=== PATIENT | female | born 1955 | race Hispanic/Latino ===

== ENCOUNTER 2016-12-11 16:50 | Observation (INO) | payer OTHER ==
[2016-12-11 17:09] VITALS: BMI 25.9
--- NOTE | 2016-12-11 18:12 | ED PDOC ---
Arrival/HPI - General Historian: Patient, Family EM Caveat: Altered Mental Status <Darío Bird - Last Filed: 12/11/16 21:58> <AmandaNain - Last Filed: 12/11/16 22:14> - General Chief Complaint: Altered Mental Status Time Seen by Provider: 12/11/16 17:15 - History of Present Illness Narrative History of Present Illness (Text): 12/11/16 18:02 This is a 61 year old female with Past medical history of hypertension, Bone cancer who presented to the Emergency department brought in by son-in-law for altered mental status. The family member states that at baseline his mother-in- law is a high functioning intelligent person, but she is now very confused and slow to respond to questions. The son states that patient showed up in front of his home this morning. The patient seems to have been brought to his home in a vehicle by an unknown transport driver. The son stated that he last saw her well about 2 days ago. The son went to her house and found her medications spilled everywhere. Of note, the son states that the patient's had HIV/AIDS, and the patient has been tested multiple times in the past with negative results. The son states that the patient has been complaining of lethargy for the past couple of weeks as well as diarrhea. At time of encounter, patient herself is complaining only of lightheadedness and dizziness. PMHx: hypertension, Bone cancer. Per review of the chart, patient has had left breast biopsy in 2016 showing Invasive ductal carcinoma. PSHx: Patient denies surgical history. Per review of the chart, patient also had and hip surgery. Allergies: NKDA Social: Per the son, patient is a former alcoholic, quitting 1 month ago. Patient is a former cocaine and heroin user, snorting both. PMD: Dr. Callahan Heme/Onc: Dr. Cedeno in [place] 12/11/16 18:17 (Darío Bird) Past Medical History - Infectious Disease Hx of Infectious Diseases: None - Tetanus Immunization Tetanus Immunization: Unknown - Past Medical History Past Medical History: Non-Contributing - Cardiac Hx Hypertension: Yes - Hematological/Oncological Hx Cancer: Yes (Bone cancer) - Musculoskeletal/Rheumatological Hx Osteoporosis: Yes Other/Comment: Bone CA - Psychiatric Hx Substance Use: Yes (snorted cocaine and heroin in the past. former alcoholic) - Surgical History Hx Section: Yes Other/Comment: right hip surgery - Anesthesia Hx Anesthesia: Yes Hx Anesthesia Reactions: No - Suicidal Assessment Feels Threatened In Home Enviroment: No <Darío Bird - Last Filed: 12/11/16 21:58> - Provider Review Nursing Documentation Reviewed: Yes <Nain Patel - Last Filed: 12/11/16 22:14> Family/Social History - Physician Review Nursing Documentation Reviewed: Yes Smoking Status: Light Smoker < 10 Cigarettes Daily Hx Alcohol Use: Yes Amount per day: 3 Hx Substance Use: Yes (used to snort cocaine and heroin) Hx Substance Use Treatment: No <Darío Bird - Last Filed: 12/11/16 21:58> Family/Social History: No Known Family HX <Nain Patel - Last Filed: 12/11/16 22:14> Allergies/Home Meds <Darío Bird - Last Filed: 12/11/16 21:58> <Nain Patel - Last Filed: 12/11/16 22:14> Allergies/Adverse Reactions: Allergies No Known Allergies Allergy (Verified 10/07/14 15:26) Home Medications: Home Meds Medication Instructions Recorded Confirmed Cholecalciferol [Vitamin D 1000 IU] 1 tab PO DAILY 12/11/16 12/11/16 DULoxetine [Cymbalta] 1 tab PO DAILY 12/11/16 12/11/16 Diazepam [Valium] 5 mg PO DAILY 12/11/16 12/11/16 Gabapentin [Neurontin] 1 tab PO TID 12/11/16 12/11/16 Lisinopril [Zestril] 1 tab PO DAILY 12/11/16 12/11/16 Loperamide [Imodium] 1 cap PO DAILY PRN 12/11/16 12/11/16 Loratadine [Claritin] 1 tab PO DAILY 12/11/16 12/11/16 Vitamin B Complex [Super B-50 1 cap PO DAILY 12/11/16 12/11/16 Complex] Zolpidem [Ambien] 1 tab PO HS 12/11/16 12/11/16 oxyCODONE [oxyCODONE Immediate 1 tab PO Q6H PRN 12/11/16 12/11/16 Release Tab] Review of Systems - Review of Systems Constitutional: Fatigue Eyes: Normal ENT: Normal Cardiovascular: Normal Gastrointestinal: Diarrhea (per son-in-law). absent: Abdominal Pain Genitourinary Female: Normal Musculoskeletal: Normal Skin: Normal Neurological: Dizziness Endocrine: Normal Hemo/Lymphatic: Normal Psychiatric: Normal <Darío Bird - Last Filed: 12/11/16 21:58> Physical Exam Vital Signs Reviewed: Yes Temperature: Afebrile Blood Pressure: Normal Pulse: Regular Respiratory Rate: Normal Appearance: Positive for: Comfortable Pain Distress: None Mental Status: Positive for: Confused - Systems Exam Head: Present: Atraumatic, Normocephalic Pupils: Present: Sluggish Extroacular Muscles: Present: EOMI Conjunctiva: Present: Normal Mouth: Present: Dry Neck: Present: Normal Range of Motion Respiratory/Chest: Present: Clear to Auscultation, Good Air Exchange. No: Accessory Muscle Use Cardiovascular: Present: Regular Rate and Rhythm, Normal S1, S2 Abdomen: Present: Normal Bowel Sounds. No: Tenderness, Distention Back: No: CVA Tenderness Upper Extremity: Present: Normal Inspection, NORMAL PULSES. No: Edema Lower Extremity: Present: Normal Inspection, NORMAL PULSES. No: Edema Neurological: Present: GCS=15, CN II-XII Intact, Motor Func Grossly Intact, Other (muscle strength symmetric bilaterally and 5/5 x 4 extremities) Skin: Present: Dry, Normal Color, Cold. No: Rashes Psychiatric: Present: Other (Confused, flat affect). No: Normal Insight, Normal Concentration <Darío Bird - Last Filed: 12/11/16 21:58> Medical Decision Making <Darío Bird - Last Filed: 12/11/16 21:58> <Nain Patel - Last Filed: 12/11/16 22:14> ED Course and Treatment: 12/11/16 18:28 Acetaminophen level, serum alcohol, ammonia level, EKG, cardiac ISO, CBC, CMP, Mag, Phos, Salicyclate level, TSH, Coags, VBG with shock panel, Urinalysis, Urine cultures, Blood cultures, Head CT w.o. contrast, CXR 12/11/16 18:30 12/11/16 21:52 Patient admitted to hospitalist service. (Darío Bird) A 61 year old female brought in for altered mental status. In agreement with resident note, which includes further HPI details. Patient was seen and evaluated with resident, came up with plan and treatment together. 12/11/16 22:08 Patient with AMS; etiology unclear at this time - will need further observation. Vitals are unremarkable. Case discussed with Dr. Callahan's VP RHEUMATOLOGY; patient has medicaid - will be placed on hospitalist's service. Discussed with Dr. Gimenez. (Nain Patel) - Lab Interpretations Lab Results: 12/11/16 18:00 12/11/16 18:00 Lab Results 12/11/16 19:55: Ammonia 16 12/11/16 18:30: HIV 1&2 Antibody Screen Negative 12/11/16 18:09: pO2 45, VBG pH 7.40, VBG pCO2 50.0, VBG HCO3 31.0 H, VBG Total CO2 32.5 H, VBG O2 Sat (Calc) 83.2 H, VBG Base Excess 5.0 H, VBG Potassium 3.5 L , Glucose 126 H, Lactate 2.0, FiO2 21.0, Sodium 136.0, Chloride 98.0, Venous Blood Potassium 3.5 L 12/11/16 18:00: Salicylates < 1 L, Acetaminophen < 10.0 L 12/11/16 18:00: TSH 3rd Generation 1.51, Alcohol, Quantitative < 10 12/11/16 18:00: Sodium 138, Potassium 3.5 L, Chloride 97 L, Carbon Dioxide 28, Anion Gap 17, BUN 14, Creatinine 0.7, Est GFR ( Amer) > 60, Est GFR (Non- Af Amer) > 60, Random Glucose 120 H, Calcium 10.1, Phosphorus 3.4, Magnesium 1.7 , Total Bilirubin 1.1, AST 83 H, ALT 42, Alkaline Phosphatase 84, Lactate Dehydrogenase 739 H, Total Creatine Kinase 165, Troponin I < 0.01, Total Protein 7.7, Albumin 4.0, Globulin 3.7, Albumin/Globulin Ratio 1.1, Lipase 25 12/11/16 18:00: PT 11.4, INR 1.06, APTT 33.0 H 12/11/16 18:00: WBC 6.1, RBC 4.73, Hgb 13.5, Hct 38.6, MCV 81.6, MCH 28.5, MCHC 35.0, RDW 13.3, Plt Count 132, MPV 10.7, Gran % 64.6, Lymph % (Auto) 23.3, Ector % (Auto) 11.1 H, Eos % (Auto) 0.5 L, Baso % (Auto) 0.5, Gran # 3.92, Lymph # 1.4 , Ector # 0.7 H, Eos # 0.0, Baso # 0.03 - RAD Interpretation Radiology Orders: 12/11/16 17:57 HEAD W/O CONTRAST [CT] Stat 12/11/16 17:58 CHEST ONE VIEW [RAD] Stat - Medication Orders Current Medication Orders: Discontinued Medications Sodium Chloride (Sodium Chloride 0.9%) 1,000 mls @ 999 mls/hr IV .Q1H1M STA Stop: 12/11/16 21:04 Last Admin: 12/11/16 20:30 Dose: 999 mls/hr - PA / VP RHEUMATOLOGY / Resident Statement L[facility]ERN has reviewed & agrees with the documentation as recorded. LAVERN has examined the patient and agrees with the treatment plan. <Nain Patel - Last Filed: 12/11/16 22:14> Disposition/Present on Arrival - Present on Arrival Any Indicators Present on Arrival: No History of DVT/PE: No History of Uncontrolled Diabetes: No Urinary Catheter: No History of Decub. Ulcer: No History Surgical Site Infection Following: None - Disposition Have Diagnosis and Disposition been Completed?: Yes Disposition Time: 22:00 Isolation: Special Contact <Darío Bird - Last Filed: 12/11/16 21:58> <Nain Patel - Last Filed: 12/11/16 22:14> - Disposition Diagnosis: Altered mental status Disposition: HOSPITALIZED Patient Problems: Current Active Problems Problem Status Onset Altered mental status Acute Condition: STABLE Referrals: [facility]ish[facility] Relisa, [Primary Care Provider] - Follow up with primary Forms: [employer] ([place]se)
[2016-12-11 18:20] LABS: BASO # 0.03 K/mm3 (0.0-2.0); BASO % 0.5 % (0.0-3.0); EOS % 0.5 % (1.5-5.0); GRAN # 3.92 (1.4-6.5); GRAN % 64.6 % (50.0-68.0); HEMATOCRIT 38.6 % (36.0-48.0); LYMPH # 1.4 (1.2-3.4); LYMPH % 23.3 % (22.0-35.0); MEAN CELL VOLUME 81.6 fl (80.0-105.0); MEAN CORPUSCULAR HEMOGLOBIN 28.5 pg (25.0-35.0); MEAN PLATELET VOLUME 10.7 fl (7.0-11.0); MONO # 0.7 (0.1-0.6); MONO % 11.1 % (1.0-6.0); RED CELL DISTRIBUTION WIDTH 13.3 % (11.5-14.5); WHITE BLOOD COUNT 6.1 10^3/ul (4.5-11.0)
[2016-12-11 18:28] LABS: ALB/GLOB RATIO 1.1 (1.1-1.8); ALKALINE PHOSPHATASE 84 U/L (38-133); ALT/SGPT 42 U/L (7-56); AST/SGOT 83 U/L (15-39); BILIRUBIN,TOTAL 1.1 mg/dL (0.2-1.3); BLOOD UREA NITROGEN 14 mg/dL (7-21); CALCIUM 10.1 mg/dL (8.4-10.5); CARBON DIOXIDE 28 mmol/L (21-33); CHLORIDE 97 mmol/L (98-107); GFR AFRICAN-AMERICAN > 60; GLUCOSE,RANDOM 120 mg/dL (70-110); INR 1.06 (0.93-1.08); LIPASE 25 U/L (23-300); MAGNESIUM 1.7 mg/dL (1.7-2.2); PHOSPHOROUS 3.4 mg/dL (2.5-4.5); POTASSIUM 3.5 mmol/L (3.6-5.0); SODIUM 138 mmol/L (132-148); TOTAL PROTEIN 7.7 g/dL (5.8-8.3)
[2016-12-11 18:31] LABS: ALCOHOL SERUM < 10 mg/dL (0-10)
[2016-12-11 18:39] LABS: TROPONIN I < 0.01 ng/mL
[2016-12-11 18:58] LABS: THYROID STIMULATING HORMONE 1.51 mIU/mL (0.46-4.68)
[2016-12-11] MEDS ORDERED: Sodium Chloride 0.9% 1,000 ML IV STA (20:04)
--- NOTE | 2016-12-11 20:14 | CT ---
EXAM: CT Head Without Intravenous Contrast EXAM DATE/TIME: 12/11/2016 5:57 PM CLINICAL HISTORY: 61 years old, female; Signs and symptoms; Altered mental status/memory loss; Amnesia, not specified; Additional info: Alt ms; Ho metastatic ca TECHNIQUE: Axial computed tomography images of the head/brain without intravenous contrast. All CT scans at this facility use one or more dose reduction techniques, viz.: automated exposure control; ma/kV adjustment per patient size (including targeted exams where dose is matched to indication; i.e. head); or iterative reconstruction technique. COMPARISON: No relevant prior studies available. FINDINGS: LIMITATIONS: Mild streak/motion artifact. BRAIN: 1.7 cm focal area of low density in the basal ganglia, most compatible with an old/chronic lacunar infarct. Areas of low density in the periventricular white matter bilaterally, most likely representing mild chronic small vessel ischemic changes. Diffuse, age-related cortical atrophy and ventriculomegaly. No significant acute abnormality identified. No acute hemorrhage seen within the brain. No acute extra-axial fluid collections visualized. No evidence of significant mass effect within the brain. VENTRICLES: See above. BONES/JOINTS: Findings compatible with an old fracture involving the right medial orbital wall. No acute fractures are seen. SOFT TISSUES: No acute abnormality of the visualized soft tissues is seen. SINUSES: Fluid in the left maxillary sinus, compatible with acute sinusitis. There is also mild opacification of the ethmoid sinuses bilaterally, and mild mucosal thickening in maxillary sinuses bilaterally. MASTOID AIR CELLS: Mastoid air cells appear clear. IMPRESSION: - No acute findings seen within the brain. - Acute left maxillary sinusitis. - See above for remaining findings.
[2016-12-11 23:30] LABS: URINE BILIRUBIN NEGATIVE (NEGATIVE); URINE BLOOD TRACE-INTACT (NEGATIVE); URINE GLUCOSE (UA) 100 mg/dL (NEGATIVE); URINE KETONE TRACE mg/dL (NEGATIVE); URINE LEUKOCYTE ESTERASE TRACE Leu/uL (NEGATIVE); URINE PROTEIN NEGATIVE mg/dL (<30 mg/dL); URINE UROBILINOGEN 0.2 E.U./dL (<1 E.U./dL)
[2016-12-11 23:36] LABS: URINE APPEARANCE SL CLOUDY (CLEAR); URINE COLOR YELLOW (YELLOW)
[2016-12-11 23:58] LABS: URINE RBC 0 - 2 /hpf (0-2)
[2016-12-11 23:59] LABS: URINE BACTERIA RARE (NEG)
--- NOTE | 2016-12-12 03:20 | CP.PCM.HP ---
<PAULINA MCGINNIS - Last Filed: 12/12/16 09:55> History of Present Illness - History of Present Illness History of Present Illness: Ms. Strauss is a 61 year old female with PMH significant for breast CA with mets to the bone and HTN, who was brought to the ED by her son in law for evaluation of altered mental status. She admits to memory loss and confusion that began this morning. Pt is currently very confused and responds slowly to questions. Pt currently denies fevers, chills, chest pain, abdominal pain, nausea, vomiting, or diarrhea. She is a poor historian. 10-point ROS reviewed and significant as above. PMD: Cardiello PMHX: Breast CA (invasive ductal carcinoma) with mets to the bone, HTN PSHX: Hip surgery (doesn't recall when or which hip) Meds: Claritin, IModium, Neurontin, Cymbalta, Super B-50 complex, Zestril, Valium, Vitamin D, Oxycodone, Ambien Allergies: NKDA Social: - lives alone, 2 yrs ago - denies smoking, EtOH but states she is a former recreational drug abuser ( long ago) Present on Admission - Present on Admission Any Indicators Present on Admission: No History of DVT/PE: No History of Uncontrolled Diabetes: No Review of Systems - Review of Systems Systems not reviewed;Unavailable: Altered Mental Status, Other (poor historian, unknown baseline) All systems: reviewed and no additional remarkable complaints except (as per HPI ) Past Patient History - Infectious Disease Hx of Infectious Diseases: None - Tetanus Immunizations Tetanus Immunization: Unknown - Past Social History Smoking Status: Never Smoked Alcohol: Other (states last drink was a month ago) Drugs: Other (hx of cocaine and heroin use) - CARDIAC Hx Cardiac Disorders: Yes Hx Hypertension: Yes - HEMATOLOGICAL/ONCOLOGICAL Hx Blood Disorders: Yes Hx Cancer: Yes (Breast cancer) - MUSCULOSKELETAL/RHEUMATOLOGICAL Hx Falls: No Hx Osteoporosis: Yes Other/Comment: Bone CA - PSYCHIATRIC Hx Substance Use: No (Denies.) - SURGICAL HISTORY Other/Comment: right hip surgery - ANESTHESIA Hx Anesthesia: Yes Hx Anesthesia Reactions: No Meds Allergies/Adverse Reactions: Allergies Allergy/AdvReac Type Severity Reaction Status Date / Time No Known Allergies Allergy Verified 12/18/16 15:05 Physical Exam - Constitutional Appears: Well, No Acute Distress, Confused - Head Exam Head Exam: ATRAUMATIC, NORMAL INSPECTION, NORMOCEPHALIC - Eye Exam Eye Exam: EOMI, Normal appearance, PERRL - ENT Exam ENT Exam: Mucous Membranes Moist, Normal Exam - Respiratory Exam Respiratory Exam: Clear to Auscultation Bilateral, NORMAL BREATHING PATTERN. absent: Accessory Muscle Use, Respiratory Distress - Cardiovascular Exam Cardiovascular Exam: RRR, +S1, +S2 - GI/Abdominal Exam GI & Abdominal Exam: Normal Bowel Sounds, Soft. absent: Distended, Tenderness - Extremities Exam Extremities exam: Positive for: normal inspection. Negative for: calf tenderness, pedal edema - Back Exam Back exam: NORMAL INSPECTION - Neurological Exam Neurological exam: Altered, Oriented x3 - Psychiatric Exam Psychiatric exam: Normal Affect, Normal Mood - Skin Skin Exam: Normal Color, Warm Results - Vital Signs Recent Vital Signs: Last Vital Signs Temp 98.1 F 12/12/16 00:00 Pulse 71 12/12/16 02:00 Resp 18 12/12/16 00:59 BP 170/88 H 12/12/16 00:12 Pulse Ox 98 12/12/16 00:00 - Labs Result Diagrams: 12/12/16 06:00 12/12/16 06:00 Labs: Laboratory Results - last 24 hr 12/11/16 12/12/16 22:52 00:50 APTT 32.8 H Urine Color Yellow Urine Appearance Sl cloudy Urine pH 7.0 Ur Specific [place] 1.015 Urine Protein Negative Urine Glucose (UA) 100 H Urine Ketones Trace H Urine Blood Trace-intact H Urine Nitrate Negative Urine Bilirubin Negative Urine Urobilinogen 0.2 Ur Leukocyte Esterase Trace H Urine RBC 0 - 2 Urine WBC 1 - 3 Ur Epithelial Cells 1 - 3 Urine Bacteria Rare Assessment & Plan - Assessment and Plan (Free Text) Assessment: 61 yo F brought to the ED by her son in law for evaluation of altered mental status Plan: 1. AMS -Transfer for monitoring - Neuro checks - neuro consult, recs appreciated - ammonia level - Head CT shows acute L maxillary sinusitis, no other acute findings 2. htn - chlorthalidone started - monitor vitals 3. hypokalemia - repleted - monitor and continue to replete HHD PTX/heparin patient evaluated and d/w attending, Dr. Pernell Mcginnis PGY 1 - Date & Time Date: 12/12/16 Time: 10:05 <Fauzia Gimenez - Last Filed: 12/19/16 12:22> Results - Vital Signs Recent Vital Signs: Last Vital Signs Temp 97.8 F 12/13/16 16:17 Pulse 66 12/13/16 16:17 Resp 20 12/13/16 16:17 BP 162/97 H 12/13/16 16:17 Pulse Ox 93 L 12/13/16 16:17 - Labs Result Diagrams: 12/13/16 05:50 12/13/16 05:50 Attending/Attestation - Attestation I have personally seen and examined this patient.: Yes I have fully participated in the care of the patient.: Yes I have reviewed all pertinent clinical information: Yes Notes (Text): 12/19/16 12:21 Agree with history , physical examination, assessment and plan.
[2016-12-12] MEDS ORDERED: Potassium Chloride 20 mEq ER Tab PO STA (05:14)
[2016-12-12] MEDS ORDERED: Potassium Chloride 20 mEq ER Tab PO ONE ×3 (05:25→11:45)
[2016-12-12] MEDS ORDERED: Pantoprazole 40 mg EC Tab PO SCH (06:00)
[2016-12-12 06:51] LABS: HEMATOCRIT 38.6 % (36.0-48.0); MEAN CELL VOLUME 81.3 fl (80.0-105.0); MEAN CORPUSCULAR HEMOGLOBIN 28.2 pg (25.0-35.0); MEAN CORPUSCULAR HGB CONC 34.7 g/dl (31.0-37.0); MEAN PLATELET VOLUME 10.1 fl (7.0-11.0); RED CELL DISTRIBUTION WIDTH 13.3 % (11.5-14.5); WHITE BLOOD COUNT 7.2 10^3/ul (4.5-11.0)
[2016-12-12 07:18] LABS: ALB/GLOB RATIO 1.1 (1.1-1.8); ALKALINE PHOSPHATASE 82 U/L (38-133); ALT/SGPT 45 U/L (7-56); AST/SGOT 77 U/L (15-39); BILIRUBIN,TOTAL 1.1 mg/dL (0.2-1.3); BLOOD UREA NITROGEN 10 mg/dL (7-21); CALCIUM 9.7 mg/dL (8.4-10.5); CARBON DIOXIDE 28 mmol/L (21-33); CHLORIDE 99 mmol/L (98-107); GFR AFRICAN-AMERICAN > 60; GLUCOSE,RANDOM 100 mg/dL (70-110); POTASSIUM 3.2 mmol/L (3.6-5.0); SODIUM 139 mmol/L (132-148); TOTAL PROTEIN 7.3 g/dL (5.8-8.3)
--- NOTE | 2016-12-12 08:17 | RAD ---
PROCEDURE: CHEST RADIOGRAPH, 1 VIEW HISTORY: alt ms COMPARISON: None available. FINDINGS: LUNGS: No acute infiltrate is identified. PLEURA: No pneumothorax. Trace pleural thickening is questioned at the left apex laterally though this could reflect subpleural fat. . CARDIOVASCULAR: Cardiac silhouette appears upper limits of normal limits however the patient rotated toward the right limiting evaluation. OSSEOUS STRUCTURES: No significant abnormalities. VISUALIZED UPPER ABDOMEN: Normal. OTHER FINDINGS: None. IMPRESSION: No acute infiltrate or promise pleural effusion. No pneumothorax. Limited pleural thickening is questioned at the left pulmonary apex laterally.
[2016-12-12 08:44] VITALS: RESP 20
--- NOTE | 2016-12-12 09:31 | CARD ---
APPROVED REPORT EKG Measurement Heart [id number] <Conclusion> Normal sinus rhythm Normal ECG
--- NOTE | 2016-12-12 12:03 | CP.PCM.CON ---
History of Present Illness - History of Present Illness History of Present Illness: Mrs. Strauss is a 61-year-old woman with metastatic breast cancer who has had seizure-like episodes before, that were attributed to her chemo infusion. However, she presents to the hospital now after having an episode consistent with generalized confusion and slurred speech lasting for a few hours, then resolving completely. She is now back to baseline. CT head had shown a hypodense area in the right frontal lobe and subcortical region. She is noted to have right upper extremity shaking, and this was noted last night as well. Review of Systems - Review of Systems All systems: reviewed and no additional remarkable complaints except Past Patient History - Infectious Disease Hx of Infectious Diseases: None - Tetanus Immunizations Tetanus Immunization: Unknown - Past Social History Smoking Status: Never Smoked Alcohol: Other (states last drink was a month ago) Drugs: Other (hx of cocaine and heroin use) - CARDIAC Hx Cardiac Disorders: Yes Hx Hypertension: Yes - HEMATOLOGICAL/ONCOLOGICAL Hx Blood Disorders: Yes Hx Cancer: Yes (Breast cancer) - MUSCULOSKELETAL/RHEUMATOLOGICAL Hx Falls: No Hx Osteoporosis: Yes Other/Comment: Bone CA - PSYCHIATRIC Hx Substance Use: No (Denies.) - SURGICAL HISTORY Other/Comment: right hip surgery - ANESTHESIA Hx Anesthesia: Yes Hx Anesthesia Reactions: No Meds Allergies/Adverse Reactions: Allergies Allergy/AdvReac Type Severity Reaction Status Date / Time No Known Allergies Allergy Verified 10/07/14 15:26 - Medications Medications: Current Medications Acetaminophen (Tylenol 325mg Tab) 650 mg PO Q6 PRN PRN Reason: Fever >100.4 F Chlorthalidone (Hygroton) 25 mg PO DAILY OLGA Last Admin: 12/12/16 09:39 Dose: 25 mg Cholecalciferol (Vitamin D) 1,000 iu PO DAILY OLGA Last Admin: 12/12/16 10:04 Dose: 1,000 iu Gabapentin (Neurontin) 100 mg PO TID OLGA PRN Reason: Protocol Last Admin: 12/12/16 10:04 Dose: 100 mg Heparin Sodium (Porcine) (Heparin) 5,000 units SC Q12 OLGA PRN Reason: Protocol Last Admin: 12/12/16 10:04 Dose: 5,000 units Lisinopril (Zestril) 2.5 mg PO DAILY OLGA Last Admin: 12/12/16 10:06 Dose: 2.5 mg Lorazepam (Ativan) 2 mg IVP ONCE ONE PRN Reason: Protocol Stop: 12/12/16 12:31 Lorazepam (Ativan) 1 mg IVP Q3 PRN; Protocol PRN Reason: Agitation Pantoprazole Sodium (Protonix Ec Tab) 40 mg PO 0600 OLGA Last Admin: 12/12/16 05:33 Dose: 40 mg Physical Exam - Constitutional Appears: Well - Head Exam Head Exam: ATRAUMATIC, NORMAL INSPECTION, NORMOCEPHALIC - Eye Exam Eye Exam: EOMI, Normal appearance, PERRL - ENT Exam ENT Exam: Mucous Membranes Moist, Normal Exam - Neck Exam Neck exam: Positive for: Normal Inspection - Respiratory Exam Respiratory Exam: Clear to Auscultation Bilateral, NORMAL BREATHING PATTERN - Cardiovascular Exam Cardiovascular Exam: REGULAR RHYTHM, +S1, +S2 - GI/Abdominal Exam GI & Abdominal Exam: Normal Bowel Sounds, Soft. absent: Tenderness - Rectal Exam Rectal Exam: Deferred - Extremities Exam Extremities exam: Positive for: normal inspection - Back Exam Back exam: NORMAL INSPECTION - Neurological Exam Neurological exam: Abnormal Gait, Alert, CN II-XII Intact, Oriented x3 Additional comments: Reflexes brisk on the left side upper and lower ext. Strength was symmetrical, but she had intermittent RUE shaking, rhythmic movements. Gait was wide-based. Plantar response was downgoing. - Psychiatric Exam Psychiatric exam: Agitated, Anxious - Skin Skin Exam: Dry, Intact, Normal Color, Warm Results - Vital Signs Recent Vital Signs: Last Vital Signs Temp 98.4 F 12/12/16 06:00 Pulse 75 12/12/16 10:06 Resp 20 12/12/16 06:00 BP 177/108 H 12/12/16 10:06 Pulse Ox 97 12/12/16 06:00 - Labs Result Diagrams: 12/12/16 06:00 12/12/16 06:00 Labs: Laboratory Results - last 24 hr 12/11/16 12/12/16 12/12/16 22:52 00:50 06:00 WBC 7.2 RBC 4.75 Hgb 13.4 Hct 38.6 MCV 81.3 MCH 28.2 MCHC 34.7 RDW 13.3 Plt Count 122 MPV 10.1 APTT 32.8 H Sodium Potassium Chloride Carbon Dioxide Anion Gap BUN Creatinine Est GFR ( Amer) Est GFR (Non-Af Amer) Random Glucose Calcium Total Bilirubin AST ALT Alkaline Phosphatase Ammonia Total Protein Albumin Globulin Albumin/Globulin Ratio Urine Color Yellow Urine Appearance Sl cloudy Urine pH 7.0 Ur Specific [place] 1.015 Urine Protein Negative Urine Glucose (UA) 100 H Urine Ketones Trace H Urine Blood Trace-intact H Urine Nitrate Negative Urine Bilirubin Negative Urine Urobilinogen 0.2 Ur Leukocyte Esterase Trace H Urine RBC 0 - 2 Urine WBC 1 - 3 Ur Epithelial Cells 1 - 3 Urine Bacteria Rare Urine Opiates Screen Urine Methadone Screen Ur Barbiturates Screen Ur Phencyclidine Scrn Ur Amphetamines Screen U Benzodiazepines Scrn U Oth Cocaine Metabols U Cannabinoids Screen 12/12/16 12/12/16 12/12/16 06:00 06:30 09:30 WBC RBC Hgb Hct MCV MCH MCHC RDW Plt Count MPV APTT Sodium 139 Potassium 3.2 L Chloride 99 Carbon Dioxide 28 Anion Gap 15 BUN 10 Creatinine 0.7 Est GFR ( Amer) > 60 Est GFR (Non-Af Amer) > 60 Random Glucose 100 Calcium 9.7 Total Bilirubin 1.1 AST 77 H ALT 45 Alkaline Phosphatase 82 Ammonia 9 Total Protein 7.3 Albumin 3.8 Globulin 3.4 Albumin/Globulin Ratio 1.1 Urine Color Urine Appearance Urine pH Ur Specific [place] Urine Protein Urine Glucose (UA) Urine Ketones Urine Blood Urine Nitrate Urine Bilirubin Urine Urobilinogen Ur Leukocyte Esterase Urine RBC Urine WBC Ur Epithelial Cells Urine Bacteria Urine Opiates Screen Negative Urine Methadone Screen Negative Ur Barbiturates Screen Negative Ur Phencyclidine Scrn Negative Ur Amphetamines Screen Negative U Benzodiazepines Scrn Positive H U Oth Cocaine Metabols Negative U Cannabinoids Screen Negative Assessment & Plan (1) Encephalopathy acute Assessment and Plan: The patient may have had a TIA, or could have had a seizure (complex partial), based on the history. Currently, she is back to baseline, but continues to have intermittent shaking of the RUE. I am concerned for possible brain mets from the breast cancer. Will obtain MRI of the brain with and without contrast and also evaluate her cerebrovasculature. An EEG will be done for further evaluation. Thank you. Status: Acute Priority: High
[2016-12-12] MEDS ORDERED: oxyCODONE 30 mg Immediate Release Tab PO PRN (13:30)
[2016-12-13 06:15] LABS: HEMATOCRIT 41.5 % (36.0-48.0); MEAN CELL VOLUME 82.5 fl (80.0-105.0); MEAN CORPUSCULAR HEMOGLOBIN 28.6 pg (25.0-35.0); MEAN CORPUSCULAR HGB CONC 34.7 g/dl (31.0-37.0); MEAN PLATELET VOLUME 10.6 fl (7.0-11.0); RED CELL DISTRIBUTION WIDTH 13.8 % (11.5-14.5); WHITE BLOOD COUNT 6.1 10^3/ul (4.5-11.0)
[2016-12-13 06:27] LABS: ALKALINE PHOSPHATASE 77 U/L (38-133); ALT/SGPT 35 U/L (7-56); AST/SGOT 71 U/L (15-39); BILIRUBIN,TOTAL 1.3 mg/dL (0.2-1.3); BLOOD UREA NITROGEN 8 mg/dL (7-21); CALCIUM 9.8 mg/dL (8.4-10.5); CARBON DIOXIDE 29 mmol/L (21-33); CHLORIDE 99 mmol/L (95-110); GFR AFRICAN-AMERICAN > 60; GLUCOSE,RANDOM 84 mg/dL (70-110); POTASSIUM 3.7 mmol/L (3.6-5.0); SODIUM 139 mmol/L (132-148); TOTAL PROTEIN 7.9 g/dL (5.8-8.3)
[2016-12-13] MEDS ORDERED: Gadodiamide 287 MG/ML VIAL (15ML) IV ONE (11:03)
--- NOTE | 2016-12-13 14:08 | CP.PCM.PN ---
Subjective - Date & Time of Evaluation Date of Evaluation: 12/13/16 Time of Evaluation: 14:02 - Subjective Subjective: Mrs. Strauss was seen and examined today at bedside. She had undergone the MRI , but was moving quite a bit making it difficult to evaluate. EEG was done and results are pending. However, I obtained a more detailed history from the son- in-law and it appears that the patient has had multiple episodes of loss of consciousness, tongue biting, shaking and confusion. With her history of metastatic breast cancer, this is likely descriptive of epilepsy. Furthermore, the patient has mood instability and changes in her ability to cope with stressful events. Her son-in-law mentioned a history of bipolar. I discussed starting an AED that also has mood stabilizing properties. Objective - Vital Signs/Intake and Output Vital Signs (last 24 hours): Temp Pulse Resp BP Pulse Ox 98.5 F 76 20 161/87 H 98 12/13/16 07:54 12/13/16 10:00 12/13/16 07:54 12/13/16 07:54 12/13/16 07:54 Intake and Output: 12/13/16 12/13/16 06:59 18:59 Intake Total 120 Balance 120 - Medications Medications: Current Medications Acetaminophen (Tylenol 325mg Tab) 650 mg PO Q6 PRN PRN Reason: Fever >100.4 F Cholecalciferol (Vitamin D) 1,000 iu PO DAILY [facility] Last Admin: 12/13/16 09:16 Dose: 1,000 iu Diazepam (Valium) 5 mg PO DAILY [facility] Last Admin: 12/13/16 09:15 Dose: 5 mg Duloxetine HCl (Cymbalta) 30 mg PO DAILY [facility] Last Admin: 12/13/16 09:16 Dose: 30 mg Gabapentin (Neurontin) 600 mg PO TID [facility] PRN Reason: Protocol Last Admin: 12/13/16 13:51 Dose: 600 mg Heparin Sodium (Porcine) (Heparin) 5,000 units SC Q12 [facility] PRN Reason: Protocol Last Admin: 12/13/16 09:16 Dose: 5,000 units Lisinopril (Zestril) 40 mg PO DAILY [facility] Last Admin: 12/13/16 09:16 Dose: 40 mg Lorazepam (Ativan) 1 mg IVP Q6H PRN; Protocol PRN Reason: Anxiety Last Admin: 12/13/16 09:52 Dose: 1 mg Oxycodone HCl (Oxycodone Immediate Release Tab) 30 mg PO Q6H PRN PRN Reason: Pain, severe (8-10) Pantoprazole Sodium (Protonix Ec Tab) 40 mg PO 0600 [facility] Last Admin: 12/12/16 05:33 Dose: 40 mg - Labs Labs: 12/13/16 05:50 12/13/16 05:50 PT 11.4 Seconds (9.9-11.8) 12/11/16 18:00 INR 1.06 (0.93-1.08) 12/11/16 18:00 APTT 32.8 Seconds (23.7-30.8) H 12/12/16 00:50 - Neurological Exam Additional comments: Neurologically unchanged compared with previous examination. Assessment and Plan (1) Encephalopathy acute Assessment & Plan: Likely due to seizure disorder. Will start Depakote at 500 mg BID and ask primary care to follow up on LFTs. Her liver function is currently slightly impaired, possibly due to her current condition. However, this is not a contraindication to starting Depakote. If her LFTs become significantly worsened, we may consider switching to Lamictal. She will need neurology outpatient follow-up with Dr. Dario Malhotra. She is cleared for discharge from a neurological standpoint, as long as she tolerates the first dose of Depakote well. Status: Acute
--- NOTE | 2016-12-13 14:20 | MRI ---
PROCEDURE: MRI BRAIN WITH AND WITHOUT CONTRAST HISTORY: AMS COMPARISON: None. TECHNIQUE: Multiplanar, multisequence MR images of the brain were obtained with and without intravenous contrast enhancement. 15 cc of Omniscan FINDINGS: HEMORRHAGE: None DWI: No evidence of an acute or early subacute infarction. BRAIN PARENCHYMA: No mass,mass effect or edema. Chronic microvascular changes are seen in the periventricular white matter right greater than left ENHANCEMENT: No abnormal intracranial enhancement. VENTRICLES: Unremarkable. No hydrocephalus. CRANIUM: Unremarkable. ORBITS: Grossly unremarkable. PARANASAL SINUSES/MASTOIDS: Clear VASCULAR SYSTEM: Skull base flow voids intact. OTHER FINDINGS: None . IMPRESSION: No acute findings
--- NOTE | 2016-12-13 14:24 | MRI ---
PROCEDURE: Magnetic Resonance Angiography Brain HISTORY: ams COMPARISON: None available. TECHNIQUE: 3D time of flight MR angiography of the intracranial arteries was performed. Rotating maximum intensity projection images were generated. FINDINGS: INTERNAL CEREBRAL ARTERIES: Unremarkable. The skull base, petrous, cavernous and supraclinoid segments are bilaterally widely patient. ANTERIOR CEREBRAL ARTERIES: Unremarkable. A1 and A2 segments are widely patent. Smaller distal branches unremarkable, as visualized. MIDDLE CEREBRAL ARTERIES: Unremarkable. M1 and M2 segments are widely patent. Perisylvian branches grossly symmetric. POSTERIOR CIRCULATION: Basilar Artery: Unremarkable. Distal Vertebral Arteries: Unremarkable. Posterior Cerebral Arteries: Unremarkable. Posterior Inferior Cerebellar Arteries: Unremarkable. ANEURYSM/ VASCULAR MALFORMATIONS: None. OTHER FINDINGS: The distal vessels are not well visualized. This may be technical or related to cardiac output. The proximal circulation is unremarkable IMPRESSION: Unremarkable MR angiography of the brain.
--- NOTE | 2016-12-13 14:25 | MRI ---
PROCEDURE: MR Angiography of the neck without contrast HISTORY: ams COMPARISON: None available. TECHNIQUE: 3D [id number] angiography of the neck was performed. Rotating maximum intensity projection images of the cervical carotid and vertebral arteries were generated. The origins of the common carotid arteries were not visualized, which is a limitation inherent to the non-contrast time of flight technique. FINDINGS: RIGHT CAROTID ARTERIES: Common Carotid Artery: Normal. Carotid Bifurcation: Normal. Internal Carotid Artery:Normal. External Carotid Artery (proximal branches): Normal. LEFT CAROTID ARTERIES: Common Carotid Artery: Normal. Carotid Bifurcation: Normal. Internal Carotid Artery:Normal. External Carotid Artery (proximal branches): Normal. VERTEBRAL ARTERIES: Right Vertebral Artery: Normal. Left Vertebral Artery: Normal. OTHER FINDINGS: None. IMPRESSION: Normal MR Angiography of the neck.
--- NOTE | 2016-12-13 15:50 | CP.PCM.DIS ---
Provider - Provider Date of Admission: 12/11/16 21:53 Attending physician: Sharan Ratliff MD Hospital Course - Lab Results Lab Results: Micro Results 12/11/16 22:52 Urine,Clean Catch Urine Culture - Final No Growth (<1,000 CFU/ML) Most Recent Lab Values WBC 6.1 10^3/ul (4.5-11.0) 12/13/16 05:50 RBC 5.03 10^6/uL (3.5-6.1) 12/13/16 05:50 Hgb 14.4 g/dL (12.0-16.0) 12/13/16 05:50 Hct 41.5 % (36.0-48.0) 12/13/16 05:50 MCV 82.5 fl (80.0-105.0) 12/13/16 05:50 MCH 28.6 pg (25.0-35.0) 12/13/16 05:50 MCHC 34.7 g/dl (31.0-37.0) 12/13/16 05:50 RDW 13.8 % (11.5-14.5) 12/13/16 05:50 Plt Count 162 10^3/uL (120.0-450.0) 12/13/16 05:50 MPV 10.6 fl (7.0-11.0) 12/13/16 05:50 Gran % 64.6 % (50.0-68.0) 12/11/16 18:00 Lymph % (Auto) 23.3 % (22.0-35.0) 12/11/16 18:00 Garza % (Auto) 11.1 % (1.0-6.0) H 12/11/16 18:00 Eos % (Auto) 0.5 % (1.5-5.0) L 12/11/16 18:00 Baso % (Auto) 0.5 % (0.0-3.0) 12/11/16 18:00 Gran # 3.92 (1.4-6.5) 12/11/16 18:00 Lymph # 1.4 (1.2-3.4) 12/11/16 18:00 Garza # 0.7 (0.1-0.6) H 12/11/16 18:00 Eos # 0.0 (0.0-0.7) 12/11/16 18:00 Baso # 0.03 K/mm3 (0.0-2.0) 12/11/16 18:00 PT 11.4 Seconds (9.9-11.8) 12/11/16 18:00 INR 1.06 (0.93-1.08) 12/11/16 18:00 APTT 32.8 Seconds (23.7-30.8) H 12/12/16 00:50 pO2 45 mm/Hg (30-55) 12/11/16 18:09 VBG pH 7.40 (7.32-7.43) 12/11/16 18:09 VBG pCO2 50.0 (40-60) 12/11/16 18:09 VBG HCO3 31.0 mmol/l (21-28) H 12/11/16 18:09 VBG Total CO2 32.5 mmol.L (22-28) H 12/11/16 18:09 VBG O2 Sat (Calc) 83.2 % (40-65) H 12/11/16 18:09 VBG Base Excess 5.0 mmol/L (0.0-2.0) H 12/11/16 18:09 VBG Potassium 3.5 mmol/L (3.6-5.2) L 12/11/16 18:09 Sodium 136.0 mmol/L (132-148) 12/11/16 18:09 Chloride 98.0 mmol/L (98-107) 12/11/16 18:09 Glucose 126 mg/dl (65-105) H 12/11/16 18:09 Lactate 2.0 mmol/L (0.7-2.1) 12/11/16 18:09 FiO2 21.0 % 12/11/16 18:09 Sodium 139 mmol/L (132-148) 12/13/16 05:50 Potassium 3.7 mmol/L (3.6-5.0) 12/13/16 05:50 Chloride 99 mmol/L (95-110) 12/13/16 05:50 Carbon Dioxide 29 mmol/L (21-33) 12/13/16 05:50 Anion Gap 15 (10-20) 12/13/16 05:50 BUN 8 mg/dL (7-21) 12/13/16 05:50 Creatinine 0.8 mg/dL (0.5-1.4) 12/13/16 05:50 Est GFR ( Amer) > 60 12/13/16 05:50 Est GFR (Non-Af Amer) > 60 12/13/16 05:50 Random Glucose 84 mg/dL (70-110) 12/13/16 05:50 Calcium 9.8 mg/dL (8.4-10.5) 12/13/16 05:50 Phosphorus 3.4 mg/dL (2.5-4.5) 12/11/16 18:00 Magnesium 1.7 mg/dL (1.7-2.2) 12/11/16 18:00 Total Bilirubin 1.3 mg/dL (0.2-1.3) 12/13/16 05:50 AST 71 U/L (15-39) H 12/13/16 05:50 ALT 35 U/L (7-56) 12/13/16 05:50 Alkaline Phosphatase 77 U/L (38-133) 12/13/16 05:50 Ammonia 9 umol/L (9-33) 12/12/16 06:30 Lactate Dehydrogenase 739 U/L (333-699) H 12/11/16 18:00 Total Creatine Kinase 165 U/L (35-230) 12/11/16 18:00 Troponin I < 0.01 ng/mL 12/11/16 18:00 Total Protein 7.9 g/dL (5.8-8.3) 12/13/16 05:50 Albumin 3.9 g/dL (3.0-4.8) 12/13/16 05:50 Globulin 3.9 gm/dL 12/13/16 05:50 Albumin/Globulin Ratio 1.0 (1.1-1.8) L 12/13/16 05:50 Lipase 25 U/L (23-300) 12/11/16 18:00 TSH 3rd Generation 1.51 mIU/mL (0.46-4.68) 12/11/16 18:00 Venous Blood Potassium 3.5 mmol/L (3.6-5.2) L 12/11/16 18:09 Urine Color Yellow (YELLOW) 12/11/16 22:52 Urine Appearance Sl cloudy (CLEAR) 12/11/16 22:52 Urine pH 7.0 (4.7-8.0) 12/11/16 22:52 Ur Specific Excelsior 1.015 (1.005-1.035) 12/11/16 22:52 Urine Protein Negative mg/dL (<30 mg/dL) 12/11/16 22:52 Urine Glucose (UA) 100 mg/dL (NEGATIVE) H 12/11/16 22:52 Urine Ketones Trace mg/dL (NEGATIVE) H 12/11/16 22:52 Urine Blood Trace-intact (NEGATIVE) H 12/11/16 22:52 Urine Nitrate Negative (NEGATIVE) 12/11/16 22:52 Urine Bilirubin Negative (NEGATIVE) 12/11/16 22:52 Urine Urobilinogen 0.2 E.U./dL (<1 E.U./dL) 12/11/16 22:52 Ur Leukocyte Esterase Trace Simba/uL (NEGATIVE) H 12/11/16 22:52 Urine RBC 0 - 2 /hpf (0-2) 12/11/16 22:52 Urine WBC 1 - 3 /hpf (0-6) 12/11/16 22:52 Ur Epithelial Cells 1 - 3 /hpf (0-5) 12/11/16 22:52 Urine Bacteria Rare (NEG) 12/11/16 22:52 Salicylates < 1 mg/dL (2.0-20.0) L 12/11/16 18:00 Urine Opiates Screen Negative (NEGATIVE) 12/12/16 09:30 Urine Methadone Screen Negative (NEGATIVE) 12/12/16 09:30 Acetaminophen < 10.0 ug/ml (10.0-20.0) L 12/11/16 18:00 Ur Barbiturates Screen Negative (NEGATIVE) 12/12/16 09:30 Ur Phencyclidine Scrn Negative (NEGATIVE) 12/12/16 09:30 Ur Amphetamines Screen Negative (NEGATIVE) 12/12/16 09:30 U Benzodiazepines Scrn Positive (NEGATIVE) H 12/12/16 09:30 U Oth Cocaine Metabols Negative (NEGATIVE) 12/12/16 09:30 U Cannabinoids Screen Negative (NEGATIVE) 12/12/16 09:30 Alcohol, Quantitative < 10 mg/dL (0-10) 12/11/16 18:00 HIV 1&2 Antibody Screen Negative (NEGATIVE) 12/11/16 18:30 Discharge Exam - Head Exam Head Exam: ATRAUMATIC, NORMAL INSPECTION, NORMOCEPHALIC Discharge Plan - Discharge Medications Prescriptions: Divalproex [Depmau FRANCOIS(*BID*)] 500 mg PO BID #[id number] - Follow Up Plan Condition: STABLE Disposition: HOME/ ROUTINE Patient education suggested?: Yes Additional Instructions: Please take the Depakote as prescribed for mood stabilization and seizure prophylaxis. Follow up with Dr Malhotra, the neurologist in 1 week ( phone number as described below) Please go to the nearest emergency room if you experience chest pain, fever, if the symptoms worsens or persists. Please follow up with PMD in 1 week. Referrals: Dario Malhotra MD [Staff Provider] -
[2016-12-13 16:17] VITALS: BP 162/97; PULSE 66; TEMP 97.8; O2SAT 93
[2016-12-13] MEDS ORDERED: Divalproex 500 mg DR(BID formulation) PO SCH (18:00)
--- NOTE | 2016-12-13 18:28 | EEG ---
DATE: 12/13/2016 CONDITION OF THE RECORDING: Drowsy. DIAGNOSIS: Altered mental status. MEDICATIONS: Reviewed by nurse per reconciliation sheet. INTERPRETATION: This is a 16-channel international recording. Background activity was composed of 6 to 7 cycles per second. There was limited amount of beta activity of 16 to 20 cycles per second seen in this recording. There was increased amount of theta activity of 5 to 7 cycles per second seen in this tracing. Drowsiness was characterized by mixed beta and theta activities. Sleep was characterized by vertex transient waves, sleep spindles, and bilateral slowing. Photic stimulation showed no change in the tracing. No paroxysmal activity noted in this recording. There was evidence of diffuse slowing throughout the EEG. CONCLUSION: Abnormal EEG due to presence of diffuse slowing consistent with [id number] bilateral cerebral dysfunction. No evidence of any epileptiform activity at this time. Please clinically correlate. Dario Malhotra MD
--- NOTE | 2016-12-13 21:40 | CP.PCM.DIS ---
<AJIT MURILLO - Last Filed: 12/13/16 21:25> Provider - Provider Date of Admission: 12/11/16 21:53 Attending physician: Sharan Ratliff MD Consults: Neuro: Ananya Time Spent in preparation of Discharge (in minutes): 45 Diagnosis - Discharge Diagnosis (1) Altered mental status Status: Acute Priority: High (2) Encephalopathy acute Status: Acute Priority: High Hospital Course - Lab Results Lab Results: Micro Results 12/11/16 22:52 Urine,Clean Catch Urine Culture - Final No Growth (<1,000 CFU/ML) Most Recent Lab Values WBC 6.1 10^3/ul (4.5-11.0) 12/13/16 05:50 RBC 5.03 10^6/uL (3.5-6.1) 12/13/16 05:50 Hgb 14.4 g/dL (12.0-16.0) 12/13/16 05:50 Hct 41.5 % (36.0-48.0) 12/13/16 05:50 MCV 82.5 fl (80.0-105.0) 12/13/16 05:50 MCH 28.6 pg (25.0-35.0) 12/13/16 05:50 MCHC 34.7 g/dl (31.0-37.0) 12/13/16 05:50 RDW 13.8 % (11.5-14.5) 12/13/16 05:50 Plt Count 162 10^3/uL (120.0-450.0) 12/13/16 05:50 MPV 10.6 fl (7.0-11.0) 12/13/16 05:50 Gran % 64.6 % (50.0-68.0) 12/11/16 18:00 Lymph % (Auto) 23.3 % (22.0-35.0) 12/11/16 18:00 [place] % (Auto) 11.1 % (1.0-6.0) H 12/11/16 18:00 Eos % (Auto) 0.5 % (1.5-5.0) L 12/11/16 18:00 Baso % (Auto) 0.5 % (0.0-3.0) 12/11/16 18:00 Gran # 3.92 (1.4-6.5) 12/11/16 18:00 Lymph # 1.4 (1.2-3.4) 12/11/16 18:00 [place] # 0.7 (0.1-0.6) H 12/11/16 18:00 Eos # 0.0 (0.0-0.7) 12/11/16 18:00 Baso # 0.03 K/mm3 (0.0-2.0) 12/11/16 18:00 PT 11.4 Seconds (9.9-11.8) 12/11/16 18:00 INR 1.06 (0.93-1.08) 12/11/16 18:00 APTT 32.8 Seconds (23.7-30.8) H 12/12/16 00:50 pO2 45 mm/Hg (30-55) 12/11/16 18:09 VBG pH 7.40 (7.32-7.43) 12/11/16 18:09 VBG pCO2 50.0 (40-60) 12/11/16 18:09 VBG HCO3 31.0 mmol/l (21-28) H 12/11/16 18:09 VBG Total CO2 32.5 mmol.L (22-28) H 12/11/16 18:09 VBG O2 Sat (Calc) 83.2 % (40-65) H 12/11/16 18:09 VBG Base Excess 5.0 mmol/L (0.0-2.0) H 12/11/16 18:09 VBG Potassium 3.5 mmol/L (3.6-5.2) L 12/11/16 18:09 Sodium 136.0 mmol/L (132-148) 12/11/16 18:09 Chloride 98.0 mmol/L (98-107) 12/11/16 18:09 Glucose 126 mg/dl (65-105) H 12/11/16 18:09 Lactate 2.0 mmol/L (0.7-2.1) 12/11/16 18:09 FiO2 21.0 % 12/11/16 18:09 Sodium 139 mmol/L (132-148) 12/13/16 05:50 Potassium 3.7 mmol/L (3.6-5.0) 12/13/16 05:50 Chloride 99 mmol/L (95-110) 12/13/16 05:50 Carbon Dioxide 29 mmol/L (21-33) 12/13/16 05:50 Anion Gap 15 (10-20) 12/13/16 05:50 BUN 8 mg/dL (7-21) 12/13/16 05:50 Creatinine 0.8 mg/dL (0.5-1.4) 12/13/16 05:50 Est GFR ( Amer) > 60 12/13/16 05:50 Est GFR (Non-Af Amer) > 60 12/13/16 05:50 Random Glucose 84 mg/dL (70-110) 12/13/16 05:50 Calcium 9.8 mg/dL (8.4-10.5) 12/13/16 05:50 Phosphorus 3.4 mg/dL (2.5-4.5) 12/11/16 18:00 Magnesium 1.7 mg/dL (1.7-2.2) 12/11/16 18:00 Total Bilirubin 1.3 mg/dL (0.2-1.3) 12/13/16 05:50 AST 71 U/L (15-39) H 12/13/16 05:50 ALT 35 U/L (7-56) 12/13/16 05:50 Alkaline Phosphatase 77 U/L (38-133) 12/13/16 05:50 Ammonia 9 umol/L (9-33) 12/12/16 06:30 Lactate Dehydrogenase 739 U/L (333-699) H 12/11/16 18:00 Total Creatine Kinase 165 U/L (35-230) 12/11/16 18:00 Troponin I < 0.01 ng/mL 12/11/16 18:00 Total Protein 7.9 g/dL (5.8-8.3) 12/13/16 05:50 Albumin 3.9 g/dL (3.0-4.8) 12/13/16 05:50 Globulin 3.9 gm/dL 12/13/16 05:50 Albumin/Globulin Ratio 1.0 (1.1-1.8) L 12/13/16 05:50 Lipase 25 U/L (23-300) 12/11/16 18:00 TSH 3rd Generation 1.51 mIU/mL (0.46-4.68) 12/11/16 18:00 Venous Blood Potassium 3.5 mmol/L (3.6-5.2) L 12/11/16 18:09 Urine Color Yellow (YELLOW) 12/11/16 22:52 Urine Appearance Sl cloudy (CLEAR) 12/11/16 22:52 Urine pH 7.0 (4.7-8.0) 12/11/16 22:52 Ur Specific [place] 1.015 (1.005-1.035) 12/11/16 22:52 Urine Protein Negative mg/dL (<30 mg/dL) 12/11/16 22:52 Urine Glucose (UA) 100 mg/dL (NEGATIVE) H 12/11/16 22:52 Urine Ketones Trace mg/dL (NEGATIVE) H 12/11/16 22:52 Urine Blood Trace-intact (NEGATIVE) H 12/11/16 22:52 Urine Nitrate Negative (NEGATIVE) 12/11/16 22:52 Urine Bilirubin Negative (NEGATIVE) 12/11/16 22:52 Urine Urobilinogen 0.2 E.U./dL (<1 E.U./dL) 12/11/16 22:52 Ur Leukocyte Esterase Trace [place]/uL (NEGATIVE) H 12/11/16 22:52 Urine RBC 0 - 2 /hpf (0-2) 12/11/16 22:52 Urine WBC 1 - 3 /hpf (0-6) 12/11/16 22:52 Ur Epithelial Cells 1 - 3 /hpf (0-5) 12/11/16 22:52 Urine Bacteria Rare (NEG) 12/11/16 22:52 Salicylates < 1 mg/dL (2.0-20.0) L 12/11/16 18:00 Urine Opiates Screen Negative (NEGATIVE) 12/12/16 09:30 Urine Methadone Screen Negative (NEGATIVE) 12/12/16 09:30 Acetaminophen < 10.0 ug/ml (10.0-20.0) L 12/11/16 18:00 Ur Barbiturates Screen Negative (NEGATIVE) 12/12/16 09:30 Ur Phencyclidine Scrn Negative (NEGATIVE) 12/12/16 09:30 Ur Amphetamines Screen Negative (NEGATIVE) 12/12/16 09:30 U Benzodiazepines Scrn Positive (NEGATIVE) H 12/12/16 09:30 U Oth Cocaine Metabols Negative (NEGATIVE) 12/12/16 09:30 U Cannabinoids Screen Negative (NEGATIVE) 12/12/16 09:30 Alcohol, Quantitative < 10 mg/dL (0-10) 12/11/16 18:00 HIV 1&2 Antibody Screen Negative (NEGATIVE) 12/11/16 18:30 - Hospital Course Hospital Course: 61F with PMH signifcant for breast CA with metastasis to the bone and HTN, who initially presented to the ER for AMS, brought by her son in law. She initially admitted to memory loss and confusion that began that morning, but then retracted her claims. Patient reportedly was slurring her speech and had shaking movements in her right arm. Initial workup, included CT head which was significant for acute left maxillary sinusitis, but no acute findings in the brain, despite reporting a focal area of hypodensity in the basal ganglia, and several of low density in the periventricular white matter. Neuro was consulted , who recommended EEG and brain MRI to r/o brain seizures and brain metastases. Today, patient had no particular complaints, and denies confusion, RUFFIN, shaking, syncope, CP, SOB, F/C, N/V/D/C, abdominal pain. EEG was negative for any epileptiform activity, and MRI showed only chronic microvascular changes in periventricular white matter. She was started on depakote by neuro, tolerated the first dose well, and subsequently cleared for discharge. All medications were discussed, and with son-in-law at bedside, all questions were answered to their satisfaction, and she was discharged to home. Patient was seen, discussed, and reviewed with attending Discharge Exam - Head Exam Head Exam: ATRAUMATIC, NORMAL INSPECTION, NORMOCEPHALIC - Eye Exam Eye Exam: EOMI, PERRL - ENT Exam ENT Exam: Mucous Membranes Moist - Neck Exam Neck exam: Full Rom - Respiratory Exam Respiratory Exam: Clear to PA & Lateral. absent: Rales, Rhonchi, Wheezes - Cardiovascular Exam Cardiovascular Exam: RRR, +S1, +S2 - GI/Abdominal Exam GI & Abdominal Exam: Normal Bowel Sounds. absent: Tenderness - Extremities Exam Extremities exam: full ROM - Neurological Exam Neurological exam: Alert, CN II-XII Intact, Oriented x3, Reflexes Normal - Psychiatric Exam Psychiatric exam: Normal Affect, Normal Mood - Skin Skin Exam: Dry, Intact Discharge Plan - Follow Up Plan Condition: STABLE Disposition: HOME/ ROUTINE Instructions: Altered Mental Status (GEN) Additional Instructions: Please take the Depakote as prescribed for mood stabilization and seizure prophylaxis. Follow up with Dr Malhotra, the neurologist in 1 week ( phone number as described below) Please go to the nearest emergency room if you experience chest pain, fever, if the symptoms worsens or persists. Please follow up with PMD in 1 week. Referrals: Dario Malhotra MD [Staff Provider] - <Bimal Almeida - Last Filed: 01/07/17 10:59> Provider - Provider Date of Admission: 12/11/16 21:53 Attending physician: Sharan Ratliff MD Hospital Course - Lab Results Lab Results: Micro Results 12/11/16 22:52 Urine,Clean Catch Urine Culture - Final No Growth (<1,000 CFU/ML) Most Recent Lab Values WBC 6.1 10^3/ul (4.5-11.0) 12/13/16 05:50 RBC 5.03 10^6/uL (3.5-6.1) 12/13/16 05:50 Hgb 14.4 g/dL (12.0-16.0) 12/13/16 05:50 Hct 41.5 % (36.0-48.0) 12/13/16 05:50 MCV 82.5 fl (80.0-105.0) 12/13/16 05:50 MCH 28.6 pg (25.0-35.0) 12/13/16 05:50 MCHC 34.7 g/dl (31.0-37.0) 12/13/16 05:50 RDW 13.8 % (11.5-14.5) 12/13/16 05:50 Plt Count 162 10^3/uL (120.0-450.0) 12/13/16 05:50 MPV 10.6 fl (7.0-11.0) 12/13/16 05:50 Gran % 64.6 % (50.0-68.0) 12/11/16 18:00 Lymph % (Auto) 23.3 % (22.0-35.0) 12/11/16 18:00 [place] % (Auto) 11.1 % (1.0-6.0) H 12/11/16 18:00 Eos % (Auto) 0.5 % (1.5-5.0) L 12/11/16 18:00 Baso % (Auto) 0.5 % (0.0-3.0) 12/11/16 18:00 Gran # 3.92 (1.4-6.5) 12/11/16 18:00 Lymph # 1.4 (1.2-3.4) 12/11/16 18:00 [place] # 0.7 (0.1-0.6) H 12/11/16 18:00 Eos # 0.0 (0.0-0.7) 12/11/16 18:00 Baso # 0.03 K/mm3 (0.0-2.0) 12/11/16 18:00 PT 11.4 Seconds (9.9-11.8) 12/11/16 18:00 INR 1.06 (0.93-1.08) 12/11/16 18:00 APTT 32.8 Seconds (23.7-30.8) H 12/12/16 00:50 pO2 45 mm/Hg (30-55) 12/11/16 18:09 VBG pH 7.40 (7.32-7.43) 12/11/16 18:09 VBG pCO2 50.0 (40-60) 12/11/16 18:09 VBG HCO3 31.0 mmol/l (21-28) H 12/11/16 18:09 VBG Total CO2 32.5 mmol.L (22-28) H 12/11/16 18:09 VBG O2 Sat (Calc) 83.2 % (40-65) H 12/11/16 18:09 VBG Base Excess 5.0 mmol/L (0.0-2.0) H 12/11/16 18:09 VBG Potassium 3.5 mmol/L (3.6-5.2) L 12/11/16 18:09 Sodium 136.0 mmol/L (132-148) 12/11/16 18:09 Chloride 98.0 mmol/L (98-107) 12/11/16 18:09 Glucose 126 mg/dl (65-105) H 12/11/16 18:09 Lactate 2.0 mmol/L (0.7-2.1) 12/11/16 18:09 FiO2 21.0 % 12/11/16 18:09 Sodium 139 mmol/L (132-148) 12/13/16 05:50 Potassium 3.7 mmol/L (3.6-5.0) 12/13/16 05:50 Chloride 99 mmol/L (95-110) 12/13/16 05:50 Carbon Dioxide 29 mmol/L (21-33) 12/13/16 05:50 Anion Gap 15 (10-20) 12/13/16 05:50 BUN 8 mg/dL (7-21) 12/13/16 05:50 Creatinine 0.8 mg/dL (0.5-1.4) 12/13/16 05:50 Est GFR ( Amer) > 60 12/13/16 05:50 Est GFR (Non-Af Amer) > 60 12/13/16 05:50 Random Glucose 84 mg/dL (70-110) 12/13/16 05:50 Calcium 9.8 mg/dL (8.4-10.5) 12/13/16 05:50 Phosphorus 3.4 mg/dL (2.5-4.5) 12/11/16 18:00 Magnesium 1.7 mg/dL (1.7-2.2) 12/11/16 18:00 Total Bilirubin 1.3 mg/dL (0.2-1.3) 12/13/16 05:50 AST 71 U/L (15-39) H 12/13/16 05:50 ALT 35 U/L (7-56) 12/13/16 05:50 Alkaline Phosphatase 77 U/L (38-133) 12/13/16 05:50 Ammonia 9 umol/L (9-33) 12/12/16 06:30 Lactate Dehydrogenase 739 U/L (333-699) H 12/11/16 18:00 Total Creatine Kinase 165 U/L (35-230) 12/11/16 18:00 Troponin I < 0.01 ng/mL 12/11/16 18:00 Total Protein 7.9 g/dL (5.8-8.3) 12/13/16 05:50 Albumin 3.9 g/dL (3.0-4.8) 12/13/16 05:50 Globulin 3.9 gm/dL 12/13/16 05:50 Albumin/Globulin Ratio 1.0 (1.1-1.8) L 12/13/16 05:50 Lipase 25 U/L (23-300) 12/11/16 18:00 TSH 3rd Generation 1.51 mIU/mL (0.46-4.68) 12/11/16 18:00 Venous Blood Potassium 3.5 mmol/L (3.6-5.2) L 12/11/16 18:09 Urine Color Yellow (YELLOW) 12/11/16 22:52 Urine Appearance Sl cloudy (CLEAR) 12/11/16 22:52 Urine pH 7.0 (4.7-8.0) 12/11/16 22:52 Ur Specific [place] 1.015 (1.005-1.035) 12/11/16 22:52 Urine Protein Negative mg/dL (<30 mg/dL) 12/11/16 22:52 Urine Glucose (UA) 100 mg/dL (NEGATIVE) H 12/11/16 22:52 Urine Ketones Trace mg/dL (NEGATIVE) H 12/11/16 22:52 Urine Blood Trace-intact (NEGATIVE) H 12/11/16 22:52 Urine Nitrate Negative (NEGATIVE) 12/11/16 22:52 Urine Bilirubin Negative (NEGATIVE) 12/11/16 22:52 Urine Urobilinogen 0.2 E.U./dL (<1 E.U./dL) 12/11/16 22:52 Ur Leukocyte Esterase Trace [place]/uL (NEGATIVE) H 12/11/16 22:52 Urine RBC 0 - 2 /hpf (0-2) 12/11/16 22:52 Urine WBC 1 - 3 /hpf (0-6) 12/11/16 22:52 Ur Epithelial Cells 1 - 3 /hpf (0-5) 12/11/16 22:52 Urine Bacteria Rare (NEG) 12/11/16 22:52 Salicylates < 1 mg/dL (2.0-20.0) L 12/11/16 18:00 Urine Opiates Screen Negative (NEGATIVE) 12/12/16 09:30 Urine Methadone Screen Negative (NEGATIVE) 12/12/16 09:30 Acetaminophen < 10.0 ug/ml (10.0-20.0) L 12/11/16 18:00 Ur Barbiturates Screen Negative (NEGATIVE) 12/12/16 09:30 Ur Phencyclidine Scrn Negative (NEGATIVE) 12/12/16 09:30 Ur Amphetamines Screen Negative (NEGATIVE) 12/12/16 09:30 U Benzodiazepines Scrn Positive (NEGATIVE) H 12/12/16 09:30 U Oth Cocaine Metabols Negative (NEGATIVE) 12/12/16 09:30 U Cannabinoids Screen Negative (NEGATIVE) 12/12/16 09:30 Alcohol, Quantitative < 10 mg/dL (0-10) 12/11/16 18:00 HIV 1&2 Antibody Screen Negative (NEGATIVE) 12/11/16 18:30 Attending/Attestation - Attestation I have personally seen and examined this patient.: Yes I have fully participated in the care of the patient.: Yes I have reviewed all pertinent clinical information, including history, physical exam and plan: Yes Notes (Text): Today, patient had no particular complaints, and denies confusion, RUFFIN, shaking, syncope, CP, SOB, F/C, N/V/D/C, abdominal pain. EEG was negative for any epileptiform activity, and MRI showed only chronic microvascular changes in periventricular white matter. She was started on depakote by neuro, tolerated the first dose well, and subsequently cleared for discharge. All medications were discussed, and with son-in-law at bedside, all questions were answered to their satisfaction, and she was discharged to home.
== END 2016-12-13 18:26 | disposition home or self-care (01) ==
LOC: ED 16:50 → ERH 21:53 → 3RNO 23:56
PROVIDERS: ADMIT Hospitalist; ATTEND Hospitalist
DX: G93.40 Encephalopathy, unspecified (principal); G40.909 Epilepsy, unspecified, not intractable, without status epilepticus; C79.51 Secondary malignant neoplasm of bone; I10 Essential (primary) hypertension; E87.6 Hypokalemia; J01.00 Acute maxillary sinusitis, unspecified; Z85.3 Personal history of malignant neoplasm of breast
CPT/HCPCS: 36415; 70450; 70544; 70547; 70553; 71010; 80053; 80320; 80324; 80329; 80345; 80346; 80349; 80353; 80358; 80361; 81001; 82140; 82550; 82803; 83615; 83690; 83735; 83992; 84100; 84443; 84484; 85025; 85027; 85610; 85730; 86703; 87040; 87086; 93005; 95812; 96360; 97116; 97161; 99285; A9579; G0378; G8978; G8979; G8980; J1644; J2060; J7040

== ENCOUNTER 2016-12-18 14:47 | Emergency (ER) | payer OTHER ==
[2016-12-18 14:48] VITALS: BMI 25.9
--- NOTE | 2016-12-18 15:11 | ED PDOC ---
Arrival/HPI - General Chief Complaint: Altered Mental Status Time Seen by Provider: 12/18/16 15:10 Historian: Patient, Family - History of Present Illness Narrative History of Present Illness (Text): 12/18/16 15:10 A 61 year old female presents to the emergency department complaining of lightheadedness and near syncope today. Son-in-law reports patient was found wondering the streets. He states patient was confused and not like herself. Patient denies any fever, chills, nausea, vomiting, chest pain, shortness of breath or any other complaints. PMD: Dr. Callahan Past Medical History - Provider Review Nursing Documentation Reviewed: Yes - Infectious Disease Hx of Infectious Diseases: None - Tetanus Immunization Tetanus Immunization: Unknown - Past Medical History Past Medical History: Non-Contributing - Cardiac Hx Cardiac Disorders: Yes Hx Hypertension: Yes - Pulmonary Hx Respiratory Disorders: No - Neurological Hx Neurological Disorder: No - HEENT Hx HEENT Disorder: No - Renal Hx Renal Disorder: No - Endocrine/Metabolic Hx Endocrine Disorders: No - Hematological/Oncological Hx Blood Disorders: Yes Hx Cancer: Yes (Breast cancer) - Integumentary Hx Dermatological Disorder: No - Musculoskeletal/Rheumatological Hx Musculoskeletal Disorders: Yes Hx Falls: No Hx Osteoporosis: Yes Other/Comment: Bone CA - Gastrointestinal Hx Gastrointestinal Disorders: No - Genitourinary/Gynecological Hx Genitourinary Disorders: No - Psychiatric Hx Psychophysiologic Disorder: No Hx Substance Use: No (Denies.) - Surgical History Other/Comment: right hip surgery - Anesthesia Hx Anesthesia: Yes Hx Anesthesia Reactions: No - Suicidal Assessment Feels Threatened In Home Enviroment: No Family/Social History - Physician Review Nursing Documentation Reviewed: Yes Family/Social History: No Known Family HX Smoking Status: Never Smoked Hx Alcohol Use: No Amount per day: 3 Hx Substance Use: No (Denies.) Hx Substance Use Treatment: No Allergies/Home Meds Allergies/Adverse Reactions: Allergies No Known Allergies Allergy (Verified 12/18/16 15:05) Home Medications: Home Meds Medication Instructions Recorded Confirmed Unobtainable 12/18/16 12/18/16 Physical Exam - Physical Exam Narrative Physical Exam (Text): - Review of Systems Constitutional: Normal. absent: Fatigue, Weight Change, Fevers Eyes: Normal ENT: Normal Respiratory: Normal absent: SOB, Cough, Sputum Cardiovascular: (+) Near-syncope absent: Chest pain, Palpitations Gastrointestinal: Normal absent: Abdominal pain, Diarrhea, Nausea, Vomiting Genitourinary: Normal. absent: Dysuria, Frequency, Hematuria Musculoskeletal: Normal. absent: Arthralgias, Back Pain, Neck Pain Skin: Normal Neurological: (+) Lightheadedness absent: Focal Weakness Endocrine: Normal Hemo/Lymphatic: Normal Psychiatric: Normal - Physical exam Patient appears age appropriate, speaking full sentences without difficulty - Systems Exam Head: Present: Atraumatic, Normocephalic Pupils: Present: PERRL Extraocular Muscles: Present: EOMI Conjunctiva: Present: Normal Mouth: Present: Moist Mucous Membranes Neck: Present: Normal Range of Motion. No: MIDLINE TENDERNESS, Paraspinal Tenderness Respiratory/Chest: Present: Clear to Auscultation, Good Air Exchange. No: Respiratory Distress, Accessory Muscle Use, Tachypnic Cardiovascular: Present: Regular Rate and Rhythm, Normal S1, S2, Peripheral Pulses Present. No: Murmurs Abdomen: Present: Normal Bowel Sounds, No: Tenderness, Peritoneal Signs, Rebound, Guarding, Distention Back: Present: Normal Inspection. No: Midline Tenderness, Paraspinal Tenderness Upper Extremity: Present: Normal Inspection. No: Cyanosis, Edema Lower Extremity: Present: Normal Inspection. No: Edema Neurological: Present: GCS=15, Speech Normal, cranial nerves II through XII fully intact with no cerebellar abnormality, neuro-sensory fully intact. No focal neurological deficits. Skin: Present: Warm, Dry, Normal Color. No: Rashes Lymphatic: Present: OX3, NI, NC Psychiatric: Present: Alert, Oriented x 3, Normal Insight, Normal Concentration Vital Signs Reviewed: Yes Vital Signs Temp Pulse Resp BP Pulse Ox 12/18/16 15:17 98.8 F 12/18/16 15:11 108 H 17 112/73 94 L Temperature: Afebrile Blood Pressure: Normal Pulse: Tachycardic Respiratory Rate: Normal Appearance: Positive for: Well-Appearing, Non-Toxic, Comfortable Pain Distress: None Mental Status: Positive for: Alert and Oriented X 3 Medical Decision Making ED Course and Treatment: 12/18/16 15:10 Impression: A 61 year old female with lightheadedness and near-syncope. Physical exam unremarkable. Plan: -- Head CT -- Chest xray -- Labs -- Urinalysis -- Reassess and disposition Progress Notes: EKG shows sinus tachycardia at [address]-segment elevations, normal intervals. Interpreted by me. Report Date: 12/18/16 15:44:25 Procedure: Chest xray Dictated by: Riki Fan MD Impression: No active disease. Report Date: 12/18/16 20:45 EXAM: CT Head Without Intravenous Contrast Dictated and Authenticated by: Stephon Talley MD IMPRESSION: 1. No acute intracranial hemorrhage or acute territorial type infarct. 2. There is a stable hypodense lacunar infarct within the right basal ganglia. 3. There are scattered foci of hypodensity within the cerebral white matter, likely representing small vessel ischemic disease in a patient this age. 4. Mild atrophy. 5. Paranasal sinus disease is noted above. 6. If further evaluation is clinically indicated, an MRI of the brain is recommended. 12/18/16 21:17 Patient's previous records reviewed. Patient was recently discharged from the hospital after she was found confused. Patient reportedly had slurring of speech and shaking movements of her right arm. Her initial workup which included CT head showed acute left maxillary sinusitis, no other findings. Patient's EEG and MRI were negative. Patient was started on Depakote as a mood stabilizer, and was discharged home. 12/18/16 21:[address] Callahan, states to speak with family about someone living with patient at home or consider long-term placement. 12/18/16 21:40 advised pt to stay in the hospital for further w/u The patient refuses admission and wishes to leave the Emergency Department against my medical advice. Patient was told that admission to the hospital is necessary and a full explanation of the reasons why was given, and understood by patient. The risks of leaving were explained and include worsening of condition, and permanent disability and from an undiagnosed or untreated condition. The patient accepts these risks, and is in my judgment is competent and capable of understanding the clinical situation and my explanation of the risks of leaving. Patient was given the opportunity to ask questions and change mind. The patient was instructed regarding the best care for the present symptoms, and to follow up with Dr. Callahan as soon as possible, or return to the Emergency Department at any time for continuing care. spoke with Ady, pt's son-in-law, states he will come and pick her up I advised to f/u with Dr. Callahan for further outpatient w/u and possible home nursing or health aid visits pt in no distress and denies complaints no focal neurological deficits on reexamination ambulates with her cane - Lab Interpretations Lab Results: 12/18/16 16:25 12/18/16 16:25 Lab Results 12/18/16 17:05: Urine Color Yellow, Urine Appearance Clear, Urine pH 6.5, Ur Specific [place] <= 1.005, Urine Protein Trace H, Urine Glucose (UA) Negative, Urine Ketones Negative, Urine Blood Trace-lysed H, Urine Nitrate Negative, Urine Bilirubin Negative, Urine Urobilinogen 0.2, Ur Leukocyte Esterase Small H , Urine RBC 0 - 2, Urine WBC 1 - 3, Ur Epithelial Cells 4 - 5 12/18/16 16:25: Magnesium 1.4 L 12/18/16 16:25: Sodium 131 L, Potassium 3.2 L, Chloride 90 L, Carbon Dioxide 27 , Anion Gap 17, BUN 7, Creatinine 0.9, Est GFR ( Amer) > 60, Est GFR (Non -Af Amer) > 60, Random Glucose 98, Calcium 9.7, Total Bilirubin 1.0, AST 54 H, ALT 28, Alkaline Phosphatase 87, Total Protein 8.0, Albumin 4.2, Globulin 3.8, Albumin/Globulin Ratio 1.1 12/18/16 16:25: PT 11.0, INR 1.02, APTT 27.3 12/18/16 16:25: WBC 9.4 D, RBC 5.12, Hgb 14.6, Hct 41.7, MCV 81.4, MCH 28.5, MCHC 35.0, RDW 13.8, Plt Count 229, MPV 10.0, Gran % 66.4, Lymph % (Auto) 22.4, [place] % (Auto) 9.8 H, Eos % (Auto) 1.2 L, Baso % (Auto) 0.2, Gran # 6.26, Lymph # 2.1, [place] # 0.9 H, Eos # 0.1, Baso # 0.02 12/18/16 16:25: Alcohol, Quantitative < 10 12/18/16 15:09: POC Glucose (mg/dL) 101 I have reviewed the lab results: Yes - RAD Interpretation Radiology Orders: 09/05/17 15:20 HEAD W/O CONTRAST [CT] Stat 12/18/16 15:21 CHEST PORTABLE [RAD] Stat - Medication Orders Current Medication Orders: Discontinued Medications Magnesium Sulfate/Dextrose (Magnesium Sulfate 1 Gm/100 Ml D5w) 1 gm in 100 mls @ 100 mls/hr IVPB ONCE ONE Stop: 12/18/16 18:03 Potassium Chloride (Potassium Chloride 20 Meq/100 Ml) 20 meq in 100 mls @ 50 mls/hr IVPB Q2H OLGA Stop: 12/18/16 21:14 Last Admin: 12/18/16 19:54 Dose: 50 mls/hr - Scribe Statement The provider has reviewed the documentation as recorded by the Betoibsabas Hansen Provider Scribe Attestation: All medical record entries made by the Scribe were at my direction and personally dictated by me. I have reviewed the chart and agree that the record accurately reflects my personal performance of the history, physical exam, medical decision making, and the department course for this patient. I have also personally directed, reviewed, and agree with the discharge instructions and disposition. Disposition/Present on Arrival - Present on Arrival Any Indicators Present on Arrival: No History of DVT/PE: No History of Uncontrolled Diabetes: No Urinary Catheter: No History of Decub. Ulcer: No History Surgical Site Infection Following: None - Disposition Have Diagnosis and Disposition been Completed?: Yes Diagnosis: Near syncope Disposition: AGAINST MEDICAL ADVICE Disposition Time: 21:49 Patient Plan: Discharge Condition: GOOD Discharge Instructions (ExitCare): Near Syncope (ED), Lightheadedness (ED) Additional Instructions: PLEASE RETURN TO THE EMERGENCY DEPARTMENT FOR NEW OR WORSENING SYMPTOMS. RETURN RIGHT AWAY IF YOU CANNOT FOLLOW UP WITH YOUR PRIMARY CARE DOCTOR, CLINIC, OR SPECIALIST IN 1-2 DAYS. Referrals: Gerson Callahan MD [Primary Care Provider] - Follow up with primary Forms: [employer] (Malay)
[2016-12-18 15:18] VITALS: TEMP 98.8
--- NOTE | 2016-12-18 15:46 | RAD ---
HISTORY: cough COMPARISON: 12/11/2016 FINDINGS: LUNGS: No active pulmonary disease. PLEURA: No significant pleural effusion identified, no pneumothorax apparent. CARDIOVASCULAR: Normal. OSSEOUS STRUCTURES: No significant abnormalities. VISUALIZED UPPER ABDOMEN: Normal. OTHER FINDINGS: None. IMPRESSION: No active disease.
[2016-12-18 16:50] LABS: ALB/GLOB RATIO 1.1 (1.1-1.8); ALKALINE PHOSPHATASE 87 U/L (38-126); ALT/SGPT 28 U/L (7-56); AST/SGOT 54 U/L (14-36); BLOOD UREA NITROGEN 7 mg/dL (7-21); CALCIUM 9.7 mg/dL (8.4-10.5); CARBON DIOXIDE 27 mmol/L (21-33); CHLORIDE 90 mmol/L (98-107); GFR AFRICAN-AMERICAN > 60; GLUCOSE,RANDOM 98 mg/dL (70-110); POTASSIUM 3.2 mmol/L (3.6-5.0); SODIUM 131 mmol/L (132-148)
[2016-12-18 16:53] LABS: BASO # 0.02 K/mm3 (0.0-2.0); BASO % 0.2 % (0.0-3.0); EOS # 0.1 (0.0-0.7); EOS % 1.2 % (1.5-5.0); GRAN # 6.26 (1.4-6.5); GRAN % 66.4 % (50.0-68.0); HEMATOCRIT 41.7 % (36.0-48.0); LYMPH # 2.1 (1.2-3.4); LYMPH % 22.4 % (22.0-35.0); MEAN CELL VOLUME 81.4 fl (80.0-105.0); MEAN CORPUSCULAR HEMOGLOBIN 28.5 pg (25.0-35.0); MONO # 0.9 (0.1-0.6); MONO % 9.8 % (1.0-6.0); RED CELL DISTRIBUTION WIDTH 13.8 % (11.5-14.5); WHITE BLOOD COUNT 9.4 10^3/ul (4.5-11.0)
[2016-12-18 16:59] LABS: INR 1.02 (0.93-1.08); PARTIAL THROMBOPLASTIN TIME 27.3 Seconds (23.7-30.8)
[2016-12-18] MEDS ORDERED: Magnesium Sulfate 1 gm in D5W 1 GM/100 ML BAG IVPB ONE (17:04)
[2016-12-18 17:16] LABS: PH,URINE 6.5 (4.7-8.0); URINE BILIRUBIN NEGATIVE (NEGATIVE); URINE BLOOD TRACE-LYSED (NEGATIVE); URINE GLUCOSE (UA) NEGATIVE (NEGATIVE); URINE KETONE NEGATIVE (NEGATIVE); URINE LEUKOCYTE ESTERASE SMALL Leu/uL (NEGATIVE); URINE PROTEIN TRACE mg/dL (<30 mg/dL); URINE UROBILINOGEN 0.2 E.U./dL (<1 E.U./dL)
[2016-12-18 17:21] LABS: URINE APPEARANCE CLEAR (CLEAR); URINE COLOR YELLOW (YELLOW)
[2016-12-18 17:33] LABS: URINE RBC 0 - 2 /hpf (0-2)
--- NOTE | 2016-12-18 20:46 | CT ---
EXAM: CT Head Without Intravenous Contrast EXAM DATE/TIME: 12/18/2016 3:20 PM CLINICAL HISTORY: The patient age is 61 years old and is female; Signs and symptoms; Altered mental status/memory loss; Additional info: [facility] Facility exam id and description: Ct heads head w/o contrast TECHNIQUE: Axial computed tomography images of the head/brain without intravenous contrast. All CT scans at this facility use one or more dose reduction techniques, viz.: automated exposure control; ma/kV adjustment per patient size (including targeted exams where dose is matched to indication; i.e. head); or iterative reconstruction technique. COMPARISON: CT - HEAD W/O CONTRAST 12/11/2016 6:57:43 PM FINDINGS: Brain: There is a stable hypodense lacunar infarct within the right basal ganglia. There are scattered foci of hypodensity within the cerebral white matter, likely representing small vessel ischemic disease in a patient this age. The acuity of the white matter disease is indeterminate. The white-green differentiation is preserved demonstrating no acute territorial type infarct. There is mild prominence of the ventricles and sulci, compatible with atrophy. No acute intracranial hemorrhage is seen. Midline shift: There is no midline shift. Ventricles: See above. Bones/joints: The calvarium demonstrates no evidence for a depressed fracture. Soft tissues: No acute abnormality. Vasculature: There is atherosclerotic calcification of the cavernous internal carotid arteries. Sinuses: There is mucosal thickening of the bilateral maxillary sinuses and scattered ethmoid air cells. There is opacification of a right anterior ethmoid air cell. Mastoid air cells: No mastoid effusion. IMPRESSION: 1. No acute intracranial hemorrhage or acute territorial type infarct. 2. There is a stable hypodense lacunar infarct within the right basal ganglia. 3. There are scattered foci of hypodensity within the cerebral white matter, likely representing small vessel ischemic disease in a patient this age. 4. Mild atrophy. 5. Paranasal sinus disease is noted above. 6. If further evaluation is clinically indicated, an MRI of the brain is recommended.
[2016-12-18] MEDS ORDERED: Magnesium Oxide 400 mg Tab UD PO STA (21:58)
--- NOTE | 2016-12-18 22:52 | CARD ---
APPROVED REPORT EKG Measurement Heart [id number] <Conclusion> Sinus tachycardia Minimal voltage criteria for LVH, may be normal variant Possible Anterior infarct, age undetermined Abnormal ECG
[2016-12-19 03:02] VITALS: BP 155/98; PULSE 72; RESP 16; O2SAT 99
== END 2016-12-18 22:10 | disposition left against medical advice (07) ==
LOC: ED 14:47
DX: R55 Syncope and collapse (principal)
CPT/HCPCS: 70450; 71010; 80053; 80320; 81001; 82948; 83735; 85025; 85610; 85730; 87086; 93005; 96365; 96366; 99285; J3480

== ENCOUNTER 2017-06-15 14:51 | Inpatient (IN) | payer OTHER ==
--- NOTE | 2017-06-15 15:36 | ED PDOC ---
Arrival/HPI <Jerry Thomas - Last Filed: 06/15/17 18:08> <Ata Torres - Last Filed: 06/16/17 08:11> - General Chief Complaint: Pain, Chronic Time Seen by Provider: 06/15/17 14:54 - History of Present Illness Narrative History of Present Illness (Text): 06/15/17 15:32 Pt is a 61 yo F with PMH of invasive ductal carcinoma of the left breast with metastasis to bone and hypertension presents to ED due to pain all over for the past day. Pt states that pain is 10/10 and sharp. Pt is unable to localize pain. Pt also complains of subjective fevers. Pt has dry blood on lips and abrasion on tip of her nose and states that its from a sore on the corner of her mouth that she has picked at. Pt states that she gets chemo and radiation therapy at [facility]. Pt denies CP, SOB, n/v/d, abdominal pain, chills , RUFFIN, dizziness, or dysuria. (Jerry Thomas) Past Medical History - Provider Review Nursing Documentation Reviewed: Yes - Infectious Disease Hx of Infectious Diseases: None - Tetanus Immunization Tetanus Immunization: Unknown - Past Medical History Past Medical History: Non-Contributing - Cardiac Hx Cardiac Disorders: Yes Hx Hypertension: Yes - Pulmonary Hx Respiratory Disorders: No - Neurological Hx Neurological Disorder: No - HEENT Hx HEENT Disorder: No - Renal Hx Renal Disorder: No - Endocrine/Metabolic Hx Endocrine Disorders: No - Hematological/Oncological Hx Blood Disorders: Yes Hx Cancer: Yes (Breast cancer) - Integumentary Hx Dermatological Disorder: No - Musculoskeletal/Rheumatological Hx Musculoskeletal Disorders: Yes Hx Falls: No Hx Osteoporosis: Yes Other/Comment: Bone CA - Gastrointestinal Hx Gastrointestinal Disorders: No - Genitourinary/Gynecological Hx Genitourinary Disorders: No - Psychiatric Hx Psychophysiologic Disorder: No Hx Substance Use: No (Denies.) - Surgical History Other/Comment: right hip surgery - Anesthesia Hx Anesthesia: Yes Hx Anesthesia Reactions: No - Suicidal Assessment Feels Threatened In Home Enviroment: No <Jerry Thomas - Last Filed: 06/15/17 18:08> Family/Social History - Physician Review Nursing Documentation Reviewed: Yes Family/Social History: Other (Non-contributory) Smoking Status: Never Smoked Hx Alcohol Use: No Amount per day: 3 Hx Substance Use: No (Denies.) Hx Substance Use Treatment: No <Jerry Thomas - Last Filed: 06/15/17 18:08> Allergies/Home Meds <Jerry Thomas - Last Filed: 06/15/17 18:08> <Ata Torres - Last Filed: 06/16/17 08:11> Allergies/Adverse Reactions: Allergies No Known Allergies Allergy (Verified 06/15/17 15:01) Home Medications: Home Meds Medication Instructions Recorded Confirmed Unobtainable 12/18/16 06/15/17 Review of Systems - Review of Systems Constitutional: Fevers. absent: Fatigue, Weight Change Eyes: Normal ENT: Normal Respiratory: Normal Cardiovascular: Normal Gastrointestinal: Normal Genitourinary Female: Normal Musculoskeletal: Myalgias (diffuse) Skin: Normal Neurological: Normal Endocrine: Normal Hemo/Lymphatic: Normal Psychiatric: Anxiety <Jani ThomasJerry - Last Filed: 06/15/17 18:08> Physical Exam Vital Signs Reviewed: Yes Temperature: Febrile Blood Pressure: Normal Pulse: Tachycardic Respiratory Rate: Tachypneic Appearance: Positive for: Uncomfortable Pain Distress: Severe Mental Status: Positive for: Alert and Oriented X 3 - Systems Exam Head: Present: Atraumatic, Normocephalic Extroacular Muscles: Present: EOMI Conjunctiva: Present: Normal Mouth: Present: Dry, Other (sore on right corner of mouth) Nose (External): Present: Abrasion Neck: Present: Normal Range of Motion Respiratory/Chest: Present: Clear to Auscultation. No: Respiratory Distress, Accessory Muscle Use, Wheezes, Rales, Rhonchi Cardiovascular: Present: Normal S1, S2, Tachycardic. No: Murmurs, Rub, Gallop Abdomen: Present: Tenderness. No: Distention, Peritoneal Signs, Rebound, Guarding Rectal: Present: Normal Rectal Tone Back: Present: Paraspinal Tenderness Upper Extremity: Present: Tenderness. No: Cyanosis, Edema Lower Extremity: Present: Tenderness. No: Edema Neurological: Present: GCS=15, CN II-XII Intact Skin: Present: Warm, Dry, Normal Color Psychiatric: Present: Alert, Oriented x 3, Anxious <Jani ThomasJerry - Last Filed: 06/15/17 18:08> Vital Signs Temp Pulse Resp BP Pulse Ox 06/15/17 18:45 103 H 16 141/76 97 06/15/17 18:30 100 H 16 156/90 H 97 06/15/17 18:28 107 H 26 H 154/84 H 06/15/17 18:15 98.7 F 100 H 17 149/79 97 06/15/17 18:06 146/75 06/15/17 17:53 100 H 17 145/77 96 06/15/17 17:38 101 H 18 148/88 98 06/15/17 17:08 103 H 18 153/87 H 98 06/15/17 16:30 105 H 18 145/85 96 06/15/17 16:12 101.2 F H 06/15/17 15:54 101.2 F H 06/15/17 15:11 100.2 F H 98 H 16 166/86 H 99 Medical Decision Making <Jerry Thomas - Last Filed: 06/15/17 18:08> Reassessment Condition: Improving,but remains with symptoms - Critical Care Critical Care Minutes: 60 minutes - RAD Interpretation Director Of Sports Medicine: Radiologist - EKG Interpretation Interpreted by ED Physician: Yes Type: 12 lead EKG Comparison: Similar to previous EKG <Ata Torres - Last Filed: 06/16/17 08:11> ED Course and Treatment: 06/15/17 15:44 Assessment: 61 yo F presents to ED with diffuse body aches. Plan: - CBC - CMP - Blood and urine cultures - Cardiac Iso - VBG shock panel - CXR - EKG - UA - 1L NS bolus - Morphine - Xanax - Reassess and Disposition 06/15/17 15:51 CXR as read by radiologist showed moderate vascular congestion. EKG showed sinus tachycardia, rate 111. 06/15/17 16:03 Rectal temperature 101.2 F. Tylenol ordered. 06/15/17 16:15 On reassessment, pt states that pain is improved after morphine. Patient states that her neck hurts and is unable to rotate it and localizes pain to her right groin as well. However, overall pt states that pain is still all over. - Morphine - CT neck, abdomen, pelvis, lower extremity 06/15/17 16:20 Code sepsis called at 16:21. (Febrile, tachycardiac, Lactate 4.8) - IVF bolus - IV abx 06/15/17 17:04 Troponin I 1.53, repeat EKG ordered. Unchanged from initial EKG. Spoke to Dr. Ratliff, agrees with plan and accepts patient under hospitalist service. 06/15/17 18:08 Pt complaining of urine incontinence. Miller catheter ordered. (MarthaJerry) 06/15/17 16:39 Patient seen and evaluated with medical management specialist. I evaluated patient upon arrival to room/stretcher. Patient on exam is alert, oriented, states that she has "pain all over". She states that "it's everywhere" and "it's been like that for a few days. Denies headache, denies cough. She denies abdominal pain but reports decreased appetite. States that she has been urinating frequently. Denies sore throat or difficulty swallowing. States she has some pain in her neck over the past 3-4 days. Also states she has had right "groin" pain for "months". States she has been able to ambulate and bear weight. On exam she is febrile, tachycardic. Denies chest pain or sob. Calves nontender. There is paraspinal pain to her neck but no soft tissue swelling or fluctuant masses, she is able to rotate and flex/extend at neck. Patient with elevated WBC. She states that she is currently getting chemotherapy and radiation "at [facility]". Lactate elevated. Blood pressure stable at this time and patient remains alert and oriented. Iv fluids ordered and iv antibiotics ordered. With serial exams, remains neuro intact. with no weakness noted to arms and legs , no saddle anesthesia. 06/15/17 17:08 Patient with elevated troponin. She ADAMANTLY denies any chest pain or shortness of breath. Denies any recent chest pain or shortness of breath. Denies any leg swelling or acute edema. EKG in Emergency department repeated, at 15:06 sinus tachycardia with anterior infarct, age undetermined, similar when compared to EKG from past Emergency department visits. Again, she denies chest pain or sob. She is moving her right hip freely on re-exam. Doubt septic joint based on this re-exam. No drooling or stridor noted. No saddle anesthesia or focal motor or sensory deficits. 06/15/17 17:55 Patient on re-exam appears more comfortable. Neck pain persistent, worse when turning to left but she is nontoxic appearing, neuro intact, is pleasant and appropriate with questions and history. Abdomen remains without any rebound or guarding. Abnormal labs reviewed with patient in laymen's terms. Mild systolic heart murmur noted on my exam, but heart rate now 101, blood pressure stable. She is alert and appropriate with no lethargy or confusion noted. Chest X-ray suggestive of pulmonary vascular congestion. As BNP elevated cannot exclude cardiac component of symptoms, including ddx of chf, endocarditis, pericarditis. Patient at risk for pulmonary embolism but no chest pain, no back pain, not hypoxic, no acute leg edema or pain. Patient's EKG and labs and troponin reviewed with Dr. Perry, covering for on- call cardiology, we will administer Lovenox to patient, I discussed risks/ benefits with patient. Fluid will be administered with close monitoring of symptoms as patient with elevated BNP, congestion noted on cxr. Patient ordered CT angio of chest, while at CT scan she became aggravated "cat scans are taking too long" and refused any further imaging or completion of ct hip or ct angio. Case discussed with Dr. William Ratliff, accepts admission to hospitalist service. Will request ICU consultation given fever, sepsis, elevated troponin. 06/15/17 18:16 Repeat neuro intact. Patient with no focal weakness or acute sensory deficits. Rectal tone is intact. No saddle anesthesia. Awaiting CT results. Currently no midline back pain. 06/15/17 18:42 ddx sepsis, pneumonia, chf, myocardial infarction, PE, pericarditis, endocarditis, doubt septic joint as able to range hip and neck with minimal discomfort on re-exam, doubt epidural abscess at this time given improvement in pain although requires serial exams and monitoring of symptoms, possible metastatic bony disease. She is not toxic appearing on re-exam and has stable bp , conversive on re- exam. Negative Brudzinskis and Kernigs sign. Patient at this time refusing further imaging studies, indications for studies and risks of not obtaining imaging studies reviewed. She does not want MRI although I have stated to her that if symptoms worsen, persist or change that this may be indicated to assess neck pain and hip pain pending serial exams and re-evaluation. 06/15/17 19:[address] neck and chest pending. CT abdomen reading reviewed. She has no upper abdominal pain with serial exams. No upper/mid back pain. CT readings endorsed to admitting team, I discussed sign out of CT studies to Dr. Marcos/ICU team for follow-up. (Ata Torres) - Lab Interpretations Lab Results: 06/15/17 15:58 06/15/17 15:58 Lab Results 06/15/17 16:30: Alcohol, Quantitative < 10 06/15/17 16:30: TSH 3rd Generation 0.85 06/15/17 16:30: Triglycerides 131, Cholesterol 164, LDL Cholesterol Direct 81, HDL Cholesterol 40 06/15/17 16:30: NT-Pro-B Natriuret Pep 02906 H 06/15/17 15:58: Influenza Typ A,B (EIA) Negative for flu a/b 06/15/17 15:58: pO2 41, VBG pH 7.42, VBG pCO2 39.0 L, VBG HCO3 25.3, VBG Total CO2 26.5, VBG O2 Sat (Calc) 81.6 H, VBG Base Excess 0.8, VBG Potassium 3.7, Sodium 132.0, Chloride 96.0 L, Glucose 127 H, Lactate 4.8 H*, FiO2 21.0, Venous Blood Potassium 3.7 06/15/17 15:58: Sodium 134, Chloride 95 L, Potassium 3.6, Carbon Dioxide 22, Anion Gap 20, BUN 16, Creatinine 0.9, Est GFR ( Amer) > 60, Est GFR (Non- Af Amer) > 60, Random Glucose 124 H, Calcium 10.3, Phosphorus 2.8, Magnesium 1.7 , Total Bilirubin 1.6 H, AST 76 H D, ALT 24, Alkaline Phosphatase 87, Lactate Dehydrogenase 828 H, Total Creatine Kinase 253 H, CK-MB (CK-2) 4.5 H, CK-MB (CK- 2) % Cancelled, Troponin I 1.53 H* D, Total Protein 8.7 H, Albumin 4.3, Globulin 4.4, Albumin/Globulin Ratio 1.0 L 06/15/17 15:58: Urine Color Yellow, Urine Appearance Clear, Urine pH 6.0, Ur Specific [place] 1.020, Urine Protein 30 H, Urine Glucose (UA) Negative, Urine Ketones Negative, Urine Blood Moderate H, Urine Nitrate Negative, Urine Bilirubin Negative, Urine Urobilinogen 0.2, Ur Leukocyte Esterase Negative, Urine RBC 1 - 3, Urine WBC 0 - 2, Ur Epithelial Cells 0 - 2, Amorphous Sediment Few, Urine Bacteria Neg 06/15/17 15:58: WBC 25.6 H* D, RBC 4.47, Hgb 12.3 D, Hct 38.2, MCV 85.5 D, MCH 27.5, MCHC 32.2, RDW 14.9 H, Plt Count 150, MPV 9.3, Gran % 87.6 H, Lymph % (Auto) 4.1 L, [place] % (Auto) 8.2 H, Eos % (Auto) 0.0 L, Baso % (Auto) 0.1, Gran # 22.45 H, Lymph # (Auto) 1.1 L, [place] # (Auto) 2.1 H, Eos # (Auto) 0.0, Baso # ( Auto) 0.02, Neutrophils % (Manual) 89 H, Band Neutrophils % 3 H, Lymphocytes % ( Manual) 5 L, Monocytes % (Manual) 3, Platelet Evaluation Normal, Anisocytosis ( manual) Slight 06/15/17 14:20: PT 13.0 H, INR 1.14 H, APTT 29.7 - RAD Interpretation Radiology Orders: 06/15/17 15:30 CHEST PORTABLE [RAD] Stat 06/15/17 16:19 ABD & PELVIS W/O PO OR IV CONT [CT] Stat 06/15/17 16:20 EXT LOWER W/O CONTRAST RIGHT [CT] Stat 06/15/17 16:23 CERVICAL SPINE W/O CONTRAST [CT] Stat 06/15/17 17:17 ANGIO CHEST PE PROTOCOL [CT] Stat 06/15/17 17:56 CHEST W/O & HIGH RES CHEST [CT] Urgent - Medication Orders Current Medication Orders: Acetaminophen (Tylenol 325mg Tab) 650 mg PO Q8H PRN PRN Reason: Fever >100.4 F Last Admin: 06/15/17 23:53 Dose: 650 mg MAR Pain/Vitals Document 06/15/17 23:53 [facility] (Rec: 06/15/17 23:53 [facility] [place] Pain Reassessment Is This A Pain ReAssessment? No Sleep Is patient sleeping during reassessment? No Presence of Pain Presence of Pain Yes Pain Scale Used Pain Scale Used Numeric Vitals Temperature (97.6 F-99.6 F) 101.7 F Temperature Source Oral Re-Assess: MAR Pain/Vitals Document 06/16/17 00:53 KA (Rec: 06/16/17 02:[address]) Pain Reassessment Is This A Pain ReAssessment? No Sleep Is patient sleeping during reassessment? No Presence of Pain Presence of Pain Yes Vitals Temperature (97.6 F-99.6 F) 101 F Aspirin (Aspirin Chewable) 81 mg PO DAILY OLGA Enoxaparin Sodium (Lovenox) 70 mg SC Q12H OLGA PRN Reason: Protocol Last Admin: 06/16/17 06:26 Dose: 70 mg Subcutaneous Administrations Document 06/16/17 06:26 KA (Rec: 06/16/17 06:[address]) Injection Site MAR Injection Site Right Abdomen Charges for Administration # of Subcutaneous Administrations 1 Gabapentin (Neurontin) 300 mg PO TID OLGA PRN Reason: Protocol Vancomycin HCl (Vancomycin 1gm) 1 gm in 250 mls @ 167 mls/hr IVPB Q12 OLGA PRN Reason: Protocol Doxycycline Hyclate 100 mg/ (Sodium Chloride) 100 mls @ 100 mls/hr IVPB Q12 OLGA PRN Reason: Protocol Meropenem/Sodium Chloride (Meropenem 1g/Ns 100ml Ivpb) 1 gm in 100 mls @ 100 mls/hr IVPB Q12H [facility] Stop: 06/23/17 07:31 Lorazepam (Ativan) 0.5 mg IVP Q6H PRN; Protocol PRN Reason: Anxiety Last Admin: 06/16/17 02:46 Dose: 0.5 mg IVP Administration Document 06/16/17 02:46 KA (Rec: 06/16/17 02:[address]) Charges for Administration # of IVP Administrations 1 Behavioural Document 06/16/17 02:46 [facility] (Rec: 06/16/17 02:[address]) Maintenance Maintenance Dose No Nonmedicinal Nonmedicinal Interventions Redirect Behavior Behavior for Medication: Anxiety Re-Assess: Reassess Psych Meds Document 06/16/17 03:16 KA (Rec: 06/16/17 05:[address]) Reassess Psych Med Effective Morphine Sulfate (Morphine) 1 mg IVP Q4H PRN PRN Reason: Pain, severe (8-10) Last Admin: 06/16/17 06:25 Dose: 1 mg [facility] Pain Assessment Document 06/16/17 06:25 KA (Rec: 06/16/17 06:26 [id number]) Pain Reassessment Is this a pain reassessment? No Sleep Is patient sleeping during reassessment? No Presence of Pain Presence of Pain Yes Pain Scale Used Pain Scale Used Numeric Location Left, Right or Bilateral Bilateral Pain Location Body Site Neck Back Lumbar Description Description Constant Intensity of Pain at present 10 Pain Behavior Moaning Withdrawal from Touch Screaming Aggravating Factors Changing Position Alleviating Factors/Management Medication Techniques Alleviating Factors Medication IVP Administration Document 06/16/17 06:25 [facility] (Rec: 06/16/17 06:26 [id number]) Charges for Administration # of IVP Administrations 1 Re-Assess: [facility] Pain Assessment Document 06/16/17 07:25 (Rec: 06/16/17 08:03 [id number]) Pain Reassessment Is this a pain reassessment? Yes Sleep Is patient sleeping during reassessment? No Presence of Pain Presence of Pain Yes Oseltamivir Phosphate (Tamiflu) 30 mg PO BID OLGA PRN Reason: Protocol Stop: 06/21/17 06:49 Discontinued Medications Acetaminophen (Tylenol 325mg Tab) 650 mg PO ONCE STA Stop: 06/15/17 16:01 Last Admin: 06/15/17 16:12 Dose: 650 mg [facility] Pain/Vitals Document 06/15/17 16:12 [facility] (Rec: 06/15/17 16:12 [id number]) Vitals Temperature (97.6 F-99.6 F) 101.2 F Temperature Source Rectal Alprazolam (Xanax) 0.25 mg PO STAT STA Stop: 06/15/17 15:41 Last Admin: 06/15/17 16:04 Dose: 0.25 mg Re-Assess: Reassess Psych Meds Document 06/15/17 17:04 LC (Rec: 06/16/17 08:02 [id number]) Reassess Psych Med Ineffective-LIP notifed Alprazolam (Xanax) 0.25 mg PO TID PRN; Protocol PRN Reason: Anxiety Stop: 06/23/17 10:01 Last Admin: 06/15/17 21:19 Dose: 0.25 mg Behavioural Document 06/15/17 21:19 [facility] (Rec: 06/15/17 21:[address]) Maintenance Maintenance Dose No Nonmedicinal Nonmedicinal Interventions Redirect Behavior Behavior for Medication: Anxiety Re-Assess: Reassess Psych Meds Document 06/15/17 22:19 [facility] (Rec: 06/15/17 23:[address]) Reassess Psych Med Ineffective-LIP notifed Aspirin (Aspirin Chewable) 81 mg PO STAT STA Stop: 06/15/17 16:49 Last Admin: 06/15/17 17:01 Dose: 81 mg Enoxaparin Sodium (Lovenox) 70 mg SC STAT STA PRN Reason: Protocol Stop: 06/15/17 17:22 Last Admin: 06/15/17 18:06 Dose: 70 mg Subcutaneous Administrations Document 06/15/17 18:06 [facility] (Rec: 06/15/17 18:06 [id number]) Injection Site MAR Injection Site Right Arm Charges for Administration # of Subcutaneous Administrations 1 Enoxaparin Sodium (Lovenox) 70 mg SC Q24H OLGA PRN Reason: Protocol Furosemide (Lasix) 40 mg IVP Q12 OLGA Last Admin: 06/15/17 18:06 Dose: 40 mg MAR Blood Pressure Document 06/15/17 18:06 [facility] (Rec: 06/15/17 18:07 [id number]) Blood Pressure Blood Pressure (100/60-150/90 mm Hg) 146/75 IVP Administration Document 06/15/17 18:06 [facility] (Rec: 06/15/17 18:07 [id number]) Charges for Administration # of IVP Administrations 1 Sodium Chloride (Sodium Chloride 0.9%) 1,000 mls @ 1,000 mls/hr IV .Q1H STA Stop: 06/15/17 16:39 Last Admin: 06/15/17 15:45 Dose: 1,000 mls/hr eMAR Start Stop Document 06/15/17 15:45 [facility] (Rec: 06/15/17 16:04 [id number]) Intravenous Solution Start Date 06/15/17 Start Time 15:45 End Date 06/15/17 End time 16:45 Total Infusion Time 60 Lactated Ringer's 2,080 ml/ IV (SUPPLIES) 2,080 mls @ 4,164 mls/hr IV ONCE ONE PRN Reason: 60 ML/KG/HR Stop: 06/15/17 16:22 Last Admin: 06/15/17 16:31 Dose: 4,164 mls/hr eMAR Start Stop Document 06/15/17 16:31 [facility] ([facility] 06/15/17 16[id number] Intravenous Solution Start Date 06/15/17 Start Time 16:31 End Date 06/15/17 End time 16:40 Total Infusion Time 9 Piperacillin Sod/Tazobactam Sod (Zosyn 4.5 Gm In Ns 100ml) 4.5 gm in 100 mls @ 200 mls/hr IVPB STAT STA PRN Reason: Protocol Stop: 06/15/17 16:53 Last Admin: 06/15/17 16:50 Dose: 200 mls/hr eMAR Start Stop Document 06/15/17 16:50 [facility] (Rec: 06/15/17 16:[id number] Intravenous Solution Start Date 06/15/17 Start Time 16:50 End Date 06/15/17 End time 17:20 Total Infusion Time 30 Vancomycin HCl (Vancomycin 1gm) 1 gm in 250 mls @ 167 mls/hr IVPB STAT STA PRN Reason: Protocol Stop: 06/15/17 18:03 Last Admin: 06/15/17 17:50 Dose: 167 mls/hr eMAR Start Stop Document 06/15/17 17:50 [facility] (Rec: 06/15/17 17:54 [id number] Intravenous Solution Start Date 06/15/17 Start Time 17:50 End Date 06/15/17 End time 19:20 Total Infusion Time 90 Vancomycin HCl (Vancomycin 1gm) 1 gm in 250 mls @ 167 mls/hr IVPB DAILY OLGA Meropenem 1 gm/ Dextrose 100 mls @ 100 mls/hr IVPB Q12H OLGA PRN Reason: Protocol Stop: 06/23/17 07:01 Lorazepam (Ativan) 0.25 mg IVP ONCE ONE PRN Reason: Protocol Stop: 06/15/17 22:36 Last Admin: 06/15/17 22:48 Dose: 0.25 mg IVP Administration Document 06/15/17 22:48 K[facility] (Rec: 06/15/17 22:48 [facility] [place] [facility] [place] Charges for Administration # of IVP Administrations 1 Behavioural Document 06/15/17 22:48 KAC (Rec: 06/15/17 22:48 [facility] [place] [facility] [place] Maintenance Maintenance Dose No Nonmedicinal Nonmedicinal Interventions Redirect Behavior Behavior for Medication: Anxiety Re-Assess: Reassess Psych Meds Document 06/15/17 23:18 LC (Rec: 06/16/17 07:10 LC [id number]) Reassess Psych Med Effective Morphine Sulfate (Morphine) 2 mg IVP STAT STA Stop: 06/15/17 15:41 Last Admin: 06/15/17 16:03 Dose: 2 mg MAR Pain Assessment Document 06/15/17 16:03 [facility] (Rec: 06/15/17 16:03 [id number]) Pain Reassessment Is this a pain reassessment? Yes Presence of Pain Presence of Pain Yes Pain Scale Used Pain Scale Used Numeric Location Pain Location Body Site Generalized Description Description Constant Intensity of Pain at present 10 IVP Administration Document 06/15/17 16:03 [facility]ONE (Rec: 06/15/17 16:03 [id number]) Charges for Administration # of IVP Administrations 1 Morphine Sulfate (Morphine) 2 mg IVP STAT STA Stop: 06/15/17 16:19 Last Admin: 06/15/17 16:32 Dose: 2 mg MAR Pain Assessment Document 06/15/17 16:32 [facility] (Rec: 06/15/17 16:32 [id number]) Pain Reassessment Is this a pain reassessment? Yes Presence of Pain Presence of Pain Yes Description Description Constant Intensity of Pain at present 10 IVP Administration Document 06/15/17 16:32 [facility] (Rec: 06/15/17 16:32 [id number]) Charges for Administration # of IVP Administrations 1 Morphine Sulfate (Morphine) 2 mg IVP ONCE ONE Stop: 06/15/17 22:36 Last Admin: 06/15/17 22:47 Dose: 2 mg HOLLIE Pain Assessment Document 06/15/17 22:47 [facility] (Rec: 06/15/17 22:[address]) Pain Reassessment Is this a pain reassessment? Yes Sleep Is patient sleeping during reassessment? No Presence of Pain Presence of Pain Yes Pain Scale Used Pain Scale Used Numeric Location Left, Right or Bilateral Bilateral Pain Location Body Site Neck Back Lumbar Hip Description Description Constant Intensity of Pain at present 10 Pain Behavior Moaning Guarding Irritability Withdrawal from Touch Restlessness Screaming Thrashing Alleviating Factors/Management Medication Techniques Alleviating Factors Medication IVP Administration Document 06/15/17 22:47 [facility] (Rec: 06/15/17 22:[address]) Charges for Administration # of IVP Administrations 1 Oxycodone HCl (Oxycodone Immediate Release Tab) 30 mg PO Q6H PRN PRN Reason: Pain, moderate (4-7) Oxycodone HCl (Oxycodone Immediate Release Tab) 30 mg PO Q6H PRN PRN Reason: Pain, severe (8-10) Oxycodone HCl (Oxycodone Immediate Release Tab) 30 mg PO Q6H PRN PRN Reason: Pain, moderate (4-7) Last Admin: 06/15/17 20:12 Dose: 30 mg HOLLIE Pain Assessment Document 06/15/17 20:12 [facility] (Rec: 06/15/17 20:12 [facility] [place] [facility] [place] Pain Reassessment Is this a pain reassessment? No Sleep Is patient sleeping during reassessment? No Presence of Pain Presence of Pain Yes Pain Scale Used Pain Scale Used Numeric Location Left, Right or Bilateral Right Pain Location Body Site Generalized Description Description Constant Intensity of Pain at present 10 Re-Assess: HOLLIE Pain Assessment Document 06/15/17 21:12 [facility] (Rec: 06/15/17 21:[address]) Pain Reassessment Is this a pain reassessment? Yes Sleep Is patient sleeping during reassessment? No Presence of Pain Presence of Pain Yes Pain Scale Used Pain Scale Used Numeric Location Pain Location Body Site Neck Lumbar Sacrum Hip Generalized Description Description Constant Intensity of Pain at present 10 Pain Behavior Moaning Crying Irritability Screaming Aggravating Factors Changing Position Standing Sitting Alleviating Factors/Management Medication Techniques Alleviating Factors Medication Pain not relieved and LIP/MD was Yes notified Disposition/Present on Arrival - Present on Arrival History of DVT/PE: No History of Uncontrolled Diabetes: No Urinary Catheter: No History of Decub. Ulcer: No History Surgical Site Infection Following: None <Jerry Thomas - Last Filed: 06/15/17 18:08> - Present on Arrival Any Indicators Present on Arrival: No - Disposition Have Diagnosis and Disposition been Completed?: Yes Disposition Time: 17:30 Patient Plan: Admission, ICU <Ata Torres - Last Filed: 06/16/17 08:11> - Disposition Diagnosis: Fever, Sepsis, Hip pain, Neck pain, Elevated troponin, Leukocytosis Disposition: HOSPITALIZED Patient Problems: Current Active Problems Problem Status Onset Elevated troponin Acute Fever Acute Hip pain Acute Leukocytosis Acute Neck pain Acute Sepsis Acute Condition: CRITICAL
[2017-06-15] MEDS ORDERED: Sodium Chloride 0.9% 1,000 ML IV STA (15:40)
[2017-06-15] MEDS ORDERED: Morphine 2 mg/ml ISec IVP STA ×2 (15:40→16:18)
--- NOTE | 2017-06-15 15:51 | RAD ---
HISTORY: chest pain COMPARISON: 12/18/2016 FINDINGS: LUNGS: No active pulmonary disease. PLEURA: No significant pleural effusion identified, no pneumothorax apparent. CARDIOVASCULAR: There is moderate cardiomegaly and moderate vascular congestion OSSEOUS STRUCTURES: No significant abnormalities. VISUALIZED UPPER ABDOMEN: Normal. OTHER FINDINGS: None. IMPRESSION: Moderate vascular congestion
[2017-06-15 16:16] LABS: VENOUS BLOOD GAS BASE EXCESS 0.8 mmol/L (0.0-2.0); VENOUS BLOOD GAS PO2 41 mm/Hg (30-55); VENOUS BLOOD PH 7.42 (7.32-7.43)
[2017-06-15 16:20] LABS: BASO # 0.02 K/mm3 (0.0-2.0); BASO % 0.1 % (0.0-3.0); GRAN # 22.45 (1.4-6.5); GRAN % 87.6 % (50.0-68.0); HEMOGLOBIN 12.3 g/dL (12.0-16.0); LYMPH # 1.1 (1.2-3.4); LYMPH % 4.1 % (22.0-35.0); MEAN CELL VOLUME 85.5 fl (80.0-105.0); MEAN CORPUSCULAR HEMOGLOBIN 27.5 pg (25.0-35.0); MEAN CORPUSCULAR HGB CONC 32.2 g/dl (31.0-37.0); MEAN PLATELET VOLUME 9.3 fl (7.0-11.0); MONO # 2.1 (0.1-0.6); MONO % 8.2 % (1.0-6.0); PLATELET COUNT 150 10^3/uL (120.0-450.0); RBC 4.47 10^6/uL (3.5-6.1); RED CELL DISTRIBUTION WIDTH 14.9 % (11.5-14.5)
[2017-06-15 16:21] LABS: URINE BILIRUBIN NEGATIVE (NEGATIVE); URINE BLOOD MODERATE (NEGATIVE); URINE GLUCOSE (UA) NEGATIVE (NEGATIVE); URINE LEUKOCYTE ESTERASE NEGATIVE Leu/uL (NEGATIVE); URINE PROTEIN 30 mg/dL (<30 mg/dL); URINE UROBILINOGEN 0.2 E.U./dL (<1 E.U./dL)
[2017-06-15 16:24] LABS: WHITE BLOOD COUNT 25.6 10^3/ul (4.5-11.0)
[2017-06-15] MEDS ORDERED: Piperacill/Tazo 4.5gm in NS 4.5 GM/100 ML BAG IVPB STA (16:24)
[2017-06-15 16:25] LABS: URINE APPEARANCE CLEAR (CLEAR); URINE COLOR YELLOW (YELLOW)
[2017-06-15 16:30] LABS: ALBUMIN 4.3 g/dL (3.0-4.8); ALT/SGPT 24 U/L (7-56); AST/SGOT 76 U/L (14-36); BLOOD UREA NITROGEN 16 mg/dL (7-21); CALCIUM 10.3 mg/dL (8.4-10.5); GFR AFRICAN-AMERICAN > 60; GFR NON-AFRICAN AMERICAN > 60
[2017-06-15] MEDS ORDERED: Vancomycin 1gm in NS 250ml 1 GM/250 ML BAG IVPB STA (16:34)
[2017-06-15 16:43] LABS: URINE AMORPHOUS SEDIMENT FEW; URINE BACTERIA NEG (NEG); URINE EPITHELIAL CELLS 0 - 2 /hpf (0-5); URINE WBC 0 - 2 /hpf (0-6)
[2017-06-15 16:47] LABS: CK-MB 4.5 ng/mL (0.0-3.6); TROPONIN I 1.53 ng/mL
[2017-06-15 16:50] LABS: INR 1.14 (0.93-1.08); PARTIAL THROMBOPLASTIN TIME 29.7 Seconds (25.1-36.5)
[2017-06-15] MEDS ORDERED: Enoxaparin 80 mg Syringe SC STA (17:21)
[2017-06-15 17:27] LABS: BAND 3 % (0-2); LYMPHOCYTE 5 % (22.0-35.0); MONOCYTE 3 % (1.0-6.0); NEUTROPHIL 89 % (50.0-70.0); PLATELET ESTIMATE NORMAL (NORMAL)
[2017-06-15 17:28] LABS: ANISOCYTOSIS SLIGHT
--- NOTE | 2017-06-15 17:43 | CP.PCM.HP ---
<Miranda Crum - Last Filed: 06/15/17 18:32> History of Present Illness - History of Present Illness History of Present Illness: CC: pain all over, hip pain x 2 days HPI 61F with pmh of stage four breast cancer with metastasis to the bone, htn presents with body ache that began yesterday. Patient denies sick contacts or feeling like this before. Patient denies new surgeries. Patient states the most amount of pain is in her right hip and groin (Patient points to right anterior superior ischial spine area, and her anterior thigh). Patient also admits to decreased range of motion of her neck. At home, patient ambulates with a cane but does not often leave her home. Patient states she has difficulty remembering and struggled to recall some things during the interview. Patient admits to fever, chills, nausea, vomiting, abdominal pain, dysuria, hematuria, diarrhea. PMH: HTN, Stage 4 metastatic breast cancer (invasive ductal carcinoma) to bone, osteoporosis PSH: right hip surgery ("years ago") last chemo: 1 week ago. gets chemo at [facility] and does not receive radiation Social: - lives alone, (AIDS, patient did not test positive when tested last) - denies smoking, EtOH but states she is a former recreational drug abuser ( long ago) Allergies: NKDA [facility] Present on Admission - Present on Admission Any Indicators Present on Admission: No History of DVT/PE: No History of Uncontrolled Diabetes: No Urinary Catheter: No Decubitus Ulcer Present: No Past Patient History - Infectious Disease Hx of Infectious Diseases: None - Tetanus Immunizations Tetanus Immunization: Unknown - Past Social History Smoking Status: Never Smoked - CARDIAC Hx Cardiac Disorders: Yes Hx Hypertension: Yes - PULMONARY Hx Respiratory Disorders: No - NEUROLOGICAL Hx Neurological Disorder: No - HEENT Hx HEENT Problems: No - RENAL Hx Chronic Kidney Disease: No - ENDOCRINE/METABOLIC Hx Endocrine Disorders: No - HEMATOLOGICAL/ONCOLOGICAL Hx Blood Disorders: Yes Hx Cancer: Yes (Breast cancer) - INTEGUMENTARY Hx Dermatological Problems: No - MUSCULOSKELETAL/RHEUMATOLOGICAL Hx Musculoskeletal Disorders: Yes Hx Falls: No Hx Osteoporosis: Yes Other/Comment: Bone CA - GASTROINTESTINAL Hx Gastrointestinal Disorders: No - GENITOURINARY/GYNECOLOGICAL Hx Genitourinary Disorders: No - PSYCHIATRIC Hx Psychophysiologic Disorder: No Hx Substance Use: No (Denies.) - SURGICAL HISTORY Other/Comment: right hip surgery - ANESTHESIA Hx Anesthesia: Yes Hx Anesthesia Reactions: No Meds Allergies/Adverse Reactions: Allergies Allergy/AdvReac Type Severity Reaction Status Date / Time No Known Allergies Allergy Verified 06/15/17 15:01 Physical Exam - Constitutional Appears: Non-toxic, No Acute Distress - Head Exam Head Exam: ATRAUMATIC, NORMAL INSPECTION, NORMOCEPHALIC - Eye Exam Eye Exam: EOMI, Normal appearance Pupil Exam: PERRL - ENT Exam ENT Exam: Mucous Membranes Moist - Neck Exam Neck exam: Negative for: Full Rom (patient has decreased range of motion of her neck), Thyromegaly - Respiratory Exam Respiratory Exam: Clear to Auscultation Bilateral, NORMAL BREATHING PATTERN - Cardiovascular Exam Cardiovascular Exam: REGULAR RHYTHM, +S1, +S2 - GI/Abdominal Exam GI & Abdominal Exam: Normal Bowel Sounds, Soft. absent: Firm, Guarding - Extremities Exam Extremities exam: Positive for: full ROM. Negative for: pedal edema Additional comments: patient did not move her right leg due to pain located right anterior medial thigh two inches below inguinal region and pain on palpation of right anterior inferior iliac spine upon moving patient from stretcher back to bed, patient was very sensitive about her right hip - Back Exam Back exam: FULL ROM, NORMAL INSPECTION - Neurological Exam Neurological exam: Alert, CN II-XII Intact, Normal Gait, Oriented x3 - Psychiatric Exam Psychiatric exam: Normal Affect, Normal Mood - Skin Skin Exam: Dry, Normal Color, Warm Additional comments: no erythema or induration in hip or thigh area. Results - Vital Signs Recent Vital Signs: Last Vital Signs Temp 101.2 F H 06/15/17 16:12 Pulse 103 H 06/15/17 17:08 Resp 18 06/15/17 17:08 BP 153/87 H 06/15/17 17:08 Pulse Ox 98 06/15/17 17:08 - Labs Result Diagrams: 06/15/17 15:58 06/15/17 15:58 Labs: Laboratory Results - last 24 hr 06/15/17 06/15/17 06/15/17 14:20 15:58 15:58 WBC 25.6 H* D RBC 4.47 Hgb 12.3 D Hct 38.2 MCV 85.5 D MCH 27.5 MCHC 32.2 RDW 14.9 H Plt Count 150 MPV 9.3 Gran % 87.6 H Lymph % (Auto) 4.1 L [place] % (Auto) 8.2 H Eos % (Auto) 0.0 L Baso % (Auto) 0.1 Gran # 22.45 H Lymph # (Auto) 1.1 L [place] # (Auto) 2.1 H Eos # (Auto) 0.0 Baso # (Auto) 0.02 Neutrophils % (Manual) 89 H Band Neutrophils % 3 H Lymphocytes % (Manual) 5 L Monocytes % (Manual) 3 Platelet Evaluation Normal Anisocytosis (manual) Slight PT 13.0 H INR 1.14 H APTT 29.7 pO2 VBG pH VBG pCO2 VBG HCO3 VBG Total CO2 VBG O2 Sat (Calc) VBG Base Excess VBG Potassium Sodium Chloride Glucose Lactate FiO2 Potassium Carbon Dioxide Anion Gap BUN Creatinine Est GFR ( Amer) Est GFR (Non-Af Amer) Random Glucose Calcium Phosphorus Magnesium Total Bilirubin AST ALT Alkaline Phosphatase Lactate Dehydrogenase Total Creatine Kinase CK-MB (CK-2) CK-MB (CK-2) % Troponin I NT-Pro-B Natriuret Pep Total Protein Albumin Globulin Albumin/Globulin Ratio Venous Blood Potassium Urine Color Yellow Urine Appearance Clear Urine pH 6.0 Ur Specific [place] 1.020 Urine Protein 30 H Urine Glucose (UA) Negative Urine Ketones Negative Urine Blood Moderate H Urine Nitrate Negative Urine Bilirubin Negative Urine Urobilinogen 0.2 Ur Leukocyte Esterase Negative Urine RBC 1 - 3 Urine WBC 0 - 2 Ur Epithelial Cells 0 - 2 Amorphous Sediment Few Urine Bacteria Neg Influenza Typ A,B (EIA) 06/15/17 06/15/17 06/15/17 15:58 15:58 15:58 WBC RBC Hgb Hct MCV MCH MCHC RDW Plt Count MPV Gran % Lymph % (Auto) [place] % (Auto) Eos % (Auto) Baso % (Auto) Gran # Lymph # (Auto) [place] # (Auto) Eos # (Auto) Baso # (Auto) Neutrophils % (Manual) Band Neutrophils % Lymphocytes % (Manual) Monocytes % (Manual) Platelet Evaluation Anisocytosis (manual) PT INR APTT pO2 41 VBG pH 7.42 VBG pCO2 39.0 L VBG HCO3 25.3 VBG Total CO2 26.5 VBG O2 Sat (Calc) 81.6 H VBG Base Excess 0.8 VBG Potassium 3.7 Sodium 134 132.0 Chloride 95 L 96.0 L Glucose 127 H Lactate 4.8 H* FiO2 21.0 Potassium 3.6 Carbon Dioxide 22 Anion Gap 20 BUN 16 Creatinine 0.9 Est GFR ( Amer) > 60 Est GFR (Non-Af Amer) > 60 Random Glucose 124 H Calcium 10.3 Phosphorus 2.8 Magnesium 1.7 Total Bilirubin 1.6 H AST 76 H D ALT 24 Alkaline Phosphatase 87 Lactate Dehydrogenase 828 H Total Creatine Kinase 253 H CK-MB (CK-2) 4.5 H CK-MB (CK-2) % Cancelled Troponin I 1.53 H* D NT-Pro-B Natriuret Pep Total Protein 8.7 H Albumin 4.3 Globulin 4.4 Albumin/Globulin Ratio 1.0 L Venous Blood Potassium 3.7 Urine Color Urine Appearance Urine pH Ur Specific [place] Urine Protein Urine Glucose (UA) Urine Ketones Urine Blood Urine Nitrate Urine Bilirubin Urine Urobilinogen Ur Leukocyte Esterase Urine RBC Urine WBC Ur Epithelial Cells Amorphous Sediment Urine Bacteria Influenza Typ A,B (EIA) Negative for flu a/b 06/15/17 16:30 WBC RBC Hgb Hct MCV MCH MCHC RDW Plt Count MPV Gran % Lymph % (Auto) [place] % (Auto) Eos % (Auto) Baso % (Auto) Gran # Lymph # (Auto) [place] # (Auto) Eos # (Auto) Baso # (Auto) Neutrophils % (Manual) Band Neutrophils % Lymphocytes % (Manual) Monocytes % (Manual) Platelet Evaluation Anisocytosis (manual) PT INR APTT pO2 VBG pH VBG pCO2 VBG HCO3 VBG Total CO2 VBG O2 Sat (Calc) VBG Base Excess VBG Potassium Sodium Chloride Glucose Lactate FiO2 Potassium Carbon Dioxide Anion Gap BUN Creatinine Est GFR ( Amer) Est GFR (Non-Af Amer) Random Glucose Calcium Phosphorus Magnesium Total Bilirubin AST ALT Alkaline Phosphatase Lactate Dehydrogenase Total Creatine Kinase CK-MB (CK-2) CK-MB (CK-2) % Troponin I NT-Pro-B Natriuret Pep 74456 H Total Protein Albumin Globulin Albumin/Globulin Ratio Venous Blood Potassium Urine Color Urine Appearance Urine pH Ur Specific [place] Urine Protein Urine Glucose (UA) Urine Ketones Urine Blood Urine Nitrate Urine Bilirubin Urine Urobilinogen Ur Leukocyte Esterase Urine RBC Urine WBC Ur Epithelial Cells Amorphous Sediment Urine Bacteria Influenza Typ A,B (EIA) Assessment & Plan - Assessment and Plan (Free Text) Assessment: fever, code sepsis Leukocytosis WBC 25.6 Fever 101.2F lactate 4.8 f/u TSH f/u procal f/u ct scan chest with contrast, abdomen/pelvis w/o contrast, neck w/o contrast , lower extremity wo contrast f/u echo f/u urine culture f/u blood culture 2080 CC LR in ED 1L NS fluid bolus in ED, further fluid resuscitation contraindicated due to concern for elevated BNP, vascular congestion on CXR Elevated troponin I, no chest pain BNP 52657 CXR: bilateral venous congestion, mild right lower lobe infiltrate Cardio consult: Dr. Fuentes ASA 81mg PO QD Lovenox 70mg SC BID Lasix 40mg IVP Q12H Diet: HHD, soft Prophylaxis Protonix Lovenox 70 SC BID discussed with Dr. Sharan Crum DO PGY1 - Date & Time Date: 06/15/17 Time: 17:56 <Sharan Ratliff - Last Filed: 06/16/17 14:59> Results - Vital Signs Recent Vital Signs: Last Vital Signs Temp 101 F H 06/16/17 00:53 Pulse 114 H 06/16/17 10:55 Resp 20 06/16/17 06:34 BP 144/111 H 06/16/17 06:00 Pulse Ox 91 L 06/16/17 02:00 - Labs Result Diagrams: 06/16/17 06:35 06/16/17 06:35 Labs: Laboratory Results - last 24 hr 06/15/17 06/15/17 06/15/17 18:55 19:30 23:00 WBC RBC Hgb Hct MCV MCH MCHC RDW Plt Count MPV Gran % Lymph % (Auto) [place] % (Auto) Eos % (Auto) Baso % (Auto) Gran # Lymph # (Auto) [place] # (Auto) Eos # (Auto) Baso # (Auto) ESR D-Dimer, Quantitative pO2 121 H VBG pH 7.44 H VBG pCO2 41.0 VBG HCO3 27.8 VBG Total CO2 29.1 H VBG O2 Sat (Calc) 100.1 H VBG Base Excess 3.3 H VBG Potassium 3.4 L Sodium 133.0 Chloride 99.0 Glucose 135 H Lactate 2.7 H FiO2 21.0 Potassium Carbon Dioxide Anion Gap BUN Creatinine Est GFR ( Amer) Est GFR (Non-Af Amer) Random Glucose Calcium Phosphorus Magnesium Total Bilirubin AST ALT Alkaline Phosphatase Troponin I 1.24 H* Total Protein Albumin Globulin Albumin/Globulin Ratio Venous Blood Potassium 3.4 L Urine Opiates Screen Positive H Urine Methadone Screen Negative Ur Barbiturates Screen Negative Ur Phencyclidine Scrn Negative Ur Amphetamines Screen Negative U Benzodiazepines Scrn Negative U Oth Cocaine Metabols Negative U Cannabinoids Screen Negative 06/16/17 06/16/17 06/16/17 05:55 06:35 06:35 WBC 20.0 H D RBC 4.51 Hgb 12.5 Hct 37.7 MCV 83.6 MCH 27.7 MCHC 33.2 RDW 14.8 H Plt Count 148 MPV 9.3 Gran % 79.2 H Lymph % (Auto) 7.2 L [place] % (Auto) 13.5 H Eos % (Auto) 0.0 L Baso % (Auto) 0.1 Gran # 15.79 H Lymph # (Auto) 1.4 [place] # (Auto) 2.7 H Eos # (Auto) 0.0 Baso # (Auto) 0.02 ESR D-Dimer, Quantitative pO2 VBG pH VBG pCO2 VBG HCO3 VBG Total CO2 VBG O2 Sat (Calc) VBG Base Excess VBG Potassium Sodium 136 Chloride 97 L Glucose Lactate FiO2 Potassium 3.2 L Carbon Dioxide 28 Anion Gap 15 BUN 24 H Creatinine 1.2 Est GFR ( Amer) 55 Est GFR (Non-Af Amer) 46 Random Glucose 115 H Calcium 9.8 Phosphorus 3.9 Magnesium 1.9 Total Bilirubin 1.6 H AST 58 H D ALT 24 Alkaline Phosphatase 83 Troponin I 0.96 H* D Total Protein 8.0 Albumin 3.8 Globulin 4.3 Albumin/Globulin Ratio 0.9 L Venous Blood Potassium Urine Opiates Screen Urine Methadone Screen Ur Barbiturates Screen Ur Phencyclidine Scrn Ur Amphetamines Screen U Benzodiazepines Scrn U Oth Cocaine Metabols U Cannabinoids Screen 06/16/17 06/16/17 11:45 11:45 WBC RBC Hgb Hct MCV MCH MCHC RDW Plt Count MPV Gran % Lymph % (Auto) [place] % (Auto) Eos % (Auto) Baso % (Auto) Gran # Lymph # (Auto) [place] # (Auto) Eos # (Auto) Baso # (Auto) ESR 71 H D-Dimer, Quantitative 2358 H pO2 VBG pH VBG pCO2 VBG HCO3 VBG Total CO2 VBG O2 Sat (Calc) VBG Base Excess VBG Potassium Sodium Chloride Glucose Lactate FiO2 Potassium Carbon Dioxide Anion Gap BUN Creatinine Est GFR ( Amer) Est GFR (Non-Af Amer) Random Glucose Calcium Phosphorus Magnesium Total Bilirubin AST ALT Alkaline Phosphatase Troponin I Total Protein Albumin Globulin Albumin/Globulin Ratio Venous Blood Potassium Urine Opiates Screen Urine Methadone Screen Ur Barbiturates Screen Ur Phencyclidine Scrn Ur Amphetamines Screen U Benzodiazepines Scrn U Oth Cocaine Metabols U Cannabinoids Screen Attending/Attestation - Attestation I have personally seen and examined this patient.: Yes I have fully participated in the care of the patient.: Yes I have reviewed all pertinent clinical information: Yes Notes (Text): I have seen and examined the patient at bedside. Agree with the above note with the following additions/ exceptions: Briefly this is 61 year old female with history of breast cancer with bone mets, HTN, osteoporosis, right hip surgery who came for evaluation of generalized body aches maximum in the neck area and right hip, fever, generalized weakness and fatigue. Patient denies any headache , vision changes, dyspnea, orthopnea, cough, dysuria, diarrhea, chest pain, abdominal pain or palpitations. There are no sick contacts. Patient reported that she is able to do ADLs and IADL's independently. Upon admission, she was found to have leukocytosis, elevated BNP and troponin elevation. CXR reveal bilateral venous congestion. Code sepsis was called. Initially 30 ml/ kg fluid were started however IVF was stopped as she appears to have volume overload due to suspected heart failure. She also had elevated troponin which can be due to NSTEMI vs demand ischemia vs heart failure. Will do blood culture, urine culture, procal, tsh, a1c, lipid panel, ekg, serial troponins, echo and CT scan of chest and hip. Will start broad empiric antibiotics. Start lovenox, lasix and aspirin. Counselling provided regarding narcotic dependence. Will request ID and cardio consult. Upon discharge patient will follow up with Dr Laboy. Dr Sharan Ratliff
[2017-06-15 18:03] LABS: HDL CHOLESTEROL 40 mg/dL (29-60)
[2017-06-15 18:13] LABS: LDL CHOLESTEROL 81 mg/dL (0-129)
[2017-06-15] MEDS ORDERED: Morphine 2 mg/ml ISec IVP PRN (18:21)
--- NOTE | 2017-06-15 18:45 | CT ---
EXAM: CT Abdomen and Pelvis Without Intravenous Contrast EXAM DATE/TIME: 06/15/2017 4:19 PM CLINICAL HISTORY: The patient age is 61 years old and is female; Pain; Abdominal pain and other: Groin; Prior surgery; Surgery type: Rt hip; Additional info: Rlq/groin pain Facility exam id and description: Ct abdpelscon abd pelvis w/o po or iv cont TECHNIQUE: Axial computed tomography images of the abdomen and pelvis without intravenous contrast. All CT scans at this facility use one or more dose reduction techniques, viz.: automated exposure control; ma/kV adjustment per patient size (including targeted exams where dose is matched to indication; i.e. head); or iterative reconstruction technique. Coronal and sagittal reformatted images were created and reviewed. COMPARISON: No relevant prior studies available. FINDINGS: Lower thorax: For discussion of findings at the lung bases, refer to the CT chest report from the same day. ABDOMEN: Liver: Unremarkable. No mass. Gallbladder and bile ducts: Multiple gallstones are visualized. Pancreas: Normal contour. No ductal dilation. Spleen: There is borderline splenomegaly. The spleen measures 12.8 cm in length. Adrenals: No mass. Kidneys and ureters: There is a hypodense probable cyst at the lower pole the right kidney measuring 1.7 cm in diameter. There is no hydronephrosis or obstructive calculi bilaterally. Stomach and bowel: No obstruction. No mucosal thickening. Appendix: A tiny hyperdense appendicolith is visualized within the appendix, without appendiceal distention or acute inflammatory changes. PELVIS: Bladder: No stones. Reproductive: Unremarkable as visualized. ABDOMEN and PELVIS: Intraperitoneal space: No free air. Bones/joints: There is a [id number] compression fracture of the T12 vertebral body, indeterminate in acuity. Postoperative changes are identified involving the right hip. There is advanced right hip arthropathy. Hypertrophic degenerative changes are noted within the spine. Osteopenia. Vasculature: There is atherosclerotic calcification of the abdominal aorta. No abdominal aortic aneurysm. Lymph nodes: No enlarged lymph nodes. IMPRESSION: 1. Cholelithiasis. 2. There is borderline splenomegaly. 3. There is a hypodense probable cyst at the lower pole the right kidney measuring 1.7 cm in diameter. There is no hydronephrosis or obstructive calculi bilaterally. 4. A tiny hyperdense appendicolith is visualized within the appendix, without appendiceal distention or acute inflammatory changes. 5. There is a [id number] compression fracture of the T12 vertebral body, indeterminate in acuity. Clinical correlation is recommended. 6. Incidental/non-acute findings are described above.
--- NOTE | 2017-06-15 19:01 | CT ---
EXAM: CT Cervical Spine Without Intravenous Contrast EXAM DATE/TIME: 06/15/2017 4:23 PM CLINICAL HISTORY: The patient age is 61 years old and is female; Pain; Neck pain; Additional info: Neck pain, bone cancer Facility exam id and description: Ct csps cervical spine w/o contrast TECHNIQUE: Axial computed tomography images of the cervical spine without intravenous contrast. All CT scans at this facility use one or more dose reduction techniques, viz.: automated exposure control; ma/kV adjustment per patient size (including targeted exams where dose is matched to indication; i.e. head); or iterative reconstruction technique. Coronal and sagittal reformatted images were created and reviewed. COMPARISON: No relevant prior studies available. FINDINGS: Vertebrae: No acute cervical spine fracture. The cervical lordosis is straightened. There is slight anterolisthesis of C3 on C4 and C7 on T1. Hypertrophic degenerative changes are identified at the junction of the anterior C1 arch and dens process. The facet alignment is preserved bilaterally. The occipital condyles and C1-C2 articulations appear intact. Hypertrophic changes are visualized posterior to the dens process. No well-defined osseous mass is visualized within the cervical vertebral bodies. Discs/spinal canal/neural foramina: Spondylosis is visualized at multiple cervical levels. There is a posterior disc protrusion at C4-5 with moderate narrowing of the thecal sac. Mild narrowing of the thecal sac is visualized at C5-6 with left-sided spondylitic ridging. Bilateral neural foramina is identified at C4-5 and C5-6, with right neural foraminal narrowing at C7-T1. Artifact limits evaluation of the lower cervical spinal canal. Soft tissues: Vasculature: There is mild atherosclerosis of the aortic arch. There is atherosclerotic calcification of the extracranial carotid arteries. Retropharyngeal space: Hypodense fluid is visualized within the retropharyngeal space, which may be infectious or inflammatory. Lung apices: A small groundglass density infiltrate is visualized within the right upper lobe of the lung. No pneumothorax. IMPRESSION: 1. No acute cervical spine fracture. 2. The cervical lordosis is straightened. There is slight anterolisthesis of C3 on C4 and C7 on T1. 3. Spondylosis is visualized at multiple cervical levels. 4. There is a posterior disc protrusion at C4-5 with moderate narrowing of the thecal sac. Mild narrowing of the thecal sac is visualized at C5-6 with left-sided spondylitic ridging. This can be further evaluated with a nonemergent MRI. 5. Bilateral neural foramina is identified at C4-5 and C5-6, with right neural foraminal narrowing at C7-T1. 6. Hypodense fluid is visualized within the retropharyngeal space, which may be infectious or inflammatory. Clinical correlation is recommended. 7. A small groundglass density infiltrate is visualized within the right upper lobe of the lung.
[2017-06-15] MEDS ORDERED: oxyCODONE 30 mg Immediate Release Tab PO PRN ×3 (19:10→19:12)
--- NOTE | 2017-06-15 19:10 | CT ---
EXAM: CT Chest Without Intravenous Contrast EXAM DATE/TIME: 06/15/2017 5:56 PM CLINICAL HISTORY: The patient age is 61 years old and is female; Signs and symptoms; Other: Assess for lung fibrosis vs atypical pna Facility exam id and description: Ct [place] chest w/o high res chest TECHNIQUE: Axial computed tomography images of the chest without intravenous contrast. All CT scans at this facility use one or more dose reduction techniques, viz.: automated exposure control; ma/kV adjustment per patient size (including targeted exams where dose is matched to indication; i.e. head); or iterative reconstruction technique. Coronal and sagittal reformatted images were created and reviewed. COMPARISON: DX - CHEST PORTABLE 2017-06-15 15:32 FINDINGS: Lungs: Patchy ground glass density infiltrates are identified within the right lung. Atypical infection and pneumonitis are within the differential. Additional interstitial and airspace disease is visualized within the dependent portions of the lungs. No lung mass. Pleural space: No pneumothorax. No significant effusion. Heart: No cardiomegaly. No significant pericardial effusion. Bones/joints: There is a cuvo-if-tqmdniif compression fracture of the T12 vertebral body, indeterminate in acuity. A pathological fracture cannot be excluded. Sclerotic changes visualized within the body of the sternum with mild osseous expansion, concerning for malignancy in a patient with a history of bone cancer. Several old left rib fractures are visualized. Soft tissues: There is a small calcification within the lateral aspect of the right breast. Vasculature: There is atherosclerotic calcification of the aorta. No thoracic aortic aneurysm. Lymph nodes: Small mediastinal and axillary lymph nodes are visualized, without significant lymphadenopathy. Evaluation of hilar lymph nodes is limited by the absence of intravenous contrast. Intraperitoneal space: For discussion of findings within the upper abdomen, refer to the CT abdomen/pelvis report from the same day. IMPRESSION: 1. Patchy ground glass density infiltrates are identified within the right lung. Atypical infection and pneumonitis are within the differential. Additional interstitial and airspace disease is visualized within the dependent portions of the lungs. Clinical correlation and follow-up CT are recommended. 2. There is a kgwp-ry-rjteserb compression fracture of the T12 vertebral body, indeterminate in acuity. A pathological fracture cannot be excluded. Sclerotic change is visualized within the body of the sternum with mild osseous expansion, concerning for malignancy in a patient with a history of bone cancer. Bone scan is recommended. 3. Incidental/non-acute findings are described above.
[2017-06-15 19:47] LABS: BARBITURATES, UR NEGATIVE (NEGATIVE); BENZODIAZEPINES, UR NEGATIVE (NEGATIVE); OPIATES, UR POSITIVE (NEGATIVE); PHENCYCLIDINE, UR NEGATIVE (NEGATIVE)
[2017-06-15 19:47] LABS: VENOUS BLOOD GAS BASE EXCESS 3.3 mmol/L (0.0-2.0); VENOUS BLOOD GAS PO2 121 mm/Hg (30-55); VENOUS BLOOD PH 7.44 (7.32-7.43)
--- NOTE | 2017-06-15 19:59 | PCM.SEPTIC ---
Sepsis Progress Note - Reassessment Type Date of Evaluation: 06/15/17 Time of Evaluation: 19:57 Reassessment Type: Non-invasive reassessment - Non Invasive Reassessment Were the most recent vital sign reviewed: Yes Vital Sign (Latest): Temp Pulse Resp BP Pulse Ox 98.7 F 100 H 16 141/75 97 06/15/17 18:15 06/15/17 19:00 06/15/17 19:00 06/15/17 19:00 06/15/17 19:00 Cardiovascular: Yes: Regular Rate, Rhythm. No: Bradycardia, Tachycardia Respiratory: Yes: Normal Breath Sounds. No: Accessory Muscle Use Capillary Refill: Normal (Less than 2 sec) Skin: Warm, Dry Was a passive leg raise performed or was a fluid challenge performed within 6 hrs of the initial fluid bolus: No Fluid Challenge performed: No
[2017-06-15 21:18] VITALS: BMI 26.4
[2017-06-15] MEDS ORDERED: Morphine 2 mg/ml ISec IVP ONE (22:35)
--- NOTE | 2017-06-15 22:39 | PCM.SEPTIC ---
Sepsis Progress Note - Reassessment Type Date of Evaluation: 06/15/17 Time of Evaluation: 20:45 Reassessment Type: Non-invasive reassessment - Non Invasive Reassessment Were the most recent vital sign reviewed: Yes Vital Sign (Latest): Temp Pulse Resp BP Pulse Ox 98.2 F 96 H 16 155/84 H 97 06/15/17 19:28 06/15/17 19:28 06/15/17 19:28 06/15/17 19:28 06/15/17 19:00 Cardiovascular: Yes: Tachycardia. No: Gallop, JVD, Murmur, Friction Rub Respiratory: Yes: Normal Breath Sounds. No: Wheezing Capillary Refill: Normal (Less than 2 sec) Pulses: Normal Radial, Normal Dorsalis Pedis, Normal Posterior Tibialis Skin: Warm, Dry
[2017-06-16] MEDS: Morphine 2 mg/ml ISec IVP PRN ×4 (02:35→13:19)
--- NOTE | 2017-06-16 03:34 | CON ---
DATE: 06/15/2017 REQUESTING PHYSICIAN: Usama Ramos MD. CHIEF COMPLAINT: She presented with generalized pain especially hip pain for the past 2 days. HISTORY OF PRESENT ILLNESS: Ms. Strauss is a 61-year-old anxious female, who has a history of stage IV breast CA, metastatic to the bones and hypertension and presents to the hospital because of generalized pain especially in the right hip where she has a history of hip surgery and she has pins in that area. The patient is noted to have fever of 101.3. She has increased lactate as well as increased white count and also complains of groin pain and urinary incontinence. It is also noted that the patient has increased BNP and positive troponin. She does not complain of shortness of breath, cough, wheezing, chest congestion and no chest pain at this time. No nausea or vomiting. No diarrhea. PAST MEDICAL HISTORY: Significant for the breast CA and mets to the bone, the hip surgery on the right with pins placed in the past, hypertension as well as anxiety. ALLERGIES: THE PATIENT HAS NO KNOWN ALLERGIES. CURRENT MEDICATIONS: Can be evaluated as per the nurses' intake form. SOCIAL HISTORY: No history of smoking or EtOH abuse or drug abuse. FAMILY HISTORY: Noncontributory. REVIEW OF SYSTEMS: CONSTITUTIONAL: All negative except for the fact that she does have a fever. HEENT: The patient does have some complaints of neck stiffness and pain. Other than the neck stiffness, within normal limits. CARDIOVASCULAR: All negative. RESPIRATORY: All negative. GASTROINTESTINAL: All negative. GENITOURINARY: All negative except for the fact that she recently did complain of some urinary incontinence. NEUROLOGIC/PSYCHIATRIC: The patient has the generalized pain, but moving all extremities except difficulty moving the right lower extremity because of pain and the hip problem. ENDOCRINE: All negative. HEMATOLOGIC: All negative. IMMUNOLOGIC: All negative. INTEGRITY: All negative. PHYSICAL EXAMINATION: VITAL SIGNS: Note that her temperature is 101.2, her pulse is 103, respirations are 18, BP is 153/87, and pulse ox is 98% on room air. HEENT: Head is atraumatic, normocephalic. Eyes are reactive to light. Ear, nose and throat seem to be within normal limits. NECK: Supple, but she does complain of a little stiffness when rotating. LUNGS: Reveal good breath sounds bilaterally. There may be a little mild decrease at the bases. HEART: Has a regular rate and rhythm. Normal S1, S2. Mildly tachycardic. ABDOMEN: Soft. Decreased bowel sounds. GENITALIA AND RECTAL: Deferred. MUSCULOSKELETAL: No joint deformities. EXTREMITIES: Reveal trace lower extremity edema. NEUROLOGIC: She seems to be grossly intact. LABORATORY DATA: Her white count is 25.6, hemoglobin is 12.3, hematocrit 38.2 with platelets of 150,000. Her sodium is 134, potassium 3.6, chloride 95, CO2 of 22 with a BUN of 16, creatinine of 0.9 and a glucose of 124. Her chest x-ray reveals moderate vascular congestion and her CT of the abdomen and pelvis revealed that there is some cholelithiasis as well as T12 compression fracture. The patient's BNP is elevated. IMPRESSION: This patient has breast cancer with metastasis to the bones. She has generalized pain. She has fever as well as positive lactate, we must rule out sepsis. The patient has an increased BNP, so there is a diagnosis of congestive heart failure and she has increased troponin, so rule out myocardial infarction. She has urinary incontinence as well as generalized body aches and right hip pain. Note that she has a T12 compression fracture and cholelithiasis. PLAN: We will continue with IV fluids. The patient is getting aspirin as well as Lasix for appropriate diuresis. She is on Lovenox and Cardiology has been consulted. The patient is getting oxycodone for pain as well as Neurontin and has been started on vancomycin as well as Zosyn. We will continue with close observation and continue to treat aggressively along with the other consultants and the primary care doctor. Jason Marcos MD
[2017-06-16] MEDS: Enoxaparin 80 mg Syringe SC SCH ×2 (06:26→18:21)
[2017-06-16 06:45] LABS: BASO # 0.02 K/mm3 (0.0-2.0); BASO % 0.1 % (0.0-3.0); GRAN # 15.79 (1.4-6.5); GRAN % 79.2 % (50.0-68.0); HEMOGLOBIN 12.5 g/dL (12.0-16.0); LYMPH # 1.4 (1.2-3.4); LYMPH % 7.2 % (22.0-35.0); MEAN CELL VOLUME 83.6 fl (80.0-105.0); MEAN CORPUSCULAR HEMOGLOBIN 27.7 pg (25.0-35.0); MEAN CORPUSCULAR HGB CONC 33.2 g/dl (31.0-37.0); MEAN PLATELET VOLUME 9.3 fl (7.0-11.0); MONO # 2.7 (0.1-0.6); MONO % 13.5 % (1.0-6.0); RBC 4.51 10^6/uL (3.5-6.1); RED CELL DISTRIBUTION WIDTH 14.8 % (11.5-14.5)
[2017-06-16] MEDS ORDERED: Vancomycin 1gm in NS 250ml 1 GM/250 ML BAG IVPB SCH (06:45)
[2017-06-16 06:58] LABS: ALB/GLOB RATIO 0.9 (1.1-1.8); ALBUMIN 3.8 g/dL (3.0-4.8); CALCIUM 9.8 mg/dL (8.4-10.5)
[2017-06-16] MEDS ORDERED: Meropenem 1 GM in Dextrose 5% In Water 100 ML IVPB SCH (07:00)
[2017-06-16] MEDS ORDERED: Morphine 2 mg/ml ISec IVP PRN ×2 (08:48→14:44)
[2017-06-16] MEDS: oxyCODONE 30 mg Immediate Release Tab PO PRN ×2 (08:51→15:00)
[2017-06-16] MEDS: Meropenem 1g/NS 100mL IVPB 1 GM/100 ML PIGGYBACK IVPB SCH ×2 (08:59→20:59)
--- NOTE | 2017-06-16 09:16 | PN ---
DATE: 06/16/2017 GMAT INSTRUCTOR NOTE SUBJECTIVE: The patient is awake and alert, still complains of hip pain in the right side. She has no complaints of nauseousness or vomiting, no chest pain, no fever or chills, no wheezing or congestion and no diarrhea. PHYSICAL EXAMINATION VITAL SIGNS: Temperature of 101, her pulse is 108, respirations are 20 and BP is 144/111. HEENT: Head is atraumatic, normocephalic. Eyes are reactive to light. Ears, nose and throat seemed to be within normal limits. NECK: Supple. No JVD, no thyroid enlargement, no lymph nodes. HEART: Has regular rate and rhythm. Normal S1, S2, with mildly tachycardic. LUNGS: Reveal good breath sounds bilaterally. ABDOMEN: Soft. Decreased bowel sounds. GENITALIA AND RECTAL: Deferred. MUSCULOSKELETAL: No joint deformities. EXTREMITIES: Reveal trace lower extremity edema. NEUROLOGIC: The patient is moving all extremities and is oriented x3, and awake and alert. LABORATORY DATA: As far as her laboratories are concerned, her white count is 20.0, hemoglobin is 12.5, hematocrit 37.7 with platelets of 148,000. Sodium is 136, potassium 3.2, chloride 97, CO2 of 28, BUN of 24, creatinine of 1.2 and a glucose of 115. Note that the patient's troponin has been decreasing, this morning it is 0.96. IMPRESSION: The patient has breast cancer with metastatic lesions to the bone and generalized pain. She is noted to have a cervical spondylitis as well as a right lung infiltrate, most likely reflecting some areas of pneumonia. The patient has fever and initially presented with some congestive heart failure and continues to have abnormal troponin. She has ruled out myocardial infarction and Cardiology has been consulted. She has urinary incontinence along with significant right hip pain secondary to hip surgery and possible metastatic lesions. The patient has a T12 compression fracture and cholelithiasis. PLAN: We will continue with IV fluids, continue with pain meds. She is on aspirin and Lasix as well as the Lovenox. The patient is getting oxycodone for pain as well as Neurontin and we will continue with vancomycin and Zosyn. We will make sure ID consult is sent and we will follow closely and treat aggressively along with the other consultants and the primary care doctor. Jason Marcos MD
[2017-06-16] MEDS ORDERED: Vancomycin 500 mg Inj IVPB SCH (10:00)
[2017-06-16] MEDS ORDERED: Vancomycin 1gm in NS 250ml IVPB SCH (10:00)
[2017-06-16] MEDS ORDERED: DAPTOmycin 500 mg Inj (Cubicin) IV SCH (10:00)
[2017-06-16] MEDS ORDERED: Potassium Chloride 20 mEq ER Tab PO ONE (10:36)
--- NOTE | 2017-06-16 10:46 | CP.PCM.PN ---
<RadamesMiranda - Last Filed: 06/16/17 11:18> Subjective - Date & Time of Evaluation Date of Evaluation: 06/16/17 Time of Evaluation: 10:45 - Subjective Subjective: Progress note Patient seen and examined at bedside. Patient states she's in a lot of pain in her right hip. Patient denies fever, chills, dysuria, diarrhea, dysphagia, abdominal pain. Patient admits to neck pain, right hip pain. Objective - Vital Signs/Intake and Output Vital Signs (last 24 hours): Temp Pulse Resp BP Pulse Ox 101 F H 108 H 20 144/111 H 91 L 06/16/17 00:53 06/16/17 06:34 06/16/17 06:34 06/16/17 06:00 06/16/17 02:00 Intake and Output: 06/16/17 06/16/17 06:59 18:59 Intake Total 250 Output Total 1500 Balance -1250 - Medications Medications: Current Medications Acetaminophen (Tylenol 325mg Tab) 650 mg PO Q8H PRN PRN Reason: Fever >100.4 F Last Admin: 06/15/17 23:53 Dose: 650 mg Aspirin (Aspirin Chewable) 81 mg PO DAILY [facility] Last Admin: 06/16/17 09:01 Dose: 81 mg Clopidogrel Bisulfate (Plavix) 75 mg PO DAILY [facility] Enoxaparin Sodium (Lovenox) 70 mg SC Q12H [facility] PRN Reason: Protocol Last Admin: 06/16/17 06:26 Dose: 70 mg Gabapentin (Neurontin) 300 mg PO TID [facility] PRN Reason: Protocol Last Admin: 06/16/17 09:01 Dose: 300 mg Hydralazine HCl (Apresoline) 10 mg PO QID PRN PRN Reason: for sbp>170 or diastolic>100 Doxycycline Hyclate 100 mg/ (Sodium Chloride) 100 mls @ 100 mls/hr IVPB Q12 [facility] PRN Reason: Protocol Last Admin: 06/16/17 08:10 Dose: 100 mls/hr Meropenem/Sodium Chloride (Meropenem 1g/Ns 100ml Ivpb) 1 gm in 100 mls @ 100 mls/hr IVPB Q12H [facility] Stop: 06/23/17 07:31 Last Admin: 06/16/17 08:59 Dose: 100 mls/hr Daptomycin 420 mg/ Sodium (Chloride) 100 mls @ 200 mls/hr IV Q24H [facility] Stop: 06/21/17 10:01 Potassium Chloride (Potassium Chloride 20 Meq/100 Ml) 20 meq in 100 mls @ 50 mls/hr IVPB Q2H [facility] Stop: 06/16/17 14:44 Lorazepam (Ativan) 0.5 mg IVP Q6H PRN; Protocol PRN Reason: Anxiety Last Admin: 06/16/17 08:10 Dose: 0.5 mg Metoprolol Tartrate (Lopressor) 50 mg PO BID [facility] Morphine Sulfate (Morphine) 1 mg IVP Q4H PRN PRN Reason: Pain, moderate (4-7) Last Admin: 06/16/17 08:53 Dose: 1 mg Oseltamivir Phosphate (Tamiflu) 30 mg PO BID [facility] PRN Reason: Protocol Stop: 06/21/17 06:49 Last Admin: 06/16/17 09:01 Dose: 30 mg Oxycodone HCl (Oxycodone Immediate Release Tab) 30 mg PO Q6H PRN PRN Reason: Pain, severe (8-10) Last Admin: 06/16/17 08:51 Dose: 30 mg - Labs Labs: 06/16/17 06:35 06/16/17 06:35 PT 13.0 SECONDS (9.4-12.5) H 06/15/17 14:20 INR 1.14 (0.93-1.08) H 06/15/17 14:20 APTT 29.7 Seconds (25.1-36.5) 06/15/17 14:20 - Constitutional Appears: Non-toxic, No Acute Distress - Head Exam Head Exam: NORMAL INSPECTION, NORMOCEPHALIC - Eye Exam Eye Exam: EOMI, Normal appearance Pupil Exam: NORMAL ACCOMODATION, PERRL - ENT Exam ENT Exam: Mucous Membranes Moist, Normal Exam - Neck Exam Neck Exam: Full ROM. absent: Tenderness, Thyromegaly - Respiratory Exam Respiratory Exam: NORMAL BREATHING PATTERN. absent: Accessory Muscle Use - Cardiovascular Exam Cardiovascular Exam: REGULAR RHYTHM, +S1, +S2. absent: Bradycardia, Tachycardia - GI/Abdominal Exam GI & Abdominal Exam: Soft. absent: Tenderness - Extremities Exam Extremities Exam: absent: Pedal Edema Additional comments: patient was able to move toes bilaterally DP. PT. AT pulses palpable bilaterally. Patient did not lift her right leg against gravity due to the pain. - Neurological Exam Neurological Exam: Awake, CN II-XII Intact, Oriented x3 - Psychiatric Exam Psychiatric exam: Normal Affect, Normal Mood - Skin Skin Exam: Dry, Intact, Normal Color, Warm Assessment and Plan - Assessment and Plan (Free Text) Assessment: fever, code sepsis leukocytosis, downtrending lactate, downtrending Blood cultures positive x 2 gram positive cocci UA negative urine tox: positive for opiates ID consult: Dr. Chung CT Chest w/o contrast: right lung patchy ground glass density infiltrates. mild to moderate compression of T12 CT neck: no acute cervical spine fracture. cervical lordosis straightened. anterolisthesis C3 onC4 and C7 on T1. Spondylosis at multiple cervical levels. mild narrowing of thecal sac at C5-6 with left sided spondylitic ridging, posterior disc protrusion C4-5. hypodense fluid visualized in retropharyngeal space. small gruond glass density infiltrate in right upper lobe of lung. CT abdomen/pelvis Daptomycin 420mg Q24H Doxycycline 100mg Q12H Merrem 1 gm IVPB Q12H Oseltamivir 30mg PO BID oxycodone 30mg PO Q6H PRN, home med f/u HIV, Influenza A, ESR, D Dimer Tylenol 650mg PO Q8H PRN, fever mildy elevated transaminitis (AST) elevated troponin I, downtrending, likely 2/2 demand ischemia BNP [id number] CXR: bilateral venous congestion, mild right lower lobe infiltrate Cardio consult: Dr. Fuentes consider standing Lasix order if venous congestion remains an issue ASA 81mg PO QD Lovenox 70mg SC BID history of htn Metoprolol Tartrate 50mg BID Diet: HHD, soft Prophylaxis Protonix Lovenox [address] SC BID discussed with Dr. Lawrence Crum, DO PGY1 <David Bravo - Last Filed: 06/16/17 12:47> Objective - Vital Signs/Intake and Output Vital Signs (last 24 hours): Temp Pulse Resp BP Pulse Ox 101 F H 114 H 20 144/111 H 91 L 06/16/17 00:53 06/16/17 10:55 06/16/17 06:34 06/16/17 06:00 06/16/17 02:00 Intake and Output: 06/16/17 06/16/17 06:59 18:59 Intake Total 250 Output Total 1500 Balance -1250 - Medications Medications: Current Medications Acetaminophen (Tylenol 325mg Tab) 650 mg PO Q8H PRN PRN Reason: Fever >100.4 F Last Admin: 06/15/17 23:53 Dose: 650 mg Aspirin (Aspirin Chewable) 81 mg PO DAILY [facility] Last Admin: 06/16/17 09:01 Dose: 81 mg Clopidogrel Bisulfate (Plavix) 75 mg PO DAILY [facility] Enoxaparin Sodium (Lovenox) 70 mg SC Q12H [facility] PRN Reason: Protocol Last Admin: 06/16/17 06:26 Dose: 70 mg Gabapentin (Neurontin) 300 mg PO TID [facility] PRN Reason: Protocol Last Admin: 06/16/17 09:01 Dose: 300 mg Hydralazine HCl (Apresoline) 10 mg PO QID PRN PRN Reason: for sbp>170 or diastolic>100 Doxycycline Hyclate 100 mg/ (Sodium Chloride) 100 mls @ 100 mls/hr IVPB Q12 [facility] PRN Reason: Protocol Last Admin: 06/16/17 08:10 Dose: 100 mls/hr Meropenem/Sodium Chloride (Meropenem 1g/Ns 100ml Ivpb) 1 gm in 100 mls @ 100 mls/hr IVPB Q12H [facility] Stop: 06/23/17 07:31 Last Admin: 06/16/17 08:59 Dose: 100 mls/hr Daptomycin 420 mg/ Sodium (Chloride) 100 mls @ 200 mls/hr IV Q24H [facility] Stop: 06/21/17 10:01 Last Admin: 06/16/17 10:57 Dose: 200 mls/hr Potassium Chloride (Potassium Chloride 20 Meq/100 Ml) 20 meq in 100 mls @ 50 mls/hr IVPB Q2H [facility] Stop: 06/16/17 14:44 Last Admin: 06/16/17 10:55 Dose: 50 mls/hr Lorazepam (Ativan) 0.5 mg IVP Q6H PRN; Protocol PRN Reason: Anxiety Last Admin: 06/16/17 08:10 Dose: 0.5 mg Metoprolol Tartrate (Lopressor) 50 mg PO BID [facility] Last Admin: 06/16/17 10:55 Dose: 50 mg Morphine Sulfate (Morphine) 1 mg IVP Q4H PRN PRN Reason: Pain, moderate (4-7) Last Admin: 06/16/17 08:53 Dose: 1 mg Oseltamivir Phosphate (Tamiflu) 30 mg PO BID [facility] PRN Reason: Protocol Stop: 06/21/17 06:49 Last Admin: 06/16/17 09:01 Dose: 30 mg Oxycodone HCl (Oxycodone Immediate Release Tab) 30 mg PO Q6H PRN PRN Reason: Pain, severe (8-10) Last Admin: 06/16/17 08:51 Dose: 30 mg - Labs Labs: 06/16/17 06:35 06/16/17 06:35 PT 13.0 SECONDS (9.4-12.5) H 06/15/17 14:20 INR 1.14 (0.93-1.08) H 06/15/17 14:20 APTT 29.7 Seconds (25.1-36.5) 06/15/17 14:20 Attending/Attestation - Attestation I have personally seen and examined this patient.: Yes I have fully participated in the care of the patient.: Yes I have reviewed all pertinent clinical information, including history, physical exam and plan: Yes Notes (Text): 06/16/17 12:37 61 year old female with past medical history of metastatic breast cancer presented with complaint of generalized body aches including neck and hip pain. She was found to have SIRS/sepsis with leukocytosis, elevated lactate and ground glass opacities on right lung on CT chest. BCx also positive gram positive cocci x 2. Continue with iv antibiotics. ID evaluation is requested. She was also found to have elevated troponins; r/o NSTEMI. She is on aspirin, metoprolol and lovenox. Cardiology evaluation is requested and echocardiogram is ordered. CT angio is also ordered to rule out PE. Initial CXR showed congestion and pbnp was elevated. She received lasix yesterday. Continue with intermittent lasix as needed. Echocardiogram is pending as above to assess EF. Continue with oxycodone for pain. CT cervical spine, CT chest/abdomen/pelvis were revewed as above. CT angio and LE are ordered. Will replete and repeat potassium. David Bravo MD Hospitalist.
--- NOTE | 2017-06-16 11:49 | CARD ---
APPROVED REPORT EKG Measurement Heart [id number] <Conclusion> Sinus tachycardia with occasional premature ventricular complexes Septal infarct, age undetermined Abnormal ECG
--- NOTE | 2017-06-16 11:53 | CARD ---
APPROVED REPORT EKG Measurement Heart [id number] <Conclusion> Sinus tachycardia Anterior infarct, age undetermined Abnormal ECG
--- NOTE | 2017-06-16 11:53 | CARD ---
APPROVED REPORT EKG Measurement Heart [id number] <Conclusion> Sinus tachycardia Cannot rule out Anterior infarct, age undetermined Abnormal ECG
[2017-06-16] MEDS ORDERED: Iodixanol 320 MG/ML 100 ML BOTTLE IV ONE (14:54)
--- NOTE | 2017-06-16 16:51 | CT ---
PROCEDURE: CT Chest with contrast (Pulmonary Angiogram) HISTORY: shortness of breath COMPARISON: 06/15/2017 TECHNIQUE: Axial computed tomography images were obtained of the chest in the pulmonary arterial phase of enhancement. Coronal and sagittal reformatted images were created and reviewed. This CT exam was performed using one or more of the following dose reduction techniques: Automated exposure control, adjustment of the mA and/or kV according to patient size, and/or use of iterative reconstruction technique. Intravenous contrast dose: 100 cc of Visipaque Radiation dose: Total exam DLP = 501 mGy-cm. FINDINGS: PULMONARY ARTERIES: Unremarkable. No pulmonary embolism. AORTA: No acute findings. No thoracic aortic aneurysm. LUNGS: Minimal patchy infiltrates are seen at both lung bases posteriorly. PLEURAL SPACES: Unremarkable. No effusion or pneuomothorax. HEART: Unremarkable. No cardiomegaly. No significant pericardial effusion. LYMPH NODES: No lymphadenopathy. BONES, CHEST WALL: T12 compression fracture age uncertain OTHER FINDINGS: Unremarkable. IMPRESSION: Patchy interstitial infiltrates in both lower lobes, possible pneumonia. No evidence of pulmonary embolus
--- NOTE | 2017-06-16 16:56 | CP.PCM.CON ---
History of Present Illness - History of Present Illness History of Present Illness: 61 year old female with PMH of breast cancer with bone metastases on chemotherapy, HTN, osteoporosis, former drug user was brought in to [facility] [place] because of body aches as well as neck pain and hip pain. She also states she has fevers. She denies sore throat, no headache, no dizziness, no chest pain, has some cough, no SOB at rest, no nausea or vomiting, no abdominal pain, no diarrhea, no dysuria. CT chest has been done which shows possible pneumonitis. Blood cx are now showing Staph aureus in the blood. Infectious Diseases consult is requested to further evaluate and manage. Review of Systems - Review of Systems All systems: reviewed and no additional remarkable complaints except (as per HPI ) Past Patient History - Infectious Disease Hx of Infectious Diseases: None - Tetanus Immunizations Tetanus Immunization: Unknown - Past Social History Smoking Status: Never Smoked - CARDIAC Hx Hypertension: Yes - PULMONARY Hx Respiratory Disorders: No - NEUROLOGICAL Hx Neurological Disorder: No - HEENT Hx HEENT Problems: No - RENAL Hx Chronic Kidney Disease: No - ENDOCRINE/METABOLIC Hx Endocrine Disorders: No - HEMATOLOGICAL/ONCOLOGICAL Hx Cancer: Yes Hx Chemotherapy: Yes Hx Metastesis: Yes - INTEGUMENTARY Hx Dermatological Problems: No - MUSCULOSKELETAL/RHEUMATOLOGICAL Hx Falls: No - GASTROINTESTINAL Hx Gastrointestinal Disorders: No - GENITOURINARY/GYNECOLOGICAL Hx Genitourinary Disorders: No - PSYCHIATRIC Hx Anxiety: Yes Hx Substance Use: No - SURGICAL HISTORY Hx Surgeries: Yes Hx Orthopedic Surgery: Yes Other/Comment: hip pin - ANESTHESIA Hx Anesthesia: Yes Hx Anesthesia Reactions: No Meds Allergies/Adverse Reactions: Allergies Allergy/AdvReac Type Severity Reaction Status Date / Time No Known Allergies Allergy Verified 06/15/17 15:01 - Medications Medications: Current Medications Acetaminophen (Tylenol 325mg Tab) 650 mg PO Q8H PRN PRN Reason: Fever >100.4 F Last Admin: 06/15/17 23:53 Dose: 650 mg Aspirin (Aspirin Chewable) 81 mg PO DAILY [facility] Enoxaparin Sodium (Lovenox) 70 mg SC Q12H [facility] PRN Reason: Protocol Last Admin: 06/16/17 06:26 Dose: 70 mg Gabapentin (Neurontin) 300 mg PO TID [facility] PRN Reason: Protocol Vancomycin HCl (Vancomycin 1gm) 1 gm in 250 mls @ 167 mls/hr IVPB Q12 [facility] PRN Reason: Protocol Lorazepam (Ativan) 0.5 mg IVP Q6H PRN; Protocol PRN Reason: Anxiety Last Admin: 06/16/17 02:46 Dose: 0.5 mg Morphine Sulfate (Morphine) 1 mg IVP Q4H PRN PRN Reason: Pain, severe (8-10) Last Admin: 06/16/17 06:25 Dose: 1 mg Physical Exam - Constitutional Appears: Chronically Ill - Head Exam Head Exam: NORMAL INSPECTION - ENT Exam ENT Exam: Mucous Membranes Moist - Neck Exam Neck exam: Negative for: Lymphadenopathy, Meningismus - Respiratory Exam Respiratory Exam: Decreased Breath Sounds - Cardiovascular Exam Cardiovascular Exam: +S1, +S2 - GI/Abdominal Exam GI & Abdominal Exam: Soft. absent: Tenderness Results - Vital Signs Recent Vital Signs: Last Vital Signs Temp 101 F H 06/16/17 00:53 Pulse 98 H 06/16/17 06:00 Resp 28 H 06/16/17 01:00 BP 139/81 06/16/17 01:00 Pulse Ox 91 L 06/16/17 01:00 - Labs Result Diagrams: 06/16/17 06:35 06/16/17 06:35 Labs: Laboratory Results - last 24 hr 06/15/17 06/15/17 06/15/17 18:55 19:30 23:00 pO2 121 H VBG pH 7.44 H VBG pCO2 41.0 VBG HCO3 27.8 VBG Total CO2 29.1 H VBG O2 Sat (Calc) 100.1 H VBG Base Excess 3.3 H VBG Potassium 3.4 L Sodium 133.0 Chloride 99.0 Glucose 135 H Lactate 2.7 H FiO2 21.0 Troponin I 1.24 H* Venous Blood Potassium 3.4 L Urine Opiates Screen Positive H Urine Methadone Screen Negative Ur Barbiturates Screen Negative Ur Phencyclidine Scrn Negative Ur Amphetamines Screen Negative U Benzodiazepines Scrn Negative U Oth Cocaine Metabols Negative U Cannabinoids Screen Negative 06/16/17 05:55 pO2 VBG pH VBG pCO2 VBG HCO3 VBG Total CO2 VBG O2 Sat (Calc) VBG Base Excess VBG Potassium Sodium Chloride Glucose Lactate FiO2 Troponin I 0.96 H* D Venous Blood Potassium Urine Opiates Screen Urine Methadone Screen Ur Barbiturates Screen Ur Phencyclidine Scrn Ur Amphetamines Screen U Benzodiazepines Scrn U Oth Cocaine Metabols U Cannabinoids Screen Assessment & Plan - Assessment and Plan (Free Text) Plan: Assessment Sepsis due to Staph aureus bacteremia, source to be determined; need to rule out hip arthritis, R/O vegetations on the heart valves, R/O pneumonitis breast cancer with bone metastases on chemotherapy HTN osteoporosis former drug user Plan Started Daptomycin, Merrem, Doxycycline pending repeat blood cx, 2D echo, CT leg /hip; may need to image the neck if no source of the bacteremia is found with the initial work up follow up Influenza serology - started also on Tamiflu will monitor clinically
[2017-06-16] MEDS ORDERED: Enoxaparin 80 mg Syringe SC SCH (17:00)
--- NOTE | 2017-06-16 17:00 | CT ---
PROCEDURE: CT of the right hip without contrast HISTORY: right hip pain, history of metastatic bone ca COMPARISON: TECHNIQUE: This CT exam was performed using one or more of the following dose reduction techniques: Automated exposure control, adjustment of the mA and/or kV according to patient size, and/or use of iterative reconstruction technique. FINDINGS: Orthopedic screws are seen in the right femoral head and neck. Degenerative changes are seen in the hip joint with irregularity of the articular surface of the femoral head. There is no evidence of a discrete metastatic lesion. There is some loss of trabecular bone with lucency in the iliac. There is no cortical destruction IMPRESSION: Degenerative changes in the right hip. No evidence of acute fracture
--- NOTE | 2017-06-16 21:46 | CON ---
DATE: 06/16/2017 SERVICE: Cardiology. Covering for Dr. Alessandro Fuentes. REASON FOR CONSULTATION: Cardiology consult, positive troponin, rule out [place], admitted with shortness of breath, gram-positive sepsis, CA breast with metastasis, and pain all over the body. 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 The patient denies any chest pain. She denies any palpitation. So Cardiology consult was called. I advised the patient to do the CT angio to rule out PE, but apparently it looks like the patient refused and just a regular CAT scan was done that showed bilateral infiltrates, and also shows gram-positive sepsis. The patient denies any chest pain now. PAST MEDICAL HISTORY: Significant for hypertension, stage IV breast CA with metastasis to the bone, is an invasive ductal carcinoma, being managed at [facility]. PAST SURGICAL HISTORY: Right hip surgery. Last seen one week ago at [place] and does not get any radiation. SOCIAL HISTORY: Denies any history of alcohol abuse. Used recreational drug in the remote. History of . Lives alone. Questionable history of AIDS to the . ALLERGIES: NO KNOWN DRUG ALLERGY. CURRENT MEDICATIONS: Before the patient came in was taking couple of medication. The patient is disoriented, unable to give detailed history. REVIEW OF SYSTEMS: As per HPI. PHYSICAL EXAMINATION: VITAL SIGNS: Temperature afebrile, heart rate 110, blood pressure 144/111. HEENT: PERRLA. Extraocular muscles intact. NECK: Supple. No carotid bruits or thyromegaly. CHEST: Clear to auscultation. HEART: S1 and S2 regular. ABDOMEN: Soft. EXTREMITIES: Clubbing and cyanosis negative. LABORATORY DATA: Blood workup as follows: WBC 25.6, hemoglobin 12.7, hematocrit 13.2, and platelet count 150. Chemistry shows sodium 136, potassium 3.2, chloride 94, carbon dioxide 28, anion gap of 15, BUN 24, and creatinine 1.2. BNP 30,200. Troponin first 1.53, repeat 1.24, repeat 0.96. EKG showed sinus tachycardia, heart rate 111. IMPRESSION: Positive troponin, cannot rule out underlying coronary artery disease. Needs to rule out pulmonary embolism, but the patient cannot go for contrast CT angio. The patient's regular angio shows bilateral pneumonia. Rule out sepsis. WBC elevated to 26,000 within the 12 hours. Blood cultures growing gram positive sepsis. The patient is very restless and appears toxic. RECOMMENDATIONS: We will treat as unstable angina. We will give 1 mg/kg q.12 Lovenox, beta-deandre, aspirin, as well as Plavix. Echo to assess LV function. Once the sepsis controlled, depending upon the trend and hospital course, may consider cardiac catheterization versus the stress test when the patient stabilizes. Now, the patient's WBC is elevated. Supplement electrolytes. Manage aggressively with board spectrum antibiotics. We will follow with you and transfer care tomorrow to Dr. Fuentes. We will also send D-dimer stat to rule out any PE. We will also send 2 sets of blood culture again. We will also send sed rate, blood culture. We will get echo tomorrow. Further recommendation depending on hospital course. In the interim, we will treat her unstable angina with baby aspirin, beta-deandre, Lovenox, and Plavix, and supplement potassium. This positive troponin could be secondary to demand and supply mismatch because the patient's admitting heart rate was high. We will get lipid profile, TSH, hemoglobin A1c, EKG, and troponin in the morning. Thank you Dr. Bravo for providing us the opportunity in taking care of the patient, Denia Strauss. Ignacio Perry MD cc:
[2017-06-17] MEDS ORDERED: Morphine 2 mg/ml ISec IVP PRN ×2 (01:04→06:55)
[2017-06-17] MEDS: Morphine 2 mg/ml ISec IVP PRN ×2 (01:29→05:40)
[2017-06-17] MEDS: Sodium Chloride 0.9% 1,000 ML IV SCH ×3 (01:33→17:30)
[2017-06-17 06:39] LABS: BASO # 0.03 K/mm3 (0.0-2.0); BASO % 0.2 % (0.0-3.0); EOS % 0.1 % (1.5-5.0); GRAN # 13.97 (1.4-6.5); GRAN % 78.5 % (50.0-68.0); HEMOGLOBIN 12.3 g/dL (12.0-16.0); LYMPH # 1.6 (1.2-3.4); LYMPH % 9.2 % (22.0-35.0); MEAN CELL VOLUME 83.8 fl (80.0-105.0); MEAN CORPUSCULAR HEMOGLOBIN 27.2 pg (25.0-35.0); MEAN CORPUSCULAR HGB CONC 32.5 g/dl (31.0-37.0); MEAN PLATELET VOLUME 9.9 fl (7.0-11.0); MONO # 2.1 (0.1-0.6); RBC 4.52 10^6/uL (3.5-6.1); RED CELL DISTRIBUTION WIDTH 14.8 % (11.5-14.5); WHITE BLOOD COUNT 17.8 10^3/ul (4.5-11.0)
[2017-06-17] MEDS: Enoxaparin 80 mg Syringe SC SCH ×2 (06:40→20:02)
--- NOTE | 2017-06-17 07:03 | CP.PCM.PN ---
<Miranda Crum - Last Filed: 06/17/17 16:01> Subjective - Date & Time of Evaluation Date of Evaluation: 06/17/17 Time of Evaluation: 06:51 - Subjective Subjective: Progress notes for Dr. Silva Patient seen examined at bedside. Patient is not tolerating pain as stated per patient. Patient is drowsy after being given 4mg IVP Morphine. Will Adjust medications. Patient denies fever, chills, nausea, vomiting, diarrhea. Objective - Vital Signs/Intake and Output Vital Signs (last 24 hours): Temp Pulse Resp BP Pulse Ox 98.7 F 119 H 20 182/102 H 95 06/17/17 00:00 06/17/17 06:39 06/17/17 00:00 06/17/17 06:39 06/17/17 00:00 Intake and Output: 06/16/17 06/17/17 18:59 06:59 Intake Total 1580 Output Total 2400 Balance -820 - Medications Medications: Current Medications Acetaminophen (Tylenol 325mg Tab) 650 mg PO Q8H PRN PRN Reason: Fever >100.4 F Last Admin: 06/15/17 23:53 Dose: 650 mg Aspirin (Aspirin Chewable) 81 mg PO DAILY [facility] Last Admin: 06/16/17 09:01 Dose: 81 mg Clopidogrel Bisulfate (Plavix) 75 mg PO DAILY [facility] Enoxaparin Sodium (Lovenox) 70 mg SC Q12H [facility] PRN Reason: Protocol Last Admin: 06/17/17 06:40 Dose: 70 mg Gabapentin (Neurontin) 300 mg PO TID [facility] PRN Reason: Protocol Last Admin: 06/16/17 18:21 Dose: Not Given Hydralazine HCl (Apresoline) 10 mg PO QID PRN PRN Reason: for sbp>170 or diastolic>100 Last Admin: 06/17/17 06:39 Dose: 10 mg Doxycycline Hyclate 100 mg/ (Sodium Chloride) 100 mls @ 100 mls/hr IVPB Q12 [facility] PRN Reason: Protocol Last Admin: 06/16/17 22:32 Dose: 100 mls/hr Meropenem/Sodium Chloride (Meropenem 1g/Ns 100ml Ivpb) 1 gm in 100 mls @ 100 mls/hr IVPB Q12H [facility] Stop: 06/23/17 07:31 Last Admin: 06/16/17 20:59 Dose: 100 mls/hr Daptomycin 420 mg/ Sodium (Chloride) 100 mls @ 200 mls/hr IV Q24H [facility] Stop: 06/21/17 10:01 Last Admin: 06/16/17 10:57 Dose: 200 mls/hr Sodium Chloride (Sodium Chloride 0.9%) 1,000 mls @ 150 mls/hr IV .Q6H40M [facility] Last Admin: 06/17/17 01:33 Dose: 150 mls/hr Lorazepam (Ativan) 0.5 mg IVP Q6H PRN; Protocol PRN Reason: Anxiety Last Admin: 06/17/17 05:50 Dose: 0.5 mg Metoprolol Tartrate (Lopressor) 50 mg PO BID [facility] Last Admin: 06/16/17 18:21 Dose: Not Given Morphine Sulfate (Morphine) 2 mg IVP Q4H PRN PRN Reason: Pain, moderate (4-7) Last Admin: 06/17/17 05:40 Dose: 2 mg Oseltamivir Phosphate (Tamiflu) 30 mg PO BID [facility] PRN Reason: Protocol Stop: 06/21/17 06:49 Last Admin: 06/16/17 18:22 Dose: Not Given Oxycodone HCl (Oxycodone Immediate Release Tab) 30 mg PO Q6H PRN PRN Reason: Pain, severe (8-10) Last Admin: 06/16/17 15:00 Dose: 30 mg - Labs Labs: 06/17/17 05:45 06/16/17 06:35 PT 13.0 SECONDS (9.4-12.5) H 06/15/17 14:20 INR 1.14 (0.93-1.08) H 06/15/17 14:20 APTT 29.7 Seconds (25.1-36.5) 06/15/17 14:20 - Constitutional Appears: Non-toxic, No Acute Distress - Head Exam Head Exam: ATRAUMATIC, NORMAL INSPECTION, NORMOCEPHALIC - Eye Exam Eye Exam: EOMI, Normal appearance Pupil Exam: NORMAL ACCOMODATION, PERRL - ENT Exam ENT Exam: Mucous Membranes Dry - Respiratory Exam Respiratory Exam: Clear to Ausculation Bilateral, NORMAL BREATHING PATTERN. absent: Accessory Muscle Use - Cardiovascular Exam Cardiovascular Exam: REGULAR RHYTHM, +S1, +S2 - GI/Abdominal Exam GI & Abdominal Exam: Soft. absent: Tenderness - Extremities Exam Extremities Exam: Full ROM, Normal Capillary Refill, Normal Inspection. absent : Pedal Edema Additional comments: Patient is able to move her left lower extremity. Patient is able to move her right lower extremity, slightly but is unable to lift to gravity because of pain. - Back Exam Back Exam: Full ROM, NORMAL INSPECTION - Neurological Exam Neurological Exam: Awake, CN II-XII Intact, Oriented x3 - Psychiatric Exam Psychiatric exam: Normal Affect, Normal Mood - Skin Skin Exam: Dry, Intact, Normal Color, Warm Assessment and Plan - Assessment and Plan (Free Text) Assessment: Assessment: fever, code sepsis leukocytosis, downtrending lactate, downtrending Blood cultures positive x 2 gram positive cocci UA negative urine tox: positive for opiates ID consult: Dr. Chung CT Chest w/o contrast: right lung patchy ground glass density infiltrates. mild to moderate compression of T12 CT neck: no acute cervical spine fracture. cervical lordosis straightened. anterolisthesis C3 onC4 and C7 on T1. Spondylosis at multiple cervical levels. mild narrowing of thecal sac at C5-6 with left sided spondylitic ridging, posterior disc protrusion C4-5. hypodense fluid visualized in retropharyngeal space. small ground glass density infiltrate in right upper lobe of lung. CT right lower extremity: orthopedic screws on right femoral head and neck. degenerative changes in hip joint with irregularity of articular surface of femoral head. CTA chest: no PE or evidence of lesions CT abdomen/pelvis Daptomycin 420mg Q24H Doxycycline 100mg Q12H Merrem 1 gm IVPB Q12H Oseltamivir 30mg PO BID oxycodone 30mg PO Q6H PRN, severe pain, home med morphine 10mg IVP Q6H PRN, moderate pain Tylenol 650mg PO Q8H PRN, fever mildy elevated transaminitis (AST) Tachycardia EKG 3/5 elevated troponin I, downtrending, likely 2/2 demand ischemia BNP 13459 CXR: bilateral venous congestion, mild right lower lobe infiltrate Cardio consult: Dr. Fuentes consider standing Lasix order if venous congestion remains an issue ASA 81mg PO QD Lovenox 70mg SC BID f/u echo history of htn Metoprolol Tartrate 50mg BID Diet: HHD, soft Prophylaxis Protonix Lovenox 70 SC BID discussed with Dr. Shira Crum DO PGY1 <Ignacio Silva - Last Filed: 06/18/17 12:19> Objective - Vital Signs/Intake and Output Vital Signs (last 24 hours): Temp Pulse Resp BP Pulse Ox 98.5 F 105 H 18 164/95 H 98 06/18/17 11:55 06/18/17 11:55 06/18/17 11:55 06/18/17 11:55 06/18/17 11:55 Intake and Output: 06/18/17 06/18/17 06:59 18:59 Intake Total 2160 Output Total 750 Balance 1410 - Medications Medications: Current Medications Acetaminophen (Tylenol 325mg Tab) 650 mg PO Q8H PRN PRN Reason: Fever >100.4 F Last Admin: 06/15/17 23:53 Dose: 650 mg Aspirin (Aspirin Chewable) 81 mg PO DAILY [facility] Last Admin: 06/18/17 10:07 Dose: 81 mg Clopidogrel Bisulfate (Plavix) 75 mg PO DAILY [facility] Last Admin: 06/18/17 10:09 Dose: 75 mg Docusate Sodium (Colace) 100 mg PO TID [facility] Last Admin: 06/18/17 10:36 Dose: Not Given Enoxaparin Sodium (Lovenox) 70 mg SC Q12H [facility] PRN Reason: Protocol Last Admin: 06/18/17 05:13 Dose: 70 mg Gabapentin (Neurontin) 300 mg PO TID [facility] PRN Reason: Protocol Last Admin: 06/18/17 10:09 Dose: 300 mg Hydralazine HCl (Apresoline) 50 mg PO TID [facility] Last Admin: 06/18/17 10:10 Dose: 50 mg Doxycycline Hyclate 100 mg/ (Sodium Chloride) 100 mls @ 100 mls/hr IVPB Q12 [facility] PRN Reason: Protocol Last Admin: 06/18/17 10:09 Dose: 100 mls/hr Daptomycin 420 mg/ Sodium (Chloride) 100 mls @ 200 mls/hr IV Q24H [facility] Stop: 06/21/17 10:01 Last Admin: 06/17/17 11:38 Dose: 200 mls/hr Sodium Chloride (Sodium Chloride 0.9%) 1,000 mls @ 150 mls/hr IV .Q6H40M [facility] Last Admin: 06/18/17 11:15 Dose: Not Given Meropenem (Merrem Iv 1 Gm Premix) 50 mls @ 100 mls/hr IVPB Q8 [facility] PRN Reason: Protocol Stop: 06/23/17 07:31 Last Admin: 06/18/17 05:12 Dose: 100 mls/hr Lorazepam (Ativan) 0.5 mg IVP Q6H PRN; Protocol PRN Reason: Anxiety Last Admin: 06/18/17 10:09 Dose: 0.5 mg Metoprolol Tartrate (Lopressor) 50 mg PO BID [facility] Last Admin: 06/18/17 10:11 Dose: 50 mg Morphine Sulfate (Morphine) 4 mg IVP Q4H PRN PRN Reason: Pain, moderate (4-7) Last Admin: 06/18/17 08:39 Dose: 4 mg Oxycodone HCl (Oxycodone Immediate Release Tab) 30 mg PO Q6H PRN PRN Reason: Pain, severe (8-10) Last Admin: 06/18/17 05:10 Dose: 30 mg - Labs Labs: 06/18/17 05:44 06/18/17 05:44 PT 13.0 SECONDS (9.4-12.5) H 06/15/17 14:20 INR 1.14 (0.93-1.08) H 06/15/17 14:20 APTT 29.7 Seconds (25.1-36.5) 06/15/17 14:20 Attending/Attestation - Attestation I have personally seen and examined this patient.: Yes I have fully participated in the care of the patient.: Yes I have reviewed all pertinent clinical information, including history, physical exam and plan: Yes Notes (Text): 06/18/17 12:10 Medical record note made by the resident after discussion with my direction and input after the patient was personally seen and examined by me. I have reviewed the chart and agree that the record accurately reflects by personal performance of the history, physical exam, data review, and medical decision-making, in the course for the patient. I have also personally directed the plan of care. 61 year old female with past medical history of metastatic breast cancer presented with complaint of generalized body aches including neck and hip pain. She was found to have sepsis elevated lactate and ground glass opacities on right lung on CT chest. Blood cultures grew Staph aureus .Repest blood cultures are negative. Continue with iv antibiotics as per ID.The source of bacteremia is not clear.CT scan of neck showed fluid in Retropharangeal spACE.We will get ENT evaluation.. She was also found to have elevated troponins; Patient is not having any chest pain She is on aspirin, plavix, metoprolol and lovenox. Anticoagulation can be changed to DVT propphylaxis in 24 hour. Prognosis is guarded.
[2017-06-17 07:09] LABS: ALB/GLOB RATIO 0.8 (1.1-1.8); ALBUMIN 3.4 g/dL (3.0-4.8); ALT/SGPT 22 U/L (7-56); AST/SGOT 53 U/L (14-36); BLOOD UREA NITROGEN 22 mg/dL (7-21); CALCIUM 9.7 mg/dL (8.4-10.5); GFR AFRICAN-AMERICAN > 60; GFR NON-AFRICAN AMERICAN > 60; TROPONIN I 0.26 ng/mL
[2017-06-17] MEDS ORDERED: Meropenem IV 1 gm in NS 50 ML IVPB SCH (07:25)
[2017-06-17] MEDS ORDERED: Potassium Chloride 40 mEq/30 ml LIQ UD PO ONE (07:48)
[2017-06-17 08:40] LABS: BASO # 0.02 K/mm3 (0.0-2.0); BASO % 0.1 % (0.0-3.0); GRAN # 13.64 (1.4-6.5); GRAN % 77.4 % (50.0-68.0); HEMOGLOBIN 12.1 g/dL (12.0-16.0); LYMPH # 1.8 (1.2-3.4); MEAN CELL VOLUME 83.9 fl (80.0-105.0); MEAN CORPUSCULAR HGB CONC 32.2 g/dl (31.0-37.0); MEAN PLATELET VOLUME 9.7 fl (7.0-11.0); MONO # 2.2 (0.1-0.6); MONO % 12.5 % (1.0-6.0); RBC 4.48 10^6/uL (3.5-6.1); RED CELL DISTRIBUTION WIDTH 14.8 % (11.5-14.5); WHITE BLOOD COUNT 17.6 10^3/ul (4.5-11.0)
--- NOTE | 2017-06-17 09:48 | CARD ---
APPROVED REPORT EKG Measurement Heart [id number] <Conclusion> Sinus tachycardia Moderate voltage criteria for LVH, may be normal variant ST abnormality, nonspecific Abnormal ECG
[2017-06-17] MEDS: oxyCODONE 30 mg Immediate Release Tab PO PRN ×3 (10:01→22:37)
[2017-06-17] MEDS: Morphine 4 mg/ml ISec IVP PRN ×2 (10:09→23:20)
--- NOTE | 2017-06-17 15:34 | CP.PCM.PN ---
Subjective - Date & Time of Evaluation Date of Evaluation: 06/17/17 Time of Evaluation: 11:10 - Subjective Subjective: Patient still feels ill, no fevers overnight, weak-looking. Objective - Vital Signs/Intake and Output Vital Signs (last 24 hours): Temp Pulse Resp BP Pulse Ox 101 F H 114 H 20 144/111 H 91 L 06/16/17 00:53 06/16/17 10:55 06/16/17 06:34 06/16/17 06:00 06/16/17 02:00 Intake and Output: 06/16/17 06/16/17 06:59 18:59 Intake Total 250 Output Total 1500 Balance -1250 - Medications Medications: Current Medications Acetaminophen (Tylenol 325mg Tab) 650 mg PO Q8H PRN PRN Reason: Fever >100.4 F Last Admin: 06/15/17 23:53 Dose: 650 mg Aspirin (Aspirin Chewable) 81 mg PO DAILY [facility] Last Admin: 06/16/17 09:01 Dose: 81 mg Clopidogrel Bisulfate (Plavix) 75 mg PO DAILY [facility] Enoxaparin Sodium (Lovenox) 70 mg SC Q12H [facility] PRN Reason: Protocol Last Admin: 06/16/17 06:26 Dose: 70 mg Gabapentin (Neurontin) 300 mg PO TID [facility] PRN Reason: Protocol Last Admin: 06/16/17 15:01 Dose: 300 mg Hydralazine HCl (Apresoline) 10 mg PO QID PRN PRN Reason: for sbp>170 or diastolic>100 Doxycycline Hyclate 100 mg/ (Sodium Chloride) 100 mls @ 100 mls/hr IVPB Q12 [facility] PRN Reason: Protocol Last Admin: 06/16/17 08:10 Dose: 100 mls/hr Meropenem/Sodium Chloride (Meropenem 1g/Ns 100ml Ivpb) 1 gm in 100 mls @ 100 mls/hr IVPB Q12H [facility] Stop: 06/23/17 07:31 Last Admin: 06/16/17 08:59 Dose: 100 mls/hr Daptomycin 420 mg/ Sodium (Chloride) 100 mls @ 200 mls/hr IV Q24H [facility] Stop: 06/21/17 10:01 Last Admin: 06/16/17 10:57 Dose: 200 mls/hr Lorazepam (Ativan) 0.5 mg IVP Q6H PRN; Protocol PRN Reason: Anxiety Last Admin: 06/16/17 14:26 Dose: 0.5 mg Metoprolol Tartrate (Lopressor) 50 mg PO BID [facility] Last Admin: 06/16/17 10:55 Dose: 50 mg Morphine Sulfate (Morphine) 10 mg IVP Q4H PRN PRN Reason: Pain, severe (8-10) Oseltamivir Phosphate (Tamiflu) 30 mg PO BID [facility] PRN Reason: Protocol Stop: 06/21/17 06:49 Last Admin: 06/16/17 09:01 Dose: 30 mg Oxycodone HCl (Oxycodone Immediate Release Tab) 30 mg PO Q6H PRN PRN Reason: Pain, severe (8-10) Last Admin: 06/16/17 15:00 Dose: 30 mg - Labs Labs: 06/16/17 06:35 06/16/17 06:35 PT 13.0 SECONDS (9.4-12.5) H 06/15/17 14:20 INR 1.14 (0.93-1.08) H 06/15/17 14:20 APTT 29.7 Seconds (25.1-36.5) 06/15/17 14:20 - Constitutional Appears: Chronically Ill - Head Exam Head Exam: NORMAL INSPECTION - Neck Exam Neck Exam: absent: Meningismus - Respiratory Exam Respiratory Exam: Decreased Breath Sounds - Cardiovascular Exam Cardiovascular Exam: +S1, +S2 - GI/Abdominal Exam GI & Abdominal Exam: Soft. absent: Tenderness Assessment and Plan - Assessment and Plan (Free Text) Plan: Assessment Sepsis due to Staph aureus bacteremia, source to be determined; R/O vegetations on the heart valves, R/O pneumonitis breast cancer with bone metastases on chemotherapy HTN osteoporosis former drug user Plan continue Daptomycin, Merrem, Doxycycline day 2; repeat blood cx are negative so far; follow up sensitivities of the Staph aureus; follow up 2D echo; may need to image the neck if no source of the bacteremia is found with the initial work up rapid flu test is negative will continue to monitor clinically
--- NOTE | 2017-06-17 17:46 | PN ---
DATE: This is followup to the initial consult of Dr. Perry. SUBJECTIVE: The patient is a 61 years old female who has history of metastatic breast carcinoma, who was initially admitted because of chest pain. The patient at this time is lethargic and confused and does not answer my questions. The patient has been getting chemoradiation therapy at the [facility] according to admitting notes from the emergency room physician. CT angio of the chest was performed yesterday and was negative for pulmonary embolism. PHYSICAL EXAMINATION: VITAL SIGNS: Blood pressure 180/108, heart rate 116, temperature 98.7, respirations 20. HEENT: Normocephalic. CHEST: Diminished breath sounds at the bases. HEART: S1 and S2, regular. ABDOMEN: Soft. EXTREMITIES: No edema. LABORATORY DATA: Today, SMA-7: Sodium 138, potassium 3.5, chloride 103, CO2 of 26. Glucose 112. BUN 22, creatinine 0.8. Calcium is within normal limits. Troponin 0.26. Hemoglobin and hematocrit within normal limits, white count 17.6, platelet count 147,000. Most recent EKG today revealed sinus tachycardia with moderate criteria for LVH with nonspecific ST-segment changes. Cervical spine CT scan, no acute cervical spine fracture, cervical lordosis is straightened, spondylosis visualized at multiple cervical levels, posterior disk protrusion at C4-C5 was found with narrowing of the thecal sac, bilateral neural foramina identified at C4-C5 and C5-C6 with right neural foramina narrowing at C7-T1. CT scan of the abdomen and pelvis without p.o. or IV contrast revealed cholelithiasis, borderline splenomegaly, hypodense probable cyst at the lower pole of the right kidney, hyperdense appendicolith, [id number] compression fracture of T4 vertebral body. ASSESSMENT: 1. Metastatic breast carcinoma. 2. Borderline troponin elevation, consider non-ST elevation myocardial infarction. 3. Uncontrolled hypertension. 4. Sinus tachycardia which is physiologic response to the patient's current pain and possible underlying sepsis. RECOMMENDATIONS: Continue current IV daptomycin and IV doxycycline. Continue Lopressor 50 mg once a day and therapeutic subcutaneous Lovenox q. 12 hours. Continue IV meropenem. Continue Plavix 75 mg once a day. Increase hydralazine to 50 mg q. 8 hours. Continue aspirin 81 mg once a day. Overall prognosis is grief and the patient is not a suitable candidate for invasive cardiac workup. Alessandro Fuentes MD
--- NOTE | 2017-06-17 18:04 | CARD ---
APPROVED REPORT EXAM: Two-dimensional and M-mode echocardiogram with Doppler and color Doppler. INDICATION Infection:Rule out subacute bacterial endocarditis LVFC 2D DIMENSIONS Left Atrium (2D)4.9 (1.6-4.0cm)IVSd1.1 (0.7-1.1cm) LVDd4.8 (3.9-5.9cm)PWd1.2 (0.7-1.1cm) LVEF (%)40.0 (>50%) M-Mode DIMENSIONS Aortic Root3.10 (2.2-3.7cm)Aortic Cusp Exc.1.80 (1.5-2.0cm) Aortic Valve AoV Peak Ozknbbiw688.0cm/Meghana Peak GR.9mmHg Mitral Valve MV E Hiuwlukp16.9cm/sMV A Foxqnhzi91.8cm/sE/A ratio0.9 TDI Lateral E' Peak V9.26cm/sMedial E' Peak V5.56cm/sE/Lateral E'9.1 E/Medial E'15.1 Pulmonary Valve PV Peak Bcnqbwsp76.6cm/sPV Peak Grad.2mmHg Tricuspid Valve TR Peak [id number]/sRAP [id number] Peak Gr.24mmHg [id number] LEFT VENTRICLE The left ventricle is normal size. There is normal left ventricular wall thickness. The systolic function is moderately impaired. There is global hypokinesis of the left ventricle. Transmitral Doppler flow pattern is Grade I-abnormal relaxation pattern. RIGHT VENTRICLE The right ventricle is normal size. There is normal right ventricular wall thickness. The right ventricular systolic function is normal. ATRIA The left atrium is mildly dilated. The right atrium is mildly dilated. AORTIC VALVE The aortic valve is not well visualized. No aortic regurgitation is present. There is no aortic valvular stenosis. MITRAL VALVE The mitral valve is normal in structure. Mitral regurgitation is mild. There is no mitral valve stenosis. TRICUSPID VALVE There is mild pulmonary hypertension. GREAT VESSELS The aortic root is normal in size. PERICARDIAL EFFUSION There is no pericardial effusion. <Conclusion> The left ventricle is normal size. There is normal left ventricular wall thickness. The systolic function is moderately impaired. There is global hypokinesis of the left ventricle. Transmitral Doppler flow pattern is Grade I-abnormal relaxation pattern. Mitral regurgitation is mild. There is mild pulmonary hypertension. No vegitation seen
[2017-06-17] MEDS: Meropenem IV 1 gm in NS 50 ML IVPB SCH (21:41)
[2017-06-18] MEDS: Sodium Chloride 0.9% 1,000 ML IV SCH ×4 (01:48→18:19)
[2017-06-18] MEDS: Morphine 4 mg/ml ISec IVP PRN ×2 (04:20→08:39)
[2017-06-18] MEDS: oxyCODONE 30 mg Immediate Release Tab PO PRN ×2 (05:10→21:27)
[2017-06-18] MEDS: Meropenem IV 1 gm in NS 50 ML IVPB SCH ×2 (05:12→15:11)
[2017-06-18] MEDS: Enoxaparin 80 mg Syringe SC SCH (05:13)
[2017-06-18 07:02] LABS: TROPONIN I 0.09 ng/mL
[2017-06-18 07:04] LABS: ALB/GLOB RATIO 0.8 (1.1-1.8); ALT/SGPT 26 U/L (7-56); AST/SGOT 51 U/L (14-36); BLOOD UREA NITROGEN 19 mg/dL (7-21); CALCIUM 9.5 mg/dL (8.4-10.5); GFR AFRICAN-AMERICAN > 60; GFR NON-AFRICAN AMERICAN > 60
[2017-06-18 07:43] LABS: BASO # 0.04 K/mm3 (0.0-2.0); BASO % 0.3 % (0.0-3.0); EOS # 0.1 (0.0-0.7); EOS % 0.9 % (1.5-5.0); GRAN # 9.31 (1.4-6.5); GRAN % 67.5 % (50.0-68.0); LYMPH # 2.1 (1.2-3.4); LYMPH % 15.3 % (22.0-35.0); MEAN CELL VOLUME 85.6 fl (80.0-105.0); MEAN CORPUSCULAR HGB CONC 31.5 g/dl (31.0-37.0); MEAN PLATELET VOLUME 10.3 fl (7.0-11.0); MONO # 2.2 (0.1-0.6); RBC 4.45 10^6/uL (3.5-6.1); RED CELL DISTRIBUTION WIDTH 15.2 % (11.5-14.5); WHITE BLOOD COUNT 13.8 10^3/ul (4.5-11.0)
--- NOTE | 2017-06-18 12:11 | CP.PCM.PN ---
<Miranda Crum - Last Filed: 06/18/17 12:21> Subjective - Date & Time of Evaluation Date of Evaluation: 06/18/17 Time of Evaluation: 12:07 - Subjective Subjective: Progress note for Dr. Silva Patient seen and examined at bedside. Patient asks for pain medication and appears less drowsy than yesterday. Patient denies fever, chills, nausea, vomiting, diarrhea. Patient admits to pain and states that "she just wants to go to sleep" Objective - Vital Signs/Intake and Output Vital Signs (last 24 hours): Temp Pulse Resp BP Pulse Ox 98.5 F 105 H 18 164/95 H 98 06/18/17 11:55 06/18/17 11:55 06/18/17 11:55 06/18/17 11:55 06/18/17 11:55 Intake and Output: 06/18/17 06/18/17 06:59 18:59 Intake Total 2160 Output Total 750 Balance 1410 - Medications Medications: Current Medications Acetaminophen (Tylenol 325mg Tab) 650 mg PO Q8H PRN PRN Reason: Fever >100.4 F Last Admin: 06/15/17 23:53 Dose: 650 mg Aspirin (Aspirin Chewable) 81 mg PO DAILY [facility] Last Admin: 06/18/17 10:07 Dose: 81 mg Clopidogrel Bisulfate (Plavix) 75 mg PO DAILY [facility] Last Admin: 06/18/17 10:09 Dose: 75 mg Docusate Sodium (Colace) 100 mg PO TID [facility] Last Admin: 06/18/17 10:36 Dose: Not Given Enoxaparin Sodium (Lovenox) 70 mg SC Q12H [facility] PRN Reason: Protocol Last Admin: 06/18/17 05:13 Dose: 70 mg Gabapentin (Neurontin) 300 mg PO TID [facility] PRN Reason: Protocol Last Admin: 06/18/17 10:09 Dose: 300 mg Hydralazine HCl (Apresoline) 50 mg PO TID [facility] Last Admin: 06/18/17 10:10 Dose: 50 mg Doxycycline Hyclate 100 mg/ (Sodium Chloride) 100 mls @ 100 mls/hr IVPB Q12 [facility] PRN Reason: Protocol Last Admin: 06/18/17 10:09 Dose: 100 mls/hr Daptomycin 420 mg/ Sodium (Chloride) 100 mls @ 200 mls/hr IV Q24H [facility] Stop: 06/21/17 10:01 Last Admin: 06/17/17 11:38 Dose: 200 mls/hr Sodium Chloride (Sodium Chloride 0.9%) 1,000 mls @ 150 mls/hr IV .Q6H40M [facility] Last Admin: 06/18/17 11:15 Dose: Not Given Meropenem (Merrem Iv 1 Gm Premix) 50 mls @ 100 mls/hr IVPB Q8 [facility] PRN Reason: Protocol Stop: 06/23/17 07:31 Last Admin: 06/18/17 05:12 Dose: 100 mls/hr Lorazepam (Ativan) 0.5 mg IVP Q6H PRN; Protocol PRN Reason: Anxiety Last Admin: 06/18/17 10:09 Dose: 0.5 mg Metoprolol Tartrate (Lopressor) 50 mg PO BID [facility] Last Admin: 06/18/17 10:11 Dose: 50 mg Morphine Sulfate (Morphine) 4 mg IVP Q4H PRN PRN Reason: Pain, moderate (4-7) Last Admin: 06/18/17 08:39 Dose: 4 mg Oxycodone HCl (Oxycodone Immediate Release Tab) 30 mg PO Q6H PRN PRN Reason: Pain, severe (8-10) Last Admin: 06/18/17 05:10 Dose: 30 mg - Labs Labs: 06/18/17 05:44 06/18/17 05:44 PT 13.0 SECONDS (9.4-12.5) H 06/15/17 14:20 INR 1.14 (0.93-1.08) H 06/15/17 14:20 APTT 29.7 Seconds (25.1-36.5) 06/15/17 14:20 - Constitutional Appears: Non-toxic, No Acute Distress - Head Exam Head Exam: ATRAUMATIC, NORMAL INSPECTION, NORMOCEPHALIC - Eye Exam Eye Exam: EOMI, Normal appearance Pupil Exam: NORMAL ACCOMODATION, PERRL - ENT Exam ENT Exam: Mucous Membranes Moist, Normal Exam - Neck Exam Neck Exam: Full ROM. absent: Lymphadenopathy, Thyromegaly - Respiratory Exam Respiratory Exam: Accessory Muscle Use, Clear to Ausculation Bilateral, NORMAL BREATHING PATTERN - Cardiovascular Exam Cardiovascular Exam: REGULAR RHYTHM, +S1, +S2 - GI/Abdominal Exam GI & Abdominal Exam: Soft, Normal Bowel Sounds. absent: Tenderness - Extremities Exam Extremities Exam: Normal Inspection. absent: Pedal Edema Additional comments: patient able to flex hips in bed. - Back Exam Back Exam: Full ROM, NORMAL INSPECTION - Neurological Exam Neurological Exam: Alert, Awake, CN II-XII Intact, Oriented x3 - Psychiatric Exam Psychiatric exam: Normal Affect, Normal Mood - Skin Skin Exam: Dry, Intact, Normal Color, Warm Assessment and Plan - Assessment and Plan (Free Text) Assessment: fever, code sepsis leukocytosis, downtrending lactate, downtrending Blood cultures positive x 2 gram positive cocci UA negative urine tox: positive for opiates ID consult: Dr. Chung CT Chest w/o contrast: right lung patchy ground glass density infiltrates. mild to moderate compression of T12 CT neck: no acute cervical spine fracture. cervical lordosis straightened. anterolisthesis C3 onC4 and C7 on T1. Spondylosis at multiple cervical levels. mild narrowing of thecal sac at C5-6 with left sided spondylitic ridging, posterior disc protrusion C4-5. hypodense fluid visualized in retropharyngeal space. small ground glass density infiltrate in right upper lobe of lung. CT right lower extremity: orthopedic screws on right femoral head and neck. degenerative changes in hip joint with irregularity of articular surface of femoral head. CTA chest: no PE or evidence of lesions CT abdomen/pelvis Daptomycin 420mg Q24H Doxycycline 100mg Q12H Merrem 1 gm IVPB Q12H Oseltamivir 30mg PO BID oxycodone 30mg PO Q6H PRN, severe pain, home med Morphine 1 mg IV Q6H PRN pain Tylenol 650mg PO Q8H PRN, fever ENT consult Dr. Dover ID consult: DR. Chung Neurosurgery consult: Dr. Mederos f/u Limited bone scan mildy elevated transaminitis (AST) Tachycardia EKG 3/5 elevated troponin I, downtrending, likely 2/2 demand ischemia BNP [id number] CXR: bilateral venous congestion, mild right lower lobe infiltrate Cardio consult: Dr. Fuentes consider standing Lasix order if venous congestion remains an issue ASA 81mg PO QD Lovenox 70mg SC BID 06/18 Echo: LVF normal size, normal LV wall thickness, systolic function is moderately impaired, global hypokinesis of left ventricle, Grade I abnormal relaxation, mild mitral regurgitation, mild pulmonary HTN, no vegetation history of htn Metoprolol Tartrate 50mg BID Diet: HHD, soft Prophylaxis Protonix Lovenox 40 SC daily discussed with Dr. Shira Crum DO PGY1 <Ignacio Silva - Last Filed: 06/19/17 14:14> Objective - Vital Signs/Intake and Output Vital Signs (last 24 hours): Temp Pulse Resp BP Pulse Ox 98.1 F 83 20 140/77 97 06/19/17 11:29 06/19/17 11:29 06/19/17 11:29 06/19/17 11:29 06/19/17 06:00 Intake and Output: 06/19/17 06/19/17 06:59 18:59 Intake Total 4200 Output Total 1200 Balance 3000 - Medications Medications: Current Medications Acetaminophen (Tylenol 325mg Tab) 650 mg PO Q8H PRN PRN Reason: Fever >100.4 F Last Admin: 06/15/17 23:53 Dose: 650 mg Aspirin (Aspirin Chewable) 81 mg PO DAILY [facility] Last Admin: 06/19/17 09:26 Dose: 81 mg Clopidogrel Bisulfate (Plavix) 75 mg PO DAILY [facility] Last Admin: 06/19/17 09:26 Dose: 75 mg Docusate Sodium (Colace) 100 mg PO TID [facility] Last Admin: 06/19/17 09:26 Dose: 100 mg Enoxaparin Sodium (Lovenox) 40 mg SC DAILY [facility] PRN Reason: Protocol Last Admin: 06/19/17 09:25 Dose: 40 mg Fentanyl (Duragesic) 1 patch TD Q72H [facility] Last Admin: 06/18/17 14:22 Dose: 1 patch Gabapentin (Neurontin) 300 mg PO TID [facility] PRN Reason: Protocol Last Admin: 06/19/17 09:26 Dose: 300 mg Hydralazine HCl (Apresoline) 50 mg PO TID [facility] Last Admin: 06/19/17 09:30 Dose: 50 mg Nafcillin Sodium 2 gm/ Sodium (Chloride) 100 mls @ 100 mls/hr IVPB Q6 [facility] PRN Reason: Protocol Stop: 07/17/17 00:01 Last Admin: 06/19/17 05:34 Dose: 100 mls/hr Lorazepam (Ativan) 0.5 mg IVP Q6H PRN; Protocol PRN Reason: Anxiety Last Admin: 06/19/17 09:15 Dose: 0.5 mg Metoprolol Tartrate (Lopressor) 50 mg PO BID [facility] Last Admin: 06/19/17 09:30 Dose: 50 mg Morphine Sulfate (Morphine) 1 mg IVP Q4H PRN PRN Reason: Pain, moderate (4-7) Last Admin: 06/19/17 03:43 Dose: 1 mg Oxycodone HCl (Oxycodone Immediate Release Tab) 30 mg PO Q6H PRN PRN Reason: Pain, severe (8-10) Last Admin: 06/19/17 05:30 Dose: 30 mg - Labs Labs: 06/19/17 07:00 06/19/17 07:00 PT 13.0 SECONDS (9.4-12.5) H 06/15/17 14:20 INR 1.14 (0.93-1.08) H 06/15/17 14:20 APTT 29.7 Seconds (25.1-36.5) 06/15/17 14:20 Attending/Attestation - Attestation I have personally seen and examined this patient.: Yes I have fully participated in the care of the patient.: Yes I have reviewed all pertinent clinical information, including history, physical exam and plan: Yes Notes (Text): 06/19/17 14:12 Medical record note made by the resident after discussion with my direction and input after the patient was personally seen and examined by me. I have reviewed the chart and agree that the record accurately reflects by personal performance of the history, physical exam, data review, and medical decision-making, in the course for the patient. I have also personally directed the plan of care. 61 year old female with past medical history of metastatic breast cancer presented with complaint of generalized body aches including neck and hip pain. She was found to have sepsis elevated lactate and ground glass opacities on right lung on CT chest. Blood cultures grew Staph aureus .Repeat blood cultures are negative. Patient was evaluated by ENT, no retropharngeal abscess was noted.Patient antibiotics has been changed to Nafcillin. She was also found to have elevated troponins; Patient is not having any chest pain She is on aspirin, plavix, metoprolol . Pain medications has been adjusted. Prognosis is guarded. 06/19/17 14:14
[2017-06-18] MEDS: Morphine 2 mg/ml ISec IVP PRN (20:41)
--- NOTE | 2017-06-18 22:31 | PN ---
DATE: 06/18/2017 SUBJECTIVE: The patient is in bed, in no acute distress, nontoxic, was seen early this morning in room 372, bed 1. PHYSICAL EXAMINATION: VITAL SIGNS: Temperature is 98, blood pressure is 160/90, respiratory rate of 18. HEENT: Examination of HEENT is unremarkable. NECK: Supple. LUNGS: Have decreased breath sounds. HEART: Normal S1, S2. ABDOMEN: Soft, nontender. LABORATORY DATA: Laboratory examination reveals a white count of 13,800, hemoglobin of 12, platelets of 195. Chemistries reveals a BUN of 19, creatinine of 0.7. Troponin is down to 0.9 and procalcitonin is noted at 1.09. Urinalysis is reviewed and opiate screen is positive and influenza is negative. Urine Legionella is negative. Blood cultures are positive for Staph aureus from 06/15/2017. They are negative on 06/16/2017. The Staph aureus reported to be oxacillin sensitive with a vancomycin HONEY of 0.5. Review of orders reveals the patient to be on daptomycin and doxycycline and meropenem and the patient has no known allergies. ASSESSMENT AND PLAN: A 61-year-old female, who was seen early this morning in room 372, bed one with sepsis with sensitive Staphylococcus aureus bacteremia, source is unclear in a patient with breast cancer with bone metastases, on chemotherapy and hypertension, osteoporosis and it is pansensitive Staphylococcus aureus. The repeat blood cultures from the following day they are negative. The patient did have an echo, which no vegetations are seen. The patient did have a CAT scan of the lower extremity. Degenerative changes in the right hip. No evidence of acute fracture. The patient also had a CAT scan of the chest. No evidence of pulmonary emboli. Patchy infiltrates in the bases. T12 compression fracture, age uncertain. On 06/15/2017, the patient had another CT of the chest, read by Dr. Stephon Talley. We will discontinue the daptomycin. Discontinue the doxycycline. Discontinue the meropenem. We will use nafcillin for a sensitive Staphylococcus aureus bacteremia, source unclear, at 2 g IV q. 6 hours. Duration of the either and nafcillin is unclear. At this time, the patient's repeat blood cultures from 06/16/2017 are no growth, which makes today the day #3 of antibiotics, will need at least 14 to 21 days. The patient does have a sed rate of 71 with a C-reactive protein will be ordered. Concerned about the back pain and most likely will need at least 4 weeks of antibiotics. We will follow with you. Human immunodeficiency virus test is also pending. Jamel Valencia MD
[2017-06-18] MEDS: Nafcillin 2 GM in Sodium Chloride 0.9% 100 ML IVPB SCH (23:54)
[2017-06-19] MEDS: Sodium Chloride 0.9% 1,000 ML IV SCH ×3 (02:25→21:32)
[2017-06-19] MEDS: Morphine 2 mg/ml ISec IVP PRN (03:43)
[2017-06-19] MEDS: oxyCODONE 30 mg Immediate Release Tab PO PRN ×2 (05:30→22:57)
[2017-06-19] MEDS: Nafcillin 2 GM in Sodium Chloride 0.9% 100 ML IVPB SCH ×4 (05:34→23:00)
[2017-06-19 07:14] LABS: BASO # 0.03 K/mm3 (0.0-2.0); BASO % 0.3 % (0.0-3.0); EOS # 0.2 (0.0-0.7); EOS % 1.7 % (1.5-5.0); GRAN # 7.08 (1.4-6.5); GRAN % 60.2 % (50.0-68.0); HEMOGLOBIN 11.3 g/dL (12.0-16.0); LYMPH # 2.3 (1.2-3.4); LYMPH % 19.9 % (22.0-35.0); MEAN CELL VOLUME 84.8 fl (80.0-105.0); MEAN CORPUSCULAR HEMOGLOBIN 26.8 pg (25.0-35.0); MEAN CORPUSCULAR HGB CONC 31.6 g/dl (31.0-37.0); MEAN PLATELET VOLUME 9.6 fl (7.0-11.0); MONO # 2.1 (0.1-0.6); MONO % 17.9 % (1.0-6.0); RBC 4.22 10^6/uL (3.5-6.1); RED CELL DISTRIBUTION WIDTH 15.6 % (11.5-14.5); WHITE BLOOD COUNT 11.8 10^3/ul (4.5-11.0)
[2017-06-19 07:47] LABS: ALB/GLOB RATIO 0.8 (1.1-1.8); ALBUMIN 2.9 g/dL (3.0-4.8); ALT/SGPT 33 U/L (7-56); AST/SGOT 81 U/L (14-36); BLOOD UREA NITROGEN 13 mg/dL (7-21); CALCIUM 9.3 mg/dL (8.4-10.5); GFR AFRICAN-AMERICAN > 60; GFR NON-AFRICAN AMERICAN > 60
--- NOTE | 2017-06-19 08:07 | CON ---
DATE: 06/18/2017 HISTORY OF PRESENT ILLNESS: This is a 61-year-old female who has been treated at [facility] for breast carcinoma, was admitted with severe pain and evaluations for possible sepsis as per ID. The patient is a poor historian who is sitting in bed with attendant, complaining of severe pain and is unable to lift herself. The patient denies any type of dysphagia or throat discomfort. The patient is tolerating p.o. liquids, has a very poor appetite and is a poor historian with verbal responses of pain only. A CAT scan on admission was done and a finding of no acute cervical spine fractures. The cervical lordosis is straightened. There is a slight anterolisthesis of C3 over C4 and C7 over T1. Hypertrophic degenerative changes are identified. Hypertrophic changes with possible small accumulation, mild. Aortic arch, there is retropharyngeal space, hypodense fluid is visualized within the retropharyngeal space, which may be infectious or inflammatory. On clinical exam, oropharynx was noted to be within a normal shape and size without swelling of the retropharyngeal. No cervical adenopathy noted. TMs were noted to be clear and intact. Nasal mucosa was moist and warm. No adenopathy in level 2, 3 and 4 of the cervical chains. This is an ears, nose and throat evaluation on this patient with noted questionable retropharyngeal possible abscess. No clinical signs of abscess noted. The patient's level of pain, recommendations of a bone scan for possible metastatic breast metastasis for possible cause for such severe pain. The patient is being treated by Pain Management with multiple pain medications. En Dover DO
[2017-06-19] MEDS ORDERED: Potassium Chloride 40 mEq/30 ml LIQ UD PO ONE (08:49)
[2017-06-19] MEDS: Enoxaparin 40 mg Syringe SC SCH (09:25)
--- NOTE | 2017-06-19 12:07 | CP.PCM.PN ---
<KikeChristi - Last Filed: 06/19/17 12:04> Subjective - Date & Time of Evaluation Date of Evaluation: 06/19/17 Time of Evaluation: 12:04 - Subjective Subjective: ENT PT s&e. Pt is lethargic. Minimal response to verbal commands and pain stimuli. Objective - Vital Signs/Intake and Output Vital Signs (last 24 hours): Temp Pulse Resp BP Pulse Ox 98.1 F 83 20 140/77 97 06/19/17 11:29 06/19/17 11:29 06/19/17 11:29 06/19/17 11:29 06/19/17 06:00 Intake and Output: 06/19/17 06/19/17 06:59 18:59 Intake Total 4200 Output Total 1200 Balance 3000 - Medications Medications: Current Medications Acetaminophen (Tylenol 325mg Tab) 650 mg PO Q8H PRN PRN Reason: Fever >100.4 F Last Admin: 06/15/17 23:53 Dose: 650 mg Aspirin (Aspirin Chewable) 81 mg PO DAILY [facility] Last Admin: 06/19/17 09:26 Dose: 81 mg Clopidogrel Bisulfate (Plavix) 75 mg PO DAILY [facility] Last Admin: 06/19/17 09:26 Dose: 75 mg Docusate Sodium (Colace) 100 mg PO TID [facility] Last Admin: 06/19/17 09:26 Dose: 100 mg Enoxaparin Sodium (Lovenox) 40 mg SC DAILY [facility] PRN Reason: Protocol Last Admin: 06/19/17 09:25 Dose: 40 mg Fentanyl (Duragesic) 1 patch TD Q72H [facility] Last Admin: 06/18/17 14:22 Dose: 1 patch Gabapentin (Neurontin) 300 mg PO TID [facility] PRN Reason: Protocol Last Admin: 06/19/17 09:26 Dose: 300 mg Hydralazine HCl (Apresoline) 50 mg PO TID [facility] Last Admin: 06/19/17 09:30 Dose: 50 mg Nafcillin Sodium 2 gm/ Sodium (Chloride) 100 mls @ 100 mls/hr IVPB Q6 [facility] PRN Reason: Protocol Stop: 07/17/17 00:01 Last Admin: 06/19/17 05:34 Dose: 100 mls/hr Potassium Chloride (Potassium Chloride 10 Meq/100 Ml) 10 meq in 100 mls @ 50 mls/hr IVPB Q2H [facility] Stop: 06/19/17 12:59 Last Admin: 06/19/17 11:57 Dose: 50 mls/hr Lorazepam (Ativan) 0.5 mg IVP Q6H PRN; Protocol PRN Reason: Anxiety Last Admin: 06/19/17 09:15 Dose: 0.5 mg Metoprolol Tartrate (Lopressor) 50 mg PO BID [facility] Last Admin: 06/19/17 09:30 Dose: 50 mg Morphine Sulfate (Morphine) 1 mg IVP Q4H PRN PRN Reason: Pain, moderate (4-7) Last Admin: 06/19/17 03:43 Dose: 1 mg Oxycodone HCl (Oxycodone Immediate Release Tab) 30 mg PO Q6H PRN PRN Reason: Pain, severe (8-10) Last Admin: 06/19/17 05:30 Dose: 30 mg - Labs Labs: 06/19/17 07:00 06/19/17 07:00 PT 13.0 SECONDS (9.4-12.5) H 06/15/17 14:20 INR 1.14 (0.93-1.08) H 06/15/17 14:20 APTT 29.7 Seconds (25.1-36.5) 06/15/17 14:20 - Constitutional Appears: Chronically Ill - Head Exam Head Exam: ATRAUMATIC, NORMAL INSPECTION, NORMOCEPHALIC - Eye Exam Eye Exam: EOMI, Normal appearance, PERRL Pupil Exam: NORMAL ACCOMODATION, PERRL - ENT Exam ENT Exam: Mucous Membranes Moist, Normal Exam - Neck Exam Neck Exam: Tenderness. absent: Full ROM, Lymphadenopathy - Respiratory Exam Respiratory Exam: NORMAL BREATHING PATTERN - Cardiovascular Exam Cardiovascular Exam: REGULAR RHYTHM, +S1, +S2. absent: Murmur - GI/Abdominal Exam GI & Abdominal Exam: Soft, Normal Bowel Sounds. absent: Distended, Tenderness - Extremities Exam Extremities Exam: Normal Inspection - Neurological Exam Neurological Exam: Altered, Awake. absent: Alert, Oriented x3 - Skin Skin Exam: Dry, Intact, Normal Color, Warm Assessment and Plan - Assessment and Plan (Free Text) Assessment: Cervical spondylisis -F/U Bone scan DW ENT attending <Meliton Faulkner F - Last Filed: 06/19/17 23:32> Subjective - Date & Time of Evaluation Time of Evaluation: 14:00 - Subjective Subjective: Patient more awake when seen later in the day Objective - Vital Signs/Intake and Output Vital Signs (last 24 hours): Temp Pulse Resp BP Pulse Ox 97.6 F 102 H 20 162/84 H 97 06/19/17 18:00 06/19/17 18:12 06/19/17 18:00 06/19/17 18:12 06/19/17 18:00 Intake and Output: 06/19/17 06/20/17 18:59 06:59 Intake Total 240 300 Output Total 1000 900 Balance -760 -600 - Medications Medications: Current Medications Acetaminophen (Tylenol 325mg Tab) 650 mg PO Q8H PRN PRN Reason: Fever >100.4 F Last Admin: 06/15/17 23:53 Dose: 650 mg Aspirin (Aspirin Chewable) 81 mg PO DAILY [facility] Last Admin: 06/19/17 09:26 Dose: 81 mg Clopidogrel Bisulfate (Plavix) 75 mg PO DAILY [facility] Last Admin: 06/19/17 09:26 Dose: 75 mg Docusate Sodium (Colace) 100 mg PO TID [facility] Last Admin: 06/19/17 18:11 Dose: 100 mg Enoxaparin Sodium (Lovenox) 40 mg SC DAILY [facility] PRN Reason: Protocol Last Admin: 06/19/17 09:25 Dose: 40 mg Fentanyl (Duragesic) 1 patch TD Q72H [facility] Last Admin: 06/18/17 14:22 Dose: 1 patch Gabapentin (Neurontin) 300 mg PO TID [facility] PRN Reason: Protocol Last Admin: 06/19/17 18:11 Dose: 300 mg Hydralazine HCl (Apresoline) 50 mg PO TID [facility] Last Admin: 06/19/17 18:11 Dose: 50 mg Nafcillin Sodium 2 gm/ Sodium (Chloride) 100 mls @ 100 mls/hr IVPB Q6 [facility] PRN Reason: Protocol Stop: 07/17/17 00:01 Last Admin: 06/19/17 23:00 Dose: 100 mls/hr Lisinopril (Zestril) 10 mg PO DAILY [facility] Last Admin: 06/19/17 14:44 Dose: 10 mg Lorazepam (Ativan) 0.5 mg IVP Q6H PRN; Protocol PRN Reason: Anxiety Last Admin: 06/19/17 09:15 Dose: 0.5 mg Metoprolol Tartrate (Lopressor) 50 mg PO BID [facility] Last Admin: 06/19/17 18:12 Dose: 50 mg Morphine Sulfate (Morphine) 1 mg IVP Q4H PRN PRN Reason: Pain, moderate (4-7) Last Admin: 06/19/17 03:43 Dose: 1 mg Oxycodone HCl (Oxycodone Immediate Release Tab) 30 mg PO Q6H PRN PRN Reason: Pain, severe (8-10) Last Admin: 06/19/17 22:57 Dose: 30 mg - Labs Labs: 06/19/17 07:00 06/19/17 14:25 PT 13.0 SECONDS (9.4-12.5) H 06/15/17 14:20 INR 1.14 (0.93-1.08) H 06/15/17 14:20 APTT 29.7 Seconds (25.1-36.5) 06/15/17 14:20 - ENT Exam Additional comments: oral cavity within normal limits Assessment and Plan (1) Fever Status: Acute (2) Hip pain Status: Acute (3) Neck pain Status: Acute (4) Altered mental status Status: Acute (5) Leukocytosis Status: Acute Attending/Attestation - Attestation I have personally seen and examined this patient.: Yes I have fully participated in the care of the patient.: Yes I have reviewed all pertinent clinical information, including history, physical exam and plan: Yes
--- NOTE | 2017-06-19 13:09 | CP.PCM.PN ---
<Miranda Crum - Last Filed: 06/19/17 13:25> Subjective - Date & Time of Evaluation Date of Evaluation: 06/19/17 Time of Evaluation: 13:09 - Subjective Subjective: Progress note for Dr. Silva Patient seen and examined at bedside. Patient admits to pain. Patient seen by ENT yesterday. No acute events overnight. Patient denies fever, chills, nausea, vomiting, diarrhea. Objective - Vital Signs/Intake and Output Vital Signs (last 24 hours): Temp Pulse Resp BP Pulse Ox 98.1 F 83 20 140/77 97 06/19/17 11:29 06/19/17 11:29 06/19/17 11:29 06/19/17 11:29 06/19/17 06:00 Intake and Output: 06/19/17 06/19/17 06:59 18:59 Intake Total 4200 Output Total 1200 Balance 3000 - Medications Medications: Current Medications Acetaminophen (Tylenol 325mg Tab) 650 mg PO Q8H PRN PRN Reason: Fever >100.4 F Last Admin: 06/15/17 23:53 Dose: 650 mg Aspirin (Aspirin Chewable) 81 mg PO DAILY [facility] Last Admin: 06/19/17 09:26 Dose: 81 mg Clopidogrel Bisulfate (Plavix) 75 mg PO DAILY [facility] Last Admin: 06/19/17 09:26 Dose: 75 mg Docusate Sodium (Colace) 100 mg PO TID [facility] Last Admin: 06/19/17 09:26 Dose: 100 mg Enoxaparin Sodium (Lovenox) 40 mg SC DAILY [facility] PRN Reason: Protocol Last Admin: 06/19/17 09:25 Dose: 40 mg Fentanyl (Duragesic) 1 patch TD Q72H [facility] Last Admin: 06/18/17 14:22 Dose: 1 patch Gabapentin (Neurontin) 300 mg PO TID [facility] PRN Reason: Protocol Last Admin: 06/19/17 09:26 Dose: 300 mg Hydralazine HCl (Apresoline) 50 mg PO TID [facility] Last Admin: 06/19/17 09:30 Dose: 50 mg Nafcillin Sodium 2 gm/ Sodium (Chloride) 100 mls @ 100 mls/hr IVPB Q6 [facility] PRN Reason: Protocol Stop: 07/17/17 00:01 Last Admin: 06/19/17 05:34 Dose: 100 mls/hr Potassium Chloride (Potassium Chloride 10 Meq/100 Ml) 10 meq in 100 mls @ 50 mls/hr IVPB Q2H [facility] Stop: 06/19/17 12:59 Last Admin: 06/19/17 11:57 Dose: 50 mls/hr Lorazepam (Ativan) 0.5 mg IVP Q6H PRN; Protocol PRN Reason: Anxiety Last Admin: 06/19/17 09:15 Dose: 0.5 mg Metoprolol Tartrate (Lopressor) 50 mg PO BID [facility] Last Admin: 06/19/17 09:30 Dose: 50 mg Morphine Sulfate (Morphine) 1 mg IVP Q4H PRN PRN Reason: Pain, moderate (4-7) Last Admin: 06/19/17 03:43 Dose: 1 mg Oxycodone HCl (Oxycodone Immediate Release Tab) 30 mg PO Q6H PRN PRN Reason: Pain, severe (8-10) Last Admin: 06/19/17 05:30 Dose: 30 mg - Labs Labs: 06/19/17 07:00 06/19/17 07:00 PT 13.0 SECONDS (9.4-12.5) H 06/15/17 14:20 INR 1.14 (0.93-1.08) H 06/15/17 14:20 APTT 29.7 Seconds (25.1-36.5) 06/15/17 14:20 - Constitutional Appears: Non-toxic, No Acute Distress - Head Exam Head Exam: ATRAUMATIC, NORMAL INSPECTION, NORMOCEPHALIC - Eye Exam Eye Exam: EOMI, Normal appearance Pupil Exam: NORMAL ACCOMODATION, PERRL - ENT Exam ENT Exam: Mucous Membranes Moist, Normal Exam - Neck Exam Neck Exam: Normal Inspection. absent: Lymphadenopathy, Tenderness - Respiratory Exam Respiratory Exam: NORMAL BREATHING PATTERN. absent: Accessory Muscle Use, Clear to Ausculation Bilateral - Cardiovascular Exam Cardiovascular Exam: REGULAR RHYTHM, +S1, +S2. absent: Bradycardia, Tachycardia - GI/Abdominal Exam GI & Abdominal Exam: Soft, Normal Bowel Sounds. absent: Tenderness - Extremities Exam Extremities Exam: Full ROM, Normal Capillary Refill. 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 Chung CT Chest w/o contrast: right lung patchy ground glass density infiltrates. mild to moderate compression of T12 CT neck: no acute cervical spine fracture. cervical lordosis straightened. anterolisthesis C3 on C4 and C7 on T1. Spondylosis at multiple cervical levels. mild narrowing of thecal sac at C5-6 with left sided spondylitic ridging, posterior disc protrusion C4-5. hypodense fluid visualized in retropharyngeal space. small ground glass density infiltrate in right upper lobe of lung. CT right lower extremity: orthopedic screws on right femoral head and neck. degenerative changes in hip joint with irregularity of articular surface of femoral head. CTA chest: no PE or evidence of lesions CT abdomen/pelvis Daptomycin 420mg Q24H, Doxycycline 100mg Q12H, Merrem 1 gm IVPB Q12H, Oseltamivir 30mg PO BID, discontinued Nafcillin 2gm Q6H oxycodone 30mg PO Q6H PRN, severe pain, home med Morphine 1 mg IV Q6H PRN pain Tylenol 650mg PO Q8H PRN, fever ENT consult Dr. Dover ID consult: Dr. Chung Neurosurgery consult: Dr. Mederos f/u Limited bone scan, patient continues to refuse mildy elevated transaminitis (AST) Tachycardia EKG 3/5 elevated troponin I, downtrending, likely 2/2 demand ischemia BNP [id number] CXR: bilateral venous congestion, mild right lower lobe infiltrate Cardio consult: Dr. Fuentes consider standing Lasix order if venous congestion remains an issue ASA 81mg PO QD Lovenox 70mg SC BID 06/18 Echo: LVF normal size, normal LV wall thickness, systolic function is moderately impaired, global hypokinesis of left ventricle, Grade I abnormal relaxation, mild mitral regurgitation, mild pulmonary HTN, no vegetation history of htn Metoprolol Tartrate 50mg BID Diet: HHD, soft Prophylaxis Protonix Lovenox 40 SC daily discussed with Dr. Shira Crum, DO PGY1 <Ignacio Silva - Last Filed: 06/19/17 14:19> Objective - Vital Signs/Intake and Output Vital Signs (last 24 hours): Temp Pulse Resp BP Pulse Ox 98.1 F 83 20 140/77 97 06/19/17 11:29 06/19/17 11:29 06/19/17 11:29 06/19/17 11:29 06/19/17 06:00 Intake and Output: 06/19/17 06/19/17 06:59 18:59 Intake Total 4200 Output Total 1200 Balance 3000 - Medications Medications: Current Medications Acetaminophen (Tylenol 325mg Tab) 650 mg PO Q8H PRN PRN Reason: Fever >100.4 F Last Admin: 06/15/17 23:53 Dose: 650 mg Aspirin (Aspirin Chewable) 81 mg PO DAILY [facility] Last Admin: 06/19/17 09:26 Dose: 81 mg Clopidogrel Bisulfate (Plavix) 75 mg PO DAILY [facility] Last Admin: 06/19/17 09:26 Dose: 75 mg Docusate Sodium (Colace) 100 mg PO TID [facility] Last Admin: 06/19/17 09:26 Dose: 100 mg Enoxaparin Sodium (Lovenox) 40 mg SC DAILY [facility] PRN Reason: Protocol Last Admin: 06/19/17 09:25 Dose: 40 mg Fentanyl (Duragesic) 1 patch TD Q72H [facility] Last Admin: 06/18/17 14:22 Dose: 1 patch Gabapentin (Neurontin) 300 mg PO TID [facility] PRN Reason: Protocol Last Admin: 06/19/17 09:26 Dose: 300 mg Hydralazine HCl (Apresoline) 50 mg PO TID [facility] Last Admin: 06/19/17 09:30 Dose: 50 mg Nafcillin Sodium 2 gm/ Sodium (Chloride) 100 mls @ 100 mls/hr IVPB Q6 [facility] PRN Reason: Protocol Stop: 07/17/17 00:01 Last Admin: 06/19/17 05:34 Dose: 100 mls/hr Lorazepam (Ativan) 0.5 mg IVP Q6H PRN; Protocol PRN Reason: Anxiety Last Admin: 06/19/17 09:15 Dose: 0.5 mg Metoprolol Tartrate (Lopressor) 50 mg PO BID [facility] Last Admin: 06/19/17 09:30 Dose: 50 mg Morphine Sulfate (Morphine) 1 mg IVP Q4H PRN PRN Reason: Pain, moderate (4-7) Last Admin: 06/19/17 03:43 Dose: 1 mg Oxycodone HCl (Oxycodone Immediate Release Tab) 30 mg PO Q6H PRN PRN Reason: Pain, severe (8-10) Last Admin: 06/19/17 05:30 Dose: 30 mg - Labs Labs: 06/19/17 07:00 06/19/17 07:00 PT 13.0 SECONDS (9.4-12.5) H 06/15/17 14:20 INR 1.14 (0.93-1.08) H 06/15/17 14:20 APTT 29.7 Seconds (25.1-36.5) 06/15/17 14:20 Attending/Attestation - Attestation I have personally seen and examined this patient.: Yes I have fully participated in the care of the patient.: Yes I have reviewed all pertinent clinical information, including history, physical exam and plan: Yes Notes (Text): 06/19/17 14:17 Medical record note made by the resident after discussion with my direction and input after the patient was personally seen and examined by me. I have reviewed the chart and agree that the record accurately reflects by personal performance of the history, physical exam, data review, and medical decision-making, in the course for the patient. I have also personally directed the plan of care. 61 year old female with past medical history of metastatic breast cancer presented with complaint of generalized body aches including neck and hip pain. She was found to have sepsis elevated lactate and ground glass opacities on right lung on CT chest. Blood cultures grew Staph aureus .Repeat blood cultures are negative. Patient was evaluated by ENT, no retropharngeal abscess was noted.Patient case was discussed with ID , she will need total 4 weeks of IV antibiotics, on IV Nafcillin as per ID. She was also found to have elevated troponins; Patient is not having any chest pain She is on aspirin, plavix, metoprolol .Echo showed EF 40% and diastolic CHF.Blood pressure is running high, we will add lisinopril. Hypokalemia, will replace potssium and follow up electrolyte Prognosis is guarded.
[2017-06-20] MEDS: Morphine 2 mg/ml ISec IVP PRN ×2 (00:46→04:54)
[2017-06-20] MEDS: Nafcillin 2 GM in Sodium Chloride 0.9% 100 ML IVPB SCH ×3 (05:00→18:31)
[2017-06-20 06:26] LABS: BASO # 0.03 K/mm3 (0.0-2.0); BASO % 0.3 % (0.0-3.0); EOS # 0.2 (0.0-0.7); EOS % 1.6 % (1.5-5.0); GRAN # 6.89 (1.4-6.5); HEMOGLOBIN 10.5 g/dL (12.0-16.0); LYMPH # 1.8 (1.2-3.4); MEAN CELL VOLUME 84.4 fl (80.0-105.0); MEAN CORPUSCULAR HEMOGLOBIN 26.9 pg (25.0-35.0); MEAN CORPUSCULAR HGB CONC 31.8 g/dl (31.0-37.0); MEAN PLATELET VOLUME 9.6 fl (7.0-11.0); MONO # 2.2 (0.1-0.6); MONO % 20.1 % (1.0-6.0); PLATELET COUNT 161 10^3/uL (120.0-450.0); RBC 3.91 10^6/uL (3.5-6.1); RED CELL DISTRIBUTION WIDTH 15.5 % (11.5-14.5); WHITE BLOOD COUNT 11.1 10^3/ul (4.5-11.0)
[2017-06-20 07:06] LABS: ALB/GLOB RATIO 0.8 (1.1-1.8); ALBUMIN 2.8 g/dL (3.0-4.8); ALT/SGPT 33 U/L (7-56); AST/SGOT 63 U/L (14-36); BLOOD UREA NITROGEN 11 mg/dL (7-21); CALCIUM 9.3 mg/dL (8.4-10.5); GFR AFRICAN-AMERICAN > 60; GFR NON-AFRICAN AMERICAN > 60
[2017-06-20] MEDS ORDERED: Morphine 2 mg/ml ISec IVP PRN (07:09)
--- NOTE | 2017-06-20 07:33 | CP.PCM.PN ---
<Miranda Crum - Last Filed: 06/20/17 11:52> Subjective - Date & Time of Evaluation Date of Evaluation: 06/20/17 Time of Evaluation: 07:29 - Subjective Subjective: Progress Note Patient had no acute events overnight. Patient continues to deny the bone scan. Patient denies PICC line consent at this time and states she wants to go to [facility]. Patient is not open to discussing current plan of care at this time. Patient denies fever, chills, nausea, vomiting. Patient admits to pain and states she wants to sleep. Objective - Vital Signs/Intake and Output Vital Signs (last 24 hours): Temp Pulse Resp BP Pulse Ox 98.7 F 96 H 18 150/76 96 06/20/17 06:00 06/20/17 06:00 06/20/17 06:00 06/20/17 06:00 06/20/17 06:00 Intake and Output: 06/20/17 06/20/17 06:59 18:59 Intake Total 500 Output Total 900 Balance -400 - Medications Medications: Current Medications Acetaminophen (Tylenol 325mg Tab) 650 mg PO Q8H PRN PRN Reason: Fever >100.4 F Last Admin: 06/15/17 23:53 Dose: 650 mg Aspirin (Aspirin Chewable) 81 mg PO DAILY [facility] Last Admin: 06/19/17 09:26 Dose: 81 mg Clopidogrel Bisulfate (Plavix) 75 mg PO DAILY [facility] Last Admin: 06/19/17 09:26 Dose: 75 mg Docusate Sodium (Colace) 100 mg PO TID [facility] Last Admin: 06/19/17 18:11 Dose: 100 mg Enoxaparin Sodium (Lovenox) 40 mg SC DAILY [facility] PRN Reason: Protocol Last Admin: 06/19/17 09:25 Dose: 40 mg Fentanyl (Duragesic) 1 patch TD Q72H [facility] Last Admin: 06/18/17 14:22 Dose: 1 patch Gabapentin (Neurontin) 300 mg PO TID [facility] PRN Reason: Protocol Last Admin: 06/19/17 18:11 Dose: 300 mg Hydralazine HCl (Apresoline) 50 mg PO TID [facility] Last Admin: 06/19/17 18:11 Dose: 50 mg Nafcillin Sodium 2 gm/ Sodium (Chloride) 100 mls @ 100 mls/hr IVPB Q6 [facility] PRN Reason: Protocol Stop: 07/17/17 00:01 Last Admin: 06/20/17 05:00 Dose: 100 mls/hr Lisinopril (Zestril) 10 mg PO DAILY [facility] Last Admin: 06/19/17 14:44 Dose: 10 mg Lorazepam (Ativan) 0.5 mg IVP Q6H PRN; Protocol PRN Reason: Anxiety Last Admin: 06/19/17 09:15 Dose: 0.5 mg Metoprolol Tartrate (Lopressor) 50 mg PO BID [facility] Last Admin: 06/19/17 18:12 Dose: 50 mg Morphine Sulfate (Morphine) 0.5 mg IVP Q4H PRN PRN Reason: Pain, moderate (4-7) Oxycodone HCl (Oxycodone Immediate Release Tab) 30 mg PO Q6H PRN PRN Reason: Pain, severe (8-10) Last Admin: 06/19/17 22:57 Dose: 30 mg - Labs Labs: 06/20/17 05:30 06/20/17 05:30 PT 13.0 SECONDS (9.4-12.5) H 06/15/17 14:20 INR 1.14 (0.93-1.08) H 06/15/17 14:20 APTT 29.7 Seconds (25.1-36.5) 06/15/17 14:20 - Constitutional Appears: Non-toxic, No Acute Distress - Head Exam Head Exam: ATRAUMATIC, NORMAL INSPECTION, NORMOCEPHALIC - Eye Exam Eye Exam: EOMI, Normal appearance Pupil Exam: NORMAL ACCOMODATION, PERRL - ENT Exam ENT Exam: Mucous Membranes Moist, Normal Exam - Neck Exam Neck Exam: Full ROM, Normal Inspection. absent: Lymphadenopathy - Respiratory Exam Respiratory Exam: Clear to Ausculation Bilateral, NORMAL BREATHING PATTERN - Cardiovascular Exam Cardiovascular Exam: REGULAR RHYTHM, +S1, +S2. absent: Bradycardia, Tachycardia - GI/Abdominal Exam GI & Abdominal Exam: Soft, Normal Bowel Sounds. 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 Chung CT Chest w/o contrast: right lung patchy ground glass density infiltrates. mild to moderate compression of T12 CT neck: no acute cervical spine fracture. cervical lordosis straightened. anterolisthesis C3 on C4 and C7 on T1. Spondylosis at multiple cervical levels. mild narrowing of thecal sac at C5-6 with left sided spondylitic ridging, posterior disc protrusion C4-5. hypodense fluid visualized in retropharyngeal space. small ground glass density infiltrate in right upper lobe of lung. CT right lower extremity: orthopedic screws on right femoral head and neck. degenerative changes in hip joint with irregularity of articular surface of femoral head. CTA chest: no PE or evidence of lesions CT abdomen/pelvis Daptomycin 420mg Q24H, Doxycycline 100mg Q12H, Merrem 1 gm IVPB Q12H, Oseltamivir 30mg PO BID, discontinued Nafcillin 2gm Q6H oxycodone 30mg PO Q6H PRN, severe pain, home med Morphine 1 mg IV Q6H PRN pain Tylenol 650mg PO Q8H PRN, fever ENT consult Dr. Dover ID consult: Dr. Chung Neurosurgery consult: Dr. Mederos f/u Limited bone scan, patient continues to refuse mildy elevated transaminitis (AST) Tachycardia EKG 3/5 elevated troponin I, downtrending, likely 2/2 demand ischemia BNP [id number] CXR: bilateral venous congestion, mild right lower lobe infiltrate Cardio consult: Dr. Fuentes consider standing Lasix order if venous congestion remains an issue ASA 81mg PO QD Lovenox 70mg SC BID 06/18 Echo: LVF normal size, normal LV wall thickness, systolic function is moderately impaired, global hypokinesis of left ventricle, Grade I abnormal relaxation, mild mitral regurgitation, mild pulmonary HTN, no vegetation History of HTN Metoprolol Tartrate 50mg BID Diet: HHD, soft Prophylaxis Protonix Lovenox 40 SC daily 06/19 Industrial Rehabilitation Consultant: "patient's daughter passed 2 months ago and is the contact on the facesheet Ady Her * CM had some concerns of patient being able to care for herself at home.* [employer] Plans Staff Officer was informed patient is still going to Chemo treatments at this time. Patient has stage 4 Breast CA. *Ady stated he is not able to help with decision making for patient and would like to be taking off the facesheet. patient did not talk to her daughter in 13 years and had no relationship with her family. patient is still drinking and over using her medications. Ady offered contact of: brother in law Raza [phone] and Mother in law from her late [employer]." Dispo: to obtain PICC line consent, wait for approval for MARYJANE discussed with Dr. Shira Crum, DO PGY1 <Ignacio Silva - Last Filed: 06/21/17 14:59> Objective - Vital Signs/Intake and Output Vital Signs (last 24 hours): Temp Pulse Resp BP Pulse Ox 99.5 F 72 18 143/73 99 06/21/17 12:00 06/21/17 12:00 06/21/17 12:00 06/21/17 12:00 06/20/17 17:45 Intake and Output: 06/21/17 06/21/17 06:59 18:59 Intake Total 480 Output Total 1900 Balance -1420 - Medications Medications: Current Medications Acetaminophen (Tylenol 325mg Tab) 650 mg PO Q8H PRN PRN Reason: Fever >100.4 F Last Admin: 06/21/17 05:13 Dose: 650 mg Aspirin (Aspirin Chewable) 81 mg PO DAILY [facility] Last Admin: 06/21/17 10:25 Dose: 81 mg Clopidogrel Bisulfate (Plavix) 75 mg PO DAILY [facility] Last Admin: 06/21/17 10:33 Dose: 75 mg Docusate Sodium (Colace) 100 mg PO TID [facility] Last Admin: 06/21/17 10:33 Dose: 100 mg Enoxaparin Sodium (Lovenox) 40 mg SC DAILY [facility] PRN Reason: Protocol Last Admin: 06/21/17 10:24 Dose: 40 mg Fentanyl (Duragesic) 1 patch TD Q72H [facility] Last Admin: 06/21/17 13:10 Dose: 1 patch Gabapentin (Neurontin) 300 mg PO TID [facility] PRN Reason: Protocol Last Admin: 06/21/17 10:24 Dose: 300 mg Hydralazine HCl (Apresoline) 50 mg PO TID [facility] Last Admin: 06/21/17 10:25 Dose: 50 mg Nafcillin Sodium 2 gm/ Sodium (Chloride) 100 mls @ 100 mls/hr IVPB Q6 [facility] PRN Reason: Protocol Stop: 07/17/17 00:01 Last Admin: 06/21/17 05:13 Dose: 100 mls/hr Lisinopril (Zestril) 10 mg PO DAILY [facility] Last Admin: 06/21/17 10:25 Dose: 10 mg Lorazepam (Ativan) 0.5 mg IVP Q6H PRN; Protocol PRN Reason: Anxiety Last Admin: 06/21/17 01:46 Dose: 0.5 mg Metoprolol Tartrate (Lopressor) 50 mg PO BID [facility] Last Admin: 06/21/17 10:25 Dose: 50 mg Oxycodone HCl (Oxycodone Immediate Release Tab) 30 mg PO Q6H PRN PRN Reason: Pain, severe (8-10) Last Admin: 06/21/17 10:25 Dose: 30 mg Potassium Chloride (Potassium Chloride Oral Soln) 40 meq PO TID [facility] - Labs Labs: 06/21/17 06:00 06/21/17 06:00 PT 13.0 SECONDS (9.4-12.5) H 06/15/17 14:20 INR 1.14 (0.93-1.08) H 06/15/17 14:20 APTT 29.7 Seconds (25.1-36.5) 06/15/17 14:20 Attending/Attestation - Attestation I have personally seen and examined this patient.: Yes I have fully participated in the care of the patient.: Yes I have reviewed all pertinent clinical information, including history, physical exam and plan: Yes Notes (Text): 06/21/17 14:59 Medical record note made by the resident after discussion with my direction and input after the patient was personally seen and examined by me. I have reviewed the chart and agree that the record accurately reflects by personal performance of the history, physical exam, data review, and medical decision-making, in the course for the patient. I have also personally directed the plan of care.
[2017-06-20 08:59] LABS: ANISOCYTOSIS 1+; ATYPICAL LYMPHOCYTE 3 % (0.0-0.0); HYPOCHROMIA 1+; LYMPHOCYTE 30 % (22.0-35.0); MICROCYTOSIS SLIGHT; MONOCYTE 12 % (1.0-6.0); NEUTROPHIL 65 % (50.0-70.0); PLATELET ESTIMATE NORMAL (NORMAL)
--- NOTE | 2017-06-20 09:54 | PN ---
DATE: 06/19/2017 SUBJECTIVE: Patient is seen in bed, in no acute distress, nontoxic. PHYSICAL EXAMINATION: VITAL SIGNS: Temperature is 97, blood pressure is 160/80, respiratory rate of 16. HEENT: Unremarkable. NECK: Supple. LUNGS: Have decreased breath sounds. HEART: Normal S1 and S2. ABDOMEN: Soft and nontender. LABORATORY [place]: [place] [address], hemoglobin 11, sed rate is 71. Chemistries are reviewed. Urinalysis is noted. ASSESSMENT AND PLAN: This is a 61-year-old female, seen earlier this morning, in room 372, bed 1, and was admitted with sepsis with a sensitive Staphylococcus aureus bacteremia, and with neck pain, and also the transthoracic echo was negative. The source of the bacteremia is not entirely clear . We will treat the patient with nafcillin, today is day #4 of 28 days of nafcillin. Recommend CBC, SMA-18, sed rate, C-reactive protein once weekly. We will follow closely with you. The case was discussed with Dr. Silva. Jamel Valencia MD
[2017-06-20] MEDS: Enoxaparin 40 mg Syringe SC SCH (11:04)
[2017-06-20] MEDS: oxyCODONE 30 mg Immediate Release Tab PO PRN ×2 (15:47→21:41)
--- NOTE | 2017-06-20 23:07 | PN ---
DATE: 06/20/2017 SUBJECTIVE: Patient is in bed, in no acute distress, nontoxic. Patient was seen early this morning. No fevers and chills. PHYSICAL EXAMINATION: VITAL SIGNS: Temperature is 98, blood pressure is 180/90, respiratory rate of 18. HEENT: Unremarkable. NECK: Supple. LUNGS: Have decreased breath sounds. HEART: Normal S1, S2. ABDOMEN: Soft, nontender. LABORATORY EXAMINATION: Reveals a white count of 11,000, hemoglobin of 10. BUN of 11, creatinine of 0.5. Urinalysis is noted. Toxicology is noted. Serology is noted and microbiology reveals a sensitive Staph aureus in the blood cultures and review of orders reveals the patient to be on nafcillin. ASSESSMENT AND PLAN: A 61-year-old female who was seen earlier this morning, admitted with sepsis with a sensitive Staphylococcus aureus bacteremia, neck pain. Transthoracic echo was negative. The source of bacteria is not clear. Today is day #5 of 28 days of nafcillin. Recommend CBC, SMA-18, sed rate, C-reactive protein once weekly. Jamel Valencia MD
[2017-06-21] MEDS: Nafcillin 2 GM in Sodium Chloride 0.9% 100 ML IVPB SCH ×5 (00:35→23:56)
[2017-06-21] MEDS: oxyCODONE 30 mg Immediate Release Tab PO PRN ×3 (03:58→17:49)
[2017-06-21 07:44] LABS: BASO # 0.02 K/mm3 (0.0-2.0); BASO % 0.2 % (0.0-3.0); EOS # 0.3 (0.0-0.7); EOS % 2.3 % (1.5-5.0); GRAN # 6.9 (1.4-6.5); GRAN % 59.7 % (50.0-68.0); HEMOGLOBIN 10.4 g/dL (12.0-16.0); LYMPH # 2.4 (1.2-3.4); LYMPH % 20.9 % (22.0-35.0); MEAN CELL VOLUME 84.1 fl (80.0-105.0); MEAN CORPUSCULAR HEMOGLOBIN 26.7 pg (25.0-35.0); MEAN CORPUSCULAR HGB CONC 31.7 g/dl (31.0-37.0); MEAN PLATELET VOLUME 9.8 fl (7.0-11.0); MONO % 16.9 % (1.0-6.0); RBC 3.9 10^6/uL (3.5-6.1); RED CELL DISTRIBUTION WIDTH 15.5 % (11.5-14.5); WHITE BLOOD COUNT 11.6 10^3/ul (4.5-11.0)
[2017-06-21 08:10] LABS: ALB/GLOB RATIO 0.8 (1.1-1.8); ALBUMIN 2.9 g/dL (3.0-4.8); ALT/SGPT 34 U/L (7-56); AST/SGOT 51 U/L (14-36); BLOOD UREA NITROGEN 10 mg/dL (7-21); CALCIUM 9.1 mg/dL (8.4-10.5); GFR AFRICAN-AMERICAN > 60; GFR NON-AFRICAN AMERICAN > 60
--- NOTE | 2017-06-21 09:09 | CP.PCM.PN ---
<RadamesMiranda - Last Filed: 06/21/17 11:39> Subjective - Date & Time of Evaluation Date of Evaluation: 06/21/17 Time of Evaluation: 09:07 - Subjective Subjective: Progress Note Patient seen an examined at bedside. no acute events overnight. Patient's family at bedside. Discussed with patient's family patient's current situation. Patient continues to ask for pain medication. Patient denies needing PICC line for antibiotic treatment and wants to go to [facility]. Patient and family is aware that she will need to go to rehabilitation. Objective - Vital Signs/Intake and Output Vital Signs (last 24 hours): Temp Pulse Resp BP Pulse Ox 98.9 F 81 20 147/72 99 06/20/17 17:45 06/21/17 02:00 06/20/17 17:45 06/20/17 17:45 06/20/17 17:45 - Medications Medications: Current Medications Acetaminophen (Tylenol 325mg Tab) 650 mg PO Q8H PRN PRN Reason: Fever >100.4 F Last Admin: 06/21/17 05:13 Dose: 650 mg Aspirin (Aspirin Chewable) 81 mg PO DAILY [facility] Last Admin: 06/20/17 11:05 Dose: 81 mg Clopidogrel Bisulfate (Plavix) 75 mg PO DAILY [facility] Last Admin: 06/20/17 11:04 Dose: 75 mg Docusate Sodium (Colace) 100 mg PO TID [facility] Last Admin: 06/20/17 18:32 Dose: 100 mg Enoxaparin Sodium (Lovenox) 40 mg SC DAILY [facility] PRN Reason: Protocol Last Admin: 06/20/17 11:04 Dose: 40 mg Fentanyl (Duragesic) 1 patch TD Q72H [facility] Last Admin: 06/18/17 14:22 Dose: 1 patch Gabapentin (Neurontin) 300 mg PO TID [facility] PRN Reason: Protocol Last Admin: 06/20/17 18:32 Dose: 300 mg Hydralazine HCl (Apresoline) 50 mg PO TID [facility] Last Admin: 06/20/17 18:32 Dose: 50 mg Nafcillin Sodium 2 gm/ Sodium (Chloride) 100 mls @ 100 mls/hr IVPB Q6 [facility] PRN Reason: Protocol Stop: 07/17/17 00:01 Last Admin: 06/21/17 05:13 Dose: 100 mls/hr Lisinopril (Zestril) 10 mg PO DAILY [facility] Last Admin: 06/20/17 11:04 Dose: 10 mg Lorazepam (Ativan) 0.5 mg IVP Q6H PRN; Protocol PRN Reason: Anxiety Last Admin: 06/21/17 01:46 Dose: 0.5 mg Metoprolol Tartrate (Lopressor) 50 mg PO BID [facility] Last Admin: 06/20/17 18:32 Dose: 50 mg Oxycodone HCl (Oxycodone Immediate Release Tab) 30 mg PO Q6H PRN PRN Reason: Pain, severe (8-10) Last Admin: 06/21/17 03:58 Dose: 30 mg - Labs Labs: 06/21/17 06:00 06/21/17 06:00 PT 13.0 SECONDS (9.4-12.5) H 06/15/17 14:20 INR 1.14 (0.93-1.08) H 06/15/17 14:20 APTT 29.7 Seconds (25.1-36.5) 06/15/17 14:20 - Constitutional Appears: Non-toxic, No Acute Distress - Head Exam Head Exam: ATRAUMATIC, NORMAL INSPECTION, NORMOCEPHALIC - Eye Exam Eye Exam: EOMI, Normal appearance - ENT Exam ENT Exam: Mucous Membranes Dry, Mucous Membranes Moist, Normal Exam - Neck Exam Neck Exam: Full ROM. absent: Tenderness - Respiratory Exam Respiratory Exam: Clear to Ausculation Bilateral, NORMAL BREATHING PATTERN. absent: Accessory Muscle Use - Cardiovascular Exam Cardiovascular Exam: REGULAR RHYTHM, +S1, +S2. absent: Bradycardia, Tachycardia - GI/Abdominal Exam GI & Abdominal Exam: Soft, Normal Bowel Sounds. absent: Tenderness, Hypoactive Bowel Sounds - Extremities Exam Extremities Exam: Full ROM, Normal Inspection. 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 Sepsis, no longer febrile leukocytosis, downtrending lactate, downtrending Blood cultures positive x 2 gram positive cocci, staph aureus UA negative urine tox: positive for opiates ID consult: Dr. Chung CT Chest w/o contrast: right lung patchy ground glass density infiltrates. mild to moderate compression of T12 CT neck: no acute cervical spine fracture. cervical lordosis straightened. anterolisthesis C3 on C4 and C7 on T1. Spondylosis at multiple cervical levels. mild narrowing of thecal sac at C5-6 with left sided spondylitic ridging, posterior disc protrusion C4-5. hypodense fluid visualized in retropharyngeal space. small ground glass density infiltrate in right upper lobe of lung. CT right lower extremity: orthopedic screws on right femoral head and neck. degenerative changes in hip joint with irregularity of articular surface of femoral head. CTA chest: no PE or evidence of lesions CT abdomen/pelvis oxycodone 30mg PO Q6H PRN, severe pain, home med Morphine 1 mg IV Q6H PRN pain Tylenol 650mg PO Q8H PRN, fever Nafcillin 2gm IVPB Q6H ENT consult Dr. Dover ID consult: Dr. Chung Neurosurgery consult: Dr. Mederos f/u Limited bone scan, patient continues to refuse mildy elevated transaminitis (AST) Tachycardia EKG 3/ elevated troponin I, downtrending, likely 2/2 demand ischemia BNP [id number] CXR: bilateral venous congestion, mild right lower lobe infiltrate Cardio consult: Dr. Fuentes consider standing Lasix order if venous congestion remains an issue 06/18 Echo: LVF normal size, normal LV wall thickness, systolic function is moderately impaired, global hypokinesis of left ventricle, Grade I abnormal relaxation, mild mitral regurgitation, mild pulmonary HTN, no vegetation ASA 81mg PO QD Lovenox 70mg SC BID History of HTN Metoprolol Tartrate 50mg BID Diet: HHD, soft Prophylaxis Protonix Lovenox 40 SC daily 06/19 Maintenance Services Dispatcher: "patient's daughter passed 2 months ago and is the contact on the facesheet Ady Her *CM had some concerns of patient being able to care for herself at home.* Accounting Administrator was informed patient is still going to Chemo treatments at this time. Patient has stage 4 Breast CA. *Ady stated he is not able to help with decision making for patient and would like to be taking off the facesheet. patient did not talk to her daughter in 13 years and had no relationship with her family. patient is still drinking and over using her medications. Ady offered contact of: brother in law Raza [phone] and Mother in law from her late [employer]." Dispo: to obtain PICC line consent, wait for approval for MARYJANE discussed with Dr. Shira Crum DO PGY1 <Ignacio Silva - Last Filed: 06/21/17 15:01> Objective - Vital Signs/Intake and Output Vital Signs (last 24 hours): Temp Pulse Resp BP Pulse Ox 99.5 F 72 18 143/73 99 06/21/17 12:00 06/21/17 12:00 06/21/17 12:00 06/21/17 12:00 06/20/17 17:45 Intake and Output: 06/21/17 06/21/17 06:59 18:59 Intake Total 480 Output Total 1900 Balance -1420 - Medications Medications: Current Medications Acetaminophen (Tylenol 325mg Tab) 650 mg PO Q8H PRN PRN Reason: Fever >100.4 F Last Admin: 06/21/17 05:13 Dose: 650 mg Aspirin (Aspirin Chewable) 81 mg PO DAILY [facility] Last Admin: 06/21/17 10:25 Dose: 81 mg Clopidogrel Bisulfate (Plavix) 75 mg PO DAILY [facility] Last Admin: 06/21/17 10:33 Dose: 75 mg Docusate Sodium (Colace) 100 mg PO TID [facility] Last Admin: 06/21/17 10:33 Dose: 100 mg Enoxaparin Sodium (Lovenox) 40 mg SC DAILY [facility] PRN Reason: Protocol Last Admin: 06/21/17 10:24 Dose: 40 mg Fentanyl (Duragesic) 1 patch TD Q72H [facility] Last Admin: 06/21/17 13:10 Dose: 1 patch Gabapentin (Neurontin) 300 mg PO TID [facility] PRN Reason: Protocol Last Admin: 06/21/17 10:24 Dose: 300 mg Hydralazine HCl (Apresoline) 50 mg PO TID [facility] Last Admin: 06/21/17 10:25 Dose: 50 mg Nafcillin Sodium 2 gm/ Sodium (Chloride) 100 mls @ 100 mls/hr IVPB Q6 [facility] PRN Reason: Protocol Stop: 07/17/17 00:01 Last Admin: 06/21/17 05:13 Dose: 100 mls/hr Lisinopril (Zestril) 10 mg PO DAILY [facility] Last Admin: 06/21/17 10:25 Dose: 10 mg Lorazepam (Ativan) 0.5 mg IVP Q6H PRN; Protocol PRN Reason: Anxiety Last Admin: 06/21/17 01:46 Dose: 0.5 mg Metoprolol Tartrate (Lopressor) 50 mg PO BID [facility] Last Admin: 06/21/17 10:25 Dose: 50 mg Oxycodone HCl (Oxycodone Immediate Release Tab) 30 mg PO Q6H PRN PRN Reason: Pain, severe (8-10) Last Admin: 06/21/17 10:25 Dose: 30 mg Potassium Chloride (Potassium Chloride Oral Soln) 40 meq PO TID [facility] - Labs Labs: 06/21/17 06:00 06/21/17 06:00 PT 13.0 SECONDS (9.4-12.5) H 06/15/17 14:20 INR 1.14 (0.93-1.08) H 06/15/17 14:20 APTT 29.7 Seconds (25.1-36.5) 06/15/17 14:20 Attending/Attestation - Attestation I have personally seen and examined this patient.: Yes I have fully participated in the care of the patient.: Yes I have reviewed all pertinent clinical information, including history, physical exam and plan: Yes Notes (Text): 06/21/17 14:59 Medical record note made by the resident after discussion with my direction and input after the patient was personally seen and examined by me. I have reviewed the chart and agree that the record accurately reflects by personal performance of the history, physical exam, data review, and medical decision-making, in the course for the patient. I have also personally directed the plan of care. In Summary MS Wilson is 61 year old female with past medical history of metastatic breast cancer presented with complaint of generalized body aches including neck and hip pain.She was found to have sepsis elevated lactate and ground glass opacities on right lung on CT chest. Blood cultures grew Staph aureus .Repeat blood cultures are negative. Patient was evaluated by ENT, no retropharngeal abscess was note. she will need total 4 weeks of IV antibiotics, on IV Nafcillin as per ID.Patient is refusing PICC line, Case management is working on disposition. She was also found to have elevated troponins; Patient is not having any chest pain She is on aspirin, plavix, metoprolol and Lisinopril .Echo showed EF 40 % and diastolic CHF. Hypokalemia, will replace potassium and follow up electrolyte Prognosis is guarded.
[2017-06-21] MEDS: Enoxaparin 40 mg Syringe SC SCH (10:24)
[2017-06-21] MEDS ORDERED: Potassium Chloride 40 mEq/30 ml LIQ UD PO SCH (14:00)
[2017-06-21] MEDS ORDERED: Potassium Chloride 40 mEq/30 ml LIQ UD PO ONE ×2 (17:00→22:00)
--- NOTE | 2017-06-21 19:03 | CP.PCM.PN ---
Subjective - Date & Time of Evaluation Date of Evaluation: 06/21/17 Time of Evaluation: 10:45 - Subjective Subjective: Comfortable, no fevers, no nausea, no diarrhea. Objective - Vital Signs/Intake and Output Vital Signs (last 24 hours): Temp Pulse Resp BP Pulse Ox 98.9 F 103 H 20 157/79 H 99 06/20/17 17:45 06/21/17 10:25 06/20/17 17:45 06/21/17 10:25 06/20/17 17:45 - Medications Medications: Current Medications Acetaminophen (Tylenol 325mg Tab) 650 mg PO Q8H PRN PRN Reason: Fever >100.4 F Last Admin: 06/21/17 05:13 Dose: 650 mg Aspirin (Aspirin Chewable) 81 mg PO DAILY [facility] Last Admin: 06/21/17 10:25 Dose: 81 mg Clopidogrel Bisulfate (Plavix) 75 mg PO DAILY [facility] Last Admin: 06/21/17 10:33 Dose: 75 mg Docusate Sodium (Colace) 100 mg PO TID [facility] Last Admin: 06/21/17 10:33 Dose: 100 mg Enoxaparin Sodium (Lovenox) 40 mg SC DAILY [facility] PRN Reason: Protocol Last Admin: 06/21/17 10:24 Dose: 40 mg Fentanyl (Duragesic) 1 patch TD Q72H [facility] Last Admin: 06/18/17 14:22 Dose: 1 patch Gabapentin (Neurontin) 300 mg PO TID [facility] PRN Reason: Protocol Last Admin: 06/21/17 10:24 Dose: 300 mg Hydralazine HCl (Apresoline) 50 mg PO TID [facility] Last Admin: 06/21/17 10:25 Dose: 50 mg Nafcillin Sodium 2 gm/ Sodium (Chloride) 100 mls @ 100 mls/hr IVPB Q6 [facility] PRN Reason: Protocol Stop: 07/17/17 00:01 Last Admin: 06/21/17 05:13 Dose: 100 mls/hr Potassium Chloride (Potassium Chloride 20 Meq/100 Ml) 20 meq in 100 mls @ 50 mls/hr IVPB Q2H [facility] Stop: 06/21/17 15:29 Last Admin: 06/21/17 10:33 Dose: 50 mls/hr Lisinopril (Zestril) 10 mg PO DAILY [facility] Last Admin: 06/21/17 10:25 Dose: 10 mg Lorazepam (Ativan) 0.5 mg IVP Q6H PRN; Protocol PRN Reason: Anxiety Last Admin: 06/21/17 01:46 Dose: 0.5 mg Metoprolol Tartrate (Lopressor) 50 mg PO BID [facility] Last Admin: 06/21/17 10:25 Dose: 50 mg Oxycodone HCl (Oxycodone Immediate Release Tab) 30 mg PO Q6H PRN PRN Reason: Pain, severe (8-10) Last Admin: 06/21/17 10:25 Dose: 30 mg - Labs Labs: 06/21/17 06:00 06/21/17 06:00 PT 13.0 SECONDS (9.4-12.5) H 06/15/17 14:20 INR 1.14 (0.93-1.08) H 06/15/17 14:20 APTT 29.7 Seconds (25.1-36.5) 06/15/17 14:20 - Constitutional Appears: Chronically Ill - Head Exam Head Exam: NORMAL INSPECTION - ENT Exam ENT Exam: Mucous Membranes Moist - Neck Exam Neck Exam: absent: Meningismus - Respiratory Exam Respiratory Exam: Decreased Breath Sounds - Cardiovascular Exam Cardiovascular Exam: +S1, +S2 - GI/Abdominal Exam GI & Abdominal Exam: Soft. absent: Tenderness Assessment and Plan - Assessment and Plan (Free Text) Plan: Assessment Sepsis due to Methicillin-sensitive Staph aureus bacteremia, source unclear HTN osteoporosis former drug user Plan continue Nafcillin to complete 4-6 weeks of antibiotics with weekly ESR, CRP, CBC, CMP while on antibiotics
[2017-06-22] MEDS: oxyCODONE 30 mg Immediate Release Tab PO PRN ×5 (00:03→23:55)
[2017-06-22] MEDS: Nafcillin 2 GM in Sodium Chloride 0.9% 100 ML IVPB SCH ×4 (06:05→23:55)
[2017-06-22 06:40] LABS: ALB/GLOB RATIO 0.8 (1.1-1.8); ALBUMIN 2.9 g/dL (3.0-4.8); ALT/SGPT 30 U/L (7-56); AST/SGOT 58 U/L (14-36); BLOOD UREA NITROGEN 8 mg/dL (7-21); CALCIUM 9.1 mg/dL (8.4-10.5); GFR AFRICAN-AMERICAN > 60; GFR NON-AFRICAN AMERICAN > 60
[2017-06-22 06:54] LABS: BASO # 0.02 K/mm3 (0.0-2.0); BASO % 0.2 % (0.0-3.0); EOS # 0.5 (0.0-0.7); EOS % 4.1 % (1.5-5.0); GRAN # 6.48 (1.4-6.5); GRAN % 56.3 % (50.0-68.0); HEMOGLOBIN 10.5 g/dL (12.0-16.0); LYMPH # 2.2 (1.2-3.4); LYMPH % 18.9 % (22.0-35.0); MEAN CELL VOLUME 85.9 fl (80.0-105.0); MEAN CORPUSCULAR HGB CONC 31.4 g/dl (31.0-37.0); MEAN PLATELET VOLUME 10.1 fl (7.0-11.0); MONO # 2.4 (0.1-0.6); MONO % 20.5 % (1.0-6.0); RBC 3.89 10^6/uL (3.5-6.1); RED CELL DISTRIBUTION WIDTH 15.9 % (11.5-14.5); WHITE BLOOD COUNT 11.5 10^3/ul (4.5-11.0)
[2017-06-22] MEDS: Enoxaparin 40 mg Syringe SC SCH (10:12)
--- NOTE | 2017-06-22 11:28 | CP.PCM.PN ---
<Wilbert Cochran - Last Filed: 06/22/17 11:06> Subjective - Date & Time of Evaluation Date of Evaluation: 06/22/17 Time of Evaluation: 11:06 - Subjective Subjective: Medicine Progress Note: Patient seen and assessed at bedside. No acute events overnight noted by patient or nursing staff. Patient reports that she would still like to be transferred to [facility] if possible and that her [id number] has called and left a message regarding obtaining an accepting physician. Otherwise patient denies fever, chills, headache, chest pain, SOB, abdominal pain, N/V/D/C , urinary changes, or skin changes. Objective - Vital Signs/Intake and Output Vital Signs (last 24 hours): Temp Pulse Resp BP Pulse Ox 98.9 F 86 19 145/80 97 06/22/17 06:00 06/22/17 10:13 06/22/17 06:00 06/22/17 10:13 06/22/17 06:00 Intake and Output: 06/22/17 06/22/17 06:59 18:59 Intake Total 2430 Output Total 2200 Balance 230 - Medications Medications: Current Medications Acetaminophen (Tylenol 325mg Tab) 650 mg PO Q8H PRN PRN Reason: Fever >100.4 F Last Admin: 06/22/17 08:25 Dose: 650 mg Aspirin (Aspirin Chewable) 81 mg PO DAILY [facility] Last Admin: 06/22/17 10:12 Dose: 81 mg Clopidogrel Bisulfate (Plavix) 75 mg PO DAILY [facility] Last Admin: 06/22/17 10:13 Dose: 75 mg Docusate Sodium (Colace) 100 mg PO TID [facility] Last Admin: 06/22/17 10:12 Dose: 100 mg Enoxaparin Sodium (Lovenox) 40 mg SC DAILY [facility] PRN Reason: Protocol Last Admin: 06/22/17 10:12 Dose: 40 mg Fentanyl (Duragesic) 1 patch TD Q72H [facility] Last Admin: 06/21/17 13:10 Dose: 1 patch Gabapentin (Neurontin) 300 mg PO TID [facility] PRN Reason: Protocol Last Admin: 06/22/17 10:16 Dose: 300 mg Hydralazine HCl (Apresoline) 50 mg PO TID [facility] Last Admin: 06/22/17 10:12 Dose: 50 mg Nafcillin Sodium 2 gm/ Sodium (Chloride) 100 mls @ 100 mls/hr IVPB Q6 [facility] PRN Reason: Protocol Stop: 07/17/17 00:01 Last Admin: 06/22/17 06:05 Dose: 100 mls/hr Lisinopril (Zestril) 10 mg PO DAILY [facility] Last Admin: 06/22/17 10:13 Dose: 10 mg Lorazepam (Ativan) 0.5 mg IVP Q6H PRN; Protocol PRN Reason: Anxiety Last Admin: 06/22/17 08:27 Dose: 0.5 mg Metoprolol Tartrate (Lopressor) 50 mg PO BID [facility] Last Admin: 06/22/17 10:12 Dose: 50 mg Oxycodone HCl (Oxycodone Immediate Release Tab) 30 mg PO Q6H PRN PRN Reason: Pain, severe (8-10) Last Admin: 06/22/17 06:03 Dose: 30 mg - Labs Labs: 06/22/17 05:00 06/22/17 05:00 PT 13.0 SECONDS (9.4-12.5) H 06/15/17 14:20 INR 1.14 (0.93-1.08) H 06/15/17 14:20 APTT 29.7 Seconds (25.1-36.5) 06/15/17 14:20 - Constitutional Appears: Non-toxic, No Acute Distress - Head Exam Head Exam: ATRAUMATIC, NORMAL INSPECTION, NORMOCEPHALIC - Eye Exam Eye Exam: EOMI, Normal appearance Pupil Exam: NORMAL ACCOMODATION, PERRL - ENT Exam ENT Exam: Mucous Membranes Moist - Neck Exam Neck Exam: Full ROM - Respiratory Exam Respiratory Exam: Clear to Ausculation Bilateral, NORMAL BREATHING PATTERN - Cardiovascular Exam Cardiovascular Exam: REGULAR RHYTHM - GI/Abdominal Exam GI & Abdominal Exam: Soft, Normal Bowel Sounds - Extremities Exam Extremities Exam: Full ROM, Normal Inspection - Neurological Exam Neurological Exam: Alert, Awake, Oriented x3 - Psychiatric Exam Psychiatric exam: Normal Affect, Normal Mood - Skin Skin Exam: Dry, Intact, Normal Color, Warm Assessment and Plan - Assessment and Plan (Free Text) Assessment: 61 year old female with a past medical history significant for 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 Patient was found to be septic with positive blood cultures for staph aureus. Currently being treated with Nafcillin for 4 weeks. Patient is pending MARYJANE placement. Plan: 1. Sepsis Secondary to MSSA bacteremia with undetermined source -CT Chest showed right lung patchy ground glass density infiltrates -Chest X-Ray showed mild RLL infiltrate -UA without signs of UTI -Two sets of blood cultures grew staph aureus with MRSA screen negative -Echo showed no vegetations -Repeat blood cultures pending -Improving leukocytosis without fever, tachycardia or tachypnea -Continue Nafcillin (Day 08/10) -Continue Tylenol PRN for fever -PICC line indicated but patient refuses -ID consulted, all recommendations appreciated 2. Demand Cardiac Ischemia with Elevated Troponins -Troponins trended downwards with most recent at <0.09 -Continue ASA, Plavix and Metoprolol -Heart Healthy Diet -Cardiology consulted, all recommendations appreciated 3. Systolic and Diastolic CHF -Echo showed moderately impaired systolic function with global hypokinesis of LV and an LVEF of 40% -Chest X-Ray showed [place] [id number] -Continue Lisinopril and aforementioned metoprolol -Standing diuresis to be considered based on presence or absence of symptoms of fluid overload -Cardiology consulted, all recommendations appreciated 4. Cervical Hypodensity in setting of Metastatic Invasive Ductal Carcinoma -CT Neck showed no acute cervical spine fracture, straightened cervical lordosis , anterolisthesis C3 on C4 and C7 on T1, spondylosis at multiple cervical levels , mild narrowing of thecal sac at C5-6 with left sided spondylitic ridging, posterior disc protrusion C4-5 and hypodense fluid visualized in retropharyngeal space -NM Bone Scan recommended and pending as patient refused this study -Continue home Oxycodone 30mg PO Q6H PRN for pain control -Continue Colace to prevent OIC -ENT and Neurosurgery consulted, all recommendations appreciated 5. RLE Pain in setting of Metastatic Invasive Ductal Carcinoma -CT RLE showed orthopedic screws on right femoral head and neck and degenerative changes in hip joint with irregularity of articular surface of femoral head -NM Bone Scan recommended and pending as patient refused this study -Continue Neurontin, Fentanyl patch and aforementioned Oxycodone for pain control -Continue Colace to prevent OIC 6. History of HTN -Continue Lisinopril, Metoprolol and Hydralazine PRN 7. History of Anxiety -Continue Ativan PRN GI Prophylaxis: Protonix DVT Prophylaxis: Lovenox Disposition: Pending MARYJANE placement. Prognosis guarded. Patient seen and case discussed with attending, Dr. Silva. <Ignacio Silva - Last Filed: 06/22/17 15:19> Objective - Vital Signs/Intake and Output Vital Signs (last 24 hours): Temp Pulse Resp BP Pulse Ox 98.9 F 86 19 145/80 97 06/22/17 06:00 06/22/17 10:13 06/22/17 06:00 06/22/17 10:13 06/22/17 06:00 Intake and Output: 06/22/17 06/22/17 06:59 18:59 Intake Total 2430 540 Output Total 2200 1200 Balance 230 -660 - Medications Medications: Current Medications Acetaminophen (Tylenol 325mg Tab) 650 mg PO Q8H PRN PRN Reason: Fever >100.4 F Last Admin: 06/22/17 08:25 Dose: 650 mg Aspirin (Aspirin Chewable) 81 mg PO DAILY [facility] Last Admin: 06/22/17 10:12 Dose: 81 mg Clopidogrel Bisulfate (Plavix) 75 mg PO DAILY [facility] Last Admin: 06/22/17 10:13 Dose: 75 mg Docusate Sodium (Colace) 100 mg PO TID [facility] Last Admin: 06/22/17 10:12 Dose: 100 mg Enoxaparin Sodium (Lovenox) 40 mg SC DAILY [facility] PRN Reason: Protocol Last Admin: 06/22/17 10:12 Dose: 40 mg Fentanyl (Duragesic) 1 patch TD Q72H [facility] Last Admin: 06/21/17 13:10 Dose: 1 patch Gabapentin (Neurontin) 300 mg PO TID [facility] PRN Reason: Protocol Last Admin: 06/22/17 10:16 Dose: 300 mg Hydralazine HCl (Apresoline) 50 mg PO TID [facility] Last Admin: 06/22/17 10:12 Dose: 50 mg Nafcillin Sodium 2 gm/ Sodium (Chloride) 100 mls @ 100 mls/hr IVPB Q6 [facility] PRN Reason: Protocol Stop: 07/17/17 00:01 Last Admin: 06/22/17 12:16 Dose: 100 mls/hr Lisinopril (Zestril) 10 mg PO DAILY [facility] Last Admin: 06/22/17 10:13 Dose: 10 mg Lorazepam (Ativan) 0.5 mg IVP Q6H PRN; Protocol PRN Reason: Anxiety Last Admin: 06/22/17 08:27 Dose: 0.5 mg Metoprolol Tartrate (Lopressor) 50 mg PO BID [facility] Last Admin: 06/22/17 10:12 Dose: 50 mg Oxycodone HCl (Oxycodone Immediate Release Tab) 30 mg PO Q6H PRN PRN Reason: Pain, severe (8-10) Last Admin: 06/22/17 12:16 Dose: 30 mg - Labs Labs: 06/22/17 05:00 06/22/17 05:00 PT 13.0 SECONDS (9.4-12.5) H 06/15/17 14:20 INR 1.14 (0.93-1.08) H 06/15/17 14:20 APTT 29.7 Seconds (25.1-36.5) 06/15/17 14:20 Attending/Attestation - Attestation I have personally seen and examined this patient.: Yes I have fully participated in the care of the patient.: Yes I have reviewed all pertinent clinical information, including history, physical exam and plan: Yes Notes (Text): 06/22/17 15:18 Medical record note made by the resident after discussion with my direction and input after the patient was personally seen and examined by me. I have reviewed the chart and agree that the record accurately reflects by personal performance of the history, physical exam, data review, and medical decision-making, in the course for the patient. I have also personally directed the plan of care. In Summary MS Wilson is 61 year old female with past medical history of metastatic breast cancer presented with complaint of generalized body aches including neck and hip pain.She was found to have sepsis , elevated lactatic acid and ground glass opacities on right lung on CT chest. Blood cultures grew Staph aureus . Patient was evaluated by ENT, no retropharngeal abscess was note. she will need total 4 weeks of IV antibiotics, on IV Nafcillin as per ID.Patient is refusing PICC line, Case management is working on disposition.Psychiatry is consulted. She was also found to have elevated troponins; Patient is not having any chest pain She is on aspirin, plavix, metoprolol and Lisinopril .Echo showed EF 40 % and diastolic CHF.
--- NOTE | 2017-06-22 20:34 | PN ---
DATE: SUBJECTIVE: The patient is in bed, in no acute distress. The patient was seen early this morning in room 372. PHYSICAL EXAMINATION VITAL SIGNS: On exam, the patient's temperature is 98, blood pressure is 140/80, respiratory rate of 16. HEENT: Unremarkable. NECK: Supple. LUNGS: Have decreased breath sounds. HEART: Normal S1 and S2. ABDOMEN: Soft and nontender. LABORATORY DATA: Reveals a white count of 11,500, hemoglobin of 10, platelets of 258. Chemistries reveals a BUN of 8, creatinine of 0.5. Urinalysis is noted. HIV PCR is negative. Microbiology reveals repeat blood cultures from 06/21/2017 are negative. The repeat ones from 06/15/2017 and 06/16/2017 rather is still positive. Review of orders reveals the patient to be on nafcillin. ASSESSMENT AND PLAN: She is a 61-year-old female with sepsis with sensitive Staphylococcus aureus bacteremia, source is unclear, with hypertension, osteoporosis and former drug user, on nafcillin. Today is day #2 of 4 to 6 weeks of antibiotics. I would recommend CBC, SMA-18, sed rate, C-reactive protein once weekly. Follow with you. Jamel Valencia MD
[2017-06-23 01:20] VITALS: RESP 20
[2017-06-23 06:22] LABS: BASO # 0.05 K/mm3 (0.0-2.0); BASO % 0.4 % (0.0-3.0); EOS # 0.5 (0.0-0.7); GRAN # 7.62 (1.4-6.5); GRAN % 59.5 % (50.0-68.0); HEMOGLOBIN 10.4 g/dL (12.0-16.0); LYMPH # 2.2 (1.2-3.4); LYMPH % 17.3 % (22.0-35.0); MEAN CELL VOLUME 85.5 fl (80.0-105.0); MEAN CORPUSCULAR HEMOGLOBIN 26.4 pg (25.0-35.0); MEAN CORPUSCULAR HGB CONC 30.9 g/dl (31.0-37.0); MEAN PLATELET VOLUME 9.4 fl (7.0-11.0); MONO # 2.4 (0.1-0.6); MONO % 18.8 % (1.0-6.0); RBC 3.94 10^6/uL (3.5-6.1); WHITE BLOOD COUNT 12.8 10^3/ul (4.5-11.0)
[2017-06-23] MEDS: Nafcillin 2 GM in Sodium Chloride 0.9% 100 ML IVPB SCH ×4 (06:24→23:09)
[2017-06-23] MEDS: oxyCODONE 30 mg Immediate Release Tab PO PRN ×4 (06:25→23:09)
[2017-06-23 06:55] LABS: ALB/GLOB RATIO 0.8 (1.1-1.8); ALT/SGPT 28 U/L (7-56); AST/SGOT 65 U/L (14-36); BLOOD UREA NITROGEN 10 mg/dL (7-21); CALCIUM 9.2 mg/dL (8.4-10.5); GFR AFRICAN-AMERICAN > 60; GFR NON-AFRICAN AMERICAN > 60
[2017-06-23] MEDS: Enoxaparin 40 mg Syringe SC SCH (09:04)
--- NOTE | 2017-06-23 10:45 | CP.PCM.PN ---
<Wilbert Cochran - Last Filed: 06/23/17 10:42> Subjective - Date & Time of Evaluation Date of Evaluation: 06/23/17 Time of Evaluation: 10:42 - Subjective Subjective: Medicine Progress Note: Patient seen and assessed at bedside. No acute events overnight noted by patient or nursing staff. Patient has no complaints at this time but does still endorse that she is waiting to hear back from her primary care doctor at [facility] for possible transfer. Otherwise patient denies fever, chills , headache, chest pain, SOB, abdominal pain, N/V/D/C, urinary changes, or skin changes. Objective - Vital Signs/Intake and Output Vital Signs (last 24 hours): Temp Pulse Resp BP Pulse Ox 99.3 F 93 H 20 143/74 95 06/23/17 06:00 06/23/17 09:04 06/23/17 06:00 06/23/17 09:04 06/23/17 06:00 Intake and Output: 06/23/17 06/23/17 06:59 18:59 Intake Total Output Total Balance - Medications Medications: Current Medications Acetaminophen (Tylenol 325mg Tab) 650 mg PO Q8H PRN PRN Reason: Fever >100.4 F Last Admin: 06/23/17 09:02 Dose: 650 mg Aspirin (Aspirin Chewable) 81 mg PO DAILY [facility] Last Admin: 06/23/17 09:03 Dose: 81 mg Clopidogrel Bisulfate (Plavix) 75 mg PO DAILY [facility] Last Admin: 06/23/17 09:02 Dose: 75 mg Docusate Sodium (Colace) 100 mg PO TID [facility] Last Admin: 06/23/17 10:03 Dose: 100 mg Enoxaparin Sodium (Lovenox) 40 mg SC DAILY [facility] PRN Reason: Protocol Last Admin: 06/23/17 09:04 Dose: 40 mg Fentanyl (Duragesic) 1 patch TD Q72H [facility] Last Admin: 06/21/17 13:10 Dose: 1 patch Gabapentin (Neurontin) 300 mg PO TID [facility] PRN Reason: Protocol Last Admin: 06/23/17 09:06 Dose: 300 mg Hydralazine HCl (Apresoline) 50 mg PO TID [facility] Last Admin: 06/23/17 09:02 Dose: 50 mg Nafcillin Sodium 2 gm/ Sodium (Chloride) 100 mls @ 100 mls/hr IVPB Q6 [facility] PRN Reason: Protocol Stop: 07/17/17 00:01 Last Admin: 06/23/17 06:24 Dose: 100 mls/hr Lisinopril (Zestril) 10 mg PO DAILY [facility] Last Admin: 06/23/17 09:04 Dose: 10 mg Lorazepam (Ativan) 0.5 mg IVP Q6H PRN; Protocol PRN Reason: Anxiety Last Admin: 06/23/17 09:01 Dose: 0.5 mg Metoprolol Tartrate (Lopressor) 50 mg PO BID [facility] Last Admin: 06/23/17 09:03 Dose: 50 mg Oxycodone HCl (Oxycodone Immediate Release Tab) 30 mg PO Q6H PRN PRN Reason: Pain, severe (8-10) Last Admin: 06/23/17 06:25 Dose: 30 mg - Labs Labs: 06/23/17 05:00 06/23/17 05:00 PT 13.0 SECONDS (9.4-12.5) H 06/15/17 14:20 INR 1.14 (0.93-1.08) H 06/15/17 14:20 APTT 29.7 Seconds (25.1-36.5) 06/15/17 14:20 - Constitutional Appears: Non-toxic, No Acute Distress - Head Exam Head Exam: ATRAUMATIC, NORMOCEPHALIC - Eye Exam Eye Exam: EOMI, Normal appearance Pupil Exam: NORMAL ACCOMODATION, PERRL - ENT Exam ENT Exam: Mucous Membranes Moist, Normal Exam - Respiratory Exam Respiratory Exam: Clear to Ausculation Bilateral, NORMAL BREATHING PATTERN. absent: Accessory Muscle Use, Chest Wall Tenderness, Decreased Breath Sounds, Prolonged Expiratory Phase, Rales, Rhonchi, Wheezes, Respiratory Distress, Stridor - Cardiovascular Exam Cardiovascular Exam: REGULAR RHYTHM, RRR, +S1, +S2 - GI/Abdominal Exam GI & Abdominal Exam: Soft, Normal Bowel Sounds. absent: Tenderness - Extremities Exam Extremities Exam: Normal Capillary Refill, Normal Inspection. absent: Calf Tenderness, Joint Swelling, Pedal Edema, Tenderness - Neurological Exam Neurological Exam: Alert, Awake, CN II-XII Intact, Oriented x3 - Psychiatric Exam Psychiatric exam: Normal Affect, Normal Mood - Skin Skin Exam: Dry, Intact, Normal Color, Warm Assessment and Plan - Assessment and Plan (Free Text) Assessment: 61 year old female with a past medical history significant for 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 Patient was found to be septic with positive blood cultures for staph aureus. Currently being treated with Nafcillin for 4 weeks. Patient is pending [facility] placement. Plan: 1. Sepsis Secondary to MSSA bacteremia with undetermined source -CT Chest showed right lung patchy ground glass density infiltrates -Chest X-Ray showed mild RLL infiltrate -UA without signs of UTI -Two sets of blood cultures grew staph aureus with MRSA screen negative -Echo showed no vegetations -Repeat blood cultures negative for 24 hours -Leukocytosis to 12.8 without fever, tachycardia or tachypnea -Continue Nafcillin (Day 09/09) -Continue Tylenol PRN for fever -PICC line indicated but patient refuses -ID consulted, all recommendations appreciated 2. Demand Cardiac Ischemia with Elevated Troponins -Troponins trended downwards with most recent at <0.09 -Continue ASA, Plavix and Metoprolol -Heart Healthy Diet -Cardiology consulted, all recommendations appreciated 3. Systolic and Diastolic CHF -Echo showed moderately impaired systolic function with global hypokinesis of LV and an LVEF of 40% -Chest X-Ray [place] [address] -Continue Lisinopril and aforementioned Metoprolol -Standing diuresis to be considered based on presence or absence of symptoms of fluid overload -Cardiology consulted, all recommendations appreciated 4. Cervical Hypodensity in setting of Metastatic Invasive Ductal Carcinoma -CT Neck showed no acute cervical spine fracture, straightened cervical lordosis , anterolisthesis C3 on C4 and C7 on T1, spondylosis at multiple cervical levels , mild narrowing of thecal sac at C5-6 with left sided spondylitic ridging, posterior disc protrusion C4-5 and hypodense fluid visualized in retropharyngeal space -NM Bone Scan recommended and pending as patient refused this study -Continue home Oxycodone 30mg PO Q6H PRN for pain control -Continue Colace to prevent OIC -ENT and Neurosurgery consulted, all recommendations appreciated 5. RLE Pain in setting of Metastatic Invasive Ductal Carcinoma -CT RLE showed orthopedic screws on right femoral head and neck and degenerative changes in hip joint with irregularity of articular surface of femoral head -NM Bone Scan recommended and pending as patient refused this study -Continue Neurontin, Fentanyl patch and aforementioned Oxycodone for pain control -Continue Colace to prevent OIC 6. History of HTN -Continue Lisinopril, Metoprolol and Hydralazine PRN 7. History of Anxiety -Continue Ativan PRN GI Prophylaxis: Protonix DVT Prophylaxis: Lovenox Disposition: Pending transfer to [facility] and/or [facility] placement. Prognosis guarded. Patient seen and case discussed with attending, Dr. Sharan Ratliff. <Sharan Ratliff - Last Filed: 06/23/17 12:59> Objective - Vital Signs/Intake and Output Vital Signs (last 24 hours): Temp Pulse Resp BP Pulse Ox 99.3 F 93 H 20 143/74 95 06/23/17 06:00 06/23/17 10:00 06/23/17 06:00 06/23/17 09:04 06/23/17 06:00 Intake and Output: 06/23/17 06/23/17 06:59 18:59 Intake Total Output Total Balance - Medications Medications: Current Medications Acetaminophen (Tylenol 325mg Tab) 650 mg PO Q8H PRN PRN Reason: Fever >100.4 F Last Admin: 06/23/17 09:02 Dose: 650 mg Aspirin (Aspirin Chewable) 81 mg PO DAILY [facility] Last Admin: 06/23/17 09:03 Dose: 81 mg Clopidogrel Bisulfate (Plavix) 75 mg PO DAILY [facility] Last Admin: 06/23/17 09:02 Dose: 75 mg Docusate Sodium (Colace) 100 mg PO TID [facility] Last Admin: 06/23/17 10:03 Dose: 100 mg Enoxaparin Sodium (Lovenox) 40 mg SC DAILY [facility] PRN Reason: Protocol Last Admin: 06/23/17 09:04 Dose: 40 mg Fentanyl (Duragesic) 1 patch TD Q72H [facility] Last Admin: 06/21/17 13:10 Dose: 1 patch Gabapentin (Neurontin) 300 mg PO TID [facility] PRN Reason: Protocol Last Admin: 06/23/17 09:06 Dose: 300 mg Hydralazine HCl (Apresoline) 50 mg PO TID [facility] Last Admin: 06/23/17 09:02 Dose: 50 mg Nafcillin Sodium 2 gm/ Sodium (Chloride) 100 mls @ 100 mls/hr IVPB Q6 [facility] PRN Reason: Protocol Stop: 07/17/17 00:01 Last Admin: 06/23/17 12:06 Dose: 100 mls/hr Lisinopril (Zestril) 10 mg PO DAILY [facility] Last Admin: 06/23/17 09:04 Dose: 10 mg Lorazepam (Ativan) 0.5 mg IVP Q6H PRN; Protocol PRN Reason: Anxiety Last Admin: 06/23/17 09:01 Dose: 0.5 mg Metoprolol Tartrate (Lopressor) 50 mg PO BID [facility] Last Admin: 06/23/17 09:03 Dose: 50 mg Oxycodone HCl (Oxycodone Immediate Release Tab) 30 mg PO Q6H PRN PRN Reason: Pain, severe (8-10) Last Admin: 06/23/17 12:15 Dose: 30 mg - Labs Labs: 06/23/17 05:00 06/23/17 05:00 PT 13.0 SECONDS (9.4-12.5) H 06/15/17 14:20 INR 1.14 (0.93-1.08) H 06/15/17 14:20 APTT 29.7 Seconds (25.1-36.5) 06/15/17 14:20 Attending/Attestation - Attestation I have personally seen and examined this patient.: Yes I have fully participated in the care of the patient.: Yes I have reviewed all pertinent clinical information, including history, physical exam and plan: Yes Notes (Text): I have seen and examined the patient at bedside. Agree with the above note with the following additions/ exceptions: Briefly this is 61 year old female with history of breast cancer with bone mets, HTN, osteoporosis, right hip surgery who came for evaluation of generalized body aches maximum in the neck area and right hip, fever, generalized weakness and fatigue. She was found to have sepsis , elevated lactic acid and ground glass opacities on right lung on CT chest. Blood cultures grew Staph aureus. Patient was evaluated by ENT, no retropharngeal abscess was noted. Patient will need total 4 weeks of IV antibiotics, on IV Nafcillin as per ID. Patient is refusing PICC line. Case management is working on disposition. Psychiatry is consulted. She was also found to have elevated troponins most likely due to demand ischemia. Patient is not having any chest pain She is on aspirin, plavix, metoprolol and Lisinopril. Echo showed EF 40% and diastolic CHF. Upon discharge patient will follow up with Dr Laboy. Dr Sharan Ratliff
--- NOTE | 2017-06-23 16:40 | CP.PCM.PCO ---
Addendum Addendum: I met with patient at bedside. She is alert and oriented to month, location, year and circumstances. She defers on a psychiatric evaluation or follow up at this time. She reports preference to focus on her medical issues. She is not suicidal and denies thoughts to harm others. Her thought process is coherent. Delusions were not elicited. She does not present as an acute danger to herself or others. At this time psychiatry will respect patient's wishes and sign off. Patient aware she may request our f/u at any time if she should change her mind. 06/23/17 16:39
--- NOTE | 2017-06-23 17:17 | PN ---
DATE: 06/23/2017 SUBJECTIVE: The patient seen earlier this morning. No fevers and no chills. PHYSICAL EXAMINATION: VITAL SIGNS: Temperature is 99, blood pressure is 140/70, respiratory rate of 16. HEENT: Unremarkable. NECK: Supple. LUNGS: Have decreased breath sounds. HEART: Normal S1, S2. ABDOMEN: Soft, nontender. LABORATORY DATA: Reveals a white count of 12,800, hemoglobin of 10, platelets of 311. Chemistries reveal a BUN of 10, creatinine of 0.5. Procalcitonin is noted and urinalysis is noted. Microbiology reveals the blood cultures, one bottle was positive from 06/16. Review of orders reveals the patient to be on nafcillin. ASSESSMENT AND PLAN: This a 61-year-old female with sepsis with a sensitive Staphylococcus aureus bacteremia with unknown source with hypertension, osteoporosis, and former drug abuser. Currently, on nafcillin. Today is day #3 of 42 days of antibiotics with weekly CBC, SMA-18, sed rates, C-reactive protein, and chemistries and we will follow with you. Jamel Valencia MD
[2017-06-24] MEDS: oxyCODONE 30 mg Immediate Release Tab PO PRN ×3 (04:27→18:19)
[2017-06-24] MEDS: Nafcillin 2 GM in Sodium Chloride 0.9% 100 ML IVPB SCH ×5 (05:00→23:49)
[2017-06-24 06:42] LABS: BASO # 0.03 K/mm3 (0.0-2.0); BASO % 0.2 % (0.0-3.0); EOS # 0.4 (0.0-0.7); EOS % 2.9 % (1.5-5.0); GRAN # 8.37 (1.4-6.5); GRAN % 67.3 % (50.0-68.0); HEMOGLOBIN 9.7 g/dL (12.0-16.0); LYMPH % 16.2 % (22.0-35.0); MEAN CELL VOLUME 85.7 fl (80.0-105.0); MEAN CORPUSCULAR HEMOGLOBIN 26.7 pg (25.0-35.0); MEAN CORPUSCULAR HGB CONC 31.2 g/dl (31.0-37.0); MEAN PLATELET VOLUME 8.8 fl (7.0-11.0); MONO # 1.7 (0.1-0.6); MONO % 13.4 % (1.0-6.0); RBC 3.63 10^6/uL (3.5-6.1); WHITE BLOOD COUNT 12.5 10^3/ul (4.5-11.0)
[2017-06-24 07:05] LABS: ALB/GLOB RATIO 0.8 (1.1-1.8); ALBUMIN 2.9 g/dL (3.0-4.8); ALT/SGPT 24 U/L (7-56); AST/SGOT 64 U/L (14-36); BLOOD UREA NITROGEN 13 mg/dL (7-21); CALCIUM 9.3 mg/dL (8.4-10.5); GFR AFRICAN-AMERICAN > 60; GFR NON-AFRICAN AMERICAN > 60
[2017-06-24] MEDS: Enoxaparin 40 mg Syringe SC SCH (09:49)
[2017-06-24] MEDS ORDERED: Alum-Mag Hydrox-Simethicone Susp (30 mL) PO PRN (12:11)
--- NOTE | 2017-06-24 13:59 | CP.PCM.PN ---
Subjective - Date & Time of Evaluation Date of Evaluation: 06/24/17 Time of Evaluation: 07:30 - Subjective Subjective: Emanuel Abreu DO PGY1 - IM Progress Note Patient seen and examined at bedside. No acute events overnight. Patient is worried about removing the mascorro catheter, worried that she will not make it to the bathroom in time, and does not want a bedpan or purewick. Patient is also worried about getting a picc line for prolonged antibiotics, and reports that she would rather stay in the hospital through the course of antibiotics. Patient again wishes to be transferred to [facility] for continued treatment under the care of her oncologist. She denies any chest pain, shortness of breath, abdominal pain, nausea, vomiting, diarrhea, constipation, fever, chills. Patient provided contact information for her oncologist Dr. Rafa Houston, at [facility] ([phone]) Of note, patient reports that she chronically picks her skin, causing small abrasions and lacerations. Objective - Vital Signs/Intake and Output Vital Signs (last 24 hours): Temp Pulse Resp BP Pulse Ox 98.7 F 95 H 20 122/66 96 06/24/17 07:25 06/24/17 09:50 06/24/17 07:25 06/24/17 13:37 06/24/17 07:25 Intake and Output: 06/24/17 06/24/17 06:59 18:59 Intake Total 900 Output Total 1800 Balance -900 - Medications Medications: Current Medications Acetaminophen (Tylenol 325mg Tab) 650 mg PO Q8H PRN PRN Reason: Fever >100.4 F Last Admin: 06/24/17 03:42 Dose: 650 mg Al Hydrox/Mg Hydrox/Simethicone (Maalox Plus 30 Ml) 30 ml PO DAILY PRN PRN Reason: Indigestion / Heartburn Aspirin (Aspirin Chewable) 81 mg PO DAILY [facility] Last Admin: 06/24/17 09:51 Dose: 81 mg Clopidogrel Bisulfate (Plavix) 75 mg PO DAILY [facility] Last Admin: 06/24/17 09:50 Dose: 75 mg Docusate Sodium (Colace) 100 mg PO TID [facility] Last Admin: 06/24/17 13:37 Dose: 100 mg Enoxaparin Sodium (Lovenox) 40 mg SC DAILY [facility] PRN Reason: Protocol Last Admin: 06/24/17 09:49 Dose: 40 mg Fentanyl (Duragesic) 1 patch TD Q72H [facility] Last Admin: 06/24/17 13:37 Dose: 1 patch Gabapentin (Neurontin) 300 mg PO TID [facility] PRN Reason: Protocol Last Admin: 06/24/17 13:36 Dose: 300 mg Hydralazine HCl (Apresoline) 50 mg PO TID [facility] Last Admin: 06/24/17 13:37 Dose: 50 mg Nafcillin Sodium 2 gm/ Sodium (Chloride) 100 mls @ 100 mls/hr IVPB Q6 [facility] PRN Reason: Protocol Stop: 07/17/17 00:01 Last Admin: 06/24/17 12:08 Dose: 100 mls/hr Lisinopril (Zestril) 10 mg PO DAILY [facility] Last Admin: 06/24/17 09:50 Dose: 10 mg Lorazepam (Ativan) 0.5 mg IVP Q6H PRN; Protocol PRN Reason: Anxiety Last Admin: 06/23/17 09:01 Dose: 0.5 mg Metoprolol Tartrate (Lopressor) 50 mg PO BID [facility] Last Admin: 06/24/17 09:49 Dose: 50 mg Oxycodone HCl (Oxycodone Immediate Release Tab) 30 mg PO Q6H PRN PRN Reason: Pain, severe (8-10) Last Admin: 06/24/17 10:24 Dose: 30 mg - Labs Labs: 06/24/17 06:25 06/24/17 06:25 PT 13.0 SECONDS (9.4-12.5) H 06/15/17 14:20 INR 1.14 (0.93-1.08) H 06/15/17 14:20 APTT 29.7 Seconds (25.1-36.5) 06/15/17 14:20 - Constitutional Appears: Non-toxic, No Acute Distress - Head Exam Head Exam: ATRAUMATIC, NORMOCEPHALIC - Eye Exam Eye Exam: EOMI, Normal appearance, PERRL - ENT Exam ENT Exam: Mucous Membranes Moist - Neck Exam Neck Exam: Normal Inspection - Respiratory Exam Respiratory Exam: Clear to Ausculation Bilateral, NORMAL BREATHING PATTERN - Cardiovascular Exam Cardiovascular Exam: RRR, +S1, +S2 - GI/Abdominal Exam GI & Abdominal Exam: Soft, Normal Bowel Sounds. absent: Tenderness - Extremities Exam Extremities Exam: absent: Calf Tenderness, Pedal Edema - Neurological Exam Neurological Exam: Alert, Awake, Oriented x3 - Psychiatric Exam Psychiatric exam: Normal Affect, Normal Mood - Skin Skin Exam: Dry, Intact, Normal Color, Warm Assessment and Plan - Assessment and Plan (Free Text) Assessment: 61 year old female with a past medical history significant for 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 Patient was found to be septic with positive blood cultures for staph aureus. Currently being treated with Nafcillin for 4-6 weeks. Patient is pending [facility] placement. Plan: Sepsis Secondary to MSSA bacteremia with undetermined source -CT Chest showed right lung patchy ground glass density infiltrates; Chest X- Ray showed mild RLL infiltrate; UA without signs of UTI -Two sets of blood cultures grew staph aureus with MRSA screen negative; Repeat blood cultures negative on 06/21 -Echo showed no vegetations -Patient reports chronically picking her skin, which may be probable source; abrasions noted on soles of bilateral feet -Mild persistent leukocytosis without fever, tachycardia or tachypnea; predominant monocytosis -Continue Nafcillin (Day 10/10) -Continue Tylenol PRN for fever -Patient again refuses picc line; would rather continue treatment inpatient with frequent peripheral line changes -ID consulted, all recommendations appreciated Urinary incontinence -Patient reports one episode of urge incontinence at home, prior to admission -Currently mascorro in place; patient was refusing to remove mascorro for fear of incontinence; discussed this, and need for possible further workup at length -Will discontinue mascorro today, for voiding trial, with bedside commode in place. Elevated Troponins likely 2/2 Demand Ischemia -Troponins trended downwards with most recent at <0.09 -Continue ASA, Plavix and Metoprolol -Heart Healthy Diet -Cardiology consulted, all recommendations appreciated Systolic and Diastolic CHF -Echo showed moderately impaired systolic function with global hypokinesis of LV and an LVEF of 40% -Chest X-[place] [address] -Continue Lisinopril and aforementioned Metoprolol -Daily weights; Strict I&O -Cardiology consulted, all recommendations appreciated Retropharyngeal hypodense fluid collection in setting of Metastatic Invasive Ductal Carcinoma -CT Neck showed no acute cervical spine fracture, straightened cervical lordosis , anterolisthesis C3 on C4 and C7 on T1, spondylosis at multiple cervical levels , mild narrowing of thecal sac at C5-6 with left sided spondylitic ridging, posterior disc protrusion C4-5 and hypodense fluid visualized in retropharyngeal space -NM Bone Scan recommended and pending as patient refused this study -Continue home Oxycodone 30mg PO Q6H PRN for pain control -Continue Colace to prevent OIC -ENT and Neurosurgery consulted, all recommendations appreciated RLE Pain in setting of Metastatic Invasive Ductal Carcinoma -CT RLE showed orthopedic screws on right femoral head and neck and degenerative changes in hip joint with irregularity of articular surface of femoral head -NM Bone Scan recommended and pending as patient refused this study -Continue Neurontin, Fentanyl patch and aforementioned Oxycodone for pain control -Continue Colace to prevent OIC History of HTN -Continue Lisinopril, Metoprolol and Hydralazine PRN History of Anxiety -Continue Ativan PRN GI Prophylaxis: Protonix DVT Prophylaxis: Lovenox Disposition: Pending transfer to [facility] and/or [facility] placement. Prognosis guarded. Patient seen and case discussed with attending, Dr. Almeida
--- NOTE | 2017-06-24 14:34 | CP.PCM.PN ---
Subjective - Date & Time of Evaluation Date of Evaluation: 06/24/17 Time of Evaluation: 12:45 - Subjective Subjective: Comfortable, no fevers. Objective - Vital Signs/Intake and Output Vital Signs (last 24 hours): Temp Pulse Resp BP Pulse Ox 98.7 F 95 H 20 150/84 96 06/24/17 07:25 06/24/17 09:50 06/24/17 07:25 06/24/17 09:50 06/24/17 07:25 Intake and Output: 06/24/17 06/24/17 06:59 18:59 Intake Total 900 Output Total 1800 Balance -900 - Medications Medications: Current Medications Acetaminophen (Tylenol 325mg Tab) 650 mg PO Q8H PRN PRN Reason: Fever >100.4 F Last Admin: 06/24/17 03:42 Dose: 650 mg Aspirin (Aspirin Chewable) 81 mg PO DAILY [facility] Last Admin: 06/24/17 09:51 Dose: 81 mg Clopidogrel Bisulfate (Plavix) 75 mg PO DAILY [facility] Last Admin: 06/24/17 09:50 Dose: 75 mg Docusate Sodium (Colace) 100 mg PO TID [facility] Last Admin: 06/24/17 09:50 Dose: 100 mg Enoxaparin Sodium (Lovenox) 40 mg SC DAILY [facility] PRN Reason: Protocol Last Admin: 06/24/17 09:49 Dose: 40 mg Fentanyl (Duragesic) 1 patch TD Q72H [facility] Last Admin: 06/21/17 13:10 Dose: 1 patch Gabapentin (Neurontin) 300 mg PO TID [facility] PRN Reason: Protocol Last Admin: 06/24/17 09:49 Dose: 300 mg Hydralazine HCl (Apresoline) 50 mg PO TID [facility] Last Admin: 06/24/17 09:50 Dose: 50 mg Nafcillin Sodium 2 gm/ Sodium (Chloride) 100 mls @ 100 mls/hr IVPB Q6 [facility] PRN Reason: Protocol Stop: 07/17/17 00:01 Last Admin: 06/24/17 05:00 Dose: 100 mls/hr Lisinopril (Zestril) 10 mg PO DAILY [facility] Last Admin: 06/24/17 09:50 Dose: 10 mg Lorazepam (Ativan) 0.5 mg IVP Q6H PRN; Protocol PRN Reason: Anxiety Last Admin: 06/23/17 09:01 Dose: 0.5 mg Metoprolol Tartrate (Lopressor) 50 mg PO BID [facility] Last Admin: 06/24/17 09:49 Dose: 50 mg Oxycodone HCl (Oxycodone Immediate Release Tab) 30 mg PO Q6H PRN PRN Reason: Pain, severe (8-10) Last Admin: 06/24/17 10:24 Dose: 30 mg - Labs Labs: 06/24/17 06:25 06/24/17 06:25 PT 13.0 SECONDS (9.4-12.5) H 06/15/17 14:20 INR 1.14 (0.93-1.08) H 06/15/17 14:20 APTT 29.7 Seconds (25.1-36.5) 06/15/17 14:20 - Constitutional Appears: Chronically Ill - Head Exam Head Exam: NORMAL INSPECTION - ENT Exam ENT Exam: Mucous Membranes Moist - Neck Exam Neck Exam: absent: Meningismus - Respiratory Exam Respiratory Exam: Decreased Breath Sounds - Cardiovascular Exam Cardiovascular Exam: +S1, +S2 - GI/Abdominal Exam GI & Abdominal Exam: Soft. absent: Tenderness Assessment and Plan - Assessment and Plan (Free Text) Plan: Assessment Sepsis due to Methicillin-sensitive Staph aureus bacteremia, source unclear HTN osteoporosis former drug user Plan continue Nafcillin to complete 4-6 weeks of antibiotics with weekly ESR, CRP, CBC, CMP while on antibiotics (day 4 today)
[2017-06-25] MEDS: oxyCODONE 30 mg Immediate Release Tab PO PRN (05:15)
[2017-06-25] MEDS: Nafcillin 2 GM in Sodium Chloride 0.9% 100 ML IVPB SCH ×2 (05:16→12:54)
[2017-06-25 06:45] LABS: BASO # 0.04 K/mm3 (0.0-2.0); BASO % 0.3 % (0.0-3.0); EOS # 0.3 (0.0-0.7); GRAN # 9.14 (1.4-6.5); GRAN % 70.9 % (50.0-68.0); HEMOGLOBIN 9.7 g/dL (12.0-16.0); LYMPH # 1.5 (1.2-3.4); LYMPH % 11.5 % (22.0-35.0); MEAN CELL VOLUME 85.2 fl (80.0-105.0); MEAN CORPUSCULAR HEMOGLOBIN 26.5 pg (25.0-35.0); MEAN CORPUSCULAR HGB CONC 31.1 g/dl (31.0-37.0); MEAN PLATELET VOLUME 9.1 fl (7.0-11.0); MONO % 15.3 % (1.0-6.0); RBC 3.66 10^6/uL (3.5-6.1); RED CELL DISTRIBUTION WIDTH 16.1 % (11.5-14.5); WHITE BLOOD COUNT 12.9 10^3/ul (4.5-11.0)
[2017-06-25 07:03] LABS: ALB/GLOB RATIO 0.7 (1.1-1.8); ALBUMIN 2.8 g/dL (3.0-4.8); ALT/SGPT 19 U/L (7-56); AST/SGOT 48 U/L (14-36); BLOOD UREA NITROGEN 13 mg/dL (7-21); CALCIUM 9.1 mg/dL (8.4-10.5); GFR AFRICAN-AMERICAN > 60; GFR NON-AFRICAN AMERICAN > 60
[2017-06-25 07:28] VITALS: TEMP 98.8; O2SAT 99
[2017-06-25] MEDS ORDERED: oxyCODONE 30 mg Immediate Release Tab PO STA (09:57)
[2017-06-25] MEDS: Enoxaparin 40 mg Syringe SC SCH (10:00)
[2017-06-25 13:25] VITALS: BP 130/60; PULSE 80
--- NOTE | 2017-06-25 16:14 | CP.PCM.DIS ---
<Emanuel Abreu - Last Filed: 06/25/17 16:10> Provider - Provider Date of Admission: 06/15/17 18:31 Attending physician: Sharan Ratliff MD Primary care physician: NO PRIMARY CARE PROVIDER Consults: ID: Juliet Cardio: Gina ICU: Bey Time Spent in preparation of Discharge (in minutes): 55 Diagnosis - Discharge Diagnosis (1) Altered mental status Status: Acute Priority: High (2) Hip pain Status: Chronic Priority: Low (3) Leukocytosis Status: Acute Priority: High (4) Sepsis Status: Acute Priority: High Hospital Course - Lab Results Lab Results: Micro Results 06/21/17 11:30 Blood-Venous Blood Culture - Preliminary NO GROWTH AFTER 4 DAYS 06/21/17 11:45 Blood-Venous Blood Culture - Preliminary NO GROWTH AFTER 4 DAYS 06/16/17 11:45 Blood-Venous Blood Culture - Final Staphylococcus Aureus 06/16/17 11:45 Blood-Venous Gram Stain - Final 06/16/17 12:00 Blood-Venous Blood Culture - Final NO GROWTH AFTER 5 DAYS 06/16/17 12:00 Blood-Venous Gram Stain - Final TEST NOT PERFORMED 06/15/17 23:30 Naris MRSA Culture (Admit) - Final MRSA NOT DETECTED Most Recent Lab Values WBC 12.9 10^3/ul (4.5-11.0) H 06/25/17 06:20 RBC 3.66 10^6/uL (3.5-6.1) 06/25/17 06:20 Hgb 9.7 g/dL (12.0-16.0) L 06/25/17 06:20 Hct 31.2 % (36.0-48.0) L 06/25/17 06:20 MCV 85.2 fl (80.0-105.0) 06/25/17 06:20 MCH 26.5 pg (25.0-35.0) 06/25/17 06:20 MCHC 31.1 g/dl (31.0-37.0) 06/25/17 06:20 RDW 16.1 % (11.5-14.5) H 06/25/17 06:20 Plt Count 347 10^3/uL (120.0-450.0) 06/25/17 06:20 MPV 9.1 fl (7.0-11.0) 06/25/17 06:20 Gran % 70.9 % (50.0-68.0) H 06/25/17 06:20 Lymph % (Auto) 11.5 % (22.0-35.0) L 06/25/17 06:20 Ballard % (Auto) 15.3 % (1.0-6.0) H 06/25/17 06:20 Eos % (Auto) 2.0 % (1.5-5.0) 06/25/17 06:20 Baso % (Auto) 0.3 % (0.0-3.0) 06/25/17 06:20 Gran # 9.14 (1.4-6.5) H 06/25/17 06:20 Lymph # (Auto) 1.5 (1.2-3.4) 06/25/17 06:20 Ballard # (Auto) 2.0 (0.1-0.6) H 06/25/17 06:20 Eos # (Auto) 0.3 (0.0-0.7) 06/25/17 06:20 Baso # (Auto) 0.04 K/mm3 (0.0-2.0) 06/25/17 06:20 Neutrophils % (Manual) 65 % (50.0-70.0) 06/20/17 05:30 Band Neutrophils % 3 % (0-2) H 06/15/17 15:58 Lymphocytes % (Manual) 30 % (22.0-35.0) 06/20/17 05:30 Atypical Lymphs % 3 % (0.0-0.0) H 06/20/17 05:30 Monocytes % (Manual) 12 % (1.0-6.0) H 06/20/17 05:30 Platelet Evaluation Normal (NORMAL) 06/20/17 05:30 Hypochromasia 1+ 06/20/17 05:30 Anisocytosis (manual) 1+ 06/20/17 05:30 Microcytosis (manual) Slight 06/20/17 05:30 ESR 71 mm/hr (0.0-20.0) H 06/16/17 11:45 PT 13.0 SECONDS (9.4-12.5) H 06/15/17 14:20 INR 1.14 (0.93-1.08) H 06/15/17 14:20 APTT 29.7 Seconds (25.1-36.5) 06/15/17 14:20 D-Dimer, Quantitative 2358 ng/mL (0-243) H 06/16/17 11:45 pO2 121 mm/Hg (30-55) H 06/15/17 19:30 VBG pH 7.44 (7.32-7.43) H 06/15/17 19:30 VBG pCO2 41.0 (40-60) 06/15/17 19:30 VBG HCO3 27.8 mmol/l (21-28) 06/15/17 19:30 VBG Total CO2 29.1 mmol.L (22-28) H 06/15/17 19:30 VBG O2 Sat (Calc) 100.1 % (40-65) H 06/15/17 19:30 VBG Base Excess 3.3 mmol/L (0.0-2.0) H 06/15/17 19:30 VBG Potassium 3.4 mmol/L (3.6-5.2) L 06/15/17 19:30 Sodium 133.0 mmol/L (132-148) 06/15/17 19:30 Chloride 99.0 mmol/L (98-107) 06/15/17 19:30 Glucose 135 mg/dl (65-105) H 06/15/17 19:30 Lactate 2.7 mmol/L (0.7-2.1) H 06/15/17 19:30 FiO2 21.0 % 06/15/17 19:30 Sodium 136 mmol/L (132-148) 06/25/17 06:20 Potassium 3.4 mmol/L (3.6-5.0) L 06/25/17 06:20 Chloride 100 mmol/L (98-107) 06/25/17 06:20 Carbon Dioxide 30 mmol/L (21-33) 06/25/17 06:20 Anion Gap 10 (10-20) 06/25/17 06:20 BUN 13 mg/dL (7-21) 06/25/17 06:20 Creatinine 0.6 mg/dl (0.7-1.2) L 06/25/17 06:20 Est GFR ( Amer) > 60 06/25/17 06:20 Est GFR (Non-Af Amer) > 60 06/25/17 06:20 Random Glucose 120 mg/dL (70-110) H 06/25/17 06:20 Calcium 9.1 mg/dL (8.4-10.5) 06/25/17 06:20 Phosphorus 2.9 mg/dL (2.5-4.5) 06/25/17 06:20 Magnesium 1.9 mg/dL (1.7-2.2) 06/25/17 06:20 Total Bilirubin 0.8 mg/dL (0.2-1.3) 06/25/17 06:20 AST 48 U/L (14-36) H D 06/25/17 06:20 ALT 19 U/L (7-56) 06/25/17 06:20 Alkaline Phosphatase 57 U/L (38-126) 06/25/17 06:20 Lactate Dehydrogenase 578 U/L (333-699) 06/18/17 05:44 Total Creatine Kinase < 20 U/L (35-230) L 06/18/17 05:44 CK-MB (CK-2) 4.5 ng/mL (0.0-3.6) H 06/15/17 15:58 CK-MB (CK-2) % Cancelled 06/15/17 15:58 Troponin I 0.09 ng/mL D 06/18/17 05:44 C-React Prot High Sens > 15.00 mg/L (1.00-3.00) H 06/19/17 07:00 NT-Pro-B Natriuret Pep 46756 pg/mL (0-450) H 06/15/17 16:30 Total Protein 6.5 g/dL (5.8-8.3) 06/25/17 06:20 Albumin 2.8 g/dL (3.0-4.8) L 06/25/17 06:20 Globulin 3.7 gm/dL 06/25/17 06:20 Albumin/Globulin Ratio 0.7 (1.1-1.8) L 06/25/17 06:20 Triglycerides 131 mg/dL (35-160) 06/15/17 16:30 Cholesterol 164 mg/dL (130-200) 06/15/17 16:30 LDL Cholesterol Direct 81 mg/dL (0-129) 06/15/17 16:30 HDL Cholesterol 40 mg/dL (29-60) 06/15/17 16:30 Procalcitonin 1.09 NG/ML (0.19-0.49) H 06/15/17 16:30 TSH 3rd Generation 0.85 mIU/mL (0.46-4.68) 06/15/17 16:30 Venous Blood Potassium 3.4 mmol/L (3.6-5.2) L 06/15/17 19:30 Urine Color Yellow (YELLOW) 06/15/17 15:58 Urine Appearance Clear (CLEAR) 06/15/17 15:58 Urine pH 6.0 (4.7-8.0) 06/15/17 15:58 Ur Specific Gary 1.020 (1.005-1.035) 06/15/17 15:58 Urine Protein 30 mg/dL (<30 mg/dL) H 06/15/17 15:58 Urine Glucose (UA) Negative mg/dL (NEGATIVE) 06/15/17 15:58 Urine Ketones Negative mg/dL (NEGATIVE) 06/15/17 15:58 Urine Blood Moderate (NEGATIVE) H 06/15/17 15:58 Urine Nitrate Negative (NEGATIVE) 06/15/17 15:58 Urine Bilirubin Negative (NEGATIVE) 06/15/17 15:58 Urine Urobilinogen 0.2 E.U./dL (<1 E.U./dL) 06/15/17 15:58 Ur Leukocyte Esterase Negative Simba/uL (NEGATIVE) 06/15/17 15:58 Urine RBC 1 - 3 /hpf (0-2) 06/15/17 15:58 Urine WBC 0 - 2 /hpf (0-6) 06/15/17 15:58 Ur Epithelial Cells 0 - 2 /hpf (0-5) 06/15/17 15:58 Amorphous Sediment Few 06/15/17 15:58 Urine Bacteria Neg (NEG) 06/15/17 15:58 Urine Opiates Screen Positive (NEGATIVE) H 06/15/17 18:55 Urine Methadone Screen Negative (NEGATIVE) 06/15/17 18:55 Ur Barbiturates Screen Negative (NEGATIVE) 06/15/17 18:55 Ur Phencyclidine Scrn Negative (NEGATIVE) 06/15/17 18:55 Ur Amphetamines Screen Negative (NEGATIVE) 06/15/17 18:55 U Benzodiazepines Scrn Negative (NEGATIVE) 06/15/17 18:55 U Oth Cocaine Metabols Negative (NEGATIVE) 06/15/17 18:55 U Cannabinoids Screen Negative (NEGATIVE) 06/15/17 18:55 Alcohol, Quantitative < 10 mg/dL (0-10) 06/15/17 16:30 HIV-1 RNA Qnt (RT-PCR) <1.30 not detected (<1.30) 06/16/17 06:30 Influenza Typ A,B (EIA) Negative for flu a/b (NEGATIVE) 06/15/17 15:58 Ur L.pneumophila Ag Negative (NEGATIVE) 06/16/17 06:30 - Hospital Course Hospital Course: 61 year old female with a past medical history significant for invasive ductal carcinoma of breast with metastasis to bone, osteoporosis, HTN and anxiety who presented with diffuse body aches associated with fever, chills, nausea and vomiting, as well as increased pain in RLE. Patient was found to be septic with blood cultures positive for methicillin sensitive staph aureus. Most likely source is from skin lesions, as patient chronically picks at her skin. On admission, patient also had elevated tropnin and severely elevated BNP. ACS workup was negative, and this was determined to be likely 2/2 demand ischemia; patient's cardiopulmonary status symptomatically improved with supportive treatment. Patient was also incontinent of urine, which resolved with treatment and stabilization of concomitant sepsis. Considering her hip pain and history of bone metastasis, as well as an incidentally found cervical fluid collection vs mass, patient was recommended to have NM bone scan, which she refused. Today, patient is awake, alert, responding to questions appropriately and obeying commands, with normal mental status. She had picc line placed yesterday , and mascorro was removed yesterday. She denies any chest pain, shortness of breath, fever, chills, nausea, vomiting, diarrhea, constipation, abdominal pain , dysuria, hematuria. She is urinating normally without difficulty or incontinence. She continues to have right hip pain, which she has chronically. Patient is being transferred to SNF for continued IV antibiotics for 6 weeks, as well as physical rehabilitation. She was given follow up instructions and all questions were answered to her satisfaction, and she was discharged with transport to the SNF. Discharge Exam - Head Exam Head Exam: NORMAL INSPECTION - Eye Exam Eye Exam: EOMI, Normal appearance, PERRL - ENT Exam ENT Exam: Mucous Membranes Moist - Neck Exam Neck exam: Full Rom, Normal Inspection - Respiratory Exam Respiratory Exam: Clear to PA & Lateral, NORMAL BREATHING PATTERN - Cardiovascular Exam Cardiovascular Exam: RRR, +S1, +S2 - GI/Abdominal Exam GI & Abdominal Exam: Normal Bowel Sounds, Soft. absent: Tenderness - Extremities Exam Extremities exam: normal inspection - Neurological Exam Neurological exam: Alert, CN II-XII Intact, Oriented x3 - Psychiatric Exam Psychiatric exam: Flat Affect, Normal Affect, Normal Mood - Skin Skin Exam: Dry, Intact, Normal Color Discharge Plan - Follow Up Plan Condition: CRITICAL Disposition: TRANSF TO SNF Instructions: Sepsis in Adults, Heart Healthy Diet, Managing Pain When You Have Cancer, Peripherally-Inserted Central Catheter (DC) Additional Instructions: Patient being discharge to half-way facility for continued IV antibiotic administration for 6 weeks and physical therapy and rehabilitation - Prescription given for weekly CBC, CMP, ESR, and CRP for the next 6 weeks - Patient should continue Nafcillin 2gm IV Q6 for 6 weeks (through August 02) Referrals: Jamel Valencia MD [Staff Provider] - PCPMARIA DE JESUS [Primary Care Provider] - <Bimal Almeida - Last Filed: 06/26/17 15:08> Provider - Provider Date of Admission: 06/15/17 18:31 Attending physician: Sharan Ratliff MD Primary care physician: MARIA DE JESUS PRIMARY CARE PROVIDER Hospital Course - Lab Results Lab Results: Micro Results 06/21/17 11:30 Blood-Venous Blood Culture - Final NO GROWTH AFTER 5 DAYS 06/21/17 11:30 Blood-Venous Gram Stain - Final TEST NOT PERFORMED 06/21/17 11:45 Blood-Venous Blood Culture - Final NO GROWTH AFTER 5 DAYS 06/21/17 11:45 Blood-Venous Gram Stain - Final TEST NOT PERFORMED 06/16/17 11:45 Blood-Venous Blood Culture - Final Staphylococcus Aureus 06/16/17 11:45 Blood-Venous Gram Stain - Final 06/16/17 12:00 Blood-Venous Blood Culture - Final NO GROWTH AFTER 5 DAYS 06/16/17 12:00 Blood-Venous Gram Stain - Final TEST NOT PERFORMED 06/15/17 23:30 Naris MRSA Culture (Admit) - Final MRSA NOT DETECTED Most Recent Lab Values WBC 12.9 10^3/ul (4.5-11.0) H 06/25/17 06:20 RBC 3.66 10^6/uL (3.5-6.1) 06/25/17 06:20 Hgb 9.7 g/dL (12.0-16.0) L 06/25/17 06:20 Hct 31.2 % (36.0-48.0) L 06/25/17 06:20 MCV 85.2 fl (80.0-105.0) 06/25/17 06:20 MCH 26.5 pg (25.0-35.0) 06/25/17 06:20 MCHC 31.1 g/dl (31.0-37.0) 06/25/17 06:20 RDW 16.1 % (11.5-14.5) H 06/25/17 06:20 Plt Count 347 10^3/uL (120.0-450.0) 06/25/17 06:20 MPV 9.1 fl (7.0-11.0) 06/25/17 06:20 Gran % 70.9 % (50.0-68.0) H 06/25/17 06:20 Lymph % (Auto) 11.5 % (22.0-35.0) L 06/25/17 06:20 Ballard % (Auto) 15.3 % (1.0-6.0) H 06/25/17 06:20 Eos % (Auto) 2.0 % (1.5-5.0) 06/25/17 06:20 Baso % (Auto) 0.3 % (0.0-3.0) 06/25/17 06:20 Gran # 9.14 (1.4-6.5) H 06/25/17 06:20 Lymph # (Auto) 1.5 (1.2-3.4) 06/25/17 06:20 Ballard # (Auto) 2.0 (0.1-0.6) H 06/25/17 06:20 Eos # (Auto) 0.3 (0.0-0.7) 06/25/17 06:20 Baso # (Auto) 0.04 K/mm3 (0.0-2.0) 06/25/17 06:20 Neutrophils % (Manual) 65 % (50.0-70.0) 06/20/17 05:30 Band Neutrophils % 3 % (0-2) H 06/15/17 15:58 Lymphocytes % (Manual) 30 % (22.0-35.0) 06/20/17 05:30 Atypical Lymphs % 3 % (0.0-0.0) H 06/20/17 05:30 Monocytes % (Manual) 12 % (1.0-6.0) H 06/20/17 05:30 Platelet Evaluation Normal (NORMAL) 06/20/17 05:30 Hypochromasia 1+ 06/20/17 05:30 Anisocytosis (manual) 1+ 06/20/17 05:30 Microcytosis (manual) Slight 06/20/17 05:30 ESR 71 mm/hr (0.0-20.0) H 06/16/17 11:45 PT 13.0 SECONDS (9.4-12.5) H 06/15/17 14:20 INR 1.14 (0.93-1.08) H 06/15/17 14:20 APTT 29.7 Seconds (25.1-36.5) 06/15/17 14:20 D-Dimer, Quantitative 2358 ng/mL (0-243) H 06/16/17 11:45 pO2 121 mm/Hg (30-55) H 06/15/17 19:30 VBG pH 7.44 (7.32-7.43) H 06/15/17 19:30 VBG pCO2 41.0 (40-60) 06/15/17 19:30 VBG HCO3 27.8 mmol/l (21-28) 06/15/17 19:30 VBG Total CO2 29.1 mmol.L (22-28) H 06/15/17 19:30 VBG O2 Sat (Calc) 100.1 % (40-65) H 06/15/17 19:30 VBG Base Excess 3.3 mmol/L (0.0-2.0) H 06/15/17 19:30 VBG Potassium 3.4 mmol/L (3.6-5.2) L 06/15/17 19:30 Sodium 133.0 mmol/L (132-148) 06/15/17 19:30 Chloride 99.0 mmol/L (98-107) 06/15/17 19:30 Glucose 135 mg/dl (65-105) H 06/15/17 19:30 Lactate 2.7 mmol/L (0.7-2.1) H 06/15/17 19:30 FiO2 21.0 % 06/15/17 19:30 Sodium 136 mmol/L (132-148) 06/25/17 06:20 Potassium 3.4 mmol/L (3.6-5.0) L 06/25/17 06:20 Chloride 100 mmol/L (98-107) 06/25/17 06:20 Carbon Dioxide 30 mmol/L (21-33) 06/25/17 06:20 Anion Gap 10 (10-20) 06/25/17 06:20 BUN 13 mg/dL (7-21) 06/25/17 06:20 Creatinine 0.6 mg/dl (0.7-1.2) L 06/25/17 06:20 Est GFR ( Amer) > 60 06/25/17 06:20 Est GFR (Non-Af Amer) > 60 06/25/17 06:20 Random Glucose 120 mg/dL (70-110) H 06/25/17 06:20 Calcium 9.1 mg/dL (8.4-10.5) 06/25/17 06:20 Phosphorus 2.9 mg/dL (2.5-4.5) 06/25/17 06:20 Magnesium 1.9 mg/dL (1.7-2.2) 06/25/17 06:20 Total Bilirubin 0.8 mg/dL (0.2-1.3) 06/25/17 06:20 AST 48 U/L (14-36) H D 06/25/17 06:20 ALT 19 U/L (7-56) 06/25/17 06:20 Alkaline Phosphatase 57 U/L (38-126) 06/25/17 06:20 Lactate Dehydrogenase 578 U/L (333-699) 06/18/17 05:44 Total Creatine Kinase < 20 U/L (35-230) L 06/18/17 05:44 CK-MB (CK-2) 4.5 ng/mL (0.0-3.6) H 06/15/17 15:58 CK-MB (CK-2) % Cancelled 06/15/17 15:58 Troponin I 0.09 ng/mL D 06/18/17 05:44 C-React Prot High Sens > 15.00 mg/L (1.00-3.00) H 06/19/17 07:00 NT-Pro-B Natriuret Pep 39800 pg/mL (0-450) H 06/15/17 16:30 Total Protein 6.5 g/dL (5.8-8.3) 06/25/17 06:20 Albumin 2.8 g/dL (3.0-4.8) L 06/25/17 06:20 Globulin 3.7 gm/dL 06/25/17 06:20 Albumin/Globulin Ratio 0.7 (1.1-1.8) L 06/25/17 06:20 Triglycerides 131 mg/dL (35-160) 06/15/17 16:30 Cholesterol 164 mg/dL (130-200) 06/15/17 16:30 LDL Cholesterol Direct 81 mg/dL (0-129) 06/15/17 16:30 HDL Cholesterol 40 mg/dL (29-60) 06/15/17 16:30 Procalcitonin 1.09 NG/ML (0.19-0.49) H 06/15/17 16:30 TSH 3rd Generation 0.85 mIU/mL (0.46-4.68) 06/15/17 16:30 Venous Blood Potassium 3.4 mmol/L (3.6-5.2) L 06/15/17 19:30 Urine Color Yellow (YELLOW) 06/15/17 15:58 Urine Appearance Clear (CLEAR) 06/15/17 15:58 Urine pH 6.0 (4.7-8.0) 06/15/17 15:58 Ur Specific Gary 1.020 (1.005-1.035) 06/15/17 15:58 Urine Protein 30 mg/dL (<30 mg/dL) H 06/15/17 15:58 Urine Glucose (UA) Negative mg/dL (NEGATIVE) 06/15/17 15:58 Urine Ketones Negative mg/dL (NEGATIVE) 06/15/17 15:58 Urine Blood Moderate (NEGATIVE) H 06/15/17 15:58 Urine Nitrate Negative (NEGATIVE) 06/15/17 15:58 Urine Bilirubin Negative (NEGATIVE) 06/15/17 15:58 Urine Urobilinogen 0.2 E.U./dL (<1 E.U./dL) 06/15/17 15:58 Ur Leukocyte Esterase Negative Simba/uL (NEGATIVE) 06/15/17 15:58 Urine RBC 1 - 3 /hpf (0-2) 06/15/17 15:58 Urine WBC 0 - 2 /hpf (0-6) 06/15/17 15:58 Ur Epithelial Cells 0 - 2 /hpf (0-5) 06/15/17 15:58 Amorphous Sediment Few 06/15/17 15:58 Urine Bacteria Neg (NEG) 06/15/17 15:58 Urine Opiates Screen Positive (NEGATIVE) H 06/15/17 18:55 Urine Methadone Screen Negative (NEGATIVE) 06/15/17 18:55 Ur Barbiturates Screen Negative (NEGATIVE) 06/15/17 18:55 Ur Phencyclidine Scrn Negative (NEGATIVE) 06/15/17 18:55 Ur Amphetamines Screen Negative (NEGATIVE) 06/15/17 18:55 U Benzodiazepines Scrn Negative (NEGATIVE) 06/15/17 18:55 U Oth Cocaine Metabols Negative (NEGATIVE) 06/15/17 18:55 U Cannabinoids Screen Negative (NEGATIVE) 06/15/17 18:55 Alcohol, Quantitative < 10 mg/dL (0-10) 06/15/17 16:30 HIV-1 RNA Qnt (RT-PCR) <1.30 not detected (<1.30) 06/16/17 06:30 Influenza Typ A,B (EIA) Negative for flu a/b (NEGATIVE) 06/15/17 15:58 Ur L.pneumophila Ag Negative (NEGATIVE) 06/16/17 06:30 Attending/Attestation - Attestation I have personally seen and examined this patient.: Yes I have fully participated in the care of the patient.: Yes I have reviewed all pertinent clinical information, including history, physical exam and plan: Yes Notes (Text): 61 year old female with a past medical history significant for invasive ductal carcinoma of breast with metastasis to bone, osteoporosis, HTN and anxiety who presented with diffuse body aches associated with fever, chills, nausea and vomiting, as well as increased pain in RLE. Patient was found to be septic with blood cultures positive for methicillin sensitive staph aureus. Most likely source is from skin lesions, as patient chronically picks at her skin. On admission, patient also had elevated tropnin and severely elevated BNP. ACS workup was negative, and this was determined to be likely 2/2 demand ischemia; patient's cardiopulmonary status symptomatically improved with supportive treatment. Patient was also incontinent of urine, which resolved with treatment and stabilization of concomitant sepsis. Considering her hip pain and history of bone metastasis, as well as an incidentally found cervical fluid collection vs mass, patient was recommended to have NM bone scan, which she refused.
--- NOTE | 2017-06-25 17:05 | CP.PCM.PN ---
Subjective - Date & Time of Evaluation Date of Evaluation: 06/25/17 Time of Evaluation: 12:20 - Subjective Subjective: No fevers, not in distress. Objective - Vital Signs/Intake and Output Vital Signs (last 24 hours): Temp Pulse Resp BP Pulse Ox 98.8 F 83 20 136/62 99 06/25/17 07:27 06/25/17 10:02 06/25/17 07:27 06/25/17 10:02 06/25/17 07:27 Intake and Output: 06/25/17 06/25/17 06:59 18:59 Intake Total 1140 Output Total 1900 Balance -760 - Medications Medications: Current Medications Acetaminophen (Tylenol 325mg Tab) 650 mg PO Q8H PRN PRN Reason: Fever >100.4 F Last Admin: 06/24/17 03:42 Dose: 650 mg Al Hydrox/Mg Hydrox/Simethicone (Maalox Plus 30 Ml) 30 ml PO DAILY PRN PRN Reason: Indigestion / Heartburn Aspirin (Aspirin Chewable) 81 mg PO DAILY [facility] Last Admin: 06/25/17 10:02 Dose: 81 mg Clopidogrel Bisulfate (Plavix) 75 mg PO DAILY [facility] Last Admin: 06/25/17 10:01 Dose: 75 mg Docusate Sodium (Colace) 100 mg PO TID [facility] Last Admin: 06/25/17 10:02 Dose: 100 mg Enoxaparin Sodium (Lovenox) 40 mg SC DAILY [facility] PRN Reason: Protocol Last Admin: 06/25/17 10:00 Dose: 40 mg Fentanyl (Duragesic) 1 patch TD Q72H [facility] Last Admin: 06/24/17 13:37 Dose: 1 patch Gabapentin (Neurontin) 300 mg PO TID [facility] PRN Reason: Protocol Last Admin: 06/25/17 10:00 Dose: 300 mg Hydralazine HCl (Apresoline) 50 mg PO TID [facility] Last Admin: 06/25/17 10:01 Dose: 50 mg Nafcillin Sodium 2 gm/ Sodium (Chloride) 100 mls @ 100 mls/hr IVPB Q6 [facility] PRN Reason: Protocol Stop: 07/17/17 00:01 Last Admin: 06/25/17 05:16 Dose: 100 mls/hr Lisinopril (Zestril) 10 mg PO DAILY [facility] Last Admin: 06/25/17 10:01 Dose: 10 mg Lorazepam (Ativan) 0.5 mg IVP Q6H PRN; Protocol PRN Reason: Anxiety Last Admin: 06/23/17 09:01 Dose: 0.5 mg Metoprolol Tartrate (Lopressor) 50 mg PO BID [facility] Last Admin: 06/25/17 10:02 Dose: 50 mg Oxycodone HCl (Oxycodone Immediate Release Tab) 30 mg PO Q6H PRN PRN Reason: Pain, severe (8-10) Last Admin: 06/25/17 05:15 Dose: 30 mg - Labs Labs: 06/25/17 06:20 06/25/17 06:20 PT 13.0 SECONDS (9.4-12.5) H 06/15/17 14:20 INR 1.14 (0.93-1.08) H 06/15/17 14:20 APTT 29.7 Seconds (25.1-36.5) 06/15/17 14:20 - Constitutional Appears: Chronically Ill - Head Exam Head Exam: NORMAL INSPECTION - Neck Exam Neck Exam: absent: Meningismus - Respiratory Exam Respiratory Exam: Decreased Breath Sounds - Cardiovascular Exam Cardiovascular Exam: +S1, +S2 - GI/Abdominal Exam GI & Abdominal Exam: Soft. absent: Tenderness Assessment and Plan - Assessment and Plan (Free Text) Plan: Assessment Sepsis due to Methicillin-sensitive Staph aureus bacteremia, source unclear HTN osteoporosis former drug user Plan continue Nafcillin to complete 4-6 weeks of antibiotics with weekly ESR, CRP, CBC, CMP while on antibiotics (day 5 today)
== END 2017-06-25 14:17 | DRG 584 ==
LOC: ED 14:51 → ERH 18:31 → ICU 19:15 → 3RSO 06-16 12:15 → 5RNO 06-23 11:42
PROVIDERS: ADMIT Hospitalist; ATTEND Hospitalist
PROC: 02HV33Z Insertion of Infusion Device into Superior Vena Cava, Percutaneous Approach (ICD-10-PCS; principal; 2017-06-25)
PROC: B548ZZA Ultrasonography of Superior Vena Cava, Guidance (ICD-10-PCS; 2017-06-25)
DX: A41.01 Sepsis due to Methicillin susceptible Staphylococcus aureus (principal); I50.40 Unspecified combined systolic (congestive) and diastolic (congestive) heart failure; I24.8 Other forms of acute ischemic heart disease; C79.51 Secondary malignant neoplasm of bone; I11.0 Hypertensive heart disease with heart failure; M48.54XA Collapsed vertebra, not elsewhere classified, thoracic region, initial encounter for fracture; E87.6 Hypokalemia; R32 Unspecified urinary incontinence; C50.912 Malignant neoplasm of unspecified site of left female breast; G89.3 Neoplasm related pain (acute) (chronic); M79.604 Pain in right leg; I27.20 Pulmonary hypertension, unspecified; M81.0 Age-related osteoporosis without current pathological fracture; F41.9 Anxiety disorder, unspecified; K80.20 Calculus of gallbladder without cholecystitis without obstruction; M47.812 Spondylosis without myelopathy or radiculopathy, cervical region; I34.0 Nonrheumatic mitral (valve) insufficiency

== ENCOUNTER 2017-07-28 11:42 | Inpatient (IN) | payer OTHER ==
[2017-07-28] MEDS ORDERED: Sodium Chloride 0.9% 1,000 ML IV SCH (12:00)
[2017-07-28] MEDS ORDERED: Famotidine 20mg/50ml 20 MG/50 ML BAG IVPB STA (12:00)
[2017-07-28] MEDS ORDERED: DiphenhydrAMINE 50 mg/ml Inj IVP STA ×2 (12:01→21:03)
--- NOTE | 2017-07-28 12:02 | ED PDOC ---
Arrival/HPI - General Chief Complaint: Abnormal Skin Integrity Time Seen by Provider: 07/28/17 11:51 Historian: Patient, Family (son) - History of Present Illness Narrative History of Present Illness (Text): 07/28/17 12:02 Pt p/w + diffuse body rash x 1 week; [facility] and pt states the rash was present before her discharge; pt states its very itchy and painful at times, + progressively weak and unable to steady herself when walking; pt states no appetite, pt denied throat tightness/pain, no voice changes; no fever/chills/sweats, no cp/sob/palpitations , no wheezing, no abd pain, no n/v, no numbness/tingling, no urinary/bowel changes, no gross bleeding; no new medications/clothing/detergents; pt denied LOC, no speech changes pt arrived to ED reluctantly under the encouragement of pt's former son in law, who accompanied the patient to today's ED visit pt is here for further eval pt's without other complaints. PCP: peter? oncologists: from [place] Time/Duration: 1 week Symptom Onset: Sudden Symptom Course: Unchanged Severity Level: Severe Activities at Onset: Rest Context: Home Past Medical History - Provider Review Nursing Documentation Reviewed: Yes - Travel History Have you recently traveled outside [place] w/in the past 3 mons?: No - Past History Past History: No Previous - Infectious Disease Hx of Infectious Diseases: None - Tetanus Immunization Tetanus Immunization: Unknown - Reproductive Menopause: Yes Currently : No - Past Medical History Past Medical History: Non-Contributing - Cardiac Hx Pacemaker: No - Pulmonary Hx Respiratory Disorders: No - Neurological Hx Neurological Disorder: No - HEENT Hx HEENT Disorder: No - Renal Hx Renal Disorder: No - Endocrine/Metabolic Hx Endocrine Disorders: No - Hematological/Oncological Hx Cancer: Yes - Integumentary Hx Dermatological Disorder: No - Musculoskeletal/Rheumatological Hx Falls: No - Gastrointestinal Hx Gastrointestinal Disorders: No - Genitourinary/Gynecological Hx Genitourinary Disorders: No - Psychiatric Hx Anxiety: Yes Hx Substance Use: No - Surgical History Hx Mastectomy: No Other/Comment: stage 4 breast, bone ca - Anesthesia Hx Anesthesia: Yes Hx Anesthesia Reactions: No - Suicidal Assessment Feels Threatened In Home Enviroment: No Family/Social History - Physician Review Nursing Documentation Reviewed: Yes Family/Social History: No Known Family HX Smoking Status: Never Smoked Hx Alcohol Use: No Amount per day: 3 Hx Substance Use: No Hx Substance Use Treatment: No Allergies/Home Meds Allergies/Adverse Reactions: Allergies No Known Allergies Allergy (Verified 07/28/17 11:57) Home Medications: Home Meds Medication Instructions Recorded Confirmed Ranitidine HCl [Acid Derrickman Helper] 100 mg PO DAILY 07/28/17 07/28/17 Review of Systems - Review of Systems Constitutional: Fatigue Eyes: Normal ENT: Normal Respiratory: Normal. absent: SOB, Wheezing Cardiovascular: Normal Gastrointestinal: Other (appetite changes). absent: Abdominal Pain, Nausea, Vomiting Genitourinary Female: Normal Musculoskeletal: Normal Skin: Rash, Pruritis Neurological: Dizziness, Other (weakness) Endocrine: Normal Hemo/Lymphatic: Normal Psychiatric: Normal Physical Exam Vital Signs Reviewed: Yes Vital Signs Temp Pulse Resp BP Pulse Ox 07/28/17 15:00 92 H 18 130/79 98 07/28/17 14:46 94 H 18 131/69 07/28/17 13:20 94 H 18 131/69 99 07/28/17 11:49 98.2 F 101 H 18 135/73 99 Temperature: Afebrile Blood Pressure: Normal Pulse: Tachycardic Respiratory Rate: Normal Appearance: Positive for: Well-Appearing, Uncomfortable, Other (uncomfortable, resting in bed, alert/awake, GCS = 15, oriented x 3, mild distress due to pain/ itching) Pain Distress: Mild Mental Status: Positive for: Alert and Oriented X 3 - Systems Exam Head: Present: Atraumatic, Normocephalic Pupils: Present: PERRL, Other (no photophobia, sclera anicteric, no nystagmus) Extroacular Muscles: Present: EOMI Conjunctiva: Present: Normal Ears: Present: Normal Mouth: Present: Dry, Normal Teeth, Other (no mucous membrane rashes/lesions noted, + dry oral mucosa, no drooling/stridor, no exudate/lesions, uvula/tongue are midline) Pharnyx: Present: Normal Nose (External): Present: Atraumatic Nose (Internal): Present: Normal Inspection Neck: Present: Normal Range of Motion, Trachea Midline. No: Meningeal Signs, MIDLINE TENDERNESS Respiratory/Chest: Present: Clear to Auscultation, Good Air Exchange, Other ( CTA b/l, no w/r/r, no accessory muscle use noted). No: Respiratory Distress, Accessory Muscle Use, Wheezes Cardiovascular: Present: Regular Rate and Rhythm, Normal S1, S2. No: Murmurs Abdomen: Present: Normal Bowel Sounds, Other (well nourished female, no focal tenderness, no guardado's sign, no mcburney's point tenderness, no masses/rebound/ guarding/rigidity). No: Tenderness Back: Present: Normal Inspection. No: CVA Tenderness, Midline Tenderness Upper Extremity: Present: Normal Inspection, Normal ROM, NORMAL PULSES, Neurovascularly Intact Lower Extremity: Present: Normal Inspection, Edema, NORMAL PULSES, Neurovascularly Intact Neurological: Present: GCS=15, CN II-XII Intact, Speech Normal Skin: Present: Warm, Rashes, Other (+ diffuse urticarial like lesions b/l upper and lower limbs, trunchal/back/torso rashes up to the base of the neck regions; sparing mucous membranes; NO NIKOKSY's sign, no vesicles/pustules/bullae; slightly tender on exam, extremely puritic) Psychiatric: Present: Alert, Oriented x 3 Medical Decision Making ED Course and Treatment: 07/28/17 12:00 Impression: diffuse body rash i have consider all the differential diagnosis regarding pt's chief medical complaints/clinical findings, including but are not limited to: diffuse body rash A/P: diffuse body rash - labs - iv - cultures - Chest xray - Head ct - supportive care - observe/reevaluation 07/28/17 12:[address] Galindo, who does not accept pt under her service. Recommends pt admission under hospitalist. 07/28/17 13:20 hospitalists, Dr Ratliff contacted, made aware, agrees with admission; agrees with ED mgt/txt/dx pt is made aware of her medical results agrees with admission Re-evaluation Time: 13:20 Reassessment Condition: Improving,but remains with symptoms - Critical Care Critical Care Minutes: 45 minutes Critical Care Time: Excluding Proc Time - Lab Interpretations Lab Results: 07/28/17 11:10 07/28/17 11:10 Lab Results 07/28/17 12:30: Blood Type Confirm A POSITIVE 07/28/17 11:10: Blood Type A POSITIVE, Antibody Screen Negative, BBK History Checked No verified bt 07/28/17 11:10: TSH 3rd Generation 4.73 H 07/28/17 11:10: pO2 71 H, VBG pH 7.37, VBG pCO2 47.0, VBG HCO3 27.2, VBG Total CO2 28.6 H, VBG O2 Sat (Calc) 97.4 H, VBG Base Excess 1.3, VBG Potassium 4.0, Sodium 132.0, Chloride 98.0, Glucose 114 H, Lactate 3.3 H, FiO2 21.0, Venous Blood Potassium 4.0 07/28/17 11:10: Sodium 133, Chloride 96 L, Potassium 4.0, Carbon Dioxide 25, Anion Gap 16, BUN 21, Creatinine 1.1, Est GFR ( Amer) > 60, Est GFR (Non- Af Amer) 50, Random Glucose 110, Calcium 9.1, Total Bilirubin 1.2, AST 41 H, ALT 24, Alkaline Phosphatase 82, Troponin I < 0.01 D, Total Protein 7.4, Albumin 3.7, Globulin 3.7, Albumin/Globulin Ratio 1.0 L, Lipase 26 07/28/17 11:10: PT 12.2, INR 1.06, APTT 34.1 07/28/17 11:10: WBC 18.7 H D, RBC 3.93, Hgb 10.7 L, Hct 33.1 L, MCV 84.2, MCH 27.2, MCHC 32.3, RDW 18.2 H, Plt Count 424, MPV 9.2, Gran % 47.9 L, Lymph % ( Auto) 10.4 L, [place] % (Auto) 8.4 H, Eos % (Auto) 32.9 H, Baso % (Auto) 0.4, Gran # 8.99 H, Lymph # (Auto) 1.9, [place] # (Auto) 1.6 H, Eos # (Auto) 6.2 H, Baso # ( Auto) 0.07, Neutrophils % (Manual) 52, Band Neutrophils % 1, Lymphocytes % ( Manual) 6 L, Monocytes % (Manual) 12 H, Eosinophils % (Manual) 29 H, Platelet Evaluation Normal, Anisocytosis (manual) 1+ I have reviewed the lab results: Yes Interpretation: Abnormal lab values (elevated lactate, elevated WBCs) - RAD Interpretation Narrative RAD Interpretations (Text): 07/28/17 13:43 Chest X-ray reviewed, shows: LUNGS: Clear. PLEURA: No pneumothorax or pleural fluid seen. CARDIOVASCULAR: Normal. OSSEOUS STRUCTURES: No significant abnormalities. VISUALIZED UPPER ABDOMEN: Normal. OTHER FINDINGS: None. IMPRESSION: No active disease. Head CT reviewed, shows: HEMORRHAGE: No intracranial hemorrhage. BRAIN: No mass effect or edema. Minimal diffuse age-appropriate cerebral atrophy. Mild l periventricular white matter lucency consistent with chronic microvascular ischemic change. No evidence of acute infarct. VENTRICLES: Unremarkable. No hydrocephalus. CALVARIUM: Unremarkable. PARANASAL SINUSES: Mild chronic frontal, ethmoid and bilateral maxillary sinusitis. MASTOID AIR CELLS: Unremarkable as visualized. No inflammatory changes. OTHER FINDINGS: None. IMPRESSION: No evidence of metastatic disease. Please note that this evaluation is insensitive for the detection intracranial metastasis in the absence of intravenous contrast administration. There is clinical suspicion of metastatic disease, recommend evaluation with gadolinium enhanced magnetic resonance imaging. Mild chronic white matter ischemic change and age-appropriate atrophy. Mild chronic paranasal sinusitis 07/28/17 18:37 Radiology Orders: 07/28/17 11:58 HEAD W/O CONTRAST [CT] Stat 07/28/17 11:59 CHEST ONE VIEW [RAD] Stat Pipeline Technician: Radiologist - EKG Interpretation Interpreted by ED Physician: Yes Type: 12 lead EKG - Medication Orders Current Medication Orders: Aspirin (Aspirin Chewable) 81 mg PO DAILY OLGA Clopidogrel Bisulfate (Plavix) 75 mg PO DAILY OLGA Diphenhydramine HCl (Benadryl) 25 mg PO Q6 PRN PRN Reason: Itching / Pruritus Last Admin: 07/28/17 17:38 Dose: 25 mg Docusate Sodium (Colace) 100 mg PO TID OLGA Enoxaparin Sodium (Lovenox) 40 mg SC DAILY OLGA PRN Reason: Protocol Last Admin: 07/28/17 14:35 Dose: 40 mg MAR aPTT Document 07/28/17 14:35 EWO (Rec: 07/28/17 14:35 EWO [id number]) aPTT aPTT (secs) 34.1 Subcutaneous Administrations Document 07/28/17 14:35 EWO (Rec: 07/28/17 14:35 EWO [id number]) Injection Site MAR Injection Site Left Deltoid Charges for Administration # of Subcutaneous Administrations 1 Sodium Chloride (Sodium Chloride 0.9%) 1,000 mls @ 100 mls/hr IV .Q10H OLGA Last Admin: 07/28/17 12:13 Dose: 100 mls/hr eMAR Start Stop Document 07/28/17 12:13 EWO (Rec: 07/28/17 12:13 EWO [id number]) Intravenous Solution Start Date 07/28/17 Start Time 12:13 Doxycycline Hyclate 100 mg/ (Sodium Chloride) 100 mls @ 100 mls/hr IVPB Q12 OLGA PRN Reason: Protocol Daptomycin 480 mg/ Sodium (Chloride) 100 mls @ 200 mls/hr IV Q24H OLGA Stop: 08/11/17 15:01 Last Admin: 07/28/17 17:36 Dose: 200 mls/hr eMAR Start Stop Document 07/28/17 17:36 YJ (Rec: 07/28/17 17:37 YJ [id number]) Intravenous Solution Start Date 07/28/17 Start Time 17:36 End Date 07/28/17 End time 18:36 Total Infusion Time 60 Lisinopril (Zestril) 10 mg PO DAILY OLGA Methylprednisolone (Solu-Medrol) 40 mg IVP Q12 OLGA Pantoprazole Sodium (Protonix Inj) 40 mg IVP DAILY OLGA Last Admin: 07/28/17 14:35 Dose: 40 mg IVP Administration Document 07/28/17 14:35 EWO (Rec: 07/28/17 14:35 EW [id number]) Charges for Administration # of IVP Administrations 1 Discontinued Medications Diphenhydramine HCl (Benadryl) 50 mg IVP STAT STA Stop: 07/28/17 12:02 Last Admin: 07/28/17 12:12 Dose: 50 mg IVP Administration Document 07/28/17 12:12 EWO (Rec: 07/28/17 12:12 EW [id number]) Charges for Administration # of IVP Administrations 1 Famotidine (Pepcid 20mg/50ml Premix) 20 mg in 50 mls @ 100 mls/hr IVPB STAT STA Stop: 07/28/17 12:29 Last Admin: 07/28/17 12:12 Dose: 100 mls/hr eMAR Start Stop Document 07/28/17 12:12 EWO (Rec: 07/28/17 12:12 O [id number]) Intravenous Solution Start Date 07/28/17 Start Time 12:12 End Date 07/28/17 End time 12:42 Total Infusion Time 30 Lisinopril (Zestril) 10 mg PO DAILY OLGA Methylprednisolone (Solu-Medrol) 125 mg IVP STAT STA Stop: 07/28/17 12:01 Last Admin: 07/28/17 12:12 Dose: 125 mg IVP Administration Document 07/28/17 12:12 EWO (Rec: 07/28/17 12:12 O [id number]) Charges for Administration # of IVP Administrations 1 Morphine Sulfate (Morphine) 8 mg IVP STAT STA Stop: 07/28/17 12:34 Last Admin: 07/28/17 13:00 Dose: 8 mg [facility] Pain Assessment Document 07/28/17 13:00 EWO (Rec: 07/28/17 13:00 O [id number]) Pain Reassessment Is this a pain reassessment? No Sleep Is patient sleeping during reassessment? No Presence of Pain Presence of Pain Yes Pain Scale Used Pain Scale Used Numeric Location Pain Location Body Site Arm Description Description Constant Intensity of Pain at present 8 Pain Behavior Moaning Guarding IVP Administration Document 07/28/17 13:00 EWO (Rec: 07/28/17 13:00 [facility] [id number]) Charges for Administration # of IVP Administrations 1 Re-Assess: HOLLIE Pain Assessment Document 07/28/17 14:00 EWO (Rec: 07/28/17 14:33 [facility] [id number]) Pain Reassessment Is this a pain reassessment? Yes Sleep Is patient sleeping during reassessment? No Presence of Pain Presence of Pain No Tetanus/Reduced Diphtheria/Acell Pertussis (Boostrix Vaccine Inj) 0.5 ml IM .ONCE ONE Stop: 07/28/17 12:15 Last Admin: 07/28/17 13:01 Dose: 0.5 ml Immunization Registry Document 07/28/17 13:01 EWO (Rec: 07/28/17 13:01 [facility] [id number]) Immunization Registry Consent Date 02/23/17 - Scribe Statement The provider has reviewed the documentation as recorded by the Scribe Radha Sanderlin All medical record entries made by the Macy were at my direction and personally dictated by me. I have reviewed the chart and agree that the record accurately reflects my personal performance of the history, physical exam, medical decision making, and the department course for this patient. I have also personally directed, reviewed, and agree with the discharge instructions and disposition. Disposition/Present on Arrival - Present on Arrival Any Indicators Present on Arrival: No History of DVT/PE: No History of Uncontrolled Diabetes: No Urinary Catheter: No History of Decub. Ulcer: No History Surgical Site Infection Following: None - Disposition Have Diagnosis and Disposition been Completed?: Yes Diagnosis: Rash of entire body, Leukocytosis, Generalized weakness, Breast cancer Disposition: HOSPITALIZED Disposition Time: 13:20 Patient Plan: Admission Patient Problems: Current Active Problems Problem Status Onset Leukocytosis Acute Rash of entire body Acute Generalized weakness Acute Breast cancer Acute Condition: STABLE
[2017-07-28] MEDS ORDERED: TDAP Vaccine 0.5 mL Syr IM ONE (12:14)
[2017-07-28 12:21] LABS: VENOUS BLOOD GAS BASE EXCESS 1.3 mmol/L (0.0-2.0); VENOUS BLOOD GAS PO2 71 mm/Hg (30-55); VENOUS BLOOD PH 7.37 (7.32-7.43)
[2017-07-28 12:29] LABS: ALBUMIN 3.7 g/dL (3.0-4.8); ALT/SGPT 24 U/L (7-56); AST/SGOT 41 U/L (14-36); BLOOD UREA NITROGEN 21 mg/dL (7-21); CALCIUM 9.1 mg/dL (8.4-10.5); GFR AFRICAN-AMERICAN > 60; GFR NON-AFRICAN AMERICAN 50; LIPASE 26 U/L (23-300)
[2017-07-28] MEDS ORDERED: Morphine 2 mg/ml ISec IVP STA (12:30)
[2017-07-28 12:40] LABS: TROPONIN I < 0.01 ng/mL
[2017-07-28 12:48] LABS: BASO # 0.07 K/mm3 (0.0-2.0); BASO % 0.4 % (0.0-3.0); EOS # 6.2 (0.0-0.7); EOS % 32.9 % (1.5-5.0); GRAN # 8.99 (1.4-6.5); GRAN % 47.9 % (50.0-68.0); HEMOGLOBIN 10.7 g/dL (12.0-16.0); LYMPH # 1.9 (1.2-3.4); LYMPH % 10.4 % (22.0-35.0); MEAN CELL VOLUME 84.2 fl (80.0-105.0); MEAN CORPUSCULAR HEMOGLOBIN 27.2 pg (25.0-35.0); MEAN CORPUSCULAR HGB CONC 32.3 g/dl (31.0-37.0); MEAN PLATELET VOLUME 9.2 fl (7.0-11.0); MONO # 1.6 (0.1-0.6); MONO % 8.4 % (1.0-6.0); PLATELET COUNT 424 10^3/uL (120.0-450.0); RBC 3.93 10^6/uL (3.5-6.1); RED CELL DISTRIBUTION WIDTH 18.2 % (11.5-14.5); WHITE BLOOD COUNT 18.7 10^3/ul (4.5-11.0)
[2017-07-28 12:54] LABS: INR 1.06 (0.93-1.08); PARTIAL THROMBOPLASTIN TIME 34.1 Seconds (25.1-36.5); PROTHROMBIN TIME 12.2 SECONDS (9.4-12.5)
--- NOTE | 2017-07-28 13:03 | CT ---
PROCEDURE: CT HEAD WITHOUT CONTRAST. HISTORY: weakness; stage 4 breast cancer? mets COMPARISON: 12/18/2016 TECHNIQUE: Axial computed tomography images were obtained through the head/brain without intravenous contrast. Radiation dose: Total exam DLP = 838.37 mGy-cm. This CT exam was performed using one or more of the following dose reduction techniques: Automated exposure control, adjustment of the mA and/or kV according to patient size, and/or use of iterative reconstruction technique. FINDINGS: HEMORRHAGE: No intracranial hemorrhage. BRAIN: No mass effect or edema. Minimal diffuse age-appropriate cerebral atrophy. Mild l periventricular white matter lucency consistent with chronic microvascular ischemic change. No evidence of acute infarct. VENTRICLES: Unremarkable. No hydrocephalus. CALVARIUM: Unremarkable. PARANASAL SINUSES: Mild chronic frontal, ethmoid and bilateral maxillary sinusitis. MASTOID AIR CELLS: Unremarkable as visualized. No inflammatory changes. OTHER FINDINGS: None. IMPRESSION: No evidence of metastatic disease. Please note that this evaluation is insensitive for the detection intracranial metastasis in the absence of intravenous contrast administration. There is clinical suspicion of metastatic disease, recommend evaluation with gadolinium enhanced magnetic resonance imaging. Mild chronic white matter ischemic change and age-appropriate atrophy. Mild chronic paranasal sinusitis.
--- NOTE | 2017-07-28 13:08 | RAD ---
PROCEDURE: CHEST RADIOGRAPH, 1 VIEW HISTORY: weakness, recent bacteremia, now with diffuse rash COMPARISON: 06/15/2017 FINDINGS: LUNGS: Clear. PLEURA: No pneumothorax or pleural fluid seen. CARDIOVASCULAR: Normal. OSSEOUS STRUCTURES: No significant abnormalities. VISUALIZED UPPER ABDOMEN: Normal. OTHER FINDINGS: None. IMPRESSION: No active disease.
[2017-07-28 13:13] LABS: BAND 1 % (0-2); EOSINOPHIL 29 % (0.0-3.0); LYMPHOCYTE 6 % (22.0-35.0); MONOCYTE 12 % (1.0-6.0); NEUTROPHIL 52 % (50.0-70.0)
[2017-07-28 13:14] LABS: ANISOCYTOSIS 1+; PLATELET ESTIMATE NORMAL (NORMAL)
[2017-07-28] MEDS: Enoxaparin 40 mg Syringe SC SCH (14:35)
--- NOTE | 2017-07-28 14:56 | CP.PCM.HP ---
<Yonatan Lamb - Last Filed: 07/28/17 14:46> History of Present Illness - History of Present Illness History of Present Illness: CC: Rash, swelling, generalized weakness HPI: 61 F with a PMHx of Stage IV breast cancer with bone mets on chemotherapy, HTN, CAD, and OA presenting to the [facility] ED with complaints of diffuse papular, blanchable rash and generalized weakness x 4 days. Pt was recently discharged from [facility] after 4 weeks of IV abx treatment for MSSA bacteremia. Pt developed the rash when the abx were stopped, prior to discharge. Pt states that the rash has progressively worsened with worseneing distribution and associated swelling and pruritis. Pt did report a sick contact at home, her friend who stated she was sick brought the patient some food. Pt also has complaints of generealized weakness that began roughly the same time as the rash. She claims she felt fine while at rehab center. Pt was seen and examined at bedside. Pt denied fever, chills, shortness of breath, cough, chest pains, abdominal pains, nausea, vomiting, diarrhea, constipation or dysuria. PMHx: HTN, Stage 4 metastatic breast cancer (invasive ductal carcinoma) to bone , osteoporosis PSHx: right hip surgery ("years ago") last chemo: 1 week ago. gets chemo at [facility] and does not receive radiation SHx: denies smoking, EtOH, or illicits, lives alone in [place] Meds: asa, plavix, lisinopril, metoprolol, neurontin Allergies: NKDA PMD: Dr. Drake Oncologist: Dr. Melvin [place] [facility]: [facility] Present on Admission - Present on Admission Any Indicators Present on Admission: No Review of Systems - Review of Systems Review of Systems: As per HPI otherwsie negative Past Patient History - Infectious Disease Hx of Infectious Diseases: None - Tetanus Immunizations Tetanus Immunization: Unknown - Past Social History Smoking Status: Never Smoked - CARDIAC Hx Pacemaker: No - PULMONARY Hx Respiratory Disorders: No - NEUROLOGICAL Hx Neurological Disorder: No - HEENT Hx HEENT Problems: No - RENAL Hx Chronic Kidney Disease: No - ENDOCRINE/METABOLIC Hx Endocrine Disorders: No - HEMATOLOGICAL/ONCOLOGICAL Hx Cancer: Yes - INTEGUMENTARY Hx Dermatological Problems: No - MUSCULOSKELETAL/RHEUMATOLOGICAL Hx Falls: No - GASTROINTESTINAL Hx Gastrointestinal Disorders: No - GENITOURINARY/GYNECOLOGICAL Hx Genitourinary Disorders: No - PSYCHIATRIC Hx Anxiety: Yes Hx Substance Use: No - SURGICAL HISTORY Hx Mastectomy: No Other/Comment: stage 4 breast, bone ca - ANESTHESIA Hx Anesthesia: Yes Hx Anesthesia Reactions: No Meds Allergies/Adverse Reactions: Allergies Allergy/AdvReac Type Severity Reaction Status Date / Time No Known Allergies Allergy Verified 07/28/17 11:57 Physical Exam - Constitutional Appears: No Acute Distress - Head Exam Head Exam: ATRAUMATIC, NORMAL INSPECTION, NORMOCEPHALIC - Eye Exam Eye Exam: EOMI, Normal appearance, PERRL Pupil Exam: NORMAL ACCOMODATION, PERRL - ENT Exam ENT Exam: Mucous Membranes Dry - Neck Exam Neck exam: Positive for: Normal Inspection - Respiratory Exam Respiratory Exam: Clear to Auscultation Bilateral, NORMAL BREATHING PATTERN - Cardiovascular Exam Cardiovascular Exam: Tachycardia, +S1, +S2 - GI/Abdominal Exam GI & Abdominal Exam: Normal Bowel Sounds, Soft. absent: Tenderness - Neurological Exam Neurological exam: Alert, CN II-XII Intact, Oriented x3, Reflexes Normal - Psychiatric Exam Psychiatric exam: Normal Affect, Normal Mood - Skin Skin Exam: Dry, Intact, Rash (Diffuse torso, back, bilateral upper and lower extremities), Warm Results - Vital Signs Recent Vital Signs: Last Vital Signs Temp 98.2 F 07/28/17 11:49 Pulse 94 H 07/28/17 13:20 Resp 18 07/28/17 13:20 BP 131/69 07/28/17 13:20 Pulse Ox 99 07/28/17 13:20 - Labs Result Diagrams: 07/28/17 11:10 07/28/17 11:10 Labs: Laboratory Results - last 24 hr 07/28/17 07/28/17 07/28/17 11:10 11:10 11:10 WBC 18.7 H D RBC 3.93 Hgb 10.7 L Hct 33.1 L MCV 84.2 MCH 27.2 MCHC 32.3 RDW 18.2 H Plt Count 424 MPV 9.2 Gran % 47.9 L Lymph % (Auto) 10.4 L Blaine % (Auto) 8.4 H Eos % (Auto) 32.9 H Baso % (Auto) 0.4 Gran # 8.99 H Lymph # (Auto) 1.9 Blaine # (Auto) 1.6 H Eos # (Auto) 6.2 H Baso # (Auto) 0.07 Neutrophils % (Manual) 52 Band Neutrophils % 1 Lymphocytes % (Manual) 6 L Monocytes % (Manual) 12 H Eosinophils % (Manual) 29 H Platelet Evaluation Normal Anisocytosis (manual) 1+ PT 12.2 INR 1.06 APTT 34.1 pO2 VBG pH VBG pCO2 VBG HCO3 VBG Total CO2 VBG O2 Sat (Calc) VBG Base Excess VBG Potassium Sodium 133 Chloride 96 L Glucose Lactate FiO2 Potassium 4.0 Carbon Dioxide 25 Anion Gap 16 BUN 21 Creatinine 1.1 Est GFR ( Amer) > 60 Est GFR (Non-Af Amer) 50 Random Glucose 110 Calcium 9.1 Total Bilirubin 1.2 AST 41 H ALT 24 Alkaline Phosphatase 82 Troponin I < 0.01 D Total Protein 7.4 Albumin 3.7 Globulin 3.7 Albumin/Globulin Ratio 1.0 L Lipase 26 TSH 3rd Generation Venous Blood Potassium Blood Type Blood Type Confirm Antibody Screen BBK History Checked 07/28/17 07/28/17 07/28/17 11:10 11:10 11:10 WBC RBC Hgb Hct MCV MCH MCHC RDW Plt Count MPV Gran % Lymph % (Auto) Blaine % (Auto) Eos % (Auto) Baso % (Auto) Gran # Lymph # (Auto) Blaine # (Auto) Eos # (Auto) Baso # (Auto) Neutrophils % (Manual) Band Neutrophils % Lymphocytes % (Manual) Monocytes % (Manual) Eosinophils % (Manual) Platelet Evaluation Anisocytosis (manual) PT INR APTT pO2 71 H VBG pH 7.37 VBG pCO2 47.0 VBG HCO3 27.2 VBG Total CO2 28.6 H VBG O2 Sat (Calc) 97.4 H VBG Base Excess 1.3 VBG Potassium 4.0 Sodium 132.0 Chloride 98.0 Glucose 114 H Lactate 3.3 H FiO2 21.0 Potassium Carbon Dioxide Anion Gap BUN Creatinine Est GFR ( Amer) Est GFR (Non-Af Amer) Random Glucose Calcium Total Bilirubin AST ALT Alkaline Phosphatase Troponin I Total Protein Albumin Globulin Albumin/Globulin Ratio Lipase TSH 3rd Generation 4.73 H Venous Blood Potassium 4.0 Blood Type A POSITIVE Blood Type Confirm Antibody Screen Negative BBK History Checked No verified bt 07/28/17 12:30 WBC RBC Hgb Hct MCV MCH MCHC RDW Plt Count MPV Gran % Lymph % (Auto) Blaine % (Auto) Eos % (Auto) Baso % (Auto) Gran # Lymph # (Auto) Blaine # (Auto) Eos # (Auto) Baso # (Auto) Neutrophils % (Manual) Band Neutrophils % Lymphocytes % (Manual) Monocytes % (Manual) Eosinophils % (Manual) Platelet Evaluation Anisocytosis (manual) PT INR APTT pO2 VBG pH VBG pCO2 VBG HCO3 VBG Total CO2 VBG O2 Sat (Calc) VBG Base Excess VBG Potassium Sodium Chloride Glucose Lactate FiO2 Potassium Carbon Dioxide Anion Gap BUN Creatinine Est GFR ( Amer) Est GFR (Non-Af Amer) Random Glucose Calcium Total Bilirubin AST ALT Alkaline Phosphatase Troponin I Total Protein Albumin Globulin Albumin/Globulin Ratio Lipase TSH 3rd Generation Venous Blood Potassium Blood Type Blood Type Confirm A POSITIVE Antibody Screen BBK History Checked Assessment & Plan - Assessment and Plan (Free Text) Assessment: 61 F with a PMHx of Stage IV breast cancer with bone mets on chemotherapy, HTN, CAD, and OA presenting to the [facility] ED with complaints of diffuse papular, blanchable rash and generalized weakness x 4 days. Rash Medication vs infectious ESR, CRP fu plt wnl afebrile solumedrol 40 mg q12 benadryl 25mg prn pruritis broad spec abx, doxycycline ID consulted, Dr. Valencia SIRS tachycardic, leukocytosis and lactic acid 3.3 IVF NS@100ml/hr IV abx ID consulted HTN BP stable, holding parameters for home anti-htn continue to monitor Stage IV breast cancer with cris mets Oncologist Dr. Vicente in [place] for infusions continue to monitor Oxycodone 30mg q6 prn CAD asa, plavix lipid profile fu Subclinical hypothyroidism elevated TSH, fu free t4 Generalized weakness CTH negative PT/OT high fall risk continue to monitor GI/DVT ppx protonix lovenox Seen reviewed and discussed with attending Dr Bravo <David Bravo - Last Filed: 07/28/17 15:49> Results - Vital Signs Recent Vital Signs: Last Vital Signs Temp 98.2 F 07/28/17 11:49 Pulse 92 H 07/28/17 15:00 Resp 18 07/28/17 15:00 BP 130/79 07/28/17 15:00 Pulse Ox 98 07/28/17 15:00 - Labs Result Diagrams: 07/28/17 11:10 07/28/17 11:10 Attending/Attestation - Attestation I have personally seen and examined this patient.: Yes I have fully participated in the care of the patient.: Yes I have reviewed all pertinent clinical information: Yes Notes (Text): 07/28/17 15:42 61 year old female with past medical history of metastatic breast cancer, hypertension, CAD and recent MSSA bactermia infection s/p antibiotics therapy who was recently discharged from [place] presents today with complaint of generalized weakness and rash. Found to have SIRS (elevated WBC and LA) and generalized body rash. Will start on iv antibiotics, steroids and benadryl. Follow up on cultures. UA is pending. ID evaluation is requested. PT evaluation is also requested. David Bravo MD Hospitalist.
[2017-07-28] MEDS ORDERED: DAPTOmycin 500 mg Inj (Cubicin) IV SCH (15:00)
[2017-07-28 15:47] LABS: HDL CHOLESTEROL 22 mg/dL (29-60)
[2017-07-28 15:58] LABS: LDL CHOLESTEROL 74 mg/dL (0-129)
[2017-07-28 19:26] LABS: URINE BILIRUBIN NEGATIVE (NEGATIVE); URINE BLOOD NEGATIVE (NEGATIVE); URINE GLUCOSE (UA) NEGATIVE (NEGATIVE); URINE LEUKOCYTE ESTERASE TRACE Leu/uL (NEGATIVE); URINE PROTEIN NEGATIVE mg/dL (<30 mg/dL); URINE UROBILINOGEN 0.2 E.U./dL (<1 E.U./dL)
[2017-07-28 19:36] LABS: URINE APPEARANCE SL CLOUDY (CLEAR); URINE COLOR YELLOW (YELLOW)
[2017-07-28 19:37] LABS: URINE BACTERIA FEW (NEG); URINE RBC NEGATIVE /hpf (0-2)
[2017-07-28] MEDS: MethylPREDNISolone 40 mg Vial IVP SCH (21:21)
[2017-07-28] MEDS: oxyCODONE 30 mg Immediate Release Tab PO PRN (21:22)
[2017-07-29] MEDS: oxyCODONE 30 mg Immediate Release Tab PO PRN ×3 (06:53→18:56)
[2017-07-29 07:32] LABS: BASO # 0.08 K/mm3 (0.0-2.0); BASO % 0.4 % (0.0-3.0); EOS # 1.7 (0.0-0.7); EOS % 9.6 % (1.5-5.0); GRAN # 12.72 (1.4-6.5); GRAN % 70.5 % (50.0-68.0); LYMPH # 2.2 (1.2-3.4); LYMPH % 12.2 % (22.0-35.0); MEAN CELL VOLUME 83.7 fl (80.0-105.0); MEAN CORPUSCULAR HEMOGLOBIN 26.8 pg (25.0-35.0); MEAN PLATELET VOLUME 8.9 fl (7.0-11.0); MONO # 1.3 (0.1-0.6); MONO % 7.3 % (1.0-6.0); RBC 3.25 10^6/uL (3.5-6.1); RED CELL DISTRIBUTION WIDTH 18.2 % (11.5-14.5); WHITE BLOOD COUNT 18.1 10^3/ul (4.5-11.0)
[2017-07-29 07:41] LABS: HEMOGLOBIN 8.7 g/dL (12.0-16.0)
[2017-07-29 07:47] LABS: ALBUMIN 3.8 g/dL (3.0-4.8); ALT/SGPT 25 U/L (7-56); AST/SGOT 52 U/L (14-36); BLOOD UREA NITROGEN 25 mg/dL (7-21); GFR AFRICAN-AMERICAN > 60; GFR NON-AFRICAN AMERICAN 56
--- NOTE | 2017-07-29 08:54 | CARD ---
APPROVED REPORT EKG Measurement Heart [id number] <Conclusion> Sinus tachycardia QS in V1, possible septal MO, old Q in 3 Prolonged QTc
[2017-07-29] MEDS: MethylPREDNISolone 40 mg Vial IVP SCH ×2 (09:18→21:10)
[2017-07-29] MEDS: Enoxaparin 40 mg Syringe SC SCH (09:27)
--- NOTE | 2017-07-29 13:25 | CP.PCM.PN ---
<Jo-Ann Carlson - Last Filed: 07/29/17 14:51> Subjective - Date & Time of Evaluation Date of Evaluation: 07/29/17 Time of Evaluation: 13:23 - Subjective Subjective: Internal Medicine Progress Note: Patient seen and examined at bedside. Per nursing, no acute events overnight. Patient states that she has had this diffuse rash for the past week and it is still itchy. Worse on lower extremities. Offers no other complaints at this time. Denies headaches, dizziness, cp, palpitations, sob, abdominal pain, urinary symptoms. Objective - Vital Signs/Intake and Output Vital Signs (last 24 hours): Temp Pulse Resp BP Pulse Ox 97.5 F L 100 H 20 152/88 H 98 07/29/17 08:12 07/29/17 08:12 07/29/17 08:12 07/29/17 08:12 07/29/17 08:12 Intake and Output: 07/29/17 07/29/17 06:59 18:59 Intake Total 300 Balance 300 - Medications Medications: Current Medications Aspirin (Aspirin Chewable) 81 mg PO DAILY [facility] Last Admin: 07/29/17 09:27 Dose: Not Given Clopidogrel Bisulfate (Plavix) 75 mg PO DAILY [facility] Last Admin: 07/29/17 09:28 Dose: Not Given Diphenhydramine HCl (Benadryl) 25 mg PO Q6 PRN PRN Reason: Itching / Pruritus Last Admin: 07/29/17 12:46 Dose: 25 mg Docusate Sodium (Colace) 100 mg PO TID [facility] Last Admin: 07/29/17 09:29 Dose: Not Given Enoxaparin Sodium (Lovenox) 40 mg SC DAILY [facility] PRN Reason: Protocol Last Admin: 07/29/17 09:27 Dose: Not Given Sodium Chloride (Sodium Chloride 0.9%) 1,000 mls @ 100 mls/hr IV .Q10H [facility] Last Admin: 07/28/17 12:13 Dose: 100 mls/hr Doxycycline Hyclate 100 mg/ (Sodium Chloride) 100 mls @ 100 mls/hr IVPB Q12 [facility] PRN Reason: Protocol Last Admin: 07/29/17 09:20 Dose: 100 mls/hr Daptomycin 480 mg/ Sodium (Chloride) 100 mls @ 200 mls/hr IV Q24H [facility] Stop: 08/11/17 15:01 Last Admin: 07/28/17 17:36 Dose: 200 mls/hr Lisinopril (Zestril) 10 mg PO DAILY [facility] Last Admin: 07/29/17 09:28 Dose: Not Given Methylprednisolone (Solu-Medrol) 40 mg IVP Q12 [facility] Last Admin: 07/29/17 09:18 Dose: 40 mg Oxycodone HCl (Oxycodone Immediate Release Tab) 30 mg PO Q6H PRN PRN Reason: Pain, moderate (4-7) Last Admin: 07/29/17 12:45 Dose: 30 mg Pantoprazole Sodium (Protonix Inj) 40 mg IVP DAILY [facility] Last Admin: 07/29/17 09:20 Dose: 40 mg - Labs Labs: 07/29/17 07:00 07/29/17 07:00 PT 12.2 SECONDS (9.4-12.5) 07/28/17 11:10 INR 1.06 (0.93-1.08) 07/28/17 11:10 APTT 34.1 Seconds (25.1-36.5) 07/28/17 11:10 - Additional Findings Additional findings: - Constitutional Appears: No Acute Distress - Head Exam Head Exam: ATRAUMATIC, NORMAL INSPECTION, NORMOCEPHALIC - Eye Exam Eye Exam: EOMI, Normal appearance, PERRL Pupil Exam: NORMAL ACCOMODATION, PERRL - ENT Exam ENT Exam: Mucous Membranes Dry - Neck Exam Neck exam: Positive for: Normal Inspection - Respiratory Exam Respiratory Exam: Clear to Auscultation Bilateral, NORMAL BREATHING PATTERN - Cardiovascular Exam Cardiovascular Exam: Tachycardia, +S1, +S2 - GI/Abdominal Exam GI & Abdominal Exam: Normal Bowel Sounds, Soft. absent: Tenderness - Neurological Exam Neurological exam: Alert, CN II-XII Intact, Oriented x3, Reflexes Normal - Psychiatric Exam Psychiatric exam: Normal Affect, Normal Mood - Skin Skin Exam: Dry, Intact, Rash (Diffuse torso, back, bilateral upper and lower extremities), Warm Assessment and Plan - Assessment and Plan (Free Text) Assessment: Patient is a 61 year old female with a PMHx of Stage IV breast cancer with bone mets on chemotherapy, HTN, CAD, and OA presenting to the [facility] ED with complaints of diffuse papular, blanchable rash and generalized weakness x 4 days. Rash -Medication vs Infectious -Patient was on IV Naficillin 2gm Q6H outpatient for S. Aeurus bacteremia (no evidence on endocarditis) -CRP > 15, ESR 44 -Continue Solumedrol 40 mg q12 -Continue Vistaril 25mg PO Q8H prn pruritis -Antibiotics: Daptomycin 480mg IV daily, Doxycycline 100mg IV Q12 -ID consulted, Dr. Valencia, f/u recommendations -Patient may need biopsy -Will call pharmacy to verify medications SIRS -On admission patient was tachycardic, leukocytosis and lactic acid 3.3 -CXR: no active disease -WBC 18.1 today, procalcitonin 0.09 -Fluids discontinued -Continue IV abx -ID consulted, f/u recommendations Hypertension -BP stable -Lopressor 50mg PO BID -Hydralazine 50mg PO TID -Lisinopril 10mg PO daily -Continue to monitor Stage IV breast cancer with cris mets -Oncologist Dr. Vicente in [place] for infusions -Continue to monitor -Oxycodone 30mg q6 prn -Gabapentin 300mg PO TID -Head CT: no evidence of metastatic disease. mild chronic white matter ischemic changes CAD -Aspirin, plavix Subclinical hypothyroidism -Elevated TSH, Free t4 within normal limits -Repeat Thyroid studies in 4-6 weeks Generalized weakness -Head CT: no evidence of metastatic disease. mild chronic white matter ischemic changes -PT/OT -high fall risk -continue to monitor GI/DVT ppx -Protonix -Lovenox <Ignacio Silva - Last Filed: 08/01/17 13:32> Objective - Vital Signs/Intake and Output Vital Signs (last 24 hours): Temp Pulse Resp BP Pulse Ox 97.9 F 72 20 133/82 100 07/31/17 14:00 07/31/17 14:00 07/31/17 14:00 07/31/17 14:00 07/31/17 14:00 - Labs Labs: 07/30/17 07:00 07/30/17 07:00 PT 12.2 SECONDS (9.4-12.5) 07/28/17 11:10 INR 1.06 (0.93-1.08) 07/28/17 11:10 APTT 34.1 Seconds (25.1-36.5) 07/28/17 11:10 Attending/Attestation - Attestation I have personally seen and examined this patient.: Yes I have fully participated in the care of the patient.: Yes I have reviewed all pertinent clinical information, including history, physical exam and plan: Yes Notes (Text): 08/01/17 13:28 Medical record note made by the resident after discussion with my direction and input after the patient was personally seen and examined by me. I have reviewed the chart and agree that the record accurately reflects by personal performance of the history, physical exam, data review, and medical decision-making, in the course for the patient. I have also personally directed the plan of care. 61 year old female with PMH of metastatic breast cancer ,SP 4 weeks of IV antibiotic for gram positive bacteremia, CHF with both systolic and diastolic dysfunction (last Echo showed EF 40% and diastolic CHF) is admitted with Puritic generalized rash, likely allergic/atopic dermatitis less likely infectious. ID evaluation is appreciated.We will follow up cultures. Continue steroid and antibiotics. Management plan was discussed in detail with patient. Education was provided
--- NOTE | 2017-07-29 19:57 | CP.PCM.PN ---
Subjective - Date & Time of Evaluation Date of Evaluation: 07/29/17 Time of Evaluation: 19:56 - Subjective Subjective: # 22 angiocath was inserted in right distal forearm. Dx:Poor venous access. Objective - Vital Signs/Intake and Output Vital Signs (last 24 hours): Temp Pulse Resp BP Pulse Ox 98 F 80 20 152/83 H 98 07/29/17 14:00 07/29/17 14:00 07/29/17 14:00 07/29/17 14:17 07/29/17 14:00 Intake and Output: 07/29/17 07/30/17 18:59 06:59 Intake Total 200 Balance 200 - Medications Medications: Current Medications Aspirin (Aspirin Chewable) 81 mg PO DAILY [facility] Last Admin: 07/29/17 09:27 Dose: Not Given Clopidogrel Bisulfate (Plavix) 75 mg PO DAILY [facility] Last Admin: 07/29/17 09:28 Dose: Not Given Docusate Sodium (Colace) 100 mg PO TID [facility] Last Admin: 07/29/17 18:11 Dose: Not Given Enoxaparin Sodium (Lovenox) 40 mg SC DAILY [facility] PRN Reason: Protocol Last Admin: 07/29/17 09:27 Dose: Not Given Gabapentin (Neurontin) 300 mg PO TID [facility] PRN Reason: Protocol Last Admin: 07/29/17 18:10 Dose: 300 mg Hydralazine HCl (Apresoline) 50 mg PO TID [facility] Last Admin: 07/29/17 18:10 Dose: 50 mg Hydroxyzine Pamoate (Vistaril) 25 mg PO Q8 PRN; Protocol PRN Reason: Itching / Pruritus Last Admin: 07/29/17 15:38 Dose: 25 mg Doxycycline Hyclate 100 mg/ (Sodium Chloride) 100 mls @ 100 mls/hr IVPB Q12 [facility] PRN Reason: Protocol Last Admin: 07/29/17 09:20 Dose: 100 mls/hr Daptomycin 480 mg/ Sodium (Chloride) 100 mls @ 200 mls/hr IV Q24H [facility] Stop: 08/11/17 15:01 Last Admin: 07/29/17 15:44 Dose: 200 mls/hr Lisinopril (Zestril) 10 mg PO DAILY [facility] Last Admin: 07/29/17 09:28 Dose: Not Given Methylprednisolone (Solu-Medrol) 40 mg IVP Q12 [facility] Last Admin: 07/29/17 09:18 Dose: 40 mg Metoprolol Tartrate (Lopressor) 50 mg PO BID [facility] Last Admin: 07/29/17 18:10 Dose: 50 mg Oxycodone HCl (Oxycodone Immediate Release Tab) 30 mg PO Q6H PRN PRN Reason: Pain, moderate (4-7) Last Admin: 07/29/17 18:56 Dose: 30 mg Pantoprazole Sodium (Protonix Inj) 40 mg IVP DAILY [facility] Last Admin: 07/29/17 09:20 Dose: 40 mg - Labs Labs: 07/29/17 07:00 07/29/17 07:00 PT 12.2 SECONDS (9.4-12.5) 07/28/17 11:10 INR 1.06 (0.93-1.08) 07/28/17 11:10 APTT 34.1 Seconds (25.1-36.5) 07/28/17 11:10
--- NOTE | 2017-07-29 20:53 | CP.PCM.CON ---
History of Present Illness - History of Present Illness History of Present Illness: 61 year old female with PMH of breast cancer with bone metastases on chemotherapy, HTN, osteoporosis, former drug user came in to [facility] complaining of pruritic rash on her boys, arms and legs for the past 4 days. She was recently in [facility] for MSSA bacteremia and was sent to a rehab center and completed 4 weeks of Nafcillin a few days prior to the rash. The patient states that it stated simultaneously on her arms and legs and body. She has taking Benadryl for months now and it has not been helping much with her itching. She denies being bitten by insects, denies animal contacts, has not used any detergent, soap or new clothing, no fever or chills, no nausea or vomiting, no headache or dizziness, no chest pain, no abdominal pain, no cough or colds, no diarrhea, no dysuria. Infectious Diseases consult is requested to further evaluate and manage. Review of Systems - Review of Systems All systems: reviewed and no additional remarkable complaints except (as per HPI ) Past Patient History - Infectious Disease Hx of Infectious Diseases: None - Tetanus Immunizations Tetanus Immunization: Unknown - Past Social History Smoking Status: Never Smoked - CARDIAC Hx Pacemaker: No - PULMONARY Hx Respiratory Disorders: No - NEUROLOGICAL Hx Neurological Disorder: No - HEENT Hx HEENT Problems: No - RENAL Hx Chronic Kidney Disease: No - ENDOCRINE/METABOLIC Hx Endocrine Disorders: No - HEMATOLOGICAL/ONCOLOGICAL Hx Cancer: Yes - INTEGUMENTARY Hx Dermatological Problems: No - MUSCULOSKELETAL/RHEUMATOLOGICAL Hx Falls: No - GASTROINTESTINAL Hx Gastrointestinal Disorders: No - GENITOURINARY/GYNECOLOGICAL Hx Genitourinary Disorders: No - PSYCHIATRIC Hx Anxiety: Yes Hx Substance Use: No - SURGICAL HISTORY Hx Mastectomy: No Other/Comment: stage 4 breast, bone ca - ANESTHESIA Hx Anesthesia: Yes Hx Anesthesia Reactions: No Meds Allergies/Adverse Reactions: Allergies Allergy/AdvReac Type Severity Reaction Status Date / Time No Known Allergies Allergy Verified 07/28/17 11:57 - Medications Medications: Current Medications Aspirin (Aspirin Chewable) 81 mg PO DAILY [facility] Clopidogrel Bisulfate (Plavix) 75 mg PO DAILY [facility] Diphenhydramine HCl (Benadryl) 25 mg PO Q6 PRN PRN Reason: Itching / Pruritus Last Admin: 07/28/17 17:38 Dose: 25 mg Docusate Sodium (Colace) 100 mg PO TID [facility] Last Admin: 07/28/17 19:44 Dose: Not Given Enoxaparin Sodium (Lovenox) 40 mg SC DAILY [facility] PRN Reason: Protocol Last Admin: 07/28/17 14:35 Dose: 40 mg Sodium Chloride (Sodium Chloride 0.9%) 1,000 mls @ 100 mls/hr IV .Q10H [facility] Last Admin: 07/28/17 12:13 Dose: 100 mls/hr Doxycycline Hyclate 100 mg/ (Sodium Chloride) 100 mls @ 100 mls/hr IVPB Q12 [facility] PRN Reason: Protocol Last Admin: 07/28/17 21:24 Dose: 100 mls/hr Daptomycin 480 mg/ Sodium (Chloride) 100 mls @ 200 mls/hr IV Q24H [facility] Stop: 08/11/17 15:01 Last Admin: 07/28/17 17:36 Dose: 200 mls/hr Lisinopril (Zestril) 10 mg PO DAILY [facility] Methylprednisolone (Solu-Medrol) 40 mg IVP Q12 [facility] Last Admin: 07/28/17 21:21 Dose: 40 mg Oxycodone HCl (Oxycodone Immediate Release Tab) 30 mg PO Q6H PRN PRN Reason: Pain, moderate (4-7) Last Admin: 07/28/17 21:22 Dose: 30 mg Pantoprazole Sodium (Protonix Inj) 40 mg IVP DAILY [facility] Last Admin: 07/28/17 14:35 Dose: 40 mg Physical Exam - Constitutional Appears: Non-toxic, Chronically Ill - Head Exam Head Exam: NORMAL INSPECTION - Neck Exam Neck exam: Negative for: Meningismus - Respiratory Exam Respiratory Exam: Decreased Breath Sounds - Cardiovascular Exam Cardiovascular Exam: +S1, +S2 - GI/Abdominal Exam GI & Abdominal Exam: Soft, Tenderness - Skin Skin Exam: Rash (diffuse, on anterior and posterior torso, arms and legs, maculopapular, none on the face, no note of burrowing damico, areas of superficial excoriations) Results - Vital Signs Recent Vital Signs: Last Vital Signs Temp 98.2 F 07/28/17 16:00 Pulse 89 07/28/17 16:00 Resp 20 07/28/17 16:00 BP 126/68 07/28/17 16:00 Pulse Ox 98 07/28/17 16:00 - Labs Result Diagrams: 07/29/17 07:00 07/29/17 07:00 Labs: Laboratory Results - last 24 hr 07/28/17 07/28/17 07/28/17 15:00 15:00 15:00 ESR 44 H C-React Prot High Sens > 15.00 H Triglycerides Cholesterol LDL Cholesterol Direct HDL Cholesterol Procalcitonin 0.09 L Urine Color Urine Appearance Urine pH Ur Specific [place] Urine Protein Urine Glucose (UA) Urine Ketones Urine Blood Urine Nitrate Urine Bilirubin Urine Urobilinogen Ur Leukocyte Esterase Urine RBC Urine WBC Ur Epithelial Cells Urine Bacteria 07/28/17 07/28/17 15:00 19:00 ESR C-React Prot High Sens Triglycerides 152 Cholesterol 139 LDL Cholesterol Direct 74 HDL Cholesterol 22 L Procalcitonin Urine Color Yellow Urine Appearance Sl cloudy Urine pH 6.0 Ur Specific [place] <= 1.005 Urine Protein Negative Urine Glucose (UA) Negative Urine Ketones Negative Urine Blood Negative Urine Nitrate Negative Urine Bilirubin Negative Urine Urobilinogen 0.2 Ur Leukocyte Esterase Trace H Urine RBC Negative Urine WBC 1 - 3 Ur Epithelial Cells 1 - 3 Urine Bacteria Few Assessment & Plan - Assessment and Plan (Free Text) Plan: Assessment maculopapular rash with eosinophilia, consider allergic reaction R/O drug- induced history of sepsis due to Methicillin-sensitive Staph aureus bacteremia, source unclear HTN osteoporosis former drug user Plan completed 4 weeks of Nafcillin - started Daptomycin pending repeat blood cx patient has been started on Steroids and antihistamines and will monitor clinical response; HIV test from 2017 is negative
[2017-07-30] MEDS: oxyCODONE 30 mg Immediate Release Tab PO PRN ×3 (05:14→21:24)
[2017-07-30] MEDS: Pantoprazole 40 mg EC Tab PO SCH (06:43)
[2017-07-30 07:29] LABS: BASO # 0.1 K/mm3 (0.0-2.0); BASO % 0.4 % (0.0-3.0); EOS # 3.3 (0.0-0.7); EOS % 12.2 % (1.5-5.0); GRAN # 18.62 (1.4-6.5); GRAN % 69.7 % (50.0-68.0); HEMOGLOBIN 8.4 g/dL (12.0-16.0); LYMPH # 2.7 (1.2-3.4); LYMPH % 10.3 % (22.0-35.0); MEAN CELL VOLUME 84.4 fl (80.0-105.0); MEAN CORPUSCULAR HEMOGLOBIN 26.7 pg (25.0-35.0); MEAN CORPUSCULAR HGB CONC 31.6 g/dl (31.0-37.0); MEAN PLATELET VOLUME 8.8 fl (7.0-11.0); MONO % 7.4 % (1.0-6.0); RBC 3.15 10^6/uL (3.5-6.1); RED CELL DISTRIBUTION WIDTH 18.8 % (11.5-14.5)
[2017-07-30 07:32] LABS: WHITE BLOOD COUNT 26.7 10^3/ul (4.5-11.0)
[2017-07-30 07:48] LABS: ALBUMIN 4.1 g/dL (3.0-4.8); ALT/SGPT 30 U/L (7-56); AST/SGOT 77 U/L (14-36); BLOOD UREA NITROGEN 30 mg/dL (7-21); CALCIUM 9.6 mg/dL (8.4-10.5); GFR AFRICAN-AMERICAN > 60; GFR NON-AFRICAN AMERICAN > 60
[2017-07-30] MEDS ORDERED: MethylPREDNISolone 40 mg Vial IVP SCH (10:00)
--- NOTE | 2017-07-30 10:07 | CP.PCM.PN ---
<Jo-Ann Carlson - Last Filed: 07/30/17 13:56> Subjective - Date & Time of Evaluation Date of Evaluation: 07/30/17 Time of Evaluation: 10:06 - Subjective Subjective: Internal Medicine Progress Note: Patient seen and examined at bedside. Per nursing no acute events overnight. Patient is doing well, states that itchiness has improved mildly. Offers no other complaints at this time. Denies headaches, dizziness, cp, palpitations, sob, abdominal pain, urinary symptoms, changes in bowel habits. Objective - Vital Signs/Intake and Output Vital Signs (last 24 hours): Temp Pulse Resp BP Pulse Ox 98.3 F 79 20 156/86 H 98 07/30/17 08:05 07/30/17 08:05 07/30/17 08:05 07/30/17 08:05 07/30/17 08:05 Intake and Output: 07/30/17 07/30/17 06:59 18:59 Intake Total 1020 Balance 1020 - Medications Medications: Current Medications Aspirin (Aspirin Chewable) 81 mg PO DAILY [facility] [place] Last Admin: 07/29/17 09:27 Dose: Not Given Clopidogrel Bisulfate (Plavix) 75 mg PO DAILY [facility] [place] Last Admin: 07/29/17 09:28 Dose: Not Given Docusate Sodium (Colace) 100 mg PO TID [facility] [place] Last Admin: 07/29/17 18:11 Dose: Not Given Enoxaparin Sodium (Lovenox) 40 mg SC DAILY [facility] [place] PRN Reason: Protocol Last Admin: 07/29/17 09:27 Dose: Not Given Gabapentin (Neurontin) 300 mg PO TID [facility] [place] PRN Reason: Protocol Last Admin: 07/29/17 18:10 Dose: 300 mg Hydralazine HCl (Apresoline) 50 mg PO TID [facility] [place] Last Admin: 07/29/17 18:10 Dose: 50 mg Hydroxyzine Pamoate (Vistaril) 25 mg PO Q8 PRN; Protocol PRN Reason: Itching / Pruritus Last Admin: 07/29/17 21:10 Dose: 25 mg Doxycycline Hyclate 100 mg/ (Sodium Chloride) 100 mls @ 100 mls/hr IVPB Q12 [facility] PRN Reason: Protocol Last Admin: 07/29/17 22:10 Dose: 100 mls/hr Daptomycin 480 mg/ Sodium (Chloride) 100 mls @ 200 mls/hr IV Q24H [facility] [place] Stop: 08/11/17 15:01 Last Admin: 07/29/17 15:44 Dose: 200 mls/hr Lisinopril (Zestril) 10 mg PO DAILY [facility] [place] Last Admin: 07/29/17 09:28 Dose: Not Given Metoprolol Tartrate (Lopressor) 50 mg PO BID [facility] [place] Last Admin: 07/29/17 18:10 Dose: 50 mg Oxycodone HCl (Oxycodone Immediate Release Tab) 30 mg PO Q6H PRN PRN Reason: Pain, moderate (4-7) Last Admin: 07/30/17 05:14 Dose: 30 mg Pantoprazole Sodium (Protonix Ec Tab) 40 mg PO 0600 [facility] [place] Last Admin: 07/30/17 06:43 Dose: 40 mg Prednisone (Prednisone Tab) 40 mg PO DAILY [facility] [place] - Labs Labs: 07/30/17 07:00 07/30/17 07:00 PT 12.2 SECONDS (9.4-12.5) 07/28/17 11:10 INR 1.06 (0.93-1.08) 07/28/17 11:10 APTT 34.1 Seconds (25.1-36.5) 07/28/17 11:10 - Additional Findings Additional findings: - Constitutional Appears: No Acute Distress - Head Exam Head Exam: ATRAUMATIC, NORMAL INSPECTION, NORMOCEPHALIC - Eye Exam Eye Exam: EOMI, Normal appearance, PERRL Pupil Exam: NORMAL ACCOMODATION, PERRL - ENT Exam ENT Exam: Mucous Membranes Dry - Neck Exam Neck exam: Positive for: Normal Inspection - Respiratory Exam Respiratory Exam: Clear to Auscultation Bilateral, NORMAL BREATHING PATTERN - Cardiovascular Exam Cardiovascular Exam: Regular rate and rhythm, +S1, +S2 - GI/Abdominal Exam GI & Abdominal Exam: Normal Bowel Sounds, Soft. absent: Tenderness - Neurological Exam Neurological exam: Alert, CN II-XII Intact, Oriented x3, Reflexes Normal - Psychiatric Exam Psychiatric exam: Normal Affect, Normal Mood - Skin Skin Exam: Dry, Intact, Rash (Diffuse torso, back, bilateral upper and lower extremities), Warm Assessment and Plan - Assessment and Plan (Free Text) Assessment: Patient is a 61 year old female with a PMHx of Stage IV breast cancer with bone mets on chemotherapy, HTN, CAD, and OA presenting to the [facility] with complaints of diffuse papular, blanchable rash and generalized weakness x 4 days. Diffuse Maculopapular Rash with eosinophilia -Medication vs Infectious -Patient was on IV Naficillin 2gm Q6H outpatient for S. Aeurus bacteremia (no evidence on endocarditis) -CRP > 15, ESR 44 -Will taper steroids, prednisone 40mg PO daily -Continue Vistaril 25mg PO Q8H prn pruritis -Hydrocortisone cream BID -Antibiotics: Daptomycin 480mg IV daily, Doxycycline 100mg IV Q12 -Repeat Blood cultures showing no growth x 24 hours -ID consulted, Dr. Valencia, f/u recommendations History of CHF -Lasix 20mg IV daily -Strict I/Os -Daily weights -Lower extremity edema, f/u dopplers SIRS -On admission patient was tachycardic, leukocytosis and lactic acid 3.3 -WBC 26 today, likely reactive 2/2 steroid use; infectious etiology less likely , afebrile, negative blood cultures -Procalcitonin 0.09 -Will discuss discontinuing antibiotics with Infectious Disease -ID consulted, f/u recommendations Hypertension -BP stable -Lopressor 50mg PO BID -Hydralazine 50mg PO TID -Lisinopril 10mg PO daily -Continue to monitor Stage IV breast cancer with cris mets -Oncologist Dr. Vicente in [place] for infusions -Continue to monitor -Oxycodone 30mg q6 prn -Gabapentin 300mg PO TID -Head CT: no evidence of metastatic disease. mild chronic white matter ischemic changes CAD -Aspirin, plavix Subclinical hypothyroidism -Elevated TSH, Free t4 within normal limits -Repeat Thyroid studies in 4-6 weeks Generalized weakness -Head CT: no evidence of metastatic disease. mild chronic white matter ischemic changes -Physical therapy recommending home for disposition -high fall risk -continue to monitor Lower extremity Swelling -Venous dopplers ordered GI/DVT ppx -Protonix -Lovenox <Ignacio Silva - Last Filed: 08/01/17 13:40> Objective - Vital Signs/Intake and Output Vital Signs (last 24 hours): Temp Pulse Resp BP Pulse Ox 97.9 F 72 20 133/82 100 07/31/17 14:00 07/31/17 14:00 07/31/17 14:00 07/31/17 14:00 07/31/17 14:00 - Labs Labs: 07/30/17 07:00 07/30/17 07:00 PT 12.2 SECONDS (9.4-12.5) 07/28/17 11:10 INR 1.06 (0.93-1.08) 07/28/17 11:10 APTT 34.1 Seconds (25.1-36.5) 07/28/17 11:10 Attending/Attestation - Attestation I have personally seen and examined this patient.: Yes I have fully participated in the care of the patient.: Yes I have reviewed all pertinent clinical information, including history, physical exam and plan: Yes Notes (Text): 08/01/17 13:38 Medical record note made by the resident after discussion with my direction and input after the patient was personally seen and examined by me. I have reviewed the chart and agree that the record accurately reflects by personal performance of the history, physical exam, data review, and medical decision-making, in the course for the patient. I have also personally directed the plan of care. 61 year old female with PMH of metastatic breast cancer ,SP 4 weeks of IV antibiotic for gram positive bacteremia, CHF with both systolic and diastolic dysfunction (last Echo showed EF 40% and diastolic CHF) was admitted with Puritic generalized rash, likely allergic/atopic dermatitis less likely infectious. Blood cultures are negative for any growth.IV daptomycin is discontinued. Patient has Leukocytosis , this is due to Steroid.Patient is afebrile.Rash is improving. Doppler is negative for DVT.Patient has significant leg edema.We will start patient on lasix. Management plan was discussed in detail with patient. Education was provided
[2017-07-30] MEDS: Enoxaparin 40 mg Syringe SC SCH ×2 (11:17→11:31)
[2017-07-30] MEDS: Hydrocortisone 1% Cream (30 GM) TOP SCH ×2 (14:29→18:33)
--- NOTE | 2017-07-30 14:31 | US ---
PROCEDURE: Right lower extremity venous US HISTORY: Leg pain and swelling. Evaluate for DVT. PHYSICIAN(S): Riki Cox M.D. TECHNIQUE: Duplex sonography and color-flow Doppler with graded compression were used to evaluate the deep venous system of the right lower extremity. FINDINGS: The visualized deep venous system of the right lower extremity is sonographically normal and compressible. Normal waveforms and augmentation are seen. There is no sonographic evidence for deep venous thrombosis in the visualized segments of the right lower extremity. IMPRESSION: 1. No sonographic evidence for deep venous thrombosis in the visualized segments of the right lower extremity.
--- NOTE | 2017-07-30 18:07 | US ---
PROCEDURE: Left lower extremity venous US HISTORY: Leg pain and swelling. Evaluate for DVT. PHYSICIAN(S): Riki Cox MD. TECHNIQUE: Duplex sonography and color-flow Doppler with graded compression were used to evaluate the deep venous system of the left lower extremity. FINDINGS: The visualized deep venous system of the left lower extremity is sonographically normal and compressible. Normal wave forms and augmentation are seen. There is no sonographic evidence for deep venous thrombosis in the visualized segments of the left lower extremity. IMPRESSION: 1. No sonographic evidence for deep venous thrombosis in the visualized segments of the left lower extremity.
--- NOTE | 2017-07-31 04:43 | PN ---
DATE: 07/30/2017 SUBJECTIVE: Patient is in bed, in no acute distress, nontoxic. Patient was seen earlier this morning. PHYSICAL EXAMINATION: VITAL SIGNS: Temperature is 98, blood pressure is 140/70, respiratory rate of 20, heart rate of 64. HEENT: Unremarkable. NECK: Supple. LUNGS: Have decreased breath sounds. HEART: Normal S1 and S2. ABDOMEN: Soft and nontender. LABORATORY EXAMINATION: Reveals a white count of 26,000, hemoglobin of 8, platelets of 363. Chemistries reveal a BUN of 30, creatinine of 0.8. Procalcitonin is 0.09. Urinalysis is unremarkable. Microbiology reveals blood cultures, no growth. Urine cultures, probable contamination. Review of the orders reveals the patient to be on IV doxycycline and also patient is on p.o. prednisone. Patient had an ultrasound of her extremity, no evidence of DVT. ASSESSMENT AND PLAN: This is a 61-year-old female who was seen earlier this morning with maculopapular rash, eosinophilia, drug induced; history of sepsis with sensitive Staphylococcus aureus bacteremia, completed 4 weeks of nafcillin, started on doxycycline and we will repeat blood cultures and we will change the doxycycline to p.o. Patient's rash at this morning was improved and review of the cultures from previous admissions and cultures were positive on 06/16, one bottle; 06/21 was the first time the cultures were negative, and patient had received 4 weeks of nafcillin and repeat blood cultures are negative. No need for daptomycin at this point. Sed rate of 44 and C-reactive protein of greater than 15, with sensitive Staphylococcus aureus, unknown source. sed rate changed from 71 to 44 with C-reactive protein still greater than 15. We will follow closely with you. Jamel Valencia MD
[2017-07-31] MEDS: Pantoprazole 40 mg EC Tab PO SCH (06:36)
[2017-07-31] MEDS: oxyCODONE 30 mg Immediate Release Tab PO PRN ×2 (06:38→13:07)
[2017-07-31 07:50] VITALS: RESP 20
--- NOTE | 2017-07-31 09:36 | CP.PCM.DIS ---
<Jo-Ann Carlson - Last Filed: 07/31/17 15:08> Provider - Provider Date of Admission: 07/28/17 13:17 Attending physician: Ignacio Silva MD Consults: ID: [id number] Time Spent in preparation of Discharge (in minutes): 35 Hospital Course - Lab Results Lab Results: Micro Results 07/28/17 19:00 Urine,Clean Catch Urine Culture - Final 10-50,000 CFU/ML. MULTIPLE SPECIES. PROBABLE CONTAMINATION. Most Recent Lab Values WBC 26.7 10^3/ul (4.5-11.0) H* D 07/30/17 07:00 RBC 3.15 10^6/uL (3.5-6.1) L 07/30/17 07:00 Hgb 8.4 g/dL (12.0-16.0) L 07/30/17 07:00 Hct 26.6 % (36.0-48.0) L 07/30/17 07:00 MCV 84.4 fl (80.0-105.0) 07/30/17 07:00 MCH 26.7 pg (25.0-35.0) 07/30/17 07:00 MCHC 31.6 g/dl (31.0-37.0) 07/30/17 07:00 RDW 18.8 % (11.5-14.5) H 07/30/17 07:00 Plt Count 353 10^3/uL (120.0-450.0) 07/30/17 07:00 MPV 8.8 fl (7.0-11.0) 07/30/17 07:00 Gran % 69.7 % (50.0-68.0) H 07/30/17 07:00 Lymph % (Auto) 10.3 % (22.0-35.0) L 07/30/17 07:00 [place] % (Auto) 7.4 % (1.0-6.0) H 07/30/17 07:00 Eos % (Auto) 12.2 % (1.5-5.0) H 07/30/17 07:00 Baso % (Auto) 0.4 % (0.0-3.0) 07/30/17 07:00 Gran # 18.62 (1.4-6.5) H 07/30/17 07:00 Lymph # (Auto) 2.7 (1.2-3.4) 07/30/17 07:00 [place] # (Auto) 2.0 (0.1-0.6) H 07/30/17 07:00 Eos # (Auto) 3.3 (0.0-0.7) H 07/30/17 07:00 Baso # (Auto) 0.10 K/mm3 (0.0-2.0) 07/30/17 07:00 Neutrophils % (Manual) 52 % (50.0-70.0) 07/28/17 11:10 Band Neutrophils % 1 % (0-2) 07/28/17 11:10 Lymphocytes % (Manual) 6 % (22.0-35.0) L 07/28/17 11:10 Monocytes % (Manual) 12 % (1.0-6.0) H 07/28/17 11:10 Eosinophils % (Manual) 29 % (0.0-3.0) H 07/28/17 11:10 Platelet Evaluation Normal (NORMAL) 07/28/17 11:10 Anisocytosis (manual) 1+ 07/28/17 11:10 ESR 44 mm/hr (0.0-20.0) H 07/28/17 15:00 PT 12.2 SECONDS (9.4-12.5) 07/28/17 11:10 INR 1.06 (0.93-1.08) 07/28/17 11:10 APTT 34.1 Seconds (25.1-36.5) 07/28/17 11:10 pO2 71 mm/Hg (30-55) H 07/28/17 11:10 VBG pH 7.37 (7.32-7.43) 07/28/17 11:10 VBG pCO2 47.0 (40-60) 07/28/17 11:10 VBG HCO3 27.2 mmol/l (21-28) 07/28/17 11:10 VBG Total CO2 28.6 mmol.L (22-28) H 07/28/17 11:10 VBG O2 Sat (Calc) 97.4 % (40-65) H 07/28/17 11:10 VBG Base Excess 1.3 mmol/L (0.0-2.0) 07/28/17 11:10 VBG Potassium 4.0 mmol/L (3.6-5.2) 07/28/17 11:10 Sodium 132.0 mmol/L (132-148) 07/28/17 11:10 Chloride 98.0 mmol/L (98-107) 07/28/17 11:10 Glucose 114 mg/dl (65-105) H 07/28/17 11:10 Lactate 3.3 mmol/L (0.7-2.1) H 07/28/17 11:10 FiO2 21.0 % 07/28/17 11:10 Sodium 135 mmol/L (132-148) 07/30/17 07:00 Potassium 4.8 mmol/L (3.6-5.0) 07/30/17 07:00 Chloride 96 mmol/L (98-107) L 07/30/17 07:00 Carbon Dioxide 30 mmol/L (21-33) 07/30/17 07:00 Anion Gap 14 (10-20) 07/30/17 07:00 BUN 30 mg/dL (7-21) H 07/30/17 07:00 Creatinine 0.8 mg/dl (0.7-1.2) 07/30/17 07:00 Est GFR ( Amer) > 60 07/30/17 07:00 Est GFR (Non-Af Amer) > 60 07/30/17 07:00 Random Glucose 100 mg/dL (70-110) 07/30/17 07:00 Calcium 9.6 mg/dL (8.4-10.5) 07/30/17 07:00 Phosphorus 2.6 mg/dL (2.5-4.5) 07/30/17 07:00 Magnesium 2.1 mg/dL (1.7-2.2) 07/30/17 07:00 Total Bilirubin 0.8 mg/dL (0.2-1.3) 07/30/17 07:00 AST 77 U/L (14-36) H D 07/30/17 07:00 ALT 30 U/L (7-56) 07/30/17 07:00 Alkaline Phosphatase 77 U/L (38-126) 07/30/17 07:00 Troponin I < 0.01 ng/mL D 07/28/17 11:10 C-React Prot High Sens > 15.00 mg/L (1.00-3.00) H 07/28/17 15:00 Total Protein 8.1 g/dL (5.8-8.3) 07/30/17 07:00 Albumin 4.1 g/dL (3.0-4.8) 07/30/17 07:00 Globulin 4.0 gm/dL 07/30/17 07:00 Albumin/Globulin Ratio 1.0 (1.1-1.8) L 07/30/17 07:00 Triglycerides 152 mg/dL (35-160) 07/28/17 15:00 Cholesterol 139 mg/dL (130-200) 07/28/17 15:00 LDL Cholesterol Direct 74 mg/dL (0-129) 07/28/17 15:00 HDL Cholesterol 22 mg/dL (29-60) L 07/28/17 15:00 Lipase 26 U/L (23-300) 07/28/17 11:10 Procalcitonin 0.09 NG/ML (0.19-0.49) L 07/28/17 15:00 Free T4 0.94 ng/dL (0.78-2.19) 07/29/17 07:00 TSH 3rd Generation 4.73 mIU/mL (0.46-4.68) H 07/28/17 11:10 Venous Blood Potassium 4.0 mmol/L (3.6-5.2) 07/28/17 11:10 Urine Color Yellow (YELLOW) 07/28/17 19:00 Urine Appearance Sl cloudy (CLEAR) 07/28/17 19:00 Urine pH 6.0 (4.7-8.0) 07/28/17 19:00 Ur Specific [place] <= 1.005 (1.005-1.035) 07/28/17 19:00 Urine Protein Negative mg/dL (<30 mg/dL) 07/28/17 19:00 Urine Glucose (UA) Negative mg/dL (NEGATIVE) 07/28/17 19:00 Urine Ketones Negative mg/dL (NEGATIVE) 07/28/17 19:00 Urine Blood Negative (NEGATIVE) 07/28/17 19:00 Urine Nitrate Negative (NEGATIVE) 07/28/17 19:00 Urine Bilirubin Negative (NEGATIVE) 07/28/17 19:00 Urine Urobilinogen 0.2 E.U./dL (<1 E.U./dL) 07/28/17 19:00 Ur Leukocyte Esterase Trace Simba/uL (NEGATIVE) H 07/28/17 19:00 Urine RBC Negative /hpf (0-2) 07/28/17 19:00 Urine WBC 1 - 3 /hpf (0-6) 07/28/17 19:00 Ur Epithelial Cells 1 - 3 /hpf (0-5) 07/28/17 19:00 Urine Bacteria Few (NEG) 07/28/17 19:00 Blood Type A POSITIVE 07/28/17 11:10 Blood Type Confirm A POSITIVE 07/28/17 12:30 Antibody Screen Negative 07/28/17 11:10 BBK History Checked No verified bt 07/28/17 11:10 - Hospital Course Hospital Course: History of Present Illness: Patient is a 61 F with a PMHx of Stage IV breast cancer with bone mets on chemotherapy, HTN, CAD, and OA presenting to the [facility] ED with complaints of diffuse papular, blanchable rash and generalized weakness x 4 days. Pt was recently discharged from [facility] after 4 weeks of IV abx treatment for MSSA bacteremia. Pt developed the rash when the abx were stopped, prior to discharge. Pt states that the rash has progressively worsened with worsening distribution and associated swelling and pruritis. Pt did report a sick contact at home, her friend who stated she was sick brought the patient some food. Pt also has complaints of generealized weakness that began roughly the same time as the rash. She claims she felt fine while at rehab center. Pt was seen and examined at bedside. Pt denied fever, chills, shortness of breath, cough, chest pains, abdominal pains, nausea, vomiting, diarrhea, constipation or dysuria. Hospital Course: Patient was admitted to Med/Surg and started on IV daptomycin and IV doxycycline. CT head showed no evidence of metastatic disease (see full report) . ID was consulted and on the case. Patient was started on IV solumedrol as well. Blood cultures returned showing no growth x 3 days. Daptomycin was discontinued. Patient was having lower extremity swelling. Lower extremity dopplers that were negative for DVT. Patient Was started on lasix. Physical therapy recommended home for disposition. Patient with leukocytosis, this is likely reactive due to steroids. Patient was afebrile, cultures negative. Advised to repeat CBC and BMP within 1 week. Patient to continue Doxycycline PO and Prednisone taper. On day of discharge, patient was doing well. Rash and pruritis was improving. Patient denies headaches, dizziness, cp, palpitations, sob, abdominal pain, urinary symptoms. Patient medically stable for discharge home. Patient to follow up with PMD and oncologist upon discharge home. Discharge Medications: -Prednisone Taper -Lasix 20mg PO daily -Potassium 20meq PO daily -Doxycycline 100mg PO Q12 x 5 days -Vistiril 25mg PO Q8H prn pruritis -Betamethasone cream Discharge Exam - Head Exam Head Exam: NORMAL INSPECTION Discharge Plan - Discharge Medications Prescriptions: Betamethasone/Propylene Glyc [Betamethasone Dp Aug 0.05% Crm] 50 gm TP BID PRN # 1 cream..g. PRN Reason: Itching / Pruritus Doxycycline Hyclate 100 mg PO Q12H #10 capsule Furosemide [Lasix] 20 mg PO DAILY #7 tablet Hydroxyzine Pamoate [Vistaril] 25 mg PO Q8H PRN #30 capsule PRN Reason: Itching / Pruritus Potassium Chloride [K-Dur 20] 20 meq PO DAILY #7 tab predniSONE [predniSONE Tab] See Taper PO DAILY #3 tab - Follow Up Plan Condition: STABLE Disposition: HOME/ ROUTINE Additional Instructions: You are being discharged to home. 1. Please continue medications as prescribed 2. Please continue antibiotics as prescribed 3. White blood cell count was elevated likely reactive due to steroid use, please repeat CBC/BMP within 1 week 4. Please follow up with Oncologist and PMD within 1 week. Can ask PMD for dermatology referral. <Ignacio Silva - Last Filed: 08/01/17 13:44> Provider - Provider Date of Admission: 07/28/17 13:17 Attending physician: Ignacio Silva MD Hospital Course - Lab Results Lab Results: Micro Results 07/28/17 19:00 Urine,Clean Catch Urine Culture - Final 10-50,000 CFU/ML. MULTIPLE SPECIES. PROBABLE CONTAMINATION. Most Recent Lab Values WBC 26.7 10^3/ul (4.5-11.0) H* D 07/30/17 07:00 RBC 3.15 10^6/uL (3.5-6.1) L 07/30/17 07:00 Hgb 8.4 g/dL (12.0-16.0) L 07/30/17 07:00 Hct 26.6 % (36.0-48.0) L 07/30/17 07:00 MCV 84.4 fl (80.0-105.0) 07/30/17 07:00 MCH 26.7 pg (25.0-35.0) 07/30/17 07:00 MCHC 31.6 g/dl (31.0-37.0) 07/30/17 07:00 RDW 18.8 % (11.5-14.5) H 07/30/17 07:00 Plt Count 353 10^3/uL (120.0-450.0) 07/30/17 07:00 MPV 8.8 fl (7.0-11.0) 07/30/17 07:00 Gran % 69.7 % (50.0-68.0) H 07/30/17 07:00 Lymph % (Auto) 10.3 % (22.0-35.0) L 07/30/17 07:00 Child[place] % (Auto) 7.4 % (1.0-6.0) H 07/30/17 07:00 Eos % (Auto) 12.2 % (1.5-5.0) H 07/30/17 07:00 Baso % (Auto) 0.4 % (0.0-3.0) 07/30/17 07:00 Gran # 18.62 (1.4-6.5) H 07/30/17 07:00 Lymph # (Auto) 2.7 (1.2-3.4) 07/30/17 07:00 [place] # (Auto) 2.0 (0.1-0.6) H 07/30/17 07:00 Eos # (Auto) 3.3 (0.0-0.7) H 07/30/17 07:00 Baso # (Auto) 0.10 K/mm3 (0.0-2.0) 07/30/17 07:00 Neutrophils % (Manual) 52 % (50.0-70.0) 07/28/17 11:10 Band Neutrophils % 1 % (0-2) 07/28/17 11:10 Lymphocytes % (Manual) 6 % (22.0-35.0) L 07/28/17 11:10 Monocytes % (Manual) 12 % (1.0-6.0) H 07/28/17 11:10 Eosinophils % (Manual) 29 % (0.0-3.0) H 07/28/17 11:10 Platelet Evaluation Normal (NORMAL) 07/28/17 11:10 Anisocytosis (manual) 1+ 07/28/17 11:10 ESR 44 mm/hr (0.0-20.0) H 07/28/17 15:00 PT 12.2 SECONDS (9.4-12.5) 07/28/17 11:10 INR 1.06 (0.93-1.08) 07/28/17 11:10 APTT 34.1 Seconds (25.1-36.5) 07/28/17 11:10 pO2 71 mm/Hg (30-55) H 07/28/17 11:10 VBG pH 7.37 (7.32-7.43) 07/28/17 11:10 VBG pCO2 47.0 (40-60) 07/28/17 11:10 VBG HCO3 27.2 mmol/l (21-28) 07/28/17 11:10 VBG Total CO2 28.6 mmol.L (22-28) H 07/28/17 11:10 VBG O2 Sat (Calc) 97.4 % (40-65) H 07/28/17 11:10 VBG Base Excess 1.3 mmol/L (0.0-2.0) 07/28/17 11:10 VBG Potassium 4.0 mmol/L (3.6-5.2) 07/28/17 11:10 Sodium 132.0 mmol/L (132-148) 07/28/17 11:10 Chloride 98.0 mmol/L (98-107) 07/28/17 11:10 Glucose 114 mg/dl (65-105) H 07/28/17 11:10 Lactate 3.3 mmol/L (0.7-2.1) H 07/28/17 11:10 FiO2 21.0 % 07/28/17 11:10 Sodium 135 mmol/L (132-148) 07/30/17 07:00 Potassium 4.8 mmol/L (3.6-5.0) 07/30/17 07:00 Chloride 96 mmol/L (98-107) L 07/30/17 07:00 Carbon Dioxide 30 mmol/L (21-33) 07/30/17 07:00 Anion Gap 14 (10-20) 07/30/17 07:00 BUN 30 mg/dL (7-21) H 07/30/17 07:00 Creatinine 0.8 mg/dl (0.7-1.2) 07/30/17 07:00 Est GFR ( Amer) > 60 07/30/17 07:00 Est GFR (Non-Af Amer) > 60 07/30/17 07:00 Random Glucose 100 mg/dL (70-110) 07/30/17 07:00 Calcium 9.6 mg/dL (8.4-10.5) 07/30/17 07:00 Phosphorus 2.6 mg/dL (2.5-4.5) 07/30/17 07:00 Magnesium 2.1 mg/dL (1.7-2.2) 07/30/17 07:00 Total Bilirubin 0.8 mg/dL (0.2-1.3) 07/30/17 07:00 AST 77 U/L (14-36) H D 07/30/17 07:00 ALT 30 U/L (7-56) 07/30/17 07:00 Alkaline Phosphatase 77 U/L (38-126) 07/30/17 07:00 Troponin I < 0.01 ng/mL D 07/28/17 11:10 C-React Prot High Sens > 15.00 mg/L (1.00-3.00) H 07/28/17 15:00 Total Protein 8.1 g/dL (5.8-8.3) 07/30/17 07:00 Albumin 4.1 g/dL (3.0-4.8) 07/30/17 07:00 Globulin 4.0 gm/dL 07/30/17 07:00 Albumin/Globulin Ratio 1.0 (1.1-1.8) L 07/30/17 07:00 Triglycerides 152 mg/dL (35-160) 07/28/17 15:00 Cholesterol 139 mg/dL (130-200) 07/28/17 15:00 LDL Cholesterol Direct 74 mg/dL (0-129) 07/28/17 15:00 HDL Cholesterol 22 mg/dL (29-60) L 07/28/17 15:00 Lipase 26 U/L (23-300) 07/28/17 11:10 Procalcitonin 0.09 NG/ML (0.19-0.49) L 07/28/17 15:00 Free T4 0.94 ng/dL (0.78-2.19) 07/29/17 07:00 TSH 3rd Generation 4.73 mIU/mL (0.46-4.68) H 07/28/17 11:10 Venous Blood Potassium 4.0 mmol/L (3.6-5.2) 07/28/17 11:10 Urine Color Yellow (YELLOW) 07/28/17 19:00 Urine Appearance Sl cloudy (CLEAR) 07/28/17 19:00 Urine pH 6.0 (4.7-8.0) 07/28/17 19:00 Ur Specific [place] <= 1.005 (1.005-1.035) 07/28/17 19:00 Urine Protein Negative mg/dL (<30 mg/dL) 07/28/17 19:00 Urine Glucose (UA) Negative mg/dL (NEGATIVE) 07/28/17 19:00 Urine Ketones Negative mg/dL (NEGATIVE) 07/28/17 19:00 Urine Blood Negative (NEGATIVE) 07/28/17 19:00 Urine Nitrate Negative (NEGATIVE) 07/28/17 19:00 Urine Bilirubin Negative (NEGATIVE) 07/28/17 19:00 Urine Urobilinogen 0.2 E.U./dL (<1 E.U./dL) 07/28/17 19:00 Ur Leukocyte Esterase Trace Simba/uL (NEGATIVE) H 07/28/17 19:00 Urine RBC Negative /hpf (0-2) 07/28/17 19:00 Urine WBC 1 - 3 /hpf (0-6) 07/28/17 19:00 Ur Epithelial Cells 1 - 3 /hpf (0-5) 07/28/17 19:00 Urine Bacteria Few (NEG) 07/28/17 19:00 Blood Type A POSITIVE 07/28/17 11:10 Blood Type Confirm A POSITIVE 07/28/17 12:30 Antibody Screen Negative 07/28/17 11:10 BBK History Checked No verified bt 07/28/17 11:10 Attending/Attestation - Attestation I have personally seen and examined this patient.: Yes I have fully participated in the care of the patient.: Yes I have reviewed all pertinent clinical information, including history, physical exam and plan: Yes Notes (Text): 08/01/17 13:41 Medical record note made by the resident after discussion with my direction and input after the patient was personally seen and examined by me. I have reviewed the chart and agree that the record accurately reflects by personal performance of the history, physical exam, data review, and medical decision-making, in the course for the patient. I have also personally directed the plan of care. 61 year old female with PMH of metastatic breast cancer ,SP 4 weeks of IV antibiotic for gram positive bacteremia, CHF with both systolic and diastolic dysfunction (last Echo showed EF 40% and diastolic CHF) was admitted with Puritic generalized rash, likely allergic/atopic dermatitis less likely infectious. Blood cultures are negative for any growth.IV daptomycin was discontinued.Patient has Leukocytosis , this is due to Steroid.Patient is afebrile.Rash is improving.Doppler is negative for DVT.Patient has significant leg edema.We will start patient on lasix.Patient has refused blood work up today.She is feeling better.She is afrile.Cultures are negative.Leg swelling is improving.Patient was evaluated by Physical therapy prior to discharge. Patient will be discharged home and will follow up with her PCP and Oncologist. She has been advised to have repeat CBC and BMP with PCP in one week. Management plan was discussed in detail with patient. Education was provided
[2017-07-31] MEDS: Hydrocortisone 1% Cream (30 GM) TOP SCH (10:18)
[2017-07-31] MEDS: Enoxaparin 40 mg Syringe SC SCH (10:55)
[2017-07-31 15:50] VITALS: BP 133/82; PULSE 72; TEMP 97.9; O2SAT 100
--- NOTE | 2017-08-01 03:58 | PN ---
DATE: 07/31/2017 SUBJECTIVE: The patient was seen earlier this morning, in no acute distress, nontoxic. PHYSICAL EXAMINATION: VITAL SIGNS: Temperature is 98, blood pressure is 120/70, respiratory rate of 16. HEENT: Unremarkable. NECK: Supple. LUNGS: Have decreased breath sounds. HEART: Normal S1, S2. ABDOMEN: Soft, nontender. SKIN: Improved. LABORATORY DATA: cultures and blood cultures are negative. ASSESSMENT AND PLAN: This a 61-year-old female who was seen earlier this morning with a maculopapular rash and is improved, , history of sepsis, sensitive Staphylococcus aureus bacteremia, completed 4 weeks of nafcillin and now, the patient is doing much better and repeat cultures are all negative. Jamel Valencia MD
== END 2017-07-31 17:31 | disposition home or self-care (01) | DRG 563 ==
LOC: ED 11:42 → ERH 13:17 → 5RSO 15:56
PROVIDERS: ADMIT Hospitalist; ATTEND Internal Medicine
DX: R21 Rash and other nonspecific skin eruption (principal); R65.10 Systemic inflammatory response syndrome (SIRS) of non-infectious origin without acute organ dysfunction; C79.51 Secondary malignant neoplasm of bone; I11.0 Hypertensive heart disease with heart failure; I50.9 Heart failure, unspecified; C50.919 Malignant neoplasm of unspecified site of unspecified female breast; L29.9 Pruritus, unspecified; I25.10 Atherosclerotic heart disease of native coronary artery without angina pectoris; M81.0 Age-related osteoporosis without current pathological fracture; D72.1 Eosinophilia; E03.9 Hypothyroidism, unspecified; M79.89 Other specified soft tissue disorders; R53.1 Weakness; M19.90 Unspecified osteoarthritis, unspecified site

== ENCOUNTER 2017-08-14 15:33 | Inpatient (IN) | payer OTHER ==
[2017-08-14 15:40] VITALS: BMI 24.2
--- NOTE | 2017-08-14 16:12 | ED PDOC ---
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 Patient is lethargic, but easily arousable. She reports that earlier today, she was walking to the bathroom, and tripped on an uneven part of her ground at home, though she also reports that she was lightheaded at the time. She fell backwards , on her buttocks, and scraped her left wrist. She fell again walking to her door, on the same unlevel part of her floor, and again felt very lightheaded before the fall. She did not have any chest pain, palpitations, headache, focal numbness or weakness, facial droop, or slurred speech. She reports that she has been lightheaded for the past day, which is how she normally feels when her blood pressure is low. She currently reports feeling lightheaded and dizzy, but does not have any chest pain, shortness of breath, palpitations, or parasthesias. She reports that in the second fall, she twisted her ankle, and has had pain and difficulty bearing weight on her left foot. She also reports that she had three bowel movements today, including one diarrhea movement today , nonbloody nonmucioid. 08/14/17 16:33 (Emanuel Abreu) Past Medical History - Provider Review Nursing Documentation Reviewed: Yes - Past History Past History: No Previous - Infectious Disease Hx of Infectious Diseases: None - Tetanus Immunization Tetanus Immunization: Unknown - Past Medical History Past Medical History: Non-Contributing - Cardiac Hx Pacemaker: No - Pulmonary Hx Respiratory Disorders: No - Neurological Hx Neurological Disorder: No - HEENT Hx HEENT Disorder: No - Renal Hx Renal Disorder: No - Endocrine/Metabolic Hx Endocrine Disorders: No - Hematological/Oncological Hx Cancer: Yes - Integumentary Hx Dermatological Disorder: No - Musculoskeletal/Rheumatological Hx Falls: No - Gastrointestinal Hx Gastrointestinal Disorders: No - Genitourinary/Gynecological Hx Genitourinary Disorders: No - Psychiatric Hx Anxiety: Yes Hx Substance Use: No - Surgical History Hx Mastectomy: No Other/Comment: stage 4 breast, bone ca - Anesthesia Hx Anesthesia: Yes Hx Anesthesia Reactions: No - Suicidal Assessment Feels Threatened In Home Enviroment: No <Emanuel Abreu - Last Filed: 08/14/17 20:06> Family/Social History - Physician Review Nursing Documentation Reviewed: Yes Family/Social History: Unknown Family HX Smoking Status: Never Smoked Hx Alcohol Use: No Amount per day: 3 Hx Substance Use: No Hx Substance Use Treatment: No <Emanuel Abreu - Last Filed: 08/14/17 20:06> Allergies/Home Meds <Emanuel Abreu - Last Filed: 08/14/17 20:06> <Mohmaud Blanca DO - Last Filed: 08/14/17 22:22> Allergies/Adverse Reactions: Allergies No Known Allergies Allergy (Verified 07/28/17 11:57) Home Medications: Home Meds Medication Instructions Recorded Confirmed Ranitidine HCl [Acid Employment Trainer] 100 mg PO DAILY 07/28/17 08/14/17 Review of Systems - Review of Systems Constitutional: Fatigue Eyes: Normal ENT: Normal Respiratory: Normal Cardiovascular: Normal Gastrointestinal: Diarrhea Genitourinary Female: Normal Musculoskeletal: Normal Skin: Normal Neurological: Dizziness, Disequilibrium Endocrine: Normal Hemo/Lymphatic: Normal Psychiatric: Normal <Emanuel Abreu - Last Filed: 08/14/17 20:06> Physical Exam Vital Signs Reviewed: Yes Temperature: Afebrile Blood Pressure: Hypotensive (80/40 manual) Pulse: Regular Respiratory Rate: Normal Appearance: Positive for: Non-Toxic, Comfortable, Ill-Appearing Pain Distress: None Mental Status: Positive for: Alert and Oriented X 3, Lethargic Finger Stick Blood Glucose: 105 - Systems Exam Head: Present: Atraumatic, Normocephalic Pupils: Present: PERRL Extroacular Muscles: Present: EOMI Conjunctiva: Present: Normal Mouth: Present: Dry Neck: Present: Normal Range of Motion Respiratory/Chest: Present: Clear to Auscultation, Good Air Exchange. No: Respiratory Distress, Accessory Muscle Use Cardiovascular: Present: Regular Rate and Rhythm, Normal S1, S2 Abdomen: Present: Normal Bowel Sounds. No: Tenderness, Distention, Peritoneal Signs Upper Extremity: Present: Normal Inspection. No: Cyanosis, Edema Lower Extremity: Present: Normal Inspection. No: Edema, CALF TENDERNESS Neurological: Present: GCS=15, CN II-XII Intact, Speech Normal Skin: Present: Warm, Dry, Normal Color. No: Rashes Psychiatric: Present: Alert, Oriented x 3, Normal Insight, Normal Concentration <Emanuel Abreu - Last Filed: 08/14/17 20:06> Vital Signs Temp Pulse Resp BP Pulse Ox 08/14/17 20:58 73 18 122/74 97 08/14/17 19:15 68 17 126/67 99 08/14/17 18:38 67 16 115/59 L 99 08/14/17 16:54 61 17 110/53 L 100 08/14/17 16:39 58 L 17 86/46 L 98 08/14/17 15:40 97.7 F 65 18 66/40 L 99 Medical Decision Making <Emanuel Abreu - Last Filed: 08/14/17 20:06> <Mohamud Blanca DO - Last Filed: 08/14/17 22:22> ED Course and Treatment: 08/14/17 16:38 Impression: Left ankle swelling and pain; Hypotension Plan: -- Rechecked BP, manually 80/40; mentating normally, radial pulses palpable bilaterally -- 1L NS IVF bolus -- Labs: CBC, CMP, cardiac ISO, BNP, VBG with lactate, blood cultures, procal, UA, UCx -- EKG -- CXR -- Head CT -- L ankle XR -- Reassess and dispo Progress notes: 08/14/17 18:23 -- Labs remarkable for mild leukocytosis, anemia, elevated BNP; no leukocytosis , troponin low -- EKG shows sinus bradycardia -- CXR shows mild congestion, pending official read; no focal consolidation -- Head CT shows no acute findings; chronic appearing bilateral lacunar infarcts -- L ankle XR shows definite minimally displaced lateral malleolar fracture; possible trimalleolar fracture; pending official read -- Patient was not requesting pain medications on initial presentation, though now requesting something for pain; ordered percocet -- Called Dr. Pantoja for admission, requests admission to go to hospitalist service -- Called Dr. Silva for admission to hospitalist service, requests ortho consult be called -- Call placed to Dr. Freeman, orthopedic surgeon on site soil evaluator 08/14/17 19:22 -- Dr. Freeman called back, reviewed images, said to call podiatry service and residents for evaluation -- Admission staffed with Dr. Carmina Ratliff, hospitalist service 08/14/17 20:06 -- Called podiatry resident; consult placed to Dr. Costa Munson; Resident will evaluate patient at bedside (Emanuel Abreu) Patient Seen With Resident: In agreement with resident note which contains more details about the patient. Patient was seen and evaluated with resident. Came up with plan and treatment together. A 61 year old female with left ankle pain and swelling s/p fall. Patient with dry mucous membrane, hypotensive, and lethargic. Ordered EKG, Chest X-ray, left ankle Xray, CT head, labs and Urinalysis. (Mohamud Blanca DO) - Lab Interpretations Lab Results: 08/14/17 15:55 08/14/17 15:55 Lab Results 08/14/17 15:55: Procalcitonin 0.05 L 08/14/17 15:55: pO2 39, VBG pH 7.36, VBG pCO2 53.0, VBG HCO3 29.9 H, VBG Total CO2 31.5 H, VBG O2 Sat (Calc) 79.0 H, VBG Base Excess 3.2 H, VBG Potassium 4.0, Sodium 136.0, Chloride 103.0, Glucose 113 H, Lactate 1.7, FiO2 21.0, Venous Blood Potassium 4.0 08/14/17 15:55: Sodium 137, Chloride 99, Potassium 3.8, Carbon Dioxide 25, Anion Gap 17, BUN 19, Creatinine 1.5 H, Est GFR ( Amer) 43, Est GFR (Non- Af Amer) 35, Random Glucose 92, Calcium 9.7, Magnesium 2.1, Total Bilirubin 0.9 , AST 44 H D, ALT 30, Alkaline Phosphatase 87, Lactate Dehydrogenase 654, Total Creatine Kinase 23 L, Troponin I < 0.01, NT-Pro-B Natriuret Pep 1760 H, Total Protein 7.9, Albumin 4.1, Globulin 3.7, Albumin/Globulin Ratio 1.1 08/14/17 15:55: WBC 11.9 H D, RBC 2.99 L, Hgb 8.2 L, Hct 26.1 L, MCV 87.3, MCH 27.4, MCHC 31.4, RDW 17.9 H, Plt Count 276, MPV 8.8, Gran % 63.0, Lymph % (Auto ) 18.1 L, [place] % (Auto) 14.3 H, Eos % (Auto) 3.9, Baso % (Auto) 0.7, Gran # 7.50 H, Lymph # (Auto) 2.2, [place] # (Auto) 1.7 H, Eos # (Auto) 0.5, Baso # (Auto ) 0.08 - RAD Interpretation Radiology Orders: 08/14/17 16:01 CHEST TWO VIEWS (PA/LAT) [RAD] Stat 08/14/17 16:02 HEAD W/O CONTRAST [CT] Stat ANKLE LEFT 3 VIEWS ROUTINE [RAD] Stat - Medication Orders Current Medication Orders: Aspirin (Aspirin Chewable) 81 mg PO DAILY [facility] Clopidogrel Bisulfate (Plavix) 75 mg PO DAILY [facility] Docusate Sodium (Colace) 100 mg PO TID [facility] Gabapentin (Neurontin) 300 mg PO TID [facility] PRN Reason: Protocol Hydralazine HCl (Apresoline) 50 mg PO TID [facility] Hydroxyzine Pamoate (Vistaril) 25 mg PO Q8H PRN; Protocol PRN Reason: Itching / Pruritus Lisinopril (Zestril) 10 mg PO DAILY [facility] Metoprolol Tartrate (Lopressor) 50 mg PO BID [facility] Oxycodone HCl (Oxycodone Immediate Release Tab) 30 mg PO Q6H PRN PRN Reason: Pain, severe (8-10) Pantoprazole Sodium (Protonix Ec Tab) 40 mg PO ACB [facility] Potassium Chloride (K-Dur 20 Meq Er Tab) 20 meq PO DAILY [facility] Discontinued Medications Sodium Chloride (Sodium Chloride 0.9%) 1,000 mls @ 999 mls/hr IV .Q1H1M STA Stop: 08/14/17 18:17 Last Admin: 08/14/17 17:20 Dose: 999 mls/hr eMAR Start Stop Document 08/14/17 17:20 SF (Rec: 08/14/17 18:06 SF [email or web address]) Intravenous Solution Start Date 08/14/17 Start Time 17:20 End Date 08/14/17 End time 18:21 Total Infusion Time 61 Morphine Sulfate (Morphine) 4 mg IVP STAT STA Stop: 08/14/17 19:21 Last Admin: 08/14/17 19:29 Dose: 4 mg MAR Pain Assessment Document 08/14/17 19:29 SF (Rec: 08/14/17 19:29 SF [email or web address]) Pain Reassessment Is this a pain reassessment? Yes Sleep Is patient sleeping during reassessment? No Presence of Pain Presence of Pain Yes IVP Administration Document 08/14/17 19:29 SF (Rec: 08/14/17 19:29 SF [facility]) Charges for Administration # of IVP Administrations 1 Oxycodone/Acetaminophen (Percocet 5/325 Mg Tab) 1 tab PO STAT STA Stop: 08/14/17 18:01 Last Admin: 08/14/17 18:13 Dose: 1 tab MAR Pain Assessment Document 08/14/17 18:13 SF (Rec: 08/14/17 18:13 SF [facility]) Pain Reassessment Is this a pain reassessment? Yes Sleep Is patient sleeping during reassessment? No Presence of Pain Presence of Pain Yes <Emanuel Abreu - Last Filed: 08/14/17 20:06> - PA / [employer] C[employer] INSULATOR / Resident Statement / has reviewed & agrees with the documentation as recorded. MD/ has examined the patient and agrees with the treatment plan. - Scribe Statement The provider has reviewed the documentation as recorded by the Scribe <Mohamud Blanca DO - Last Filed: 08/14/17 22:22> - Scribe Statement Yasmine Hawkins Provider Scribe Attestation: All medical record entries made by the Scribe were at my direction and personally dictated by me. I have reviewed the chart and agree that the record accurately reflects my personal performance of the history, physical exam, medical decision making, and the department course for this patient. I have also personally directed, reviewed, and agree with the discharge instructions and disposition. (Mohamud Blanca DO) Disposition/Present on Arrival - Present on Arrival Any Indicators Present on Arrival: No History of DVT/PE: No History of Uncontrolled Diabetes: No Urinary Catheter: No History of Decub. Ulcer: No History Surgical Site Infection Following: None - Disposition Have Diagnosis and Disposition been Completed?: Yes Disposition Time: 20:10 Patient Plan: Telemetry <Emanuel Abreu - Last Filed: 08/14/17 20:06> - Disposition Disposition Time: 18:00 <Mohamud Blanca DO - Last Filed: 08/14/17 22:22> - Disposition Diagnosis: Near syncope, Leukocytosis, Dizziness, Hypotension, Anemia, Acute kidney injury , Ankle fracture Disposition: HOSPITALIZED Patient Problems: Current Active Problems Problem Status Onset Acute kidney injury Acute Anemia Acute Ankle fracture Acute Dizziness Acute Hypotension Acute Leukocytosis Acute Near syncope Acute Condition: GUARDED
[2017-08-14 16:46] LABS: BASO # 0.08 K/mm3 (0.0-2.0); BASO % 0.7 % (0.0-3.0); EOS # 0.5 (0.0-0.7); EOS % 3.9 % (1.5-5.0); GRAN # 7.5 (1.4-6.5); HEMOGLOBIN 8.2 g/dL (12.0-16.0); LYMPH # 2.2 (1.2-3.4); LYMPH % 18.1 % (22.0-35.0); MEAN CELL VOLUME 87.3 fl (80.0-105.0); MEAN CORPUSCULAR HEMOGLOBIN 27.4 pg (25.0-35.0); MEAN CORPUSCULAR HGB CONC 31.4 g/dl (31.0-37.0); MEAN PLATELET VOLUME 8.8 fl (7.0-11.0); MONO # 1.7 (0.1-0.6); MONO % 14.3 % (1.0-6.0); RBC 2.99 10^6/uL (3.5-6.1); RED CELL DISTRIBUTION WIDTH 17.9 % (11.5-14.5); WHITE BLOOD COUNT 11.9 10^3/ul (4.5-11.0)
[2017-08-14 16:51] LABS: VENOUS BLOOD GAS BASE EXCESS 3.2 mmol/L (0.0-2.0); VENOUS BLOOD GAS PO2 39 mm/Hg (30-55); VENOUS BLOOD PH 7.36 (7.32-7.43)
[2017-08-14 17:09] LABS: ALB/GLOB RATIO 1.1 (1.1-1.8); ALBUMIN 4.1 g/dL (3.0-4.8); ALT/SGPT 30 U/L (7-56); AST/SGOT 44 U/L (14-36); BLOOD UREA NITROGEN 19 mg/dL (7-21); CALCIUM 9.7 mg/dL (8.4-10.5); GFR AFRICAN-AMERICAN 43; GFR NON-AFRICAN AMERICAN 35
[2017-08-14 17:17] LABS: B-TYPE NATRIURETIC PEPTIDE 1760 pg/mL (0-450); TROPONIN I < 0.01 ng/mL
[2017-08-14] MEDS ORDERED: Sodium Chloride 0.9% 1,000 ML IV STA (17:17)
--- NOTE | 2017-08-14 17:38 | CT ---
PROCEDURE: CT scan brain dated 08/14/2017 HISTORY: Rule out ICH COMPARISON: Comparison made with prior CT scan brain 07/28/2017. TECHNIQUE: Axial computed tomography images were obtained through the head/brain without intravenous contrast. Radiation dose: Total exam DLP = 846.46 mGy-cm. This CT exam was performed using one or more of the following dose reduction techniques: Automated exposure control, adjustment of the mA and/or kV according to patient size, and/or use of iterative reconstruction technique. FINDINGS: HEMORRHAGE: No acute parenchymal, subarachnoid or extra-axial hemorrhage. BRAIN: Mild chronic periventricular white matter ischemic changes Mild generalized volume loss. Minor vascular calcifications both carotid siphons. VENTRICLES: Unremarkable. No hydrocephalus. CALVARIUM: Calvarium appears intact. There appears to be a chronic localized fracture right lamina papyracea unchanged from prior exam. PARANASAL SINUSES: Minimal mucosal thickening seen within a few ethmoid air cells extending superiorly into the frontal sinus. There is also mild mucosal thickening left maxillary antrum. . MASTOID AIR CELLS: Ganglia lacunar type infarct. There may also be a few tiny lymph nodes in the left basal ganglia. Unremarkable as visualized. No inflammatory changes. OTHER FINDINGS: None. IMPRESSION: Minor chronic periventricular white matter ischemic changes with chronic appearing bilateral basal nuclei lacunar type infarcts. Mild generalized volume loss.
[2017-08-14] MEDS ORDERED: Oxycodone/Acetaminophen 5/325 mg Tab PO STA (18:00)
--- NOTE | 2017-08-14 18:34 | RAD ---
HISTORY: r/o infiltrate COMPARISON: 07/28/2017 TECHNIQUE: Chest PA and lateral FINDINGS: LUNGS: No active pulmonary disease. PLEURA: No significant pleural effusion identified. No pneumothorax apparent. CARDIOVASCULAR: Normal. OSSEOUS STRUCTURES: No significant abnormalities. VISUALIZED UPPER ABDOMEN: Normal. OTHER FINDINGS: None. IMPRESSION: No active disease.
--- NOTE | 2017-08-14 18:39 | RAD ---
PROCEDURE: Left Ankle Radiographs. HISTORY: left ankle pain swelling COMPARISON: None FINDINGS: BONES: Oblique distal fibular diaphysis fracture. Comminuted distal tibial fracture involving the medial malleolus as well as anterior malleolus. JOINTS: Mild widening of the ankle mortise. SOFT TISSUES: Circumferential soft tissue swelling. OTHER FINDINGS: None. IMPRESSION: Medial malleolar fracture. Distal fibular fracture. Anterior malleolar fracture.
--- NOTE | 2017-08-14 19:09 | CARD ---
APPROVED REPORT EKG Measurement Heart [id number] DC [id number] [id number] <Conclusion> Sinus bradycardia Cannot rule out Anterior infarct, age undetermined Abnormal ECG
[2017-08-14] MEDS ORDERED: Morphine 4 mg/ml ISec IVP STA (19:20)
--- NOTE | 2017-08-14 19:45 | CP.PCM.HP ---
<Jerry [place] - Last Filed: 08/14/17 20:19> History of Present Illness - History of Present Illness History of Present Illness: 61 F with a PMHx of Stage IV invasive ductal carcinoma of the breast with bone metastasis to bone currently receiving chemotherapy, HTN, CAD, and OA presenting to the [facility] complaining of left ankle pain after a mechanical fall. Patient reports having two falls in time by a few hours secondary to being lightheaded. Patient reports that on her second fall she twisted her left ankle and was unable to stand on her left foot. Patient reports pain associated with left ankle and swelling. She reports pain is manageable at this point. Patient was evaluated in ED and found to have left malleolar fracture. Orthopedic exhibition organiser was notified of case. Podiatry exhibition organiser was notified. Patient to be admitted for possible surgery in AM. Patient denies chest pain, shortness of breath, headache, abdominal discomfort, numbness, nausea, vomiting, fever, chills, numbness or tingling. Patient reports continued feeling in her left lower extremity along with general weakness that has been an ongoing issue. 12 point ROS otherwise not mentioned in HPI is benign. PMHx: HTN, Stage 4 metastatic breast cancer (invasive ductal carcinoma) to bone , osteoporosis PSHx: right hip surgery ("years ago") last chemo: last gets chemo at [facility] and does not receive radiation SHx: denies smoking, EtOH, or illicits, [place] Meds: asa, plavix, lisinopril, metoprolol, neurontin Allergies: NKDA PMD: Dr. Drake Oncologist: Dr. Melvin Jackson [place] [facility]: [facility] Present on Admission - Present on Admission Any Indicators Present on Admission: No Review of Systems - Review of Systems All systems: reviewed and no additional remarkable complaints except (otherwise mentioned in HPI) Past Patient History - Infectious Disease Hx of Infectious Diseases: None - Tetanus Immunizations Tetanus Immunization: Unknown - Past Social History Smoking Status: Never Smoked Alcohol: None Drugs: Denies - CARDIAC Hx Pacemaker: No - PULMONARY Hx Respiratory Disorders: No - NEUROLOGICAL Hx Neurological Disorder: No - HEENT Hx HEENT Problems: No - RENAL Hx Chronic Kidney Disease: No - ENDOCRINE/METABOLIC Hx Endocrine Disorders: No - HEMATOLOGICAL/ONCOLOGICAL Hx Cancer: Yes - INTEGUMENTARY Hx Dermatological Problems: No - MUSCULOSKELETAL/RHEUMATOLOGICAL Hx Falls: No - GASTROINTESTINAL Hx Gastrointestinal Disorders: No - GENITOURINARY/GYNECOLOGICAL Hx Genitourinary Disorders: No - PSYCHIATRIC Hx Anxiety: Yes Hx Substance Use: No - SURGICAL HISTORY Hx Mastectomy: No Other/Comment: stage 4 breast, bone ca - ANESTHESIA Hx Anesthesia: Yes Hx Anesthesia Reactions: No Meds Allergies/Adverse Reactions: Allergies Allergy/AdvReac Type Severity Reaction Status Date / Time No Known Allergies Allergy Verified 07/28/17 11:57 Physical Exam - Constitutional Appears: No Acute Distress - Head Exam Head Exam: ATRAUMATIC, NORMAL INSPECTION, NORMOCEPHALIC - Eye Exam Eye Exam: EOMI, PERRL - ENT Exam Additional comments: poor dentition - Respiratory Exam Respiratory Exam: Clear to Auscultation Bilateral, NORMAL BREATHING PATTERN. absent: Rhonchi, Wheezes - Cardiovascular Exam Cardiovascular Exam: REGULAR RHYTHM, +S1, +S2 - GI/Abdominal Exam GI & Abdominal Exam: Normal Bowel Sounds, Soft - Extremities Exam Additional comments: left ankle with notable swelling proximal and at level of mallelous, pedal pulses appreciated, warm to touch, limited ROM, limited strength, intact sensation - Neurological Exam Neurological exam: Alert, Oriented x3 - Psychiatric Exam Psychiatric exam: Normal Affect, Normal Mood - Skin Skin Exam: Dry, Warm Results - Vital Signs Recent Vital Signs: Last Vital Signs Temp 97.7 F 08/14/17 15:40 Pulse 68 08/14/17 19:15 Resp 17 08/14/17 19:15 BP 126/67 08/14/17 19:15 Pulse Ox 99 08/14/17 19:15 - Labs Result Diagrams: 08/14/17 15:55 08/14/17 15:55 Labs: Laboratory Results - last 24 hr 08/14/17 08/14/17 08/14/17 15:55 15:55 15:55 WBC 11.9 H D RBC 2.99 L Hgb 8.2 L Hct 26.1 L MCV 87.3 MCH 27.4 MCHC 31.4 RDW 17.9 H Plt Count 276 MPV 8.8 Gran % 63.0 Lymph % (Auto) 18.1 L [place] % (Auto) 14.3 H Eos % (Auto) 3.9 Baso % (Auto) 0.7 Gran # 7.50 H Lymph # (Auto) 2.2 [place] # (Auto) 1.7 H Eos # (Auto) 0.5 Baso # (Auto) 0.08 pO2 39 VBG pH 7.36 VBG pCO2 53.0 VBG HCO3 29.9 H VBG Total CO2 31.5 H VBG O2 Sat (Calc) 79.0 H VBG Base Excess 3.2 H VBG Potassium 4.0 Sodium 137 136.0 Chloride 99 103.0 Glucose 113 H Lactate 1.7 FiO2 21.0 Potassium 3.8 Carbon Dioxide 25 Anion Gap 17 BUN 19 Creatinine 1.5 H Est GFR ( Amer) 43 Est GFR (Non-Af Amer) 35 Random Glucose 92 Calcium 9.7 Magnesium 2.1 Total Bilirubin 0.9 AST 44 H D ALT 30 Alkaline Phosphatase 87 Lactate Dehydrogenase 654 Total Creatine Kinase 23 L Troponin I < 0.01 NT-Pro-B Natriuret Pep 1760 H Total Protein 7.9 Albumin 4.1 Globulin 3.7 Albumin/Globulin Ratio 1.1 Venous Blood Potassium 4.0 Assessment & Plan - Assessment and Plan (Free Text) Assessment: 61 F with a PMHx of Stage IV invasive ductal carcinoma of the breast with bone metastasis to bone currently receiving chemotherapy, HTN, CAD, and OA with left minimally displaced lateral malleolar fracture Plan: Displaced lateral malleolar fracture Details: - Status post mechanical fall - Left ankle xray showing minimally displaced lateral malleolar fracture; possible trimalleolar fracture - Left lower extremity with good pulse, color, warm, dry to touch - Neurovascularly intact - Orthopedic surgery consulted - Podiatry consulted Plan: - Follow up Podiatry recs - Pain management YUMIKO - Elevated Cr from previous - IVF, hold nephrotoxic medications - Monitor HTN - BP stable, holding parameters for home anti-htn - continue to monitor Stage IV breast cancer with bone mets - Oncologist Dr. Vicente in [place] for infusions - Oxycodone 30mg q6 prn CAD - asa, plavix GI/DVT ppx - protonix - SCD Case and Plan discussed with attending - Date & Time Date: 08/14/17 Time: 20:11 <Carmina Ratliff - Last Filed: 08/15/17 03:57> Results - Vital Signs Recent Vital Signs: Last Vital Signs Temp 98.1 F 08/15/17 00:01 Pulse 67 08/15/17 00:01 Resp 20 08/15/17 00:01 BP 138/74 08/15/17 00:01 Pulse Ox 98 08/15/17 00:01 - Labs Result Diagrams: 08/14/17 15:55 08/14/17 15:55
[2017-08-14] MEDS: oxyCODONE 30 mg Immediate Release Tab PO PRN (22:50)
--- NOTE | 2017-08-14 23:33 | CP.PCM.CON ---
History of Present Illness - History of Present Illness History of Present Illness: Podiatry Consult Note- Dr. 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 Patient reported that at 1:30pm today she sustained two separate falls after tripping over an uneven floor area in her house. She reports using rolling walker to help with ambulation. She reported the first fall as she was going to the bathroom. Denies injury to the lower extremity during that time. Was able to go to the bathroom and rest back in bed. She reports the second fall happened when she went to answer the door. Reports tripping over the same uneven floor area and twisting her ankle. She reports recently feeling lightheadedness and loss of appetite. She rates her pain 9/10. Describes the pain as a pressure pain at the left ankle. Denies numbness and tingling. Denies nausea, fever, shortness of breath, chest pain or chills. 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, osteoporosis, HTN, anxiety, CAD PSH: right hip fracture surgery ALL: [facility]DA MEDS: see MAR list FH: father- cancer, mother- HTN, heart disease SH: denies smoking, reports socially drinks, denies illicit drug use Past Patient History - Infectious Disease Hx of Infectious Diseases: None - Tetanus Immunizations Tetanus Immunization: Unknown - Past Social History Smoking Status: Never Smoked Alcohol: None Drugs: Denies - CARDIAC Hx Pacemaker: No - PULMONARY Hx Respiratory Disorders: No - NEUROLOGICAL Hx Neurological Disorder: No - HEENT Hx HEENT Problems: No - RENAL Hx Chronic Kidney Disease: No - ENDOCRINE/METABOLIC Hx Endocrine Disorders: No - HEMATOLOGICAL/ONCOLOGICAL Hx Cancer: Yes - INTEGUMENTARY Hx Dermatological Problems: No - MUSCULOSKELETAL/RHEUMATOLOGICAL Hx Falls: No - GASTROINTESTINAL Hx Gastrointestinal Disorders: No - GENITOURINARY/GYNECOLOGICAL Hx Genitourinary Disorders: No - PSYCHIATRIC Hx Anxiety: Yes Hx Substance Use: No - SURGICAL HISTORY Hx Mastectomy: No Other/Comment: stage 4 breast, bone ca - ANESTHESIA Hx Anesthesia: Yes Hx Anesthesia Reactions: No Meds Allergies/Adverse Reactions: Allergies Allergy/AdvReac Type Severity Reaction Status Date / Time No Known Allergies Allergy Verified 07/28/17 11:57 - Medications Medications: Current Medications Aspirin (Aspirin Chewable) 81 mg PO DAILY [facility] Clopidogrel Bisulfate (Plavix) 75 mg PO DAILY [facility] Docusate Sodium (Colace) 100 mg PO TID [facility] Gabapentin (Neurontin) 300 mg PO TID [facility] PRN Reason: Protocol Hydralazine HCl (Apresoline) 50 mg PO TID [facility] Hydroxyzine Pamoate (Vistaril) 25 mg PO Q8H PRN; Protocol PRN Reason: Itching / Pruritus Lisinopril (Zestril) 10 mg PO DAILY [facility] Metoprolol Tartrate (Lopressor) 50 mg PO BID [facility] Oxycodone HCl (Oxycodone Immediate Release Tab) 30 mg PO Q6H PRN PRN Reason: Pain, severe (8-10) Last Admin: 08/14/17 22:50 Dose: 30 mg Pantoprazole Sodium (Protonix Ec Tab) 40 mg PO ACB [facility] Potassium Chloride (K-Dur 20 Meq Er Tab) 20 meq PO DAILY [facility] Physical Exam - Constitutional Appears: Well, Non-toxic, No Acute Distress - Extremities Exam Extremities exam: Negative for: calf tenderness Additional comments: VASC: DP and PT 2/4 bilaterally, CFT < 3 seconds x 10 digits, temperature gradient WNL, severe-moderate nonpitting edema noted to the left ankle and forefoot ORTHO: pain with palpation to the medial malleolus, lateral malleolus, and entire ankle, able to perform ankle dorsiflexion and plantarflexion, able to wiggle toes NEURO: gross and protective sensation intact DERM: no ecchymosis noted, no blisters, no open lesion, no clinical signs of infection - Neurological Exam Neurological exam: Alert, Oriented x3 Results - Vital Signs Recent Vital Signs: Last Vital Signs Temp 97.7 F 08/14/17 15:40 Pulse 73 08/14/17 20:58 Resp 18 08/14/17 20:58 BP 122/74 08/14/17 20:58 Pulse Ox 97 08/14/17 20:58 - Labs Result Diagrams: 08/14/17 15:55 08/14/17 15:55 Assessment & Plan - Assessment and Plan (Free Text) Assessment: 61 y.o female with PMHx of 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 Munson Labs, chart, vitals reviewed (afebrile, leukocytosis) X-ray reviewed- distal fibular fracture at level of ankle joint- oblique and displaced, lateral malleolus fracture. X-rays findings consistent with Lauge-Lopez Classification SERIV Modified Akbar Compression with posterior splint applied Patient to keep dressing c/d/i. Do not get wet. Do not remove Instructed on RICE protocol. Explained to patient, she will need surgery in the future given instability and displacement of the fracture Patient understands and in agreement Patient to be NWB to the left lower extremity with ambulatory device. Will continue to follow patient while in house Thank you for allowing us to take part in patient's care
[2017-08-15] MEDS: oxyCODONE 30 mg Immediate Release Tab PO PRN ×3 (04:37→22:23)
[2017-08-15 06:40] LABS: BASO # 0.06 K/mm3 (0.0-2.0); BASO % 0.5 % (0.0-3.0); EOS # 0.8 (0.0-0.7); EOS % 6.8 % (1.5-5.0); GRAN # 6.44 (1.4-6.5); GRAN % 56.1 % (50.0-68.0); HEMOGLOBIN 7.5 g/dL (12.0-16.0); LYMPH # 2.8 (1.2-3.4); LYMPH % 24.1 % (22.0-35.0); MEAN CORPUSCULAR HEMOGLOBIN 27.8 pg (25.0-35.0); MEAN CORPUSCULAR HGB CONC 31.9 g/dl (31.0-37.0); MEAN PLATELET VOLUME 8.4 fl (7.0-11.0); MONO # 1.4 (0.1-0.6); MONO % 12.5 % (1.0-6.0); RBC 2.7 10^6/uL (3.5-6.1); RED CELL DISTRIBUTION WIDTH 17.9 % (11.5-14.5); WHITE BLOOD COUNT 11.5 10^3/ul (4.5-11.0)
[2017-08-15 06:55] LABS: INR 1.14 (0.93-1.08); PROTHROMBIN TIME 13.2 SECONDS (9.4-12.5)
[2017-08-15 07:04] LABS: URINE BILIRUBIN NEGATIVE (NEGATIVE); URINE BLOOD NEGATIVE (NEGATIVE); URINE GLUCOSE (UA) NEGATIVE (NEGATIVE); URINE LEUKOCYTE ESTERASE NEGATIVE Leu/uL (NEGATIVE); URINE PROTEIN 30 mg/dL (<30 mg/dL); URINE UROBILINOGEN 0.2 E.U./dL (<1 E.U./dL)
[2017-08-15 07:06] LABS: URINE APPEARANCE CLEAR (CLEAR); URINE COLOR YELLOW (YELLOW)
[2017-08-15 07:33] LABS: URINE BACTERIA SMALL (NEG); URINE RBC 0 - 2 /hpf (0-2); URINE WBC 0 - 2 /hpf (0-6)
[2017-08-15 07:35] LABS: ALBUMIN 3.7 g/dL (3.0-4.8); CALCIUM 9.2 mg/dL (8.4-10.5)
[2017-08-15] MEDS ORDERED: Sodium Chloride 0.9% 1,000 ML IV SCH (08:30)
--- NOTE | 2017-08-15 09:14 | CP.PCM.PN ---
Subjective - Date & Time of Evaluation Date of Evaluation: 08/15/17 Time of Evaluation: 09:10 - Subjective Subjective: 61 y/o female seen at bedside this morning for left ankle fracture. Pt resting in bed comfortably with posterior splint clean dry and intact to left lower extremity. Pt states she did not sleep very well as she was having pain in the ankle. She is agreeable to proceed with operative treatment as she wishes to return to her previous state of regular ambulation. She states she lives alone and understands that she may have to go to subacute rehab for therapy if necessary post-surgery. Denies F/C/N/V/CP/SOB Objective - Vital Signs/Intake and Output Vital Signs (last 24 hours): Temp Pulse Resp BP Pulse Ox 99.8 F H 78 20 115/60 97 08/15/17 06:00 08/15/17 06:00 08/15/17 06:00 08/15/17 06:00 08/15/17 06:00 Intake and Output: 08/15/17 08/15/17 06:59 18:59 Intake Total 120 Balance 120 - Medications Medications: Current Medications Aspirin (Aspirin Chewable) 81 mg PO DAILY [facility] Clopidogrel Bisulfate (Plavix) 75 mg PO DAILY [facility] Docusate Sodium (Colace) 100 mg PO TID [facility] Gabapentin (Neurontin) 300 mg PO TID [facility] PRN Reason: Protocol Heparin Sodium (Porcine) (Heparin) 5,000 units SC Q8 [facility] PRN Reason: Protocol Hydralazine HCl (Apresoline) 50 mg PO TID [facility] Hydroxyzine Pamoate (Vistaril) 25 mg PO Q8H PRN; Protocol PRN Reason: Itching / Pruritus Sodium Chloride (Sodium Chloride 0.9%) 1,000 mls @ 100 mls/hr IV .Q10H [facility] Lisinopril (Zestril) 10 mg PO DAILY [facility] Metoprolol Tartrate (Lopressor) 50 mg PO BID [facility] Morphine Sulfate (Morphine) 2 mg IVP Q4H PRN PRN Reason: Pain, severe (8-10) Oxycodone HCl (Oxycodone Immediate Release Tab) 30 mg PO Q6H PRN PRN Reason: Pain, severe (8-10) Last Admin: 08/15/17 04:37 Dose: 30 mg Pantoprazole Sodium (Protonix Ec Tab) 40 mg PO ACB [facility] Potassium Chloride (K-Dur 20 Meq Er Tab) 20 meq PO DAILY [facility] - Labs Labs: 08/15/17 05:30 08/15/17 05:30 PT 13.2 SECONDS (9.4-12.5) H 08/15/17 05:30 INR 1.14 (0.93-1.08) H 08/15/17 05:30 - Constitutional Appears: Well, Non-toxic, No Acute Distress - Extremities Exam Additional comments: LLE focused exam: Posterior splint clean dry and intact CFT < 3 sec to all digits Pt can wiggle toes freely without difficulty - Neurological Exam Neurological Exam: Alert, Awake, Oriented x3 - Psychiatric Exam Psychiatric exam: Normal Affect, Normal Mood Assessment and Plan - Assessment and Plan (Free Text) Assessment: 61 y/o female with PMHx of 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 Munson Labs, chart, vitals reviewed (afebrile, leukocytosis) X-ray reviewed- oblique displaced distal fibular fracture at level of ankle joint Patient to keep posterior splint C/D/I and remain NWB at all times to LLE Discussed the need for surgical intervention once medically stabilized Medical clearance requested at this time Will continue to follow patient while in house
[2017-08-15] MEDS: Morphine 2 mg/2 mL syringe IVP PRN ×3 (09:24→20:29)
--- NOTE | 2017-08-15 11:52 | CP.PCM.PN ---
<Jerry Beach - Last Filed: 08/15/17 11:49> Subjective - Date & Time of Evaluation Date of Evaluation: 08/15/17 Time of Evaluation: 11:49 - Subjective Subjective: Patient seen and evaluated this AM. No acute events reported overnight. Patient complains of left lower extremity pain assocaited with ankle fracture. Denies shortness of breath, chest pain, nausea, vomiting, fever, diarrhea. Objective - Vital Signs/Intake and Output Vital Signs (last 24 hours): Temp Pulse Resp BP Pulse Ox 99.8 F H 78 20 115/60 97 08/15/17 06:00 08/15/17 06:00 08/15/17 06:00 08/15/17 06:00 08/15/17 06:00 Intake and Output: 08/15/17 08/15/17 06:59 18:59 Intake Total 120 Balance 120 - Medications Medications: Current Medications Aspirin (Aspirin Chewable) 81 mg PO DAILY [facility] Clopidogrel Bisulfate (Plavix) 75 mg PO DAILY [facility] Docusate Sodium (Colace) 100 mg PO TID [facility] Last Admin: 08/15/17 09:16 Dose: Not Given Gabapentin (Neurontin) 300 mg PO TID [facility] PRN Reason: Protocol Last Admin: 08/15/17 10:00 Dose: Not Given Heparin Sodium (Porcine) (Heparin) 5,000 units SC Q8 [facility] PRN Reason: Protocol Hydralazine HCl (Apresoline) 50 mg PO TID [facility] Last Admin: 08/15/17 10:00 Dose: Not Given Hydroxyzine Pamoate (Vistaril) 25 mg PO Q8H PRN; Protocol PRN Reason: Itching / Pruritus Lisinopril (Zestril) 10 mg PO DAILY [facility] Metoprolol Tartrate (Lopressor) 50 mg PO BID [facility] Morphine Sulfate (Morphine) 2 mg IVP Q4H PRN PRN Reason: Pain, severe (8-10) Last Admin: 08/15/17 09:24 Dose: 2 mg Oxycodone HCl (Oxycodone Immediate Release Tab) 30 mg PO Q6H PRN PRN Reason: Pain, severe (8-10) Last Admin: 08/15/17 04:37 Dose: 30 mg Pantoprazole Sodium (Protonix Ec Tab) 40 mg PO ACB [facility] Potassium Chloride (K-Dur 20 Meq Er Tab) 20 meq PO DAILY [facility] - Labs Labs: 08/15/17 05:30 08/15/17 05:30 PT 13.2 SECONDS (9.4-12.5) H 08/15/17 05:30 INR 1.14 (0.93-1.08) H 08/15/17 05:30 - Constitutional Appears: No Acute Distress - Head Exam Head Exam: ATRAUMATIC, NORMAL INSPECTION, NORMOCEPHALIC - Eye Exam Eye Exam: EOMI, PERRL - Respiratory Exam Respiratory Exam: Clear to Ausculation Bilateral, NORMAL BREATHING PATTERN - Cardiovascular Exam Cardiovascular Exam: REGULAR RHYTHM, +S1, +S2 - GI/Abdominal Exam GI & Abdominal Exam: Soft, Normal Bowel Sounds. absent: Tenderness - Extremities Exam Extremities Exam: Normal Capillary Refill Additional comments: left lower extremity with splinting and wrapping of left ankle, - Neurological Exam Neurological Exam: Alert, Awake - Psychiatric Exam Psychiatric exam: Normal Affect, Normal Mood - Skin Skin Exam: Dry, Warm Assessment and Plan - Assessment and Plan (Free Text) Assessment: 61 F with a PMHx of Stage IV invasive ductal carcinoma of the breast with bone metastasis to bone currently receiving chemotherapy, HTN, CAD, and OA with left minimally displaced lateral malleolar fracture Plan: Displaced lateral malleolar fracture Details: - Status post mechanical fall - Left ankle xray showing minimally displaced lateral malleolar fracture; possible trimalleolar fracture - Left lower extremity with good pulse, color, warm, dry to touch - Neurovascularly intact - Orthopedic surgery consulted - Podiatry consulted - cardiac clearance history of CHF last known EF 40% Plan: - Follow up Podiatry recs - Pain management - Cardiac consulted for cardiac clearance YUMIKO - Elevated Cr from previous - IVF, hold nephrotoxic medications - Monitor HTN - BP stable, holding parameters for home anti-htn - continue to monitor Stage IV breast cancer with bone mets - Oncologist Dr. Vicente in [place] for infusions - Oxycodone 30mg q6 prn CAD - asa, plavix GI/DVT ppx - protonix - SCD Case and Plan discussed with attending <Ignacio Silva - Last Filed: 08/16/17 07:55> Objective - Vital Signs/Intake and Output Vital Signs (last 24 hours): Temp Pulse Resp BP Pulse Ox 99.0 F 71 20 118/54 L 99 05/04/18 06:00 08/16/17 06:00 08/16/17 06:00 08/16/17 06:00 08/16/17 06:00 Intake and Output: 08/16/17 08/16/17 06:59 18:59 Intake Total 240 Output Total 1200 Balance -960 - Medications Medications: Current Medications Aspirin (Aspirin Chewable) 81 mg PO DAILY [facility] Last Admin: 08/15/17 13:34 Dose: 81 mg Clopidogrel Bisulfate (Plavix) 75 mg PO DAILY [facility] Last Admin: 08/15/17 13:34 Dose: 75 mg Docusate Sodium (Colace) 100 mg PO TID [facility] Last Admin: 08/15/17 18:07 Dose: 100 mg Gabapentin (Neurontin) 300 mg PO TID [facility] PRN Reason: Protocol Last Admin: 08/15/17 18:07 Dose: 300 mg Heparin Sodium (Porcine) (Heparin) 5,000 units SC Q8 [facility] PRN Reason: Protocol Last Admin: 08/16/17 06:02 Dose: Not Given Hydralazine HCl (Apresoline) 50 mg PO TID [facility] Last Admin: 08/15/17 18:07 Dose: 50 mg Hydroxyzine Pamoate (Vistaril) 25 mg PO Q8H PRN; Protocol PRN Reason: Itching / Pruritus Last Admin: 08/15/17 18:10 Dose: 25 mg Lisinopril (Zestril) 10 mg PO DAILY [facility] Last Admin: 08/15/17 13:34 Dose: 10 mg Metoprolol Tartrate (Lopressor) 50 mg PO BID [facility] Last Admin: 08/15/17 18:07 Dose: 50 mg Morphine Sulfate (Morphine) 2 mg IVP Q4H PRN PRN Reason: Pain, severe (8-10) Last Admin: 08/16/17 06:26 Dose: 2 mg Oxycodone HCl (Oxycodone Immediate Release Tab) 30 mg PO Q6H PRN PRN Reason: Pain, severe (8-10) Last Admin: 08/15/17 22:23 Dose: 30 mg Pantoprazole Sodium (Protonix Ec Tab) 40 mg PO ACB [facility] Last Admin: 08/15/17 13:34 Dose: 40 mg Potassium Chloride (K-Dur 20 Meq Er Tab) 20 meq PO DAILY [facility] Last Admin: 08/15/17 13:34 Dose: 20 meq - Labs Labs: 08/16/17 06:00 08/16/17 06:00 PT 13.2 SECONDS (9.4-12.5) H 08/15/17 05:30 INR 1.14 (0.93-1.08) H 08/15/17 05:30 Attending/Attestation - Attestation I have personally seen and examined this patient.: Yes I have fully participated in the care of the patient.: Yes I have reviewed all pertinent clinical information, including history, physical exam and plan: Yes Notes (Text): 08/16/17 07:53 Medical record note made by the resident after discussion with my direction and input after the patient was personally seen and examined by me. I have reviewed the chart and agree that the record accurately reflects by personal performance of the history, physical exam, data review, and medical decision-making, in the course for the patient. I have also personally directed the plan of care. 61 year old female with PMH of metastatic breast cancer, SP 4 weeks of IV antibiotic for gram positive bacteremia (june 2017), CHF with both systolic and diastolic dysfunction (last Echo showed EF 40% and diastolic CHF) was admitted with mechanical fall , found to have distal tibial, distal fibula and medial malleolar fracture. Patient CHF is well compensated with current medical therapy.She is not on overt heart failure Cardiology evaluation is appreciated. Patient is cleared for surgery by cardiology.She is currently on Posterior splint, Podiatry is following. Management plan was discussed in detail with patient. Education was provided. 08/16/17 07:54
[2017-08-15] MEDS: Pantoprazole 40 mg EC Tab PO SCH (13:34)
[2017-08-15] MEDS: Potassium Chloride 20 mEq ER Tab PO SCH (13:34)
--- NOTE | 2017-08-15 22:02 | CON ---
DATE: 08/15/2017 LOCATION: The patient in room 277, bed 1. REASON FOR CONSULTATION: Fall, fracture of ankle, preop evaluation, risk stratification, hypertension, CA of the breast with metastasis to the bone. HISTORY OF PRESENT ILLNESS: The patient is a 61-year-old female, known case of carcinoma of the breast with metastasis stage IV, metastasis to the bone, history of hypertension. She says that she was walking in the kitchen when there was uneven surface and she tripped on that uneven surface and fell backward and now, the patient is found to have fracture of the ankle. The patient denies any chest pain, shortness of breath, palpitation, nausea, vomiting, or dizziness associated with this fall. PAST MEDICAL HISTORY: Significant for hypertension, stage IV breast carcinoma with metastasis to bone, carcinoma started with invasive ductal carcinoma of the breast. The patient goes to [facility] for its management. On last admission in June, the patient's echo showed LV ejection fraction of 40%. The patient was admitted in June with sepsis. Past history is positive for hypertension as mentioned above. The patient is getting treatment for invasive ductal carcinoma of breast stage IV with metastasis to the bones. PAST SURGICAL HISTORY: Right hip surgery. PERSONAL HISTORY: Denies smoking. Drinks only socially. ALLERGIES: THE PATIENT DENIES ANY ALLERGIES. FAMILY HISTORY: Not significant. REVIEW OF SYSTEMS: All the systems reviewed, positive mentioned in the history, others were negative. PHYSICAL EXAMINATION: VITAL SIGNS: Blood pressure 115/60, respirations 20, pulse 78, temperature 99.8. HEENT: Head is normocephalic. Eyes; pupils normal, conjunctivae slightly pale. NECK: JVP low. Carotid equal. THORAX: AP diameter normal. LUNGS: Clear. CARDIOVASCULAR: S1 and S2. ABDOMEN: Soft. No tenderness. No organomegaly. Bowel sounds normal. EXTREMITIES: No clubbing. No cyanosis. LABORATORY DATA: WBC 11.5; hemoglobin 7.5, on admission hemoglobin was 8.2; hematocrit now is 23.5, on admission it was 26.1; platelets 245. Sodium 138, potassium 4.2, BUN 19, creatinine 1.5, glucose 94, calcium 9.2. AST, ALT normal. Total protein, albumin normal. Prothrombin time 13.2, INR 1.14. The patient's EKG showed regular sinus rhythm, moderate voltage criteria for LVH, may be normal variant, nonspecific ST-T changes. Chest x-ray showed no active disease. Ankle x-ray showed medial malleolar fracture, distal tibial fracture, anterior malleolar fracture on the left foot. Head CAT scan showed minor chronic periventricular white matter ischemic changes with chronic-appearing bilateral basal nuclei, lacunar type infarction, mild generalized volume loss. DIAGNOSES: Mechanical fall, fracture of left malleolus, hypertension, stage IV invasive ductal carcinoma of the breast with metastasis to the bones, anemia. The patient had echocardiogram on 06/17/2017 which showed left ventricular ejection fraction of 40%, right ventricular systolic pressure 34 mmHg suggestive of very mild pulmonary hypertension, mild mitral regurgitation, grade 1 abnormal diastolic relaxation suggestive of diastolic dysfunction. PLAN: The patient is going to go for surgery. The patient will probably need blood transfusion. Her hemoglobin and hematocrit are markedly low. Clinically, the patient's cardiac status at this time is stable. No evidence of CHF, no evidence of any coronary artery disease clinically. So, the patient is on hydralazine 50 mg b.i.d., aspirin 81 mg daily, heparin 5000 units subcutaneous every 8 hours, potassium 20 mEq p.o. daily, metoprolol tartrate 50 mg b.i.d., Neurontin 300 mg t.i.d., Plavix 75 daily, Protonix 40 daily, sodium chloride IV fluid was stopped earlier, lisinopril 10 mg daily, hydroxyzine pamoate 25 mg p.o. every 8 hours p.r.n. From cardiac point of view, the patient can go for surgery as a moderate risk because of anemia, hypertension, and stage IV metastatic carcinoma of invasive ductal type. We will follow with you. Ignacio Crandall MD
[2017-08-16] MEDS: Morphine 2 mg/2 mL syringe IVP PRN ×3 (00:04→12:02)
[2017-08-16 07:07] LABS: BASO # 0.05 K/mm3 (0.0-2.0); BASO % 0.5 % (0.0-3.0); EOS % 10.3 % (1.5-5.0); GRAN # 4.75 (1.4-6.5); GRAN % 50.6 % (50.0-68.0); HEMOGLOBIN 7.3 g/dL (12.0-16.0); LYMPH # 2.3 (1.2-3.4); LYMPH % 24.3 % (22.0-35.0); MEAN CELL VOLUME 87.6 fl (80.0-105.0); MEAN CORPUSCULAR HEMOGLOBIN 28.3 pg (25.0-35.0); MEAN CORPUSCULAR HGB CONC 32.3 g/dl (31.0-37.0); MEAN PLATELET VOLUME 8.4 fl (7.0-11.0); MONO # 1.3 (0.1-0.6); MONO % 14.3 % (1.0-6.0); RBC 2.58 10^6/uL (3.5-6.1); RED CELL DISTRIBUTION WIDTH 17.8 % (11.5-14.5); WHITE BLOOD COUNT 9.4 10^3/ul (4.5-11.0)
[2017-08-16 07:49] LABS: ALBUMIN 3.7 g/dL (3.0-4.8); ALT/SGPT 24 U/L (7-56); AST/SGOT 41 U/L (14-36); BLOOD UREA NITROGEN 18 mg/dL (7-21); CALCIUM 9.3 mg/dL (8.4-10.5); GFR AFRICAN-AMERICAN > 60; GFR NON-AFRICAN AMERICAN 50
[2017-08-16] MEDS: Pantoprazole 40 mg EC Tab PO SCH (07:56)
[2017-08-16] MEDS: Potassium Chloride 20 mEq ER Tab PO SCH (10:07)
[2017-08-16] MEDS: oxyCODONE 30 mg Immediate Release Tab PO PRN ×2 (10:08→18:31)
--- NOTE | 2017-08-16 11:34 | CP.PCM.PN ---
Subjective - Date & Time of Evaluation Date of Evaluation: 08/16/17 Time of Evaluation: 11:33 - Subjective Subjective: 61 y/o female seen at bedside this morning regarding left ankle fracture. Pt reports pain to the left lower extremity in the area of the fracture site. States the splint has remained intact and is not too tight. Denies numbness tingling or burning to the LLE. Denies F/C/N/V/CP/SOB. She states she is concerned about going home as she has 30 stairs to climb and would not be able to do so in a stable manner with crutches Objective - Vital Signs/Intake and Output Vital Signs (last 24 hours): Temp Pulse Resp BP Pulse Ox 99.0 F 85 20 133/69 99 08/16/17 06:00 08/16/17 10:08 08/16/17 06:00 08/16/17 10:08 08/16/17 06:00 Intake and Output: 08/16/17 08/16/17 06:59 18:59 Intake Total 240 Output Total 1200 Balance -960 - Medications Medications: Current Medications Aspirin (Aspirin Chewable) 81 mg PO DAILY [facility] Last Admin: 08/16/17 10:08 Dose: 81 mg Clopidogrel Bisulfate (Plavix) 75 mg PO DAILY [facility] Last Admin: 08/16/17 10:08 Dose: Not Given Docusate Sodium (Colace) 100 mg PO TID [facility] Last Admin: 08/16/17 10:07 Dose: 100 mg Furosemide (Lasix) 40 mg IV ONCE ONE Stop: 08/16/17 12:01 Gabapentin (Neurontin) 300 mg PO TID [facility] PRN Reason: Protocol Last Admin: 08/16/17 10:07 Dose: 300 mg Heparin Sodium (Porcine) (Heparin) 5,000 units SC Q8 [facility] PRN Reason: Protocol Last Admin: 08/16/17 06:02 Dose: Not Given Hydralazine HCl (Apresoline) 50 mg PO TID [facility] Last Admin: 08/16/17 10:08 Dose: 50 mg Hydroxyzine Pamoate (Vistaril) 25 mg PO Q8H PRN; Protocol PRN Reason: Itching / Pruritus Last Admin: 08/15/17 18:10 Dose: 25 mg Lisinopril (Zestril) 10 mg PO DAILY [facility] Last Admin: 08/16/17 10:07 Dose: 10 mg Metoprolol Tartrate (Lopressor) 50 mg PO BID [facility] Last Admin: 08/16/17 10:07 Dose: 50 mg Morphine Sulfate (Morphine) 2 mg IVP Q4H PRN PRN Reason: Pain, severe (8-10) Last Admin: 08/16/17 06:26 Dose: 2 mg Oxycodone HCl (Oxycodone Immediate Release Tab) 30 mg PO Q6H PRN PRN Reason: Pain, severe (8-10) Last Admin: 08/16/17 10:08 Dose: 30 mg Pantoprazole Sodium (Protonix Ec Tab) 40 mg PO ACB [facility] Last Admin: 08/16/17 07:56 Dose: 40 mg Potassium Chloride (K-Dur 20 Meq Er Tab) 20 meq PO DAILY [facility] Last Admin: 08/16/17 10:07 Dose: 20 meq - Labs Labs: 08/16/17 06:00 08/16/17 06:00 PT 13.2 SECONDS (9.4-12.5) H 08/15/17 05:30 INR 1.14 (0.93-1.08) H 08/15/17 05:30 - Constitutional Appears: Well, Non-toxic, No Acute Distress - Extremities Exam Additional comments: LLE with posterior splint clean dry and intact No Strikethrough pt able to wiggle toes freely CFT < 3 sec to all digits - Neurological Exam Neurological Exam: Alert, Awake, Oriented x3 - Psychiatric Exam Psychiatric exam: Normal Affect, Normal Mood Assessment and Plan - Assessment and Plan (Free Text) Assessment: 61 y/o female with PMHx of 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 Munson Labs, chart, vitals reviewed (afebrile, leukocytosis) L ankle X-ray reviewed- oblique displaced distal fibular fracture at level of ankle joint, medial malleolar fx with increased medial clear space, fx of distal tibia at anterior malleolus Patient to keep posterior splint C/D/I and remain NWB at all times to LLE Medical and cardiac clearance obtained and in chart Pt to go to OR for L ankle ORIF with Dr. Munson early next week Will continue to follow patient while in house
--- NOTE | 2017-08-16 13:20 | CP.PCM.PN ---
<Jerry Beach - Last Filed: 08/16/17 13:06> Subjective - Date & Time of Evaluation Date of Evaluation: 08/16/17 Time of Evaluation: 13:06 - Subjective Subjective: Patient seen and evaluated this AM. No acute events reported overnight. Patient reports pain associated with left ankle, managed with medication at this time. Denies chest pain, shortness of breath, cough, dizziness, palpitations, nausea, vomiting. Objective - Vital Signs/Intake and Output Vital Signs (last 24 hours): Temp Pulse Resp BP Pulse Ox 99 F 70 18 90/46 L 99 08/16/17 11:44 08/16/17 11:44 08/16/17 11:44 08/16/17 11:44 08/16/17 06:00 Intake and Output: 08/16/17 08/16/17 06:59 18:59 Intake Total 240 Output Total 1200 Balance -960 - Medications Medications: Current Medications Aspirin (Aspirin Chewable) 81 mg PO DAILY [facility] Last Admin: 08/16/17 10:08 Dose: 81 mg Clopidogrel Bisulfate (Plavix) 75 mg PO DAILY [facility] Last Admin: 08/16/17 10:08 Dose: Not Given Docusate Sodium (Colace) 100 mg PO TID [facility] Last Admin: 08/16/17 10:07 Dose: 100 mg Gabapentin (Neurontin) 300 mg PO TID [facility] PRN Reason: Protocol Last Admin: 08/16/17 10:07 Dose: 300 mg Heparin Sodium (Porcine) (Heparin) 5,000 units SC Q8 [facility] PRN Reason: Protocol Last Admin: 08/16/17 06:02 Dose: Not Given Hydralazine HCl (Apresoline) 50 mg PO TID [facility] Last Admin: 08/16/17 10:08 Dose: 50 mg Hydroxyzine Pamoate (Vistaril) 25 mg PO Q8H PRN; Protocol PRN Reason: Itching / Pruritus Last Admin: 08/16/17 12:02 Dose: 25 mg Lisinopril (Zestril) 10 mg PO DAILY [facility] Last Admin: 08/16/17 10:07 Dose: 10 mg Metoprolol Tartrate (Lopressor) 50 mg PO BID [facility] Last Admin: 08/16/17 10:07 Dose: 50 mg Morphine Sulfate (Morphine) 2 mg IVP Q4H PRN PRN Reason: Pain, severe (8-10) Last Admin: 08/16/17 12:02 Dose: 2 mg Oxycodone HCl (Oxycodone Immediate Release Tab) 30 mg PO Q6H PRN PRN Reason: Pain, severe (8-10) Last Admin: 08/16/17 10:08 Dose: 30 mg Pantoprazole Sodium (Protonix Ec Tab) 40 mg PO ACB [facility] Last Admin: 08/16/17 07:56 Dose: 40 mg Potassium Chloride (K-Dur 20 Meq Er Tab) 20 meq PO DAILY [facility] Last Admin: 08/16/17 10:07 Dose: 20 meq - Labs Labs: 08/16/17 06:00 08/16/17 06:00 PT 13.2 SECONDS (9.4-12.5) H 08/15/17 05:30 INR 1.14 (0.93-1.08) H 08/15/17 05:30 - Constitutional Appears: No Acute Distress - Head Exam Head Exam: ATRAUMATIC, NORMAL INSPECTION, NORMOCEPHALIC - Eye Exam Eye Exam: EOMI, PERRL - Respiratory Exam Respiratory Exam: Clear to Ausculation Bilateral, NORMAL BREATHING PATTERN. absent: Wheezes - Cardiovascular Exam Cardiovascular Exam: REGULAR RHYTHM, +S1, +S2 - GI/Abdominal Exam GI & Abdominal Exam: Soft, Normal Bowel Sounds. absent: Tenderness - Extremities Exam Extremities Exam: Normal Capillary Refill Additional comments: left ankle with posterior splint and with jhon wrap - Neurological Exam Neurological Exam: Alert, Awake, Oriented x3 - Psychiatric Exam Psychiatric exam: Anxious, Normal Mood - Skin Skin Exam: Dry, Warm Assessment and Plan - Assessment and Plan (Free Text) Assessment: 61 year old female with PMH of metastatic breast cancer, SP 4 weeks of IV antibiotic for gram positive bacteremia (june 2017), CHF with both systolic and diastolic dysfunction (last Echo showed EF 40% and diastolic CHF) was admitted with mechanical fall , found to have distal tibial, distal fibula and medial malleolar fracture. Plan: Displaced lateral malleolar fracture Details: - Status post mechanical fall - Left ankle xray distal tibial, distal fibula, medial malleolar fracture - Left lower extremity with good pulse, color, warm, dry to touch - Neurovascularly intact - Orthopedic surgery consulted, referring to podiatry - Podiatry consulted - Cardiology consulted, medically cleared for surgery Plan: - Follow up Podiatry recs - posterior splint, NWB, OR for L ankle ORIF with Dr. Munson - Pain management Anemia Details: - Hgb 7.3, admission noted to be 8.2 - Transfuse 2 units pRBC - monitor HTN - BP stable to hypotensive, holding parameters for home anti-htn - continue to monitor Stage IV breast cancer with bone mets - Oncologist Dr. Vicente in [place] for infusions - Oxycodone 30mg q6 prn CAD - asa, plavix GI/DVT ppx - protonix - SCD Dispo: Patient is unsafe for discharge, PT recommending MARYJANE, patient with 30+ steps and uneven ground, will transfuse blood, monitor and continue to manage patient in hospital Case and Plan discussed with attending <Ignacio Silva - Last Filed: 08/16/17 18:45> Objective - Vital Signs/Intake and Output Vital Signs (last 24 hours): Temp Pulse Resp BP Pulse Ox 99.2 F 67 18 128/60 99 08/16/17 17:12 08/16/17 18:30 08/16/17 17:12 08/16/17 18:30 08/16/17 06:00 Intake and Output: 08/16/17 08/16/17 06:59 18:59 Intake Total 240 1095 Output Total 1200 800 Balance -960 295 - Medications Medications: Current Medications Aspirin (Aspirin Chewable) 81 mg PO DAILY [facility] Last Admin: 08/16/17 10:08 Dose: 81 mg Clopidogrel Bisulfate (Plavix) 75 mg PO DAILY [facility] Last Admin: 08/16/17 10:08 Dose: Not Given Docusate Sodium (Colace) 100 mg PO TID [facility] Last Admin: 08/16/17 18:30 Dose: 100 mg Gabapentin (Neurontin) 300 mg PO TID [facility] PRN Reason: Protocol Last Admin: 08/16/17 18:30 Dose: 300 mg Heparin Sodium (Porcine) (Heparin) 5,000 units SC Q8 [facility] PRN Reason: Protocol Last Admin: 08/16/17 13:15 Dose: Not Given Hydralazine HCl (Apresoline) 50 mg PO TID [facility] Last Admin: 08/16/17 18:30 Dose: 50 mg Hydromorphone HCl (Dilaudid) 1 mg IVP Q3H PRN PRN Reason: Pain, severe (8-10) Hydroxyzine Pamoate (Vistaril) 25 mg PO Q8H PRN; Protocol PRN Reason: Itching / Pruritus Last Admin: 08/16/17 12:02 Dose: 25 mg Lisinopril (Zestril) 10 mg PO DAILY [facility] Last Admin: 08/16/17 10:07 Dose: 10 mg Metoprolol Tartrate (Lopressor) 50 mg PO BID [facility] Last Admin: 08/16/17 18:30 Dose: 50 mg Oxycodone HCl (Oxycodone Immediate Release Tab) 30 mg PO Q6H PRN PRN Reason: Pain, severe (8-10) Last Admin: 08/16/17 18:31 Dose: 30 mg Pantoprazole Sodium (Protonix Ec Tab) 40 mg PO ACB [facility] Last Admin: 08/16/17 07:56 Dose: 40 mg Potassium Chloride (K-Dur 20 Meq Er Tab) 20 meq PO DAILY [facility] Last Admin: 08/16/17 10:07 Dose: 20 meq - Labs Labs: 08/16/17 06:00 08/16/17 06:00 PT 13.2 SECONDS (9.4-12.5) H 08/15/17 05:30 INR 1.14 (0.93-1.08) H 08/15/17 05:30 Attending/Attestation - Attestation I have personally seen and examined this patient.: Yes I have fully participated in the care of the patient.: Yes I have reviewed all pertinent clinical information, including history, physical exam and plan: Yes Notes (Text): 08/16/17 18:42 Medical record note made by the resident after discussion with my direction and input after the patient was personally seen and examined by me. I have reviewed the chart and agree that the record accurately reflects by personal performance of the history, physical exam, data review, and medical decision-making, in the course for the patient. I have also personally directed the plan of care 61 year old female with PMH of metastatic breast cancer, SP 4 weeks of IV antibiotic for gram positive bacteremia (june 2017), CHF with both systolic and diastolic dysfunction (last Echo showed EF 40% and diastolic CHF).She was admitted with mechanical fall , found to have distal tibial, distal fibula and medial malleolar fracture. Patient CHF is well compensated with current medical therapy.. Patient is cleared for surgery by cardiology.She is currently on Posterior splint, Podiatry is planning for surgery next week. Patient hemoglobin was 7.3 today,we will transfuse one unit of PRBC. Management plan was discussed in detail with patient. Education was provided.
--- NOTE | 2017-08-16 14:32 | PN ---
DATE: 08/16/2017 REASON FOR CONSULTATION AND FOLLOWUP: Status post fall, fracture of ankle, preoperative evaluation and risk stratification, history of breast CA with mets to the bone. SUBJECTIVE: Patient denies any chest pain, shortness of breath or any palpitation. Awaiting to go to OR for left ankle surgery. PHYSICAL EXAMINATION: GENERAL: Not in apparent distress, complaining of [id number] pain at fracture site. VITAL SIGNS: Temperature , heart rate 71, blood pressure 118/54. HEENT: PERRLA. Extraocular muscle intact. NECK: Supple. No carotid bruit or thyromegaly. CHEST: Clear to auscultation. HEART: S1 and S2 regular. ABDOMEN: Soft. EXTREMITIES: Clubbing and cyanosis negative. LABORATORY DATA: Blood workup as follows: WBC 9.5, hemoglobin 7.3, hematocrit 22.6, platelet count 193. Chemistry shows sodium , potassium , chloride 102, carbon dioxide 26, anion gap of 30, BUN 18, creatinine 1.1. Patient had echocardiography done in the last admission showed ejection fraction of 40% dated 06/17/2017, right ventricular systolic pressure 34, mild mitral regurgitation. IMPRESSION: Anemia, status post fall, fracture of left tibial malleolus, hypertension, stage IV invasive ductal carcinoma of the breast, metastasis to the bone. RECOMMENDATIONS: Continue aggressive control of blood pressure. Patient is on hydralazine 50 mg three times a day. Continue DVT prophylaxis. Continue metoprolol 50 twice a day. We will give 2 units of packed RBC transfusion today and keep hemoglobin . We will follow with you. We will give 40 of Lasix in between the two transfusions. Continue beta-deandre. Patient is cleared to go for surgery. No absolute contraindication. No evidence of congestive heart failure. No evidence of ischemia. No evidence of arrhythmia. No contraindication. Patient is cleared to go with moderate risk because . We will give 2 units of packed RBC. Thank you, Dr. Ratliff, for providing us the opportunity in taking care of patient, Denia Strauss. We will follow with you. Ignacio Perry MD [facility] # [id number]
[2017-08-16] MEDS ORDERED: Morphine 4 mg/ml ISec IVP PRN (16:05)
[2017-08-17 06:42] LABS: BASO # 0.07 K/mm3 (0.0-2.0); BASO % 0.6 % (0.0-3.0); EOS # 1.6 (0.0-0.7); EOS % 14.7 % (1.5-5.0); GRAN # 5.48 (1.4-6.5); GRAN % 49.8 % (50.0-68.0); HEMOGLOBIN 9.3 g/dL (12.0-16.0); LYMPH # 2.6 (1.2-3.4); LYMPH % 23.5 % (22.0-35.0); MEAN CELL VOLUME 86.2 fl (80.0-105.0); MEAN CORPUSCULAR HEMOGLOBIN 28.4 pg (25.0-35.0); MEAN PLATELET VOLUME 8.8 fl (7.0-11.0); MONO # 1.3 (0.1-0.6); MONO % 11.4 % (1.0-6.0); RBC 3.27 10^6/uL (3.5-6.1); RED CELL DISTRIBUTION WIDTH 18.2 % (11.5-14.5)
[2017-08-17 06:55] LABS: ALBUMIN 3.8 g/dL (3.0-4.8); CALCIUM 9.5 mg/dL (8.4-10.5)
--- NOTE | 2017-08-17 07:54 | CP.PCM.PN ---
<Jo-Ann Carlson - Last Filed: 08/17/17 13:19> Subjective - Date & Time of Evaluation Date of Evaluation: 08/17/17 Time of Evaluation: 07:54 - Subjective Subjective: Internal Medicine Progress Note: Patient seen and examined at bedside. Patient is s/p 2 units PRBCs. Patient is doing well, offering no complaints at this time. Patient for the OR on Saturday with Podiatry. Denies headaches, dizziness, cp, palpitations, sob, abdominal pain, urinary symptoms. Objective - Vital Signs/Intake and Output Vital Signs (last 24 hours): Temp Pulse Resp BP Pulse Ox 99.8 F H 75 18 146/71 99 08/17/17 00:01 08/17/17 02:00 08/17/17 00:01 08/17/17 00:01 08/16/17 06:00 Intake and Output: 08/17/17 08/17/17 06:59 18:59 Intake Total 625 Output Total 1950 Balance -1325 - Medications Medications: Current Medications Aspirin (Aspirin Chewable) 81 mg PO DAILY [facility] Last Admin: 08/16/17 10:08 Dose: 81 mg Clopidogrel Bisulfate (Plavix) 75 mg PO DAILY [facility] Last Admin: 08/16/17 10:08 Dose: Not Given Docusate Sodium (Colace) 100 mg PO TID [facility] Last Admin: 08/16/17 18:30 Dose: 100 mg Gabapentin (Neurontin) 300 mg PO TID [facility] PRN Reason: Protocol Last Admin: 08/16/17 18:30 Dose: 300 mg Heparin Sodium (Porcine) (Heparin) 5,000 units SC Q8 [facility] PRN Reason: Protocol Last Admin: 08/17/17 06:28 Dose: Not Given Hydralazine HCl (Apresoline) 50 mg PO TID [facility] Last Admin: 08/16/17 18:30 Dose: 50 mg Hydromorphone HCl (Dilaudid) 1 mg IVP Q3H PRN PRN Reason: Pain, severe (8-10) Hydroxyzine Pamoate (Vistaril) 25 mg PO Q8H PRN; Protocol PRN Reason: Itching / Pruritus Last Admin: 08/16/17 12:02 Dose: 25 mg Lisinopril (Zestril) 10 mg PO DAILY [facility] Last Admin: 05/04/18 10:07 Dose: 10 mg Metoprolol Tartrate (Lopressor) 50 mg PO BID [facility] Last Admin: 08/16/17 18:30 Dose: 50 mg Oxycodone HCl (Oxycodone Immediate Release Tab) 30 mg PO Q6H PRN PRN Reason: Pain, severe (8-10) Last Admin: 08/16/17 18:31 Dose: 30 mg Pantoprazole Sodium (Protonix Ec Tab) 40 mg PO ACB [facility] Last Admin: 08/16/17 07:56 Dose: 40 mg Potassium Chloride (K-Dur 20 Meq Er Tab) 20 meq PO DAILY [facility] Last Admin: 08/16/17 10:07 Dose: 20 meq - Labs Labs: 08/17/17 06:00 08/17/17 06:00 PT 13.2 SECONDS (9.4-12.5) H 08/15/17 05:30 INR 1.14 (0.93-1.08) H 08/15/17 05:30 - Additional Findings Additional findings: - Constitutional Appears: No Acute Distress - Head Exam Head Exam: ATRAUMATIC, NORMAL INSPECTION, NORMOCEPHALIC - Eye Exam Eye Exam: EOMI, PERRL - Respiratory Exam Respiratory Exam: Clear to Ausculation Bilateral, NORMAL BREATHING PATTERN. absent: Wheezes - Cardiovascular Exam Cardiovascular Exam: REGULAR RHYTHM, +S1, +S2 - GI/Abdominal Exam GI & Abdominal Exam: Soft, Normal Bowel Sounds. absent: Tenderness - Extremities Exam Extremities Exam: Normal Capillary Refill Additional comments: left ankle with posterior splint and with jhon wrap - Neurological Exam Neurological Exam: Alert, Awake, Oriented x3 - Psychiatric Exam Psychiatric exam: Anxious, Normal Mood - Skin Skin Exam: Dry, Warm Assessment and Plan - Assessment and Plan (Free Text) Assessment: 61 year old female with PMH of metastatic breast cancer, SP 4 weeks of IV antibiotic for gram positive bacteremia (june 2017), CHF with both systolic and diastolic dysfunction (last Echo showed EF 40% and diastolic CHF) was admitted with mechanical fall , found to have distal tibial, distal fibula and medial malleolar fracture. Plan: Displaced lateral malleolar fracture - Status post mechanical fall - Left ankle xray distal tibial, distal fibula, medial malleolar fracture - Left lower extremity with good pulse, color, warm, dry to touch - Neurovascularly intact - Orthopedic surgery consulted, referring to podiatry - Podiatry consulted - Cardiology consulted, medically cleared for surgery - Follow up Podiatry recs - Posterior splint, NWB, OR for L ankle ORIF with Dr. Munson - Pain management Anemia - Hgb 7.3, admission noted to be 8.2 - s/p 2 units pRBC - post transfusion CBC 9.3 - monitor HTN - BP stable to hypotensive, holding parameters for home anti-htn - continue to monitor Stage IV breast cancer with bone mets - Oncologist Dr. Vicente in [place] for infusions - Oxycodone 30mg q6 prn CAD - asa, plavix GI/DVT ppx - protonix - SCD Dispo: Patient is unsafe for discharge, PT recommending MARYJANE, patient with 30+ steps and uneven ground, monitor and continue to manage patient in hospital. Patient for the OR on Saturday with Podiatry. Case and Plan discussed with attending <Sharan Ratliff - Last Filed: 08/17/17 14:24> Objective - Vital Signs/Intake and Output Vital Signs (last 24 hours): Temp Pulse Resp BP Pulse Ox 98.8 F 65 18 113/59 L 96 08/17/17 12:00 08/17/17 12:00 08/17/17 12:00 08/17/17 12:00 08/17/17 12:00 Intake and Output: 08/17/17 08/17/17 06:59 18:59 Intake Total 1000 700 Output Total 1950 1000 Balance -950 -300 - Medications Medications: Current Medications Aspirin (Aspirin Chewable) 81 mg PO DAILY [facility] Last Admin: 08/17/17 08:59 Dose: 81 mg Clopidogrel Bisulfate (Plavix) 75 mg PO DAILY [facility] Last Admin: 08/17/17 09:01 Dose: Not Given Docusate Sodium (Colace) 100 mg PO TID [facility] Last Admin: 08/17/17 08:59 Dose: 100 mg Gabapentin (Neurontin) 300 mg PO TID [facility] PRN Reason: Protocol Last Admin: 08/17/17 09:07 Dose: 300 mg Heparin Sodium (Porcine) (Heparin) 5,000 units SC Q8 [facility] PRN Reason: Protocol Last Admin: 08/17/17 06:28 Dose: Not Given Hydralazine HCl (Apresoline) 50 mg PO TID [facility] Last Admin: 08/17/17 09:01 Dose: 50 mg Hydromorphone HCl (Dilaudid) 1 mg IVP Q3H PRN PRN Reason: Pain, severe (8-10) Last Admin: 08/17/17 09:00 Dose: 1 mg Hydroxyzine Pamoate (Vistaril) 25 mg PO Q8H PRN; Protocol PRN Reason: Itching / Pruritus Last Admin: 08/16/17 12:02 Dose: 25 mg Lisinopril (Zestril) 10 mg PO DAILY [facility] Last Admin: 08/17/17 09:02 Dose: 10 mg Metoprolol Tartrate (Lopressor) 50 mg PO BID [facility] Last Admin: 08/17/17 09:01 Dose: 50 mg Oxycodone HCl (Oxycodone Immediate Release Tab) 30 mg PO Q6H PRN PRN Reason: Pain, severe (8-10) Last Admin: 08/17/17 11:57 Dose: 30 mg Pantoprazole Sodium (Protonix Ec Tab) 40 mg PO ACB [facility] Last Admin: 08/17/17 08:44 Dose: 40 mg Potassium Chloride (K-Dur 20 Meq Er Tab) 20 meq PO DAILY [facility] Last Admin: 08/17/17 08:59 Dose: 20 meq - Labs Labs: 08/17/17 06:00 08/17/17 06:00 PT 13.2 SECONDS (9.4-12.5) H 08/15/17 05:30 INR 1.14 (0.93-1.08) H 08/15/17 05:30 Attending/Attestation - Attestation I have personally seen and examined this patient.: Yes I have fully participated in the care of the patient.: Yes I have reviewed all pertinent clinical information, including history, physical exam and plan: Yes Notes (Text): I have seen and examined the patient at bedside. Agree with the above note with the following additions/ exceptions: Briefly this is 61 year old female with history of metastatic breast cancer, s/p 4 weeks of IV antibiotic for gram positive bacteremia (june 2017), CHF with both systolic and diastolic dysfunction (last Echo showed EF 40% and diastolic CHF).She was admitted with mechanical fall , found to have distal tibial, distal fibula and medial malleolar fracture. Patient CHF is well compensated with current medical therapy.. Patient is cleared for surgery by cardiology. She is currently on Posterior splint. Podiatry is planning for surgery next week. Hb improved to 9.3 after 2 units of PRBC. Upon discharge patient will follow up with Dr Crooks.
[2017-08-17] MEDS: Pantoprazole 40 mg EC Tab PO SCH (08:44)
[2017-08-17] MEDS: Potassium Chloride 20 mEq ER Tab PO SCH (08:59)
[2017-08-17] MEDS: HYDROmorphone 1 mg/ml ISec IVP PRN ×3 (09:00→20:11)
--- NOTE | 2017-08-17 09:28 | CP.PCM.PN ---
Subjective - Date & Time of Evaluation Date of Evaluation: 08/17/17 Time of Evaluation: 06:55 - Subjective Subjective: Awake, doing okay, leg hurting, denies chest pain, denies shortness of breath Reason for consultation and follow up: Cardiac evaluation/clearance for surgery , left malleolar fracture, post fall secondary to lightheadedness,hypertension, coronary artery disease, Stage 4 breast cancer with bone metastasis. Seen and examined by me and Dr. Crandall Objective - Vital Signs/Intake and Output Vital Signs (last 24 hours): Temp Pulse Resp BP Pulse Ox 99.8 F H 77 18 147/75 99 08/17/17 00:01 08/17/17 09:02 08/17/17 00:01 08/17/17 09:02 08/16/17 06:00 Intake and Output: 08/17/17 08/17/17 06:59 18:59 Intake Total 625 Output Total 1950 Balance -1325 - Medications Medications: Current Medications Aspirin (Aspirin Chewable) 81 mg PO DAILY [facility] Last Admin: 08/17/17 08:59 Dose: 81 mg Clopidogrel Bisulfate (Plavix) 75 mg PO DAILY [facility] Last Admin: 08/17/17 09:01 Dose: Not Given Docusate Sodium (Colace) 100 mg PO TID [facility] Last Admin: 08/17/17 08:59 Dose: 100 mg Gabapentin (Neurontin) 300 mg PO TID [facility] PRN Reason: Protocol Last Admin: 08/17/17 09:07 Dose: 300 mg Heparin Sodium (Porcine) (Heparin) 5,000 units SC Q8 [facility] PRN Reason: Protocol Last Admin: 08/17/17 06:28 Dose: Not Given Hydralazine HCl (Apresoline) 50 mg PO TID [facility] Last Admin: 08/17/17 09:01 Dose: 50 mg Hydromorphone HCl (Dilaudid) 1 mg IVP Q3H PRN PRN Reason: Pain, severe (8-10) Last Admin: 08/17/17 09:00 Dose: 1 mg Hydroxyzine Pamoate (Vistaril) 25 mg PO Q8H PRN; Protocol PRN Reason: Itching / Pruritus Last Admin: 08/16/17 12:02 Dose: 25 mg Lisinopril (Zestril) 10 mg PO DAILY [facility] Last Admin: 08/17/17 09:02 Dose: 10 mg Metoprolol Tartrate (Lopressor) 50 mg PO BID [facility] Last Admin: 08/17/17 09:01 Dose: 50 mg Oxycodone HCl (Oxycodone Immediate Release Tab) 30 mg PO Q6H PRN PRN Reason: Pain, severe (8-10) Last Admin: 08/16/17 18:31 Dose: 30 mg Pantoprazole Sodium (Protonix Ec Tab) 40 mg PO ACB [facility] Last Admin: 08/17/17 08:44 Dose: 40 mg Potassium Chloride (K-Dur 20 Meq Er Tab) 20 meq PO DAILY [facility] Last Admin: 08/17/17 08:59 Dose: 20 meq - Labs Labs: 08/17/17 06:00 08/17/17 06:00 PT 13.2 SECONDS (9.4-12.5) H 08/15/17 05:30 INR 1.14 (0.93-1.08) H 08/15/17 05:30 - Constitutional Appears: No Acute Distress - Head Exam Head Exam: NORMOCEPHALIC - Eye Exam Eye Exam: Normal appearance - ENT Exam ENT Exam: Mucous Membranes Moist - Respiratory Exam Respiratory Exam: Clear to Ausculation Bilateral, NORMAL BREATHING PATTERN - Cardiovascular Exam Cardiovascular Exam: REGULAR RHYTHM, +S1, +S2 Additional comments: Telemetry NSR 70's - GI/Abdominal Exam GI & Abdominal Exam: Soft, Normal Bowel Sounds - Extremities Exam Additional comments: Left leg with soft cast, able to move toes with sensation,edematous - Neurological Exam Neurological Exam: Alert, Awake, Oriented x3 - Psychiatric Exam Psychiatric exam: Normal Affect, Normal Mood - Skin Skin Exam: Dry, Normal Color, Warm Assessment and Plan - Assessment and Plan (Free Text) Assessment: A 61 year old female who came in to the ER due to left ankle pain secondary to fall. She felt lightheadedness and fell x 2 and twisted her left ankle on the 2nd fall. Evaluated at ER and had left malleolar fracture. Soft cast applied on left leg. Orthopaedic on consult and possible surgery of left foot. 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 currently receiving chemotherapy,osteoarthritis, right hip surgery, Plan: Anemia, post 2 units PRBC blood transfusion Repeat hemoglobin/hematocrit 9.3/28.2 On ASA 81 mg daily,Plavix 75 mg daily,Heparin SQ, Hydralazine 50 mg TID, Lisinopril 10 mg daily,Lopressor 50 mg BID controlled BP and heart rate Continue current medications Continue current treatment As per podiatry, surgery of the ankle in the future, no date specified Will discontinue ASA and Plavix once surgery established Clear to go for surgery with moderate risk Will follow up Plan and treatment discussed with Dr. Crandall
[2017-08-17] MEDS: oxyCODONE 30 mg Immediate Release Tab PO PRN ×2 (11:57→22:20)
--- NOTE | 2017-08-17 17:34 | CT ---
PROCEDURE: CT of the left ankle HISTORY: assess for fracture of ankle COMPARISON: TECHNIQUE: Radiation dose: Total exam DLP = 413 mGy-cm. This CT exam was performed using one or more of the following dose reduction techniques: Automated exposure control, adjustment of the mA and/or kV according to patient size, and/or use of iterative reconstruction technique. FINDINGS: There is a trimalleolar displaced fracture of the ankle. There is an obliquely oriented fracture of the distal tibia above the ankle joint. There is a transverse displaced fracture of the medial malleolus. There is also a displaced fracture of the posterior lateral aspect of the articular surface of the tibia. There is disruption of the ankle joint with 12 mm of lateral displacement of the talus relative to the medial malleolus. The talar dome is intact IMPRESSION: Trimalleolar fracture with ankle dislocation
[2017-08-18] MEDS: HYDROmorphone 1 mg/ml ISec IVP PRN ×5 (01:21→21:58)
[2017-08-18] MEDS: Pantoprazole 40 mg EC Tab PO SCH (06:44)
--- NOTE | 2017-08-18 06:56 | CP.PCM.PN ---
<Jo-Ann Carlson - Last Filed: 08/18/17 15:12> Subjective - Date & Time of Evaluation Date of Evaluation: 08/18/17 Time of Evaluation: 06:56 - Subjective Subjective: Internal Medicine Progress Note: Patient seen and examined at bedside. Per nursing no acute events overnight. Patient is doing well, offers no complaints at this time. Denies headaches, dizziness, cp, palpitations, sob, abdominal pain, urinary symptoms. Objective - Vital Signs/Intake and Output Vital Signs (last 24 hours): Temp Pulse Resp BP Pulse Ox 98.0 F 62 20 130/68 97 08/18/17 06:00 08/18/17 06:00 08/18/17 06:00 08/18/17 06:00 08/18/17 06:00 Intake and Output: 08/17/17 08/18/17 18:59 06:59 Intake Total 700 480 Output Total 1000 1200 Balance -300 -720 - Medications Medications: Current Medications Aspirin (Aspirin Chewable) 81 mg PO DAILY [facility] Last Admin: 08/17/17 08:59 Dose: 81 mg Clopidogrel Bisulfate (Plavix) 75 mg PO DAILY [facility] Last Admin: 08/17/17 09:01 Dose: Not Given Docusate Sodium (Colace) 100 mg PO TID [facility] Last Admin: 08/17/17 19:01 Dose: 100 mg Gabapentin (Neurontin) 300 mg PO TID [facility] PRN Reason: Protocol Last Admin: 08/17/17 19:01 Dose: 300 mg Heparin Sodium (Porcine) (Heparin) 5,000 units SC Q8 [facility] PRN Reason: Protocol Last Admin: 08/18/17 06:44 Dose: 5,000 units Hydralazine HCl (Apresoline) 50 mg PO TID [facility] Last Admin: 08/17/17 19:02 Dose: 50 mg Hydromorphone HCl (Dilaudid) 1 mg IVP Q3H PRN PRN Reason: Pain, severe (8-10) Last Admin: 08/18/17 06:43 Dose: 1 mg Hydroxyzine Pamoate (Vistaril) 25 mg PO Q8H PRN; Protocol PRN Reason: Itching / Pruritus Last Admin: 08/17/17 14:48 Dose: 25 mg Lisinopril (Zestril) 10 mg PO DAILY [facility] Last Admin: 08/17/17 09:02 Dose: 10 mg Metoprolol Tartrate (Lopressor) 50 mg PO BID [facility] Last Admin: 08/17/17 19:01 Dose: 50 mg Oxycodone HCl (Oxycodone Immediate Release Tab) 30 mg PO Q6H PRN PRN Reason: Pain, severe (8-10) Last Admin: 08/17/17 22:20 Dose: 30 mg Pantoprazole Sodium (Protonix Ec Tab) 40 mg PO ACB [facility] Last Admin: 08/18/17 06:44 Dose: 40 mg Potassium Chloride (K-Dur 20 Meq Er Tab) 20 meq PO DAILY [facility] Last Admin: 08/17/17 08:59 Dose: 20 meq - Labs Labs: 08/17/17 06:00 08/17/17 06:00 PT 13.2 SECONDS (9.4-12.5) H 08/15/17 05:30 INR 1.14 (0.93-1.08) H 08/15/17 05:30 - Additional Findings Additional findings: - Additional Findings Additional findings: - Constitutional Appears: No Acute Distress - Head Exam Head Exam: ATRAUMATIC, NORMAL INSPECTION, NORMOCEPHALIC - Eye Exam Eye Exam: EOMI, PERRL - Respiratory Exam Respiratory Exam: Clear to Ausculation Bilateral, NORMAL BREATHING PATTERN. absent: Wheezes - Cardiovascular Exam Cardiovascular Exam: REGULAR RHYTHM, +S1, +S2 - GI/Abdominal Exam GI & Abdominal Exam: Soft, Normal Bowel Sounds. absent: Tenderness - Extremities Exam Extremities Exam: Normal Capillary Refill Additional comments: left ankle with posterior splint and with jhon wrap - Neurological Exam Neurological Exam: Alert, Awake, Oriented x3 - Psychiatric Exam Psychiatric exam: Anxious, Normal Mood - Skin Skin Exam: Dry, Warm Assessment and Plan - Assessment and Plan (Free Text) Assessment: 61 year old female with PMH of metastatic breast cancer, SP 4 weeks of IV antibiotic for gram positive bacteremia (june 2017), CHF with both systolic and diastolic dysfunction (last Echo showed EF 40% and diastolic CHF) was admitted with mechanical fall , found to have distal tibial, distal fibula and medial malleolar fracture. Plan: Displaced medial malleolar fracture - Status post mechanical fall - Left ankle xray distal tibial, distal fibula, medial malleolar fracture - Left lower extremity with good pulse, color, warm, dry to touch - Lower extremity CT shows trimalleolar fracture with ankle dislocation - Neurovascularly intact - Orthopedic surgery consulted, referring to podiatry - Podiatry consulted - Cardiology consulted, medically cleared for surgery - Follow up Podiatry recs - Posterior splint, NWB, OR for L ankle ORIF with Dr. Munson - Pain management - Aspirin and plavix on hold at this time; unclear why patient is on plavix Anemia - Hgb 7.3, admission noted to be 8.2 - s/p 2 units pRBC - post transfusion CBC 9.3 - monitor HTN - BP stable to hypotensive, holding parameters for home anti-htn - continue to monitor Stage IV breast cancer with bone mets - Oncologist Dr. Vicente in [place] for infusions - Oxycodone 30mg q6 prn CAD - asa, plavix (on hold) GI/DVT ppx - protonix - SCD Dispo: Patient is unsafe for discharge, PT recommending MARYJANE, patient with 30+ steps and uneven ground, monitor and continue to manage patient in hospital. Patient for the OR on Saturday with Podiatry. Case and Plan discussed with attending <Sharan Ratliff - Last Filed: 08/18/17 16:51> Objective - Vital Signs/Intake and Output Vital Signs (last 24 hours): Temp Pulse Resp BP Pulse Ox 99.1 F 70 19 119/65 97 08/18/17 12:00 08/18/17 14:00 08/18/17 12:00 08/18/17 13:59 08/18/17 06:00 Intake and Output: 08/18/17 08/18/17 06:59 18:59 Intake Total 480 780 Output Total 1200 850 Balance -720 -70 - Medications Medications: Current Medications Docusate Sodium (Colace) 100 mg PO TID [facility] Last Admin: 08/18/17 13:58 Dose: 100 mg Gabapentin (Neurontin) 300 mg PO TID [facility] PRN Reason: Protocol Last Admin: 08/18/17 13:59 Dose: 300 mg Heparin Sodium (Porcine) (Heparin) 5,000 units SC Q8 [facility] PRN Reason: Protocol Last Admin: 08/18/17 13:58 Dose: 5,000 units Hydralazine HCl (Apresoline) 50 mg PO TID [facility] Last Admin: 08/18/17 13:59 Dose: 50 mg Hydromorphone HCl (Dilaudid) 1 mg IVP Q3H PRN PRN Reason: Pain, severe (8-10) Last Admin: 08/18/17 10:53 Dose: 1 mg Hydroxyzine Pamoate (Vistaril) 25 mg PO Q8H PRN; Protocol PRN Reason: Itching / Pruritus Last Admin: 08/17/17 14:48 Dose: 25 mg Lisinopril (Zestril) 10 mg PO DAILY [facility] Last Admin: 08/18/17 10:04 Dose: 10 mg Metoprolol Tartrate (Lopressor) 50 mg PO BID [facility] Last Admin: 08/18/17 10:04 Dose: 50 mg Oxycodone HCl (Oxycodone Immediate Release Tab) 30 mg PO Q6H PRN PRN Reason: Pain, severe (8-10) Last Admin: 08/17/17 22:20 Dose: 30 mg Pantoprazole Sodium (Protonix Ec Tab) 40 mg PO ACB [facility] Last Admin: 08/18/17 06:44 Dose: 40 mg Potassium Chloride (K-Dur 20 Meq Er Tab) 20 meq PO DAILY [facility] Last Admin: 08/18/17 10:04 Dose: 20 meq - Labs Labs: 08/18/17 07:45 08/18/17 07:45 PT 13.2 SECONDS (9.4-12.5) H 08/15/17 05:30 INR 1.14 (0.93-1.08) H 08/15/17 05:30 Attending/Attestation - Attestation I have personally seen and examined this patient.: Yes I have fully participated in the care of the patient.: Yes I have reviewed all pertinent clinical information, including history, physical exam and plan: Yes Notes (Text): I have seen and examined the patient at bedside. Agree with the above note with the following additions/ exceptions: Briefly this is 61 year old female with history of metastatic breast cancer, s/p 4 weeks of IV antibiotic for gram positive bacteremia (june 2017), CHF with both systolic and diastolic dysfunction (last Echo showed EF 40% and diastolic CHF). She was admitted with mechanical fall, found to have distal tibial, distal fibula and medial malleolar fracture. Patient CHF is well compensated with current medical therapy. Patient is cleared for surgery by cardiology. She is currently on Posterior splint. Continue NWB. MRI reviewed. Podiatry is planning for surgery this Saturday. Hb improved after 2 units of PRBC. Continue to hold asa and plavix. Upon discharge patient will follow up with Dr Crooks.
[2017-08-18 08:00] LABS: BASO # 0.06 K/mm3 (0.0-2.0); BASO % 0.5 % (0.0-3.0); EOS # 1.9 (0.0-0.7); EOS % 16.7 % (1.5-5.0); GRAN # 5.05 (1.4-6.5); GRAN % 43.9 % (50.0-68.0); HEMOGLOBIN 9.1 g/dL (12.0-16.0); LYMPH # 3.1 (1.2-3.4); LYMPH % 26.6 % (22.0-35.0); MEAN CELL VOLUME 86.5 fl (80.0-105.0); MEAN CORPUSCULAR HEMOGLOBIN 27.3 pg (25.0-35.0); MEAN CORPUSCULAR HGB CONC 31.6 g/dl (31.0-37.0); MEAN PLATELET VOLUME 8.9 fl (7.0-11.0); MONO # 1.4 (0.1-0.6); MONO % 12.3 % (1.0-6.0); RBC 3.33 10^6/uL (3.5-6.1); RED CELL DISTRIBUTION WIDTH 17.9 % (11.5-14.5); WHITE BLOOD COUNT 11.5 10^3/ul (4.5-11.0)
--- NOTE | 2017-08-18 08:13 | CP.PCM.PN ---
Subjective - Date & Time of Evaluation Date of Evaluation: 08/18/17 Time of Evaluation: 07:05 - Subjective Subjective: Sleeping but easily awaken, doing okay,denies chest pain, denies shortness of breath Reason for consultation and follow up: Cardiac evaluation/clearance for surgery , left malleolar fracture, post fall secondary to lightheadedness,hypertension, coronary artery disease, Stage 4 breast cancer with bone metastasis. Seen and examined by me and Dr. Crandall Objective - Vital Signs/Intake and Output Vital Signs (last 24 hours): Temp Pulse Resp BP Pulse Ox 98.0 F 62 20 130/68 97 08/18/17 06:00 08/18/17 06:00 08/18/17 06:00 08/18/17 06:00 08/18/17 06:00 Intake and Output: 08/18/17 08/18/17 06:59 18:59 Intake Total 480 Output Total 1200 Balance -720 - Medications Medications: Current Medications Aspirin (Aspirin Chewable) 81 mg PO DAILY [facility] Last Admin: 08/17/17 08:59 Dose: 81 mg Clopidogrel Bisulfate (Plavix) 75 mg PO DAILY [facility] Last Admin: 08/17/17 09:01 Dose: Not Given Docusate Sodium (Colace) 100 mg PO TID [facility] Last Admin: 08/17/17 19:01 Dose: 100 mg Gabapentin (Neurontin) 300 mg PO TID [facility] PRN Reason: Protocol Last Admin: 08/17/17 19:01 Dose: 300 mg Heparin Sodium (Porcine) (Heparin) 5,000 units SC Q8 [facility] PRN Reason: Protocol Last Admin: 08/18/17 06:44 Dose: 5,000 units Hydralazine HCl (Apresoline) 50 mg PO TID [facility] Last Admin: 08/17/17 19:02 Dose: 50 mg Hydromorphone HCl (Dilaudid) 1 mg IVP Q3H PRN PRN Reason: Pain, severe (8-10) Last Admin: 08/18/17 06:43 Dose: 1 mg Hydroxyzine Pamoate (Vistaril) 25 mg PO Q8H PRN; Protocol PRN Reason: Itching / Pruritus Last Admin: 08/17/17 14:48 Dose: 25 mg Lisinopril (Zestril) 10 mg PO DAILY [facility] Last Admin: 08/17/17 09:02 Dose: 10 mg Metoprolol Tartrate (Lopressor) 50 mg PO BID [facility] Last Admin: 08/17/17 19:01 Dose: 50 mg Oxycodone HCl (Oxycodone Immediate Release Tab) 30 mg PO Q6H PRN PRN Reason: Pain, severe (8-10) Last Admin: 08/17/17 22:20 Dose: 30 mg Pantoprazole Sodium (Protonix Ec Tab) 40 mg PO ACB [facility] Last Admin: 08/18/17 06:44 Dose: 40 mg Potassium Chloride (K-Dur 20 Meq Er Tab) 20 meq PO DAILY [facility] Last Admin: 08/17/17 08:59 Dose: 20 meq - Labs Labs: 08/18/17 07:45 08/17/17 06:00 PT 13.2 SECONDS (9.4-12.5) H 08/15/17 05:30 INR 1.14 (0.93-1.08) H 08/15/17 05:30 - Constitutional Appears: No Acute Distress - Eye Exam Eye Exam: Normal appearance - ENT Exam ENT Exam: Mucous Membranes Moist - Respiratory Exam Respiratory Exam: Clear to Ausculation Bilateral, NORMAL BREATHING PATTERN - Cardiovascular Exam Cardiovascular Exam: +S1, +S2 - GI/Abdominal Exam GI & Abdominal Exam: Soft, Normal Bowel Sounds - Exam Additional comments: mascorro catheter - Extremities Exam Extremities Exam: Normal Capillary Refill Additional comments: left leg with soft cast able to wiggle toes with sensation - Neurological Exam Neurological Exam: Alert, Awake, Oriented x3 - Psychiatric Exam Psychiatric exam: Normal Affect, Normal Mood - Skin Skin Exam: Intact, Normal Color, Warm Assessment and Plan - Assessment and Plan (Free Text) Assessment: A 61 year old female who came in to the ER due to left ankle pain secondary to fall. She felt lightheadedness and fell x 2 and twisted her left ankle on the 2nd fall. Evaluated at ER and had left malleolar fracture. Soft cast applied on left leg. Orthopaedic on consult and possible surgery of left foot. 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 Crandall
[2017-08-18 08:20] LABS: ALBUMIN 3.8 g/dL (3.0-4.8); ALT/SGPT 17 U/L (7-56); AST/SGOT 39 U/L (14-36); BLOOD UREA NITROGEN 21 mg/dL (7-21); CALCIUM 9.6 mg/dL (8.4-10.5); GFR AFRICAN-AMERICAN > 60; GFR NON-AFRICAN AMERICAN 50
[2017-08-18] MEDS: Potassium Chloride 20 mEq ER Tab PO SCH (10:04)
--- NOTE | 2017-08-18 11:50 | CP.PCM.PN ---
Subjective - Date & Time of Evaluation Date of Evaluation: 08/18/17 Time of Evaluation: 11:47 - Subjective Subjective: 61 y/o female seen at bedside this morning regarding left ankle fracture. Pt states that pain is well controlled at this time. States the splint has remained intact and is not too tight. Denies numbness tingling or burning to the LLE. States that she went for CT scan yesterday without incident. Denies F/C /N/V/CP/SOB. Objective - Vital Signs/Intake and Output Vital Signs (last 24 hours): Temp Pulse Resp BP Pulse Ox 98.0 F 66 20 117/62 97 08/18/17 06:00 08/18/17 10:07 08/18/17 06:00 08/18/17 10:07 08/18/17 06:00 Intake and Output: 08/18/17 08/18/17 06:59 18:59 Intake Total 480 Output Total 1200 Balance -720 - Medications Medications: Current Medications Docusate Sodium (Colace) 100 mg PO TID [facility] Last Admin: 08/18/17 10:02 Dose: 100 mg Gabapentin (Neurontin) 300 mg PO TID [facility] PRN Reason: Protocol Last Admin: 08/18/17 10:04 Dose: 300 mg Heparin Sodium (Porcine) (Heparin) 5,000 units SC Q8 [facility] PRN Reason: Protocol Last Admin: 08/18/17 06:44 Dose: 5,000 units Hydralazine HCl (Apresoline) 50 mg PO TID [facility] Last Admin: 08/18/17 10:07 Dose: 50 mg Hydromorphone HCl (Dilaudid) 1 mg IVP Q3H PRN PRN Reason: Pain, severe (8-10) Last Admin: 08/18/17 10:53 Dose: 1 mg Hydroxyzine Pamoate (Vistaril) 25 mg PO Q8H PRN; Protocol PRN Reason: Itching / Pruritus Last Admin: 08/17/17 14:48 Dose: 25 mg Lisinopril (Zestril) 10 mg PO DAILY [facility] Last Admin: 08/18/17 10:04 Dose: 10 mg Metoprolol Tartrate (Lopressor) 50 mg PO BID [facility] Last Admin: 08/18/17 10:04 Dose: 50 mg Oxycodone HCl (Oxycodone Immediate Release Tab) 30 mg PO Q6H PRN PRN Reason: Pain, severe (8-10) Last Admin: 08/17/17 22:20 Dose: 30 mg Pantoprazole Sodium (Protonix Ec Tab) 40 mg PO ACB [facility] Last Admin: 08/18/17 06:44 Dose: 40 mg Potassium Chloride (K-Dur 20 Meq Er Tab) 20 meq PO DAILY [facility] Last Admin: 08/18/17 10:04 Dose: 20 meq - Labs Labs: 08/18/17 07:45 08/18/17 07:45 PT 13.2 SECONDS (9.4-12.5) H 08/15/17 05:30 INR 1.14 (0.93-1.08) H 08/15/17 05:30 - Constitutional Appears: Well, Non-toxic, No Acute Distress - Head Exam Head Exam: ATRAUMATIC, NORMOCEPHALIC - Respiratory Exam Respiratory Exam: NORMAL BREATHING PATTERN. absent: Respiratory Distress - Extremities Exam Additional comments: Posterior splint C/D/I to left leg CFT < 3 seconds to all digits Patient able to wiggle toes without pain - Neurological Exam Neurological Exam: Alert, Awake, Oriented x3 - Psychiatric Exam Psychiatric exam: Normal Affect, Normal Mood Assessment and Plan - Assessment and Plan (Free Text) Assessment: 61 y/o female with PMHx of invasive ductal carcinoma of breast with metastasis to bone, CAD, osteoporosis, HTN and anxiety with left trimalleolar fracture Plan: Patient seen and evaluated Charts, labs, vitals reviewed Plan discussed with attending Dr. Arpit Munson to round on patient tomorrow and discuss OR time with OR team CT reviewed: Dislocated trimalleolar fracture appreciated Patient to keep posterior splint C/D/I and remain NWB at all times to LLE Medical and cardiac clearance obtained and in chart Will continue to follow patient while in house
[2017-08-19] MEDS: HYDROmorphone 1 mg/ml ISec IVP PRN ×4 (06:06→22:16)
[2017-08-19] MEDS: Pantoprazole 40 mg EC Tab PO SCH (06:36)
[2017-08-19 07:35] LABS: BASO # 0.04 K/mm3 (0.0-2.0); BASO % 0.4 % (0.0-3.0); EOS % 20.4 % (1.5-5.0); GRAN # 4.19 (1.4-6.5); GRAN % 43.1 % (50.0-68.0); HEMOGLOBIN 9.2 g/dL (12.0-16.0); LYMPH # 2.4 (1.2-3.4); LYMPH % 25.1 % (22.0-35.0); MEAN CORPUSCULAR HEMOGLOBIN 27.9 pg (25.0-35.0); MEAN CORPUSCULAR HGB CONC 32.1 g/dl (31.0-37.0); MEAN PLATELET VOLUME 9.1 fl (7.0-11.0); MONO # 1.1 (0.1-0.6); PLATELET COUNT 284 10^3/uL (120.0-450.0); RED CELL DISTRIBUTION WIDTH 17.8 % (11.5-14.5); WHITE BLOOD COUNT 9.7 10^3/ul (4.5-11.0)
[2017-08-19 07:49] LABS: ALBUMIN 3.7 g/dL (3.0-4.8); ALT/SGPT 21 U/L (7-56); AST/SGOT 38 U/L (14-36); BLOOD UREA NITROGEN 25 mg/dL (7-21); CALCIUM 9.5 mg/dL (8.4-10.5); GFR AFRICAN-AMERICAN > 60; GFR NON-AFRICAN AMERICAN > 60
[2017-08-19 08:21] LABS: EOSINOPHIL 15 % (0.0-3.0); LYMPHOCYTE 22 % (22.0-35.0); MONOCYTE 5 % (1.0-6.0); NEUTROPHIL 58 % (50.0-70.0)
[2017-08-19 08:22] LABS: PLATELET ESTIMATE NORMAL (NORMAL)
[2017-08-19] MEDS: Potassium Chloride 20 mEq ER Tab PO SCH (10:39)
--- NOTE | 2017-08-19 11:36 | PN ---
DATE: 08/19/2017 LOCATION: The patient in room 277, bed 1. REASON FOR CONSULTATION AND FOLLOWUP: Fractured ankle preop evaluation, risk stratification, hypertension, CA of the breast with metastasis to the bone. SUBJECTIVE: The patient lying flat in bed. There is no chest pain, no shortness of breath, no palpitations. No cardiac symptoms. PHYSICAL EXAMINATION: VITAL SIGNS: Blood pressure 125/63, respiration 20, pulse 65, temperature 99.5. HEENT: Head is normocephalic. Eyes: Pupils normal. Conjunctivae slightly pale. NECK: JVP low. Carotids equal. THORAX: AP diameter normal. CARDIOVASCULAR: S1 and S2. LUNGS: Clear. ABDOMEN: Soft. No tenderness. No organomegaly. Bowel sounds normal. EXTREMITIES: The patient has fractured ankle of left foot. LABORATORY DATA: WBC is 9.7, hemoglobin 9.2, hematocrit 28.7, platelets . Sodium 140, potassium 4.2, BUN 25, creatinine 0.9. AST 38, ALT 21, total protein 7.6, albumin 3.7. Prothrombin time on 08/15/2017 was 13.2 with INR of 1.14. DIAGNOSES: Mechanical fall due to uneven surface in the kitchen, fracture of the left malleolus, hypertension, stage IV invasive ductal carcinoma of the breast with metastasis to the bone, anemia. The patient had echo on 06/17/2017, which showed left ventricular ejection fraction of 40%, right ventricular systolic pressure of 34 mmHg suggestive of very mild pulmonary hypertension, mild mitral regurgitation, grade 1 abnormal diastolic relaxation suggestive of diastolic dysfunction. PLAN: The patient can go for surgery as moderate risk. There is no absolute contraindication for surgery. The patient on hydralazine 50 mg p.o. t.i.d., heparin 5000 units subcutaneous every 8 hours, potassium 20 mEq daily, metoprolol 50 mg b.i.d., gabapentin 300 mg p.o. t.i.d., lisinopril 10 mg daily. The patient's aspirin and Plavix put on hold for surgery already and we will continue to follow with you closely. Ignacio Crandall MD [facility] # [id number]
--- NOTE | 2017-08-19 11:44 | CP.PCM.PN ---
Subjective - Date & Time of Evaluation Date of Evaluation: 08/19/17 Time of Evaluation: 11:42 - Subjective Subjective: 61 y/o female seen at bedside this morning with attending Dr. Munson regarding left ankle fracture. Pt states that pain is well controlled at this time. She states it comes and goes and is mild-moderate in severity. States the splint is still fully intact and comfortable. Denies numbness tingling or burning to the LLE. Denies F/C/N/V/CP/SOB. Objective - Vital Signs/Intake and Output Vital Signs (last 24 hours): Temp Pulse Resp BP Pulse Ox 99.5 F 70 20 111/60 95 08/19/17 06:00 08/19/17 10:41 08/19/17 06:00 08/19/17 10:41 08/19/17 06:00 Intake and Output: 08/19/17 08/19/17 06:59 18:59 Intake Total 360 Output Total 900 Balance -540 - Medications Medications: Current Medications Diphenhydramine HCl (Benadryl) 25 mg PO Q6 PRN PRN Reason: Other Last Admin: 08/19/17 10:53 Dose: 25 mg Docusate Sodium (Colace) 100 mg PO TID [facility] Last Admin: 08/19/17 10:39 Dose: 100 mg Gabapentin (Neurontin) 300 mg PO TID [facility] PRN Reason: Protocol Last Admin: 08/19/17 10:39 Dose: 300 mg Heparin Sodium (Porcine) (Heparin) 5,000 units SC Q8 [facility] PRN Reason: Protocol Last Admin: 08/19/17 06:06 Dose: 5,000 units Hydralazine HCl (Apresoline) 50 mg PO TID [facility] Last Admin: 08/19/17 10:39 Dose: 50 mg Hydromorphone HCl (Dilaudid) 1 mg IVP Q3H PRN PRN Reason: Pain, severe (8-10) Last Admin: 08/19/17 10:41 Dose: 1 mg Hydroxyzine Pamoate (Vistaril) 25 mg PO Q8H PRN; Protocol PRN Reason: Itching / Pruritus Last Admin: 08/17/17 14:48 Dose: 25 mg Lisinopril (Zestril) 10 mg PO DAILY [facility] Last Admin: 08/19/17 10:41 Dose: 10 mg Metoprolol Tartrate (Lopressor) 50 mg PO BID [facility] Last Admin: 08/19/17 10:40 Dose: 50 mg Oxycodone HCl (Oxycodone Immediate Release Tab) 30 mg PO Q6H PRN PRN Reason: Pain, severe (8-10) Last Admin: 08/17/17 22:20 Dose: 30 mg Potassium Chloride (K-Dur 20 Meq Er Tab) 20 meq PO DAILY [facility] Last Admin: 08/19/17 10:39 Dose: 20 meq - Labs Labs: 08/19/17 07:00 08/19/17 07:00 PT 13.2 SECONDS (9.4-12.5) H 08/15/17 05:30 INR 1.14 (0.93-1.08) H 08/15/17 05:30 - Constitutional Appears: Well, Non-toxic, No Acute Distress - Extremities Exam Additional comments: Posterior splint C/D/I to left lower extremity CFT < 3 seconds to all digits Patient able to wiggle toes without difficulty - Neurological Exam Neurological Exam: Alert, Awake, Oriented x3 - Psychiatric Exam Psychiatric exam: Normal Affect, Normal Mood Assessment and Plan - Assessment and Plan (Free Text) Assessment: 61 y/o female with PMHx of invasive ductal carcinoma of breast with metastasis to bone, CAD, osteoporosis, HTN and anxiety with left ankle displaced trimalleolar fracture Plan: Patient seen and evaluated with attending Dr. Munson CT reviewed: Dislocated trimalleolar fracture appreciated Patient to keep posterior splint C/D/I and remain NWB at all times to LLE Medical and cardiac clearance obtained and in chart Pt to go to OR for L ankle ORIF tomorrow at 7:30AM Pt to be NPO after midnight; Heparin held prior to surgery PT eval placed, pt to remain NWB with use of walker Post-op patient to be D/C to sub acute rehab Will continue to follow patient while in house
--- NOTE | 2017-08-19 11:45 | CP.PCM.PN ---
<JuanbashirMohamud phillips - Last Filed: 08/19/17 11:45> Subjective - Date & Time of Evaluation Date of Evaluation: 08/19/17 Time of Evaluation: 11:43 - Subjective Subjective: Patient seen and examined at bedside. Complaining of itchiness most notable on the face and arms. She states she has been itching to the point of lacerating the skin. She has requested benadryl to stop the itching. No other complaints at this time. For OR tomorrow. Objective - Vital Signs/Intake and Output Vital Signs (last 24 hours): Temp Pulse Resp BP Pulse Ox 99.5 F 70 20 111/60 95 08/19/17 06:00 08/19/17 10:41 08/19/17 06:00 08/19/17 10:41 08/19/17 06:00 Intake and Output: 08/19/17 08/19/17 06:59 18:59 Intake Total 360 Output Total 900 Balance -540 - Medications Medications: Current Medications Diphenhydramine HCl (Benadryl) 25 mg PO Q6 PRN PRN Reason: Other Last Admin: 08/19/17 10:53 Dose: 25 mg Docusate Sodium (Colace) 100 mg PO TID [facility] Last Admin: 08/19/17 10:39 Dose: 100 mg Gabapentin (Neurontin) 300 mg PO TID [facility] PRN Reason: Protocol Last Admin: 08/19/17 10:39 Dose: 300 mg Heparin Sodium (Porcine) (Heparin) 5,000 units SC Q8 [facility] PRN Reason: Protocol Last Admin: 08/19/17 06:06 Dose: 5,000 units Hydralazine HCl (Apresoline) 50 mg PO TID [facility] Last Admin: 08/19/17 10:39 Dose: 50 mg Hydromorphone HCl (Dilaudid) 1 mg IVP Q3H PRN PRN Reason: Pain, severe (8-10) Last Admin: 08/19/17 10:41 Dose: 1 mg Hydroxyzine Pamoate (Vistaril) 25 mg PO Q8H PRN; Protocol PRN Reason: Itching / Pruritus Last Admin: 08/17/17 14:48 Dose: 25 mg Lisinopril (Zestril) 10 mg PO DAILY [facility] Last Admin: 08/19/17 10:41 Dose: 10 mg Metoprolol Tartrate (Lopressor) 50 mg PO BID [facility] Last Admin: 08/19/17 10:40 Dose: 50 mg Oxycodone HCl (Oxycodone Immediate Release Tab) 30 mg PO Q6H PRN PRN Reason: Pain, severe (8-10) Last Admin: 08/17/17 22:20 Dose: 30 mg Potassium Chloride (K-Dur 20 Meq Er Tab) 20 meq PO DAILY [facility] Last Admin: 08/19/17 10:39 Dose: 20 meq - Labs Labs: 08/19/17 07:00 08/19/17 07:00 PT 13.2 SECONDS (9.4-12.5) H 08/15/17 05:30 INR 1.14 (0.93-1.08) H 08/15/17 05:30 - Constitutional Appears: Well - Head Exam Head Exam: ATRAUMATIC, NORMAL INSPECTION, NORMOCEPHALIC - Eye Exam Eye Exam: EOMI, Normal appearance, PERRL Pupil Exam: NORMAL ACCOMODATION, PERRL - ENT Exam ENT Exam: Mucous Membranes Moist, Normal Exam - Neck Exam Neck Exam: Full ROM, Normal Inspection. absent: Lymphadenopathy - Respiratory Exam Respiratory Exam: Clear to Ausculation Bilateral, NORMAL BREATHING PATTERN - Cardiovascular Exam Cardiovascular Exam: REGULAR RHYTHM, +S1, +S2. absent: Murmur - GI/Abdominal Exam GI & Abdominal Exam: Soft, Normal Bowel Sounds. absent: Tenderness - Extremities Exam Extremities Exam: Full ROM, Normal Capillary Refill, Normal Inspection. absent : Joint Swelling, Pedal Edema - Back Exam Back Exam: NORMAL INSPECTION - Neurological Exam Neurological Exam: Alert, Awake, CN II-XII Intact, Normal Gait, Oriented x3 - Psychiatric Exam Psychiatric exam: Normal Affect, Normal Mood - Skin Skin Exam: Dry, Intact, Normal Color, Warm Assessment and Plan (1) Trimalleolar fracture Assessment & Plan: For OR Tomorrow Podiatry (Munson) NPO PM Hold ASA and Plavix, Hold heparin at midnight Cardio cleared. Patient at moderate risk Oxycodone 30 PO Q6H PRN Dilaudid 1mg IV Q5H PRN Status: Acute (2) Congestive heart failure Assessment & Plan: EF 40 on Echo Questionable if patient needs Plavix. Will follow up with cardio Cardio (Sandu) Status: Chronic (3) Anemia Assessment & Plan: patient was anemic @ 7.3 on admission. Transfused 2 units, H/H stable Status: Acute (4) Breast cancer Assessment & Plan: Sees Dr. Vicente as outpatient Oxycodone 30 Q6H PRN Status: Chronic (5) Pruritus Assessment & Plan: Complaining of itchiness on face and arms Benadryl 25 PO Q6 Status: Chronic (6) HTN (hypertension) Assessment & Plan: Hydralazine 50 PO QD Lisinopril 10 PO QD Lopressor 50 PO BID Status: Chronic (7) Prophylactic measure Assessment & Plan: Hold heparin for surgery SCD contraindicated for fracture No GI PPX indicated at this time Status: Acute <Sharan Ratliff - Last Filed: 08/19/17 16:34> Objective - Vital Signs/Intake and Output Vital Signs (last 24 hours): Temp Pulse Resp BP Pulse Ox 98.5 F 68 20 130/66 95 08/19/17 12:00 08/19/17 14:03 08/19/17 12:00 08/19/17 14:03 08/19/17 06:00 Intake and Output: 08/19/17 08/19/17 06:59 18:59 Intake Total 360 540 Output Total 900 1000 Balance -540 -460 - Medications Medications: Current Medications Diphenhydramine HCl (Benadryl) 25 mg PO Q6 PRN PRN Reason: Other Last Admin: 08/19/17 10:53 Dose: 25 mg Docusate Sodium (Colace) 100 mg PO TID [facility] Last Admin: 08/19/17 14:02 Dose: 100 mg Gabapentin (Neurontin) 300 mg PO TID [facility] PRN Reason: Protocol Last Admin: 08/19/17 14:02 Dose: 300 mg Heparin Sodium (Porcine) (Heparin) 5,000 units SC Q8 [facility] PRN Reason: Protocol Last Admin: 08/19/17 14:12 Dose: Not Given Hydralazine HCl (Apresoline) 50 mg PO TID [facility] Last Admin: 08/19/17 14:03 Dose: 50 mg Hydromorphone HCl (Dilaudid) 1 mg IVP Q3H PRN PRN Reason: Pain, severe (8-10) Last Admin: 08/19/17 10:41 Dose: 1 mg Hydroxyzine Pamoate (Vistaril) 25 mg PO Q8H PRN; Protocol PRN Reason: Itching / Pruritus Last Admin: 08/17/17 14:48 Dose: 25 mg Lisinopril (Zestril) 10 mg PO DAILY [facility] Last Admin: 08/19/17 10:41 Dose: 10 mg Metoprolol Tartrate (Lopressor) 50 mg PO BID [facility] Last Admin: 08/19/17 10:40 Dose: 50 mg Oxycodone HCl (Oxycodone Immediate Release Tab) 30 mg PO Q6H PRN PRN Reason: Pain, severe (8-10) Last Admin: 08/19/17 14:17 Dose: 30 mg Potassium Chloride (K-Dur 20 Meq Er Tab) 20 meq PO DAILY [facility] Last Admin: 08/19/17 10:39 Dose: 20 meq - Labs Labs: 08/19/17 07:00 08/19/17 07:00 PT 13.2 SECONDS (9.4-12.5) H 08/15/17 05:30 INR 1.14 (0.93-1.08) H 08/15/17 05:30 Attending/Attestation - Attestation I have personally seen and examined this patient.: Yes I have fully participated in the care of the patient.: Yes I have reviewed all pertinent clinical information, including history, physical exam and plan: Yes Notes (Text): I have seen and examined the patient at bedside. Agree with the above note with the following additions/ exceptions: Briefly this is 61 year old female with history of metastatic breast cancer, s/p 4 weeks of IV antibiotic for gram positive bacteremia (june 2017), CHF with both systolic and diastolic dysfunction (last Echo showed EF 40% and diastolic CHF). She was admitted with mechanical fall, found to have distal tibial, distal fibula and medial malleolar fracture. Patient CHF is well compensated with current medical therapy. Patient is cleared for surgery by cardiology. She is currently on Posterior splint. Continue NWB. MRI reviewed. Podiatry is planning for surgery tomorrow. Discussed with Dr Munson. Hb improved after 2 units of PRBC. Continue to hold asa and plavix. Start benadryl prn for pruritis. Upon discharge patient will follow up with Dr Crooks.
[2017-08-19] MEDS: oxyCODONE 30 mg Immediate Release Tab PO PRN (14:17)
[2017-08-20] MEDS: HYDROmorphone 1 mg/ml ISec IVP PRN (06:00)
[2017-08-20] MEDS ORDERED: Lidocaine 1% Inj (20ml) ONE ×2 (07:19→07:30)
[2017-08-20] MEDS ORDERED: Bupivacaine 0.5% Inj(30mL) ONE ×2 (07:19→07:34)
[2017-08-20] MEDS ORDERED: Midazolam 2 MG/2 ML VIAL ONE (07:30)
[2017-08-20] MEDS ORDERED: Propofol 10 mg/ml Inj (20 ML) ONE (07:30)
[2017-08-20] MEDS ORDERED: Lidocaine 2 GM Vial 2 GM/50 ML VIAL IV ONE (07:34)
[2017-08-20 07:35] LABS: BASO # 0.03 K/mm3 (0.0-2.0); BASO % 0.3 % (0.0-3.0); EOS # 2.3 (0.0-0.7); EOS % 22.5 % (1.5-5.0); GRAN # 4.67 (1.4-6.5); GRAN % 45.8 % (50.0-68.0); HEMOGLOBIN 9.1 g/dL (12.0-16.0); LYMPH # 1.9 (1.2-3.4); LYMPH % 18.4 % (22.0-35.0); MEAN CELL VOLUME 87.1 fl (80.0-105.0); MEAN CORPUSCULAR HGB CONC 32.2 g/dl (31.0-37.0); MONO # 1.3 (0.1-0.6); RBC 3.25 10^6/uL (3.5-6.1); RED CELL DISTRIBUTION WIDTH 17.4 % (11.5-14.5); WHITE BLOOD COUNT 10.2 10^3/ul (4.5-11.0)
[2017-08-20 07:53] LABS: ALBUMIN 3.8 g/dL (3.0-4.8); ALT/SGPT 22 U/L (7-56); AST/SGOT 36 U/L (14-36); BLOOD UREA NITROGEN 22 mg/dL (7-21); CALCIUM 9.7 mg/dL (8.4-10.5); GFR AFRICAN-AMERICAN > 60; GFR NON-AFRICAN AMERICAN > 60
[2017-08-20] MEDS ORDERED: ePHEDrine 50 mg/ml Inj ONE (08:13)
[2017-08-20] MEDS: Potassium Chloride 20 mEq ER Tab PO SCH (09:38)
--- NOTE | 2017-08-20 10:45 | CP.PCM.PN ---
<Mohamud Novoa - Last Filed: 08/20/17 10:41> Subjective - Date & Time of Evaluation Date of Evaluation: 08/20/17 Time of Evaluation: 10:41 - Subjective Subjective: Patient seen and examined at bedside. Doing well with no complaints at this time. OR today. All of her questions were answered concerning the procedure. Objective - Vital Signs/Intake and Output Vital Signs (last 24 hours): Temp Pulse Resp BP Pulse Ox 98.8 F 69 20 133/63 95 08/20/17 08:22 08/20/17 08:22 08/20/17 08:22 08/20/17 08:22 08/20/17 08:22 Intake and Output: 08/20/17 08/20/17 06:59 18:59 Output Total 1000 Balance -1000 - Medications Medications: Current Medications Diphenhydramine HCl (Benadryl) 25 mg PO Q6 PRN PRN Reason: Other Last Admin: 08/20/17 01:33 Dose: 25 mg Docusate Sodium (Colace) 100 mg PO TID [facility] Last Admin: 08/19/17 17:52 Dose: 100 mg Gabapentin (Neurontin) 300 mg PO TID [facility] PRN Reason: Protocol Last Admin: 08/19/17 17:53 Dose: 300 mg Heparin Sodium (Porcine) (Heparin) 5,000 units SC Q8 [facility] PRN Reason: Protocol Last Admin: 08/20/17 06:05 Dose: Not Given Hydralazine HCl (Apresoline) 50 mg PO TID [facility] Last Admin: 08/19/17 17:53 Dose: 50 mg Hydromorphone HCl (Dilaudid) 1 mg IVP Q3H PRN PRN Reason: Pain, severe (8-10) Last Admin: 08/20/17 06:00 Dose: 1 mg Hydroxyzine Pamoate (Vistaril) 25 mg PO Q8H PRN; Protocol PRN Reason: Itching / Pruritus Last Admin: 08/17/17 14:48 Dose: 25 mg Lisinopril (Zestril) 10 mg PO DAILY [facility] Last Admin: 08/19/17 10:41 Dose: 10 mg Metoprolol Tartrate (Lopressor) 50 mg PO BID [facility] Last Admin: 08/19/17 17:52 Dose: 50 mg Oxycodone HCl (Oxycodone Immediate Release Tab) 30 mg PO Q6H PRN PRN Reason: Pain, severe (8-10) Last Admin: 08/19/17 14:17 Dose: 30 mg Potassium Chloride (K-Dur 20 Meq Er Tab) 20 meq PO DAILY [facility] Last Admin: 08/19/17 10:39 Dose: 20 meq - Labs Labs: 08/20/17 07:00 08/20/17 07:00 PT 13.2 SECONDS (9.4-12.5) H 08/15/17 05:30 INR 1.14 (0.93-1.08) H 08/15/17 05:30 - Constitutional Appears: Well - Head Exam Head Exam: ATRAUMATIC, NORMAL INSPECTION, NORMOCEPHALIC - Eye Exam Eye Exam: EOMI, Normal appearance, PERRL Pupil Exam: NORMAL ACCOMODATION, PERRL - ENT Exam ENT Exam: Mucous Membranes Moist, Normal Exam - Neck Exam Neck Exam: Full ROM, Normal Inspection. absent: Lymphadenopathy - Respiratory Exam Respiratory Exam: Clear to Ausculation Bilateral, NORMAL BREATHING PATTERN - Cardiovascular Exam Cardiovascular Exam: REGULAR RHYTHM, +S1, +S2. absent: Murmur - GI/Abdominal Exam GI & Abdominal Exam: Soft, Normal Bowel Sounds. absent: Tenderness - Extremities Exam Extremities Exam: Full ROM, Normal Capillary Refill, Normal Inspection, Tenderness (tenderness around L. ankls with swelling). absent: Joint Swelling, Pedal Edema - Back Exam Back Exam: NORMAL INSPECTION - Neurological Exam Neurological Exam: Alert, Awake, CN II-XII Intact, Normal Gait, Oriented x3 - Psychiatric Exam Psychiatric exam: Normal Affect, Normal Mood - Skin Skin Exam: Dry, Intact, Normal Color, Warm Assessment and Plan - Assessment and Plan (Free Text) Assessment: (1) Trimalleolar fracture Assessment & Plan: For OR Today Podiatry (Munson) Oxycodone 30 PO Q6H PRN Dilaudid 1mg IV Q5H PRN Status: Acute (2) Congestive heart failure Assessment & Plan: EF 40 on Echo Questionable if patient needs Plavix. Will follow up with cardio Cardio (Sandu) Status: Chronic (3) Anemia Assessment & Plan: patient was anemic @ 7.3 on admission. Transfused 2 units, H/H stable Status: Acute (4) Breast cancer Assessment & Plan: Sees Dr. Vicente as outpatient Oxycodone 30 Q6H PRN Status: Chronic (5) Pruritus Assessment & Plan: Complaining of itchiness on face and arms Benadryl 25 PO Q6 Status: Chronic (6) HTN (hypertension) Assessment & Plan: Hydralazine 50 PO QD Lisinopril 10 PO QD Lopressor 50 PO BID Status: Chronic (7) Prophylactic measure Assessment & Plan: Hold heparin for surgery SCD contraindicated for fracture No GI PPX indicated at this time Will follow up PT reccs for probable MARYJANE Status: Acute <Sharan Ratliff B - Last Filed: 08/20/17 12:02> Objective - Vital Signs/Intake and Output Vital Signs (last 24 hours): Temp Pulse Resp BP Pulse Ox 98.8 F 69 20 133/63 95 08/20/17 08:22 08/20/17 08:22 08/20/17 08:22 08/20/17 08:22 08/20/17 08:22 Intake and Output: 08/20/17 08/20/17 06:59 18:59 Output Total 1000 Balance -1000 - Medications Medications: Current Medications Diphenhydramine HCl (Benadryl) 25 mg PO Q6 PRN PRN Reason: Other Last Admin: 08/20/17 01:33 Dose: 25 mg Docusate Sodium (Colace) 100 mg PO TID [facility] Last Admin: 08/19/17 17:52 Dose: 100 mg Gabapentin (Neurontin) 300 mg PO TID [facility] PRN Reason: Protocol Last Admin: 08/19/17 17:53 Dose: 300 mg Heparin Sodium (Porcine) (Heparin) 5,000 units SC Q8 [facility] PRN Reason: Protocol Last Admin: 08/20/17 06:05 Dose: Not Given Hydralazine HCl (Apresoline) 50 mg PO TID [facility] Last Admin: 08/19/17 17:53 Dose: 50 mg Hydromorphone HCl (Dilaudid) 1 mg IVP Q3H PRN PRN Reason: Pain, severe (8-10) Last Admin: 08/20/17 06:00 Dose: 1 mg Hydromorphone HCl (Dilaudid) 0.5 mg IVP Q15M PRN PRN Reason: Pain, moderate (4-7) Stop: 08/20/17 13:48 Hydroxyzine Pamoate (Vistaril) 25 mg PO Q8H PRN; Protocol PRN Reason: Itching / Pruritus Last Admin: 08/17/17 14:48 Dose: 25 mg Lactated Ringer's (Lactated Ringer's) 1,000 mls @ 75 mls/hr IV .[id number] [facility] Stop: 08/20/17 14:01 Lisinopril (Zestril) 10 mg PO DAILY [facility] Last Admin: 08/19/17 10:41 Dose: 10 mg Metoclopramide HCl (Reglan) 10 mg IV ONCE PRN PRN Reason: Nausea/Vomiting Metoprolol Tartrate (Lopressor) 50 mg PO BID [facility] Last Admin: 08/19/17 17:52 Dose: 50 mg Oxycodone HCl (Oxycodone Immediate Release Tab) 30 mg PO Q6H PRN PRN Reason: Pain, severe (8-10) Last Admin: 08/19/17 14:17 Dose: 30 mg Potassium Chloride (K-Dur 20 Meq Er Tab) 20 meq PO DAILY [facility] Last Admin: 08/19/17 10:39 Dose: 20 meq - Labs Labs: 08/20/17 07:00 08/20/17 07:00 PT 13.2 SECONDS (9.4-12.5) H 08/15/17 05:30 INR 1.14 (0.93-1.08) H 08/15/17 05:30 Attending/Attestation - Attestation I have personally seen and examined this patient.: Yes I have fully participated in the care of the patient.: Yes I have reviewed all pertinent clinical information, including history, physical exam and plan: Yes Notes (Text): I have seen and examined the patient at bedside. Agree with the above note with the following additions/ exceptions: Briefly this is 61 year old female with history of metastatic breast cancer, s/p 4 weeks of IV antibiotic for gram positive bacteremia (june 2017), CHF with both systolic and diastolic dysfunction (last Echo showed EF 40% and diastolic CHF). She was admitted with mechanical fall, found to have distal tibial, distal fibula and medial malleolar fracture. She is currently on Posterior splint. Continue NWB. Patient is going to OR today. Hb improved after 2 units of PRBC. Continue to hold asa and plavix. Continue benadryl prn for pruritis. Patient CHF is well compensated with current medical therapy Upon discharge patient will follow up with Dr Crooks.
--- NOTE | 2017-08-20 11:40 | PCM.SURG1 ---
Surgeon's Initial Post Op Note - Surgeon's Notes Surgeon: Dr. Munson Sql Dba: Dr. Scottie Boss Type of Anesthesia: General Endo, Block Regional Anesthesia Administered By: Dr. Teague Pre-Operative Diagnosis: Left ankle trimalleolar displaced fracture Operative Findings: see dictation Post-Operative Diagnosis: Left ankle trimalleolar displaced fracture and syndesmotic injury Operation Performed: Left ankle open reduction internal fixation of trimalleolar fracture and syndesmotic injury Specimen/Specimens Removed: none Estimated Blood Loss: EBL {In ML}: 50 Blood Products Given: Whole Blood (1 unit) Drains Used: No Drains Post-Op Condition: Good Date of Surgery/Procedure: 08/20/17 Time of Surgery/Procedure: 11:39
[2017-08-20] MEDS ORDERED: HYDROmorphone 0.5 mg/0.5 ml ISec IVP PRN (11:47)
[2017-08-20] MEDS ORDERED: HYDROmorphone 0.5 mg/0.5 ml ISec IVP ONE ×2 (11:50→12:05)
[2017-08-20] MEDS ORDERED: HYDROmorphone 0.5 mg/0.5 ml ISec ONE ×2 (11:51→12:06)
--- NOTE | 2017-08-20 11:56 | PCM.ANESB2 ---
Popliteal Nerve Block - Popliteal Nerve Block Date of Procedure: 08/20/17 Anesthesiologist: Ho Pre-Procedure Diagnosis: left ankle fracture Post-Procedure Diagnosis: same Procedure Performed: Popliteal Nerve Block Left - Procedure Popliteal Nerve Block: This procedure was explained to the patient that it is for post-operative pain management. Consent was obtained after a thorough discussion with the patient regarding the benefits and possible complications of local anesthetic block of the sciatic nerve at the popliteal level. The patient was brought to the operating room and standard monitors are applied. Time-out was held with the circulating nurse to confirm the correct surgery and the appropriate block. After applying oxygen by nasal cannula and administering IV Sedation, patient's operative leg was gently raised and supported and the groove in between the biceps femoris and vastus lateralis muscles was carefully palpated. The skin approximately 8cm above the popliteal crease was then marked. The ultrasound transducer was then applied to the posterior thigh approximately 8cm above the popliteal crease in the transverse plane and the sciatic nerve before its division was visualized lateral to the popliteal artery and in between the bicep femoris and semimembranosus/semitendinosus muscles. After identification, the lateral portion of the thigh was prepped with Betadine solution three times and Lidocaine 1% was injected subcutaneously for topical anesthesia. At this point, a # 21 gauge Stimuplex insulated 4 inch needle was inserted into pre-marked area and advanced in a perpendicular direction. The needle was inserted above the ultrasound transducer in-plane towards the sciatic nerve in a [id number] direction. Needle advancement was performed carefully under direct ultrasound visualization. Nerve stimulator was used and dorsiflexion of the _left____ foot was elicited at a current of _0.4____ MA. After repeated negative aspiration, _20____cc of _0.5____ % _bupivicaine was injected and this was flowed with ___10___ cc of __2____% __lidocaine . Under ultrasound guidance the local anesthetics were observed surrounding sciatic nerve . The needle was removed intact and sterile dressing was applied. The patient tolerated the popliteal nerve block well with stable vital signs and was subsequently prepared for the surgery.
[2017-08-20] MEDS ORDERED: Lactated Ringer's 1,000 ML IV SCH (12:00)
--- NOTE | 2017-08-20 12:53 | RAD ---
PROCEDURE: Fluoroscopy up to 1 hour HISTORY: ORIF LT ANKLE COMPARISON: TECHNIQUE: Fluoroscopy was provided in the operating room. 39.6 seconds of fluoro time. 1.59 mGy cumulative dose. 3 images were submitted FINDINGS: The study shows internal fixation of a bimalleolar fracture. IMPRESSION: As above
[2017-08-20] MEDS: oxyCODONE 30 mg Immediate Release Tab PO PRN ×2 (14:31→23:39)
--- NOTE | 2017-08-20 16:44 | PN ---
DATE: 08/20/2017 REASON FOR CONSULTATION: Preoperative evaluation and risk stratification, fracture of left ankle, CA breast metastasis to the bone. SUBJECTIVE: Patient denies any chest pain, shortness of breath or any palpitation. OBJECTIVE: GENERAL: Not in apparent distress, n.p.o. for surgery today. VITAL SIGNS: Temperature afebrile, heart rate 69, blood pressure 133/63. HEENT: PERRLA. Extraocular muscle intact. NECK: Supple. No carotid bruit or thyromegaly. CHEST: Clear to auscultation. HEART: S1 and S2 regular. ABDOMEN: Soft. EXTREMITIES: Clubbing and cyanosis negative. LABORATORY DATA: Blood workup as follows: WBC 10.1, hemoglobin 9.4, hematocrit 28.3, platelet count 288. Chemistry shows sodium 140, potassium 4.2, chloride 104, carbon dioxide 24, anion gap of 15, BUN 22, creatinine 0.9. IMPRESSION: Status post fall, status post fracture, left tibial displaced for OR today, cancer of the breast with metastasis, mechanical fall. The patient had a last echo on 06/17/2017, ejection fraction 40%, decreased right ventricular function, right ventricular systolic pressure at 34, mild mitral regurgitation. RECOMMENDATIONS: The patient is okay to go for surgery with moderate underlying comorbidity. No absolute contraindication. We will follow with you. Continue perioperative beta-deandre. Hemodynamically stable. Thank you, Dr. Ratliff, for providing us the opportunity in taking care of the patient, Denia Strauss. We will follow with you. Postop, we will follow with the lab, magnesium and phosphorus in the morning. Ignacio Perry MD
[2017-08-20] MEDS: HYDROmorphone 0.5 mg/0.5 ml ISec IVP PRN ×2 (16:54→20:50)
[2017-08-21] MEDS: HYDROmorphone 0.5 mg/0.5 ml ISec IVP PRN ×5 (01:32→23:08)
[2017-08-21 07:06] LABS: BASO # 0.02 K/mm3 (0.0-2.0); BASO % 0.2 % (0.0-3.0); EOS # 0.5 (0.0-0.7); EOS % 4.9 % (1.5-5.0); GRAN # 5.57 (1.4-6.5); GRAN % 56.7 % (50.0-68.0); HEMOGLOBIN 9.6 g/dL (12.0-16.0); LYMPH # 1.9 (1.2-3.4); MEAN CELL VOLUME 86.6 fl (80.0-105.0); MEAN CORPUSCULAR HGB CONC 32.3 g/dl (31.0-37.0); MEAN PLATELET VOLUME 8.7 fl (7.0-11.0); MONO # 1.9 (0.1-0.6); MONO % 19.2 % (1.0-6.0); RBC 3.43 10^6/uL (3.5-6.1); RED CELL DISTRIBUTION WIDTH 17.3 % (11.5-14.5); WHITE BLOOD COUNT 9.8 10^3/ul (4.5-11.0)
[2017-08-21 07:46] LABS: ALBUMIN 3.6 g/dL (3.0-4.8); ALT/SGPT 17 U/L (7-56); AST/SGOT 35 U/L (14-36); BLOOD UREA NITROGEN 13 mg/dL (7-21); CALCIUM 9.2 mg/dL (8.4-10.5); GFR AFRICAN-AMERICAN > 60; GFR NON-AFRICAN AMERICAN > 60
[2017-08-21] MEDS: oxyCODONE 30 mg Immediate Release Tab PO PRN ×3 (07:59→20:09)
--- NOTE | 2017-08-21 10:19 | PCM.OP ---
Operative Report - Operative Report Date of Surgery/Procedure: 08/20/17 Time of Surgery/Procedure: 09:00 Surgeon: Dr. Costa Munson Manufacturing Project Engineer: Dr. Escudero, PGY-3, Dr. Rubin, PGY-1 Anesthesia/Sedation: General Pre-Operative Diagnosis: Left ankle trimalleolar fracture Post-Operative Diagnosis: Left ankle trimalleolar fracture and sundesmotic injury Indication for Surgery: Patient is a 61 y/o female with the aforementioned diagnosis. Patient suffered a traumatic ankle injury which was confirmed by diagnostic imaging. Patient has been hospitalized at [facility] since the injury and seeks surgical intervention at this time. All alternatives , benefits complications and risks to surgical procedure were explained to the patietn at length. Patient verbalized understanding and wished to proceed. All questions were addressed and answered. No guaruntees were given nor implied. The consent was signed and NPO status confirmed prior to bringing the patient to the OR. Patient's oncologist and booster pump oiler cleared patient for surgery prior to the case. Operative Findings: Patient was brought into the operating room and placed on the operating room table in a supine position. After induction of general anesthesia and a popliteal block, a pneumatic thigh tourniquet was applied to the patient's left thigh. The LLE was then prepped and draped in the normal sterile manner and the procedure began. Procedure/Operation Description: Procedure: Left ankle open reduction and internal fixation of trimalleolar ankle fracture and syndesmotic injury. Attention was directed to the lateral aspect of the patient's left ankle where a linear incision was made with a 15 blade overlying the distal fibula and extending just anterior and distal the tip of the lateral malleolus. The incision was deepened through the superficial and subcutaneous tissues utilizing sharp and blunt dissection. Care was taken to retract all vital neurovascular and tendinous structures throughout the duration of the procedure. All superficial vessels were cauterized using electrocautery. Dissection was then carried down to the periosteum overlying the distal fibula. A 15 blade was utilized to make a linear incision through the periosteum. The periosteum was then freed from the fibula with a figueroa elevator and 15 blade. At this time the fracture site in the fibula could be visualized. It was noted that the proximal portion of the fracture was comminuted with a butterfly fragment. Any impeeding soft tissue debris and hematoma was then cleared from the fracture site with a freer elevator and 15 blade to facilitate reduction. In addition, a Tillaux fracutre from the anterolateral tibia was noted. A 15 blade was utlized to free the periosteum from this fracture fragment and it was temporarily stabilized with a 0.045 K-wire so that it did not hinder the fibular reduction. Attention was directed back to the fibular fracture where two bone reducion forceps were utilized to reduce the fibular fracture and temporarily hold it in reduction. A 0.065 K-wire was then inserted across the fracture site to further temporarily stabilize the fracture. Interoperative fluoroscopy was then utilized to confirm appropriate reduction of the fracture with anatomic samaritan of the fibular lenght and ankle joint congruency. Due to the patient's poor bone quality and comminuted nature of the fracture, the decision was made to not use an interfragmentary screw across the fracture. A Synthes 5-hole distal fibula locking plate was then applied to the lateral aspect of the fibula and temporarily held in place with K-wires. Interoperative fluoroscopy was utilized to confirm appropriate positioning of the plate. The plate was the secured to the fibula first with one 2.7mm fully threaded non-locking screw distal to the fracture, and one 2.7mm fully threaded non-locking screw proximal to the fracture. All screws were inserted utilizing standard AO technique and tightened to two finger tightness. Interoperative fluorscopy was then utilized to confirm appropriate positioning of the plate and screw. The plate was then further secured to the fibula with two 2.7mm fully threaded locking screws and one 3.5mm fully threaded non-locking proximally, and five 2.7mm fully threaded locking screws distally. All screws were inserted utilizing standard AO technique and tightened to two finger tightness. Interoperative fluorscopy was again utlized, and it was noted that all internal fixation was in excellent position with anatomic reduction of the fracture site. The bone reduction forceps and temporary K-wires were then removed from the surgical field. Attention was then directed back to the Tilaux fracture, and the temprary K-wire was removed. The fracture was then reduced manually and temporarliy held with the same K-wire. Interoperative fluoroscopy then confirmed appropriate reduction. Next, a Synthes 2.4mm fully threaded screw was inserted across the fracture site utilizing standard AO technque. The temporary K-wire was removed and the screw was tightened to two- finger tightness. Interoperative fluoroscopy confimred appropriate fixation of the fracutre with anatomic reduction. Under interoperative fluorscopy, the distal tibiofibular syndesmosis was stressed and it was noted to be unstable. Utilizing an oblong, syndesmotic hole in the previolsy inserted fibular plate, a guide wire for a 4.0mm cannulated drill was inserted from lateral to medial, angle 30 degrees anterior to simulate the axis of the syndesmosis. The guide wire was inserted under intraoperative fluoroscopy to ensure appropriate positioning. Next, the drill for a 4.0mm cannulated screw was inserted over the guidewire and drilled under intraoperative fluorscopy. The drill and guidwire were then removed and the approriately size 4.0mm solid fully threaed Synthes screw was inserted and tightened to two finger tightness. Attention was then directed to the medial ankle, where a curvilinear incision was made with a 15 blade overlying the distal anterior medial malleolus. The incision was deepened through the superficial and subcutaneous tissues utilizing sharp and blunt dissection. Care was taken to retract all vital neurovascular and tendinous structures throughout the duration of the procedure. Dissection was carried down to the periosteum overlying the medial malleolus and an incsion was made with a 15 blade. At this time the fracture site could be identified and was freed of all soft tissue debris with a 15 blade and pickups. Next, the fracutre was manually reduced and a guidwire for a 4.0mm cannulated screw was inserted across the fracture site. Intraoperative fluoroscopy was utilized to confirm appropriate positioning of the guidewire. The drill was then used to drill over the guidewire and a Synthes 4.0mm partially threaded cannulated screw was inserted utilizing standard AO technique and tightened to two finger tightness. The guide wire was then removed from the surgical field. Intraoperative fluoroscopy was then used to confim appopriate positioning of all internal hardware, anatomic reducation of all fracutre sites, samaritan of fiublar lenght and congruency of the ankle mortise. The surgical areas were then flushed with copious amounts of sterile normal saline. The periosteal and capsular tissues were reapproximated with 2-0 vicryl suture. The subcutaneous tissues were reapproximated with 4-0 vicryl suture. The skin was reapproximated with 4-0 prolene suture. Intraoperative injections consisted of 10ml of 0.5% marcaine plain. Post-operative bandages consisted of betadind soaked adaptic, DSD, cling, Webril, posterior splint and BRIANNA bandages. Estimated Blood Loss: 50ml Blood Replaced: 1 unit blood Complications: None Discharge & Condition: Patient tolerated procedure and anesthesia well with no apparent complications or complaints. Patient was escorted from the OR to PACU with vital signs stable and neurovascular status intact. Patient will return to hospital floors, to follow up with Dr. Munson on an outpatient basis.
[2017-08-21] MEDS: Potassium Chloride 20 mEq ER Tab PO SCH (10:25)
--- NOTE | 2017-08-21 11:52 | CP.PCM.PN ---
Subjective - Date & Time of Evaluation Date of Evaluation: 08/21/17 Time of Evaluation: 11:49 - Subjective Subjective: Podiatry Progress Note 61F seen at bedside this AM one day s/p L trimalleolar ORIF. Patient is AAO x 3 and NAD at time of visit. States that her pain is well controlled at this time. Denies any acute overnight events or any new pedal complaints at this time. States that physical therapy came to work with her this morning. Denies any recent N/V/F/C/CP/SOB/D/posterior calf pain Objective - Vital Signs/Intake and Output Vital Signs (last 24 hours): Temp Pulse Resp BP Pulse Ox 99.7 F H 75 20 160/80 H 96 08/21/17 08:25 08/21/17 10:25 08/21/17 08:25 08/21/17 10:25 08/21/17 08:25 Intake and Output: 08/21/17 08/21/17 06:59 18:59 Intake Total 730 Output Total 1600 Balance -870 - Medications Medications: Current Medications Diphenhydramine HCl (Benadryl) 25 mg PO Q6 PRN PRN Reason: Other Last Admin: 08/21/17 07:59 Dose: 25 mg Docusate Sodium (Colace) 100 mg PO TID [facility] Last Admin: 08/21/17 10:25 Dose: 100 mg Gabapentin (Neurontin) 300 mg PO TID [facility] PRN Reason: Protocol Last Admin: 08/21/17 10:26 Dose: 300 mg Heparin Sodium (Porcine) (Heparin) 5,000 units SC Q8 [facility] PRN Reason: Protocol Last Admin: 08/21/17 05:06 Dose: 5,000 units Hydralazine HCl (Apresoline) 50 mg PO TID [facility] Last Admin: 08/21/17 10:25 Dose: 50 mg Hydromorphone HCl (Dilaudid) 0.5 mg IVP Q3H PRN PRN Reason: Pain, severe (8-10) Last Admin: 08/21/17 11:05 Dose: 0.5 mg Lisinopril (Zestril) 10 mg PO DAILY [facility] Last Admin: 08/21/17 10:25 Dose: 10 mg Metoprolol Tartrate (Lopressor) 50 mg PO BID [facility] Last Admin: 08/21/17 10:25 Dose: 50 mg Oxycodone HCl (Oxycodone Immediate Release Tab) 30 mg PO Q6H PRN PRN Reason: Pain, severe (8-10) Last Admin: 08/21/17 07:59 Dose: 30 mg Potassium Chloride (K-Dur 20 Meq Er Tab) 20 meq PO DAILY [facility] Last Admin: 08/21/17 10:25 Dose: 20 meq - Labs Labs: 08/21/17 06:30 08/21/17 06:30 PT 13.2 SECONDS (9.4-12.5) H 08/15/17 05:30 INR 1.14 (0.93-1.08) H 08/15/17 05:30 - Constitutional Appears: Well, Non-toxic, No Acute Distress - Head Exam Head Exam: ATRAUMATIC, NORMOCEPHALIC - Extremities Exam Additional comments: LLE focused exam Cast to LLE noted to be C/D/I Toes are warm to touch with CFT < 3 seconds to all digits Patient is able to wiggle all toes freely without pain - Neurological Exam Neurological Exam: Alert, Awake, Oriented x3 - Psychiatric Exam Psychiatric exam: Normal Affect, Normal Mood Assessment and Plan - Assessment and Plan (Free Text) Assessment: 61F seen at bedside this AM one day s/p L trimalleolar ORIF Plan: Patient seen and evaluated Charts, labs, vitals reviewed Plan discussed with attending Dr. Munson Afebrile, absent leukocytosis Continue medical management per Medicine Continue Physical therapy and NWB status to left leg Patient stable from podiatric standpoint Patient to follow up with Dr. Munson upon discharge from hospital
--- NOTE | 2017-08-21 11:58 | CP.PCM.PN ---
<Mohamud Novoa - Last Filed: 08/21/17 11:50> Subjective - Date & Time of Evaluation Date of Evaluation: 08/21/17 Time of Evaluation: 11:51 - Subjective Subjective: patient seen and examined at bedside. Complaining of pain in the leg. Was shown how to use ICS. No diarrhea, or cough, nausea or vomiting. No other complaints at this time. Objective - Vital Signs/Intake and Output Vital Signs (last 24 hours): Temp Pulse Resp BP Pulse Ox 99.7 F H 75 20 160/80 H 96 08/21/17 08:25 08/21/17 10:25 08/21/17 08:25 08/21/17 10:25 08/21/17 08:25 Intake and Output: 08/21/17 08/21/17 06:59 18:59 Intake Total 730 Output Total 1600 Balance -870 - Medications Medications: Current Medications Diphenhydramine HCl (Benadryl) 25 mg PO Q6 PRN PRN Reason: Other Last Admin: 08/21/17 07:59 Dose: 25 mg Docusate Sodium (Colace) 100 mg PO TID [facility] Last Admin: 08/21/17 10:25 Dose: 100 mg Gabapentin (Neurontin) 300 mg PO TID [facility] PRN Reason: Protocol Last Admin: 08/21/17 10:26 Dose: 300 mg Heparin Sodium (Porcine) (Heparin) 5,000 units SC Q8 [facility] PRN Reason: Protocol Last Admin: 08/21/17 05:06 Dose: 5,000 units Hydralazine HCl (Apresoline) 50 mg PO TID [facility] Last Admin: 08/21/17 10:25 Dose: 50 mg Hydromorphone HCl (Dilaudid) 0.5 mg IVP Q3H PRN PRN Reason: Pain, severe (8-10) Last Admin: 08/21/17 11:05 Dose: 0.5 mg Lisinopril (Zestril) 10 mg PO DAILY [facility] Last Admin: 08/21/17 10:25 Dose: 10 mg Metoprolol Tartrate (Lopressor) 50 mg PO BID [facility] Last Admin: 08/21/17 10:25 Dose: 50 mg Oxycodone HCl (Oxycodone Immediate Release Tab) 30 mg PO Q6H PRN PRN Reason: Pain, severe (8-10) Last Admin: 08/21/17 07:59 Dose: 30 mg Potassium Chloride (K-Dur 20 Meq Er Tab) 20 meq PO DAILY [facility] Last Admin: 08/21/17 10:25 Dose: 20 meq - Labs Labs: 08/21/17 06:30 08/21/17 06:30 PT 13.2 SECONDS (9.4-12.5) H 08/15/17 05:30 INR 1.14 (0.93-1.08) H 08/15/17 05:30 - Constitutional Appears: Well - Head Exam Head Exam: ATRAUMATIC, NORMAL INSPECTION, NORMOCEPHALIC - Eye Exam Eye Exam: EOMI, Normal appearance, PERRL Pupil Exam: NORMAL ACCOMODATION, PERRL - ENT Exam ENT Exam: Mucous Membranes Moist, Normal Exam - Neck Exam Neck Exam: Full ROM, Normal Inspection. absent: Lymphadenopathy - Respiratory Exam Respiratory Exam: Clear to Ausculation Bilateral, NORMAL BREATHING PATTERN - Cardiovascular Exam Cardiovascular Exam: REGULAR RHYTHM, +S1, +S2. absent: Murmur - GI/Abdominal Exam GI & Abdominal Exam: Soft, Normal Bowel Sounds. absent: Tenderness - Exam Additional comments: mascorro - Extremities Exam Additional comments: Cast on L. leg. C/D/I. - Back Exam Back Exam: NORMAL INSPECTION - Neurological Exam Neurological Exam: Alert, Awake, CN II-XII Intact, Normal Gait, Oriented x3 - Psychiatric Exam Psychiatric exam: Normal Affect, Normal Mood - Skin Skin Exam: Dry, Intact, Normal Color, Warm Assessment and Plan - Assessment and Plan (Free Text) Assessment: (1) Trimalleolar fracture Assessment & Plan: For OR Today Podiatry (Munson) Oxycodone 30 PO Q6H PRN Dilaudid 1mg IV Q5H PRN ICS Q1H Status: Acute (2) Congestive heart failure Assessment & Plan: EF 40 on Echo Spoke with cardio - Does not need plavix continued Cardio (Sandu) Status: Chronic (3) Anemia Assessment & Plan: patient was anemic @ 7.3 on admission. Transfused 2 units, H/H stable Status: Acute (4) Breast cancer Assessment & Plan: Sees Dr. Vicente as outpatient Oxycodone 30 Q6H PRN Status: Chronic (5) Pruritus Assessment & Plan: Complaining of itchiness on face and arms Benadryl 25 PO Q6 Status: Chronic (6) HTN (hypertension) Assessment & Plan: Hydralazine 50 PO QD Lisinopril 10 PO QD Lopressor 50 PO BID Status: Chronic (7) Prophylactic measure Assessment & Plan: Hold heparin for surgery SCD contraindicated for fracture No GI PPX indicated at this time Will follow up PT reccs for probable MARYJANE Status: Acute <GaudencioSharan Ramon - Last Filed: 08/21/17 17:56> Objective - Vital Signs/Intake and Output Vital Signs (last 24 hours): Temp Pulse Resp BP Pulse Ox 99 F 83 20 118/61 97 08/21/17 15:10 08/21/17 17:28 08/21/17 15:10 08/21/17 17:28 08/21/17 15:10 Intake and Output: 08/21/17 08/21/17 06:59 18:59 Intake Total 730 720 Output Total 1600 700 Balance -870 20 - Medications Medications: Current Medications Diphenhydramine HCl (Benadryl) 25 mg PO Q6 PRN PRN Reason: Other Last Admin: 08/21/17 14:05 Dose: 25 mg Docusate Sodium (Colace) 100 mg PO TID [facility] Last Admin: 08/21/17 17:28 Dose: 100 mg Gabapentin (Neurontin) 300 mg PO TID [facility] PRN Reason: Protocol Last Admin: 08/21/17 17:28 Dose: 300 mg Heparin Sodium (Porcine) (Heparin) 5,000 units SC Q8 [facility] PRN Reason: Protocol Last Admin: 08/21/17 14:06 Dose: 5,000 units Hydralazine HCl (Apresoline) 50 mg PO TID [facility] Last Admin: 08/21/17 17:28 Dose: 50 mg Hydromorphone HCl (Dilaudid) 0.5 mg IVP Q3H PRN PRN Reason: Pain, severe (8-10) Last Admin: 08/21/17 17:27 Dose: 0.5 mg Lisinopril (Zestril) 10 mg PO DAILY [facility] Last Admin: 08/21/17 10:25 Dose: 10 mg Metoprolol Tartrate (Lopressor) 50 mg PO BID [facility] Last Admin: 08/21/17 17:27 Dose: 50 mg Oxycodone HCl (Oxycodone Immediate Release Tab) 30 mg PO Q6H PRN PRN Reason: Pain, severe (8-10) Last Admin: 08/21/17 14:05 Dose: 30 mg Potassium Chloride (K-Dur 20 Meq Er Tab) 20 meq PO DAILY [facility] Last Admin: 08/21/17 10:25 Dose: 20 meq - Labs Labs: 08/21/17 06:30 08/21/17 06:30 PT 13.2 SECONDS (9.4-12.5) H 08/15/17 05:30 INR 1.14 (0.93-1.08) H 08/15/17 05:30 Attending/Attestation - Attestation I have personally seen and examined this patient.: Yes I have fully participated in the care of the patient.: Yes I have reviewed all pertinent clinical information, including history, physical exam and plan: Yes Notes (Text): I have seen and examined the patient at bedside. Agree with the above note with the following additions/ exceptions: Briefly this is 61 year old female with history of metastatic breast cancer, s/p 4 weeks of IV antibiotic for gram positive bacteremia (june 2017), CHF with both systolic and diastolic dysfunction (last Echo showed EF 40% and diastolic CHF). She was admitted with mechanical fall, found to have distal tibial, distal fibula and medial malleolar fracture. Patient underwent ankle surgery yesterday. Continue NWB. PT recommended MARYJANE. primer powder blender wet are working on placement. Patient's CHF is well compensated with current medical therapy. Upon discharge patient will follow up with Dr Crooks.
[2017-08-22] MEDS: oxyCODONE 30 mg Immediate Release Tab PO PRN ×3 (01:56→15:35)
[2017-08-22] MEDS: HYDROmorphone 0.5 mg/0.5 ml ISec IVP PRN ×3 (05:58→18:29)
[2017-08-22 07:18] LABS: BASO # 0.05 K/mm3 (0.0-2.0); BASO % 0.4 % (0.0-3.0); EOS # 1.9 (0.0-0.7); EOS % 16.8 % (1.5-5.0); GRAN # 4.32 (1.4-6.5); GRAN % 38.4 % (50.0-68.0); HEMOGLOBIN 8.3 g/dL (12.0-16.0); LYMPH # 2.8 (1.2-3.4); LYMPH % 25.2 % (22.0-35.0); MEAN CELL VOLUME 87.9 fl (80.0-105.0); MEAN CORPUSCULAR HEMOGLOBIN 28.6 pg (25.0-35.0); MEAN CORPUSCULAR HGB CONC 32.5 g/dl (31.0-37.0); MEAN PLATELET VOLUME 8.9 fl (7.0-11.0); MONO # 2.2 (0.1-0.6); MONO % 19.2 % (1.0-6.0); RBC 2.9 10^6/uL (3.5-6.1); RED CELL DISTRIBUTION WIDTH 16.9 % (11.5-14.5); WHITE BLOOD COUNT 11.3 10^3/ul (4.5-11.0)
[2017-08-22 07:31] LABS: ALBUMIN 3.5 g/dL (3.0-4.8); ALT/SGPT 20 U/L (7-56); AST/SGOT 32 U/L (14-36); BLOOD UREA NITROGEN 19 mg/dL (7-21); CALCIUM 9.1 mg/dL (8.4-10.5); GFR AFRICAN-AMERICAN > 60; GFR NON-AFRICAN AMERICAN 56
--- NOTE | 2017-08-22 08:21 | PN ---
DATE: 08/21/2017 LOCATION: The patient is in room 572, bed 2. REASON FOR CONSULTATION AND FOLLOWUP: Perioperative evaluation for risk stratification, fracture of left ankle, hypertension. SUBJECTIVE: The patient is postop left ankle fracture, lying flat in bed without chest pain, shortness of breath, or palpitation. PHYSICAL EXAMINATION: VITAL SIGNS: Blood pressure 160/80, respirations 20, pulse 75, temperature 99.7. Yesterday, blood pressure was 121/58, the day before was 137/77. HEENT: Head is normocephalic. Eyes: Pupils normal. Conjunctivae slightly pale. NECK: JVP low. Carotids equal. THORAX: AP diameter normal. LUNGS: Clear. CARDIOVASCULAR: S1 and S2. ABDOMEN: Soft. No tenderness. No organomegaly. EXTREMITIES: The patient had surgery on the left ankle due to fracture. LABORATORY DATA: WBC 9.8, hemoglobin 9.6, hematocrit 29.7, and platelets 257. Sodium 139, potassium 4. BUN 13, creatinine 0.7. Magnesium 1.7, phosphorus 3.6, calcium 9.2. Total protein, albumin normal. DIAGNOSES: Status post fall, fractured left ankle; hypertension; carcinoma of the breast, stage IV with metastasis to the bones. Echocardiogram on 06/17/2017, showed ejection fraction of 40%, decreased left ventricular function. Right ventricular systolic pressure 34. Mild mitral regurgitation. PLAN: The patient is on hydralazine 50 mg t.i.d., heparin 5000 units subcu every 8 hours, potassium 20 daily, metoprolol 50 b.i.d. gabapentin 300 mg t.i.d., lisinopril 10 daily. Yesterday and day before yesterday, blood pressure was normal. We will monitor blood pressure and adjust the medication. In the meantime, we will continue present therapy and will . Ignacio Crandall MD
[2017-08-22] MEDS: Potassium Chloride 20 mEq ER Tab PO SCH (09:15)
--- NOTE | 2017-08-22 10:10 | CP.PCM.DIS ---
<Mohamud Novoa - Last Filed: 08/22/17 10:05> Provider - Provider Date of Admission: 08/14/17 18:24 Attending physician: Sharan Ratliff MD Primary care physician: Mellissa Crooks MD Consults: Podiatry: Arpit Cardio: Sandu Pain Management: Eh Time Spent in preparation of Discharge (in minutes): 45 Hospital Course - Lab Results Lab Results: Micro Results 08/21/17 00:30 Blood Blood Culture - Preliminary NO GROWTH AFTER 24 HOURS 08/15/17 06:59 Urine Urine Culture - Final No Growth (<1,000 CFU/ML) Most Recent Lab Values WBC 11.3 10^3/ul (4.5-11.0) H 08/22/17 07:00 RBC 2.90 10^6/uL (3.5-6.1) L 08/22/17 07:00 Hgb 8.3 g/dL (12.0-16.0) L 08/22/17 07:00 Hct 25.5 % (36.0-48.0) L 08/22/17 07:00 MCV 87.9 fl (80.0-105.0) 08/22/17 07:00 MCH 28.6 pg (25.0-35.0) 08/22/17 07:00 MCHC 32.5 g/dl (31.0-37.0) 08/22/17 07:00 RDW 16.9 % (11.5-14.5) H 08/22/17 07:00 Plt Count 250 10^3/uL (120.0-450.0) 08/22/17 07:00 MPV 8.9 fl (7.0-11.0) 08/22/17 07:00 Gran % 38.4 % (50.0-68.0) L 08/22/17 07:00 Lymph % (Auto) 25.2 % (22.0-35.0) 08/22/17 07:00 [place] % (Auto) 19.2 % (1.0-6.0) H 08/22/17 07:00 Eos % (Auto) 16.8 % (1.5-5.0) H 08/22/17 07:00 Baso % (Auto) 0.4 % (0.0-3.0) 08/22/17 07:00 Gran # 4.32 (1.4-6.5) 08/22/17 07:00 Lymph # (Auto) 2.8 (1.2-3.4) 08/22/17 07:00 [place] # (Auto) 2.2 (0.1-0.6) H 08/22/17 07:00 Eos # (Auto) 1.9 (0.0-0.7) H 08/22/17 07:00 Baso # (Auto) 0.05 K/mm3 (0.0-2.0) 08/22/17 07:00 Neutrophils % (Manual) 58 % (50.0-70.0) 08/19/17 07:00 Lymphocytes % (Manual) 22 % (22.0-35.0) 08/19/17 07:00 Monocytes % (Manual) 5 % (1.0-6.0) 08/19/17 07:00 Eosinophils % (Manual) 15 % (0.0-3.0) H 08/19/17 07:00 Platelet Evaluation Normal (NORMAL) 08/19/17 07:00 PT 13.2 SECONDS (9.4-12.5) H 08/15/17 05:30 INR 1.14 (0.93-1.08) H 08/15/17 05:30 pO2 39 mm/Hg (30-55) 08/14/17 15:55 VBG pH 7.36 (7.32-7.43) 08/14/17 15:55 VBG pCO2 53.0 (40-60) 08/14/17 15:55 VBG HCO3 29.9 mmol/l (21-28) H 08/14/17 15:55 VBG Total CO2 31.5 mmol.L (22-28) H 08/14/17 15:55 VBG O2 Sat (Calc) 79.0 % (40-65) H 08/14/17 15:55 VBG Base Excess 3.2 mmol/L (0.0-2.0) H 08/14/17 15:55 VBG Potassium 4.0 mmol/L (3.6-5.2) 08/14/17 15:55 Sodium 136.0 mmol/L (132-148) 08/14/17 15:55 Chloride 103.0 mmol/L (98-107) 08/14/17 15:55 Glucose 113 mg/dl (65-105) H 08/14/17 15:55 Lactate 1.7 mmol/L (0.7-2.1) 08/14/17 15:55 FiO2 21.0 % 08/14/17 15:55 Sodium 135 mmol/L (132-148) 08/22/17 07:00 Potassium 3.8 mmol/L (3.6-5.0) 08/22/17 07:00 Chloride 97 mmol/L (98-107) L 08/22/17 07:00 Carbon Dioxide 27 mmol/L (21-33) 08/22/17 07:00 Anion Gap 15 (10-20) 08/22/17 07:00 BUN 19 mg/dL (7-21) 08/22/17 07:00 Creatinine 1.0 mg/dl (0.7-1.2) 08/22/17 07:00 Est GFR ( Amer) > 60 08/22/17 07:00 Est GFR (Non-Af Amer) 56 08/22/17 07:00 Random Glucose 98 mg/dL (70-110) 08/22/17 07:00 Calcium 9.1 mg/dL (8.4-10.5) 08/22/17 07:00 Phosphorus 3.6 mg/dL (2.5-4.5) 08/21/17 06:30 Magnesium 1.7 mg/dL (1.7-2.2) 08/21/17 06:30 Total Bilirubin 1.2 mg/dL (0.2-1.3) 08/22/17 07:00 AST 32 U/L (14-36) 08/22/17 07:00 ALT 20 U/L (7-56) 08/22/17 07:00 Alkaline Phosphatase 63 U/L (38-126) 08/22/17 07:00 Lactate Dehydrogenase 654 U/L (333-699) 08/14/17 15:55 Total Creatine Kinase 23 U/L (35-230) L 08/14/17 15:55 Troponin I < 0.01 ng/mL 08/14/17 15:55 NT-Pro-B Natriuret Pep 1760 pg/mL (0-450) H 08/14/17 15:55 Total Protein 7.0 g/dL (5.8-8.3) 08/22/17 07:00 Albumin 3.5 g/dL (3.0-4.8) 08/22/17 07:00 Globulin 3.5 gm/dL 08/22/17 07:00 Albumin/Globulin Ratio 1.0 (1.1-1.8) L 08/22/17 07:00 Procalcitonin 0.05 NG/ML (0.19-0.49) L 08/14/17 15:55 Venous Blood Potassium 4.0 mmol/L (3.6-5.2) 08/14/17 15:55 Urine Color Yellow (YELLOW) 08/15/17 06:59 Urine Appearance Clear (CLEAR) 08/15/17 06:59 Urine pH 6.0 (4.7-8.0) 08/15/17 06:59 Ur Specific Lennon 1.020 (1.005-1.035) 08/15/17 06:59 Urine Protein 30 mg/dL (<30 mg/dL) H 08/15/17 06:59 Urine Glucose (UA) Negative mg/dL (NEGATIVE) 08/15/17 06:59 Urine Ketones Negative mg/dL (NEGATIVE) 08/15/17 06:59 Urine Blood Negative (NEGATIVE) 08/15/17 06:59 Urine Nitrate Negative (NEGATIVE) 08/15/17 06:59 Urine Bilirubin Negative (NEGATIVE) 08/15/17 06:59 Urine Urobilinogen 0.2 E.U./dL (<1 E.U./dL) 08/15/17 06:59 Ur Leukocyte Esterase Negative Simba/uL (NEGATIVE) 08/15/17 06:59 Urine RBC 0 - 2 /hpf (0-2) 08/15/17 06:59 Urine WBC 0 - 2 /hpf (0-6) 08/15/17 06:59 Ur Epithelial Cells 4 - 5 /hpf (0-5) 08/15/17 06:59 Urine Bacteria Small (NEG) 08/15/17 06:59 Blood Type A POSITIVE 08/20/17 08:00 Antibody Screen Negative 08/20/17 08:00 Crossmatch See Detail 08/20/17 08:00 BBK History Checked Patient has bt 08/20/17 08:00 - Hospital Course Hospital Course: 61 F with a PMHx of Stage IV invasive ductal carcinoma of the breast with bone metastasis to bone currently receiving chemotherapy, HTN, CAD, and OA presenting to the [facility] ED complaining of left ankle pain after a mechanical fall. Patient reports having two falls in time by a few hours secondary to being lightheaded. Patient reports that on her second fall she twisted her left ankle and was unable to stand on her left foot. Patient reports pain associated with left ankle and swelling. She reports pain is manageable at this point. Patient was evaluated in ED and found to have left malleolar fracture. Orthopedic political cartoonist was notified of case. Podiatry political cartoonist was notified. Patient to be admitted for possible surgery in AM. Patient denies chest pain, shortness of breath, headache, abdominal discomfort, numbness, nausea, vomiting, fever, chills, numbness or tingling. Patient reports continued feeling in her left lower extremity along with general weakness that has been an ongoing issue. 12 point ROS otherwise not mentioned in HPI is benign. Hospital Course: Patient was cleared by cardiology for surgery. Patient was seen by Dr. Munson of podiatry. Went for ORIF for which she tolerated well. The remainder of her stay was uncomplicated. She was seen by PT who recommended [facility]. She will be discharged to [facility] with instructions to follow up with Dr. Munson as well as her PMD. The patient was on Plavix when she cam in but there was no clear indication for this. After discussing the case with Dr. Alfred of cardiology he agreed with the plan to discontinue plavix at this time. Discharge Exam - Head Exam Head Exam: ATRAUMATIC, NORMAL INSPECTION, NORMOCEPHALIC - Additional Findings Additional findings: - Constitutional Appears: Well - Head Exam Head Exam: ATRAUMATIC, NORMAL INSPECTION, NORMOCEPHALIC - Eye Exam Eye Exam: EOMI, Normal appearance, PERRL Pupil Exam: NORMAL ACCOMODATION, PERRL - ENT Exam ENT Exam: Mucous Membranes Moist, Normal Exam - Neck Exam Neck Exam: Full ROM, Normal Inspection. absent: Lymphadenopathy - Respiratory Exam Respiratory Exam: Clear to Ausculation Bilateral, NORMAL BREATHING PATTERN - Cardiovascular Exam Cardiovascular Exam: REGULAR RHYTHM, +S1, +S2. absent: Murmur - GI/Abdominal Exam GI & Abdominal Exam: Soft, Normal Bowel Sounds. absent: Tenderness - Extremities Exam Additional comments: Cast on L. leg. C/D/I. - Back Exam Back Exam: NORMAL INSPECTION - Neurological Exam Neurological Exam: Alert, Awake, CN II-XII Intact, Normal Gait, Oriented x3 - Psychiatric Exam Psychiatric exam: Normal Affect, Normal Mood - Skin Skin Exam: Dry, Intact, Normal Color, Warm Discharge Plan - Follow Up Plan Condition: STABLE Disposition: REHAB FACILITY/REHAB UNIT Instructions: Ankle Fracture, Opioids for Short-Term Treatment of Pain, Near Fainting (DC), Leukocytosis (DC) Additional Instructions: You are being discharged to receive additional rehabilitation for your ankle fracture. Please follow up with Dr. Munson when discharged. Please call the office to make an appointment. I have attached his office information. Referrals: Costa Munson DPM [Staff Provider] - Mellissa Crooks MD [Primary Care Provider] - <Sharan Ratliff - Last Filed: 08/22/17 13:16> Provider - Provider Date of Admission: 08/14/17 18:24 Attending physician: Sharan Ratliff MD Primary care physician: Mellissa Crooks MD Hospital Course - Lab Results Lab Results: Micro Results 08/21/17 00:30 Blood Blood Culture - Preliminary NO GROWTH AFTER 24 HOURS 08/15/17 06:59 Urine Urine Culture - Final No Growth (<1,000 CFU/ML) Most Recent Lab Values WBC 11.3 10^3/ul (4.5-11.0) H 08/22/17 07:00 RBC 2.90 10^6/uL (3.5-6.1) L 08/22/17 07:00 Hgb 8.3 g/dL (12.0-16.0) L 08/22/17 07:00 Hct 25.5 % (36.0-48.0) L 08/22/17 07:00 MCV 87.9 fl (80.0-105.0) 08/22/17 07:00 MCH 28.6 pg (25.0-35.0) 08/22/17 07:00 MCHC 32.5 g/dl (31.0-37.0) 08/22/17 07:00 RDW 16.9 % (11.5-14.5) H 08/22/17 07:00 Plt Count 250 10^3/uL (120.0-450.0) 08/22/17 07:00 MPV 8.9 fl (7.0-11.0) 08/22/17 07:00 Gran % 38.4 % (50.0-68.0) L 08/22/17 07:00 Lymph % (Auto) 25.2 % (22.0-35.0) 08/22/17 07:00 [place] % (Auto) 19.2 % (1.0-6.0) H 08/22/17 07:00 Eos % (Auto) 16.8 % (1.5-5.0) H 08/22/17 07:00 Baso % (Auto) 0.4 % (0.0-3.0) 08/22/17 07:00 Gran # 4.32 (1.4-6.5) 08/22/17 07:00 Lymph # (Auto) 2.8 (1.2-3.4) 08/22/17 07:00 [place] # (Auto) 2.2 (0.1-0.6) H 08/22/17 07:00 Eos # (Auto) 1.9 (0.0-0.7) H 08/22/17 07:00 Baso # (Auto) 0.05 K/mm3 (0.0-2.0) 08/22/17 07:00 Neutrophils % (Manual) 58 % (50.0-70.0) 08/19/17 07:00 Lymphocytes % (Manual) 22 % (22.0-35.0) 08/19/17 07:00 Monocytes % (Manual) 5 % (1.0-6.0) 08/19/17 07:00 Eosinophils % (Manual) 15 % (0.0-3.0) H 08/19/17 07:00 Platelet Evaluation Normal (NORMAL) 08/19/17 07:00 PT 13.2 SECONDS (9.4-12.5) H 08/15/17 05:30 INR 1.14 (0.93-1.08) H 08/15/17 05:30 pO2 39 mm/Hg (30-55) 08/14/17 15:55 VBG pH 7.36 (7.32-7.43) 08/14/17 15:55 VBG pCO2 53.0 (40-60) 08/14/17 15:55 VBG HCO3 29.9 mmol/l (21-28) H 08/14/17 15:55 VBG Total CO2 31.5 mmol.L (22-28) H 08/14/17 15:55 VBG O2 Sat (Calc) 79.0 % (40-65) H 08/14/17 15:55 VBG Base Excess 3.2 mmol/L (0.0-2.0) H 08/14/17 15:55 VBG Potassium 4.0 mmol/L (3.6-5.2) 08/14/17 15:55 Sodium 136.0 mmol/L (132-148) 08/14/17 15:55 Chloride 103.0 mmol/L (98-107) 08/14/17 15:55 Glucose 113 mg/dl (65-105) H 08/14/17 15:55 Lactate 1.7 mmol/L (0.7-2.1) 08/14/17 15:55 FiO2 21.0 % 08/14/17 15:55 Sodium 135 mmol/L (132-148) 08/22/17 07:00 Potassium 3.8 mmol/L (3.6-5.0) 08/22/17 07:00 Chloride 97 mmol/L (98-107) L 08/22/17 07:00 Carbon Dioxide 27 mmol/L (21-33) 08/22/17 07:00 Anion Gap 15 (10-20) 08/22/17 07:00 BUN 19 mg/dL (7-21) 08/22/17 07:00 Creatinine 1.0 mg/dl (0.7-1.2) 08/22/17 07:00 Est GFR ( Amer) > 60 08/22/17 07:00 Est GFR (Non-Af Amer) 56 08/22/17 07:00 Random Glucose 98 mg/dL (70-110) 08/22/17 07:00 Calcium 9.1 mg/dL (8.4-10.5) 08/22/17 07:00 Phosphorus 3.6 mg/dL (2.5-4.5) 08/21/17 06:30 Magnesium 1.7 mg/dL (1.7-2.2) 08/21/17 06:30 Total Bilirubin 1.2 mg/dL (0.2-1.3) 08/22/17 07:00 AST 32 U/L (14-36) 08/22/17 07:00 ALT 20 U/L (7-56) 08/22/17 07:00 Alkaline Phosphatase 63 U/L (38-126) 08/22/17 07:00 Lactate Dehydrogenase 654 U/L (333-699) 08/14/17 15:55 Total Creatine Kinase 23 U/L (35-230) L 08/14/17 15:55 Troponin I < 0.01 ng/mL 08/14/17 15:55 NT-Pro-B Natriuret Pep 1760 pg/mL (0-450) H 08/14/17 15:55 Total Protein 7.0 g/dL (5.8-8.3) 08/22/17 07:00 Albumin 3.5 g/dL (3.0-4.8) 08/22/17 07:00 Globulin 3.5 gm/dL 08/22/17 07:00 Albumin/Globulin Ratio 1.0 (1.1-1.8) L 08/22/17 07:00 Procalcitonin 0.05 NG/ML (0.19-0.49) L 08/14/17 15:55 Venous Blood Potassium 4.0 mmol/L (3.6-5.2) 08/14/17 15:55 Urine Color Yellow (YELLOW) 08/15/17 06:59 Urine Appearance Clear (CLEAR) 08/15/17 06:59 Urine pH 6.0 (4.7-8.0) 08/15/17 06:59 Ur Specific Lennon 1.020 (1.005-1.035) 08/15/17 06:59 Urine Protein 30 mg/dL (<30 mg/dL) H 08/15/17 06:59 Urine Glucose (UA) Negative mg/dL (NEGATIVE) 08/15/17 06:59 Urine Ketones Negative mg/dL (NEGATIVE) 08/15/17 06:59 Urine Blood Negative (NEGATIVE) 08/15/17 06:59 Urine Nitrate Negative (NEGATIVE) 08/15/17 06:59 Urine Bilirubin Negative (NEGATIVE) 08/15/17 06:59 Urine Urobilinogen 0.2 E.U./dL (<1 E.U./dL) 08/15/17 06:59 Ur Leukocyte Esterase Negative Simba/uL (NEGATIVE) 08/15/17 06:59 Urine RBC 0 - 2 /hpf (0-2) 18 06:59 Urine WBC 0 - 2 /hpf (0-6) 18 06:59 Ur Epithelial Cells 4 - 5 /hpf (0-5) 08/15/17 06:59 Urine Bacteria Small (NEG) 08/15/17 06:59 Blood Type A POSITIVE 08/20/17 08:00 Antibody Screen Negative 08/20/17 08:00 Crossmatch See Detail 08/20/17 08:00 BBK History Checked Patient has bt 08/20/17 08:00 Attending/Attestation - Attestation I have personally seen and examined this patient.: Yes I have fully participated in the care of the patient.: Yes I have reviewed all pertinent clinical information, including history, physical exam and plan: Yes Notes (Text): I have seen and examined the patient at bedside. Agree with the above note with the following additions/ exceptions: Briefly this is 61 year old female with history of metastatic breast cancer, s/p 4 weeks of IV antibiotic for gram positive bacteremia (june 2017), CHF with both systolic and diastolic dysfunction (last Echo showed EF 40% and diastolic CHF). She was admitted with mechanical fall, found to have distal tibial, distal fibula and medial malleolar fracture. Patient underwent ankle surgery few days ago. Continue NWB. PT recommended [facility]. Upon discharge patient will follow up with Dr Crooks.
--- NOTE | 2017-08-22 11:08 | CP.PCM.PN ---
Subjective - Date & Time of Evaluation Date of Evaluation: 08/22/17 Time of Evaluation: 07:15 - Subjective Subjective: Awake, doing okay,denies chest pain, denies shortness of breath Reason for consultation and follow up: Cardiac evaluation/clearance for surgery , post repair of left malleolar fracture, post fall secondary to lightheadedness,hypertension,coronary artery disease, Stage 4 breast cancer with bone metastasis. Seen and examined by me and Dr. Crandall Objective - Vital Signs/Intake and Output Vital Signs (last 24 hours): Temp Pulse Resp BP Pulse Ox 98.6 F 73 18 111/63 97 08/22/17 08:18 08/22/17 09:17 08/22/17 08:18 08/22/17 09:17 08/22/17 08:18 Intake and Output: 08/22/17 08/22/17 06:59 18:59 Intake Total 1140 Output Total 1050 Balance 90 - Medications Medications: Current Medications Diphenhydramine HCl (Benadryl) 25 mg PO Q6 PRN PRN Reason: Other Last Admin: 08/22/17 09:15 Dose: 25 mg Docusate Sodium (Colace) 100 mg PO TID [facility] Last Admin: 08/22/17 09:15 Dose: 100 mg Gabapentin (Neurontin) 300 mg PO TID [facility] PRN Reason: Protocol Last Admin: 08/22/17 09:15 Dose: 300 mg Heparin Sodium (Porcine) (Heparin) 5,000 units SC Q8 [facility] PRN Reason: Protocol Last Admin: 08/22/17 05:58 Dose: 5,000 units Hydralazine HCl (Apresoline) 50 mg PO TID [facility] Last Admin: 08/22/17 09:17 Dose: 50 mg Hydromorphone HCl (Dilaudid) 0.5 mg IVP Q3H PRN PRN Reason: Pain, severe (8-10) Last Admin: 08/22/17 05:58 Dose: 0.5 mg Lisinopril (Zestril) 10 mg PO DAILY [facility] Last Admin: 08/22/17 09:17 Dose: 10 mg Metoprolol Tartrate (Lopressor) 50 mg PO BID [facility] Last Admin: 08/22/17 09:17 Dose: 50 mg Oxycodone HCl (Oxycodone Immediate Release Tab) 30 mg PO Q6H PRN PRN Reason: Pain, severe (8-10) Last Admin: 08/22/17 09:17 Dose: 30 mg Potassium Chloride (K-Dur 20 Meq Er Tab) 20 meq PO DAILY [facility] Last Admin: 08/22/17 09:15 Dose: 20 meq - Labs Labs: 08/22/17 07:00 08/22/17 07:00 PT 13.2 SECONDS (9.4-12.5) H 08/15/17 05:30 INR 1.14 (0.93-1.08) H 08/15/17 05:30 - Constitutional Appears: No Acute Distress - Head Exam Head Exam: NORMOCEPHALIC - ENT Exam ENT Exam: Mucous Membranes Moist - Respiratory Exam Respiratory Exam: Clear to Ausculation Bilateral, NORMAL BREATHING PATTERN - Cardiovascular Exam Cardiovascular Exam: +S1, +S2 - GI/Abdominal Exam GI & Abdominal Exam: Soft, Normal Bowel Sounds - Extremities Exam Extremities Exam: Normal Capillary Refill Additional comments: left jhno wrap left leg, positive sensation,able to wiggle toes - Neurological Exam Neurological Exam: Alert, Awake, Oriented x3 - Psychiatric Exam Psychiatric exam: Normal Affect, Normal Mood - Skin Skin Exam: Normal Color, Warm Assessment and Plan - Assessment and Plan (Free Text) Assessment: A 61 year old female who came in to the ER due to left ankle pain secondary to fall. She felt lightheadedness and fell x 2 and twisted her left ankle on the 2nd fall. Evaluated at ER and had left malleolar fracture. Soft cast applied on left leg. Orthopaedic on consult and possible surgery of left foot. 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 currently receiving chemotherapy,osteoarthritis, right hip surgery, post repair of malleolar fracture left leg, with jhon wrap to left leg Plan: Post repair of malleolar fracture left leg, with jhon wrap to left leg, Non weight bearing on affected leg On ASA 81 mg daily,Plavix 75 mg daily,Heparin SQ, Hydralazine 50 mg TID, Lisinopril 10 mg daily,Lopressor 50 mg BID Controlled BP and heart rate Continue current medications Continue current treatment Physical therapy in progress For possible discharge today to subacute rehab Follow up in the office once discharge from rehab Will follow up Plan and treatment discussed with Dr. Crandall
[2017-08-22 14:35] VITALS: O2SAT 96
[2017-08-22 17:09] VITALS: BP 115/56; PULSE 74; RESP 19; TEMP 98.4
== END 2017-08-22 20:22 | DRG 559 ==
LOC: ED 15:33 → ERH 18:24 → 2RSO 21:39 → 5RSO 08-19 21:38
PROVIDERS: ADMIT Internal Medicine; ATTEND Hospitalist
PROC: 30233N1 Transfusion of Nonautologous Red Blood Cells into Peripheral Vein, Percutaneous Approach (ICD-10-PCS; 2017-08-16)
PROC: 0QSK04Z Reposition Left Fibula with Internal Fixation Device, Open Approach (ICD-10-PCS; principal; 2017-08-20 07:30)
DX: S82.852A Displaced trimalleolar fracture of left lower leg, initial encounter for closed fracture (principal); N17.9 Acute kidney failure, unspecified; I50.40 Unspecified combined systolic (congestive) and diastolic (congestive) heart failure; I11.0 Hypertensive heart disease with heart failure; C79.51 Secondary malignant neoplasm of bone; S93.432A Sprain of tibiofibular ligament of left ankle, initial encounter; C50.919 Malignant neoplasm of unspecified site of unspecified female breast; R55 Syncope and collapse; M81.0 Age-related osteoporosis without current pathological fracture; I25.10 Atherosclerotic heart disease of native coronary artery without angina pectoris; F41.9 Anxiety disorder, unspecified; I34.0 Nonrheumatic mitral (valve) insufficiency; I27.20 Pulmonary hypertension, unspecified; D64.9 Anemia, unspecified; I95.9 Hypotension, unspecified; M19.90 Unspecified osteoarthritis, unspecified site; L29.9 Pruritus, unspecified; Y93.01 Activity, walking, marching and hiking; W01.0XXA Fall on same level from slipping, tripping and stumbling without subsequent striking against object, initial encounter; Y92.098 Other place in other non-institutional residence as the place of occurrence of the external cause

== ENCOUNTER 2018-01-18 14:11 | Inpatient (IN) | payer OTHER ==
--- NOTE | 2018-01-18 14:40 | ED PDOC ---
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 EMS was called because the patient had a fever and was acting strange. HPI/ ROS limited due to patient's altered mental status. As per general merchandise salesperson, the patient has had decreased po intake for the past two days, has been confused within that same time frame, has been talking nonsensically, vomited x3 today and defectaed on herself today. At normal baseline, the patient has fully and regular conversations, has a home health aid. 01/18/18 18:14 Time/Duration: Prior to Arrival Symptom Onset: Sudden Symptom Course: Unchanged Activities at Onset: Rest, Light Context: Home Past Medical History - Provider Review Nursing Documentation Reviewed: Yes - Past History Past History: No Previous - Infectious Disease Hx of Infectious Diseases: None - Tetanus Immunization Tetanus Immunization: Unknown - Reproductive Menopause: Yes - Past Medical History Past Medical History: Non-Contributing - Cardiac Hx Cardiac Disorders: No Hx Hypertension: Yes - Pulmonary Hx Respiratory Disorders: No - Neurological Hx Neurological Disorder: No - HEENT Hx HEENT Disorder: No - Renal Hx Renal Disorder: No - Endocrine/Metabolic Hx Endocrine Disorders: No - Hematological/Oncological Hx Blood Transfusions: Yes Hx Blood Transfusion Reaction: No - Integumentary Hx Dermatological Disorder: No - Musculoskeletal/Rheumatological Hx Falls: No - Gastrointestinal Hx Gastrointestinal Disorders: No - Genitourinary/Gynecological Hx Genitourinary Disorders: No - Psychiatric Hx Anxiety: Yes Hx Substance Use: No - Surgical History Hx Mastectomy: No Other/Comment: stage 4 breast, bone ca - Anesthesia Hx Anesthesia Reactions: No Hx Malignant Hyperthermia: No - Suicidal Assessment Feels Threatened In Home Enviroment: No Family/Social History - Physician Review Nursing Documentation Reviewed: Yes Family/Social History: No Known Family HX Smoking Status: Never Smoked Hx Alcohol Use: No Amount per day: 3 Hx Substance Use: No Hx Substance Use Treatment: No Allergies/Home Meds Allergies/Adverse Reactions: Allergies No Known Allergies Allergy (Verified 07/28/17 11:57) Home Medications: Home Meds Medication Instructions Recorded Confirmed Ranitidine HCl [Acid Wire Annealer] 100 mg PO DAILY 07/28/17 08/14/17 Review of Systems - Physician Review All systems were reviewed & negative as marked: Yes - Review of Systems Systems not reviewed;Unavailable: Altered Mental Status Physical Exam - Physical Exam Narrative Physical Exam (Text): 01/18/18 14:42 Gen: VS reviewed, disoriented and confused, well developed, mild distress, patient does not follow respond to questions appropriately ENT: dry mucous membrane Eye: EOMI, PERRL Neck: no JVD, supple, no adenopathy CV: rapid rate, regular rhythm, no rubs,no murmur, no gallops, S1, S2, pulses equal and strong Pulm: no distress, clear to auscultation, no wheeze, no rhonchi, breath sounds equal, no rales Abd: soft, nondistended Ext: no edema Skin: pale color, no rash, no cyanosis Psych: unable to assess second to condition Neuro: unable to assess second to condition Physical Exam Limitations: Altered Mental Status Vital Signs Reviewed: Yes Temperature: Febrile Blood Pressure: Hypertensive Pulse: Tachycardic Respiratory Rate: Normal Appearance: Positive for: Well-Appearing, Non-Toxic, Comfortable Pain Distress: None Mental Status: Positive for: Alert and Oriented X 3 Medical Decision Making ED Course and Treatment: 01/18/18 14:40 Impression: A 62 year old female is brought into the emergency department for altered mental status. Plan: -- EKG -- Chest X-Ray -- Labs -- Urinalysis -- Blood/Urine Culture -- Reassess and disposition Prior Visits: Notes and results from previous visits were reviewed. Progress Notes: 01/18/18 14:34: Code sepsis called. 01/18/18 16:[address] victor. 01/18/18 17:20 admit accepted by hospitalist dr. riggins, admit accepted by dr. mehta char house supervisor. patient to be admitted for confusion, severe sepsis, empiric antibiotics. patient is not able to follow commands due to confusion mental state and would it be fairly aggressive and potentially dangerous to attempt a spinal tap in this case. for this reason, i empirically treated for possible meningitis. patient to go to the ICU for critical monitoring and further care. 01/18/18 17:27 - Critical Care Critical Care Minutes: Other (35 minutes) - Lab Interpretations I have reviewed the lab results: Yes - RAD Interpretation Narrative RAD Interpretations (Text): Chest X-Ray Dictator : Alfredo Iyer MD Report Date : 01/18/2018 15:13:19 IMPRESSION: No active disease. - EKG Interpretation EKG Interpretation (Text): 01/18/18 16:34 1603: sinus rhythm at 138 bpm, bigeminy, artifact Interpreted by ED Physician: Yes Type: 12 lead EKG - Scribe Statement The provider has reviewed the documentation as recorded by the Scribe Tarah Alves Provider Scribe Attestation: All medical record entries made by the Scribe were at my direction and personally dictated by me. I have reviewed the chart and agree that the record accurately reflects my personal performance of the history, physical exam, medical decision making, and the department course for this patient. I have also personally directed, reviewed, and agree with the discharge instructions and disposition Disposition/Present on Arrival - Present on Arrival Any Indicators Present on Arrival: No History of DVT/PE: No History of Uncontrolled Diabetes: No Urinary Catheter: No History of Decub. Ulcer: No History Surgical Site Infection Following: None - Disposition Have Diagnosis and Disposition been Completed?: Yes Diagnosis: Severe sepsis, Sepsis Disposition: HOSPITALIZED Disposition Time: 17:20 Patient Plan: ICU Patient Problems: Current Active Problems Problem Status Onset Sepsis Acute Severe sepsis Acute Condition: FAIR Discharge Instructions (ExitCare): Sepsis (ED) Forms: [employer] (Upper Sorbian)
--- NOTE | 2018-01-18 14:41 | ED PDOC ---
Arrival/HPI - General Chief Complaint: Altered Mental Status Time Seen by Provider: 01/18/18 14:34 Past Medical History - Past History Past History: No Previous - Infectious Disease Hx of Infectious Diseases: None - Tetanus Immunization Tetanus Immunization: Unknown - Reproductive Menopause: Yes - Past Medical History Past Medical History: Non-Contributing - Cardiac Hx Cardiac Disorders: No Hx Hypertension: Yes - Pulmonary Hx Respiratory Disorders: No - Neurological Hx Neurological Disorder: No - HEENT Hx HEENT Disorder: No - Renal Hx Renal Disorder: No - Endocrine/Metabolic Hx Endocrine Disorders: No - Hematological/Oncological Hx Blood Transfusions: Yes Hx Blood Transfusion Reaction: No - Integumentary Hx Dermatological Disorder: No - Musculoskeletal/Rheumatological Hx Falls: No - Gastrointestinal Hx Gastrointestinal Disorders: No - Genitourinary/Gynecological Hx Genitourinary Disorders: No - Psychiatric Hx Anxiety: Yes Hx Substance Use: No - Surgical History Hx Mastectomy: No Other/Comment: stage 4 breast, bone ca - Anesthesia Hx Anesthesia Reactions: No Hx Malignant Hyperthermia: No - Suicidal Assessment Feels Threatened In Home Enviroment: No Family/Social History Smoking Status: Never Smoked Hx Alcohol Use: No Amount per day: 3 Hx Substance Use: No Hx Substance Use Treatment: No Allergies/Home Meds Allergies/Adverse Reactions: Allergies No Known Allergies Allergy (Verified 07/28/17 11:57) Home Medications: Home Meds Medication Instructions Recorded Confirmed Ranitidine HCl [Acid Behavioral Health Tech] 100 mg PO DAILY 07/28/17 08/14/17 Physical Exam - Physical Exam Narrative Physical Exam (Text): 01/18/18 14:38 Gen: VS reviewed, disoriented and confused, well developed, mild distress, patient does not follow respond to questions appropriately ENT: dry mucous membrane Eye: EOMI, PERRL Neck: no JVD, supple, no adenopathy CV: rapid rate, regular rhythm, no rubs,no murmur, no gallops, S1, S2, pulses equal and strong Pulm: no distress, clear to auscultation, no wheeze, no rhonchi, breath sounds equal, no rales Abd: soft, nondistended Ext: no edema Skin: pale color, no rash, no cyanosis Psych: unable to assess second to condition Neuro: unable to assess second to condition Vital Signs Temp Pulse Resp BP Pulse Ox 01/18/18 14:36 102.8 F H 130 H 20 190/96 H 98 Disposition/Present on Arrival - Present on Arrival History of DVT/PE: No History of Uncontrolled Diabetes: No Urinary Catheter: No History of Decub. Ulcer: No History Surgical Site Infection Following: None - Disposition
[2018-01-18] MEDS ORDERED: Vancomycin 500 mg Inj IVPB STA (14:43)
[2018-01-18] MEDS ORDERED: cefTRIAXone 2 GM IN NS 2 GM/100 ML BAG IVPB STA (14:44)
[2018-01-18] MEDS ORDERED: AMPicillin 2 GM in Sodium Chloride 0.9% 100 ML IVPB STA (14:50)
[2018-01-18] MEDS ORDERED: Sodium Chloride 0.9% 1,000 ML IV STA ×2 (14:52)
[2018-01-18 15:11] LABS: VENOUS BLOOD GAS BASE EXCESS 5.2 mmol/L (0.0-2.0); VENOUS BLOOD GAS PO2 32 mm/Hg (30-55); VENOUS BLOOD PH 7.58 (7.32-7.43)
[2018-01-18 15:12] LABS: BASO # 0.01 K/mm3 (0.0-2.0); GRAN # 22.75 (1.4-6.5); GRAN % 85.9 % (50.0-68.0); HEMOGLOBIN 12.4 g/dL (12.0-16.0); LYMPH # 0.8 (1.2-3.4); LYMPH % 2.9 % (22.0-35.0); MEAN CELL VOLUME 81.1 fl (80.0-105.0); MEAN CORPUSCULAR HEMOGLOBIN 27.3 pg (25.0-35.0); MEAN CORPUSCULAR HGB CONC 33.6 g/dl (31.0-37.0); MEAN PLATELET VOLUME 9.7 fl (7.0-11.0); MONO % 11.2 % (1.0-6.0); PLATELET COUNT 243 10^3/uL (120.0-450.0); RBC 4.55 10^6/uL (3.5-6.1); RED CELL DISTRIBUTION WIDTH 14.9 % (11.5-14.5)
[2018-01-18 15:14] LABS: WHITE BLOOD COUNT 26.5 10^3/ul (4.5-11.0)
[2018-01-18 15:16] LABS: URINE BILIRUBIN NEGATIVE (NEGATIVE); URINE BLOOD LARGE (NEGATIVE); URINE GLUCOSE (UA) NEGATIVE (NEGATIVE); URINE LEUKOCYTE ESTERASE NEGATIVE Leu/uL (NEGATIVE); URINE PROTEIN >=300 mg/dL (<30 mg/dL); URINE UROBILINOGEN 0.2 E.U./dL (<1 E.U./dL)
--- NOTE | 2018-01-18 15:16 | RAD ---
Date of service: 01/18/2018 HISTORY: Sepsis Patient COMPARISON: 08/14/2017 FINDINGS: LUNGS: No active pulmonary disease. PLEURA: No significant pleural effusion identified, no pneumothorax apparent. CARDIOVASCULAR: Normal. OSSEOUS STRUCTURES: No significant abnormalities. VISUALIZED UPPER ABDOMEN: Normal. OTHER FINDINGS: None. IMPRESSION: No active disease.
[2018-01-18 15:17] LABS: URINE APPEARANCE SL CLOUDY (CLEAR); URINE COLOR DARK YELLOW (YELLOW)
[2018-01-18 15:25] LABS: INR 1.7; PARTIAL THROMBOPLASTIN TIME 31.4 Seconds (25.1-36.5); PROTHROMBIN TIME 19.6 SECONDS (9.4-12.5)
[2018-01-18 15:34] LABS: URINE BACTERIA MANY (NEG); URINE RBC 20 - 25 /hpf (0-2)
[2018-01-18 15:35] LABS: URINE AMORPHOUS SEDIMENT FEW; URINE COARSE GRANULAR CAST TRACE /hpf (0-2)
[2018-01-18 15:40] LABS: BAND 4 % (0-2); LYMPHOCYTE 6 % (22.0-35.0); MONOCYTE 7 % (1.0-6.0); NEUTROPHIL 83 % (50.0-70.0); PLATELET ESTIMATE NORMAL (NORMAL)
[2018-01-18 15:41] LABS: ANISOCYTOSIS 1+; MICROCYTOSIS 1+; OVALOCYTES SLIGHT
[2018-01-18 15:44] LABS: BLOOD UREA NITROGEN 23 mg/dL (7-21); CALCIUM 10.8 mg/dL (8.4-10.5); GFR NON-AFRICAN AMERICAN > 60
[2018-01-18 15:46] LABS: ALBUMIN 4.8 g/dL (3.0-4.8); ALT/SGPT 15 U/L (7-56); AST/SGOT 81 U/L (14-36)
[2018-01-18 17:31] LABS: VENOUS BLOOD GAS PO2 51 mm/Hg (30-55); VENOUS BLOOD PH 7.61 (7.32-7.43)
--- NOTE | 2018-01-18 17:34 | CP.PCM.CON ---
History of Present Illness - History of Present Illness History of Present Illness: MICU CONSULT NOTE HPI Patient is 62yo feamale with a PMHx of Stage IV invasive ductal carcinoma of the breast with bone metastasis HTN, CAD, and OA presented with fever and AMS. History is limited to the ER staff and chart. As per the ER and chart patient was found to be altered and had fever, brought to the ER by family. No family a vailable to provide history. Pt currently febrile, awake, not following commands, soft neck, moving all 4 extremities. PMHx Stage IV invasive ductal carcinoma of the breast with bone metastasis HTN, CAD, and OA, bacteremia PSHx ORIF MEDS as per EMR Social cannot obtain FHx NC Review of Systems - Review of Systems Review of Systems: as per HPI Past Patient History - Infectious Disease Hx of Infectious Diseases: None - Tetanus Immunizations Tetanus Immunization: Unknown - Past Social History Smoking Status: Never Smoked - CARDIAC Hx Cardiac Disorders: No Hx Hypertension: Yes - PULMONARY Hx Respiratory Disorders: No - NEUROLOGICAL Hx Neurological Disorder: No - HEENT Hx HEENT Problems: No - RENAL Hx Chronic Kidney Disease: No - ENDOCRINE/METABOLIC Hx Endocrine Disorders: No - HEMATOLOGICAL/ONCOLOGICAL Hx Blood Transfusions: Yes Hx Blood Transfusion Reaction: No - INTEGUMENTARY Hx Dermatological Problems: No - MUSCULOSKELETAL/RHEUMATOLOGICAL Hx Falls: No - GASTROINTESTINAL Hx Gastrointestinal Disorders: No - GENITOURINARY/GYNECOLOGICAL Hx Genitourinary Disorders: No - PSYCHIATRIC Hx Anxiety: Yes Hx Substance Use: No - SURGICAL HISTORY Hx Mastectomy: No Other/Comment: stage 4 breast, bone ca - ANESTHESIA Hx Anesthesia Reactions: No Hx Malignant Hyperthermia: No Meds Allergies/Adverse Reactions: Allergies Allergy/AdvReac Type Severity Reaction Status Date / Time No Known Allergies Allergy Verified 07/28/17 11:57 - Medications Medications: Current Medications Potassium Chloride (Potassium Chloride 20 Meq/100 Ml) 20 meq in 100 mls @ 50 mls/hr IVPB Q2H OLGA Stop: 01/18/18 20:14 Last Admin: 01/18/18 16:29 Dose: 50 mls/hr Physical Exam - Constitutional Appears: Toxic, In Acute Distress, Older Than Stated Age, Cachectic, Chronically Ill - Head Exam Head Exam: NORMAL INSPECTION - Eye Exam Eye Exam: Normal appearance - ENT Exam ENT Exam: Mucous Membranes Dry - Neck Exam Neck exam: Positive for: Full Rom - Respiratory Exam Respiratory Exam: Clear to Auscultation Bilateral, NORMAL BREATHING PATTERN - Cardiovascular Exam Cardiovascular Exam: Tachycardia, REGULAR RHYTHM, +S1, +S2 - GI/Abdominal Exam GI & Abdominal Exam: Normal Bowel Sounds, Soft - Extremities Exam Extremities exam: Positive for: normal inspection - Neurological Exam Neurological exam: Altered Results - Vital Signs Recent Vital Signs: Last Vital Signs Temp 102.8 F H 01/18/18 14:36 Pulse 158 H 01/18/18 16:22 Resp 22 01/18/18 16:22 BP 198/106 H 01/18/18 16:22 Pulse Ox 96 01/18/18 16:22 - Labs Result Diagrams: 01/18/18 14:48 01/18/18 14:48 Labs: Laboratory Results - last 24 hr 01/18/18 01/18/18 01/18/18 14:48 14:48 14:48 WBC 26.5 H* D RBC 4.55 Hgb 12.4 D Hct 36.9 MCV 81.1 D MCH 27.3 MCHC 33.6 RDW 14.9 H Plt Count 243 MPV 9.7 Gran % 85.9 H Lymph % (Auto) 2.[address] [place] % (Auto) 11.2 H Eos % (Auto) 0.0 L Baso % (Auto) 0.0 Gran # 22.75 H Lymph # (Auto) 0.[address] [place] # (Auto) 3.0 H Eos # (Auto) 0.0 Baso # (Auto) 0.01 Neutrophils % (Manual) 83 H Band Neutrophils % 4 H Lymphocytes % (Manual) 6 L Monocytes % (Manual) 7 H Platelet Evaluation Normal Anisocytosis (manual) 1+ Microcytosis (manual) 1+ Ovalocytes Slight PT 19.6 H INR 1.70 APTT 31.4 pO2 VBG pH VBG pCO2 VBG HCO3 VBG Total CO2 VBG O2 Sat (Calc) VBG Base Excess VBG Potassium Sodium Chloride Glucose Lactate FiO2 Potassium Carbon Dioxide Anion Gap BUN Creatinine Est GFR ( Amer) Est GFR (Non-Af Amer) Random Glucose Calcium Phosphorus Magnesium Total Bilirubin AST ALT Alkaline Phosphatase Total Protein Albumin Globulin Albumin/Globulin Ratio Venous Blood Potassium Urine Color Dark yellow Urine Appearance Sl cloudy Urine pH 6.0 Ur Specific [place] >= 1.030 Urine Protein >=300 H Urine Glucose (UA) Negative Urine Ketones Negative Urine Blood Large H Urine Nitrate Negative Urine Bilirubin Negative Urine Urobilinogen 0.2 Ur Leukocyte Esterase Negative Urine RBC 20 - 25 Urine WBC 1 - 3 Ur Epithelial Cells 4 - 5 Amorphous Sediment Few Urine Bacteria Many Coarse Granular Casts Trace H Urine Other Uyeast 01/18/18 01/18/18 14:48 14:48 WBC RBC Hgb Hct MCV MCH MCHC RDW Plt Count MPV Gran % Lymph % (Auto) [place] % (Auto) Eos % (Auto) Baso % (Auto) Gran # Lymph # (Auto) [place] # (Auto) Eos # (Auto) Baso # (Auto) Neutrophils % (Manual) Band Neutrophils % Lymphocytes % (Manual) Monocytes % (Manual) Platelet Evaluation Anisocytosis (manual) Microcytosis (manual) Ovalocytes PT INR APTT pO2 32 VBG pH 7.58 H VBG pCO2 28.0 L VBG HCO3 26.3 VBG Total CO2 27.2 VBG O2 Sat (Calc) 71.1 H VBG Base Excess 5.2 H VBG Potassium 2.7 L Sodium 144.0 143 Chloride 103.0 99 Glucose 186 H Lactate 7.8 H* FiO2 21.0 Potassium 2.2 L* D Carbon Dioxide 25 Anion Gap 21 H BUN 23 H Creatinine 0.9 Est GFR ( Amer) > 60 Est GFR (Non-Af Amer) > 60 Random Glucose 188 H Calcium 10.8 H Phosphorus 1.8 L Magnesium 1.8 Total Bilirubin 3.7 H AST 81 H D ALT 15 Alkaline Phosphatase 147 H D Total Protein 9.8 H Albumin 4.8 Globulin 5.0 Albumin/Globulin Ratio 1.0 L Venous Blood Potassium 2.7 L Urine Color Urine Appearance Urine pH Ur Specific [place] Urine Protein Urine Glucose (UA) Urine Ketones Urine Blood Urine Nitrate Urine Bilirubin Urine Urobilinogen Ur Leukocyte Esterase Urine RBC Urine WBC Ur Epithelial Cells Amorphous Sediment Urine Bacteria Coarse Granular Casts Urine Other - Imaging and Cardiology Chest x-ray Status: Image reviewed by me, Report reviewed by me Assessment & Plan - Assessment and Plan (Free Text) Assessment: 62yo female a/w severe sepsis Severe Sepsis Dehydration Hypokalemia Hx Breast Ca Fever AMS - currently hypertensive, febrile, given rectal tylenol, sinus tachcyardia 140s, awake, mentatiting, not able to follow commands - on exam neck is soft, full ROM, no photophobia, although does not rule out meningitis - Labs, imaging, chart reviewed Recommend: - supp o2 as needed, duonebs PRN, IS - panculture, UCx, BCx, Check Procal - may need LP - obtain CT A/P rule out intrabdominal source of infection - CT head without contrast - Merrem, Vanco, Flagyl - replete K - Fever control - FS control - IVF hydration - NPO - aspiration, seizure precautions - GI ppx - DVT ppx, HSQ - Admit to MICU Critical care time 40 minutes
[2018-01-18 18:13] LABS: OPIATES, UR NEGATIVE (NEGATIVE)
[2018-01-18] MEDS ORDERED: Vancomycin 1gm in NS 250ml 1 GM/250 ML BAG IVPB SCH (18:15)
[2018-01-18] MEDS ORDERED: Sodium Chloride 0.9% 500 ML IV STA (18:17)
[2018-01-18] MEDS ORDERED: Potassium Phosphate 30 MMOLE in Dextrose 5% In Water 250 ML IVPB ONE (18:20)
[2018-01-18] MEDS ORDERED: Magnesium Sulfate 1 gm in D5W 1 GM/100 ML BAG IVPB ONE (18:20)
--- NOTE | 2018-01-18 18:43 | CP.PCM.HP ---
<Harpal Mcginnis - Last Filed: 01/19/18 21:33> History of Present Illness - History of Present Illness History of Present Illness: Harpal Rahel PGY2 IM H&P Note for Dr. Anne cc: confused at home Ms. Strauss is a 62 year old F with a PMH of stage IV invasive ductal carcinoma/breast cancer with bone mets on chemotherapy (last session 1.5 wks ago at [facility]), MSSA bacteremia, HTN, CAD, and OA presenting to the [facility] ED altered from home because home health aide found her to be confused today. Dr. Anne contacted Ady Her (son-in-law; contact info listed under summary in Posibl.) and Riki Vazquez (other relative; [phone]) for more collateral information. They state that the patient lives at home with a 12hr home health aide, who found the patient to be more confused today but has been experiencing nausea/vomting/diarrhea x3 days, as well as decreased appetite. They state that the patient's last chemo infusion was 1.5 weeks ago at [facility]. Further HPI And ROS were attempted but are limited due to AMS. In ED, the patient was found to meet SIRS criteria of WBC and fever, so CODE SEPSIS was activated. Patient received IV antibiotics and fluid resuscitation. Per prior chart: PMHx: as above PSHx: right hip and ankle surgery last chemo: 1.5 week ago at [facility] and does not receive radiation SHx: denies smoking, EtOH, or illicits, lives alone in [place] w/ [facility] Meds: reviewed Allergies: NKDA PMD: Dr. Drake Oncologist: Dr. Charles - [facility] Present on Admission - Present on Admission Any Indicators Present on Admission: No Review of Systems - Review of Systems All systems: reviewed and no additional remarkable complaints except (as per HPI) Past Patient History - Infectious Disease Hx of Infectious Diseases: None - Tetanus Immunizations Tetanus Immunization: Unknown - Past Social History Smoking Status: Never Smoked Alcohol: None Drugs: Denies Home Situation {Lives}: Other - CARDIAC Hx Cardiac Disorders: No Hx Hypertension: Yes - PULMONARY Hx Respiratory Disorders: No - NEUROLOGICAL Hx Neurological Disorder: No - HEENT Hx HEENT Problems: No - RENAL Hx Chronic Kidney Disease: No - ENDOCRINE/METABOLIC Hx Endocrine Disorders: No - HEMATOLOGICAL/ONCOLOGICAL Hx Blood Transfusions: Yes Hx Blood Transfusion Reaction: No - INTEGUMENTARY Hx Dermatological Problems: No - MUSCULOSKELETAL/RHEUMATOLOGICAL Hx Falls: No - GASTROINTESTINAL Hx Gastrointestinal Disorders: No - GENITOURINARY/GYNECOLOGICAL Hx Genitourinary Disorders: No - PSYCHIATRIC Hx Anxiety: Yes Hx Substance Use: No - SURGICAL HISTORY Hx Mastectomy: No Other/Comment: stage 4 breast, bone ca - ANESTHESIA Hx Anesthesia Reactions: No Hx Malignant Hyperthermia: No Meds Allergies/Adverse Reactions: Allergies Allergy/AdvReac Type Severity Reaction Status Date / Time No Known Allergies Allergy Verified 07/28/17 11:57 Physical Exam - Constitutional Appears: No Acute Distress, Unkempt, Confused, Chronically Ill - Head Exam Head Exam: NORMAL INSPECTION - Eye Exam Eye Exam: EOMI, Normal appearance, PERRL - ENT Exam ENT Exam: Mucous Membranes Dry - Neck Exam Neck exam: Positive for: Normal Inspection. Negative for: Meningismus, Tenderness - Respiratory Exam Respiratory Exam: Clear to Auscultation Bilateral, NORMAL BREATHING PATTERN. absent: Rales, Wheezes, Respiratory Distress - Cardiovascular Exam Cardiovascular Exam: Tachycardia, +S1, +S2. absent: Systolic Murmur - GI/Abdominal Exam GI & Abdominal Exam: Normal Bowel Sounds, Soft, Tenderness (diffuse). absent: Distended, Guarding, Rigid - Exam Additional comments: macsorro in place - Extremities Exam Additional comments: muscle atrophy - Back Exam Back exam: NORMAL INSPECTION - Neurological Exam Neurological exam: Altered Additional comments: no motor sensory deficits following simple commands incomprehensible mumb - Psychiatric Exam Psychiatric exam: Agitated (but redirecetable), Anxious Results - Vital Signs Recent Vital Signs: Last Vital Signs Temp 100.2 F H 01/18/18 17:46 Pulse 136 H 01/18/18 17:46 Resp 20 01/18/18 17:46 BP 193/97 H 01/18/18 17:46 Pulse Ox 96 01/18/18 17:46 - Labs Result Diagrams: 01/18/18 14:48 01/18/18 14:48 Labs: Laboratory Results - last 24 hr 01/18/18 01/18/18 01/18/18 14:48 14:48 14:48 WBC 26.5 H* D RBC 4.55 Hgb 12.4 D Hct 36.9 MCV 81.1 D MCH 27.3 MCHC 33.6 RDW 14.9 H Plt Count 243 MPV 9.7 Gran % 85.9 H Lymph % (Auto) 2.9 L [place] % (Auto) 11.2 H Eos % (Auto) 0.0 L Baso % (Auto) 0.0 Gran # 22.75 H Lymph # (Auto) 0.8 L [place] # (Auto) 3.0 H Eos # (Auto) 0.0 Baso # (Auto) 0.01 Neutrophils % (Manual) 83 H Band Neutrophils % 4 H Lymphocytes % (Manual) 6 L Monocytes % (Manual) 7 H Platelet Evaluation Normal Anisocytosis (manual) 1+ Microcytosis (manual) 1+ Ovalocytes Slight PT 19.6 H INR 1.70 APTT 31.4 pO2 VBG pH VBG pCO2 VBG HCO3 VBG Total CO2 VBG O2 Sat (Calc) VBG Base Excess VBG Potassium Sodium Chloride Glucose Lactate FiO2 Potassium Carbon Dioxide Anion Gap BUN Creatinine Est GFR ( Amer) Est GFR (Non-Af Amer) Random Glucose Calcium Phosphorus Magnesium Total Bilirubin AST ALT Alkaline Phosphatase Total Protein Albumin Globulin Albumin/Globulin Ratio Venous Blood Potassium Urine Color Dark yellow Urine Appearance Sl cloudy Urine pH 6.0 Ur Specific [place] >= 1.030 Urine Protein >=300 H Urine Glucose (UA) Negative Urine Ketones Negative Urine Blood Large H Urine Nitrate Negative Urine Bilirubin Negative Urine Urobilinogen 0.2 Ur Leukocyte Esterase Negative Urine RBC 20 - 25 Urine WBC 1 - 3 Ur Epithelial Cells 4 - 5 Amorphous Sediment Few Urine Bacteria Many Coarse Granular Casts Trace H Urine Other Uyeast Urine Opiates Screen Urine Methadone Screen 01/18/18 01/18/18 01/18/18 14:48 14:48 17:22 WBC RBC Hgb Hct MCV MCH MCHC RDW Plt Count MPV Gran % Lymph % (Auto) [place] % (Auto) Eos % (Auto) Baso % (Auto) Gran # Lymph # (Auto) [place] # (Auto) Eos # (Auto) Baso # (Auto) Neutrophils % (Manual) Band Neutrophils % Lymphocytes % (Manual) Monocytes % (Manual) Platelet Evaluation Anisocytosis (manual) Microcytosis (manual) Ovalocytes PT INR APTT pO2 32 51 VBG pH 7.58 H 7.61 H VBG pCO2 28.0 L 24.0 L VBG HCO3 26.3 24.1 VBG Total CO2 27.2 24.8 VBG O2 Sat (Calc) 71.1 H 93.3 H VBG Base Excess 5.2 H 4.0 H VBG Potassium 2.7 L 2.1 L* Sodium 144.0 143 143.0 Chloride 103.0 99 107.0 Glucose 186 H 145 H Lactate 7.8 H* 5.1 H* FiO2 21.0 21.0 Potassium 2.2 L* D Carbon Dioxide 25 Anion Gap 21 H BUN 23 H Creatinine 0.9 Est GFR ( Amer) > 60 Est GFR (Non-Af Amer) > 60 Random Glucose 188 H Calcium 10.8 H Phosphorus 1.8 L Magnesium 1.8 Total Bilirubin 3.7 H AST 81 H D ALT 15 Alkaline Phosphatase 147 H D Total Protein 9.8 H Albumin 4.8 Globulin 5.0 Albumin/Globulin Ratio 1.0 L Venous Blood Potassium 2.7 L 2.1 L* Urine Color Urine Appearance Urine pH Ur Specific [place] Urine Protein Urine Glucose (UA) Urine Ketones Urine Blood Urine Nitrate Urine Bilirubin Urine Urobilinogen Ur Leukocyte Esterase Urine RBC Urine WBC Ur Epithelial Cells Amorphous Sediment Urine Bacteria Coarse Granular Casts Urine Other Urine Opiates Screen Urine Methadone Screen 01/18/18 17:49 WBC RBC Hgb Hct MCV MCH MCHC RDW Plt Count MPV Gran % Lymph % (Auto) [place] % (Auto) Eos % (Auto) Baso % (Auto) Gran # Lymph # (Auto) [place] # (Auto) Eos # (Auto) Baso # (Auto) Neutrophils % (Manual) Band Neutrophils % Lymphocytes % (Manual) Monocytes % (Manual) Platelet Evaluation Anisocytosis (manual) Microcytosis (manual) Ovalocytes PT INR APTT pO2 VBG pH VBG pCO2 VBG HCO3 VBG Total CO2 VBG O2 Sat (Calc) VBG Base Excess VBG Potassium Sodium Chloride Glucose Lactate FiO2 Potassium Carbon Dioxide Anion Gap BUN Creatinine Est GFR ( Amer) Est GFR (Non-Af Amer) Random Glucose Calcium Phosphorus Magnesium Total Bilirubin AST ALT Alkaline Phosphatase Total Protein Albumin Globulin Albumin/Globulin Ratio Venous Blood Potassium Urine Color Urine Appearance Urine pH Ur Specific [place] Urine Protein Urine Glucose (UA) Urine Ketones Urine Blood Urine Nitrate Urine Bilirubin Urine Urobilinogen Ur Leukocyte Esterase Urine RBC Urine WBC Ur Epithelial Cells Amorphous Sediment Urine Bacteria Coarse Granular Casts Urine Other Urine Opiates Screen Negative Urine Methadone Screen Negative Assessment & Plan - Assessment and Plan (Free Text) Assessment: 62 year old F with a PMH of stage IV invasive ductal carcinoma/breast cancer with bone mets on chemotherapy (last session 1.5 wks ago at [facility]), MSSA bacteremia, HTN, CAD, and OA presenting to the [facility] ED altered from home because home health aide found her to be confused today. CODE SEPSIS was activated and patient is in severe sepsis w/ lactic acid. Infectious causes will be evaluated. Meningitis is unlikely given that patient moves neck w/o discomfort. Neurovascular causes of AMS are also being investigated with CT Head. CT abdomen will be ordered to r/o bowel etiology. Plan: Neuro altered, unknown baseline monitor for changes neurochecks call collaterals listed in HPI for more information maintain normothermia CT Head ordered CV maintain MAP > 65 cont NS @ 100 Prior Echo (06/2017) was reviewed w/ sufficient EF DVT ppx Pulm O2 PRN maintain SaO2>92% HOB > 30deg GI NPO except meds nurse bedside swallow eval prior to starting diet GI ppx CT abodem/pelvis ordered Renal mascorro in place monitor urine output mag/potassium supplemented f/u BMP for further supplementation needs UA showing dehydration ID Zosyn started ID consulted blood and urine cultures ordered procal ordered Heme leukocytosis noted, likely due to infection w/ dehydration Endo maintain euglycemia PPX/Diet PTX/Lovenox Case was reviewed and discussed with attending, Dr. Dayana Mcginnis PGY2 <Fabiola Anne - Last Filed: 01/27/18 16:38> Results - Vital Signs Recent Vital Signs: Last Vital Signs Temp 98.5 F 01/27/18 12:00 Pulse 79 01/27/18 12:00 Resp 94 H 01/27/18 12:00 BP 113/69 01/27/18 12:00 Pulse Ox 99 01/27/18 06:00 - Labs Result Diagrams: 01/27/18 11:30 01/27/18 11:30 Labs: Laboratory Results - last 24 hr 01/27/18 01/27/18 11:30 11:30 WBC 16.6 H D RBC 3.39 L Hgb 9.4 L Hct 29.5 L MCV 87.0 MCH 27.7 MCHC 31.9 RDW 17.7 H Plt Count 344 MPV 9.6 Gran % 64.4 Lymph % (Auto) 22.1 [place] % (Auto) 7.3 H Eos % (Auto) 5.9 H Baso % (Auto) 0.3 Gran # 10.71 H Lymph # (Auto) 3.7 H [place] # (Auto) 1.2 H Eos # (Auto) 1.0 H Baso # (Auto) 0.05 Sodium 134 Potassium 3.8 Chloride 102 Carbon Dioxide 25 Anion Gap 11 BUN 8 Creatinine 0.7 Est GFR ( Amer) > 60 Est GFR (Non-Af Amer) > 60 Random Glucose 136 H Calcium 8.7 Phosphorus 3.2 Magnesium 1.9 Total Bilirubin 0.8 AST 51 H ALT 35 Alkaline Phosphatase 82 Total Protein 7.0 Albumin 3.2 Globulin 3.8 Albumin/Globulin Ratio 0.8 L Attending/Attestation - Attestation I have personally seen and examined this patient.: Yes I have fully participated in the care of the patient.: Yes I have reviewed all pertinent clinical information: Yes Notes (Text): 01/27/18 16:35 attending note; Patient seen and examined with resident in ER. Patient is confused. History from the chart review and from family members. alert and awake. Confused. Not able to answer questions. Patient is a 62 year old Female with PMH of stage IV invasive ductal carcinoma/breast cancer with bone mets on chemotherapy (last session 1.5 wks ago at [facility]), MSSA bacteremia, HTN, CAD, history of right hip fracture and ankle fracture is admitted for altered mental status. Patient was found confused by home health aide. Home health aide called patient's son-in-law. Patient was brought to the ER. Patient was found to be confused and agitated. Code sepsis was called. Severe sepsis with lactic acidosis; blood culture showed gram-positive bacteremia. Started on ampicillin, vancomycin and IV acyclovir. Patient with history of recurrent bacteremia in the past. ID evaluation requested. CT head is negative. History of diarrhea ;CT abdomen and pelvis ordered. History of metastatic breast CA. Patient gets therapy at [facility]. According to the patient's son-in-law she got IV infusion 1 1/2 weeks ago. Hypokalemia; continue potassium supplementation. Prognosis is poor. case discussed with import export manager in detail. Patient will be closely monitored in ICU. Patient next of kin Ady Her and Riki Strauss informed about the patient's medical condition. 01/27/18 16:38
[2018-01-18] MEDS ORDERED: Sodium Chloride 0.9% 1,000 ML IV SCH (18:45)
[2018-01-18 18:56] LABS: BARBITURATES, UR NEGATIVE (NEGATIVE); BENZODIAZEPINES, UR NEGATIVE (NEGATIVE); PHENCYCLIDINE, UR NEGATIVE (NEGATIVE)
--- NOTE | 2018-01-18 18:59 | PCM.SEPTIC ---
Sepsis Progress Note - Reassessment Type Date of Evaluation: 01/18/18 Time of Evaluation: 17:57 Reassessment Type: Non-invasive reassessment - Non Invasive Reassessment Were the most recent vital sign reviewed: Yes Vital Sign (Latest): Temp Pulse Resp BP Pulse Ox 100.2 F H 136 H 20 193/97 H 96 01/18/18 17:46 01/18/18 17:46 01/18/18 17:46 01/18/18 17:46 01/18/18 17:46 Cardiovascular: Yes: Tachycardia Respiratory: Yes: Normal Breath Sounds. No: Decreased Breath Sounds, Accessory Muscle Use, Rales, Wheezing, Respiratory Distress Capillary Refill: Normal (Less than 2 sec) Pulses: Normal Radial Skin: Normal Color, Rash (clavicular) - Invasive Reassessment (complete 2 of 4) Was a Central Venous Pressure Measurement obtained within 6 Hours after the presentation of septic shock: No Was a central venous oxygen measurement obtained within 6 hours after the presentation of septic shock: No
[2018-01-18] MEDS: Piperacillin/Tazobact 3.375 gm 100 ML IVPB SCH (20:00)
[2018-01-18] MEDS ORDERED: Metoprolol 1 mg/ml Inj IVP STA (23:02)
[2018-01-18 23:13] LABS: BLOOD UREA NITROGEN 19 mg/dL (7-21); CALCIUM 9.6 mg/dL (8.4-10.5); GFR NON-AFRICAN AMERICAN > 60
[2018-01-18] MEDS: Sodium Chloride 0.9% 1,000 ML IV SCH (23:15)
[2018-01-19] MEDS: Vancomycin 1gm in NS 250ml 1 GM/250 ML BAG IVPB SCH ×3 (00:26→22:43)
[2018-01-19] MEDS: Piperacillin/Tazobact 3.375 gm 100 ML IVPB SCH (00:37)
[2018-01-19 02:02] VITALS: BMI 23.9
[2018-01-19] MEDS ORDERED: Metoprolol 1 mg/ml Inj IVP STA (02:06)
[2018-01-19] MEDS ORDERED: Piperacillin/Tazobact 3.375 gm 100 ML IVPB SCH (06:00)
[2018-01-19 06:11] LABS: BASO # 0.02 K/mm3 (0.0-2.0); BASO % 0.1 % (0.0-3.0); GRAN # 26.38 (1.4-6.5); GRAN % 85.7 % (50.0-68.0); LYMPH # 1.2 (1.2-3.4); MEAN CELL VOLUME 80.8 fl (80.0-105.0); MEAN CORPUSCULAR HEMOGLOBIN 27.5 pg (25.0-35.0); MEAN PLATELET VOLUME 9.9 fl (7.0-11.0); MONO # 3.1 (0.1-0.6); MONO % 10.2 % (1.0-6.0); RBC 4.37 10^6/uL (3.5-6.1); RED CELL DISTRIBUTION WIDTH 15.2 % (11.5-14.5)
[2018-01-19 06:18] LABS: WHITE BLOOD COUNT 30.8 10^3/ul (4.5-11.0)
[2018-01-19 06:19] LABS: INR 1.85; PARTIAL THROMBOPLASTIN TIME 32.4 Seconds (25.1-36.5); PROTHROMBIN TIME 21.6 SECONDS (9.4-12.5)
--- NOTE | 2018-01-19 07:08 | CP.PCM.PN ---
Objective - Vital Signs/Intake and Output Vital Signs (last 24 hours): Temp Pulse Resp BP Pulse Ox 100.6 F H 144 H 24 156/95 H 88 L 01/18/18 22:11 01/19/18 02:16 01/18/18 22:11 01/19/18 02:16 01/18/18 21:40 Intake and Output: 01/19/18 01/19/18 06:59 18:59 Output Total 1200 Balance -1200 - Medications Medications: Current Medications Acetaminophen (Tylenol 325mg Tab) 650 mg PO Q4 PRN PRN Reason: Fever >100.4 F Aspirin (Aspirin Chewable) 81 mg PO DAILY [facility] Clopidogrel Bisulfate (Plavix) 75 mg PO DAILY [facility] Docusate Sodium (Colace) 100 mg PO TID [facility] Enoxaparin Sodium (Lovenox) 40 mg SC DAILY [facility]; Protocol Famotidine (Pepcid) 20 mg PO HS [facility] Furosemide (Lasix) 20 mg PO DAILY [facility] Gabapentin (Neurontin) 300 mg PO TID [facility]; Protocol Hydralazine HCl (Apresoline) 50 mg PO TID [facility] Vancomycin HCl (Vancomycin 1gm) 1 gm in 250 mls @ 167 mls/hr IVPB Q12 [facility]; Protocol Last Admin: 01/19/18 00:26 Dose: 167 mls/hr Sodium Chloride (Sodium Chloride 0.9%) 1,000 mls @ 125 mls/hr IV .Q8H [facility] Last Admin: 01/18/18 23:15 Dose: 125 mls/hr Acetaminophen (Ofirmev) 1,000 mg in 100 mls @ 400 mls/hr IVPB Q6H PRN PRN Reason: Pain, moderate (4-7) Stop: 01/21/18 01:05 Last Admin: 01/19/18 01:15 Dose: 400 mls/hr Piperacillin Sod/Tazobactam Sod (Zosyn 3.375 In Ns 100ml) 100 mls @ 200 mls/hr IVPB Q6 [facility]; Protocol Stop: 01/19/18 12:29 Last Admin: 01/19/18 06:05 Dose: 200 mls/hr Lisinopril (Zestril) 10 mg PO DAILY [facility] Lorazepam (Ativan) 1 mg IVP Q6 PRN; Protocol PRN Reason: Anxiety Last Admin: 01/18/18 19:55 Dose: 1 mg Metoprolol Tartrate (Lopressor) 50 mg PO BID [facility] Oxycodone HCl (Oxycodone Immediate Release Tab) 30 mg PO Q6H PRN PRN Reason: Pain, severe (8-10) Pantoprazole Sodium (Protonix Inj) 40 mg IVP DAILY [facility] - Labs Labs: 01/19/18 05:00 01/18/18 22:52 PT 21.6 SECONDS (9.4-12.5) H 01/19/18 05:00 INR 1.85 01/19/18 05:00 APTT 32.4 Seconds (25.1-36.5) 01/19/18 05:00
[2018-01-19] MEDS: Meropenem IV 1 gm in NS 1 GM/50 ML BAG IVPB SCH ×3 (07:34→21:52)
--- NOTE | 2018-01-19 08:05 | CP.PCM.PN ---
<[place] - Last Filed: 01/19/18 10:24> Subjective - Date & Time of Evaluation Date of Evaluation: 01/19/18 Time of Evaluation: 08:02 - Subjective Subjective: PGY-[address] Anne. No acute events overnight. Patient was afebrile overnight (Tmax 102). She was restless today and asking about her - who sometime ago. She was able to state her name and knew we were doctors. Denied being in any pain however appeared restless. Objective - Vital Signs/Intake and Output Vital Signs (last 24 hours): Temp Pulse Resp BP Pulse Ox 99.3 F 132 H 28 H 161/102 H 92 L 01/19/18 06:00 01/19/18 06:00 01/19/18 05:30 01/19/18 06:00 01/19/18 06:00 Intake and Output: 01/19/18 01/19/18 06:59 18:59 Intake Total 2810 Output Total 3350 Balance -540 - Medications Medications: Current Medications Acetaminophen (Tylenol 325mg Tab) 650 mg PO Q4 PRN PRN Reason: Fever >100.4 F Aspirin (Aspirin Chewable) 81 mg PO DAILY [facility] Clopidogrel Bisulfate (Plavix) 75 mg PO DAILY [facility] Docusate Sodium (Colace) 100 mg PO TID [facility] Enoxaparin Sodium (Lovenox) 40 mg SC DAILY [facility]; Protocol Famotidine (Pepcid) 20 mg PO HS [facility] Furosemide (Lasix) 20 mg PO DAILY [facility] Gabapentin (Neurontin) 300 mg PO TID [facility]; Protocol Hydralazine HCl (Apresoline) 50 mg PO TID [facility] Vancomycin HCl (Vancomycin 1gm) 1 gm in 250 mls @ 167 mls/hr IVPB Q12 [facility]; P rotocol Last Admin: 01/19/18 00:26 Dose: 167 mls/hr Sodium Chloride (Sodium Chloride 0.9%) 1,000 mls @ 125 mls/hr IV .Q8H [facility] Last Admin: 01/18/18 23:15 Dose: 125 mls/hr Acetaminophen (Ofirmev) 1,000 mg in 100 mls @ 400 mls/hr IVPB Q6H PRN PRN Reason: Pain, moderate (4-7) Stop: 10/09/18 01:05 Last Admin: 01/19/18 01:15 Dose: 400 mls/hr Meropenem (Merrem Iv 1 Gm Premix) 1 gm in 50 mls @ 100 mls/hr IVPB Q8 [facility]; Protocol Last Admin: 01/19/18 07:34 Dose: 100 mls/hr Acyclovir 600 mg/ Sodium (Chloride) 100 mls @ 100 mls/hr IV Q8 [facility]; Protocol Ampicillin 2 gm/ Sodium (Chloride) 100 mls @ 200 mls/hr IVPB Q6 [facility]; Protocol Lisinopril (Zestril) 10 mg PO DAILY [facility] Lorazepam (Ativan) 1 mg IVP Q6 PRN; Protocol PRN Reason: Anxiety Last Admin: 01/18/18 19:55 Dose: 1 mg Metoprolol Tartrate (Lopressor) 50 mg PO BID [facility] Oseltamivir Phosphate (Tamiflu Susp) 75 mg PO BID [facility]; Protocol Stop: 01/24/18 07:31 Oxycodone HCl (Oxycodone Immediate Release Tab) 30 mg PO Q6H PRN PRN Reason: Pain, severe (8-10) Pantoprazole Sodium (Protonix Inj) 40 mg IVP DAILY [facility] - Labs Labs: 01/19/18 05:00 01/18/18 22:52 PT 21.6 SECONDS (9.4-12.5) H 01/19/18 05:00 INR 1.85 01/19/18 05:00 APTT 32.4 Seconds (25.1-36.5) 01/19/18 05:00 - Additional Findings Additional findings: - Constitutional Appears: No Acute Distress, Unkempt, Confused, Chronically Ill - Head Exam Head Exam: NORMAL INSPECTION - Eye Exam Eye Exam: EOMI, Normal appearance, PERRL - ENT Exam ENT Exam: Mucous Membranes Dry - Neck Exam Neck exam: Positive for: Normal Inspection. Negative for: Meningismus, Tenderness - Respiratory Exam Respiratory Exam: Clear to Auscultation Bilateral, NORMAL BREATHING PATTERN. absent: Rales, Wheezes, Respiratory Distress - Cardiovascular Exam Cardiovascular Exam: Tachycardia, +S1, +S2. absent: Systolic Murmur - GI/Abdominal Exam GI & Abdominal Exam: Normal Bowel Sounds, Soft, Tenderness (diffuse). absent: D istended, Guarding, Rigid - Exam Additional comments: mascorro in place - Extremities Exam Additional comments: muscle atrophy - Back Exam Back exam: NORMAL INSPECTION - Neurological Exam Neurological exam: Altered Additional comments: no motor sensory deficits following simple commands - Psychiatric Exam Psychiatric exam: Agitated (but redirecetable), Anxious Assessment and Plan - Assessment and Plan (Free Text) Plan: 62 year old F with a PMH of stage IV invasive ductal carcinoma/breast cancer wit h bone mets on chemotherapy (last session 1.5 wks ago at [facility]), MSSA bacteremia, HTN, CAD, and OA presenting [place] [facility] altered from home because home health aide found her to be confused today. CODE SEPSIS was activated and patient is in severe sepsis w/ lactic acid: Plan: ID -On admission -> severe sepsis w/ elevated lactic of 7.8 -Bacteremia -> gram positive cocci in blood from blood cx collected on 01/18, sensitivity pending -Tmax of 102.8 on admission, no afebrile * Ofirmev 1g ivpb q6h for fever control -ID consulted, Dr Romero -f/u urine culture, procal -Flu negative -CXR shows no active disease -Acyclovir 600mg iv q8h -Ampicillin 2g ivpb q6h -Meropenem 1g ivpb q8h -Oseltamivir 75mg po bid -Vancomycin 1g ivpb q12h * Kidney function is normal * F/u vanco trough before 4th dose Neuro -altered, unknown baseline, possibly due to her current state of severe sepsis and/or electrolyte abnormalities (K+ was 2.2 on admission) -call collaterals listed in HPI for more information -UDS negative -CT Head -> no acute intracranial findings -Meningitis is unlikely given that patient moves neck w/o discomfort -Seizure precautions, aspiration precautions, medical restraint for patient safety as patient was pulling on lines -Ativan 1mg ivp q6h prn for anxiety CV -Has been hypertensive at times -maintain MAP > 65 -cont NS @ 120 -Prior Echo (06/2017) showed EF of 40% w/ global hypokinesis of LV and abnormal relaxation pattern -DVT ppx -Continue home aspirin 81mg po qd -Continue home plavix 75mg po qd -Continue home hydralazine 50mg po tid -Continue home lisinopril 10mg po qd -Continue home metoprolol tartrate 50mg po bid Pulm -O2 PRN -maintain SaO2>92% -HOB > 30deg -Blood gas indicative of respiratory alkalosis -CXR shows no active disease GI -Patient had emesis and diarrhea 3 days prior to presentation -AST/ALT 81/15 on admission -NPO except meds until swallow eval -FOBT positive -GI ppx -CT abodem/pelvis ordered, f/u report -GI consulted, Dr Briggs -F/u cdiff toxin and antigen Renal -mascorro in place -monitor urine output -severely hypokalemic (patient had emesis and diarrhea for days prior to presentation) -mag/potassium supplemented -f/u BMP for further supplementation needs -UA showing dehydration Heme/Onc -leukocytosis noted, likely due to infection w/ dehydration, patient also takes steroids at home -Hx of breast cancer with mets to bone -last chemo infusion was 1.5 weeks ago at [facility] -Continue home oxycodone 30mg po q6h prn for pain Endo -maintain euglycemia -continue home gabapentin 300mg po tid PPX/Diet -PTX/Lovenox -NPO for now Case was reviewed and discussed with attending, Dr. Anne <Fabiola Anne - Last Filed: 01/19/18 15:52> Objective - Vital Signs/Intake and Output Vital Signs (last 24 hours): Temp Pulse Resp BP Pulse Ox 100.0 F H 132 H 81 H 157/88 H 98 01/19/18 15:10 01/19/18 15:10 01/19/18 15:10 01/19/18 15:00 01/19/18 15:10 Intake and Output: 01/19/18 01/19/18 06:59 18:59 Intake Total 2810 Output Total 3350 Balance -540 - Medications Medications: Current Medications Acetaminophen (Tylenol 325mg Tab) 650 mg PO Q4 PRN PRN Reason: Fever >100.4 F Aspirin (Aspirin Chewable) 81 mg PO DAILY [facility] Last Admin: 01/19/18 10:04 Dose: Not Given Clopidogrel Bisulfate (Plavix) 75 mg PO DAILY [facility] Last Admin: 01/19/18 10:04 Dose: Not Given Docusate Sodium (Colace) 100 mg PO TID [facility] Last Admin: 01/19/18 13:22 Dose: Not Given Gabapentin (Neurontin) 300 mg PO TID [facility]; Protocol Last Admin: 01/19/18 13:53 Dose: Not Given Hydralazine HCl (Apresoline) 50 mg PO TID [facility] Last Admin: 01/19/18 10:04 Dose: Not Given Hydralazine HCl (Apresoline) 10 mg IVP Q6 PRN PRN Reason: for SBP>160 Last Admin: 01/19/18 14:32 Dose: 10 mg Vancomycin HCl (Vancomycin 1gm) 1 gm in 250 mls @ 167 mls/hr IVPB Q12 [facility]; Protocol Last Admin: 01/19/18 10:09 Dose: 167 mls/hr Sodium Chloride (Sodium Chloride 0.9%) 1,000 mls @ 125 mls/hr IV .Q8H [facility] Last Admin: 01/19/18 08:40 Dose: 125 mls/hr Acetaminophen (Ofirmev) 1,000 mg in 100 mls @ 400 mls/hr IVPB Q6H PRN PRN Reason: Pain, moderate (4-7) Stop: 01/21/18 01:05 Last Admin: 01/19/18 01:15 Dose: 400 mls/hr Meropenem (Merrem Iv 1 Gm Premix) 1 gm in 50 mls @ 100 mls/hr IVPB Q8 [facility]; Protocol Last Admin: 01/19/18 13:50 Dose: 100 mls/hr Acyclovir 600 mg/ Sodium (Chloride) 100 mls @ 100 mls/hr IV Q8 [facility]; Protocol Last Admin: 01/19/18 14:47 Dose: 100 mls/hr Ampicillin 2 gm/ Sodium (Chloride) 100 mls @ 200 mls/hr IVPB Q6 [facility]; Protocol Last Admin: 01/19/18 12:46 Dose: 200 mls/hr Potassium Chloride (Potassium Chloride 10 Meq/100 Ml) 10 meq in 100 mls @ 10 mls/hr IVPB Q2H [facility] Stop: 01/19/18 20:29 Last Admin: 01/19/18 13:49 Dose: 10 mls/hr Heparin Sodium/Sodium Chloride (Heparin 18399 Units/250ml 1/2 Normal Saline) 25,000 units in 250 mls @ 8 mls/hr IV .Q24H [facility]; Protocol Lisinopril (Zestril) 10 mg PO DAILY [facility] Last Admin: 01/19/18 10:05 Dose: Not Given Lorazepam (Ativan) 1 mg IVP Q6 PRN; Protocol PRN Reason: Anxiety Last Admin: 01/19/18 10:33 Dose: 1 mg Metoprolol Tartrate (Lopressor) 5 mg IVP Q6H [facility] Last Admin: 01/19/18 12:42 Dose: 5 mg Oseltamivir Phosphate (Tamiflu Susp) 75 mg PO BID [facility]; Protocol Stop: 01/24/18 07:31 Last Admin: 01/19/18 08:36 Dose: Not Given Oxycodone HCl (Oxycodone Immediate Release Tab) 30 mg PO Q6H PRN PRN Reason: Pain, severe (8-10) Pantoprazole Sodium (Protonix Inj) 40 mg IVP DAILY [facility] Last Admin: 01/19/18 10:08 Dose: 40 mg - Labs Labs: 01/19/18 05:00 01/19/18 05:00 PT 21.6 SECONDS (9.4-12.5) H 01/19/18 05:00 INR 1.85 01/19/18 05:00 APTT 32.4 Seconds (25.1-36.5) 01/19/18 05:00 Attending/Attestation - Attestation I have personally seen and examined this patient.: Yes I have fully participated in the care of the patient.: Yes I have reviewed all pertinent clinical information, including history, physical exam and plan: Yes Notes (Text): 01/19/18 15:39 Attending note; Patient seen and examined with resident in ICU. Patient is currently alert and awake. Confused. Not able to answer questions. The recall the extremities. Patient is a 62 year old Female with PMH of stage IV invasive ductal carcinoma/breast cancer with bone mets on chemotherapy (last session 1.5 wks ago at [facility]), MSSA bacteremia, HTN, CAD, history of right hip fracture and ankle fracture is admitted for altered mental status. Patient was found confused by home health aide. Home health aide called patient's son-in-law. Patient was brought to the ER. Patient was found to be confused and agitated. Code sepsis was called. Severe sepsis with lactic acidosis; blood culture showed gram-positive bacteremia. Started on ampicillin, vancomycin and IV acyclovir. Patient with history of recurrent bacteremia in the past. ID evaluation appreciated. CT head is negative. History of diarrhea ;CT abdomen and pelvis showed distention of the stomach and duodenum possible gastroparesis or partial obstruction. Esophagitis noted. GI evaluation requested. History of metastatic breast CA. Patient gets therapy at [facility]. According to the patient's son-in-law she got IV infusion 1 1/2 weeks ago. We will get information from [facility]. Hypokalemia; continue potassium supplementation. Persistent tachycardia with elevated troponin. Cardiology evaluation with Dr. Perry requested. EKG showed ST elevation changes. Started on aspirin, Plavix and IV heparin drip. Continue IV lisinopril and metoprolol. Prognosis is poor. Patient next of kin Ady Her and Riki Strauss informed about the patient's medical condition.
[2018-01-19] MEDS ORDERED: Sodium Phosphate 15 MMOLE in Dextrose 5% In Water 250 ML IVPB ONE (08:20)
[2018-01-19] MEDS: Oseltamivir 6 MG/ML PO SCH ×2 (08:36→17:38)
[2018-01-19] MEDS: Sodium Chloride 0.9% 1,000 ML IV SCH ×2 (08:40→17:48)
[2018-01-19] MEDS ORDERED: Sodium Chloride 0.9% 1,000 ML IV STA ×2 (09:20→17:15)
--- NOTE | 2018-01-19 09:56 | CT ---
Date of service: 01/18/2018 PROCEDURE: CT HEAD WITHOUT CONTRAST. HISTORY: altered mentation COMPARISON: None available. TECHNIQUE: Axial computed tomography images were obtained through the head/brain without intravenous contrast. Radiation dose: Total exam DLP = 963 mGy-cm. This CT exam was performed using one or more of the following dose reduction techniques: Automated exposure control, adjustment of the mA and/or kV according to patient size, and/or use of iterative reconstruction technique. FINDINGS: HEMORRHAGE: No intracranial hemorrhage. BRAIN: No mass effect or edema. Chronic microvascular changes in the periventricular white matter right greater than left VENTRICLES: Unremarkable. No hydrocephalus. CALVARIUM: Unremarkable. PARANASAL SINUSES: Unremarkable as visualized. No significant inflammatory changes. MASTOID AIR CELLS: Unremarkable as visualized. No inflammatory changes. OTHER FINDINGS: The report concurs with the preliminary [facility] report IMPRESSION: No acute intracranial findings
[2018-01-19] MEDS ORDERED: Enoxaparin 40 mg Syringe SC SCH (10:00)
--- NOTE | 2018-01-19 10:15 | CP.PCM.PN ---
Subjective - Date & Time of Evaluation Date of Evaluation: 01/19/18 Time of Evaluation: 07:40 - Subjective Subjective: Patient seen and examined on rounds, continues to be altered, tachycardic. Blood cultures, GPC+ bacteremia, sensitivity pending. Objective - Vital Signs/Intake and Output Vital Signs (last 24 hours): Temp Pulse Resp BP Pulse Ox 99.3 F 132 H 28 H 161/102 H 92 L 01/19/18 06:00 01/19/18 06:00 01/19/18 05:30 01/19/18 06:00 01/19/18 06:00 Intake and Output: 01/19/18 01/19/18 06:59 18:59 Intake Total 2810 Output Total 3350 Balance -540 - Medications Medications: Current Medications Acetaminophen (Tylenol 325mg Tab) 650 mg PO Q4 PRN PRN Reason: Fever >100.4 F Aspirin (Aspirin Chewable) 81 mg PO DAILY [facility] Last Admin: 01/19/18 10:04 Dose: Not Given Clopidogrel Bisulfate (Plavix) 75 mg PO DAILY [facility] Last Admin: 01/19/18 10:04 Dose: Not Given Docusate Sodium (Colace) 100 mg PO TID [facility] Last Admin: 01/19/18 10:04 Dose: Not Given Enoxaparin Sodium (Lovenox) 40 mg SC DAILY [facility]; Protocol Famotidine (Pepcid) 20 mg PO HS [facility] Gabapentin (Neurontin) 300 mg PO TID [facility]; Protocol Last Admin: 01/19/18 10:04 Dose: Not Given Hydralazine HCl (Apresoline) 50 mg PO TID [facility] Last Admin: 01/19/18 10:04 Dose: Not Given Vancomycin HCl (Vancomycin 1gm) 1 gm in 250 mls @ 167 mls/hr IVPB Q12 [facility]; Protocol Last Admin: 01/19/18 00:26 Dose: 167 mls/hr Sodium Chloride (Sodium Chloride 0.9%) 1,000 mls @ 125 mls/hr IV .Q8H [facility] Last Admin: 01/19/18 08:40 Dose: 125 mls/hr Acetaminophen (Ofirmev) 1,000 mg in 100 mls @ 400 mls/hr IVPB Q6H PRN PRN Reason: Pain, moderate (4-7) Stop: 01/21/18 01:05 Last Admin: 01/19/18 01:15 Dose: 400 mls/hr Meropenem (Merrem Iv 1 Gm Premix) 1 gm in 50 mls @ 100 mls/hr IVPB Q8 [facility]; Protocol Last Admin: 01/19/18 07:34 Dose: 100 mls/hr Acyclovir 600 mg/ Sodium (Chloride) 100 mls @ 100 mls/hr IV Q8 [facility]; Protocol Ampicillin 2 gm/ Sodium (Chloride) 100 mls @ 200 mls/hr IVPB Q6 [facility]; Protocol Potassium Chloride (Potassium Chloride 10 Meq/100 Ml) 10 meq in 100 mls @ 10 mls/hr IVPB Q2H [facility] Stop: 01/19/18 20:29 Last Admin: 01/19/18 09:50 Dose: 10 mls/hr Sodium Phosphate 15 mmole/ (Dextrose) 255 mls @ 42.5 mls/hr IVPB ONCE ONE Stop: 01/19/18 14:19 Last Admin: 01/19/18 09:50 Dose: 42.5 mls/hr Sodium Chloride (Sodium Chloride 0.9%) 1,000 mls @ 999 mls/hr IV .Q1H1M STA Stop: 01/19/18 10:20 Last Admin: 01/19/18 09:35 Dose: 999 mls/hr Lisinopril (Zestril) 10 mg PO DAILY [facility] Last Admin: 01/19/18 10:05 Dose: Not Given Lorazepam (Ativan) 1 mg IVP Q6 PRN; Protocol PRN Reason: Anxiety Last Admin: 01/18/18 19:55 Dose: 1 mg Metoprolol Tartrate (Lopressor) 50 mg PO BID [facility] Last Admin: 01/19/18 10:04 Dose: Not Given Oseltamivir Phosphate (Tamiflu Susp) 75 mg PO BID [facility]; Protocol Stop: 01/24/18 07:31 Last Admin: 01/19/18 08:36 Dose: Not Given Oxycodone HCl (Oxycodone Immediate Release Tab) 30 mg PO Q6H PRN PRN Reason: Pain, severe (8-10) Pantoprazole Sodium (Protonix Inj) 40 mg IVP DAILY [facility] - Labs Labs: 01/19/18 05:00 01/19/18 05:00 PT 21.6 SECONDS (9.4-12.5) H 01/19/18 05:00 INR 1.85 01/19/18 05:00 APTT 32.4 Seconds (25.1-36.5) 01/19/18 05:00 - Constitutional Appears: No Acute Distress, Older Than Stated Age, Confused, Cachectic, Chronically Ill - Head Exam Head Exam: NORMAL INSPECTION - Eye Exam Eye Exam: Normal appearance - ENT Exam ENT Exam: Mucous Membranes Dry - Neck Exam Neck Exam: Full ROM Additional comments: +supple - Respiratory Exam Respiratory Exam: Clear to Ausculation Bilateral, NORMAL BREATHING PATTERN - Cardiovascular Exam Cardiovascular Exam: Tachycardia, REGULAR RHYTHM, +S1, +S2 - GI/Abdominal Exam GI & Abdominal Exam: Soft, Normal Bowel Sounds - Extremities Exam Extremities Exam: Pedal Edema - Neurological Exam Neurological Exam: Altered - Skin Skin Exam: Normal Color, Warm Assessment and Plan - Assessment and Plan (Free Text) Assessment: 62yo female a/w severe sepsis, bacteremia Severe Sepsis Dehydration Hypokalemia Hx Breast Ca Fever AMS Bacteremia - currently hypertensive, afebrile, sinus tach 130s - on exam neck is soft, full ROM, no photophobia - Labs, imaging, chart reviewed - blood cultures positive for GPC, ID following Recommend: - supp o2 as needed, duonebs PRN, IS - follow up cultures sensitivities, spec, procal - follow up CT A/P, CTH reading by radiology - Frederick Mcdonald, check Vanco trough before 4th dose - ECHO - replete K - Fever control - FS control - IVF hydration - NPO - aspiration, seizure precautions - GI ppx - DVT ppx, SCDs - Monitor in MICU Critical care time 35 minutes
[2018-01-19] MEDS ORDERED: Metoprolol 1 mg/ml Inj IVP ONE ×2 (10:32→17:15)
[2018-01-19] MEDS ORDERED: Metoprolol 1 mg/ml Inj ONE (10:38)
[2018-01-19 10:44] LABS: BLOOD UREA NITROGEN 24 mg/dL (7-21); CALCIUM 9.6 mg/dL (8.4-10.5); GFR NON-AFRICAN AMERICAN > 60
[2018-01-19 10:45] LABS: ALB/GLOB RATIO 0.8 (1.1-1.8); ALBUMIN 3.8 g/dL (3.0-4.8); ALT/SGPT 27 U/L (7-56); AST/SGOT 120 U/L (14-36)
[2018-01-19] MEDS: Metoprolol 1 mg/ml Inj IVP SCH ×2 (12:42→23:46)
--- NOTE | 2018-01-19 12:42 | CP.PCM.PN ---
Subjective - Date & Time of Evaluation Date of Evaluation: 01/19/18 Time of Evaluation: 12:41 - Subjective Subjective: Patient with persistent sinus tachycardia, repeat EKG obtained which showed ST, Diffuse Ant Lat ST elevations, and AK segement depressions. Dr Perry Interventional cardiology consulted, and recommendations appreciated. Will order ECHO, cardiac enzymes. Patient denies CP, SOB. Objective - Vital Signs/Intake and Output Vital Signs (last 24 hours): Temp Pulse Resp BP Pulse Ox 99.9 F H 134 H 58 H 162/105 H 95 01/19/18 12:20 01/19/18 12:20 01/19/18 12:20 01/19/18 12:00 01/19/18 12:20 Intake and Output: 01/19/18 01/19/18 06:59 18:59 Intake Total 2810 Output Total 3350 Balance -540 - Medications Medications: Current Medications Acetaminophen (Tylenol 325mg Tab) 650 mg PO Q4 PRN PRN Reason: Fever >100.4 F Aspirin (Aspirin Chewable) 81 mg PO DAILY [facility] Last Admin: 01/19/18 10:04 Dose: Not Given Clopidogrel Bisulfate (Plavix) 75 mg PO DAILY [facility] Last Admin: 01/19/18 10:04 Dose: Not Given Docusate Sodium (Colace) 100 mg PO TID [facility] Last Admin: 01/19/18 10:04 Dose: Not Given Famotidine (Pepcid) 20 mg PO HS [facility] Gabapentin (Neurontin) 300 mg PO TID [facility]; Protocol Last Admin: 01/19/18 10:04 Dose: Not Given Hydralazine HCl (Apresoline) 50 mg PO TID [facility] Last Admin: 01/19/18 10:04 Dose: Not Given Hydralazine HCl (Apresoline) 10 mg IVP Q6 PRN PRN Reason: for SBP>160 Vancomycin HCl (Vancomycin 1gm) 1 gm in 250 mls @ 167 mls/hr IVPB Q12 [facility]; Protocol Last Admin: 01/19/18 10:09 Dose: 167 mls/hr Sodium Chloride (Sodium Chloride 0.9%) 1,000 mls @ 125 mls/hr IV .Q8H [facility] Last Admin: 01/19/18 08:40 Dose: 125 mls/hr Acetaminophen (Ofirmev) 1,000 mg in 100 mls @ 400 mls/hr IVPB Q6H PRN PRN Reason: Pain, moderate (4-7) Stop: 01/21/18 01:05 Last Admin: 01/19/18 01:15 Dose: 400 mls/hr Meropenem (Merrem Iv 1 Gm Premix) 1 gm in 50 mls @ 100 mls/hr IVPB Q8 [facility]; Protocol Last Admin: 01/19/18 07:34 Dose: 100 mls/hr Acyclovir 600 mg/ Sodium (Chloride) 100 mls @ 100 mls/hr IV Q8 [facility]; Protocol Last Admin: 01/19/18 10:05 Dose: 100 mls/hr Ampicillin 2 gm/ Sodium (Chloride) 100 mls @ 200 mls/hr IVPB Q6 [facility]; Protocol Potassium Chloride (Potassium Chloride 10 Meq/100 Ml) 10 meq in 100 mls @ 10 mls/hr IVPB Q2H [facility] Stop: 01/19/18 20:29 Last Admin: 01/19/18 09:50 Dose: 10 mls/hr Sodium Phosphate 15 mmole/ (Dextrose) 255 mls @ 42.5 mls/hr IVPB ONCE ONE Stop: 01/19/18 14:19 Last Admin: 01/19/18 09:50 Dose: 42.5 mls/hr Lisinopril (Zestril) 10 mg PO DAILY [facility] Last Admin: 01/19/18 10:05 Dose: Not Given Lorazepam (Ativan) 1 mg IVP Q6 PRN; Protocol PRN Reason: Anxiety Last Admin: 01/19/18 10:33 Dose: 1 mg Metoprolol Tartrate (Lopressor) 5 mg IVP Q6H [facility] Oseltamivir Phosphate (Tamiflu Susp) 75 mg PO BID [facility]; Protocol Stop: 01/24/18 07:31 Last Admin: 01/19/18 08:36 Dose: Not Given Oxycodone HCl (Oxycodone Immediate Release Tab) 30 mg PO Q6H PRN PRN Reason: Pain, severe (8-10) Pantoprazole Sodium (Protonix Inj) 40 mg IVP DAILY [facility] Last Admin: 01/19/18 10:08 Dose: 40 mg - Labs Labs: 01/19/18 05:00 01/19/18 05:00 PT 21.6 SECONDS (9.4-12.5) H 01/19/18 05:00 INR 1.85 01/19/18 05:00 APTT 32.4 Seconds (25.1-36.5) 01/19/18 05:00
[2018-01-19] MEDS: AMPicillin 2 GM in Sodium Chloride 0.9% 100 ML IVPB SCH ×3 (12:46→23:43)
--- NOTE | 2018-01-19 12:54 | CARD ---
APPROVED REPORT Date of service: 01/18/2018 EKG Measurement Heart [id number] <Conclusion> Sinus rhythm with premature ventricular complexes in a bigeminy pattern Anteroseptal infarct, possibly acute Marked T wave abnormality, consider inferolateral ischemia Abnormal ECG
--- NOTE | 2018-01-19 13:13 | CP.PCM.CON ---
History of Present Illness - History of Present Illness History of Present Illness: 62 year old female with PMH of breast cancer with bone metastases on chemotherapy, HTN, osteoporosis, former drug user was brought in to [facility] [place] because of fevers as well as confusion. History was taken from ER records and from ICU staff since there are no family members available to provide details. She apparently lives at home with a home health aide who stays with her for at least 12 hours a day, and was noted to have vomiting for the past 3 days and became more lethargic as the days went and confused. In the ED, the patient was noted to be febrile. Full ROS is unobtainable since the patient is currently not communicative, speaks words but does not follow commands or answers questions. She is also noted to have elevated WBC count. Infectious Diseases consult is requested to further evaluate and manage. Review of Systems - Review of Systems Systems not reviewed;Unavailable: Altered Mental Status All systems: reviewed and no additional remarkable complaints except (as per HPI) Past Patient History - Infectious Disease Hx of Infectious Diseases: None - Tetanus Immunizations Tetanus Immunization: Unknown - Past Social History Smoking Status: Never Smoked Alcohol: None Drugs: Denies Home Situation {Lives}: Other - CARDIAC Hx Cardiac Disorders: No Hx Hypertension: Yes - PULMONARY Hx Respiratory Disorders: No - NEUROLOGICAL Hx Neurological Disorder: No - HEENT Hx HEENT Problems: No - RENAL Hx Chronic Kidney Disease: No - ENDOCRINE/METABOLIC Hx Endocrine Disorders: No - HEMATOLOGICAL/ONCOLOGICAL Hx Blood Transfusions: Yes Hx Blood Transfusion Reaction: No - INTEGUMENTARY Hx Dermatological Problems: No - MUSCULOSKELETAL/RHEUMATOLOGICAL Hx Falls: No - GASTROINTESTINAL Hx Gastrointestinal Disorders: No - GENITOURINARY/GYNECOLOGICAL Hx Genitourinary Disorders: No - PSYCHIATRIC Hx Anxiety: Yes Hx Substance Use: No - SURGICAL HISTORY Hx Mastectomy: No Other/Comment: stage 4 breast, bone ca - ANESTHESIA Hx Anesthesia Reactions: No Hx Malignant Hyperthermia: No Meds Allergies/Adverse Reactions: Allergies Allergy/AdvReac Type Severity Reaction Status Date / Time No Known Allergies Allergy Verified 07/28/17 11:57 - Medications Medications: Current Medications Acetaminophen (Tylenol 325mg Tab) 650 mg PO Q4 PRN PRN Reason: Fever >100.4 F Aspirin (Aspirin Chewable) 81 mg PO DAILY [facility] Clopidogrel Bisulfate (Plavix) 75 mg PO DAILY [facility] Docusate Sodium (Colace) 100 mg PO TID [facility] Enoxaparin Sodium (Lovenox) 40 mg SC DAILY [facility]; Protocol Famotidine (Pepcid) 20 mg PO HS [facility] Furosemide (Lasix) 20 mg PO DAILY [facility] Gabapentin (Neurontin) 300 mg PO TID [facility]; Protocol Hydralazine HCl (Apresoline) 50 mg PO TID [facility] Vancomycin HCl (Vancomycin 1gm) 1 gm in 250 mls @ 167 mls/hr IVPB Q12 [facility]; Protocol Last Admin: 01/19/18 00:26 Dose: 167 mls/hr Sodium Chloride (Sodium Chloride 0.9%) 1,000 mls @ 125 mls/hr IV .Q8H [facility] Last Admin: 01/18/18 23:15 Dose: 125 mls/hr Acetaminophen (Ofirmev) 1,000 mg in 100 mls @ 400 mls/hr IVPB Q6H PRN PRN Reason: Pain, moderate (4-7) Stop: 01/21/18 01:05 Last Admin: 01/19/18 01:15 Dose: 400 mls/hr Meropenem (Merrem Iv 1 Gm Premix) 1 gm in 50 mls @ 100 mls/hr IVPB Q8 [facility]; Protocol Acyclovir 600 mg/ Sodium (Chloride) 100 mls @ 100 mls/hr IV Q8 [facility]; Protocol Lisinopril (Zestril) 10 mg PO DAILY [facility] Lorazepam (Ativan) 1 mg IVP Q6 PRN; Protocol PRN Reason: Anxiety Last Admin: 01/18/18 19:55 Dose: 1 mg Metoprolol Tartrate (Lopressor) 50 mg PO BID [facility] Oxycodone HCl (Oxycodone Immediate Release Tab) 30 mg PO Q6H PRN PRN Reason: Pain, severe (8-10) Pantoprazole Sodium (Protonix Inj) 40 mg IVP DAILY [facility] Physical Exam - Constitutional Appears: Confused, Chronically Ill - Head Exam Head Exam: NORMAL INSPECTION - ENT Exam ENT Exam: Mucous Membranes Moist - Neck Exam Additional comments: neck is supple when patient is not combative - Respiratory Exam Respiratory Exam: Decreased Breath Sounds - Cardiovascular Exam Cardiovascular Exam: +S1, +S2 - GI/Abdominal Exam GI & Abdominal Exam: Soft. absent: Tenderness Results - Vital Signs Recent Vital Signs: Last Vital Signs Temp 100.6 F H 01/18/18 22:11 Pulse 144 H 01/19/18 02:16 Resp 24 01/18/18 22:11 BP 156/95 H 01/19/18 02:16 Pulse Ox 88 L 01/18/18 21:40 - Labs Result Diagrams: 01/19/18 05:00 01/19/18 05:00 Labs: Laboratory Results - last 24 hr 01/18/18 01/18/18 01/18/18 14:48 14:48 14:48 WBC 26.5 H* D RBC 4.55 Hgb 12.4 D Hct 36.9 MCV 81.1 D MCH 27.3 MCHC 33.6 RDW 14.9 H Plt Count 243 MPV 9.7 Gran % 85.9 H Lymph % (Auto) 2.9 L Gilchrist % (Auto) 11.2 H Eos % (Auto) 0.0 L Baso % (Auto) 0.0 Gran # 22.75 H Lymph # (Auto) 0.8 L Gilchrist # (Auto) 3.0 H Eos # (Auto) 0.0 Baso # (Auto) 0.01 Neutrophils % (Manual) 83 H Band Neutrophils % 4 H Lymphocytes % (Manual) 6 L Monocytes % (Manual) 7 H Platelet Evaluation Normal Anisocytosis (manual) 1+ Microcytosis (manual) 1+ Ovalocytes Slight PT 19.6 H INR 1.70 APTT 31.4 pO2 VBG pH VBG pCO2 VBG HCO3 VBG Total CO2 VBG O2 Sat (Calc) VBG Base Excess VBG Potassium Sodium Chloride Glucose Lactate FiO2 Potassium Carbon Dioxide Anion Gap BUN Creatinine Est GFR ( Amer) Est GFR (Non-Af Amer) Random Glucose Calcium Phosphorus Magnesium Total Bilirubin AST ALT Alkaline Phosphatase Total Protein Albumin Globulin Albumin/Globulin Ratio Venous Blood Potassium Urine Color Dark yellow Urine Appearance Sl cloudy Urine pH 6.0 Ur Specific Bonham >= 1.030 Urine Protein >=300 H Urine Glucose (UA) Negative Urine Ketones Negative Urine Blood Large H Urine Nitrate Negative Urine Bilirubin Negative Urine Urobilinogen 0.2 Ur Leukocyte Esterase Negative Urine RBC 20 - 25 Urine WBC 1 - 3 Ur Epithelial Cells 4 - 5 Amorphous Sediment Few Urine Bacteria Many Coarse Granular Casts Trace H Urine Other Uyeast Stool Occult Blood Urine Opiates Screen Urine Methadone Screen Ur Barbiturates Screen Ur Phencyclidine Scrn Ur Amphetamines Screen U Benzodiazepines Scrn U Oth Cocaine Metabols U Cannabinoids Screen 01/18/18 01/18/18 01/18/18 14:48 14:48 17:22 WBC RBC Hgb Hct MCV MCH MCHC RDW Plt Count MPV Gran % Lymph % (Auto) Gilchrist % (Auto) Eos % (Auto) Baso % (Auto) Gran # Lymph # (Auto) Gilchrist # (Auto) Eos # (Auto) Baso # (Auto) Neutrophils % (Manual) Band Neutrophils % Lymphocytes % (Manual) Monocytes % (Manual) Platelet Evaluation Anisocytosis (manual) Microcytosis (manual) Ovalocytes PT INR APTT pO2 32 51 VBG pH 7.58 H 7.61 H VBG pCO2 28.0 L 24.0 L VBG HCO3 26.3 24.1 VBG Total CO2 27.2 24.8 VBG O2 Sat (Calc) 71.1 H 93.3 H VBG Base Excess 5.2 H 4.0 H VBG Potassium 2.7 L 2.1 L* Sodium 144.0 143 143.0 Chloride 103.0 99 107.0 Glucose 186 H 145 H Lactate 7.8 H* 5.1 H* FiO2 21.0 21.0 Potassium 2.2 L* D Carbon Dioxide 25 Anion Gap 21 H BUN 23 H Creatinine 0.9 Est GFR ( Amer) > 60 Est GFR (Non-Af Amer) > 60 Random Glucose 188 H Calcium 10.8 H Phosphorus 1.8 L Magnesium 1.8 Total Bilirubin 3.7 H AST 81 H D ALT 15 Alkaline Phosphatase 147 H D Total Protein 9.8 H Albumin 4.8 Globulin 5.0 Albumin/Globulin Ratio 1.0 L Venous Blood Potassium 2.7 L 2.1 L* Urine Color Urine Appearance Urine pH Ur Specific Bonham Urine Protein Urine Glucose (UA) Urine Ketones Urine Blood Urine Nitrate Urine Bilirubin Urine Urobilinogen Ur Leukocyte Esterase Urine RBC Urine WBC Ur Epithelial Cells Amorphous Sediment Urine Bacteria Coarse Granular Casts Urine Other Stool Occult Blood Urine Opiates Screen Urine Methadone Screen Ur Barbiturates Screen Ur Phencyclidine Scrn Ur Amphetamines Screen U Benzodiazepines Scrn U Oth Cocaine Metabols U Cannabinoids Screen 01/18/18 01/18/18 01/18/18 17:49 22:30 22:52 WBC RBC Hgb Hct MCV MCH MCHC RDW Plt Count MPV Gran % Lymph % (Auto) Gilchrist % (Auto) Eos % (Auto) Baso % (Auto) Gran # Lymph # (Auto) Gilchrist # (Auto) Eos # (Auto) Baso # (Auto) Neutrophils % (Manual) Band Neutrophils % Lymphocytes % (Manual) Monocytes % (Manual) Platelet Evaluation Anisocytosis (manual) Microcytosis (manual) Ovalocytes PT INR APTT pO2 VBG pH VBG pCO2 VBG HCO3 VBG Total CO2 VBG O2 Sat (Calc) VBG Base Excess VBG Potassium Sodium 142 Chloride 108 H Glucose Lactate FiO2 Potassium 2.7 L* D Carbon Dioxide 20 L Anion Gap 17 BUN 19 Creatinine 0.6 L Est GFR ( Amer) > 60 Est GFR (Non-Af Amer) > 60 Random Glucose 180 H Calcium 9.6 Phosphorus Magnesium Total Bilirubin AST ALT Alkaline Phosphatase Total Protein Albumin Globulin Albumin/Globulin Ratio Venous Blood Potassium Urine Color Urine Appearance Urine pH Ur Specific Bonham Urine Protein Urine Glucose (UA) Urine Ketones Urine Blood Urine Nitrate Urine Bilirubin Urine Urobilinogen Ur Leukocyte Esterase Urine RBC Urine WBC Ur Epithelial Cells Amorphous Sediment Urine Bacteria Coarse Granular Casts Urine Other Stool Occult Blood Positive H Urine Opiates Screen Negative Urine Methadone Screen Negative Ur Barbiturates Screen Negative Ur Phencyclidine Scrn Negative Ur Amphetamines Screen Negative U Benzodiazepines Scrn Negative U Oth Cocaine Metabols Negative U Cannabinoids Screen Negative 01/19/18 01/19/18 05:00 05:00 WBC 30.8 H* RBC 4.37 Hgb 12.0 Hct 35.3 L MCV 80.8 MCH 27.5 MCHC 34.0 RDW 15.2 H Plt Count 221 MPV 9.9 Gran % 85.7 H Lymph % (Auto) 4.0 L Gilchrist % (Auto) 10.2 H Eos % (Auto) 0.0 L Baso % (Auto) 0.1 Gran # 26.38 H Lymph # (Auto) 1.2 Gilchrist # (Auto) 3.1 H Eos # (Auto) 0.0 Baso # (Auto) 0.02 Neutrophils % (Manual) Band Neutrophils % Lymphocytes % (Manual) Monocytes % (Manual) Platelet Evaluation Anisocytosis (manual) Microcytosis (manual) Ovalocytes PT 21.6 H INR 1.85 APTT 32.4 pO2 VBG pH VBG pCO2 VBG HCO3 VBG Total CO2 VBG O2 Sat (Calc) VBG Base Excess VBG Potassium Sodium Chloride Glucose Lactate FiO2 Potassium Carbon Dioxide Anion Gap BUN Creatinine Est GFR ( Amer) Est GFR (Non-Af Amer) Random Glucose Calcium Phosphorus Magnesium Total Bilirubin AST ALT Alkaline Phosphatase Total Protein Albumin Globulin Albumin/Globulin Ratio Venous Blood Potassium Urine Color Urine Appearance Urine pH Ur Specific Bonham Urine Protein Urine Glucose (UA) Urine Ketones Urine Blood Urine Nitrate Urine Bilirubin Urine Urobilinogen Ur Leukocyte Esterase Urine RBC Urine WBC Ur Epithelial Cells Amorphous Sediment Urine Bacteria Coarse Granular Casts Urine Other Stool Occult Blood Urine Opiates Screen Urine Methadone Screen Ur Barbiturates Screen Ur Phencyclidine Scrn Ur Amphetamines Screen U Benzodiazepines Scrn U Oth Cocaine Metabols U Cannabinoids Screen Assessment & Plan - Assessment and Plan (Free Text) Plan: Assessment systemic inflammatory response syndrome with acute encephalopathy, consider severe sepsis source to be determined, R/O meningoencephalitis, R/O intra- abdominal infection, R/O UTI metastatic breast cancer on chemotherapy history of maculopapular rash with eosinophilia, consider allergic reaction R/O drug-induced history of sepsis due to Methicillin-sensitive Staph aureus bacteremia HTN osteoporosis former drug user Plan started patient on Vancomycin, Merrem, Ampicillin, Acyclovir pending blood cx, urine cx; reviewed CXR which does not show infiltrates; will recommend patient to undergo lumbar puncture for CSF analysis, cultures; will recommend CT scan of the abdomen and pelvis as well; may need MRI brain; suggest Neurology consult will monitor clinically overall prognosis is poor
--- NOTE | 2018-01-19 13:14 | CARD ---
APPROVED REPORT Date of service: 01/19/2018 EKG Measurement Heart [id number] <Conclusion> Sinus tachycardia ST elevation, consider anterolateral injury or acute infarct ACUTE NM Abnormal ECG
[2018-01-19] MEDS ORDERED: DAPTOmycin 500 mg Inj (Cubicin) IV SCH (13:15)
[2018-01-19] MEDS ORDERED: DAPTOmycin 500 mg Inj (Cubicin) IV ONE (13:16)
[2018-01-19 13:44] LABS: TROPONIN I 7.47 ng/mL
[2018-01-19 14:37] LABS: CK MB% 4.9 % (2.5-3.0); CK-MB 19.1 ng/mL (0.0-3.6)
--- NOTE | 2018-01-19 15:19 | CT ---
Date of service: 01/18/2018 PROCEDURE: CT Abdomen and Pelvis without intravenous contrast HISTORY: Sepsis, rule out intrabdominal source COMPARISON: 06/16/2017 TECHNIQUE: Without contrast.. Contrast dose: Radiation dose: Total exam DLP = 699 mGy-cm. This CT exam was performed using one or more of the following dose reduction techniques: Automated exposure control, adjustment of the mA and/or kV according to patient size, and/or use of iterative reconstruction technique. FINDINGS: LOWER THORAX: Unremarkable. LIVER: Unremarkable. No gross lesion or ductal dilatation. GALLBLADDER AND BILE DUCTS: Multiple gallstones PANCREAS: Unremarkable. No gross lesion or ductal dilatation. SPLEEN: Unremarkable. ADRENALS: Unremarkable. No mass. KIDNEYS AND URETERS: Unremarkable. No hydronephrosis. No solid mass. VASCULATURE: Unremarkable. No aortic aneurysm. BOWEL: Unremarkable. No obstruction. No gross mural thickening. There is distention of the stomach with an air-fluid level. The duodenum is also distended. This could represent gastroparesis or partial obstruction. The remainder of the small bowel is normal in caliber. There is mural thickening of the distal esophagus. Possible esophagitis APPENDIX: Unremarkable. Normal appendix. PERITONEUM: Unremarkable. No free fluid. No free air. LYMPH NODES: Unremarkable. No enlarged lymph nodes. BLADDER: Unremarkable. REPRODUCTIVE: Unremarkable. BONES: Chronic T12 compression fracture OTHER FINDINGS: The report concurs with the preliminary [facility] report IMPRESSION: There is distention of the stomach with an air-fluid level. The duodenum is also distended. This could represent gastroparesis or partial obstruction. The remainder of the small bowel is normal in caliber. There is mural thickening of the distal esophagus. Possible esophagitis
[2018-01-19] MEDS ORDERED: Heparin25000 units/250ml 1/2NS 25,000 UNITS/250 ML BAG IV SCH (15:30)
[2018-01-19 17:06] LABS: ARTERIAL BLOOD GAS HCO3 15.9 mmol/L (21-28); ARTERIAL BLOOD GAS O2 SAT 97.9 % (95-98); ARTERIAL BLOOD GAS PCO2 17 mm/Hg (35-45); ARTERIAL BLOOD GAS PH 7.58 (7.35-7.45); ARTERIAL BLOOD GAS TCO2 16.4 mmol.L (22-28)
--- NOTE | 2018-01-19 20:20 | CARD ---
APPROVED REPORT Date of service: 01/19/2018 EXAM: Two-dimensional and M-mode echocardiogram with Doppler and color Doppler. INDICATION Pericardial Effusion 2D DIMENSIONS Left Atrium (2D)3.6 (1.6-4.0cm) Aortic Valve AoV Peak [id number]/Meghana Peak GR.4mmHg Mitral Valve E/A ratio0.0 TDI E/Lateral E'0.0E/Medial E'0.0 Tricuspid Valve TR Peak [id number] Peak Gr.24mmHg [id number] LEFT VENTRICLE The left ventricle is normal size. There is normal left ventricular wall thickness. The systolic function is severely impaired.EF-20% There is severe hypokinesis in the apical anterior wall. Pt was very tachycardiac, unable to assess No left ventricle thrombus noted on this study. There is no ventricular septal defect visualized. There is no left ventricular aneurysm. There is no mass noted in the left ventricle. RIGHT VENTRICLE The right ventricle is normal size. There is normal right ventricular wall thickness. The right ventricular systolic function is normal. ATRIA The left atrium size is normal. The right atrium size is normal. The interatrial septum is intact with no evidence for an atrial septal defect. AORTIC VALVE The aortic valve is not well visualized, but probably normal. No aortic regurgitation is present. There is no aortic valvular stenosis. MITRAL VALVE The mitral valve is thickened but opens well. Mitral regurgitation is mild to moderate. There is no mitral valve stenosis. There is no evidence of mitral valve prolapse. TRICUSPID VALVE The tricuspid valve leaflets are thickened , but open well. There is mild tricuspid regurgitation.RVSP-34 mmof Hg. There is no tricuspid valve stenosis. There is no tricuspid valve prolapse or vegetation. PULMONIC VALVE The pulmonic valve is not well visualized. GREAT VESSELS The aortic root is normal in size. The ascending aorta is normal in size. The pulmonary artery is normal. The IVC is normal in size and collapses >50% with inspiration. PERICARDIAL EFFUSION There is no pleural effusion. There is a trace to small pericardial effusion. <Conclusion> Normal chamber Size. EF-20% Mitral regurgitation is mild to moderate. There is mild tricuspid regurgitation.RVSP-34 mmof Hg. The IVC is normal in size and collapses >50% with inspiration. There is a trace to small pericardial effusion.
[2018-01-19 23:01] LABS: BLOOD UREA NITROGEN 23 mg/dL (7-21); CALCIUM 9.3 mg/dL (8.4-10.5); GFR NON-AFRICAN AMERICAN > 60
[2018-01-19 23:16] LABS: TROPONIN I 5.59 ng/mL
[2018-01-20] MEDS: Heparin25000 units/250ml 1/2NS 25,000 UNITS/250 ML BAG IV SCH ×2 (00:12→20:46)
--- NOTE | 2018-01-20 00:28 | CON ---
DATE: 01/19/2018 SERVICE: CARDIOLOGY REASON FOR CONSULTATION: Abnormal EKG, global ST elevation, rule out AK, asymptomatic. BRIEF CLINICAL HISTORY: This is a 62-year-old female with past medical history of stage IV invasive carcinoma of the breast with mets to the bone on chemotherapy, last session 1.5 weeks ago at [facility], admitted with methicillin sensitive Staphylococcus aureus bacteremia, hypertension, CAD and osteoarthritis, presented [facility] the [facility]. Currently, patient is on ICU 129, bed 3. I was called because patient was tachycardia with EKG found to be ST elevation in the V1 to V6 as well as II, III, aVF with global ST elevation. Patient does not have any chest pain. Family, that is [id number] is at the bedside. Patient had altered mental status. Denies any chest pain. Nodding her head. PAST MEDICAL HISTORY: Significant for breast CA with metastasis, MRSA sepsis, altered mental status, blood cultures growing Staph aureus positive. PAST SURGICAL HISTORY: Significant for the right hip and ankle surgery. SOCIAL HISTORY: Denies any smoking. Denies any history of alcohol abuse. Last chemo 1.5 weeks ago at [facility]. Did not get any radiation. REVIEW OF SYSTEMS: As per HPI. PHYSICAL EXAMINATION: VITAL SIGNS: As follows, height of the patient 5 feet 5 inches, weight of the patient 144 pounds, body mass index 24 kg/sq. m, temperature 100, heart rate 134, blood pressure 162/105. HEENT: PERRLA. Extraocular muscles intact. NECK: Supple. No carotid bruits or thyromegaly. CHEST: Clear to auscultation. Possible pericardial rub. Difficult because the patient is very tachycardiac. ABDOMEN: Soft. EXTREMITIES: Clubbing and cyanosis negative. LABORATORY DATA: Blood workup as follows, WBC 30.8 thousand, hemoglobin 12, hematocrit 35.3, platelet count 221. Chemistry shows sodium 140, potassium 3, chloride 113, carbon dioxide 19, anion gap of 13, BUN 24, creatinine 0.4. EKG shows sinus tachycardia with ST elevation in inferolaterally global ST elevation with DC segment more likely the pericarditis, but cannot rule out underlying coronary artery disease or coronary ischemia. Prior EKG when the patient came in has bigeminy pattern noted. IMPRESSION: A 62-year-old female with past medical history significant for breast cancer with metastasis to the bone, Staphylococcus aureus sepsis, elevated WBC, ST elevation could be secondary to pericarditis versus cannot rule tout myocardial infarction but patient is not a candidate to go to the director of cardiac cath lab, currently asymptomatic, altered mental status, tachycardia and methicillin resistant Staphylococcus aureus sepsis. RECOMMENDATION: We will get stat echo to rule out any pericardial effusion. If no pericardial effusion, we will start heparin, discussed with Dr. Freddy Fontaine, waiter/waitress cafeteria. We will start aspirin if the patient can take and further recommendation after the stat echo. Discussed with the patient's two [id number] at the bedside about the DNR status. The patient herself states that do everything possible, no immediate next of kin is available. Overall, patient's condition is critical. Prognosis is extremely guarded and poor. We will follow with you. We will also get lipid profile, TSH, hemoglobin A1c in the morning, next blood draw. Thank you, Dr. Anne, for providing us the opportunity in taking care of the patient, Denia Strauss. Ignacio Perry MD
[2018-01-20] MEDS: Metoprolol 1 mg/ml Inj IVP SCH ×3 (06:02→17:51)
[2018-01-20] MEDS: Meropenem IV 1 gm in NS 1 GM/50 ML BAG IVPB SCH ×3 (06:03→21:53)
[2018-01-20] MEDS: AMPicillin 2 GM in Sodium Chloride 0.9% 100 ML IVPB SCH ×3 (06:03→17:50)
[2018-01-20] MEDS: Sodium Chloride 0.9% 1,000 ML IV SCH ×2 (06:04→20:50)
[2018-01-20 07:10] LABS: BASO # 0.03 K/mm3 (0.0-2.0); BASO % 0.1 % (0.0-3.0); GRAN # 29.43 (1.4-6.5); GRAN % 84.4 % (50.0-68.0); HEMOGLOBIN 12.2 g/dL (12.0-16.0); LYMPH # 3.2 (1.2-3.4); LYMPH % 9.1 % (22.0-35.0); MEAN CELL VOLUME 81.1 fl (80.0-105.0); MEAN CORPUSCULAR HEMOGLOBIN 27.1 pg (25.0-35.0); MEAN CORPUSCULAR HGB CONC 33.4 g/dl (31.0-37.0); MEAN PLATELET VOLUME 11.1 fl (7.0-11.0); MONO # 2.2 (0.1-0.6); MONO % 6.4 % (1.0-6.0); PLATELET COUNT 326 10^3/uL (120.0-450.0); RED CELL DISTRIBUTION WIDTH 15.8 % (11.5-14.5)
[2018-01-20 07:29] LABS: WHITE BLOOD COUNT 34.9 10^3/ul (4.5-11.0)
[2018-01-20 07:54] LABS: ALB/GLOB RATIO 0.8 (1.1-1.8); ALBUMIN 3.3 g/dL (3.0-4.8); ALT/SGPT 27 U/L (7-56); AST/SGOT 77 U/L (14-36); BLOOD UREA NITROGEN 24 mg/dL (7-21); CALCIUM 9.4 mg/dL (8.4-10.5); GFR NON-AFRICAN AMERICAN > 60; HDL CHOLESTEROL 39 mg/dL (29-60); TROPONIN I 3.95 ng/mL
[2018-01-20 08:02] LABS: LDL CHOLESTEROL 74 mg/dL (0-129)
[2018-01-20 08:10] LABS: LYMPHOCYTE 11 % (22.0-35.0); MONOCYTE 1 % (1.0-6.0); NEUTROPHIL 88 % (50.0-70.0)
[2018-01-20 08:11] LABS: LARGE PLATELETS PRESENT; PLATELET ESTIMATE NORMAL (NORMAL)
--- NOTE | 2018-01-20 08:15 | CON ---
DATE: 01/19/2018 HISTORY OF PRESENT ILLNESS: I saw Ms. Strauss this morning. She is a 62-year-old female with past medical history of stage IV breast cancer with bone mets, most recently on chemotherapy. The patient also has history of bacteremia with hypertension, CAD, and osteoarthritis. The patient was admitted due to a change in mental status at home with nausea, vomiting, and diarrhea for several days. Note that her last chemo was according to the notes about a week and half ago. I did discuss with the nurse in the CCU this morning. At bedside this morning, the patient is non-communicative; however, she will nod with problems discussed during physical exam . Consult was called due to issues related to "gastroenteritis or sepsis." PHYSICAL EXAMINATION: VITAL SIGNS: I reviewed this patient's vital signs. HEENT: Unable to be performed appropriately. LUNGS: Exhibit decreased breath sounds at the base on both sides bilaterally. HEART: Irregular rhythm. Note that her blood pressure was elevated this morning, elevated systolic and diastolic pressure. ABDOMEN: Doughy. Mild discomfort on pressing the epigastric area as well as the suprapubic area. Bowel sounds were regular. LABORATORY DATA: I reviewed this patient's laboratory data which consist of white count of 30.8 with an H and H of 12 and 35, platelet count of 321. Chemistry as of yesterday indicative of hypokalemia. The abdominal and pelvic CT is not interpreted as of yet and at this point in time. OVERALL ASSESSMENT: This is a 62-year-old female with metastatic breast cancer, being treated in the unit for change in mental status with some abdominal pain, nausea, vomiting, and diarrhea. CT imaging isindicative of significant amount of fluid in the stomach. There are also some fluid filled loops in the small bowel . The colon at least appears noncontributory. There appears to be stool in the rectum. Again, the final interpretation of the CT is pending radiology evaluation. Review of the orders for this patient indicates she is on antibiotic therapy as well as medication for blood pressure and pain through IV fluids. I think these are adequate at the current time point. Given the current symptoms and fact that stool has already drawn for C. difficile stool antigen and toxin. We would await evaluation of this. This might be high on the list given her white count in the range of 30,000. Suggest conservative GI treatment for this particular patient. Daniel Briggs DO, MTDAnu
[2018-01-20] MEDS: Oseltamivir 6 MG/ML PO SCH ×2 (09:14→18:18)
[2018-01-20] MEDS: Vancomycin 1gm in NS 250ml 1 GM/250 ML BAG IVPB SCH ×2 (09:19→22:41)
[2018-01-20] MEDS: Nitroglycerin 2% Ointment Foilpak UD TOP SCH ×3 (11:07→22:25)
--- NOTE | 2018-01-20 12:13 | PN ---
DATE: 01/20/2018 SUBJECTIVE: The patient seen and examined at bedside. She is tracking objects with eyes, but does not respond to questions or commands. PHYSICAL EXAMINATION: VITAL SIGNS: Blood pressure 172/96, heart rate 118, oxygen saturation 96% on room air. ENT: Head and neck atraumatic. HEART: Regular rate with S1, S2 normal. LUNGS: Clear to auscultation bilaterally. ABDOMEN: Soft, nontender, nondistended. MUSCULOSKELETAL: Trace bilateral pedal and ankle edema. NEURO: The patient moves all extremities spontaneously. SKIN: Moist. PSYCH: The patient is alert, awake and oriented x3. LABORATORY DATA: WBC is 34.9, hemoglobin 12.2, platelet count is 326. Sodium 145, potassium 2.9, chloride 118, carbon dioxide 17, BUN 24, creatinine 0.6, glucose 105, troponin 3.95 down from 5.69, AST 77, ALT 27, total bilirubin 2.5. MEDICATIONS: Tylenol p.r.n., Ultram every 6 hours, acyclovir, ampicillin, aspirin, Plavix, Colace, Neurontin, heparin drip, hydralazine p.r.n. and p.o., lisinopril, Ativan p.r.n., meropenem, metoprolol, Tamiflu, oxycodone p.r.n., Protonix, potassium supplementation, normal saline 125 mL per hour, vancomycin. ASSESSMENT AND PLAN: This is a 62-year-old lady with gram positive cocci bacteremia in the setting of an ST elevated myocardial infarction. She is not a candidate for percutaneous coronary intervention or coronary angiography as per Cardiology service due to her underlying metastatic/endstage breast cancer and sepsis. At the present time, the patient is on antibiotics, IV fluids. Echocardiogram confirmed severe left ventricular systolic dysfunction. Patient is on DAP, TAC, ACEI for afterload reduction, bb. At the present time, conversation with family about Advanced Directives is on going. We will touch base with them meanwhile she is full code and will have low threshold for intubation if airway needs protection or respiratory failure ensues. We will continue to target euvolemia, euglycemia, normothermia and oxygen saturation more than 90%. We will continue with deep venous thrombosis and gastrointestinal prophylaxes. Addendum: as per extended family (the only family patient has) conversation, patient will remain a full code. Repeated bc from yesterday are negative so far, patient is on ampicillin, vanc, meropenem. Hemodynamically relatively stable. Not in respiratory or otherwise distress, very comfortable, protecting airways. Discussed with cardio service, will continue to monitor in tele. Cardiac Rx is optimized, no PCI ccm time 40 min Stefan Marquez MD MTDAnu
--- NOTE | 2018-01-20 12:22 | CP.PCM.CON ---
History of Present Illness - History of Present Illness History of Present Illness: Palliative consult requested by Dr Kaci Silva Reason: Goals of care 62 year old female with history of stage Iv ducal carcinoma of beast who was brought to ED on 01/18 18 with altered mental status. Patient has home home health aides, her and daughter recently . Brother in law Riki reports the patient had been experiencing, , nausea, vomiting ad diarrhea for 3 days prior to admission, last chemo was two weeks prior. CT of head 01/18: negative Chest x ray 01/18: negative CT of ab/pelvis 01/18: distention of stomach with air fluid evel, duodenum distended could represent gastropersis or partial obstruction. Mural thickening of distal esophagus, possible esophagitis. Labs 01/18: Wbc 26.5, Hgb 12.4, Plt 243,NA 143, K 2.2, Bun 23, Reagent Tender Helper 0.9, glucose 188, Cal10.8, Phos 1.8, AST 81, Alt 15, Alk Phos 147, Alb 5.0. Stool + for occult blood,Blood cultures positive for ECHO 01/19: EF 20%, mild/mod mitral and tricuspid regurgitation, small pericardial effusion PMHx: HTN, CAD,OA, invasive intraductal breast cancer, mets to bone currently receiving chemotherapy at [facility] Psh: Right hip surgery Social History: Non smoker, no alcohol or drug use.Lives alone, has home health aides 12 hours daily. Advance Care Planning : The patient does not have an Advanced Directive. Review of Systems: As per HPI, patient is altered complete review unable to be obtained Past Patient History - Infectious Disease Hx of Infectious Diseases: None - Tetanus Immunizations Tetanus Immunization: Unknown - Past Social History Smoking Status: Never Smoked Alcohol: None Drugs: Denies Home Situation {Lives}: Other - CARDIAC Hx Cardiac Disorders: No Hx Hypertension: Yes - PULMONARY Hx Respiratory Disorders: No - NEUROLOGICAL Hx Neurological Disorder: No - HEENT Hx HEENT Problems: No - RENAL Hx Chronic Kidney Disease: No - ENDOCRINE/METABOLIC Hx Endocrine Disorders: No - HEMATOLOGICAL/ONCOLOGICAL Hx Blood Transfusions: Yes Hx Blood Transfusion Reaction: No - INTEGUMENTARY Hx Dermatological Problems: No - MUSCULOSKELETAL/RHEUMATOLOGICAL Hx Falls: No - GASTROINTESTINAL Hx Gastrointestinal Disorders: No - GENITOURINARY/GYNECOLOGICAL Hx Genitourinary Disorders: No - PSYCHIATRIC Hx Anxiety: Yes Hx Substance Use: No - SURGICAL HISTORY Hx Mastectomy: No Other/Comment: stage 4 breast, bone ca - ANESTHESIA Hx Anesthesia Reactions: No Hx Malignant Hyperthermia: No Meds Allergies/Adverse Reactions: Allergies Allergy/AdvReac Type Severity Reaction Status Date / Time No Known Allergies Allergy Verified 07/28/17 11:57 - Medications Medications: Current Medications Aspirin (Aspirin Chewable) 81 mg PO DAILY [facility] Last Admin: 01/20/18 09:13 Dose: Not Given Atorvastatin Calcium (Lipitor) 40 mg PO DIN [facility] Clopidogrel Bisulfate (Plavix) 75 mg PO DAILY [facility] Last Admin: 01/20/18 09:14 Dose: Not Given Docusate Sodium (Colace) 100 mg PO TID [facility] Last Admin: 01/20/18 09:13 Dose: Not Given Gabapentin (Neurontin) 300 mg PO TID [facility]; Protocol Last Admin: 01/20/18 09:14 Dose: Not Given Hydralazine HCl (Apresoline) 50 mg PO TID [facility] Last Admin: 01/19/18 10:04 Dose: Not Given Hydralazine HCl (Apresoline) 10 mg IVP Q6 PRN PRN Reason: for SBP>160 Last Admin: 01/20/18 09:23 Dose: 10 mg Vancomycin HCl (Vancomycin 1gm) 1 gm in 250 mls @ 167 mls/hr IVPB Q12 [facility]; Protocol Last Admin: 01/20/18 09:19 Dose: 167 mls/hr Sodium Chloride (Sodium Chloride 0.9%) 1,000 mls @ 125 mls/hr IV .Q8H [facility] Last Admin: 01/20/18 06:04 Dose: 125 mls/hr Acetaminophen (Ofirmev) 1,000 mg in 100 mls @ 400 mls/hr IVPB Q6H PRN PRN Reason: Pain, moderate (4-7) Stop: 01/21/18 01:05 Last Admin: 01/19/18 01:15 Dose: 400 mls/hr Meropenem (Merrem Iv 1 Gm Premix) 1 gm in 50 mls @ 100 mls/hr IVPB Q8 [facility]; Protocol Last Admin: 01/20/18 06:03 Dose: 100 mls/hr Acyclovir 600 mg/ Sodium (Chloride) 100 mls @ 100 mls/hr IV Q8 [facility]; Protocol Last Admin: 01/20/18 06:04 Dose: 100 mls/hr Ampicillin 2 gm/ Sodium (Chloride) 100 mls @ 200 mls/hr IVPB Q6 [facility]; Protocol Last Admin: 01/20/18 11:05 Dose: 200 mls/hr Heparin Sodium/Sodium Chloride (Heparin 09355 Units/250ml 1/2 Normal Saline) 25,000 units in 250 mls @ 7.838 mls/hr IV .Q24H [facility]; Protocol Last Titration: 01/20/18 09:06 Dose: 14 units/kg/hr, 9.144 mls/hr Potassium Chloride (Potassium Chloride 10 Meq/100 Ml) 10 meq in 100 mls @ 50 mls/hr IVPB Q2H [facility] Stop: 01/20/18 20:14 Last Admin: 01/20/18 10:33 Dose: 50 mls/hr Lisinopril (Zestril) 10 mg PO DAILY [facility] Last Admin: 01/20/18 09:14 Dose: Not Given Lorazepam (Ativan) 1 mg IVP Q6 PRN; Protocol PRN Reason: Anxiety Last Admin: 01/19/18 10:33 Dose: 1 mg Metoprolol Tartrate (Lopressor) 5 mg IVP Q6H [facility] Last Admin: 01/20/18 06:02 Dose: 5 mg Nitroglycerin (Nitro-Bid 2% Oint) 1 ea TOP Q6H [facility] Last Admin: 01/20/18 11:07 Dose: 1 ea Oseltamivir Phosphate (Tamiflu Susp) 75 mg PO BID [facility]; Protocol Stop: 01/24/18 07:31 Last Admin: 01/20/18 09:14 Dose: Not Given Oxycodone HCl (Oxycodone Immediate Release Tab) 30 mg PO Q6H PRN PRN Reason: Pain, severe (8-10) Pantoprazole Sodium (Protonix Inj) 40 mg IVP DAILY [facility] Last Admin: 01/20/18 09:18 Dose: 40 mg Results - Vital Signs Recent Vital Signs: Last Vital Signs Temp 98.4 F 01/20/18 07:10 Pulse 111 H 01/20/18 09:23 Resp 50 H 01/20/18 07:10 BP 172/96 H 01/20/18 09:23 Pulse Ox 97 01/20/18 07:10 - Labs Result Diagrams: 01/20/18 06:40 01/20/18 06:40 Labs: Laboratory Results - last 24 hr 01/18/18 01/19/18 01/19/18 14:48 13:00 13:00 WBC RBC Hgb Hct MCV MCH MCHC RDW Plt Count MPV Gran % Lymph % (Auto) [place] % (Auto) Eos % (Auto) Baso % (Auto) Gran # Lymph # (Auto) [place] # (Auto) Eos # (Auto) Baso # (Auto) Neutrophils % (Manual) Lymphocytes % (Manual) Monocytes % (Manual) Platelet Evaluation Large Platelets APTT pCO2 pO2 HCO3 ABG pH ABG Total CO2 ABG O2 Saturation ABG Base Excess ABG Potassium Sodium Chloride Glucose Lactate FiO2 Potassium Carbon Dioxide Anion Gap BUN Creatinine Est GFR ( Amer) Est GFR (Non-Af Amer) POC Glucose (mg/dL) Random Glucose Calcium Phosphorus Magnesium Total Bilirubin AST ALT Alkaline Phosphatase Ammonia Lactate Dehydrogenase Total Creatine Kinase 387 H CK-MB (CK-2) 19.1 H CK-MB (CK-2) % 4.9 H Troponin I 7.47 H* D NT-Pro-B Natriuret Pep 64806 H Total Protein Albumin Globulin Albumin/Globulin Ratio Triglycerides Cholesterol LDL Cholesterol Direct HDL Cholesterol Lipase 146 Procalcitonin 0.69 H TSH 3rd Generation Arterial Blood Potassium Vancomycin Trough 01/19/18 01/19/18 01/19/18 16:24 17:00 22:03 WBC RBC Hgb Hct MCV MCH MCHC RDW Plt Count MPV Gran % Lymph % (Auto) [place] % (Auto) Eos % (Auto) Baso % (Auto) Gran # Lymph # (Auto) [place] # (Auto) Eos # (Auto) Baso # (Auto) Neutrophils % (Manual) Lymphocytes % (Manual) Monocytes % (Manual) Platelet Evaluation Large Platelets APTT pCO2 17 L* pO2 69.0 L HCO3 15.9 L ABG pH 7.58 H ABG Total CO2 16.4 L ABG O2 Saturation 97.9 ABG Base Excess -3.2 L ABG Potassium 2.8 L Sodium 142.0 Chloride 116.0 H Glucose 110 H Lactate 1.9 FiO2 30.0 Potassium Carbon Dioxide Anion Gap BUN Creatinine Est GFR ( Amer) Est GFR (Non-Af Amer) POC Glucose (mg/dL) 114 H 107 Random Glucose Calcium Phosphorus Magnesium Total Bilirubin AST ALT Alkaline Phosphatase Ammonia Lactate Dehydrogenase Total Creatine Kinase CK-MB (CK-2) CK-MB (CK-2) % Troponin I NT-Pro-B Natriuret Pep Total Protein Albumin Globulin Albumin/Globulin Ratio Triglycerides Cholesterol LDL Cholesterol Direct HDL Cholesterol Lipase Procalcitonin TSH 3rd Generation Arterial Blood Potassium 2.8 L Vancomycin Trough 01/19/18 01/19/18 01/20/18 22:30 22:30 06:40 WBC 34.9 H* RBC 4.50 Hgb 12.2 Hct 36.5 MCV 81.1 MCH 27.1 MCHC 33.4 RDW 15.8 H Plt Count 326 MPV 11.1 H Gran % 84.4 H Lymph % (Auto) 9.1 L [place] % (Auto) 6.4 H Eos % (Auto) 0.0 L Baso % (Auto) 0.1 Gran # 29.43 H Lymph # (Auto) 3.2 [place] # (Auto) 2.2 H Eos # (Auto) 0.0 Baso # (Auto) 0.03 Neutrophils % (Manual) 88 H Lymphocytes % (Manual) 11 L Monocytes % (Manual) 1 Platelet Evaluation Normal Large Platelets Present APTT 55.0 H pCO2 pO2 HCO3 ABG pH ABG Total CO2 ABG O2 Saturation ABG Base Excess ABG Potassium Sodium 144 Chloride 117 H Glucose Lactate FiO2 Potassium 3.2 L Carbon Dioxide 17 L Anion Gap 13 BUN 23 H Creatinine 0.6 L Est GFR ( Amer) > 60 Est GFR (Non-Af Amer) > 60 POC Glucose (mg/dL) Random Glucose 113 H Calcium 9.3 Phosphorus Magnesium Total Bilirubin AST ALT Alkaline Phosphatase Ammonia Lactate Dehydrogenase 1013 H Total Creatine Kinase 220 CK-MB (CK-2) CK-MB (CK-2) % Troponin I 5.59 H* D NT-Pro-B Natriuret Pep Total Protein Albumin Globulin Albumin/Globulin Ratio Triglycerides Cholesterol LDL Cholesterol Direct HDL Cholesterol Lipase Procalcitonin TSH 3rd Generation Arterial Blood Potassium Vancomycin Trough 01/20/18 01/20/18 01/20/18 06:40 06:40 06:40 WBC RBC Hgb Hct MCV MCH MCHC RDW Plt Count MPV Gran % Lymph % (Auto) [place] % (Auto) Eos % (Auto) Baso % (Auto) Gran # Lymph # (Auto) [place] # (Auto) Eos # (Auto) Baso # (Auto) Neutrophils % (Manual) Lymphocytes % (Manual) Monocytes % (Manual) Platelet Evaluation Large Platelets APTT pCO2 pO2 HCO3 ABG pH ABG Total CO2 ABG O2 Saturation ABG Base Excess ABG Potassium Sodium 145 Chloride 118 H Glucose Lactate FiO2 Potassium 2.9 L* Carbon Dioxide 17 L Anion Gap 13 BUN 24 H Creatinine 0.6 L Est GFR ( Amer) > 60 Est GFR (Non-Af Amer) > 60 POC Glucose (mg/dL) Random Glucose 105 Calcium 9.4 Phosphorus 2.6 Magnesium 2.0 Total Bilirubin 2.5 H AST 77 H D ALT 27 Alkaline Phosphatase 106 Ammonia Lactate Dehydrogenase 1079 H Total Creatine Kinase 138 CK-MB (CK-2) CK-MB (CK-2) % Troponin I 3.95 H* D NT-Pro-B Natriuret Pep Total Protein 7.4 Albumin 3.3 Globulin 4.1 Albumin/Globulin Ratio 0.8 L Triglycerides 85 Cholesterol 153 LDL Cholesterol Direct 74 HDL Cholesterol 39 Lipase Procalcitonin TSH 3rd Generation 0.57 Arterial Blood Potassium Vancomycin Trough 12.5 H 01/20/18 01/20/18 01/20/18 06:40 07:23 10:00 WBC RBC Hgb Hct MCV MCH MCHC RDW Plt Count MPV Gran % Lymph % (Auto) [place] % (Auto) Eos % (Auto) Baso % (Auto) Gran # Lymph # (Auto) [place] # (Auto) Eos # (Auto) Baso # (Auto) Neutrophils % (Manual) Lymphocytes % (Manual) Monocytes % (Manual) Platelet Evaluation Large Platelets APTT 39.0 H pCO2 pO2 HCO3 ABG pH ABG Total CO2 ABG O2 Saturation ABG Base Excess ABG Potassium Sodium Chloride Glucose Lactate FiO2 Potassium Carbon Dioxide Anion Gap BUN Creatinine Est GFR ( Amer) Est GFR (Non-Af Amer) POC Glucose (mg/dL) 91 Random Glucose Calcium Phosphorus Magnesium Total Bilirubin AST ALT Alkaline Phosphatase Ammonia < 9 L Lactate Dehydrogenase Total Creatine Kinase CK-MB (CK-2) CK-MB (CK-2) % Troponin I NT-Pro-B Natriuret Pep Total Protein Albumin Globulin Albumin/Globulin Ratio Triglycerides Cholesterol LDL Cholesterol Direct HDL Cholesterol Lipase Procalcitonin TSH 3rd Generation Arterial Blood Potassium Vancomycin Trough 01/20/18 11:06 WBC RBC Hgb Hct MCV MCH MCHC RDW Plt Count MPV Gran % Lymph % (Auto) [place] % (Auto) Eos % (Auto) Baso % (Auto) Gran # Lymph # (Auto) [place] # (Auto) Eos # (Auto) Baso # (Auto) Neutrophils % (Manual) Lymphocytes % (Manual) Monocytes % (Manual) Platelet Evaluation Large Platelets APTT pCO2 pO2 HCO3 ABG pH ABG Total CO2 ABG O2 Saturation ABG Base Excess ABG Potassium Sodium Chloride Glucose Lactate FiO2 Potassium Carbon Dioxide Anion Gap BUN Creatinine Est GFR ( Amer) Est GFR (Non-Af Amer) POC Glucose (mg/dL) 109 Random Glucose Calcium Phosphorus Magnesium Total Bilirubin AST ALT Alkaline Phosphatase Ammonia Lactate Dehydrogenase Total Creatine Kinase CK-MB (CK-2) CK-MB (CK-2) % Troponin I NT-Pro-B Natriuret Pep Total Protein Albumin Globulin Albumin/Globulin Ratio Triglycerides Cholesterol LDL Cholesterol Direct HDL Cholesterol Lipase Procalcitonin TSH 3rd Generation Arterial Blood Potassium Vancomycin Trough Assessment & Plan - Assessment and Plan (Free Text) Assessment: 62 year old female with history of HTN, OA,metastatic breast cancer,sepsis who is admitted with severe sepsis,bacteremia ,cardiomyopathy and AMS . Patient is more alert, able to follow simple command and answer simple questions. Periods of confusion. Medical team spoke with patient who expressed that she wanted to be fully resuscitated. Kaci NYE and myself spoke with brother in law Peter and son in law. Family aware of patients medical condition and extremely guarded prognosis. Ramif ications of CPR/intubation in patients with similar comorbidities explained in detail to family. Family verbalized understanding of possible outcomes. Explained that Ms. Matias or William will will encourage patient to nominate POA and complete documentation of this. Ms. Matias expressed that patient will likely need 24 hour care and that planning for placement should begin. Will also have more discussion with patient regarding goals of care once her thought processes are clearer and medical situation stabilizes. Times spent with family in goals of care discussion, 40 minutes Plan: Sepsis/ MRSA bacteremia: ID following , continue Vancomycin,Ampicillin, Merrem and anti viral Cardio: Continue Metoprolol, Apresoline, Plavix, Lipitor. Continue DVT prophylaxis [place] of care and advance care planning Pain Management: Oxycodone IR 30 mg as needed
--- NOTE | 2018-01-20 14:52 | CP.CCUPN ---
CCU Subjective - Physician Review Subjective (Free Text): Segundo Bartlett DO, PGY-1 ICU Progress Note for Dr. Marquez Patient was seen and examined at bedside this AM. She appears more alert and is oriented to person and place. Discussed with family at bedside whether patient wanted to pursue DNR status. At this time, patient states that she would prefer to be full code. CCU Objective - Vital Signs / Intake & Output Vital Signs (Last 4 hours): Vital Signs Pulse BP 01/20/18 11:30 119 H 139/73 Intake and Output (Last 8hrs): Intake & Output 01/19/18 01/20/18 01/20/18 22:59 06:59 14:59 Intake Total 4724 2346 142 Output Total 1700 1750 Balance 3024 596 142 Weight 144 lb 3.2 oz Intake: IV 4724 2346 142 Right Antecubital 1596 Right Forearm 4724 750 Output: Urine 1700 1750 Urethral (Miller) 1700 1750 Other: # Bowel Movements 5 1 - Physical Exam Head: Positive for: Atraumatic, Normocephalic Pupils: Positive for: PERRL Extroacular Muscles: Positive for: EOMI Mouth: Positive for: Moist Mucous Membranes Pharnyx: Positive for: Normal. Negative for: ERYTHEMA, EXUDATE Neck: Positive for: Normal Range of Motion. Negative for: JVD Respiratory/Chest: Positive for: Clear to Auscultation. Negative for: Accessory Muscle Use, Wheezes, Rales, Rhonchi Cardiovascular: Positive for: Normal S1, S2, Tachycardic. Negative for: Rub, Gallop Abdomen: Negative for: Tenderness, Rebound, Guarding Upper Extremity: Positive for: Normal Inspection. Negative for: Cyanosis Lower Extremity: Positive for: Normal Inspection. Negative for: Edema Neurological: Positive for: Motor Func Grossly Intact Skin: Positive for: Warm, Dry Psychiatric: Positive for: Alert (alert only to person and place, not oriented to time or situation, mental status improved from prior exams), Anxious - Medications Active Medications: Active Medications Generic Name Dose Route Start Last Admin Trade Name Freq PRN Reason Stop Dose Admin Aspirin 81 mg 01/19/18 10:00 01/20/18 09:13 Aspirin Chewable PO Not Given DAILY PENDING SALE TO [facility] Atorvastatin Calcium 40 mg 01/20/18 17:00 Lipitor PO DIN PENDING SALE TO [facility] Clopidogrel Bisulfate 75 mg 01/19/18 10:00 01/20/18 09:14 Plavix PO Not Given DAILY PENDING SALE TO [facility] Docusate Sodium 100 mg 01/19/18 10:00 01/20/18 13:10 Colace PO Not Given TID PENDING SALE TO [facility] Gabapentin 300 mg 01/19/18 10:00 01/20/18 13:10 Neurontin PO Not Given TID PENDING SALE TO [facility] Protocol Hydralazine HCl 50 mg 01/19/18 10:00 01/19/18 10:04 Apresoline PO Not Given TID OLGA Hydralazine HCl 10 mg 01/19/18 12:37 01/20/18 09:23 Apresoline IVP 10 mg Q6 PRN Administration for SBP>160 Vancomycin HCl 1 gm in 250 mls @ 167 mls/hr 01/18/18 22:00 01/20/18 09:19 Vancomycin 1gm IVPB 167 mls/hr Q12 OLGA Administration Protocol Sodium Chloride 1,000 mls @ 125 mls/hr 01/18/18 23:15 01/20/18 06:04 Sodium Chloride 0.9% IV 125 mls/hr .Q8H OLGA Administration Acetaminophen 1,000 mg in 100 mls @ 400 mls/hr 01/19/18 01:04 01/19/18 01:15 Ofirmev IVPB 01/21/18 01:05 400 mls/hr Q6H PRN Administration Pain, moderate (4-7) Meropenem 1 gm in 50 mls @ 100 mls/hr 01/19/18 07:15 01/20/18 13:14 Merrem Iv 1 Gm Premix IVPB 100 mls/hr Q8 OLGA Administration Protocol Acyclovir 600 mg/ Sodium 100 mls @ 100 mls/hr 01/19/18 07:15 01/20/18 06:04 Chloride IV 100 mls/hr Q8 OLGA Administration Protocol Ampicillin 2 gm/ Sodium 100 mls @ 200 mls/hr 01/19/18 12:00 01/20/18 11:05 Chloride IVPB 200 mls/hr Q6 OLGA Administration Protocol Heparin Sodium/Sodium Chloride 25,000 units in 250 mls @ 7.838 mls/hr 01/19/18 23:45 01/20/18 09:06 Heparin 23026 Units/250ml 1/2 Normal Saline IV 14 units/kg/hr .Q24H OLGA 9.144 mls/hr Titration Protocol 12 UNITS/KG/HR Potassium Chloride 10 meq in 100 mls @ 50 mls/hr 01/20/18 08:15 01/20/18 13:10 Potassium Chloride 10 Meq/100 Ml IVPB 01/20/18 20:14 50 mls/hr Q2H OLGA Administration Lisinopril 10 mg 01/19/18 10:00 01/20/18 09:14 Zestril PO Not Given DAILY OLGA Lorazepam 1 mg 01/18/18 17:44 01/19/18 10:33 Ativan IVP 1 mg Q6 PRN Administration Anxiety Protocol Metoprolol Tartrate 5 mg 01/19/18 12:30 01/20/18 11:30 Lopressor IVP 5 mg Q6H OLGA Administration Nitroglycerin 1 ea 01/20/18 10:30 01/20/18 11:07 Nitro-Bid 2% Oint TOP 1 ea Q6H OLGA Administration Ondansetron HCl 4 mg 01/20/18 12:41 Zofran Inj IVP Q6H PRN Nausea/Vomiting Oseltamivir Phosphate 75 mg 01/19/18 07:30 01/20/18 09:14 Tamiflu Susp PO 01/24/18 07:31 Not Given BID OLGA Protocol Oxycodone HCl 30 mg 01/18/18 23:31 Oxycodone Immediate Release Tab PO Q6H PRN Pain, severe (8-10) Pantoprazole Sodium 40 mg 01/19/18 10:00 01/20/18 09:18 Protonix Inj IVP 40 mg DAILY OLGA Administration - Patient Studies Lab Studies: Microbiology Studies 01/19/18 14:00 Blood Culture - Preliminary Blood-Venous NO GROWTH AFTER 24 HOURS 01/19/18 13:30 Blood Culture - Preliminary Blood-Thru Central Line NO GROWTH AFTER 24 HOURS 01/18/18 21:30 MRSA Culture (Admit) - Final Nose MRSA NOT DETECTED 01/18/18 14:48 Urine Culture - Final Urine,Catheterized No Growth (<1,000 CFU/ML) 01/18/18 22:30 C. difficile Antigen & Toxins A,B - Final Stool Lab Studies 01/20/18 01/20/18 01/20/18 Range/Units 11:06 10:00 07:23 WBC (4.5-11.0) 10^3/ul RBC (3.5-6.1) 10^6/uL Hgb (12.0-16.0) g/dL Hct (36.0-48.0) % MCV (80.0-105.0) fl MCH (25.0-35.0) pg MCHC (31.0-37.0) g/dl RDW (11.5-14.5) % Plt Count (120.0-450.0) 10^3/uL MPV (7.0-11.0) fl Gran % (50.0-68.0) % Lymph % (Auto) (22.0-35.0) % [place] % (Auto) (1.0-6.0) % Eos % (Auto) (1.5-5.0) % Baso % (Auto) (0.0-3.0) % Gran # (1.4-6.5) Lymph # (Auto) (1.2-3.4) [place] # (Auto) (0.1-0.6) Eos # (Auto) (0.0-0.7) Baso # (Auto) (0.0-2.0) K/mm3 Neutrophils % (Manual) (50.0-70.0) % Lymphocytes % (Manual) (22.0-35.0) % Monocytes % (Manual) (1.0-6.0) % Platelet Evaluation (NORMAL) Large Platelets APTT (25.1-36.5) Seconds pCO2 (35-45) mm/Hg pO2 (80-100) mm/Hg HCO3 (21-28) mmol/L ABG pH (7.35-7.45) ABG Total CO2 (22-28) mmol.L ABG O2 Saturation (95-98) % ABG Base Excess (-2.0-3.0) mmol/L ABG Potassium (3.6-5.2) mmol/L Sodium (132-148) mmol/L Chloride (98-107) mmol/L Glucose (65-105) mg/dl Lactate (0.7-2.1) mmol/L FiO2 % Potassium (3.6-5.0) mmol/L Carbon Dioxide (21-33) mmol/L Anion Gap (10-20) BUN (7-21) mg/dL Creatinine (0.7-1.2) mg/dl Est GFR ( Amer) Est GFR (Non-Af Amer) POC Glucose (mg/dL) 109 91 (65-110) mg/dL Random Glucose (70-110) mg/dL Calcium (8.4-10.5) mg/dL Phosphorus (2.5-4.5) mg/dL Magnesium (1.7-2.2) mg/dL Total Bilirubin (0.2-1.3) mg/dL AST (14-36) U/L ALT (7-56) U/L Alkaline Phosphatase (38-126) U/L Ammonia < 9 L (9-33) umol/L Lactate Dehydrogenase (333-699) U/L Total Creatine Kinase (35-230) U/L Troponin I ng/mL Total Protein (5.8-8.3) g/dL Albumin (3.0-4.8) g/dL Globulin gm/dL Albumin/Globulin Ratio (1.1-1.8) Triglycerides (35-160) mg/dL Cholesterol (130-200) mg/dL LDL Cholesterol Direct (0-129) mg/dL HDL Cholesterol (29-60) mg/dL TSH 3rd Generation (0.46-4.68) mIU/mL Arterial Blood Potassium (3.6-5.2) mmol/L Vancomycin Trough (5.0-10.0) ug/mL 01/20/18 01/20/18 01/20/18 Range/Units 06:40 06:40 06:40 WBC (4.5-11.0) 10^3/ul RBC (3.5-6.1) 10^6/uL Hgb (12.0-16.0) g/dL Hct (36.0-48.0) % MCV (80.0-105.0) fl MCH (25.0-35.0) pg MCHC (31.0-37.0) g/dl RDW (11.5-14.5) % Plt Count (120.0-450.0) 10^3/uL MPV (7.0-11.0) fl Gran % (50.0-68.0) % Lymph % (Auto) (22.0-35.0) % [place] % (Auto) (1.0-6.0) % Eos % (Auto) (1.5-5.0) % Baso % (Auto) (0.0-3.0) % Gran # (1.4-6.5) Lymph # (Auto) (1.2-3.4) [place] # (Auto) (0.1-0.6) Eos # (Auto) (0.0-0.7) Baso # (Auto) (0.0-2.0) K/mm3 Neutrophils % (Manual) (50.0-70.0) % Lymphocytes % (Manual) (22.0-35.0) % Monocytes % (Manual) (1.0-6.0) % Platelet Evaluation (NORMAL) Large Platelets APTT 39.0 H (25.1-36.5) Seconds pCO2 (35-45) mm/Hg pO2 (80-100) mm/Hg HCO3 (21-28) mmol/L ABG pH (7.35-7.45) ABG Total CO2 (22-28) mmol.L ABG O2 Saturation (95-98) % ABG Base Excess (-2.0-3.0) mmol/L ABG Potassium (3.6-5.2) mmol/L Sodium (132-148) mmol/L Chloride (98-107) mmol/L Glucose (65-105) mg/dl Lactate (0.7-2.1) mmol/L FiO2 % Potassium (3.6-5.0) mmol/L Carbon Dioxide (21-33) mmol/L Anion Gap (10-20) BUN (7-21) mg/dL Creatinine (0.7-1.2) mg/dl Est GFR ( Amer) Est GFR (Non-Af Amer) POC Glucose (mg/dL) (65-110) mg/dL Random Glucose (70-110) mg/dL Calcium (8.4-10.5) mg/dL Phosphorus (2.5-4.5) mg/dL Magnesium (1.7-2.2) mg/dL Total Bilirubin (0.2-1.3) mg/dL AST (14-36) U/L ALT (7-56) U/L Alkaline Phosphatase (38-126) U/L Ammonia (9-33) umol/L Lactate Dehydrogenase (333-699) U/L Total Creatine Kinase (35-230) U/L Troponin I ng/mL Total Protein (5.8-8.3) g/dL Albumin (3.0-4.8) g/dL Globulin gm/dL Albumin/Globulin Ratio (1.1-1.8) Triglycerides (35-160) mg/dL Cholesterol (130-200) mg/dL LDL Cholesterol Direct (0-129) mg/dL HDL Cholesterol (29-60) mg/dL TSH 3rd Generation 0.57 (0.46-4.68) mIU/mL Arterial Blood Potassium (3.6-5.2) mmol/L Vancomycin Trough 12.5 H (5.0-10.0) ug/mL 01/20/18 01/20/18 01/19/18 Range/Units 06:40 06:40 22:30 WBC 34.9 H* (4.5-11.0) 10^3/ul RBC 4.50 (3.5-6.1) 10^6/uL Hgb 12.2 (12.0-16.0) g/dL Hct 36.5 (36.0-48.0) % MCV 81.1 (80.0-105.0) fl MCH 27.1 (25.0-35.0) pg MCHC 33.4 (31.0-37.0) g/dl RDW 15.8 H (11.5-14.5) % Plt Count 326 (120.0-450.0) 10^3/uL MPV 11.1 H (7.0-11.0) fl Gran % 84.4 H (50.0-68.0) % Lymph % (Auto) 9.1 L (22.0-35.0) % [place] % (Auto) 6.4 H (1.0-6.0) % Eos % (Auto) 0.0 L (1.5-5.0) % Baso % (Auto) 0.1 (0.0-3.0) % Gran # 29.43 H (1.4-6.5) Lymph # (Auto) 3.2 (1.2-3.4) [place] # (Auto) 2.2 H (0.1-0.6) Eos # (Auto) 0.0 (0.0-0.7) Baso # (Auto) 0.03 (0.0-2.0) K/mm3 Neutrophils % (Manual) 88 H (50.0-70.0) % Lymphocytes % (Manual) 11 L (22.0-35.0) % Monocytes % (Manual) 1 (1.0-6.0) % Platelet Evaluation Normal (NORMAL) Large Platelets Present APTT 55.0 H (25.1-36.5) Seconds pCO2 (35-45) mm/Hg pO2 (80-100) mm/Hg HCO3 (21-28) mmol/L ABG pH (7.35-7.45) ABG Total CO2 (22-28) mmol.L ABG O2 Saturation (95-98) % ABG Base Excess (-2.0-3.0) mmol/L ABG Potassium (3.6-5.2) mmol/L Sodium 145 (132-148) mmol/L Chloride 118 H (98-107) mmol/L Glucose (65-105) mg/dl Lactate (0.7-2.1) mmol/L FiO2 % Potassium 2.9 L* (3.6-5.0) mmol/L Carbon Dioxide 17 L (21-33) mmol/L Anion Gap 13 (10-20) BUN 24 H (7-21) mg/dL Creatinine 0.6 L (0.7-1.2) mg/dl Est GFR ( Amer) > 60 Est GFR (Non-Af Amer) > 60 POC Glucose (mg/dL) (65-110) mg/dL Random Glucose 105 (70-110) mg/dL Calcium 9.4 (8.4-10.5) mg/dL Phosphorus 2.6 (2.5-4.5) mg/dL Magnesium 2.0 (1.7-2.2) mg/dL Total Bilirubin 2.5 H (0.2-1.3) mg/dL AST 77 H D (14-36) U/L ALT 27 (7-56) U/L Alkaline Phosphatase 106 (38-126) U/L Ammonia (9-33) umol/L Lactate Dehydrogenase 1079 H (333-699) U/L Total Creatine Kinase 138 (35-230) U/L Troponin I 3.95 H* D ng/mL Total Protein 7.4 (5.8-8.3) g/dL Albumin 3.3 (3.0-4.8) g/dL Globulin 4.1 gm/dL Albumin/Globulin Ratio 0.8 L (1.1-1.8) Triglycerides 85 (35-160) mg/dL Cholesterol 153 (130-200) mg/dL LDL Cholesterol Direct 74 (0-129) mg/dL HDL Cholesterol 39 (29-60) mg/dL TSH 3rd Generation (0.46-4.68) mIU/mL Arterial Blood Potassium (3.6-5.2) mmol/L Vancomycin Trough (5.0-10.0) ug/mL 01/19/18 01/19/18 01/19/18 Range/Units 22:30 22:03 17:00 WBC (4.5-11.0) 10^3/ul RBC (3.5-6.1) 10^6/uL Hgb (12.0-16.0) g/dL Hct (36.0-48.0) % MCV (80.0-105.0) fl MCH (25.0-35.0) pg MCHC (31.0-37.0) g/dl RDW (11.5-14.5) % Plt Count (120.0-450.0) 10^3/uL MPV (7.0-11.0) fl Gran % (50.0-68.0) % Lymph % (Auto) (22.0-35.0) % [place] % (Auto) (1.0-6.0) % Eos % (Auto) (1.5-5.0) % Baso % (Auto) (0.0-3.0) % Gran # (1.4-6.5) Lymph # (Auto) (1.2-3.4) [place] # (Auto) (0.1-0.6) Eos # (Auto) (0.0-0.7) Baso # (Auto) (0.0-2.0) K/mm3 Neutrophils % (Manual) (50.0-70.0) % Lymphocytes % (Manual) (22.0-35.0) % Monocytes % (Manual) (1.0-6.0) % Platelet Evaluation (NORMAL) Large Platelets APTT (25.1-36.5) Seconds pCO2 17 L* (35-45) mm/Hg pO2 69.0 L (80-100) mm/Hg HCO3 15.9 L (21-28) mmol/L ABG pH 7.58 H (7.35-7.45) ABG Total CO2 16.4 L (22-28) mmol.L ABG O2 Saturation 97.9 (95-98) % ABG Base Excess -3.2 L (-2.0-3.0) mmol/L ABG Potassium 2.8 L (3.6-5.2) mmol/L Sodium 144 142.0 (132-148) mmol/L Chloride 117 H 116.0 H (98-107) mmol/L Glucose 110 H (65-105) mg/dl Lactate 1.9 (0.7-2.1) mmol/L FiO2 30.0 % Potassium 3.2 L (3.6-5.0) mmol/L Carbon Dioxide 17 L (21-33) mmol/L Anion Gap 13 (10-20) BUN 23 H (7-21) mg/dL Creatinine 0.6 L (0.7-1.2) mg/dl Est GFR ( Amer) > 60 Est GFR (Non-Af Amer) > 60 POC Glucose (mg/dL) 107 (65-110) mg/dL Random Glucose 113 H (70-110) mg/dL Calcium 9.3 (8.4-10.5) mg/dL Phosphorus (2.5-4.5) mg/dL Magnesium (1.7-2.2) mg/dL Total Bilirubin (0.2-1.3) mg/dL AST (14-36) U/L ALT (7-56) U/L Alkaline Phosphatase (38-126) U/L Ammonia (9-33) umol/L Lactate Dehydrogenase 1013 H (333-699) U/L Total Creatine Kinase 220 (35-230) U/L Troponin I 5.59 H* D ng/mL Total Protein (5.8-8.3) g/dL Albumin (3.0-4.8) g/dL Globulin gm/dL Albumin/Globulin Ratio (1.1-1.8) Triglycerides (35-160) mg/dL Cholesterol (130-200) mg/dL LDL Cholesterol Direct (0-129) mg/dL HDL Cholesterol (29-60) mg/dL TSH 3rd Generation (0.46-4.68) mIU/mL Arterial Blood Potassium 2.8 L (3.6-5.2) mmol/L Vancomycin Trough (5.0-10.0) ug/mL 01/19/18 Range/Units 16:24 WBC (4.5-11.0) 10^3/ul RBC (3.5-6.1) 10^6/uL Hgb (12.0-16.0) g/dL Hct (36.0-48.0) % MCV (80.0-105.0) fl MCH (25.0-35.0) pg MCHC (31.0-37.0) g/dl RDW (11.5-14.5) % Plt Count (120.0-450.0) 10^3/uL MPV (7.0-11.0) fl Gran % (50.0-68.0) % Lymph % (Auto) (22.0-35.0) % [place] % (Auto) (1.0-6.0) % Eos % (Auto) (1.5-5.0) % Baso % (Auto) (0.0-3.0) % Gran # (1.4-6.5) Lymph # (Auto) (1.2-3.4) [place] # (Auto) (0.1-0.6) Eos # (Auto) (0.0-0.7) Baso # (Auto) (0.0-2.0) K/mm3 Neutrophils % (Manual) (50.0-70.0) % Lymphocytes % (Manual) (22.0-35.0) % Monocytes % (Manual) (1.0-6.0) % Platelet Evaluation (NORMAL) Large Platelets APTT (25.1-36.5) Seconds pCO2 (35-45) mm/Hg pO2 (80-100) mm/Hg HCO3 (21-28) mmol/L ABG pH (7.35-7.45) ABG Total CO2 (22-28) mmol.L ABG O2 Saturation (95-98) % ABG Base Excess (-2.0-3.0) mmol/L ABG Potassium (3.6-5.2) mmol/L Sodium (132-148) mmol/L Chloride (98-107) mmol/L Glucose (65-105) mg/dl Lactate (0.7-2.1) mmol/L FiO2 % Potassium (3.6-5.0) mmol/L Carbon Dioxide (21-33) mmol/L Anion Gap (10-20) BUN (7-21) mg/dL Creatinine (0.7-1.2) mg/dl Est GFR ( Amer) Est GFR (Non-Af Amer) POC Glucose (mg/dL) 114 H (65-110) mg/dL Random Glucose (70-110) mg/dL Calcium (8.4-10.5) mg/dL Phosphorus (2.5-4.5) mg/dL Magnesium (1.7-2.2) mg/dL Total Bilirubin (0.2-1.3) mg/dL AST (14-36) U/L ALT (7-56) U/L Alkaline Phosphatase (38-126) U/L Ammonia (9-33) umol/L Lactate Dehydrogenase (333-699) U/L Total Creatine Kinase (35-230) U/L Troponin I ng/mL Total Protein (5.8-8.3) g/dL Albumin (3.0-4.8) g/dL Globulin gm/dL Albumin/Globulin Ratio (1.1-1.8) Triglycerides (35-160) mg/dL Cholesterol (130-200) mg/dL LDL Cholesterol Direct (0-129) mg/dL HDL Cholesterol (29-60) mg/dL TSH 3rd Generation (0.46-4.68) mIU/mL Arterial Blood Potassium (3.6-5.2) mmol/L Vancomycin Trough (5.0-10.0) ug/mL Laboratory Results - last 24 hr 01/19/18 01/19/18 01/19/18 16:24 17:00 22:03 WBC RBC Hgb Hct MCV MCH MCHC RDW Plt Count MPV Gran % Lymph % (Auto) [place] % (Auto) Eos % (Auto) Baso % (Auto) Gran # Lymph # (Auto) [place] # (Auto) Eos # (Auto) Baso # (Auto) Neutrophils % (Manual) Lymphocytes % (Manual) Monocytes % (Manual) Platelet Evaluation Large Platelets APTT pCO2 17 L* pO2 69.0 L HCO3 15.9 L ABG pH 7.58 H ABG Total CO2 16.4 L ABG O2 Saturation 97.9 ABG Base Excess -3.2 L ABG Potassium 2.8 L Sodium 142.0 Chloride 116.0 H Glucose 110 H Lactate 1.9 FiO2 30.0 Potassium Carbon Dioxide Anion Gap BUN Creatinine Est GFR ( Amer) Est GFR (Non-Af Amer) POC Glucose (mg/dL) 114 H 107 Random Glucose Calcium Phosphorus Magnesium Total Bilirubin AST ALT Alkaline Phosphatase Ammonia Lactate Dehydrogenase Total Creatine Kinase Troponin I Total Protein Albumin Globulin Albumin/Globulin Ratio Triglycerides Cholesterol LDL Cholesterol Direct HDL Cholesterol TSH 3rd Generation Arterial Blood Potassium 2.8 L Vancomycin Trough 01/19/18 01/19/18 01/20/18 22:30 22:30 06:40 WBC 34.9 H* RBC 4.50 Hgb 12.2 Hct 36.5 MCV 81.1 MCH 27.1 MCHC 33.4 RDW 15.8 H Plt Count 326 MPV 11.1 H Gran % 84.4 H Lymph % (Auto) 9.1 L [place] % (Auto) 6.4 H Eos % (Auto) 0.0 L Baso % (Auto) 0.1 Gran # 29.43 H Lymph # (Auto) 3.2 [place] # (Auto) 2.2 H Eos # (Auto) 0.0 Baso # (Auto) 0.03 Neutrophils % (Manual) 88 H Lymphocytes % (Manual) 11 L Monocytes % (Manual) 1 Platelet Evaluation Normal Large Platelets Present APTT 55.0 H pCO2 pO2 HCO3 ABG pH ABG Total CO2 ABG O2 Saturation ABG Base Excess ABG Potassium Sodium 144 Chloride 117 H Glucose Lactate FiO2 Potassium 3.2 L Carbon Dioxide 17 L Anion Gap 13 BUN 23 H Creatinine 0.6 L Est GFR ( Amer) > 60 Est GFR (Non-Af Amer) > 60 POC Glucose (mg/dL) Random Glucose 113 H Calcium 9.3 Phosphorus Magnesium Total Bilirubin AST ALT Alkaline Phosphatase Ammonia Lactate Dehydrogenase 1013 H Total Creatine Kinase 220 Troponin I 5.59 H* D Total Protein Albumin Globulin Albumin/Globulin Ratio Triglycerides Cholesterol LDL Cholesterol Direct HDL Cholesterol TSH 3rd Generation Arterial Blood Potassium Vancomycin Trough 01/20/18 01/20/18 01/20/18 06:40 06:40 06:40 WBC RBC Hgb Hct MCV MCH MCHC RDW Plt Count MPV Gran % Lymph % (Auto) [place] % (Auto) Eos % (Auto) Baso % (Auto) Gran # Lymph # (Auto) [place] # (Auto) Eos # (Auto) Baso # (Auto) Neutrophils % (Manual) Lymphocytes % (Manual) Monocytes % (Manual) Platelet Evaluation Large Platelets APTT pCO2 pO2 HCO3 ABG pH ABG Total CO2 ABG O2 Saturation ABG Base Excess ABG Potassium Sodium 145 Chloride 118 H Glucose Lactate FiO2 Potassium 2.9 L* Carbon Dioxide 17 L Anion Gap 13 BUN 24 H Creatinine 0.6 L Est GFR ( Amer) > 60 Est GFR (Non-Af Amer) > 60 POC Glucose (mg/dL) Random Glucose 105 Calcium 9.4 Phosphorus 2.6 Magnesium 2.0 Total Bilirubin 2.5 H AST 77 H D ALT 27 Alkaline Phosphatase 106 Ammonia Lactate Dehydrogenase 1079 H Total Creatine Kinase 138 Troponin I 3.95 H* D Total Protein 7.4 Albumin 3.3 Globulin 4.1 Albumin/Globulin Ratio 0.8 L Triglycerides 85 Cholesterol 153 LDL Cholesterol Direct 74 HDL Cholesterol 39 TSH 3rd Generation 0.57 Arterial Blood Potassium Vancomycin Trough 12.5 H 01/20/18 01/20/18 01/20/18 06:40 07:23 10:00 WBC RBC Hgb Hct MCV MCH MCHC RDW Plt Count MPV Gran % Lymph % (Auto) [place] % (Auto) Eos % (Auto) Baso % (Auto) Gran # Lymph # (Auto) [place] # (Auto) Eos # (Auto) Baso # (Auto) Neutrophils % (Manual) Lymphocytes % (Manual) Monocytes % (Manual) Platelet Evaluation Large Platelets APTT 39.0 H pCO2 pO2 HCO3 ABG pH ABG Total CO2 ABG O2 Saturation ABG Base Excess ABG Potassium Sodium Chloride Glucose Lactate FiO2 Potassium Carbon Dioxide Anion Gap BUN Creatinine Est GFR ( Amer) Est GFR (Non-Af Amer) POC Glucose (mg/dL) 91 Random Glucose Calcium Phosphorus Magnesium Total Bilirubin AST ALT Alkaline Phosphatase Ammonia < 9 L Lactate Dehydrogenase Total Creatine Kinase Troponin I Total Protein Albumin Globulin Albumin/Globulin Ratio Triglycerides Cholesterol LDL Cholesterol Direct HDL Cholesterol TSH 3rd Generation Arterial Blood Potassium Vancomycin Trough 01/20/18 11:06 WBC RBC Hgb Hct MCV MCH MCHC RDW Plt Count MPV Gran % Lymph % (Auto) [place] % (Auto) Eos % (Auto) Baso % (Auto) Gran # Lymph # (Auto) [place] # (Auto) Eos # (Auto) Baso # (Auto) Neutrophils % (Manual) Lymphocytes % (Manual) Monocytes % (Manual) Platelet Evaluation Large Platelets APTT pCO2 pO2 HCO3 ABG pH ABG Total CO2 ABG O2 Saturation ABG Base Excess ABG Potassium Sodium Chloride Glucose Lactate FiO2 Potassium Carbon Dioxide Anion Gap BUN Creatinine Est GFR ( Amer) Est GFR (Non-Af Amer) POC Glucose (mg/dL) 109 Random Glucose Calcium Phosphorus Magnesium Total Bilirubin AST ALT Alkaline Phosphatase Ammonia Lactate Dehydrogenase Total Creatine Kinase Troponin I Total Protein Albumin Globulin Albumin/Globulin Ratio Triglycerides Cholesterol LDL Cholesterol Direct HDL Cholesterol TSH 3rd Generation Arterial Blood Potassium Vancomycin Trough Review of Systems - Review of Systems Systems not reviewed;Unavailable: Altered Mental Status Critical Care Progress Note - Nutrition Nutrition: Nutrition Category Date Time Status NPO Diet [DIET] Diets 01/18/18 Dinner Ordered Assessment/Plan - Assessment and Plan (Free Text) Assessment: 62 yo F admitted to MICU for severe sepsis and altered mental status. She had persistent tachycardia yesterday, EKG was completed, and was subsequently found to have STEMI with troponin of 7.47. Plan: Neuro: Alert only to person and place, not to time or situation Unable to say who president is or what town she lived in Recognizes two relatives and converses with them Mental status improving from prior exams, more alert today No other focal neurological deficits, moving all extremities Neurology consulted, recs appreciated Cardio: Troponin down to 3.95 from 7.47 after starting heparin drip EKG completed yesterday for persistent tachycardia found ST elevation Echo completed yesterday with mild effusion, EF of 20% Continue heparin drip per cardiology recs Continue lopressor Continue to monitor HR Cardiology following, recs appreciated Pulm: CTA b/l No signs of acute respiratory distress CXR on admission unremarkable Continue to maintain SpO2 > 95% O2 NC PRN GI: Nauseated this AM, improved with zofran FOBT positive on admission GI recommended conservative treatment at this time Will restart HHD as tolerated /Nephro: Persistent hypokalemia, continue to replete Miller in place BUN/Cr stable, continue to monitor UOP > 3 L Maintain euvolemia ID: On broad spectrum coverage of vanc, merem, ampicillin, acyclovir Unclear etiology of sepsis at this point LP pending Heme/Onc: H/H stable at 12.2/36.5 Leukocytosis 2/2 sepsis worsening Continue to monitor H/H, s/sx of HD compromise GI/DVT PPX: Protonix, heparin drip, SCDs Full Code Stable for transfer to telemetry Case and plan reviewed and discussed with my attending Dr. Jimmy Bartlett, DO IM Resident PGY-1
--- NOTE | 2018-01-20 15:07 | CP.PCM.PN ---
Subjective - Date & Time of Evaluation Date of Evaluation: 01/20/18 Time of Evaluation: 09:10 - Subjective Subjective: No fevers this morning, a little more awake today and trying to converse, a little better compared to yesterday, still tachycardic. Objective - Vital Signs/Intake and Output Vital Signs (last 24 hours): Temp Pulse Resp BP Pulse Ox 98.4 F 119 H 50 H 139/73 97 01/20/18 07:10 01/20/18 11:30 01/20/18 07:10 01/20/18 11:30 01/20/18 07:10 Intake and Output: 01/20/18 01/20/18 06:59 18:59 Intake Total 2346 142 Output Total 1750 Balance 596 142 - Medications Medications: Current Medications Aspirin (Aspirin Chewable) 81 mg PO DAILY [facility] Last Admin: 01/20/18 09:13 Dose: Not Given Atorvastatin Calcium (Lipitor) 40 mg PO DIN [facility] Clopidogrel Bisulfate (Plavix) 75 mg PO DAILY [facility] Last Admin: 01/20/18 09:14 Dose: Not Given Docusate Sodium (Colace) 100 mg PO TID [facility] Last Admin: 01/20/18 13:10 Dose: Not Given Gabapentin (Neurontin) 300 mg PO TID [facility]; Protocol Last Admin: 01/20/18 13:10 Dose: Not Given Hydralazine HCl (Apresoline) 50 mg PO TID [facility] Last Admin: 01/19/18 10:04 Dose: Not Given Hydralazine HCl (Apresoline) 10 mg IVP Q6 PRN PRN Reason: for SBP>160 Last Admin: 01/20/18 09:23 Dose: 10 mg Vancomycin HCl (Vancomycin 1gm) 1 gm in 250 mls @ 167 mls/hr IVPB Q12 [facility]; Protocol Last Admin: 01/20/18 09:19 Dose: 167 mls/hr Sodium Chloride (Sodium Chloride 0.9%) 1,000 mls @ 125 mls/hr IV .Q8H [facility] Last Admin: 01/20/18 06:04 Dose: 125 mls/hr Acetaminophen (Ofirmev) 1,000 mg in 100 mls @ 400 mls/hr IVPB Q6H PRN PRN Reason: Pain, moderate (4-7) Stop: 01/21/18 01:05 Last Admin: 01/19/18 01:15 Dose: 400 mls/hr Meropenem (Merrem Iv 1 Gm Premix) 1 gm in 50 mls @ 100 mls/hr IVPB Q8 [facility]; Protocol Last Admin: 01/20/18 13:14 Dose: 100 mls/hr Acyclovir 600 mg/ Sodium (Chloride) 100 mls @ 100 mls/hr IV Q8 [facility]; Protocol Last Admin: 01/20/18 14:54 Dose: 100 mls/hr Ampicillin 2 gm/ Sodium (Chloride) 100 mls @ 200 mls/hr IVPB Q6 [facility]; Protocol Last Admin: 01/20/18 11:05 Dose: 200 mls/hr Heparin Sodium/Sodium Chloride (Heparin 18503 Units/250ml 1/2 Normal Saline) 25,000 units in 250 mls @ 7.838 mls/hr IV .Q24H [facility]; Protocol Last Titration: 01/20/18 09:06 Dose: 14 units/kg/hr, 9.144 mls/hr Potassium Chloride (Potassium Chloride 10 Meq/100 Ml) 10 meq in 100 mls @ 50 mls/hr IVPB Q2H [facility] Stop: 01/20/18 20:14 Last Admin: 01/20/18 14:53 Dose: 50 mls/hr Lisinopril (Zestril) 10 mg PO DAILY [facility] Last Admin: 01/20/18 09:14 Dose: Not Given Lorazepam (Ativan) 1 mg IVP Q6 PRN; Protocol PRN Reason: Anxiety Last Admin: 01/19/18 10:33 Dose: 1 mg Metoprolol Tartrate (Lopressor) 5 mg IVP Q6H [facility] Last Admin: 01/20/18 11:30 Dose: 5 mg Nitroglycerin (Nitro-Bid 2% Oint) 1 ea TOP Q6H [facility] Last Admin: 01/20/18 11:07 Dose: 1 ea Ondansetron HCl (Zofran Inj) 4 mg IVP Q6H PRN PRN Reason: Nausea/Vomiting Oseltamivir Phosphate (Tamiflu Susp) 75 mg PO BID [facility]; Protocol Stop: 01/24/18 07:31 Last Admin: 01/20/18 09:14 Dose: Not Given Oxycodone HCl (Oxycodone Immediate Release Tab) 30 mg PO Q6H PRN PRN Reason: Pain, severe (8-10) Pantoprazole Sodium (Protonix Inj) 40 mg IVP DAILY [facility] Last Admin: 01/20/18 09:18 Dose: 40 mg - Labs Labs: 01/20/18 06:40 01/20/18 06:40 PT 21.6 SECONDS (9.4-12.5) H 01/19/18 05:00 INR 1.85 01/19/18 05:00 APTT 39.0 Seconds (25.1-36.5) H 01/20/18 06:40 - Constitutional Appears: In Acute Distress, Chronically Ill - Head Exam Head Exam: NORMAL INSPECTION - Neck Exam Neck Exam: absent: Meningismus - Respiratory Exam Respiratory Exam: Decreased Breath Sounds - Cardiovascular Exam Cardiovascular Exam: +S1, +S2 - GI/Abdominal Exam GI & Abdominal Exam: Soft. absent: Tenderness Assessment and Plan - Assessment and Plan (Free Text) Plan: Assessment systemic inflammatory response syndrome with acute encephalopathy, consider severe sepsis due to Staph aureus bacteremia, R/O CLABSI, R/O endocarditis R/O meningoencephalitis metastatic breast cancer on chemotherapy history of maculopapular rash with eosinophilia, consider allergic reaction R/O drug-induced history of sepsis due to Methicillin-sensitive Staph aureus bacteremia HTN osteoporosis former drug user Plan has been given a dose of IV Daptomycin, and will continue Vancomycin, Merrem, Ampicillin, Acyclovir day 2 for now pending final blood cx, urine cx results; reviewed CXR which does not show infiltrates; since there is Staph aureus bacteremia, meningitis is less likely, but would recommend MRI brain with contrast to check for suggestions of HSV encephalitis; discussed with Dr. Hare (Neurology) will continue monitor clinically overall prognosis is poor discussed extensively with son-in-law at bedside
--- NOTE | 2018-01-20 15:38 | PN ---
DATE: 01/20/2018 REASON FOR CONSULTATION: Follow up, abnormal EKG, global ST elevation, possible WI, sepsis, breast CA with mets, altered mental status, two-point positive restraint. SUBJECTIVE: Patient obtunded, responded minimal to verbal stimuli, but responded to painful stimuli. On waking up, denies any chest pain. PHYSICAL EXAMINATION: VITAL SIGNS: Temperature afebrile. Heart rate 99, blood pressure 172/96. HEENT: PERRLA, extraocular muscles intact. NECK: Supple. No carotid bruits, no thyromegaly. CHEST: Clear to auscultation. HEART: S1, S2, regular. ABDOMEN: Soft. EXTREMITIES: Clubbing, cyanosis negative. LABORATORY DATA: Blood workup as follows: WBC 34.9, hemoglobin 12.2, hematocrit 36.5, platelets 326. Chemistry showed sodium 149, potassium 2.9, chloride 118, carbon dioxide 19, anion gap of 13, BUN 24, creatinine 0.6. Troponin 5.9, trending 3.95. IMPRESSION: A 62-year-old female with past medical history significant for breast CA with metastasis, admitted with sepsis, elevated WBC, history of recent chemotherapy a week and a half ago. Admitted with weak, lethargic, methicillin-resistant Staphylococcus aureus sepsis, altered mental status, blood culture growing staph aureus. No complaints with chest pain though the patient has ST elevation. EKG stat done yesterday to rule out pericardial effusion that shows significantly decreased LV function, severe anterior wall hypokinesis. Patient is asymptomatic, not a candidate to go to microbiology lab analyst because of severe sepsis, asymptomatic and altered mental status, probably infarcted, sometime we are catching the tail end of the troponin, which is trending down. RECOMMENDATIONS: Treat conservatively. Since the blood pressure is stable, now will give adequate beta deandre, nitrates as blood pressure is tolerated, BRIANNA inhibitors, atorvastatin, aspirin, Plavix. Overall patient's condition is critical. Prognosis is extremely guarded. Discussed with two brother in law, they were the next of kin. No other family member is available. Will follow with you. Overall patient's condition is critical. oysterman prognosis is guarded. We will follow with you. We will change metoprolol to p.o. and put BRIANNA inhibitor as well. If the patient cannot take p.o., then will continue IV for now. Once the patient started adequate p.o., we will change to beta deandre p.o. and then continue aspirin, Plavix, atorvastatin and nitrates as blood pressure is tolerated. Discussed with family about the code status. We will also ask Joanne Matamoros to discuss with family about DNR/DNI. We will aggressively supplement potassium. Ignacio Perry MD
[2018-01-20 17:01] LABS: BLOOD UREA NITROGEN 25 mg/dL (7-21); GFR NON-AFRICAN AMERICAN > 60
[2018-01-20 17:02] LABS: CALCIUM 9.1 mg/dL (8.4-10.5)
--- NOTE | 2018-01-20 17:28 | CP.PCM.CON ---
<KailynShannan - Last Filed: 01/20/18 17:10> History of Present Illness - History of Present Illness History of Present Illness: Shannan Avina, PGY2, Neurology Consult Note for Dr. Hare: Reason for consult: severe sepsis; ?need for LP 62 F, referred by Dr Silva, w/ PMH of stage IV invasive ductal carcinoma/breast cancer with bone mets on chemo, MSSA bacteremia, HTN, CAD, and OA presented to ED on 01/18 for altered mental status after home health aide found her to be confused, febrile at home. At the time of my exam, patient awake, oriented to self only, seldomly follows commands. Most HPI obtained from prior chart review/peoplesoft consultant/staff. In ED, code sepsis was called, admitted for severe sepsis w/ lactic acid 7.8, wbc 26.5 with bandemia, fever 102.8. Patient then also noted to have global ST elevations with elevated trops, Cardiology deemed her poor candidate for cardiac cath due to comorbidities. Neurology consulted for AMS. ROS limited due to patient's AMS. PMH: stage IV invasive ductal carcinoma/breast cancer with bone mets on chemo (last session 1.5 weeks ago at [facility]), MSSA bacteremia, HTN, CAD, and OA PSH: R hip and ankle surgery Home Meds: Prednisone, Oxycodone 30 q6 PRN, Hydralazine 50 TID, Ranitidine 100 daily, KCl 20 daily, Lopressor 50 BID, Lisinopril 10 daily, Hydroxyzine 25 q8 PRN, Neurontin 300 TID, Lasix 20 daily, Doxycycline 100 q12, Colace 100 TID, Plavix 75 daily, Betamethasone 50g BID PRN, ASA 81 daily Allergy: NKDA Family Hx: daughter ( of CHF @ 34yo) Social Hx: denies tobacco, alcohol, drug use PMD: Dr. Crooks Oncologist: Dr. Charles ([place]) Review of Systems - Review of Systems Systems not reviewed;Unavailable: Altered Mental Status Past Patient History - Infectious Disease Hx of Infectious Diseases: None - Tetanus Immunizations Tetanus Immunization: Unknown - Past Social History Smoking Status: Never Smoked Alcohol: None Drugs: Denies Home Situation {Lives}: Other - CARDIAC Hx Hypertension: Yes - PULMONARY Hx Respiratory Disorders: No - NEUROLOGICAL Hx Neurological Disorder: No - HEENT Hx HEENT Problems: No - RENAL Hx Chronic Kidney Disease: No - ENDOCRINE/METABOLIC Hx Endocrine Disorders: No - HEMATOLOGICAL/ONCOLOGICAL Hx Cancer: Yes (Breast, mets to bone; s/p chemo treatments) - INTEGUMENTARY Hx Dermatological Problems: No - MUSCULOSKELETAL/RHEUMATOLOGICAL Hx Falls: No - GASTROINTESTINAL Hx Gastrointestinal Disorders: No - GENITOURINARY/GYNECOLOGICAL Hx Genitourinary Disorders: No - PSYCHIATRIC Hx Anxiety: Yes Hx Substance Use: No - SURGICAL HISTORY Hx Mastectomy: No Other/Comment: stage 4 breast, bone ca - ANESTHESIA Hx Anesthesia Reactions: No Hx Malignant Hyperthermia: No Meds Allergies/Adverse Reactions: Allergies Allergy/AdvReac Type Severity Reaction Status Date / Time No Known Allergies Allergy Verified 07/28/17 11:57 - Medications Medications: Current Medications Aspirin (Aspirin Chewable) 81 mg PO DAILY [facility] Last Admin: 01/20/18 09:13 Dose: Not Given Atorvastatin Calcium (Lipitor) 40 mg PO DIN [facility] Clopidogrel Bisulfate (Plavix) 75 mg PO DAILY [facility] Last Admin: 01/20/18 09:14 Dose: Not Given Docusate Sodium (Colace) 100 mg PO TID [facility] Last Admin: 01/20/18 13:10 Dose: Not Given Gabapentin (Neurontin) 300 mg PO TID [facility]; Protocol Last Admin: 01/20/18 13:10 Dose: Not Given Hydralazine HCl (Apresoline) 50 mg PO TID [facility] Last Admin: 01/19/18 10:04 Dose: Not Given Hydralazine HCl (Apresoline) 10 mg IVP Q6 PRN PRN Reason: for SBP>160 Last Admin: 01/20/18 09:23 Dose: 10 mg Vancomycin HCl (Vancomycin 1gm) 1 gm in 250 mls @ 167 mls/hr IVPB Q12 [facility]; Protocol Last Admin: 01/20/18 09:19 Dose: 167 mls/hr Sodium Chloride (Sodium Chloride 0.9%) 1,000 mls @ 125 mls/hr IV .Q8H [facility] Last Admin: 01/20/18 06:04 Dose: 125 mls/hr Acetaminophen (Ofirmev) 1,000 mg in 100 mls @ 400 mls/hr IVPB Q6H PRN PRN Reason: Pain, moderate (4-7) Stop: 01/21/18 01:05 Last Admin: 01/19/18 01:15 Dose: 400 mls/hr Meropenem (Merrem Iv 1 Gm Premix) 1 gm in 50 mls @ 100 mls/hr IVPB Q8 [facility]; Protocol Last Admin: 01/20/18 13:14 Dose: 100 mls/hr Acyclovir 600 mg/ Sodium (Chloride) 100 mls @ 100 mls/hr IV Q8 [facility]; Protocol Last Admin: 01/20/18 14:54 Dose: 100 mls/hr Ampicillin 2 gm/ Sodium (Chloride) 100 mls @ 200 mls/hr IVPB Q6 [facility]; Protocol Last Admin: 01/20/18 11:05 Dose: 200 mls/hr Heparin Sodium/Sodium Chloride (Heparin 98987 Units/250ml 1/2 Normal Saline) 25,000 units in 250 mls @ 7.838 mls/hr IV .Q24H [facility]; Protocol Last Titration: 01/20/18 09:06 Dose: 14 units/kg/hr, 9.144 mls/hr Potassium Chloride (Potassium Chloride 10 Meq/100 Ml) 10 meq in 100 mls @ 50 mls/hr IVPB Q2H [facility] Stop: 01/20/18 20:14 Last Admin: 01/20/18 15:40 Dose: 50 mls/hr Lisinopril (Zestril) 10 mg PO DAILY [facility] Last Admin: 01/20/18 09:14 Dose: Not Given Lorazepam (Ativan) 1 mg IVP Q6 PRN; Protocol PRN Reason: Anxiety Last Admin: 01/19/18 10:33 Dose: 1 mg Metoprolol Tartrate (Lopressor) 5 mg IVP Q6H [facility] Last Admin: 01/20/18 11:30 Dose: 5 mg Nitroglycerin (Nitro-Bid 2% Oint) 1 ea TOP Q6H [facility] Last Admin: 01/20/18 16:06 Dose: 1 ea Ondansetron HCl (Zofran Inj) 4 mg IVP Q6H PRN PRN Reason: Nausea/Vomiting Oseltamivir Phosphate (Tamiflu Susp) 75 mg PO BID [facility]; Protocol Stop: 01/24/18 07:31 Last Admin: 01/20/18 09:14 Dose: Not Given Oxycodone HCl (Oxycodone Immediate Release Tab) 30 mg PO Q6H PRN PRN Reason: Pain, severe (8-10) Pantoprazole Sodium (Protonix Inj) 40 mg IVP DAILY [facility] Last Admin: 01/20/18 09:18 Dose: 40 mg Physical Exam - Constitutional Appears: Non-toxic, Older Than Stated Age, Chronically Ill - Head Exam Head Exam: ATRAUMATIC, NORMOCEPHALIC - Eye Exam Eye Exam: EOMI, PERRL. absent: Conjunctival injection, Nystagmus, Scleral icterus Pupil Exam: NORMAL ACCOMODATION, PERRL. absent: Irregular, Miosis, Mydriatic, Unequal - ENT Exam ENT Exam: Mucous Membranes Moist - Neck Exam Neck exam: Positive for: Full Rom, Normal Inspection. Negative for: Lymphadenopathy, Meningismus, Tenderness, Thyromegaly Additional comments: negative Kernigs and Brudzinskis signs - Respiratory Exam Respiratory Exam: Clear to Auscultation Bilateral, NORMAL BREATHING PATTERN. absent: Accessory Muscle Use, Prolonged Expiratory Phase, Rales, Rhonchi, Wheezes, Respiratory Distress, Stridor - Cardiovascular Exam Cardiovascular Exam: RRR, +S1, +S2, Systolic Murmur - GI/Abdominal Exam GI & Abdominal Exam: Normal Bowel Sounds, Soft. absent: Distended, Organo megaly, Tenderness - Extremities Exam Extremities exam: Positive for: normal inspection. Negative for: calf tenderness, pedal edema - Back Exam Back exam: NORMAL INSPECTION - Neurological Exam Neurological exam: Alert, Altered, Reflexes Normal Additional comments: oriented to person and place only, has lucid intervals. Unable to assess CN II- XII as patient is not following commands. Moves all extremities Negative Kernig, Brudzinski signs - Skin Skin Exam: Normal Color, Warm Results - Vital Signs Recent Vital Signs: Last Vital Signs Temp 97.7 F 01/20/18 15:00 Pulse 109 H 01/20/18 15:00 Resp 36 H 01/20/18 15:00 BP 145/89 01/20/18 15:00 Pulse Ox 96 01/20/18 15:00 - Labs Result Diagrams: 01/20/18 06:40 01/20/18 16:35 Labs: Laboratory Results - last 24 hr 01/19/18 01/19/18 01/19/18 16:24 22:03 22:30 WBC RBC Hgb Hct MCV MCH MCHC RDW Plt Count MPV Gran % Lymph % (Auto) [place] % (Auto) Eos % (Auto) Baso % (Auto) Gran # Lymph # (Auto) [place] # (Auto) Eos # (Auto) Baso # (Auto) Neutrophils % (Manual) Lymphocytes % (Manual) Monocytes % (Manual) Platelet Evaluation Large Platelets APTT Sodium 144 Potassium 3.2 L Chloride 117 H Carbon Dioxide 17 L Anion Gap 13 BUN 23 H Creatinine 0.6 L Est GFR ( Amer) > 60 Est GFR (Non-Af Amer) > 60 POC Glucose (mg/dL) 114 H 107 Random Glucose 113 H Hemoglobin A1c Calcium 9.3 Phosphorus Magnesium Total Bilirubin AST ALT Alkaline Phosphatase Ammonia Lactate Dehydrogenase 1013 H Total Creatine Kinase 220 Troponin I 5.59 H* D Total Protein Albumin Globulin Albumin/Globulin Ratio Triglycerides Cholesterol LDL Cholesterol Direct HDL Cholesterol TSH 3rd Generation Vancomycin Trough 01/19/18 01/20/18 01/20/18 22:30 06:40 06:40 WBC 34.9 H* RBC 4.50 Hgb 12.2 Hct 36.5 MCV 81.1 MCH 27.1 MCHC 33.4 RDW 15.8 H Plt Count 326 MPV 11.1 H Gran % 84.4 H Lymph % (Auto) 9.1 L [place] % (Auto) 6.4 H Eos % (Auto) 0.0 L Baso % (Auto) 0.1 Gran # 29.43 H Lymph # (Auto) 3.2 [place] # (Auto) 2.2 H Eos # (Auto) 0.0 Baso # (Auto) 0.03 Neutrophils % (Manual) 88 H Lymphocytes % (Manual) 11 L Monocytes % (Manual) 1 Platelet Evaluation Normal Large Platelets Present APTT 55.0 H Sodium 145 Potassium 2.9 L* Chloride 118 H Carbon Dioxide 17 L Anion Gap 13 BUN 24 H Creatinine 0.6 L Est GFR ( Amer) > 60 Est GFR (Non-Af Amer) > 60 POC Glucose (mg/dL) Random Glucose 105 Hemoglobin A1c Calcium 9.4 Phosphorus 2.6 Magnesium 2.0 Total Bilirubin 2.5 H AST 77 H D ALT 27 Alkaline Phosphatase 106 Ammonia Lactate Dehydrogenase 1079 H Total Creatine Kinase 138 Troponin I 3.95 H* D Total Protein 7.4 Albumin 3.3 Globulin 4.1 Albumin/Globulin Ratio 0.8 L Triglycerides 85 Cholesterol 153 LDL Cholesterol Direct 74 HDL Cholesterol 39 TSH 3rd Generation Vancomycin Trough 01/20/18 01/20/18 01/20/18 06:40 06:40 06:40 WBC RBC Hgb Hct MCV MCH MCHC RDW Plt Count MPV Gran % Lymph % (Auto) [place] % (Auto) Eos % (Auto) Baso % (Auto) Gran # Lymph # (Auto) [place] # (Auto) Eos # (Auto) Baso # (Auto) Neutrophils % (Manual) Lymphocytes % (Manual) Monocytes % (Manual) Platelet Evaluation Large Platelets APTT Sodium Potassium Chloride Carbon Dioxide Anion Gap BUN Creatinine Est GFR ( Amer) Est GFR (Non-Af Amer) POC Glucose (mg/dL) Random Glucose Hemoglobin A1c 5.1 Calcium Phosphorus Magnesium Total Bilirubin AST ALT Alkaline Phosphatase Ammonia Lactate Dehydrogenase Total Creatine Kinase Troponin I Total Protein Albumin Globulin Albumin/Globulin Ratio Triglycerides Cholesterol LDL Cholesterol Direct HDL Cholesterol TSH 3rd Generation 0.57 Vancomycin Trough 12.5 H 01/20/18 01/20/18 01/20/18 06:40 07:23 10:00 WBC RBC Hgb Hct MCV MCH MCHC RDW Plt Count MPV Gran % Lymph % (Auto) [place] % (Auto) Eos % (Auto) Baso % (Auto) Gran # Lymph # (Auto) [place] # (Auto) Eos # (Auto) Baso # (Auto) Neutrophils % (Manual) Lymphocytes % (Manual) Monocytes % (Manual) Platelet Evaluation Large Platelets APTT 39.0 H Sodium Potassium Chloride Carbon Dioxide Anion Gap BUN Creatinine Est GFR ( Amer) Est GFR (Non-Af Amer) POC Glucose (mg/dL) 91 Random Glucose Hemoglobin A1c Calcium Phosphorus Magnesium Total Bilirubin AST ALT Alkaline Phosphatase Ammonia < 9 L Lactate Dehydrogenase Total Creatine Kinase Troponin I Total Protein Albumin Globulin Albumin/Globulin Ratio Triglycerides Cholesterol LDL Cholesterol Direct HDL Cholesterol TSH 3rd Generation Vancomycin Trough 01/20/18 01/20/18 01/20/18 11:06 15:30 16:35 WBC RBC Hgb Hct MCV MCH MCHC RDW Plt Count MPV Gran % Lymph % (Auto) [place] % (Auto) Eos % (Auto) Baso % (Auto) Gran # Lymph # (Auto) [place] # (Auto) Eos # (Auto) Baso # (Auto) Neutrophils % (Manual) Lymphocytes % (Manual) Monocytes % (Manual) Platelet Evaluation Large Platelets APTT 67.3 H Sodium 143 Potassium 4.3 Chloride 120 H Carbon Dioxide 15 L Anion Gap 12 BUN 25 H Creatinine 0.6 L Est GFR ( Amer) > 60 Est GFR (Non-Af Amer) > 60 POC Glucose (mg/dL) 109 Random Glucose 100 Hemoglobin A1c Calcium 9.1 Phosphorus Magnesium Total Bilirubin AST ALT Alkaline Phosphatase Ammonia Lactate Dehydrogenase Total Creatine Kinase Troponin I Total Protein Albumin Globulin Albumin/Globulin Ratio Triglycerides Cholesterol LDL Cholesterol Direct HDL Cholesterol TSH 3rd Generation Vancomycin Trough Assessment & Plan - Assessment and Plan (Free Text) Assessment: 62 F with PMH stage IV invasive ductal carcinoma/breast cancer with bone mets on chemo (last session 1.5 weeks ago at [facility]), MSSA bacteremia, HTN, CAD, and OA, admitted for severe sepsis, altered mental status, and STEMI. Neurology consulted for AMS: - likely toxic metabolic encephalopathy (severe sepsis) vs brain mets vs encephalitis vs delirium, less likely meningitis - Head CT 01/18 negative - Blood cultures 2/2 grew gram pos cocci - C/w Vanco, Merrem, Acyclovir, Tamiflu, ampicillin as per ID - 2D echo reviewed, EF 20%, no thrombus seen. Recommend PURVI. - MRI brain ordered. F/u results - neuro checks - passed swallow eval, c/w diet as per speech - palliative nurse Rosetta Matamoros spoke with patient, family. Patient states that she "wants everything done and wants to remain full code." - monitor closely Case seen and discussed with Dr Hare. <Robinson Hare - Last Filed: 01/22/18 17:58> Meds - Medications Medications: Current Medications Aspirin (Aspirin Chewable) 81 mg PO DAILY [facility] Last Admin: 01/22/18 12:10 Dose: 81 mg Atorvastatin Calcium (Lipitor) 40 mg PO DIN [facility] Last Admin: 01/22/18 17:24 Dose: 40 mg Clopidogrel Bisulfate (Plavix) 75 mg PO DAILY [facility] Last Admin: 01/22/18 12:09 Dose: 75 mg Docusate Sodium (Colace) 100 mg PO TID [facility] Last Admin: 01/22/18 14:06 Dose: Not Given Gabapentin (Neurontin) 300 mg PO TID [facility]; Protocol Last Admin: 01/22/18 17:24 Dose: 300 mg Hydralazine HCl (Apresoline) 10 mg IVP Q6 PRN PRN Reason: for SBP>160 Last Admin: 01/20/18 09:23 Dose: 10 mg Hydralazine HCl (Apresoline) 50 mg PO TID [facility] Acyclovir 600 mg/ Sodium (Chloride) 100 mls @ 100 mls/hr IV Q8 [facility]; Protocol Last Admin: 01/22/18 15:17 Dose: 100 mls/hr Heparin Sodium/Sodium Chloride (Heparin 50748 Units/250ml 1/2 Normal Saline) 2 5,000 units in 250 mls @ 7.838 mls/hr IV .Q24H [facility]; Protocol Last Admin: 01/21/18 23:41 Dose: 14 units/kg/hr, 9.144 mls/hr Milrinone Lactate/Dextrose (Primacor 20mg/100ml D5w) 100 mls @ 3.924 mls/hr IV .Q24H PRN; Protocol PRN Reason: TITRATE PER MD ORDER Last Admin: 01/22/18 17:27 Dose: 0.2 mcg/kg/min, 3.924 mls/hr Daptomycin 390 mg/ Sodium (Chloride) 100 mls @ 200 mls/hr IV Q24H [facility] Stop: 01/27/18 15:16 Last Admin: 01/22/18 17:25 Dose: 200 mls/hr Lisinopril (Zestril) 20 mg PO DAILY [facility] Last Admin: 01/22/18 12:09 Dose: 20 mg Lorazepam (Ativan) 1 mg IVP Q6 PRN; Protocol PRN Reason: Anxiety Last Admin: 01/21/18 23:50 Dose: 1 mg Metoprolol Tartrate (Lopressor) 25 mg PO BID [facility] Last Admin: 01/22/18 17:24 Dose: 25 mg Nitroglycerin (Nitro-Bid 2% Oint) 1 ea TOP Q6H [facility] Last Admin: 01/22/18 17:35 Dose: Not Given Ondansetron HCl (Zofran Inj) 4 mg IVP Q6H PRN PRN Reason: Nausea/Vomiting Oseltamivir Phosphate (Tamiflu Susp) 75 mg PO BID [facility]; Protocol Stop: 01/24/18 07:31 Last Admin: 01/22/18 12:34 Dose: 75 mg Oxycodone HCl (Oxycodone Immediate Release Tab) 30 mg PO Q6H PRN PRN Reason: Pain, severe (8-10) Last Admin: 01/22/18 13:59 Dose: 30 mg Pantoprazole Sodium (Protonix Ec Tab) 40 mg PO ACB [facility] Results - Vital Signs Recent Vital Signs: Last Vital Signs Temp 98 F 01/22/18 12:00 Pulse 102 H 01/22/18 17:27 Resp 22 01/22/18 12:00 BP 106/63 01/22/18 17:27 Pulse Ox 95 01/22/18 06:00 - Labs Result Diagrams: 01/22/18 06:40 01/22/18 06:40 Labs: Laboratory Results - last 24 hr 01/21/18 01/21/18 01/22/18 23:50 23:50 06:40 WBC 21.1 H 16.4 H D RBC 3.76 4.08 Hgb 10.1 L 10.8 L Hct 31.9 L 34.4 L MCV 84.8 84.3 MCH 26.9 26.5 MCHC 31.7 31.4 RDW 16.7 H 16.6 H Plt Count 315 267 MPV 10.6 10.6 Gran % 67.0 75.9 H Lymph % (Auto) 19.4 L 13.4 L [place] % (Auto) 11.0 H 5.4 Eos % (Auto) 2.4 5.2 H Baso % (Auto) 0.2 0.1 Gran # 14.12 H 12.45 H Lymph # (Auto) 4.1 H 2.2 [place] # (Auto) 2.3 H 0.9 H Eos # (Auto) 0.5 0.9 H Baso # (Auto) 0.05 0.02 APTT Sodium 142 Potassium 3.8 Chloride 115 H Carbon Dioxide 20 L Anion Gap 11 BUN 25 H Creatinine 0.8 Est GFR ( Amer) > 60 Est GFR (Non-Af Amer) > 60 Random Glucose 129 H Calcium 8.4 Phosphorus 2.6 Magnesium 2.1 Total Bilirubin 1.7 H AST 110 H D ALT 58 H Alkaline Phosphatase 74 Lactate Dehydrogenase 863 H Total Creatine Kinase 40 Troponin I 0.90 H* D Total Protein 6.6 Albumin 2.9 L Globulin 3.7 Albumin/Globulin Ratio 0.8 L 01/22/18 01/22/18 06:40 06:40 WBC RBC Hgb Hct MCV MCH MCHC RDW Plt Count MPV Gran % Lymph % (Auto) [place] % (Auto) Eos % (Auto) Baso % (Auto) Gran # Lymph # (Auto) [place] # (Auto) Eos # (Auto) Baso # (Auto) APTT 61.8 H Sodium 143 Potassium 3.4 L Chloride 115 H Carbon Dioxide 22 Anion Gap 9 L BUN 25 H Creatinine 0.8 Est GFR ( Amer) > 60 Est GFR (Non-Af Amer) > 60 Random Glucose 104 Calcium 8.5 Phosphorus 2.9 Magnesium 2.1 Total Bilirubin 2.1 H AST 77 H D ALT 44 Alkaline Phosphatase 72 Lactate Dehydrogenase 722 H Total Creatine Kinase 34 L Troponin I 0.78 H* Total Protein 6.2 Albumin 2.7 L Globulin 3.5 Albumin/Globulin Ratio 0.8 L Attending/Attestation - Attestation I have personally seen and examined this patient.: Yes I have fully participated in the care of the patient.: Yes I have reviewed all pertinent clinical information: Yes Notes (Text): 01/22/18 17:58 I agree with the assessment and plan. Likely toxic-metabolic encephalopathy due to infectious causes. Continue treatment of the underlying cause. Neuroimaging may be helpful.
--- NOTE | 2018-01-20 18:23 | CP.PCM.PN ---
<Srinivasa Posadas - Last Filed: 01/22/18 20:21> Subjective - Date & Time of Evaluation Date of Evaluation: 01/20/18 Time of Evaluation: 10:00 - Subjective Subjective: INTERNAL MEDICINE PROGRESS NOTE FOR DR. DORA QuirosO. PGY-1 Pt seen and examined at bedside this am. Pt still confused, oriented x 1. Pt had underwent swallow eval. ASSISTANT COACH recommends initial; trial p.o. diet of puree with thin liquids; aspiration precautions. Discussion made today about code status, family and patient request full code status. ROS limited this am due to patients AMS. Objective - Vital Signs/Intake and Output Vital Signs (last 24 hours): Temp Pulse Resp BP Pulse Ox 97.7 F 119 H 36 H 129/49 L 96 01/20/18 15:00 01/20/18 17:51 01/20/18 15:00 01/20/18 17:51 01/20/18 15:00 Intake and Output: 01/20/18 01/20/18 06:59 18:59 Intake Total 2346 142 Output Total 1750 Balance 596 142 - Medications Medications: Current Medications Aspirin (Aspirin Chewable) 81 mg PO DAILY [facility] Last Admin: 01/20/18 09:13 Dose: Not Given Atorvastatin Calcium (Lipitor) 40 mg PO DIN [facility] Last Admin: 01/20/18 17:51 Dose: 40 mg Clopidogrel Bisulfate (Plavix) 75 mg PO DAILY [facility] Last Admin: 01/20/18 09:14 Dose: Not Given Docusate Sodium (Colace) 100 mg PO TID [facility] Last Admin: 01/20/18 17:51 Dose: 100 mg Gabapentin (Neurontin) 300 mg PO TID [facility]; Protocol Last Admin: 01/20/18 17:52 Dose: 300 mg Hydralazine HCl (Apresoline) 50 mg PO TID [facility] Last Admin: 01/19/18 10:04 Dose: Not Given Hydralazine HCl (Apresoline) 10 mg IVP Q6 PRN PRN Reason: for SBP>160 Last Admin: 01/20/18 09:23 Dose: 10 mg Vancomycin HCl (Vancomycin 1gm) 1 gm in 250 mls @ 167 mls/hr IVPB Q12 [facility]; Protocol Last Admin: 01/20/18 09:19 Dose: 167 mls/hr Sodium Chloride (Sodium Chloride 0.9%) 1,000 mls @ 125 mls/hr IV .Q8H [facility] Last Admin: 01/20/18 06:04 Dose: 125 mls/hr Acetaminophen (Ofirmev) 1,000 mg in 100 mls @ 400 mls/hr IVPB Q6H PRN PRN Reason: Pain, moderate (4-7) Stop: 01/21/18 01:05 Last Admin: 01/19/18 01:15 Dose: 400 mls/hr Meropenem (Merrem Iv 1 Gm Premix) 1 gm in 50 mls @ 100 mls/hr IVPB Q8 [facility]; Protocol Last Admin: 01/20/18 13:14 Dose: 100 mls/hr Acyclovir 600 mg/ Sodium (Chloride) 100 mls @ 100 mls/hr IV Q8 [facility]; Protocol Last Admin: 01/20/18 14:54 Dose: 100 mls/hr Ampicillin 2 gm/ Sodium (Chloride) 100 mls @ 200 mls/hr IVPB Q6 [facility]; Protocol Last Admin: 01/20/18 17:50 Dose: 200 mls/hr Heparin Sodium/Sodium Chloride (Heparin 11335 Units/250ml 1/2 Normal Saline) 25,000 units in 250 mls @ 7.838 mls/hr IV .Q24H [facility]; Protocol Last Titration: 01/20/18 09:06 Dose: 14 units/kg/hr, 9.144 mls/hr Potassium Chloride (Potassium Chloride 10 Meq/100 Ml) 10 meq in 100 mls @ 50 mls/hr IVPB Q2H [facility] Stop: 01/20/18 20:14 Last Admin: 01/20/18 16:55 Dose: 50 mls/hr Lisinopril (Zestril) 10 mg PO DAILY [facility] Last Admin: 01/20/18 09:14 Dose: Not Given Lorazepam (Ativan) 1 mg IVP Q6 PRN; Protocol PRN Reason: Anxiety Last Admin: 01/19/18 10:33 Dose: 1 mg Metoprolol Tartrate (Lopressor) 5 mg IVP Q6H [facility] Last Admin: 01/20/18 17:51 Dose: 5 mg Nitroglycerin (Nitro-Bid 2% Oint) 1 ea TOP Q6H [facility] Last Admin: 01/20/18 16:06 Dose: 1 ea Ondansetron HCl (Zofran Inj) 4 mg IVP Q6H PRN PRN Reason: Nausea/Vomiting Oseltamivir Phosphate (Tamiflu Susp) 75 mg PO BID [facility]; Protocol Stop: 01/24/18 07:31 Last Admin: 01/20/18 09:14 Dose: Not Given Oxycodone HCl (Oxycodone Immediate Release Tab) 30 mg PO Q6H PRN PRN Reason: Pain, severe (8-10) Pantoprazole Sodium (Protonix Inj) 40 mg IVP DAILY [facility] Last Admin: 01/20/18 09:18 Dose: 40 mg - Labs Labs: 01/20/18 06:40 01/20/18 16:35 PT 21.6 SECONDS (9.4-12.5) H 01/19/18 05:00 INR 1.85 01/19/18 05:00 APTT 67.3 Seconds (25.1-36.5) H 01/20/18 15:30 - Constitutional Appears: Non-toxic, No Acute Distress, Chronically Ill - Head Exam Head Exam: NORMAL INSPECTION - Eye Exam Eye Exam: EOMI, Normal appearance - ENT Exam ENT Exam: Mucous Membranes Moist, Normal Exam - Neck Exam Neck Exam: Normal Inspection. absent: Meningismus - Respiratory Exam Respiratory Exam: Clear to Ausculation Bilateral, NORMAL BREATHING PATTERN - Cardiovascular Exam Cardiovascular Exam: REGULAR RHYTHM, +S1, +S2 - GI/Abdominal Exam GI & Abdominal Exam: Soft. absent: Tenderness - Extremities Exam Extremities Exam: Normal Inspection. 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 Plan: Severe sepsis with lactic acidosis Blood culture 01/18/18: s. aureus & coag-neg staph Abdomen/pelvis CT: Distention of the stomach with an air-fluid level. Duodenum is distended. Mural thickening of the esophagus. Possible esophagitis. Consider severe sepsis due to Staph aureus bacteremia, R/O CLABSI, R/O endocarditis R/O meningoencephalitis Continue IV Daptomycin, Vancomycin, Merrem, Ampicillin, Acyclovir day 2 for now pending final blood cx, urine cx results Continue oseltamavir CXR which does not show infiltrates, meningitis less likely, f/u MRI brain w/contrast to r/o HSV encephalitis STEMI EKG 01/19/18 showed sinus tachycardia with STEMI. Pt poor candidate for cardiac cath. Start Heparin drip f/u Dr. Orlando barreto Pericardial Effusion Echocardiogram: 01/19/18: EF-20% Trace to small pericardial effusion Neuro recommends PURVI HLD Continue atorvastatin Continue plavix HTN Continue hydralazine 10mgIVP q6prn Continue metoprolol 5mg IVP q6H DVT/GI: Hep drip/ptx Case seen, examined and discussed with attending physician Dr. Shaffer <Summer Shaffer R - Last Filed: 01/24/18 14:37> Objective - Vital Signs/Intake and Output Vital Signs (last 24 hours): Temp Pulse Resp BP Pulse Ox 100 F H 95 H 18 132/82 98 01/24/18 12:00 01/24/18 12:00 01/24/18 12:00 01/24/18 12:00 01/24/18 00:01 Intake and Output: 01/24/18 01/24/18 06:59 18:59 Intake Total 480 Output Total 1100 Balance -620 - Medications Medications: Current Medications Acetaminophen (Tylenol 325mg Tab) 650 mg PO Q6H PRN PRN Reason: Pain, moderate (4-7) Aspirin (Aspirin Chewable) 81 mg PO DAILY [facility] Last Admin: 01/23/18 10:38 Dose: 81 mg Atorvastatin Calcium (Lipitor) 40 mg PO DIN [facility] Last Admin: 01/23/18 18:21 Dose: 40 mg Clopidogrel Bisulfate (Plavix) 75 mg PO DAILY [facility] Last Admin: 01/24/18 11:10 Dose: 75 mg Docusate Sodium (Colace) 100 mg PO TID [facility] Last Admin: 01/24/18 14:13 Dose: Not Given Gabapentin (Neurontin) 300 mg PO TID [facility]; Protocol Last Admin: 01/24/18 14:13 Dose: Not Given Hydralazine HCl (Apresoline) 10 mg IVP Q6 PRN PRN Reason: for SBP>160 Last Admin: 01/20/18 09:23 Dose: 10 mg Hydralazine HCl (Apresoline) 50 mg PO TID [facility] Acyclovir 600 mg/ Sodium (Chloride) 100 mls @ 100 mls/hr IV Q8 [facility]; Protocol Last Admin: 01/24/18 14:13 Dose: Not Given Milrinone Lactate/Dextrose (Primacor 20mg/100ml D5w) 100 mls @ 3.924 mls/hr IV .Q24H PRN; Protocol PRN Reason: TITRATE PER MD ORDER Last Admin: 01/23/18 21:54 Dose: 0.2 mcg/kg/min, 3.924 mls/hr Daptomycin 390 mg/ Sodium (Chloride) 100 mls @ 200 mls/hr IV Q24H [facility] Stop: 01/27/18 15:16 Last Admin: 01/23/18 16:39 Dose: 200 mls/hr Lisinopril (Zestril) 20 mg PO DAILY [facility] Last Admin: 01/24/18 11:09 Dose: 20 mg Lorazepam (Ativan) 1 mg IVP Q6 PRN; Protocol PRN Reason: Anxiety Last Admin: 01/23/18 21:58 Dose: 1 mg Metoprolol Tartrate (Lopressor) 25 mg PO BID [facility] Last Admin: 01/24/18 11:10 Dose: 25 mg Nitroglycerin (Nitro-Bid 2% Oint) 1 ea TOP Q6H [facility] Last Admin: 01/24/18 11:10 Dose: 1 ea Ondansetron HCl (Zofran Inj) 4 mg IVP Q6H PRN PRN Reason: Nausea/Vomiting Pantoprazole Sodium (Protonix Ec Tab) 40 mg PO ACB [facility] Last Admin: 01/24/18 08:36 Dose: Not Given - Labs Labs: 01/24/18 06:30 01/24/18 06:30 PT 21.6 SECONDS (9.4-12.5) H 01/19/18 05:00 INR 1.85 01/19/18 05:00 APTT 60.7 Seconds (25.1-36.5) H 01/23/18 07:00 Attending/Attestation - Attestation I have personally seen and examined this patient.: Yes I have fully participated in the care of the patient.: Yes I have reviewed all pertinent clinical information, including history, physical exam and plan: Yes Notes (Text): Patient seen and examined by me at 10:20 AM with resident 01/20/18. Case including HPI, physical exam, and assessment and plan discussed with resident. Agree with above with following additions/corrections. Patient is a 62-year-old female past medical history significant for age for invasive ductal carcinoma of the breast with metastases to the bone on chemotherapy, MSSA bacteremia, hypertension, coronary artery disease, osteoarthritis, history of right hip fracture, and ankle fracture that presented to the emergency room with altered mental status. Patient lethargic. Opens eyes. Not responding to questions. Unable to obtain any review of systems from patient. Patient is afebrile. Physical exam: General: Lethargic, lying in bed in no acute distress HEENT: Normocephalic, atraumatic. Extraocular muscles intact. Pupils equal reactive. No scleral icterus. Unable to examine mouth as patient not following commands. Neck is supple. Cardiovascular: Normal rhythm. Normal S1, S2. No murmurs, rubs, or gallops appreciated Pulmonary: Normal respiratory effort. Decreased breath sounds. No rhonchi, rales, or wheezing appreciated. Patient not taking in deep breaths when asked to. Gastrointestinal: Soft, nondistended. Nontender. Positive bowel sounds all 4 quadrants, no guarding. Musculoskeletal: Deras move all extremities. No edema appreciated Central nervous system: Lethargic but arousable. Not answering questions or following commands. Dermatologic: Skin warm and dry. Assessment and plan: Patient is a 62-year-old female past medical history significant for age for invasive ductal carcinoma of the breast with metastases to the bone on chemotherapy, MSSA bacteremia, hypertension, coronary artery disease, osteoarthritis, history of right hip fracture, and ankle fracture that presented to the emergency room with altered mental status. 1. Severe sepsis with lactic acidosis. ID following, recommendations appreciated. Continue daptomycin, vancomycin, Merrem, ampicillin, and acyclovir. Continue Tamiflu. Per ID may need lumbar puncture. Head CT per radiologist showed no acute intracranial findings. Preliminary blood culture results show gram-positive cocci. Pending final read of blood cultures and urine cultures. CT abdomen and pelvis per radiologist shows there is distention of the stomach with an air-fluid level, duodenum is also distended, remainder small bowel normal caliber, there is mural thickening of the distal esophagus, possible esophagitis. Patient afebrile. Leukocytosis trending today. Continue to monitor closely in the ICU. 2. Toxic metabolic encephalopathy. Secondary to severe sepsis. Starting to improve. Continue with current antibiotics. Continue supportive care. Neurology following, recommendations appreciated. Neurology recommends MRI brain and PURVI 3. NSTEMI in a patient with history of coronary artery disease. Cardiology following, recommendations appreciated. 2-D echo per photocopying equipment mechanic showed EF of 20%, mitral regurgitation mild to moderate, mild tricuspid regurgitation, trace to small pericardial effusion. Continue heparin drip. Continue aspirin and Plavix. Continue Lipitor. Continue IV metoprolol 4. Hypertension. Continue hydralazine when necessary. Continue IV metoprolol. Cardiology following, follow-up recommendations. 5. ?Esophagitis on CT abd/pelvis. Recent diarrhea. GI following, recommendations appreciated. C-Diff pending. 6. Hypokalemia. Continue with supplementation. Follow-up repeat labs in a.m. 7. History of metastatic breast cancer. Patient follows at [facility] for chemotherapy. 8. GI and DVT prophylaxis. Protonix and heparin drip 9. Patient is a full code
--- NOTE | 2018-01-20 22:42 | CP.PCM.PN ---
Subjective - Date & Time of Evaluation Date of Evaluation: 01/20/18 Time of Evaluation: 22:42 - Subjective Subjective: # 22 angiocath was inserted in right hand. Objective - Vital Signs/Intake and Output Vital Signs (last 24 hours): Temp Pulse Resp BP Pulse Ox 97.2 F L 110 H 24 150/56 L 97 01/20/18 20:00 01/20/18 20:00 01/20/18 20:00 01/20/18 20:00 01/20/18 20:00 Intake and Output: 01/20/18 01/21/18 18:59 06:59 Intake Total 1830 108 Output Total 825 Balance 1005 108 - Medications Medications: Current Medications Aspirin (Aspirin Chewable) 81 mg PO DAILY [facility] Last Admin: 01/20/18 09:13 Dose: Not Given Atorvastatin Calcium (Lipitor) 40 mg PO DIN [facility] Last Admin: 01/20/18 17:51 Dose: 40 mg Clopidogrel Bisulfate (Plavix) 75 mg PO DAILY [facility] Last Admin: 01/20/18 09:14 Dose: Not Given Docusate Sodium (Colace) 100 mg PO TID [facility] Last Admin: 01/20/18 17:51 Dose: 100 mg Gabapentin (Neurontin) 300 mg PO TID [facility]; Protocol Last Admin: 01/20/18 17:52 Dose: 300 mg Hydralazine HCl (Apresoline) 50 mg PO TID [facility] Last Admin: 01/19/18 10:04 Dose: Not Given Hydralazine HCl (Apresoline) 10 mg IVP Q6 PRN PRN Reason: for SBP>160 Last Admin: 01/20/18 09:23 Dose: 10 mg Vancomycin HCl (Vancomycin 1gm) 1 gm in 250 mls @ 167 mls/hr IVPB Q12 [facility]; Protocol Last Admin: 01/20/18 09:19 Dose: 167 mls/hr Sodium Chloride (Sodium Chloride 0.9%) 1,000 mls @ 125 mls/hr IV .Q8H [facility] Last Admin: 01/20/18 20:50 Dose: 125 mls/hr Acetaminophen (Ofirmev) 1,000 mg in 100 mls @ 400 mls/hr IVPB Q6H PRN PRN Reason: Pain, moderate (4-7) Stop: 01/21/18 01:05 Last Admin: 01/19/18 01:15 Dose: 400 mls/hr Meropenem (Merrem Iv 1 Gm Premix) 1 gm in 50 mls @ 100 mls/hr IVPB Q8 [facility]; Protocol Last Admin: 01/20/18 21:53 Dose: 100 mls/hr Acyclovir 600 mg/ Sodium (Chloride) 100 mls @ 100 mls/hr IV Q8 [facility]; Protocol Last Admin: 01/20/18 22:29 Dose: 100 mls/hr Ampicillin 2 gm/ Sodium (Chloride) 100 mls @ 200 mls/hr IVPB Q6 [facility]; Protocol Last Admin: 01/20/18 17:50 Dose: 200 mls/hr Heparin Sodium/Sodium Chloride (Heparin 18362 Units/250ml 1/2 Normal Saline) 25,000 units in 250 mls @ 7.838 mls/hr IV .Q24H [facility]; Protocol Last Admin: 01/20/18 20:46 Dose: 14 units/kg/hr, 9.144 mls/hr Lisinopril (Zestril) 10 mg PO DAILY [facility] Last Admin: 01/20/18 09:14 Dose: Not Given Lorazepam (Ativan) 1 mg IVP Q6 PRN; Protocol PRN Reason: Anxiety Last Admin: 01/19/18 10:33 Dose: 1 mg Metoprolol Tartrate (Lopressor) 5 mg IVP Q6H [facility] Last Admin: 01/20/18 17:51 Dose: 5 mg Nitroglycerin (Nitro-Bid 2% Oint) 1 ea TOP Q6H [facility] Last Admin: 01/20/18 22:25 Dose: 1 ea Ondansetron HCl (Zofran Inj) 4 mg IVP Q6H PRN PRN Reason: Nausea/Vomiting Oseltamivir Phosphate (Tamiflu Susp) 75 mg PO BID [facility]; Protocol Stop: 01/24/18 07:31 Last Admin: 01/20/18 18:18 Dose: 75 mg Oxycodone HCl (Oxycodone Immediate Release Tab) 30 mg PO Q6H PRN PRN Reason: Pain, severe (8-10) Pantoprazole Sodium (Protonix Inj) 40 mg IVP DAILY [facility] Last Admin: 01/20/18 09:18 Dose: 40 mg - Labs Labs: 01/20/18 06:40 01/20/18 16:35 PT 21.6 SECONDS (9.4-12.5) H 01/19/18 05:00 INR 1.85 01/19/18 05:00 APTT 53.5 Seconds (25.1-36.5) H 01/20/18 21:51
[2018-01-21] MEDS: AMPicillin 2 GM in Sodium Chloride 0.9% 100 ML IVPB SCH ×3 (00:16→11:44)
[2018-01-21] MEDS: Heparin25000 units/250ml 1/2NS 25,000 UNITS/250 ML BAG IV SCH ×2 (00:17→23:41)
[2018-01-21] MEDS: Metoprolol 1 mg/ml Inj IVP SCH ×2 (00:17→05:32)
[2018-01-21] MEDS: Sodium Chloride 0.9% 1,000 ML IV SCH (00:18)
[2018-01-21] MEDS: Meropenem IV 1 gm in NS 1 GM/50 ML BAG IVPB SCH ×2 (05:06→14:37)
[2018-01-21] MEDS: Nitroglycerin 2% Ointment Foilpak UD TOP SCH ×4 (05:13→21:32)
--- NOTE | 2018-01-21 06:16 | CP.PCM.PN ---
<Srinivasa Posadas - Last Filed: 01/22/18 20:21> Subjective - Date & Time of Evaluation Date of Evaluation: 01/21/18 Time of Evaluation: 06:15 - Subjective Subjective: INTERNAL MEDICINE PROGRESS NOTE FOR DR. DORA Posadas D.O. PGY-1 Pt seen and examined at bedside this am. She seems more alert and oriented. She has not been getting up to ambulated. She is tolerating her diet. She denies fevers, chills, chest pain, palpitations, shortness of breath, nausea, vomiting, constipation, diarrhea, dysuria. Objective - Vital Signs/Intake and Output Vital Signs (last 24 hours): Temp Pulse Resp BP Pulse Ox 98 F 111 H 20 164/98 H 98 01/21/18 06:00 01/21/18 06:00 01/21/18 06:00 01/21/18 06:00 01/21/18 06:00 Intake and Output: 01/20/18 01/21/18 18:59 06:59 Intake Total 1830 1468 Output Total 825 Balance 1005 1468 - Medications Medications: Current Medications Aspirin (Aspirin Chewable) 81 mg PO DAILY [facility] Last Admin: 01/20/18 09:13 Dose: Not Given Atorvastatin Calcium (Lipitor) 40 mg PO DIN [facility] Last Admin: 01/20/18 17:51 Dose: 40 mg Clopidogrel Bisulfate (Plavix) 75 mg PO DAILY [facility] Last Admin: 01/20/18 09:14 Dose: Not Given Docusate Sodium (Colace) 100 mg PO TID [facility] Last Admin: 01/20/18 17:51 Dose: 100 mg Gabapentin (Neurontin) 300 mg PO TID [facility]; Protocol Last Admin: 01/20/18 17:52 Dose: 300 mg Hydralazine HCl (Apresoline) 50 mg PO TID [facility] Last Admin: 01/19/18 10:04 Dose: Not Given Hydralazine HCl (Apresoline) 10 mg IVP Q6 PRN PRN Reason: for SBP>160 Last Admin: 01/20/18 09:23 Dose: 10 mg Vancomycin HCl (Vancomycin 1gm) 1 gm in 250 mls @ 167 mls/hr IVPB Q12 [facility]; Protocol Last Admin: 01/20/18 22:41 Dose: 167 mls/hr Sodium Chloride (Sodium Chloride 0.9%) 1,000 mls @ 125 mls/hr IV .Q8H [facility] Last Admin: 01/21/18 00:18 Dose: Not Given Meropenem (Merrem Iv 1 Gm Premix) 1 gm in 50 mls @ 100 mls/hr IVPB Q8 [facility]; Protocol Last Admin: 01/21/18 05:06 Dose: 100 mls/hr Acyclovir 600 mg/ Sodium (Chloride) 100 mls @ 100 mls/hr IV Q8 [facility]; Protocol Last Admin: 01/21/18 05:06 Dose: 100 mls/hr Ampicillin 2 gm/ Sodium (Chloride) 100 mls @ 200 mls/hr IVPB Q6 [facility]; Protocol Last Admin: 01/21/18 05:05 Dose: 200 mls/hr Heparin Sodium/Sodium Chloride (Heparin 94649 Units/250ml 1/2 Normal Saline) 25,000 units in 250 mls @ 7.838 mls/hr IV .Q24H [facility]; Protocol Last Admin: 01/21/18 00:17 Dose: Not Given Lisinopril (Zestril) 10 mg PO DAILY [facility] Last Admin: 01/20/18 09:14 Dose: Not Given Lorazepam (Ativan) 1 mg IVP Q6 PRN; Protocol PRN Reason: Anxiety Last Admin: 01/20/18 23:19 Dose: 1 mg Metoprolol Tartrate (Lopressor) 5 mg IVP Q6H [facility] Last Admin: 01/21/18 05:32 Dose: 5 mg Nitroglycerin (Nitro-Bid 2% Oint) 1 ea TOP Q6H [facility] Last Admin: 01/21/18 05:13 Dose: 1 ea Ondansetron HCl (Zofran Inj) 4 mg IVP Q6H PRN PRN Reason: Nausea/Vomiting Oseltamivir Phosphate (Tamiflu Susp) 75 mg PO BID [facility]; Protocol Stop: 01/24/18 07:31 Last Admin: 01/20/18 18:18 Dose: 75 mg Oxycodone HCl (Oxycodone Immediate Release Tab) 30 mg PO Q6H PRN PRN Reason: Pain, severe (8-10) Pantoprazole Sodium (Protonix Inj) 40 mg IVP DAILY [facility] Last Admin: 01/20/18 09:18 Dose: 40 mg - Labs Labs: 01/20/18 06:40 01/20/18 16:35 PT 21.6 SECONDS (9.4-12.5) H 01/19/18 05:00 INR 1.85 01/19/18 05:00 APTT 53.5 Seconds (25.1-36.5) H 01/20/18 21:51 Assessment and Plan - Assessment and Plan (Free Text) Assessment: 62 F with PMH 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 Pt currently being treated with IV antibiotics. Plan: Severe sepsis with lactic acidosis Blood culture 01/18/18: s. aureus & coag-neg staph Abdomen/pelvis CT: Distention of the stomach with an air-fluid level. Duodenum is distended. Mural thickening of the esophagus. Possible esophagitis. Mental status improving Consider severe sepsis due to Staph aureus bacteremia, R/O CLABSI, R/O endocarditis R/O meningoencephalitis Continue IV Daptomycin, Vancomycin, Merrem, Ampicillin, Acyclovir day 2 for now pending final blood cx, urine cx results Continue oseltamavir CXR which does not show infiltrates, meningitis less likely, f/u MRI brain w/contrast to r/o HSV encephalitis STEMI EKG 01/19/18 showed sinus tachycardia with STEMI. Pt poor candidate for cardiac cath. Start Heparin drip f/u Dr. Perry recmai Pericardial Effusion Echocardiogram: 01/19/18: EF-20% Trace to small pericardial effusion Neuro recommends PURVI. Consider when pt stable HLD Continue atorvastatin Continue plavix HTN Continue hydralazine 10mgIVP q6prn Continue metoprolol 5mg IVP q6H DVT/GI: Hep drip/ptx Case seen, examined and discussed with attending physician Dr. Shaffer <Summer Shaffer R - Last Filed: 01/24/18 15:01> Objective - Vital Signs/Intake and Output Vital Signs (last 24 hours): Temp Pulse Resp BP Pulse Ox 100 F H 95 H 18 132/82 98 01/24/18 12:00 01/24/18 12:00 01/24/18 12:00 01/24/18 12:00 01/24/18 00:01 Intake and Output: 01/24/18 01/24/18 06:59 18:59 Intake Total 480 Output Total 1100 Balance -620 - Medications Medications: Current Medications Acetaminophen (Tylenol 325mg Tab) 650 mg PO Q6H PRN PRN Reason: Pain, moderate (4-7) Aspirin (Aspirin Chewable) 81 mg PO DAILY [facility] Last Admin: 01/23/18 10:38 Dose: 81 mg Atorvastatin Calcium (Lipitor) 40 mg PO DIN [facility] Last Admin: 01/23/18 18:21 Dose: 40 mg Clopidogrel Bisulfate (Plavix) 75 mg PO DAILY [facility] Last Admin: 01/24/18 11:10 Dose: 75 mg Docusate Sodium (Colace) 100 mg PO TID [facility] Last Admin: 01/24/18 14:13 Dose: Not Given Gabapentin (Neurontin) 300 mg PO TID [facility]; Protocol Last Admin: 01/24/18 14:13 Dose: Not Given Hydralazine HCl (Apresoline) 10 mg IVP Q6 PRN PRN Reason: for SBP>160 Last Admin: 01/20/18 09:23 Dose: 10 mg Hydralazine HCl (Apresoline) 50 mg PO TID [facility] Acyclovir 600 mg/ Sodium (Chloride) 100 mls @ 100 mls/hr IV Q8 [facility]; Protocol Last Admin: 01/24/18 14:13 Dose: Not Given Milrinone Lactate/Dextrose (Primacor 20mg/100ml D5w) 100 mls @ 3.924 mls/hr IV .Q24H PRN; Protocol PRN Reason: TITRATE PER MD ORDER Last Admin: 01/23/18 21:54 Dose: 0.2 mcg/kg/min, 3.924 mls/hr Daptomycin 390 mg/ Sodium (Chloride) 100 mls @ 200 mls/hr IV Q24H [facility] Stop: 01/27/18 15:16 Last Admin: 01/23/18 16:39 Dose: 200 mls/hr Lisinopril (Zestril) 20 mg PO DAILY [facility] Last Admin: 01/24/18 11:09 Dose: 20 mg Lorazepam (Ativan) 1 mg IVP Q6 PRN; Protocol PRN Reason: Anxiety Last Admin: 01/23/18 21:58 Dose: 1 mg Metoprolol Tartrate (Lopressor) 25 mg PO BID [facility] Last Admin: 01/24/18 11:10 Dose: 25 mg Nitroglycerin (Nitro-Bid 2% Oint) 1 ea TOP Q6H [facility] Last Admin: 01/24/18 11:10 Dose: 1 ea Ondansetron HCl (Zofran Inj) 4 mg IVP Q6H PRN PRN Reason: Nausea/Vomiting Pantoprazole Sodium (Protonix Ec Tab) 40 mg PO ACB [facility] Last Admin: 01/24/18 08:36 Dose: Not Given - Labs Labs: 01/24/18 06:30 01/24/18 06:30 PT 21.6 SECONDS (9.4-12.5) H 01/19/18 05:00 INR 1.85 01/19/18 05:00 APTT 60.7 Seconds (25.1-36.5) H 01/23/18 07:00 Attending/Attestation - Attestation I have personally seen and examined this patient.: Yes I have fully participated in the care of the patient.: Yes I have reviewed all pertinent clinical information, including history, physical exam and plan: Yes Notes (Text): Patient seen and examined by me at 10:30 AM with resident 01/21/18. Case includi ng HPI, physical exam, and assessment and plan discussed with resident. Agree with above with following additions/corrections. Patient is a 62-year-old female past medical history significant for age for invasive ductal carcinoma of the breast with metastases to the bone on chemotherapy, MSSA bacteremia, hypertension, coronary artery disease, osteoarthritis, history of right hip fracture, and ankle fracture that presented to the emergency room with altered mental status. Patient is more awake and alert today. Patient oriented to self and place. Patient states that she is feeling okay. She is denying any pain. No chest pain or shortness of breath. No nausea, vomiting, abdominal pain. No headaches or dizziness. Patient is afebrile. Denies any dysuria. Patient states that she feels tired. Physical exam: General: Awake and alert, lying in bed in no acute distress HEENT: Normocephalic, atraumatic. Extraocular muscles intact. Pupils equal reactive. No scleral icterus. Oropharynx is pink. Dry mucous membranes. Neck is supple. Cardiovascular: Normal rhythm. Normal S1, S2. No murmurs, rubs, or gallops appreciated Pulmonary: Normal respiratory effort. Decreased breath sounds. Positive crackles at bases. No wheezing appreciated. Gastrointestinal: Soft, nondistended. Nontender. Positive bowel sounds all 4 quadrants, no guarding. Musculoskeletal: Moves all extremities. No edema appreciated. No calf tenderness Central nervous system: AAO x2 Dermatologic: Skin warm and dry. Assessment and plan: Patient is a 62-year-old female past medical history significant for age for invasive ductal carcinoma of the breast with metastases to the bone on chemotherapy, MSSA bacteremia, hypertension, coronary artery disease, osteoarthritis, history of right hip fracture, and ankle fracture that presented to the emergency room with altered mental status. 1. Severe sepsis with lactic acidosis. Improving. ID following, recommendations appreciated. Continue current antibiotics. Continue acyclovir. Continue Tamiflu. Blood cultures positive for staph aureus. Urine culture with no growth. Patient afebrile. Leukocytosis downtrending. CT head per radiologist showed no acute intracranial findings. CT abdomen and pelvis per radiologist shows there is distention of the stomach with an air-fluid level, duodenum is also distended, remainder small bowel normal caliber, there is mural thickening of the distal esophagus, possible esophagitis. 2. Toxic metabolic encephalopathy. Secondary to severe sepsis. Improving. Continue with current antibiotics. Continue supportive care. Neurology follow ing, recommendations appreciated. Neurology recommends PURVI. MRI brain pending. 3. Status post IN in a patient with history of coronary artery disease. Cardiology following, recommendations appreciated. 2-D echo per hydroelectric plant operator showed EF of 20%, mitral regurgitation mild to moderate, mild tricuspid regurgitation, trace to small pericardial effusion. Continue heparin drip. Continue aspirin and Plavix. Continue Lipitor. Continue metoprolol and lisinopril. 4. Acute on chronic systolic CHF exacerbation. EF of 20%. Started on milrinone drip. Continue with metoprolol and lisinopril. Cardiology following, recommendations appreciated. 5. Hypertension. Continue hydralazine when necessary. Continue metoprolol and lisinopril. Etiology following, recommendations appreciated. 6. ?Esophagitis on CT abd/pelvis. Recent diarrhea. GI following, recommendations appreciated. C-Diff negative 7. Hypokalemia. Resolved. Continue to monitor. 8. History of metastatic breast cancer. Patient follows at [facility] for chemotherapy. 9. GI and DVT prophylaxis. Protonix and heparin drip 10. Patient is a full code Case discussed in detail with the patient regarding current diagnosis and treatment plan.
[2018-01-21 07:25] LABS: BASO # 0.03 K/mm3 (0.0-2.0); BASO % 0.1 % (0.0-3.0); EOS # 0.1 (0.0-0.7); EOS % 0.4 % (1.5-5.0); GRAN # 18.91 (1.4-6.5); GRAN % 81.1 % (50.0-68.0); LYMPH # 2.7 (1.2-3.4); LYMPH % 11.6 % (22.0-35.0); MEAN CELL VOLUME 82.8 fl (80.0-105.0); MEAN CORPUSCULAR HEMOGLOBIN 26.6 pg (25.0-35.0); MEAN CORPUSCULAR HGB CONC 32.1 g/dl (31.0-37.0); MEAN PLATELET VOLUME 10.8 fl (7.0-11.0); MONO # 1.6 (0.1-0.6); MONO % 6.8 % (1.0-6.0); RBC 3.84 10^6/uL (3.5-6.1); RED CELL DISTRIBUTION WIDTH 16.5 % (11.5-14.5); WHITE BLOOD COUNT 23.3 10^3/ul (4.5-11.0)
[2018-01-21 07:27] LABS: HEMOGLOBIN 10.2 g/dL (12.0-16.0)
[2018-01-21 07:45] LABS: ALB/GLOB RATIO 0.8 (1.1-1.8); ALBUMIN 2.9 g/dL (3.0-4.8); ALT/SGPT 43 U/L (7-56); AST/SGOT 91 U/L (14-36); BLOOD UREA NITROGEN 26 mg/dL (7-21); CALCIUM 8.8 mg/dL (8.4-10.5); GFR NON-AFRICAN AMERICAN > 60
[2018-01-21] MEDS: Vancomycin 1gm in NS 250ml 1 GM/250 ML BAG IVPB SCH (09:27)
[2018-01-21] MEDS: Oseltamivir 6 MG/ML PO SCH ×2 (10:52→18:29)
[2018-01-21] MEDS ORDERED: Potassium Chloride 20 mEq ER Tab PO ONE ×2 (10:52→14:00)
[2018-01-21] MEDS: Milrinone 20mg/100ml D5W 100 ML IV PRN ×2 (11:45→12:10)
[2018-01-21 11:50] LABS: TROPONIN I 1.5 ng/mL
--- NOTE | 2018-01-21 13:43 | RAD ---
Date of service: 01/21/2018 HISTORY: crackles COMPARISON: 01/18/2018 FINDINGS: LUNGS: No active pulmonary disease. PLEURA: No significant pleural effusion identified, no pneumothorax apparent. CARDIOVASCULAR: Moderate cardiomegaly and moderate vascular and interstitial congestion OSSEOUS STRUCTURES: No significant abnormalities. VISUALIZED UPPER ABDOMEN: Normal. OTHER FINDINGS: None. IMPRESSION: Moderate cardiomegaly and moderate vascular and interstitial congestion
--- NOTE | 2018-01-21 14:44 | CP.PCM.PN ---
<Shannan Avina - Last Filed: 01/21/18 15:37> Subjective - Date & Time of Evaluation Date of Evaluation: 01/21/18 Time of Evaluation: 14:40 - Subjective Subjective: Shannan Avina, PGY2, Neurology Consult Note for Dr. Hare: Patient seen and examined at bedside. Patient anxious overnight, given Ativan. Patient drowsy this AM, responds to verbal/painful stimuli. Moves all extremities. No fevers overnight. ROS limited due to patient's mental status. Objective - Vital Signs/Intake and Output Vital Signs (last 24 hours): Temp Pulse Resp BP Pulse Ox 97.3 F L 118 H 20 142/83 98 01/21/18 12:00 01/21/18 12:10 01/21/18 12:00 01/21/18 14:38 01/21/18 06:00 Intake and Output: 01/21/18 01/21/18 06:59 18:59 Intake Total 1888 Output Total 500 Balance 1388 - Medications Medications: Current Medications Aspirin (Aspirin Chewable) 81 mg PO DAILY [facility] Last Admin: 01/21/18 11:51 Dose: 81 mg Atorvastatin Calcium (Lipitor) 40 mg PO DIN [facility] Last Admin: 01/20/18 17:51 Dose: 40 mg Clopidogrel Bisulfate (Plavix) 75 mg PO DAILY [facility] Last Admin: 01/21/18 11:50 Dose: 75 mg Docusate Sodium (Colace) 100 mg PO TID [facility] Last Admin: 01/21/18 10:51 Dose: Not Given Gabapentin (Neurontin) 300 mg PO TID [facility]; Protocol Last Admin: 01/21/18 14:40 Dose: 300 mg Hydralazine HCl (Apresoline) 50 mg PO TID [facility] Last Admin: 01/19/18 10:04 Dose: Not Given Hydralazine HCl (Apresoline) 10 mg IVP Q6 PRN PRN Reason: for SBP>160 Last Admin: 01/20/18 09:23 Dose: 10 mg Vancomycin HCl (Vancomycin 1gm) 1 gm in 250 mls @ 167 mls/hr IVPB Q12 [facility]; Protocol Last Admin: 01/21/18 09:27 Dose: 167 mls/hr Meropenem (Merrem Iv 1 Gm Premix) 1 gm in 50 mls @ 100 mls/hr IVPB Q8 [facility]; Protocol Last Admin: 01/21/18 14:37 Dose: 100 mls/hr Acyclovir 600 mg/ Sodium (Chloride) 100 mls @ 100 mls/hr IV Q8 [facility]; Protocol Last Admin: 01/21/18 05:06 Dose: 100 mls/hr Ampicillin 2 gm/ Sodium (Chloride) 100 mls @ 200 mls/hr IVPB Q6 [facility]; Protocol Last Admin: 01/21/18 11:44 Dose: 200 mls/hr Heparin Sodium/Sodium Chloride (Heparin 06199 Units/250ml 1/2 Normal Saline) 25,000 units in 250 mls @ 7.838 mls/hr IV .Q24H [facility]; Protocol Last Admin: 01/21/18 00:17 Dose: Not Given Milrinone Lactate/Dextrose (Primacor 20mg/100ml D5w) 100 mls @ 3.924 mls/hr IV .Q24H [facility]; Protocol PRN Reason: TITRATE PER MD ORDER Last Admin: 01/21/18 12:10 Dose: 0.2 mcg/kg/min, 3.924 mls/hr Lisinopril (Zestril) 20 mg PO DAILY [facility] Last Admin: 01/21/18 11:45 Dose: 20 mg Lorazepam (Ativan) 1 mg IVP Q6 PRN; Protocol PRN Reason: Anxiety Last Admin: 01/20/18 23:19 Dose: 1 mg Metoprolol Tartrate (Lopressor) 25 mg PO BID [facility] Last Admin: 01/21/18 11:37 Dose: 25 mg Nitroglycerin (Nitro-Bid 2% Oint) 1 ea TOP Q6H [facility] Last Admin: 01/21/18 11:43 Dose: 1 ea Ondansetron HCl (Zofran Inj) 4 mg IVP Q6H PRN PRN Reason: Nausea/Vomiting Oseltamivir Phosphate (Tamiflu Susp) 75 mg PO BID [facility]; Protocol Stop: 01/24/18 07:31 Last Admin: 01/21/18 10:52 Dose: Not Given Oxycodone HCl (Oxycodone Immediate Release Tab) 30 mg PO Q6H PRN PRN Reason: Pain, severe (8-10) Pantoprazole Sodium (Protonix Inj) 40 mg IVP DAILY [facility] Last Admin: 10/09/18 09:31 Dose: 40 mg - Labs Labs: 01/21/18 06:30 01/21/18 06:30 PT 21.6 SECONDS (9.4-12.5) H 01/19/18 05:00 INR 1.85 01/19/18 05:00 APTT 55.5 Seconds (25.1-36.5) H 01/21/18 06:30 - Additional Findings Additional findings: - Constitutional Appears: Non-toxic, Older Than Stated Age, Chronically Ill - Head Exam Head Exam: ATRAUMATIC, NORMOCEPHALIC - Eye Exam Eye Exam: EOMI, PERRL. absent: Conjunctival injection, Nystagmus, Scleral icterus Pupil Exam: NORMAL ACCOMODATION, PERRL. absent: Irregular, Miosis, Mydriatic, Unequal - ENT Exam ENT Exam: Mucous Membranes Moist - Neck Exam Neck exam: Positive for: Full Rom, Normal Inspection. Negative for: Lymphadenopathy, Meningismus, Tenderness, Thyromegaly Additional comments: negative Kernigs and Brudzinskis signs - Respiratory Exam Respiratory Exam: Clear to Auscultation Bilateral, NORMAL BREATHING PATTERN. absent: Accessory Muscle Use, Prolonged Expiratory Phase, Rales, Rhonchi, Wheezes, Respiratory Distress, Stridor - Cardiovascular Exam Cardiovascular Exam: RRR, +S1, +S2, Systolic Murmur - GI/Abdominal Exam GI & Abdominal Exam: Normal Bowel Sounds, Soft. absent: Distended, Organomegaly, Tenderness - Extremities Exam Extremities exam: Positive for: normal inspection. Negative for: calf tendern ess, pedal edema - Back Exam Back exam: NORMAL INSPECTION - Neurological Exam Neurological exam: Drowsy, Altered, Reflexes Normal Additional comments: As per staff, patient has lucid intervals, patient was AAOx4 1.5 hr prior to my exam. At time of my exam, patient drowsy, not answering questions. Unable to assess CN II-XII as patient is not following commands. 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 Neurology consulted for AMS: - likely toxic metabolic encephalopathy (severe sepsis) vs brain mets vs encephalitis vs delirium, less likely meningitis - Head CT 01/18 negative - Blood cultures 2/2 grew Staph aureus - Can de-escalate antibiotics as per ID - 2D echo reviewed, EF 20%, no thrombus seen. Recommend PURVI. - MRI brain ordered. F/u results - neuro checks - passed swallow eval, c/w diet as per speech - palliative nurse Rosetta Matamoros spoke with patient, family. Patient states that she "wants everything done and wants to remain full code." - monitor closely Case seen and discussed with Dr Hare. <Robinson Hare - Last Filed: 01/22/18 18:01> Objective - Vital Signs/Intake and Output Vital Signs (last 24 hours): Temp Pulse Resp BP Pulse Ox 98 F 102 H 22 106/63 95 01/22/18 12:00 01/22/18 17:27 01/22/18 12:00 01/22/18 17:27 01/22/18 06:00 Intake and Output: 01/22/18 01/22/18 06:59 18:59 Intake Total 1765 100 Output Total 650 Balance 1115 100 - Medications Medications: Current Medications Aspirin (Aspirin Chewable) 81 mg PO DAILY [facility] Last Admin: 01/22/18 12:10 Dose: 81 mg Atorvastatin Calcium (Lipitor) 40 mg PO DIN [facility] Last Admin: 01/22/18 17:24 Dose: 40 mg Clopidogrel Bisulfate (Plavix) 75 mg PO DAILY [facility] Last Admin: 01/22/18 12:09 Dose: 75 mg Docusate Sodium (Colace) 100 mg PO TID [facility] Last Admin: 01/22/18 14:06 Dose: Not Given Gabapentin (Neurontin) 300 mg PO TID [facility]; Protocol Last Admin: 01/22/18 17:24 Dose: 300 mg Hydralazine HCl (Apresoline) 10 mg IVP Q6 PRN PRN Reason: for SBP>160 Last Admin: 01/20/18 09:23 Dose: 10 mg Hydralazine HCl (Apresoline) 50 mg PO TID [facility] Acyclovir 600 mg/ Sodium (Chloride) 100 mls @ 100 mls/hr IV Q8 [facility]; Protocol Last Admin: 01/22/18 15:17 Dose: 100 mls/hr Heparin Sodium/Sodium Chloride (Heparin 95622 Units/250ml 1/2 Normal Saline) 25,000 units in 250 mls @ 7.838 mls/hr IV .Q24H [facility]; Protocol Last Admin: 01/21/18 23:41 Dose: 14 units/kg/hr, 9.144 mls/hr Milrinone Lactate/Dextrose (Primacor 20mg/100ml D5w) 100 mls @ 3.924 mls/hr IV .Q24H PRN; Protocol PRN Reason: TITRATE PER MD ORDER Last Admin: 01/22/18 17:27 Dose: 0.2 mcg/kg/min, 3.924 mls/hr Daptomycin 390 mg/ Sodium (Chloride) 100 mls @ 200 mls/hr IV Q24H [facility] Stop: 01/27/18 15:16 Last Admin: 01/22/18 17:25 Dose: 200 mls/hr Lisinopril (Zestril) 20 mg PO DAILY [facility] Last Admin: 01/22/18 12:09 Dose: 20 mg Lorazepam (Ativan) 1 mg IVP Q6 PRN; Protocol PRN Reason: Anxiety Last Admin: 01/21/18 23:50 Dose: 1 mg Metoprolol Tartrate (Lopressor) 25 mg PO BID [facility] Last Admin: 01/22/18 17:24 Dose: 25 mg Nitroglycerin (Nitro-Bid 2% Oint) 1 ea TOP Q6H [facility] Last Admin: 01/22/18 17:35 Dose: Not Given Ondansetron HCl (Zofran Inj) 4 mg IVP Q6H PRN PRN Reason: Nausea/Vomiting Oseltamivir Phosphate (Tamiflu Susp) 75 mg PO BID [facility]; Protocol Stop: 01/24/18 07:31 Last Admin: 01/22/18 12:34 Dose: 75 mg Oxycodone HCl (Oxycodone Immediate Release Tab) 30 mg PO Q6H PRN PRN Reason: Pain, severe (8-10) Last Admin: 01/22/18 13:59 Dose: 30 mg Pantoprazole Sodium (Protonix Ec Tab) 40 mg PO ACB [facility] - Labs Labs: 01/22/18 06:40 01/22/18 06:40 PT 21.6 SECONDS (9.4-12.5) H 01/19/18 05:00 INR 1.85 01/19/18 05:00 APTT 61.8 Seconds (25.1-36.5) H 01/22/18 06:40 Attending/Attestation - Attestation I have personally seen and examined this patient.: Yes I have fully participated in the care of the patient.: Yes I have reviewed all pertinent clinical information, including history, physical exam and plan: Yes Notes (Text): 01/22/18 18:01 I agree with the assessment and plan. The patient is being treated for sepsis and seems to be improving somewhat. Will continue following. MRI is pending.
--- NOTE | 2018-01-21 16:26 | RAD ---
Date of service: 01/21/2018 HISTORY: ?fluid overload COMPARISON: 01/21/2018 at 10:58 a.m.. FINDINGS: LUNGS: Again seen is severe pulmonary venous congestion. There is bibasilar atelectasis. PLEURA: No significant pleural effusion identified, no pneumothorax apparent. CARDIOVASCULAR: Persistent moderate cardiomegaly and prominent central vasculature. OSSEOUS STRUCTURES: No significant abnormalities. VISUALIZED UPPER ABDOMEN: Normal. OTHER FINDINGS: None. IMPRESSION: Persistent cardiomegaly and severe pulmonary venous congestion.
--- NOTE | 2018-01-21 16:33 | CP.PCM.PN ---
Subjective - Date & Time of Evaluation Date of Evaluation: 01/21/18 Time of Evaluation: 11:15 - Subjective Subjective: No fevers, not in distress, still lethargic but a little more awake today. Objective - Vital Signs/Intake and Output Vital Signs (last 24 hours): Temp Pulse Resp BP Pulse Ox 98 F 116 H 20 160/105 H 98 01/21/18 06:00 01/21/18 09:27 01/21/18 06:00 01/21/18 09:27 01/21/18 06:00 Intake and Output: 01/21/18 01/21/18 06:59 18:59 Intake Total 1888 Output Total 500 Balance 1388 - Medications Medications: Current Medications Aspirin (Aspirin Chewable) 81 mg PO DAILY [facility] Last Admin: 01/21/18 09:27 Dose: 81 mg Atorvastatin Calcium (Lipitor) 40 mg PO DIN [facility] Last Admin: 01/20/18 17:51 Dose: 40 mg Clopidogrel Bisulfate (Plavix) 75 mg PO DAILY [facility] Last Admin: 01/21/18 09:27 Dose: 75 mg Docusate Sodium (Colace) 100 mg PO TID [facility] Last Admin: 01/21/18 09:27 Dose: 100 mg Gabapentin (Neurontin) 300 mg PO TID [facility]; Protocol Last Admin: 01/21/18 09:27 Dose: 300 mg Hydralazine HCl (Apresoline) 50 mg PO TID [facility] Last Admin: 01/19/18 10:04 Dose: Not Given Hydralazine HCl (Apresoline) 10 mg IVP Q6 PRN PRN Reason: for SBP>160 Last Admin: 01/20/18 09:23 Dose: 10 mg Vancomycin HCl (Vancomycin 1gm) 1 gm in 250 mls @ 167 mls/hr IVPB Q12 [facility]; Protocol Last Admin: 01/21/18 09:27 Dose: 167 mls/hr Sodium Chloride (Sodium Chloride 0.9%) 1,000 mls @ 125 mls/hr IV .Q8H [facility] Last Admin: 01/21/18 00:18 Dose: Not Given Meropenem (Merrem Iv 1 Gm Premix) 1 gm in 50 mls @ 100 mls/hr IVPB Q8 [facility]; Protocol Last Admin: 01/21/18 05:06 Dose: 100 mls/hr Acyclovir 600 mg/ Sodium (Chloride) 100 mls @ 100 mls/hr IV Q8 [facility]; Protocol Last Admin: 01/21/18 05:06 Dose: 100 mls/hr Ampicillin 2 gm/ Sodium (Chloride) 100 mls @ 200 mls/hr IVPB Q6 [facility]; Protocol Last Admin: 01/21/18 05:05 Dose: 200 mls/hr Heparin Sodium/Sodium Chloride (Heparin 49742 Units/250ml 1/2 Normal Saline) 25,000 units in 250 mls @ 7.838 mls/hr IV .Q24H [facility]; Protocol Last Admin: 01/21/18 00:17 Dose: Not Given Potassium Chloride (Potassium Chloride 10 Meq/100 Ml) 10 meq in 100 mls @ 50 mls/hr IVPB Q2H [facility] Stop: 01/21/18 13:29 Lisinopril (Zestril) 10 mg PO DAILY [facility] Last Admin: 01/21/18 09:27 Dose: 10 mg Lorazepam (Ativan) 1 mg IVP Q6 PRN; Protocol PRN Reason: Anxiety Last Admin: 01/20/18 23:19 Dose: 1 mg Metoprolol Tartrate (Lopressor) 5 mg IVP Q6H [facility] Last Admin: 01/21/18 05:32 Dose: 5 mg Nitroglycerin (Nitro-Bid 2% Oint) 1 ea TOP Q6H [facility] Last Admin: 01/21/18 05:13 Dose: 1 ea Ondansetron HCl (Zofran Inj) 4 mg IVP Q6H PRN PRN Reason: Nausea/Vomiting Oseltamivir Phosphate (Tamiflu Susp) 75 mg PO BID [facility]; Protocol Stop: 01/24/18 07:31 Last Admin: 01/20/18 18:18 Dose: 75 mg Oxycodone HCl (Oxycodone Immediate Release Tab) 30 mg PO Q6H PRN PRN Reason: Pain, severe (8-10) Pantoprazole Sodium (Protonix Inj) 40 mg IVP DAILY [facility] Last Admin: 01/21/18 09:31 Dose: 40 mg - Labs Labs: 01/21/18 06:30 01/21/18 06:30 PT 21.6 SECONDS (9.4-12.5) H 01/19/18 05:00 INR 1.85 01/19/18 05:00 APTT 55.5 Seconds (25.1-36.5) H 01/21/18 06:30 - Constitutional Appears: Chronically Ill - Head Exam Head Exam: NORMAL INSPECTION - ENT Exam ENT Exam: Mucous Membranes Moist - Respiratory Exam Respiratory Exam: Decreased Breath Sounds - Cardiovascular Exam Cardiovascular Exam: +S1, +S2 - GI/Abdominal Exam GI & Abdominal Exam: Soft. absent: Tenderness Assessment and Plan - Assessment and Plan (Free Text) Plan: Assessment systemic inflammatory response syndrome with acute encephalopathy with severe sepsis due to methicilli-sensitive Staph aureus bacteremia, R/O R/O endocarditis R/O meningoencephalitis metastatic breast cancer on chemotherapy history of maculopapular rash with eosinophilia, consider allergic reaction R/O drug-induced history of sepsis due to Methicillin-sensitive Staph aureus bacteremia HTN osteoporosis former drug user Plan since there is Staph aureus bacteremia, meningitis is less likely, but would recommend MRI brain with contrast to check for suggestions of HSV encephalitis and to see if there are emoblic phenomena; discussed with Dr. Hare (Neurology) Will change antibiotics to Nafcillin and follow up repeat blood cx; 2D echo does not show vegetations but patient may need PURVI will continue Acyclovir (day 4) will continue monitor clinically overall prognosis is poor discussed extensively with son-in-law previously
--- NOTE | 2018-01-21 16:56 | PN ---
DATE: 01/21/2018 REASON FOR CONSULTATION: Follow up abnormal EKG, global ST elevation, possible OH, sepsis, breast CA with mets, altered mental status, lethargic. SUBJECTIVE: The patient is very lethargic, but responds to verbal stimuli. PHYSICAL EXAMINATION: VITAL SIGNS: Temperature afebrile, heart rate 116, blood pressure 160/105. HEENT: PERRLA, intact. NECK: Supple. No carotid bruit. No thyromegaly. CHEST: Clear to auscultation. HEART: S1 and S2 regular. ABDOMEN: Soft. EXTREMITIES: Clubbing and cyanosis negative. LABORATORY DATA: WBC 23.3, hemoglobin 10.8, hematocrit 31.8, platelet count 298. Chemistry shows sodium 147, potassium 3.3, chloride 121, carbon dioxide 20, anion gap of 9, BUN 26, creatinine 0.7. Troponin 5.95, yesterday was 3.96. Today's troponin is not back. We will add on the troponin from today's blood. IMPRESSION: A 62-year-old female with past medical history significant for breast cancer, status post recent chemotherapy with metastasis, admitted with sepsis, elevated WBC count, history of chemotherapy a week ago. Admitted very weak, lethargic, methicillin-resistant Staphylococcus aureus, sepsis, altered mental status, blood culture growing Staph aureus. No complaint of chest pain, but EKG shows ST elevation, global anterolateral lead. Echo shows significantly diseased left ventricular function, apical severe hypokinesis consistent with recent myocardial infarction. Troponin is trending up, possibly catching the tail of the recent acute myocardial infarction. Decision was made to treat conservatively based on the patient's altered mental status, asymptomatic and severe sepsis. As of today, still the patient is asymptomatic. Echocardiogram shows severely decreased left ventricular function. Now, the patient is on telemetry, tachycardic and the blood pressure is high, so we will adjust blood pressure medication and the treatment plan as follows; #1 continue heparin. We will add on Primacor low dose and we will increase lisinopril to 20 mg daily and we will increase metoprolol to 25 b.i.d. Discontinue IV metoprolol. Supplement potassium. We will give Lasix at 2:00 p.m. with chest x-ray to rule out any infiltrate versus congestive heart failure. It was recommended by Infectious Disease to have a transesophageal echocardiography, then discussed with Infectious Disease since the patient is very weak, lethargic, risk of complications of perforation is high and since the patient is being treated anyway with antibiotic, so we will suggest to continue for now until the patient become awake and alert and more cooperative, then we will do the transesophageal echocardiography probably in a day or two or 2-3 days because the patient need to continue antibiotic therapy as well. Early transesophageal echocardiography will not change the line of management, but it will help the patient become more cooperative to prevent complication from the transesophageal echocardiography. Overall, the patient's condition is critical, long-term prognosis is extremely poor. Discussed with the family, it was 2 [id number]. We will follow with you. A stat echo was done on Saturday before starting the heparin. Decisions were made to rule out any pericardial effusion. At that time, the echo shows ejection fraction 20%, normal chamber size, mitral regurgitation mild to moderate, mild tricuspid regurgitation, right ventricular systolic pressure 34. Follow up and monitor electrolytes closely. Continue aspirin. Continue Plavix. Continue heparin for now. Monitor trend of troponin. The patient should be on aspirin, probably fell off, initially was getting rectal and we will look it in the MedEx whether the patient is getting aspirin. If not, then we will resume. . We will repeat the blood workup in the morning. I will get a stat chest x-ray portable to assess congestive heart failure status versus rule out pneumonia. Interim, continue nitrates, continue beta deandre, aspirin, Plavix. Again, not a candidate to go to the label pinker. Ignacio Perry MD
[2018-01-21] MEDS: oxyCODONE 30 mg Immediate Release Tab PO PRN (20:58)
--- NOTE | 2018-01-21 23:26 | CP.PCM.PN ---
Subjective - Date & Time of Evaluation Date of Evaluation: 01/21/18 Time of Evaluation: 23:19 - Subjective Subjective: Taurus Saavedra, PGY-1 Progress Note for Hospitalist Service, Dr. Emanuel S CC: Nurse paged for change from sinus rhythm to junctional rhythm with HR 90 bpm. Patient is currentlybeing treated for Gram + bacteremia, TTE negative for vegetations, sepsis, recent MA, on Heparin drip fo r NSTEMI, newly added Primacor drip for EF of 20%. NS @ 150 cc/hr was stopped earlier today. ROS: Patient reports pain in the L forearm and shoulder. Patient denies chest pain, dizziness, headache, diaphoresis, palpitations, nausea, vomiting. O: Vitals temp 97.8, HR 90, RR 20, BP 94/53 NAD CTA b/l no w/r/r regular s1 s2 A&P: Rhythm change most likely secondary to electrolyte abnormality vs excess beta blockade. R/O endocarditis as etiology f/u CBC, CMP, Mg, Phgos, EKG, enzymes x3 Relate to primary medical team recommending PURVI Defer to cardiology to adjust medications like beta blockade EKG showed unusual P axis, prolonged QT, T wave abnormality, no ST changes. Patient seen, case reviewed, and plan discussed with Dr. Emaunel. Taurus Saavedra, PGY-1 Objective - Vital Signs/Intake and Output Vital Signs (last 24 hours): Temp Pulse Resp BP Pulse Ox 97.9 F 95 H 20 145/98 H 98 01/21/18 17:43 01/21/18 22:00 01/21/18 17:43 01/21/18 17:43 01/21/18 06:00 Intake and Output: 01/21/18 01/22/18 18:59 06:59 Intake Total 1639 Output Total 2550 Balance -911 - Medications Medications: Current Medications Aspirin (Aspirin Chewable) 81 mg PO DAILY [facility] Last Admin: 01/21/18 11:51 Dose: 81 mg Atorvastatin Calcium (Lipitor) 40 mg PO DIN [facility] Last Admin: 01/21/18 17:32 Dose: 40 mg Clopidogrel Bisulfate (Plavix) 75 mg PO DAILY [facility] Last Admin: 01/21/18 11:50 Dose: 75 mg Docusate Sodium (Colace) 100 mg PO TID [facility] Last Admin: 01/21/18 17:26 Dose: Not Given Gabapentin (Neurontin) 300 mg PO TID [facility]; Protocol Last Admin: 01/21/18 17:33 Dose: Not Given Hydralazine HCl (Apresoline) 50 mg PO TID [facility] Last Admin: 01/19/18 10:04 Dose: Not Given Hydralazine HCl (Apresoline) 10 mg IVP Q6 PRN PRN Reason: for SBP>160 Last Admin: 01/20/18 09:23 Dose: 10 mg Acyclovir 600 mg/ Sodium (Chloride) 100 mls @ 100 mls/hr IV Q8 [facility]; Protocol Last Admin: 01/21/18 21:32 Dose: 100 mls/hr Heparin Sodium/Sodium Chloride (Heparin 99820 Units/250ml 1/2 Normal Saline) 25,000 units in 250 mls @ 7.838 mls/hr IV .Q24H [facility]; Protocol Last Admin: 01/21/18 00:17 Dose: Not Given Milrinone Lactate/Dextrose (Primacor 20mg/100ml D5w) 100 mls @ 3.924 mls/hr IV .Q24H PRN; Protocol PRN Reason: TITRATE PER MD ORDER Last Admin: 01/21/18 12:10 Dose: 0.2 mcg/kg/min, 3.924 mls/hr Nafcillin Sodium 2 gm/ (Dextrose) 100 mls @ 100 mls/hr IVPB Q4 [facility]; Protocol Last Admin: 01/21/18 20:19 Dose: 100 mls/hr Lisinopril (Zestril) 20 mg PO DAILY [facility] Last Admin: 01/21/18 11:45 Dose: 20 mg Lorazepam (Ativan) 1 mg IVP Q6 PRN; Protocol PRN Reason: Anxiety Last Admin: 01/20/18 23:19 Dose: 1 mg Metoprolol Tartrate (Lopressor) 25 mg PO BID [facility] Last Admin: 01/21/18 17:32 Dose: 25 mg Nitroglycerin (Nitro-Bid 2% Oint) 1 ea TOP Q6H [facility] Last Admin: 01/21/18 21:32 Dose: 1 ea Ondansetron HCl (Zofran Inj) 4 mg IVP Q6H PRN PRN Reason: Nausea/Vomiting Oseltamivir Phosphate (Tamiflu Susp) 75 mg PO BID [facility]; Protocol Stop: 01/24/18 07:31 Last Admin: 01/21/18 18:29 Dose: 75 mg Oxycodone HCl (Oxycodone Immediate Release Tab) 30 mg PO Q6H PRN PRN Reason: Pain, severe (8-10) Last Admin: 01/21/18 20:58 Dose: 30 mg Pantoprazole Sodium (Protonix Inj) 40 mg IVP DAILY [facility] Last Admin: 01/21/18 09:31 Dose: 40 mg - Labs Labs: 01/21/18 06:30 01/21/18 06:30 PT 21.6 SECONDS (9.4-12.5) H 01/19/18 05:00 INR 1.85 01/19/18 05:00 APTT 55.5 Seconds (25.1-36.5) H 01/21/18 06:30
[2018-01-22 00:08] LABS: BASO # 0.05 K/mm3 (0.0-2.0); BASO % 0.2 % (0.0-3.0); EOS # 0.5 (0.0-0.7); EOS % 2.4 % (1.5-5.0); GRAN # 14.12 (1.4-6.5); HEMOGLOBIN 10.1 g/dL (12.0-16.0); LYMPH # 4.1 (1.2-3.4); LYMPH % 19.4 % (22.0-35.0); MEAN CELL VOLUME 84.8 fl (80.0-105.0); MEAN CORPUSCULAR HEMOGLOBIN 26.9 pg (25.0-35.0); MEAN CORPUSCULAR HGB CONC 31.7 g/dl (31.0-37.0); MEAN PLATELET VOLUME 10.6 fl (7.0-11.0); MONO # 2.3 (0.1-0.6); RBC 3.76 10^6/uL (3.5-6.1); RED CELL DISTRIBUTION WIDTH 16.7 % (11.5-14.5); WHITE BLOOD COUNT 21.1 10^3/ul (4.5-11.0)
[2018-01-22 00:52] LABS: ALB/GLOB RATIO 0.8 (1.1-1.8); ALBUMIN 2.9 g/dL (3.0-4.8); ALT/SGPT 58 U/L (7-56); AST/SGOT 110 U/L (14-36); BLOOD UREA NITROGEN 25 mg/dL (7-21); CALCIUM 8.4 mg/dL (8.4-10.5); GFR NON-AFRICAN AMERICAN > 60
[2018-01-22] MEDS: Nitroglycerin 2% Ointment Foilpak UD TOP SCH ×4 (03:43→23:25)
[2018-01-22 07:27] LABS: BASO # 0.02 K/mm3 (0.0-2.0); BASO % 0.1 % (0.0-3.0); EOS # 0.9 (0.0-0.7); EOS % 5.2 % (1.5-5.0); GRAN # 12.45 (1.4-6.5); GRAN % 75.9 % (50.0-68.0); HEMOGLOBIN 10.8 g/dL (12.0-16.0); LYMPH # 2.2 (1.2-3.4); LYMPH % 13.4 % (22.0-35.0); MEAN CELL VOLUME 84.3 fl (80.0-105.0); MEAN CORPUSCULAR HEMOGLOBIN 26.5 pg (25.0-35.0); MEAN CORPUSCULAR HGB CONC 31.4 g/dl (31.0-37.0); MEAN PLATELET VOLUME 10.6 fl (7.0-11.0); MONO # 0.9 (0.1-0.6); MONO % 5.4 % (1.0-6.0); RBC 4.08 10^6/uL (3.5-6.1); RED CELL DISTRIBUTION WIDTH 16.6 % (11.5-14.5); WHITE BLOOD COUNT 16.4 10^3/ul (4.5-11.0)
[2018-01-22 07:37] LABS: ALB/GLOB RATIO 0.8 (1.1-1.8); ALBUMIN 2.7 g/dL (3.0-4.8); ALT/SGPT 44 U/L (7-56); AST/SGOT 77 U/L (14-36); BLOOD UREA NITROGEN 25 mg/dL (7-21); CALCIUM 8.5 mg/dL (8.4-10.5); GFR NON-AFRICAN AMERICAN > 60
[2018-01-22 08:04] LABS: TROPONIN I 0.78 ng/mL
[2018-01-22] MEDS ORDERED: Potassium Chloride 20 mEq ER Tab PO STA ×2 (09:19→12:30)
--- NOTE | 2018-01-22 10:39 | CARD ---
APPROVED REPORT Date of service: 01/21/2018 EKG Measurement Heart [id number] <Conclusion> Unusual P axis, possible ectopic atrial rhythm with Short [place] Interval. Possible Septal infarct, age undetermined Correlate Clinically. T wave abnormality, consider anterolateral ischemia Prolonged QT Abnormal ECG
[2018-01-22] MEDS: Oseltamivir 6 MG/ML PO SCH ×2 (12:34→20:01)
--- NOTE | 2018-01-22 13:04 | CP.PCM.PN ---
Subjective - Date & Time of Evaluation Date of Evaluation: 01/22/18 Time of Evaluation: 11:30 - Subjective Subjective: No fevers, still asking for her family, no vomiting, no diarrhea. Objective - Vital Signs/Intake and Output Vital Signs (last 24 hours): Temp Pulse Resp BP Pulse Ox 97.5 F L 102 H 20 127/70 95 01/22/18 06:00 01/22/18 06:00 01/22/18 06:00 01/22/18 06:00 01/22/18 06:00 Intake and Output: 01/22/18 01/22/18 06:59 18:59 Intake Total 1765 Output Total 650 Balance 1115 - Medications Medications: Current Medications Aspirin (Aspirin Chewable) 81 mg PO DAILY [facility] Last Admin: 01/21/18 11:51 Dose: 81 mg Atorvastatin Calcium (Lipitor) 40 mg PO DIN [facility] Last Admin: 01/21/18 17:32 Dose: 40 mg Clopidogrel Bisulfate (Plavix) 75 mg PO DAILY [facility] Last Admin: 01/21/18 11:50 Dose: 75 mg Docusate Sodium (Colace) 100 mg PO TID [facility] Last Admin: 01/21/18 17:26 Dose: Not Given Gabapentin (Neurontin) 300 mg PO TID [facility]; Protocol Last Admin: 01/21/18 17:33 Dose: Not Given Hydralazine HCl (Apresoline) 50 mg PO TID [facility] Last Admin: 01/19/18 10:04 Dose: Not Given Hydralazine HCl (Apresoline) 10 mg IVP Q6 PRN PRN Reason: for SBP>160 Last Admin: 01/20/18 09:23 Dose: 10 mg Acyclovir 600 mg/ Sodium (Chloride) 100 mls @ 100 mls/hr IV Q8 [facility]; Protocol Last Admin: 01/22/18 05:01 Dose: 100 mls/hr Heparin Sodium/Sodium Chloride (Heparin 29291 Units/250ml 1/2 Normal Saline) 25,000 units in 250 mls @ 7.838 mls/hr IV .Q24H [facility]; Protocol Last Admin: 01/21/18 23:41 Dose: 14 units/kg/hr, 9.144 mls/hr Milrinone Lactate/Dextrose (Primacor 20mg/100ml D5w) 100 mls @ 3.924 mls/hr IV .Q24H PRN; Protocol PRN Reason: TITRATE PER MD ORDER Last Admin: 01/21/18 12:10 Dose: 0.2 mcg/kg/min, 3.924 mls/hr Nafcillin Sodium 2 gm/ (Dextrose) 100 mls @ 100 mls/hr IVPB Q4 [facility]; Protocol Last Admin: 01/22/18 03:46 Dose: 100 mls/hr Lisinopril (Zestril) 20 mg PO DAILY [facility] Last Admin: 01/21/18 11:45 Dose: 20 mg Lorazepam (Ativan) 1 mg IVP Q6 PRN; Protocol PRN Reason: Anxiety Last Admin: 01/21/18 23:50 Dose: 1 mg Metoprolol Tartrate (Lopressor) 25 mg PO BID [facility] Last Admin: 01/21/18 17:32 Dose: 25 mg Nitroglycerin (Nitro-Bid 2% Oint) 1 ea TOP Q6H [facility] Last Admin: 01/22/18 03:43 Dose: Not Given Ondansetron HCl (Zofran Inj) 4 mg IVP Q6H PRN PRN Reason: Nausea/Vomiting Oseltamivir Phosphate (Tamiflu Susp) 75 mg PO BID [facility]; Protocol Stop: 01/24/18 07:31 Last Admin: 01/21/18 18:29 Dose: 75 mg Oxycodone HCl (Oxycodone Immediate Release Tab) 30 mg PO Q6H PRN PRN Reason: Pain, severe (8-10) Last Admin: 01/21/18 20:58 Dose: 30 mg Pantoprazole Sodium (Protonix Inj) 40 mg IVP DAILY [facility] Last Admin: 01/21/18 09:31 Dose: 40 mg - Labs Labs: 01/21/18 23:50 01/21/18 23:50 PT 21.6 SECONDS (9.4-12.5) H 01/19/18 05:00 INR 1.85 01/19/18 05:00 APTT 55.5 Seconds (25.1-36.5) H 01/21/18 06:30 - Constitutional Appears: Chronically Ill - Head Exam Head Exam: NORMAL INSPECTION - Neck Exam Neck Exam: absent: Meningismus - Respiratory Exam Respiratory Exam: Decreased Breath Sounds - Cardiovascular Exam Cardiovascular Exam: +S1, +S2 - GI/Abdominal Exam GI & Abdominal Exam: Soft. absent: Tenderness Assessment and Plan - Assessment and Plan (Free Text) Plan: Assessment systemic inflammatory response syndrome with acute encephalopathy with severe sepsis due to methicillin-sensitive Staph aureus bacteremia, R/O endocarditis R/O meningoencephalitis metastatic breast cancer on chemotherapy history of maculopapular rash with eosinophilia, consider allergic reaction R/O drug-induced history of sepsis due to Methicillin-sensitive Staph aureus bacteremia HTN osteoporosis former drug user Plan since there is Staph aureus bacteremia, meningitis is less likely, but would recommend MRI brain with contrast to check for suggestions of HSV encephalitis and to see if there are emoblic phenomena; discussed with Dr. Hare (Neurology) continue Nafcillin; repeat blood cx are negative so far; 2D echo does not show vegetations but patient may need PURVI - discussed with Dr. Perry - will do it when patient is more stable will continue Acyclovir (day 5) will continue monitor clinically overall prognosis is poor discussed extensively with son-in-law previously
[2018-01-22] MEDS: oxyCODONE 30 mg Immediate Release Tab PO PRN ×2 (13:59→20:29)
--- NOTE | 2018-01-22 14:57 | CP.PCM.PN ---
<Shannan Avina - Last Filed: 01/22/18 14:53> Subjective - Date & Time of Evaluation Date of Evaluation: 01/22/18 Time of Evaluation: 14:53 - Subjective Subjective: Shannan Avina, PGY2, Neurology Consult Note for Dr. Hare: Patient seen and examined at bedside. No acute events overnight. Patient AOx3 this AM, states that she does not remember the exact events leading to the hospital. But states that she "got sick." Currently, denies focal weakness, nausea, vomiting, fevers, shaking movements of her body, urinary/bowel inconti nence. Patient reports that she has 3 screws in her right hip (put in >10 years ago) and 12 screws in her left ankle put in last year due to a fall. Patient does not have a card for the screw compatibility with MRI. Objective - Vital Signs/Intake and Output Vital Signs (last 24 hours): Temp Pulse Resp BP Pulse Ox 98 F 98 H 22 123/70 95 01/22/18 12:00 01/22/18 12:10 01/22/18 12:00 01/22/18 12:10 01/22/18 06:00 Intake and Output: 01/22/18 01/22/18 06:59 18:59 Intake Total 1765 Output Total 650 Balance 1115 - Medications Medications: Current Medications Aspirin (Aspirin Chewable) 81 mg PO DAILY [facility] Last Admin: 01/22/18 12:10 Dose: 81 mg Atorvastatin Calcium (Lipitor) 40 mg PO DIN [facility] Last Admin: 01/21/18 17:32 Dose: 40 mg Clopidogrel Bisulfate (Plavix) 75 mg PO DAILY [facility] Last Admin: 01/22/18 12:09 Dose: 75 mg Docusate Sodium (Colace) 100 mg PO TID [facility] Last Admin: 01/22/18 14:06 Dose: Not Given Gabapentin (Neurontin) 300 mg PO TID [facility]; Protocol Last Admin: 01/22/18 13:58 Dose: 300 mg Hydralazine HCl (Apresoline) 10 mg IVP Q6 PRN PRN Reason: for SBP>160 Last Admin: 01/20/18 09:23 Dose: 10 mg Hydralazine HCl (Apresoline) 50 mg PO TID [facility] Acyclovir 600 mg/ Sodium (Chloride) 100 mls @ 100 mls/hr IV Q8 [facility]; Protocol Last Admin: 01/22/18 05:01 Dose: 100 mls/hr Heparin Sodium/Sodium Chloride (Heparin 47249 Units/250ml 1/2 Normal Saline) 25,000 units in 250 mls @ 7.838 mls/hr IV .Q24H [facility]; Protocol Last Admin: 01/21/18 23:41 Dose: 14 units/kg/hr, 9.144 mls/hr Milrinone Lactate/Dextrose (Primacor 20mg/100ml D5w) 100 mls @ 3.924 mls/hr IV .Q24H PRN; Protocol PRN Reason: TITRATE PER MD ORDER Last Admin: 01/21/18 12:10 Dose: 0.2 mcg/kg/min, 3.924 mls/hr Nafcillin Sodium 2 gm/ (Dextrose) 100 mls @ 100 mls/hr IVPB Q4 [facility]; Protocol Last Admin: 01/22/18 12:10 Dose: 100 mls/hr Lisinopril (Zestril) 20 mg PO DAILY [facility] Last Admin: 01/22/18 12:09 Dose: 20 mg Lorazepam (Ativan) 1 mg IVP Q6 PRN; Protocol PRN Reason: Anxiety Last Admin: 01/21/18 23:50 Dose: 1 mg Metoprolol Tartrate (Lopressor) 25 mg PO BID [facility] Last Admin: 01/22/18 12:10 Dose: 25 mg Nitroglycerin (Nitro-Bid 2% Oint) 1 ea TOP Q6H [facility] Last Admin: 01/22/18 12:10 Dose: 1 ea Ondansetron HCl (Zofran Inj) 4 mg IVP Q6H PRN PRN Reason: Nausea/Vomiting Oseltamivir Phosphate (Tamiflu Susp) 75 mg PO BID [facility]; Protocol Stop: 01/24/18 07:31 Last Admin: 01/22/18 12:34 Dose: 75 mg Oxycodone HCl (Oxycodone Immediate Release Tab) 30 mg PO Q6H PRN PRN Reason: Pain, severe (8-10) Last Admin: 01/22/18 13:59 Dose: 30 mg Pantoprazole Sodium (Protonix Ec Tab) 40 mg PO ACB [facility] - Labs Labs: 01/22/18 06:40 01/22/18 06:40 PT 21.6 SECONDS (9.4-12.5) H 01/19/18 05:00 INR 1.85 01/19/18 05:00 APTT 61.8 Seconds (25.1-36.5) H 01/22/18 06:40 - Additional Findings Additional findings: - Constitutional Appears: Non-toxic, Older Than Stated Age, Chronically Ill - Head Exam Head Exam: ATRAUMATIC, NORMOCEPHALIC - Eye Exam Eye Exam: EOMI, PERRL. absent: Conjunctival injection, Nystagmus, Scleral icterus Pupil Exam: NORMAL ACCOMODATION, PERRL. absent: Irregular, Miosis, Mydriatic, Unequal - ENT Exam ENT Exam: Mucous Membranes Moist - Neck Exam Neck exam: Positive for: Full Rom, Normal Inspection. Negative for: Lymphadenopathy, Meningismus, Tenderness, Thyromegaly Additional comments: negative Kernigs and Brudzinskis signs - Respiratory Exam Respiratory Exam: Clear to Auscultation Bilateral, NORMAL BREATHING PATTERN. absent: Accessory Muscle Use, Prolonged Expiratory Phase, Rales, Rhonchi, Wheezes, Respiratory Distress, Stridor - Cardiovascular Exam Cardiovascular Exam: RRR, +S1, +S2, Systolic Murmur - GI/Abdominal Exam GI & Abdominal Exam: Normal Bowel Sounds, Soft. absent: Distended, Organomegaly, Tenderness - Extremities Exam Extremities exam: Positive for: normal inspection. Negative for: calf tenderne ss, pedal edema - Back Exam Back exam: NORMAL INSPECTION - Neurological Exam Neurological exam: AAOx3, PERRL, Reflexes Normal, CN II-XII intact Additional comments: Strength 3-4/5 all extremities, likely from deconditioning from hospital stay. 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 Neurology consulted for AMS: - likely toxic metabolic encephalopathy (severe sepsis), less likely meningitis - Patient's mental status has improved. - Head CT 01/18 negative - Blood cultures 2/2 grew Staph aureus - 2D echo reviewed, EF 20%, no thrombus seen. Recommend PURVI. - Cancelled MRI due to metal prosthesis - neuro checks - passed swallow eval, c/w diet as per speech - palliative nurse Rosetta Matamoros spoke with patient, family. Patient states that she "wants everything done and wants to remain full code." - monitor closely Case seen and discussed with Dr Hare. <Robinson Hare - Last Filed: 01/31/18 22:59> Objective - Vital Signs/Intake and Output Vital Signs (last 24 hours): Temp Pulse Resp BP Pulse Ox 97.8 F 93 H 18 105/63 100 01/30/18 14:00 01/31/18 10:00 01/30/18 14:00 01/31/18 10:00 01/30/18 14:00 - Labs Labs: 01/31/18 11:45 01/31/18 06:30 PT 21.6 SECONDS (9.4-12.5) H 01/19/18 05:00 INR 1.85 01/19/18 05:00 APTT 60.7 Seconds (25.1-36.5) H 01/23/18 07:00 Attending/Attestation - Attestation I have personally seen and examined this patient.: Yes I have fully participated in the care of the patient.: Yes I have reviewed all pertinent clinical information, including history, physical exam and plan: Yes Notes (Text): 01/31/18 22:58 I agree with the assessment and plan. Likely toxic metabolic encephalopathy. Will recommend PURVI.
[2018-01-22] MEDS ORDERED: DAPTOmycin 500 mg Inj (Cubicin) IV SCH (15:15)
[2018-01-22] MEDS: Milrinone 20mg/100ml D5W 100 ML IV PRN (17:27)
--- NOTE | 2018-01-22 20:13 | CP.PCM.PN ---
<Srinivasa Posadas - Last Filed: 01/22/18 20:25> Subjective - Date & Time of Evaluation Date of Evaluation: 01/22/18 Time of Evaluation: 13:00 - Subjective Subjective: INTERNAL MEDICINE PROGRESS NOTE FOR DR. DORA Posadas D.O. PGY-1 Pt seen and examined at bedside this am. Pt is AxO x 3. Eating breakfast upon interview. Pt reports she is feeling cold. She is conversant and answering questions. Mental status improved from yesterdays visit. Denies fevers, headache, dizziness, nausea, vomiting, chest pain, palpitations, nausea, vomiting, constipation, diarrhea, dysuria. Objective - Vital Signs/Intake and Output Vital Signs (last 24 hours): Temp Pulse Resp BP Pulse Ox 98 F 94 H 22 106/63 95 01/22/18 12:00 01/22/18 18:00 01/22/18 12:00 01/22/18 17:27 01/22/18 06:00 Intake and Output: 01/22/18 01/23/18 18:59 06:59 Intake Total 100 889 Output Total 800 Balance 100 89 - Medications Medications: Current Medications Aspirin (Aspirin Chewable) 81 mg PO DAILY [facility] Last Admin: 01/22/18 12:10 Dose: 81 mg Atorvastatin Calcium (Lipitor) 40 mg PO DIN [facility] Last Admin: 01/22/18 17:24 Dose: 40 mg Clopidogrel Bisulfate (Plavix) 75 mg PO DAILY [facility] Last Admin: 01/22/18 12:09 Dose: 75 mg Docusate Sodium (Colace) 100 mg PO TID [facility] Last Admin: 01/22/18 19:35 Dose: Not Given Gabapentin (Neurontin) 300 mg PO TID [facility]; Protocol Last Admin: 01/22/18 17:24 Dose: 300 mg Hydralazine HCl (Apresoline) 10 mg IVP Q6 PRN PRN Reason: for SBP>160 Last Admin: 01/20/18 09:23 Dose: 10 mg Hydralazine HCl (Apresoline) 50 mg PO TID [facility] Acyclovir 600 mg/ Sodium (Chloride) 100 mls @ 100 mls/hr IV Q8 [facility]; Protocol Last Admin: 01/22/18 15:17 Dose: 100 mls/hr Heparin Sodium/Sodium Chloride (Heparin 34971 Units/250ml 1/2 Normal Saline) 25,000 units in 250 mls @ 7.838 mls/hr IV .Q24H [facility]; Protocol Last Admin: 01/21/18 23:41 Dose: 14 units/kg/hr, 9.144 mls/hr Milrinone Lactate/Dextrose (Primacor 20mg/100ml D5w) 100 mls @ 3.924 mls/hr IV .Q24H PRN; Protocol PRN Reason: TITRATE PER MD ORDER Last Admin: 01/22/18 17:27 Dose: 0.2 mcg/kg/min, 3.924 mls/hr Daptomycin 390 mg/ Sodium (Chloride) 100 mls @ 200 mls/hr IV Q24H [facility] Stop: 01/27/18 15:16 Last Admin: 01/22/18 17:25 Dose: 200 mls/hr Lisinopril (Zestril) 20 mg PO DAILY [facility] Last Admin: 01/22/18 12:09 Dose: 20 mg Lorazepam (Ativan) 1 mg IVP Q6 PRN; Protocol PRN Reason: Anxiety Last Admin: 01/21/18 23:50 Dose: 1 mg Metoprolol Tartrate (Lopressor) 25 mg PO BID [facility] Last Admin: 01/22/18 17:24 Dose: 25 mg Nitroglycerin (Nitro-Bid 2% Oint) 1 ea TOP Q6H [facility] Last Admin: 01/22/18 17:35 Dose: Not Given Ondansetron HCl (Zofran Inj) 4 mg IVP Q6H PRN PRN Reason: Nausea/Vomiting Oseltamivir Phosphate (Tamiflu Susp) 75 mg PO BID [facility]; Protocol Stop: 01/24/18 07:31 Last Admin: 01/22/18 20:01 Dose: 75 mg Oxycodone HCl (Oxycodone Immediate Release Tab) 30 mg PO Q6H PRN PRN Reason: Pain, severe (8-10) Last Admin: 01/22/18 13:59 Dose: 30 mg Pantoprazole Sodium (Protonix Ec Tab) 40 mg PO ACB [facility] - Labs Labs: 01/22/18 06:40 01/22/18 06:40 PT 21.6 SECONDS (9.4-12.5) H 01/19/18 05:00 INR 1.85 01/19/18 05:00 APTT 61.8 Seconds (25.1-36.5) H 01/22/18 06:40 - Constitutional Appears: Non-toxic, Chronically Ill - Head Exam Head Exam: ATRAUMATIC, NORMAL INSPECTION - Eye Exam Eye Exam: EOMI, Normal appearance - ENT Exam ENT Exam: Mucous Membranes Moist, Normal Exam - Neck Exam Neck Exam: Full ROM, Normal Inspection - Respiratory Exam Respiratory Exam: Decreased Breath Sounds, NORMAL BREATHING PATTERN - Cardiovascular Exam Cardiovascular Exam: Tachycardia, +S1, +S2 - GI/Abdominal Exam GI & Abdominal Exam: Soft. absent: Tenderness - Extremities Exam Extremities Exam: Normal Inspection. 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 Pt currently being treated with IV antibiotics. Plan: Severe sepsis with lactic acidosis Blood culture 01/18/18: s. aureus & coag-neg staph Abdomen/pelvis CT: Distention of the stomach with an air-fluid level. Duodenum is distended. Mural thickening of the esophagus. Possible esophagitis. Mental status improving Consider severe sepsis due to Staph aureus bacteremia, R/O CLABSI, R/O endocarditis R/O meningoencephalitis Vanc stopped due to rash. Pt has history of maculopapular rash with eosinophilia, consider allergic reaction R/O drug-induced Continue IV Daptomycin, Oseltamavir, Merrem, Ampicillin, Acyclovir day 2 for now pending final blood cx, urine cx results CXR which does not show infiltrates, meningitis less likely, f/u MRI brain w/contrast to r/o HSV encephalitis. Cancelled d/t metal prosthesis HFrEF Echocardiogram: 01/19/18: EF-20% Trace to small pericardial effusion Chest Xray (01/21): Persistent cardiomegaly with severe pulmonary venous congestion. Continue Milrinone per cardio recs Appreciate cardio recs Neuro recommends PURVI. Consider when pt stable STEMI EKG 01/19/18 showed sinus tachycardia with STEMI. Pt poor candidate for cardiac cath. Continue Heparin drip f/u Dr. Perry recs HLD Continue aspirin Continue atorvastatin Continue plavix HTN Continue metoprolol 25mg po bid Continue lisinopril 20mg po daily Continue hydralazine 10mgIVP q6prn Continue Nitroglycerin Q6H Hold po hydralazine DVT/GI: Hep drip/ptx Case seen, examined and discussed with attending physician Dr. Shaffer <Summer Shaffer R - Last Filed: 01/24/18 16:31> Objective - Vital Signs/Intake and Output Vital Signs (last 24 hours): Temp Pulse Resp BP Pulse Ox 100 F H 95 H 18 132/82 98 01/24/18 12:00 01/24/18 12:00 01/24/18 12:00 01/24/18 12:00 01/24/18 00:01 Intake and Output: 01/24/18 01/24/18 06:59 18:59 Intake Total 480 Output Total 1100 Balance -620 - Medications Medications: Current Medications Acetaminophen (Tylenol 325mg Tab) 650 mg PO Q6H PRN PRN Reason: Pain, moderate (4-7) Aspirin (Aspirin Chewable) 81 mg PO DAILY [facility] Last Admin: 01/23/18 10:38 Dose: 81 mg Atorvastatin Calcium (Lipitor) 40 mg PO DIN [facility] Last Admin: 01/23/18 18:21 Dose: 40 mg Clopidogrel Bisulfate (Plavix) 75 mg PO DAILY [facility] Last Admin: 01/24/18 11:10 Dose: 75 mg Docusate Sodium (Colace) 100 mg PO TID [facility] Last Admin: 01/24/18 14:13 Dose: Not Given Gabapentin (Neurontin) 300 mg PO TID [facility]; Protocol Last Admin: 01/24/18 14:13 Dose: Not Given Hydralazine HCl (Apresoline) 10 mg IVP Q6 PRN PRN Reason: for SBP>160 Last Admin: 01/20/18 09:23 Dose: 10 mg Hydralazine HCl (Apresoline) 50 mg PO TID [facility] Acyclovir 600 mg/ Sodium (Chloride) 100 mls @ 100 mls/hr IV Q8 [facility]; Protocol Last Admin: 01/24/18 14:13 Dose: Not Given Milrinone Lactate/Dextrose (Primacor 20mg/100ml D5w) 100 mls @ 3.924 mls/hr IV .Q24H PRN; Protocol PRN Reason: TITRATE PER MD ORDER Last Admin: 01/23/18 21:54 Dose: 0.2 mcg/kg/min, 3.924 mls/hr Daptomycin 390 mg/ Sodium (Chloride) 100 mls @ 200 mls/hr IV Q24H ON [facility] Stop: 01/27/18 15:16 Last Admin: 01/23/18 16:39 Dose: 200 mls/hr Lisinopril (Zestril) 20 mg PO DAILY [facility] Last Admin: 01/24/18 11:09 Dose: 20 mg Lorazepam (Ativan) 1 mg IVP Q6 PRN; Protocol PRN Reason: Anxiety Last Admin: 01/23/18 21:58 Dose: 1 mg Metoprolol Tartrate (Lopressor) 25 mg PO BID [facility] Last Admin: 01/24/18 11:10 Dose: 25 mg Nitroglycerin (Nitro-Bid 2% Oint) 1 ea TOP Q6H [facility] Last Admin: 01/24/18 11:10 Dose: 1 ea Ondansetron HCl (Zofran Inj) 4 mg IVP Q6H PRN PRN Reason: Nausea/Vomiting Pantoprazole Sodium (Protonix Ec Tab) 40 mg PO ACB ON [facility] Last Admin: 01/24/18 08:36 Dose: Not Given - Labs Labs: 01/24/18 06:30 01/24/18 06:30 PT 21.6 SECONDS (9.4-12.5) H 01/19/18 05:00 INR 1.85 01/19/18 05:00 APTT 60.7 Seconds (25.1-36.5) H 01/23/18 07:00 Attending/Attestation - Attestation I have personally seen and examined this patient.: Yes I have fully participated in the care of the patient.: Yes I have reviewed all pertinent clinical information, including history, physical exam and plan: Yes Notes (Text): Patient seen and examined by me at 10:30 AM with resident 01/22/18. Case including HPI, physical exam, and assessment and plan discussed with resident. Agree with above with following additions/corrections. Patient is a 62-year-old female past medical history significant for age for invasive ductal carcinoma of the breast with metastases to the bone on chemother apy, MSSA bacteremia, hypertension, coronary artery disease, osteoarthritis, history of right hip fracture, and ankle fracture that presented to the emergency room with altered mental status. Patient is awake and alert today. Patient oriented x 2. Patient states that she is feeling better. She denies any pain. No chest pain or shortness of breath. No nausea, vomiting, abdominal pain. Tolerating diet. No headaches or dizziness. Patient afebrile. Physical exam: General: Awake and alert, lying in bed in no acute distress HEENT: Normocephalic, atraumatic. Extraocular muscles intact. Pupils equal reactive. No scleral icterus. Oropharynx is pink and moist. Neck is supple. Cardiovascular: Normal rhythm. Normal S1, S2. No murmurs, rubs, or gallops appreciated Pulmonary: Normal respiratory effort. Decreased breath sounds. No rhonchi, rales, or wheezing appreciated. Gastrointestinal: Soft, nondistended. Nontender. Positive bowel sounds all 4 quadrants, no guarding. Musculoskeletal: Moves all extremities. No edema appreciated. No calf tenderness Central nervous system: AAO x2 Dermatologic: Skin warm and dry. Assessment and plan: Patient is a 62-year-old female past medical history sign ificant for age for invasive ductal carcinoma of the breast with metastases to the bone on chemotherapy, MSSA bacteremia, hypertension, coronary artery disease, osteoarthritis, history of right hip fracture, and ankle fracture that presented to the emergency room with altered mental status. 1. Severe sepsis with lactic acidosis. Continues to improve. ID following, recommendations appreciated. Continue current antibiotics. Continue acyclovir. Continue Tamiflu. Blood cultures positive for staph aureus. Urine culture with no growth. Patient afebrile. Leukocytosis continues to downtrend. CT head per radiologist showed no acute intracranial findings. CT abdomen and pelvis per radiologist shows there is distention of the stomach with an air-fluid level, duodenum is also distended, remainder small bowel with normal caliber, there is mural thickening of the distal esophagus, possible esophagitis. 2. Toxic metabolic encephalopathy. Secondary to severe sepsis. Continues to improve. Continue with current antibiotics. Continue supportive care. Neurology following, recommendations appreciated. Neurology recommends PURVI. Unable to do MRI secondary to screws in patient's left ankle. 3. Status post OR in a patient with history of coronary artery disease. Cardiology following, recommendations appreciated. 2-D echo per mill supervisor showed EF of 20%, mitral regurgitation mild to moderate, mild tricuspid regurgitation, trace to small pericardial effusion. Continue heparin drip. Continue aspirin and Plavix. Continue Lipitor. Continue metoprolol and lisinopril. 4. Acute on chronic systolic CHF exacerbation. EF of 20%. Continue on milrinone drip. Continue with metoprolol and lisinopril. Cardiology following, recommendations appreciated. 5. Hypertension. Continue metoprolol and lisinopril. Continue hydralazine prn. Cardiology following, recommendations appreciated. 6. ?Esophagitis on CT abd/pelvis. Recent diarrhea. GI following, recommendations appreciated. C-Diff negative 7. Hypokalemia. Replace Potassium. Follow up repeat labs in AM. 8. History of metastatic breast cancer. Patient follows at [facility] for chemotherapy. 8. GI and DVT prophylaxis. Protonix and heparin drip 9. Patient is a full code Case discussed in detail with the patient regarding current diagnosis and treatment plan.
--- NOTE | 2018-01-23 03:48 | PN ---
DATE: 01/22/2018 REASON FOR CONSULTATION AND FOLLOWUP: Abnormally global ST elevation CT, sepsis, breast CA with metastasis, altered mental status, lethargic. SUBJECTIVE: Patient is getting a little bit more responsive to the verbal stimuli. Denies any chest pain, shortness of breath, or any palpitation. OBJECTIVE: GENERAL: Not in apparent distress. VITAL SIGNS: Temperature afebrile, heart rate 85, blood pressure 127/70. HEENT: PERRLA. Extraocular muscles intact. NECK: Supple. No carotid bruits or thyromegaly. CHEST: Clear to auscultation. HEART: S1 and S2 regular. ABDOMEN: Soft. EXTREMITIES: Clubbing and cyanosis, negative. LABORATORY DATA: Blood workup as follows: WBC 16.5, hemoglobin 10.8, hematocrit 34.4, platelet count 267. Chemistry shows sodium 143, potassium 3.4, chloride 101, carbon dioxide 22, anion gap of 9, BUN 25, creatinine 0.8. Troponin trend down to 0.78, next one being 3.75. Blood cultures, Staph aureus. Repeat blood culture from 01/20/2018 is negative as well as from 01/19/2018, is also negative. IMPRESSION: A 62-year-old female with a past medical history significant for breast cancer with metastasis, history of recent chemotherapy a week or 2 week ago. Admitted with elevated WBC, weakness, lethargic, methicillin-resistant Staphylococcus aureus sepsis. Initial echo was negative for endocarditis. Echocardiogram also showed severe apical hypokinesis consistent with recent myocardial infarction. Admitting troponin was high, trending down probably we catching the tail of the acute myocardial infarction. Patient is completely asymptomatic because overall she has been sepsis, hypotension, septic shock. Not a candidate to go to the cardiac agriculture laborer, decided to be managed medically. Patient is still very weak, lethargic. PURVI was recommended by ID, but I put on hold more awake and alert because high risk of the patient is obtunded. The patient for complication of PURVI for perforation and since the patient is being treated anyway with intravenous antibiotics. We will wait for 2 to 3 days till the patient becomes more awake and alert possibly early next week. In the interim, continue beta-deandre. Continue milrinone started for heart failure. Continue Plavix. Continue aspirin and continue BRIANNA inhibitors and we will put hydralazine with holding parameter and patient is now running low blood pressure, so we will put hydralazine, hold for her blood pressure less than 140. We will follow with you, probably PURVI on Saturday. Anyway blood pressure remains little bit further and decrease dose of hydralazine. We will repeat the blood workup tomorrow. Initial echocardiogram did not show any evidence of endocarditis. Ignacio Perry MD
--- NOTE | 2018-01-23 05:00 | CP.PCM.PN ---
<Srinivasa Posadas - Last Filed: 01/23/18 13:20> Subjective - Date & Time of Evaluation Date of Evaluation: 01/23/18 Time of Evaluation: 13:21 - Subjective Subjective: INTERNAL MEDICINE PROGRESS NOTE FOR DR. DORA Posadas D.O. PGY-1 Pt seen and examined at bedside this am. Son-in-law present at bedside. She is more awake and alert this am, conversing well, tolerating diet. Pt has no acute complaints this am. She reports improvement in chills. She denies fevers, headache, dizziness, nausea, vomiting, dizziness, chest pain, palpitations, shortness of breath constipation, diarrhea, dysuria. Objective - Vital Signs/Intake and Output Vital Signs (last 24 hours): Temp Pulse Resp BP Pulse Ox 98.4 F 90 20 113/67 96 01/23/18 00:01 01/23/18 02:00 01/23/18 00:01 01/23/18 01:30 01/23/18 00:01 Intake and Output: 01/22/18 01/23/18 18:59 06:59 Intake Total 100 889 Output Total 800 Balance 100 89 - Medications Medications: Current Medications Aspirin (Aspirin Chewable) 81 mg PO DAILY [facility] Last Admin: 01/22/18 12:10 Dose: 81 mg Atorvastatin Calcium (Lipitor) 40 mg PO DIN [facility] Last Admin: 01/22/18 17:24 Dose: 40 mg Clopidogrel Bisulfate (Plavix) 75 mg PO DAILY [facility] Last Admin: 01/22/18 12:09 Dose: 75 mg Docusate Sodium (Colace) 100 mg PO TID [facility] Last Admin: 01/22/18 19:35 Dose: Not Given Gabapentin (Neurontin) 300 mg PO TID [facility]; Protocol Last Admin: 01/22/18 17:24 Dose: 300 mg Hydralazine HCl (Apresoline) 10 mg IVP Q6 PRN PRN Reason: for SBP>160 Last Admin: 01/20/18 09:23 Dose: 10 mg Hydralazine HCl (Apresoline) 50 mg PO TID [facility] Acyclovir 600 mg/ Sodium (Chloride) 100 mls @ 100 mls/hr IV Q8 [facility]; Protocol Last Admin: 01/22/18 22:28 Dose: 100 mls/hr Heparin Sodium/Sodium Chloride (Heparin 06833 Units/250ml 1/2 Normal Saline) 25,000 units in 250 mls @ 7.838 mls/hr IV .Q24H [facility]; Protocol Last Admin: 01/21/18 23:41 Dose: 14 units/kg/hr, 9.144 mls/hr Milrinone Lactate/Dextrose (Primacor 20mg/100ml D5w) 100 mls @ 3.924 mls/hr IV .Q24H PRN; Protocol PRN Reason: TITRATE PER MD ORDER Last Admin: 01/22/18 17:27 Dose: 0.2 mcg/kg/min, 3.924 mls/hr Daptomycin 390 mg/ Sodium (Chloride) 100 mls @ 200 mls/hr IV Q24H [facility] Stop: 01/27/18 15:16 Last Admin: 01/22/18 17:25 Dose: 200 mls/hr Lisinopril (Zestril) 20 mg PO DAILY [facility] Last Admin: 01/22/18 12:09 Dose: 20 mg Lorazepam (Ativan) 1 mg IVP Q6 PRN; Protocol PRN Reason: Anxiety Last Admin: 01/22/18 22:45 Dose: 1 mg Metoprolol Tartrate (Lopressor) 25 mg PO BID [facility] Last Admin: 01/22/18 17:24 Dose: 25 mg Nitroglycerin (Nitro-Bid 2% Oint) 1 ea TOP Q6H [facility] Last Admin: 01/22/18 23:25 Dose: Not Given Ondansetron HCl (Zofran Inj) 4 mg IVP Q6H PRN PRN Reason: Nausea/Vomiting Oseltamivir Phosphate (Tamiflu Susp) 75 mg PO BID [facility]; Protocol Stop: 01/24/18 07:31 Last Admin: 01/22/18 20:01 Dose: 75 mg Oxycodone HCl (Oxycodone Immediate Release Tab) 30 mg PO Q6H PRN PRN Reason: Pain, severe (8-10) Last Admin: 01/22/18 20:29 Dose: 30 mg Pantoprazole Sodium (Protonix Ec Tab) 40 mg PO ACB [facility] - Labs Labs: 01/22/18 06:40 01/22/18 06:40 PT 21.6 SECONDS (9.4-12.5) H 01/19/18 05:00 INR 1.85 10/07/18 05:00 APTT 61.8 Seconds (25.1-36.5) H 01/22/18 06:40 - Constitutional Appears: Non-toxic, No Acute Distress, Chronically Ill - Head Exam Head Exam: NORMAL INSPECTION, NORMOCEPHALIC - Eye Exam Eye Exam: EOMI, Normal appearance - ENT Exam ENT Exam: Mucous Membranes Moist, Normal Exam - Neck Exam Neck Exam: Normal Inspection. absent: Meningismus - Respiratory Exam Respiratory Exam: Decreased Breath Sounds, NORMAL BREATHING PATTERN - Cardiovascular Exam Cardiovascular Exam: REGULAR RHYTHM, +S1, +S2 - GI/Abdominal Exam GI & Abdominal Exam: Soft, Normal Bowel Sounds - Extremities Exam Extremities Exam: Normal Inspection. absent: Calf Tenderness - Back Exam Back Exam: NORMAL INSPECTION. 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), MSSA bacteremia, HTN, CAD, and OA, admitted for severe sepsis, altered mental status, and STEMI. Pt currently being treated with IV antibiotics, and on milrinone drip. Plan: Severe sepsis with lactic acidosis Blood culture 01/18/18: s. aureus & coag-neg staph Mental status improving Consider severe sepsis due to Staph aureus bacteremia, R/O CLABSI, R/O endocarditis R/O meningoencephalitis Cardiology to perform PURVI on saturday to r/o vegetations Vanc/Nafcillin stopped due to rash. Pt has history of maculopapular rash with eosinophilia, consider allergic reaction R/O drug-induced Continue IV Daptomycin, Oseltamavir, Acyclovir day 3 for now pending final blood cx, urine cx results CXR which does not show infiltrates, meningitis less likely ID consulted: Dr. Chung has been following. Appreciate recs f/u MRI brain w/contrast to r/o HSV encephalitis. Cancelled d/t metal prosthesis HFrEF Echocardiogram: 01/19/18: EF-20% Trace to small pericardial effusion Chest Xray (01/21): Persistent cardiomegaly with severe pulmonary venous congestion. Continue Milrinone per cardio recs Appreciate cardio recs Neuro recommends PURVI. Consider when pt stable STEMI EKG 01/19/18 showed sinus tachycardia with STEMI. Pt poor candidate for cardiac cath. Continue Heparin drip f/u Dr. Perry recs HLD Continue aspirin Continue atorvastatin Continue plavix HTN Continue metoprolol 25mg po bid Continue lisinopril 20mg po daily Continue hydralazine 10mgIVP q6prn Continue Nitroglycerin Q6H Hold po hydralazine Constipation Continue colace 100mg tid DVT/GI: Hep drip/ptx po Case seen, examined and discussed with attending physician Dr. Shaffer <Summer Shaffer R - Last Filed: 01/24/18 17:02> Objective - Vital Signs/Intake and Output Vital Signs (last 24 hours): Temp Pulse Resp BP Pulse Ox 100 F H 95 H 18 132/82 98 01/24/18 12:00 01/24/18 12:00 01/24/18 12:00 01/24/18 12:00 01/24/18 00:01 Intake and Output: 01/24/18 01/24/18 06:59 18:59 Intake Total 480 Output Total 1100 Balance -620 - Medications Medications: Current Medications Acetaminophen (Tylenol 325mg Tab) 650 mg PO Q6H PRN PRN Reason: Pain, moderate (4-7) Aspirin (Aspirin Chewable) 81 mg PO DAILY [facility] Last Admin: 01/23/18 10:38 Dose: 81 mg Atorvastatin Calcium (Lipitor) 40 mg PO DIN [facility] Last Admin: 01/23/18 18:21 Dose: 40 mg Clopidogrel Bisulfate (Plavix) 75 mg PO DAILY [facility] Last Admin: 01/24/18 11:10 Dose: 75 mg Docusate Sodium (Colace) 100 mg PO TID [facility] Last Admin: 01/24/18 14:13 Dose: Not Given Gabapentin (Neurontin) 300 mg PO TID [facility]; Protocol Last Admin: 01/24/18 14:13 Dose: Not Given Hydralazine HCl (Apresoline) 10 mg IVP Q6 PRN PRN Reason: for SBP>160 Last Admin: 01/20/18 09:23 Dose: 10 mg Hydralazine HCl (Apresoline) 50 mg PO TID [facility] Acyclovir 600 mg/ Sodium (Chloride) 100 mls @ 100 mls/hr IV Q8 [facility]; Protocol Last Admin: 01/24/18 14:13 Dose: Not Given Milrinone Lactate/Dextrose (Primacor 20mg/100ml D5w) 100 mls @ 3.924 mls/hr IV .Q24H PRN; Protocol PRN Reason: TITRATE PER MD ORDER Last Admin: 01/23/18 21:54 Dose: 0.2 mcg/kg/min, 3.924 mls/hr Daptomycin 390 mg/ Sodium (Chloride) 100 mls @ 200 mls/hr IV Q24H [facility] Stop: 01/27/18 15:16 Last Admin: 01/23/18 16:39 Dose: 200 mls/hr Lisinopril (Zestril) 20 mg PO DAILY [facility] Last Admin: 01/24/18 11:09 Dose: 20 mg Lorazepam (Ativan) 1 mg IVP Q6 PRN; Protocol PRN Reason: Anxiety Last Admin: 01/23/18 21:58 Dose: 1 mg Metoprolol Tartrate (Lopressor) 25 mg PO BID [facility] Last Admin: 01/24/18 11:10 Dose: 25 mg Nitroglycerin (Nitro-Bid 2% Oint) 1 ea TOP Q6H [facility] Last Admin: 01/24/18 11:10 Dose: 1 ea Ondansetron HCl (Zofran Inj) 4 mg IVP Q6H PRN PRN Reason: Nausea/Vomiting Pantoprazole Sodium (Protonix Ec Tab) 40 mg PO ACB [facility] Last Admin: 01/24/18 08:36 Dose: Not Given - Labs Labs: 01/24/18 06:30 01/24/18 06:30 PT 21.6 SECONDS (9.4-12.5) H 01/19/18 05:00 INR 1.85 01/19/18 05:00 APTT 60.7 Seconds (25.1-36.5) H 01/23/18 07:00 Attending/Attestation - Attestation I have personally seen and examined this patient.: Yes I have fully participated in the care of the patient.: Yes I have reviewed all pertinent clinical information, including history, physical exam and plan: Yes Notes (Text): Patient seen and examined by me at 11:15 AM with resident 01/23/18. Case including HPI, physical exam, and assessment and plan discussed with resident. Agree with above with following additions/corrections. Patient is a 62-year-old female past medical history significant for age for invasive ductal carcinoma of the breast with metastases to the bone on chemotherapy, MSSA bacteremia, hypertension, coronary artery disease, osteoarthritis, history of right hip fracture, and left ankle fracture that presented to the emergency room with altered mental status. Patient is awake and alert today. Patient oriented x 3 today. Patient states that she feels pretty good. Patient states she has pain everywhere secondary to having ankle fracture and . No chest pain or shortness of breath. No nausea, vomiting, or abdominal pain. Tolerating diet. No headaches or dizziness. Patient afebrile. Physical exam: General: Awake and alert, lying in bed in no acute distress HEENT: Normocephalic, atraumatic. Extraocular muscles intact. Pupils equal reactive. No scleral icterus. Oropharynx is pink and moist. Neck is supple. Cardiovascular: Normal rhythm. Normal S1, S2. No murmurs, rubs, or gallops appreciated Pulmonary: Normal respiratory effort. Decreased breath sounds. No rhonchi, rales, or wheezing appreciated. Gastrointestinal: Soft, nondistended. Nontender. Positive bowel sounds all 4 quadrants, no guarding. Musculoskeletal: Moves all extremities. No edema appreciated. No calf tenderness Central nervous system: AAO x3 Dermatologic: Skin warm and dry. Assessment and plan: Patient is a 62-year-old female past medical history significant for age for invasive ductal carcinoma of the breast with metastases to the bone on chemotherapy, MSSA bacteremia, hypertension, coronary artery disease, osteoarthritis, history of right hip fracture, and ankle fracture that presented to the emergency room with altered mental status. 1. Severe sepsis with lactic acidosis. Improved. ID following, recommendations appreciated. Continue daptomycin and acyclovir. Continue Tamiflu. Blood cultures positive for staph aureus. Follow up repeat blood cultures. Urine culture with no growth. Patient afebrile. Leukocytosis stable. CT head per radiologist showed no acute intracranial findings. CT abdomen and pelvis per radiologist shows there is distention of the stomach with an air-fluid level, duodenum is also distended, remainder small bowel with normal caliber, there is mural thickening of the distal esophagus, possible esophagitis. 2. Toxic metabolic encephalopathy. Secondary to severe sepsis. Appears to be resolved. Continue with current antibiotics. Continue supportive care. Neurology following, recommendations appreciated. Neurology recommends PURVI. Unable to do MRI secondary to screws in patient's left ankle. 3. Anemia. H&H downtrending. Stool for occult blood on 01/18/2018 positive. Repeat stool for occult blood. Discussed with cream ripener Dr. Alford. Heparin drip stopped per Dr. Alford. 4. Status post RI in a patient with history of coronary artery disease. Cardiology following, recommendations appreciated. 2-D echo per cream ripener showed EF of 20%, mitral regurgitation mild to moderate, mild tricuspid regurgitation, trace to small pericardial effusion. Heparin drip held secondary to downtrending H&H per cardio Dr. Alfodr. Continue aspirin and Plavix. Continue Lipitor. Continue metoprolol and lisinopril. 5. Acute on chronic systolic CHF exacerbation. EF of 20%. Continue on milrinone drip. Continue with metoprolol and lisinopril. Cardiology following, recommendations appreciated. 6. Hypertension. Continue metoprolol and lisinopril. Continue hydralazine prn. Cardiology following, recommendations appreciated. 7. ?Esophagitis on CT abd/pelvis. Recent diarrhea. GI following, recommendations appreciated. C-Diff negative 8. Hypokalemia. Replace Potassium. Follow up repeat labs in AM. 9. History of metastatic breast cancer. Patient follows at [facility] for chemotherapy. 10. GI and DVT prophylaxis. Protonix and heparin drip 11. Patient is a full code Case discussed in detail with the patient regarding current diagnosis and treatment plan. All questions answered.
[2018-01-23] MEDS: Nitroglycerin 2% Ointment Foilpak UD TOP SCH ×4 (05:30→21:57)
[2018-01-23] MEDS: Heparin25000 units/250ml 1/2NS 25,000 UNITS/250 ML BAG IV SCH (05:50)
[2018-01-23] MEDS: oxyCODONE 30 mg Immediate Release Tab PO PRN (05:52)
[2018-01-23] MEDS: Pantoprazole 40 mg EC Tab PO SCH (06:44)
[2018-01-23 07:52] LABS: BASO # 0.04 K/mm3 (0.0-2.0); BASO % 0.2 % (0.0-3.0); EOS # 1.7 (0.0-0.7); EOS % 10.1 % (1.5-5.0); GRAN # 11.59 (1.4-6.5); GRAN % 70.9 % (50.0-68.0); HEMOGLOBIN 9.2 g/dL (12.0-16.0); LYMPH # 1.8 (1.2-3.4); LYMPH % 11.1 % (22.0-35.0); MEAN CELL VOLUME 84.9 fl (80.0-105.0); MEAN CORPUSCULAR HEMOGLOBIN 26.7 pg (25.0-35.0); MEAN CORPUSCULAR HGB CONC 31.5 g/dl (31.0-37.0); MEAN PLATELET VOLUME 10.5 fl (7.0-11.0); MONO # 1.3 (0.1-0.6); MONO % 7.7 % (1.0-6.0); RBC 3.44 10^6/uL (3.5-6.1); RED CELL DISTRIBUTION WIDTH 16.8 % (11.5-14.5); WHITE BLOOD COUNT 16.4 10^3/ul (4.5-11.0)
[2018-01-23 08:07] LABS: BLOOD UREA NITROGEN 20 mg/dL (7-21); CALCIUM 7.9 mg/dL (8.4-10.5); GFR NON-AFRICAN AMERICAN > 60
[2018-01-23 08:42] LABS: TROPONIN I 0.38 ng/mL
[2018-01-23] MEDS ORDERED: Potassium Chloride 20 mEq ER Tab PO STA (09:34)
[2018-01-23] MEDS ORDERED: Alum-Mag Hydrox-Simethicone Susp (30 mL) PO ONE (09:50)
--- NOTE | 2018-01-23 10:04 | CP.PCM.PN ---
Subjective - Date & Time of Evaluation Date of Evaluation: 01/23/18 Time of Evaluation: 06:35 - Subjective Subjective: Awake, alert, no distress Reason for consultation and follow up: Cardiac evaluation of ST elevation myocardial infarction, sepsis, metastatic breat cancer,altered mental status, Seen and examined by me and Dr. Perry Objective - Vital Signs/Intake and Output Vital Signs (last 24 hours): Temp Pulse Resp BP Pulse Ox 98.2 F 78 20 118/68 100 01/23/18 06:00 01/23/18 06:00 01/23/18 06:00 01/23/18 06:00 01/23/18 06:00 Intake and Output: 01/23/18 01/23/18 06:59 18:59 Intake Total 2543 Output Total 1500 Balance 1043 - Medications Medications: Current Medications Aspirin (Aspirin Chewable) 81 mg PO DAILY [facility] Last Admin: 01/22/18 12:10 Dose: 81 mg Atorvastatin Calcium (Lipitor) 40 mg PO DIN [facility] Last Admin: 01/22/18 17:24 Dose: 40 mg Clopidogrel Bisulfate (Plavix) 75 mg PO DAILY [facility] Last Admin: 01/22/18 12:09 Dose: 75 mg Docusate Sodium (Colace) 100 mg PO TID [facility] Last Admin: 01/22/18 19:35 Dose: Not Given Gabapentin (Neurontin) 300 mg PO TID [facility]; Protocol Last Admin: 01/22/18 17:24 Dose: 300 mg Hydralazine HCl (Apresoline) 10 mg IVP Q6 PRN PRN Reason: for SBP>160 Last Admin: 01/20/18 09:23 Dose: 10 mg Hydralazine HCl (Apresoline) 50 mg PO TID [facility] Acyclovir 600 mg/ Sodium (Chloride) 100 mls @ 100 mls/hr IV Q8 [facility]; Protocol Last Admin: 01/23/18 05:50 Dose: 100 mls/hr Heparin Sodium/Sodium Chloride (Heparin 41006 Units/250ml 1/2 Normal Saline) 25,000 units in 250 mls @ 7.838 mls/hr IV .Q24H [facility]; Protocol Last Admin: 01/23/18 05:50 Dose: 14 units/kg/hr, 9.144 mls/hr Milrinone Lactate/Dextrose (Primacor 20mg/100ml D5w) 100 mls @ 3.924 mls/hr IV .Q24H [facility]; Protocol PRN Reason: TITRATE PER MD ORDER Last Admin: 01/22/18 17:27 Dose: 0.2 mcg/kg/min, 3.924 mls/hr Daptomycin 390 mg/ Sodium (Chloride) 100 mls @ 200 mls/hr IV Q24H [facility] Stop: 01/27/18 15:16 Last Admin: 01/22/18 17:25 Dose: 200 mls/hr Lisinopril (Zestril) 20 mg PO DAILY [facility] Last Admin: 01/22/18 12:09 Dose: 20 mg Lorazepam (Ativan) 1 mg IVP Q6 PRN; Protocol PRN Reason: Anxiety Last Admin: 01/22/18 22:45 Dose: 1 mg Metoprolol Tartrate (Lopressor) 25 mg PO BID [facility] Last Admin: 01/22/18 17:24 Dose: 25 mg Nitroglycerin (Nitro-Bid 2% Oint) 1 ea TOP Q6H [facility] Last Admin: 01/23/18 05:30 Dose: 1 ea Ondansetron HCl (Zofran Inj) 4 mg IVP Q6H PRN PRN Reason: Nausea/Vomiting Oseltamivir Phosphate (Tamiflu Susp) 75 mg PO BID [facility]; Protocol Stop: 01/24/18 07:31 Last Admin: 01/22/18 20:01 Dose: 75 mg Pantoprazole Sodium (Protonix Ec Tab) 40 mg PO ACB [facility] Last Admin: 01/23/18 06:44 Dose: 40 mg Tramadol HCl (Ultram) 50 mg PO TID PRN PRN Reason: Pain, severe (8-10) - Labs Labs: 01/23/18 07:00 01/23/18 07:00 PT 21.6 SECONDS (9.4-12.5) H 01/19/18 05:00 INR 1.85 01/19/18 05:00 APTT 60.7 Seconds (25.1-36.5) H 01/23/18 07:00 - Constitutional Appears: Non-toxic, No Acute Distress - Head Exam Head Exam: NORMAL INSPECTION, NORMOCEPHALIC - ENT Exam ENT Exam: Mucous Membranes Dry - Respiratory Exam Respiratory Exam: Decreased Breath Sounds, Clear to Ausculation Bilateral, NORMAL BREATHING PATTERN - Cardiovascular Exam Cardiovascular Exam: REGULAR RHYTHM, +S1, +S2 Additional comments: telemetry 90's NSR - GI/Abdominal Exam GI & Abdominal Exam: Soft, Normal Bowel Sounds - Exam Additional comments: mascorro catheter - Neurological Exam Neurological Exam: Alert, Awake - Psychiatric Exam Psychiatric exam: Normal Affect, Normal Mood - Skin Skin Exam: Dry, Normal Color, Warm Assessment and Plan - Assessment and Plan (Free Text) Assessment: A 62 year old female who was brought to the ER due to altered mental status. Work up in ER showed positive blood culture for MRSA. EKG with ST elevations consistent of myocardial infarction, elevated troponins. Unstable for cardiac cath at admission due to septic shock, medically managed. Started on Heparin drip. History of Stage 4 invasive ductal carcinoma of the breast with bone metastasis.Had recent chemotherapy 2 weeks ago,hypertension,coronary artery disease. Echo showed severe apical hypokinesis consistent with recent myocardial infarction.LVEF 20%.Started on Primacor. Plan: For PURVI on Saturday to rule out endocarditis Denies chest pain, denies shortness of breath Looks very weak Heart rate and blood pressure stable Troponin trending down Continue Primacor drip for low EF Continue Heparin drip for PR PTT therapeutic On ASA 81 mg daily,Lipitor 40 mg daily,Plavix 75 mg daily, Hydralazine 10 mg IVP PRN, Apresoline 50 mg TID, Zestril 20 mg daily, Lopressor 25 mg BID, Nitropaste every 6 hours, Heparin drip titrated to protocol, Milrinone drip Continue current treatment Continue current medications Chart reviewed Will follow up Plan and treatment discussed with Dr. Perry
[2018-01-23] MEDS ORDERED: Potassium Chloride 20 mEq ER Tab PO ONE (13:35)
[2018-01-23] MEDS: Oseltamivir 6 MG/ML PO SCH ×2 (13:56→18:41)
--- NOTE | 2018-01-23 17:32 | CP.PCM.PN ---
Subjective - Date & Time of Evaluation Date of Evaluation: 01/23/18 Time of Evaluation: 11:05 - Subjective Subjective: No fevers, not in distress, more awake today, but still having confusion, no diarrhea. Objective - Vital Signs/Intake and Output Vital Signs (last 24 hours): Temp Pulse Resp BP Pulse Ox 98.2 F 78 20 118/68 100 01/23/18 06:00 01/23/18 06:00 01/23/18 06:00 01/23/18 06:00 01/23/18 06:00 Intake and Output: 01/23/18 01/23/18 06:59 18:59 Intake Total 2339 Output Total 1500 Balance 839 - Medications Medications: Current Medications Aspirin (Aspirin Chewable) [address] [facility] Last Admin: 01/22/18 12:10 Dose: 81 mg Atorvastatin Calcium (Lipitor) [address] [facility] Last Admin: 01/22/18 17:24 Dose: 40 mg Clopidogrel Bisulfate (Plavix) [address] [facility] Last Admin: 01/22/18 12:09 Dose: 75 mg Docusate Sodium (Colace) [address] [facility] Last Admin: 01/22/18 19:35 Dose: Not Given Gabapentin (Neurontin) [address] [facility]; Protocol Last Admin: 01/22/18 17:24 Dose: 300 mg Hydralazine HCl (Apresoline) 10 mg IVP Q6 PRN PRN Reason: for SBP>160 Last Admin: 01/20/18 09:23 Dose: 10 mg Hydralazine HCl (Apresoline) [address] [facility] Acyclovir 600 mg/ Sodium (Chloride) 100 mls @ 100 mls/hr IV Q8 [facility]; Protocol Last Admin: 01/23/18 05:50 Dose: 100 mls/hr Heparin Sodium/Sodium Chloride (Heparin 52683 Units/250ml 1/2 Normal Saline) 25,000 units in 250 mls @ 7.838 mls/hr IV .Q24H [facility]; Protocol Last Admin: 01/23/18 05:50 Dose: 14 units/kg/hr, 9.144 mls/hr Milrinone Lactate/Dextrose (Primacor 20mg/100ml D5w) 100 mls @ 3.924 mls/hr IV .Q24H [facility]; Protocol PRN Reason: TITRATE PER MD ORDER Last Admin: 01/22/18 17:27 Dose: 0.2 mcg/kg/min, 3.924 mls/hr Daptomycin 390 mg/ Sodium (Chloride) 100 mls @ 200 mls/hr IV Q24H [facility] Stop: 01/27/18 15:16 Last Admin: 01/22/18 17:25 Dose: 200 mls/hr Lisinopril (Zestril) [address] [facility] Last Admin: 01/22/18 12:09 Dose: 20 mg Lorazepam (Ativan) 1 mg IVP Q6 PRN; Protocol PRN Reason: Anxiety Last Admin: 01/22/18 22:45 Dose: 1 mg Metoprolol Tartrate (Lopressor) [address] [facility] Last Admin: 01/22/18 17:24 Dose: 25 mg Nitroglycerin (Nitro-Bid 2% Oint) [address] [facility] Last Admin: 01/23/18 05:30 Dose: 1 ea Ondansetron HCl (Zofran Inj) 4 mg IVP Q6H PRN PRN Reason: Nausea/Vomiting Oseltamivir Phosphate (Tamiflu Susp) [address] [facility]; Protocol Stop: 01/24/18 07:31 Last Admin: 01/22/18 20:01 Dose: 75 mg Oxycodone HCl (Oxycodone Immediate Release Tab) 30 mg PO Q6H PRN PRN Reason: Pain, severe (8-10) Last Admin: 01/23/18 05:52 Dose: 30 mg Pantoprazole Sodium (Protonix Ec Tab) [address] [facility] Last Admin: 01/23/18 06:44 Dose: 40 mg - Labs Labs: 01/22/18 06:40 01/22/18 06:40 PT 21.6 SECONDS (9.4-12.5) H 01/19/18 05:00 INR 1.85 01/19/18 05:00 APTT 61.8 Seconds (25.1-36.5) H 01/22/18 06:40 - Constitutional Appears: Chronically Ill - Head Exam Head Exam: NORMAL INSPECTION - Neck Exam Neck Exam: absent: Meningismus - Respiratory Exam Respiratory Exam: Decreased Breath Sounds - Cardiovascular Exam Cardiovascular Exam: +S1, +S2 - GI/Abdominal Exam GI & Abdominal Exam: Soft. absent: Tenderness Assessment and Plan - Assessment and Plan (Free Text) Plan: Assessment systemic inflammatory response syndrome with acute encephalopathy with severe sepsis due to methicillin-sensitive Staph aureus bacteremia, suspicious for endocarditis R/O meningoencephalitis metastatic breast cancer on chemotherapy history of maculopapular rash with eosinophilia, consider allergic reaction R/O drug-induced history of sepsis due to Methicillin-sensitive Staph aureus bacteremia HTN osteoporosis former drug user Plan since there is Staph aureus bacteremia, meningitis is less likely, but would recommend MRI brain with contrast to check for suggestions of HSV encephalitis and to see if there are emoblic phenomena; discussed with Dr. Hare (Neurology) patient developed questionable rash on Nafcillin - we have switched to Daptomycin and will check CPK level; repeat blood cx are still positive and will repeat today; 2D echo does not show vegetations but patient will need PURVI - disc ussed with Dr. Perry - will do it when patient is more stable will continue Acyclovir (day 6) will continue monitor clinically overall prognosis is poor discussed extensively with son-in-law previously
[2018-01-23] MEDS ORDERED: Enoxaparin 80 mg Syringe SC SCH (18:00)
[2018-01-23] MEDS: Milrinone 20mg/100ml D5W 100 ML IV PRN (21:54)
[2018-01-24] MEDS: Nitroglycerin 2% Ointment Foilpak UD TOP SCH ×4 (05:00→22:45)
[2018-01-24 07:09] LABS: BASO # 0.03 K/mm3 (0.0-2.0); BASO % 0.2 % (0.0-3.0); EOS # 1.6 (0.0-0.7); EOS % 11.4 % (1.5-5.0); GRAN # 8.73 (1.4-6.5); GRAN % 63.7 % (50.0-68.0); HEMOGLOBIN 9.1 g/dL (12.0-16.0); LYMPH # 2.2 (1.2-3.4); LYMPH % 16.4 % (22.0-35.0); MEAN CORPUSCULAR HEMOGLOBIN 26.5 pg (25.0-35.0); MEAN CORPUSCULAR HGB CONC 31.6 g/dl (31.0-37.0); MEAN PLATELET VOLUME 10.2 fl (7.0-11.0); MONO # 1.1 (0.1-0.6); MONO % 8.3 % (1.0-6.0); RBC 3.43 10^6/uL (3.5-6.1); RED CELL DISTRIBUTION WIDTH 16.8 % (11.5-14.5); WHITE BLOOD COUNT 13.7 10^3/ul (4.5-11.0)
[2018-01-24 07:33] LABS: ALB/GLOB RATIO 0.8 (1.1-1.8); ALBUMIN 2.4 g/dL (3.0-4.8); ALT/SGPT 41 U/L (7-56); AST/SGOT 47 U/L (14-36); BLOOD UREA NITROGEN 10 mg/dL (7-21); CALCIUM 8.3 mg/dL (8.4-10.5); GFR NON-AFRICAN AMERICAN > 60
[2018-01-24 07:58] LABS: TROPONIN I 0.19 ng/mL
[2018-01-24] MEDS: Pantoprazole 40 mg EC Tab PO SCH (08:36)
--- NOTE | 2018-01-24 09:18 | PN ---
DATE: 01/23/2018 This note is an addition to the note dictated by the nurse practitioner. REASON FOR CONSULTATION AND FOLLOWUP: ST elevation myocardial infarction, sepsis, metastatic breast cancer, altered mental status, ischemic cardiomyopathy. SUBJECTIVE: Patient denies any chest pain, shortness of breath, or any palpitations. Patient feels better. Patient is on heparin and Primacor. We will change to Lovenox and supplement potassium. Troponin is trending down to 0.38. Family approached Dr. Alford because Dr. Alford took care of other family member, so we will sign off the case after today and Dr. Alford will see the patient tomorrow and continue care. Interim, continue atorvastatin, continue aspirin, continue Plavix, continue low-dose beta-deandre as tolerated, continue Primacor for now. We will continue BRIANNA inhibitor and they will change heparin to Lovenox for now. As mentioned, from tomorrow, Dr. Alford will take care of the patient. Also discussed about the recommendation of ID about the PURVI. We will cancel the PURVI for now until patient is seen by Dr. Alford and if necessary, he will reschedule PURVI. We will supplement potassium. Possible ischemic cardiomyopathy. Continue Primacor for now. We will change heparin to Lovenox as treatment for coronary artery disease and treatment for unstable angina. consult. We will sign off for now. Thank you, Dr. Summer Shaffer , for providing us the opportunity in taking care of patient, Denia Strauss. Ignacio Perry MD
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
--- NOTE | 2018-01-24 21:14 | CP.PCM.PN ---
Subjective - Date & Time of Evaluation Date of Evaluation: 01/24/18 Time of Evaluation: 12:20 - Subjective Subjective: More awake but still with some confusion, no fevers, not in distress, no diarrhea. No rash. Objective - Vital Signs/Intake and Output Vital Signs (last 24 hours): Temp Pulse Resp BP Pulse Ox 100.5 F H 100 H 18 160/85 H 98 01/24/18 18:00 01/24/18 18:00 01/24/18 18:00 01/24/18 18:00 01/24/18 00:01 Intake and Output: 01/24/18 01/25/18 18:59 06:59 Intake Total 900 Output Total 2300 Balance -1400 - Medications Medications: Current Medications Acetaminophen (Tylenol 325mg Tab) 650 mg PO Q6H PRN PRN Reason: Pain, moderate (4-7) Aspirin (Aspirin Chewable) 81 mg PO DAILY [facility] Last Admin: 01/23/18 10:38 Dose: 81 mg Atorvastatin Calcium (Lipitor) 40 mg PO DIN [facility] Last Admin: 01/24/18 17:19 Dose: 40 mg Clopidogrel Bisulfate (Plavix) 75 mg PO DAILY [facility] Docusate Sodium (Colace) 100 mg PO BID PRN PRN Reason: Constipation Gabapentin (Neurontin) 300 mg PO TID [facility]; Protocol Last Admin: 01/24/18 17:19 Dose: 300 mg Hydralazine HCl (Apresoline) 10 mg IVP Q6 PRN PRN Reason: for SBP>160 Last Admin: 01/20/18 09:23 Dose: 10 mg Hydralazine HCl (Apresoline) 50 mg PO TID [facility] Acyclovir 600 mg/ Sodium (Chloride) 100 mls @ 100 mls/hr IV Q8 [facility]; Protocol Last Admin: 01/24/18 14:13 Dose: Not Given Milrinone Lactate/Dextrose (Primacor 20mg/100ml D5w) 100 mls @ 3.924 mls/hr IV .Q24H PRN; Protocol PRN Reason: TITRATE PER MD ORDER Last Admin: 01/23/18 21:54 Dose: 0.2 mcg/kg/min, 3.924 mls/hr Daptomycin 390 mg/ Sodium (Chloride) 100 mls @ 200 mls/hr IV Q24H [facility] Stop: 01/27/18 15:16 Last Admin: 01/24/18 17:20 Dose: 200 mls/hr Lisinopril (Zestril) 20 mg PO DAILY [facility] Last Admin: 01/24/18 11:09 Dose: 20 mg Lorazepam (Ativan) 1 mg IVP Q6 PRN; Protocol PRN Reason: Anxiety Last Admin: 01/23/18 21:58 Dose: 1 mg Metoprolol Tartrate (Lopressor) 25 mg PO BID [facility] Last Admin: 01/24/18 17:20 Dose: 25 mg Nitroglycerin (Nitro-Bid 2% Oint) 1 ea TOP Q6H [facility] Last Admin: 01/24/18 17:19 Dose: 1 ea Ondansetron HCl (Zofran Inj) 4 mg IVP Q6H PRN PRN Reason: Nausea/Vomiting Pantoprazole Sodium (Protonix Ec Tab) 40 mg PO ACB [facility] Last Admin: 01/24/18 08:36 Dose: Not Given - Labs Labs: 01/24/18 06:30 01/24/18 06:30 PT 21.6 SECONDS (9.4-12.5) H 01/19/18 05:00 INR 1.85 01/19/18 05:00 APTT 60.7 Seconds (25.1-36.5) H 01/23/18 07:00 - Constitutional Appears: No Acute Distress, Chronically Ill - Respiratory Exam Respiratory Exam: Decreased Breath Sounds - Cardiovascular Exam Cardiovascular Exam: +S1, +S2 - GI/Abdominal Exam GI & Abdominal Exam: Soft. absent: Tenderness Assessment and Plan - Assessment and Plan (Free Text) Plan: Assessment systemic inflammatory response syndrome with acute encephalopathy with severe sepsis due to methicillin-sensitive Staph aureus bacteremia, suspicious for endocarditis R/O meningoencephalitis (due to confusion) elevated troponins R/O NSTEMI metastatic breast cancer on chemotherapy history of maculopapular rash with eosinophilia, consider allergic reaction R/O drug-induced history of sepsis due to Methicillin-sensitive Staph aureus bacteremia HTN osteoporosis former drug user Plan recommend MRI brain with contrast to check for suggestions of HSV encephalitis and to see if there are emoblic phenomena; discussed this with Dr. Hare (Neurology) - awaiting brain MRI patient developed questionable rash on Nafcillin - we have switched to Daptomycin and CPK level is normal; repeat blood cx are still positive and will repeat today; 2D echo does not show vegetations but patient will need PURVI - discussed with Dr. Perry - will do it on Saturday will continue Acyclovir (day 7) will continue monitor clinically overall prognosis is poor discussed extensively with son-in-law previously
--- NOTE | 2018-01-25 04:33 | CP.PCM.PN ---
Subjective - Date & Time of Evaluation Date of Evaluation: 01/25/18 Time of Evaluation: 04:00 - Subjective Subjective: Taurus Saavedra, PGY-1 Progress Note for Hospitalist Service Patient was noted to have further episodes of junctional rhythm. Patient upon presentation is sleeping soundly. Patient is alert and easily arousable. Patient denies chest pain, shortness of breath, dizziness, headaches. F/U AM labs, including CPK for risk of rhabdomyolysis while on Daptomycin. Objective - Vital Signs/Intake and Output Vital Signs (last 24 hours): Temp Pulse Resp BP Pulse Ox 98.2 F 98 H 20 139/76 98 01/25/18 00:01 01/25/18 02:00 01/25/18 00:01 01/25/18 00:01 01/25/18 00:01 Intake and Output: 01/24/18 01/25/18 18:59 06:59 Intake Total 900 Output Total 2300 Balance -1400 - Medications Medications: Current Medications Acetaminophen (Tylenol 325mg Tab) 650 mg PO Q6H PRN PRN Reason: Pain, moderate (4-7) Aspirin (Aspirin Chewable) 81 mg PO DAILY [facility] Last Admin: 01/23/18 10:38 Dose: 81 mg Atorvastatin Calcium (Lipitor) 40 mg PO DIN [facility] Last Admin: 01/24/18 17:19 Dose: 40 mg Clopidogrel Bisulfate (Plavix) 75 mg PO DAILY [facility] Docusate Sodium (Colace) 100 mg PO BID PRN PRN Reason: Constipation Gabapentin (Neurontin) 300 mg PO TID [facility]; Protocol Last Admin: 01/24/18 17:19 Dose: 300 mg Hydralazine HCl (Apresoline) 10 mg IVP Q6 PRN PRN Reason: for SBP>160 Last Admin: 01/20/18 09:23 Dose: 10 mg Hydralazine HCl (Apresoline) 50 mg PO TID [facility] Acyclovir 600 mg/ Sodium (Chloride) 100 mls @ 100 mls/hr IV Q8 [facility]; Protocol Last Admin: 01/24/18 22:42 Dose: 100 mls/hr Milrinone Lactate/Dextrose (Primacor 20mg/100ml D5w) 100 mls @ 3.924 mls/hr IV .Q24H PRN; Protocol PRN Reason: TITRATE PER MD ORDER Last Admin: 01/23/18 21:54 Dose: 0.2 mcg/kg/min, 3.924 mls/hr Daptomycin 390 mg/ Sodium (Chloride) 100 mls @ 200 mls/hr IV Q24H [facility] Stop: 01/27/18 15:16 Last Admin: 01/24/18 17:20 Dose: 200 mls/hr Lisinopril (Zestril) 20 mg PO DAILY [facility] Last Admin: 01/24/18 11:09 Dose: 20 mg Lorazepam (Ativan) 1 mg IVP Q6 PRN; Protocol PRN Reason: Anxiety Last Admin: 01/24/18 22:39 Dose: 1 mg Metoprolol Tartrate (Lopressor) 25 mg PO BID [facility] Last Admin: 01/24/18 17:20 Dose: 25 mg Nitroglycerin (Nitro-Bid 2% Oint) 1 ea TOP Q6H [facility] Last Admin: 01/24/18 17:19 Dose: 1 ea Ondansetron HCl (Zofran Inj) 4 mg IVP Q6H PRN PRN Reason: Nausea/Vomiting Pantoprazole Sodium (Protonix Ec Tab) 40 mg PO ACB [facility] Last Admin: 01/24/18 08:36 Dose: Not Given - Labs Labs: 01/24/18 06:30 01/24/18 06:30 PT 21.6 SECONDS (9.4-12.5) H 01/19/18 05:00 INR 1.85 01/19/18 05:00 APTT 60.7 Seconds (25.1-36.5) H 01/23/18 07:00
[2018-01-25] MEDS: Milrinone 20mg/100ml D5W 100 ML IV PRN (05:47)
[2018-01-25] MEDS: Nitroglycerin 2% Ointment Foilpak UD TOP SCH ×4 (06:24→21:51)
[2018-01-25 07:37] LABS: BASO # 0.03 K/mm3 (0.0-2.0); BASO % 0.2 % (0.0-3.0); EOS # 1.4 (0.0-0.7); EOS % 9.3 % (1.5-5.0); GRAN # 9.42 (1.4-6.5); GRAN % 63.4 % (50.0-68.0); HEMOGLOBIN 9.7 g/dL (12.0-16.0); LYMPH # 2.6 (1.2-3.4); LYMPH % 17.6 % (22.0-35.0); MEAN CELL VOLUME 84.7 fl (80.0-105.0); MEAN CORPUSCULAR HEMOGLOBIN 27.4 pg (25.0-35.0); MEAN CORPUSCULAR HGB CONC 32.3 g/dl (31.0-37.0); MEAN PLATELET VOLUME 10.3 fl (7.0-11.0); MONO # 1.4 (0.1-0.6); MONO % 9.5 % (1.0-6.0); RBC 3.54 10^6/uL (3.5-6.1); RED CELL DISTRIBUTION WIDTH 17.3 % (11.5-14.5); WHITE BLOOD COUNT 14.9 10^3/ul (4.5-11.0)
[2018-01-25 08:06] LABS: ALB/GLOB RATIO 0.8 (1.1-1.8); ALBUMIN 2.6 g/dL (3.0-4.8); ALT/SGPT 47 U/L (7-56); AST/SGOT 54 U/L (14-36); BLOOD UREA NITROGEN 8 mg/dL (7-21); CALCIUM 8.2 mg/dL (8.4-10.5); GFR NON-AFRICAN AMERICAN > 60
[2018-01-25] MEDS: Pantoprazole 40 mg EC Tab PO SCH (08:38)
[2018-01-25] MEDS ORDERED: Potassium Chloride 20 mEq ER Tab PO ONE (08:43)
--- NOTE | 2018-01-25 10:29 | PN ---
DATE: 01/25/2018 CARDIOLOGY FOLLOWUP SUBJECTIVE: The patient is calm today. No chest pain noted. No shortness of breath. PHYSICAL EXAMINATION VITAL SIGNS: Blood pressure is 137/83, the heart rate is in the 90s. NECK: Negative JVD. LUNGS: Without rales. HEART: Reveals S1 and S2. EXTREMITIES: Without edema. LABORATORY DATA: Hemoglobin is 9.7. Chemistries: BUN and creatinine are unremarkable. IMPRESSION: 1. Status post non-ST elevation myocardial infarction. 2. Episode of delirium, which is now better. 3. Ischemic dilated cardiomyopathy. 4. Status post anterior wall myocardial infarction. 5. Diabetes mellitus. 6. Hypertension. PLAN: Given these findings, we will treat her myocardial infarction medically. We will continue on the aspirin, beta-blockers and clopidogrel. Riki Alford MD
--- NOTE | 2018-01-25 15:28 | CP.PCM.PN ---
<[place] - Last Filed: 01/25/18 15:20> Subjective - Date & Time of Evaluation Date of Evaluation: 01/25/18 Time of Evaluation: 15:20 - Subjective Subjective: PGY-2 medicine progress note for Dr Kaminski Overnight patient was noted to have juntional rhythm - was asymptomatic. Today patient AAOx3. Appeared comfortable. Seen by speech pathologist - diet advanced to regular consistency. Also seen by psychiatrist today. Objective - Vital Signs/Intake and Output Vital Signs (last 24 hours): Temp Pulse Resp BP Pulse Ox 98.5 F 81 17 125/57 L 97 01/25/18 12:00 01/25/18 14:00 01/25/18 12:00 01/25/18 12:00 01/25/18 06:00 Intake and Output: 01/25/18 01/25/18 06:59 18:59 Intake Total 1808 Output Total 4500 Balance -2692 - Medications Medications: Current Medications Acetaminophen (Tylenol 325mg Tab) 650 mg PO Q6H PRN PRN Reason: Pain, moderate (4-7) Aspirin (Aspirin Chewable) 81 mg PO DAILY COUNTS INCLUDE 234 BEDS AT THE [facility] Last Admin: 01/23/18 10:38 Dose: 81 mg Atorvastatin Calcium (Lipitor) 40 mg PO DIN COUNTS INCLUDE 234 BEDS AT THE [facility] Last Admin: 01/24/18 17:19 Dose: 40 mg Clopidogrel Bisulfate (Plavix) 75 mg PO DAILY COUNTS INCLUDE 234 BEDS AT THE [facility] Last Admin: 01/25/18 10:34 Dose: 75 mg Docusate Sodium (Colace) 100 mg PO BID PRN PRN Reason: Constipation Gabapentin (Neurontin) 300 mg PO TID COUNTS INCLUDE 234 BEDS AT THE [facility]; Protocol Last Admin: 01/25/18 13:21 Dose: 300 mg Hydralazine HCl (Apresoline) 10 mg IVP Q6 PRN PRN Reason: for SBP>160 Last Admin: 01/20/18 09:23 Dose: 10 mg Hydralazine HCl (Apresoline) 50 mg PO TID COUNTS INCLUDE 234 BEDS AT THE [facility] Acyclovir 600 mg/ Sodium (Chloride) 100 mls @ 100 mls/hr IV Q8 COUNTS INCLUDE 234 BEDS AT THE [facility]; Protocol Last Admin: 01/25/18 13:20 Dose: 100 mls/hr Daptomycin 390 mg/ Sodium (Chloride) 100 mls @ 200 mls/hr IV Q24H COUNTS INCLUDE 234 BEDS AT THE [facility] Stop: 01/27/18 15:16 Last Admin: 01/24/18 17:20 Dose: 200 mls/hr Lisinopril (Zestril) 20 mg PO DAILY COUNTS INCLUDE 234 BEDS AT THE [facility] Last Admin: 01/25/18 10:35 Dose: 20 mg Lorazepam (Ativan) 1 mg IVP Q6 PRN; Protocol PRN Reason: Anxiety Last Admin: 01/24/18 22:39 Dose: 1 mg Metoprolol Tartrate (Lopressor) 25 mg PO BID COUNTS INCLUDE 234 BEDS AT THE [facility] Last Admin: 01/25/18 10:35 Dose: 25 mg Nitroglycerin (Nitro-Bid 2% Oint) 1 ea TOP Q6H COUNTS INCLUDE 234 BEDS AT THE [facility] Last Admin: 01/25/18 10:34 Dose: 1 ea Ondansetron HCl (Zofran Inj) 4 mg IVP Q6H PRN PRN Reason: Nausea/Vomiting Pantoprazole Sodium (Protonix Ec Tab) 40 mg PO ACB COUNTS INCLUDE 234 BEDS AT THE [facility] Last Admin: 01/25/18 08:38 Dose: 40 mg Quetiapine Fumarate (Seroquel) 12.5 mg PO HS PRN; Protocol PRN Reason: confusion/agitation/psychosis - Labs Labs: 01/25/18 06:00 01/25/18 06:00 PT 21.6 SECONDS (9.4-12.5) H 01/19/18 05:00 INR 1.85 01/19/18 05:00 APTT 60.7 Seconds (25.1-36.5) H 01/23/18 07:00 - Additional Findings Additional findings: - Constitutional Appears: Non-toxic, Chronically Ill - Head Exam Head Exam: ATRAUMATIC, NORMAL INSPECTION - Eye Exam Eye Exam: EOMI, Normal appearance - ENT Exam ENT Exam: Mucous Membranes Moist, Normal Exam - Neck Exam Neck Exam: Normal Inspection. absent: Meningismus - Respiratory Exam Respiratory Exam: Clear to Ausculation Bilateral, NORMAL BREATHING PATTERN - Cardiovascular Exam Cardiovascular Exam: REGULAR RHYTHM, +S1, +S2 - GI/Abdominal Exam GI & Abdominal Exam: Soft, Normal Bowel Sounds - Extremities Exam Extremities Exam: Normal Inspection. absent: Calf Tenderness - Back Exam Back Exam: NORMAL INSPECTION - Neurological Exam Neurological Exam: Alert, Awake - Psychiatric Exam Psychiatric exam: calm - Skin Skin Exam: Dry, Intact, Warm Assessment and Plan - Assessment and Plan (Free Text) Plan: Patient is a 62-year-old female past medical history significant for age for invasive ductal carcinoma of the breast with metastases to the bone on chemotherapy, MSSA bacteremia, hypertension, coronary artery disease, osteoart hritis, history of right hip fracture, and ankle fracture that presented to the emergency room with altered mental status. Plan: 1. Severe sepsis with lactic acidosis. Improved. ID following, recommendations appreciated. Continue daptomycin and acyclovir. Continue Tamiflu. Blood cultures positive for staph aureus. Follow up repeat blood cultures. Urine culture with no growth. Patient afebrile. Leukocytosis stable. CT head per radiologist showed no acute intracranial findings. CT abdomen and pelvis per radiologist shows there is distention of the stomach with an air-fluid level, duodenum is also distended, remainder small bowel with normal caliber, there is mural thickening of the distal esophagus, possible esophagitis. PURVI tentatively scheduled for 01/27 2. Toxic metabolic encephalopathy. Secondary to severe sepsis. Appears to be resolved. Continue with current antibiotics. Continue supportive care. Neurology following, recommendations appreciated. Neurology recommends PURVI. Unable to do MRI secondary to screws in patient's left ankle. 3. Anemia. H&H downtrending. Stool for occult blood on 01/18/2018 positive. Repeat stool for occult blood. Discussed with brusher tender Dr. Alford. Heparin drip stopped per Dr. Alford. GI consulted, Dr Briggs * Suggest conservative GI treatment - last seen by GI 01/19 4. Status post VA in a patient with history of coronary artery disease. Cardiology following, recommendations appreciated. 2-D echo per brusher tender showed EF of 20%, mitral regurgitation mild to moderate, mild tricuspid regurgitation, trace to small pericardial effusion. Heparin drip held secondary to downtrending H&H per cardio Dr. Alford. Continue aspirin and Plavix. Continue Lipitor. Continue metoprolol and lisinopril. Cardiology consulted, Dr Alford * Treat her VA medically - continue aspirin, beta-blockers, clopidogrel. 5. Acute on chronic systolic CHF exacerbation. EF of 20%. Continue on milrinone drip. Continue with metoprolol and lisinopril. Cardiology following, recommendations appreciated. 6. Hypertension. Continue metoprolol and lisinopril. Continue hydralazine prn. Cardiology following, recommendations appreciated. 7. ?Esophagitis on CT abd/pelvis. Recent diarrhea. GI following, recommendations appreciated. C-Diff negative 8. Hypokalemia. Replace Potassium. Follow up repeat labs in AM. 9. History of metastatic breast cancer. Patient follows at [facility] for chemotherapy. 10. GI and DVT prophylaxis. Protonix and heparin drip 11. Patient is a full code Case discussed in detail with the patient regarding current diagnosis and treatment plan. All questions answered. <[place] - Last Filed: 01/25/18 15:31> Objective - Vital Signs/Intake and Output Vital Signs (last 24 hours): Temp Pulse Resp BP Pulse Ox 98.5 F 81 17 125/57 L 97 01/25/18 12:00 01/25/18 14:00 01/25/18 12:00 01/25/18 12:00 01/25/18 06:00 Intake and Output: 01/25/18 01/25/18 06:59 18:59 Intake Total 1808 Output Total 4500 Balance -2692 - Medications Medications: Current Medications Acetaminophen (Tylenol 325mg Tab) 650 mg PO Q6H PRN PRN Reason: Pain, moderate (4-7) Aspirin (Aspirin Chewable) 81 mg PO DAILY COUNTS INCLUDE 234 BEDS AT THE [facility] Last Admin: 01/23/18 10:38 Dose: 81 mg Atorvastatin Calcium (Lipitor) 40 mg PO DIN COUNTS INCLUDE 234 BEDS AT THE [facility] Last Admin: 01/24/18 17:19 Dose: 40 mg Clopidogrel Bisulfate (Plavix) 75 mg PO DAILY COUNTS INCLUDE 234 BEDS AT THE [facility] Last Admin: 01/25/18 10:34 Dose: 75 mg Docusate Sodium (Colace) 100 mg PO BID PRN PRN Reason: Constipation Gabapentin (Neurontin) 300 mg PO TID COUNTS INCLUDE 234 BEDS AT THE [facility]; Protocol Last Admin: 01/25/18 13:21 Dose: 300 mg Hydralazine HCl (Apresoline) 10 mg IVP Q6 PRN PRN Reason: for SBP>160 Last Admin: 01/20/18 09:23 Dose: 10 mg Hydralazine HCl (Apresoline) 50 mg PO TID [facility] Acyclovir 600 mg/ Sodium (Chloride) 100 mls @ 100 mls/hr IV Q8 COUNTS INCLUDE 234 BEDS AT THE [facility]; Protocol Last Admin: 01/25/18 13:20 Dose: 100 mls/hr Daptomycin 390 mg/ Sodium (Chloride) 100 mls @ 200 mls/hr IV Q24H [facility] Stop: 01/27/18 15:16 Last Admin: 01/24/18 17:20 Dose: 200 mls/hr Lisinopril (Zestril) 20 mg PO DAILY COUNTS INCLUDE 234 BEDS AT THE [facility] Last Admin: 01/25/18 10:35 Dose: 20 mg Lorazepam (Ativan) 1 mg IVP Q6 PRN; Protocol PRN Reason: Anxiety Last Admin: 01/24/18 22:39 Dose: 1 mg Metoprolol Tartrate (Lopressor) 25 mg PO BID COUNTS INCLUDE 234 BEDS AT THE [facility] Last Admin: 01/25/18 10:35 Dose: 25 mg Nitroglycerin (Nitro-Bid 2% Oint) 1 ea TOP Q6H [facility] Last Admin: 01/25/18 10:34 Dose: 1 ea Ondansetron HCl (Zofran Inj) 4 mg IVP Q6H PRN PRN Reason: Nausea/Vomiting Oxycodone HCl (Oxycodone Immediate Release Tab) 10 mg PO Q6H PRN PRN Reason: Pain, severe (8-10) Pantoprazole Sodium (Protonix Ec Tab) 40 mg PO ACB COUNTS INCLUDE 234 BEDS AT THE [facility] Last Admin: 01/25/18 08:38 Dose: 40 mg Quetiapine Fumarate (Seroquel) 12.5 mg PO HS PRN; Protocol PRN Reason: confusion/agitation/psychosis - Labs Labs: 01/25/18 06:00 01/25/18 06:00 PT 21.6 SECONDS (9.4-12.5) H 01/19/18 05:00 INR 1.85 01/19/18 05:00 APTT 60.7 Seconds (25.1-36.5) H 01/23/18 07:00 Attending/Attestation - Attestation I have personally seen and examined this patient.: Yes I have fully participated in the care of the patient.: Yes I have reviewed all pertinent clinical information, including history, physical exam and plan: Yes
[2018-01-25] MEDS: oxyCODONE 10 mg Immediate Release Tab PO PRN (17:35)
--- NOTE | 2018-01-25 17:55 | PN ---
DATE: 01/25/2018 SUBJECTIVE: The patient is seen earlier in 277, bed 1. No fevers and no chills. She is comfortable. She states she is doing much better. PHYSICAL EXAMINATION: VITAL SIGNS: On exam, temperature is down to 98.5, T-max yesterday was 100.5; heart rate of 90, it was up to 104 with a respiratory rate of 20; blood pressure is 130/80. HEENT: Examination of HEENT is unremarkable. NECK: Supple. LUNGS: Have decreased breath sounds. HEART: Normal S1, S2. ABDOMEN: Soft. LABORATORY DATA: Laboratory examination reveals a white count of 14,900, hemoglobin of 9, platelets of 291. Chemistries reveals a BUN of 8, creatinine of 0.6. Procalcitonin is noted to be elevated at 0.69 and urinalysis is noted. Stool for occult blood is positive. Vanco trough of 12.5. Influenza is negative. Microbiology reveals the Staph aureus in the blood cultures from 01/18/2018, which is sensitive Staph aureus. Repeat cultures from 01/19/2018 were negative. However, a repeat one from 01/20/2018 is turned again positive with a sensitive Staph aureus. Review of orders reveals the patient to be on daptomycin and acyclovir. ASSESSMENT AND PLAN: A 62-year-old female with sepsis with sensitive Staphylococcus aureus bacteremia, suspicious for endocarditis, meningoencephalitis, elevated troponins with [id number] myocardial infarction in a patient with metastatic cancer, chemotherapy, metastatic breast cancer, did have a rash, did have a history of sensitive Staphylococcus bacteremia. The patient had a CAT scan of the head with contrast, which shows negative. CT of the abdomen and pelvis, which is noted. The patient also had a chest x-ray. No active lung disease. We will continue the daptomycin for now. Dr. Riki Alford's note is reviewed. The patient is a diabetic, hypertensive, did have anterior wall myocardial infarction and does have ischemic dilated cardiomyopathy and an episode of delirium. Did have an echo on 01/19/2018. Repeat blood cultures x2. Recommend repeating the echo and will need a PURVI. We will follow with you. Jamel Valencia MD
--- NOTE | 2018-01-25 23:06 | CON ---
DATE: 01/25/2018 CONSULTATION NOTE SUBJECTIVE: The patient is a 62-year-old female with stage IV invasive ductal carcinoma of breast with bone metastasis. The patient has multiple medical issues; hypertension, coronary artery disease, and osteoarthritis. The patient was admitted on the medical site status post altered mental status. The patient was acting bizarre and strange. The patient was found to have severe sepsis. The patient also was diagnosed with toxic metabolic encephalopathy due to severe sepsis. This video games storywriter evaluated the patient today. The patient presented to be somewhat confused, but knows that she is in the hospital. The patient seems to be disengaged and not willing to talk to this video games storywriter, was interested to watch TV more than talk to this video games storywriter. The patient denied that she feels depressed. The patient reported that she sleeps fine and seems to be annoyed with all this video games storywriter's questions. The patient adamantly denied any thoughts of killing herself whatsoever. The patient denied hearing voices, denied seeing things, but as per staff, the patient was paranoid and guarded. At the same time, no agitation, no aggression. The patient denied any history of mental illness. The patient denied ever been hospitalized into the Psychiatric Inpatient Unit. Vital signs seem to be stable. Temperature 98.4, pulse is 104, blood pressure 123/80, respirations 20 and oxygen saturation is 97. Medications reviewed. The patient is on Tylenol, acyclovir, aspirin, Lipitor, Plavix, sodium chloride, Colace, Neurontin, hydralazine, Zestril, Ativan, Lopressor, nitroglycerin, Zofran, and Protonix. This video games storywriter would implement Seroquel 12.5 mg at the nighttime for possible delirium stage and possible psychosis over nighttime. Labs reviewed. The patient still has leukocytosis 14.9. Hemoglobin and hematocrit are low at 9.7 and 30.0. Microbiology reviewed. Staph aureus in blood. The patient is septic. Reports reviewed. MENTAL STATUS EXAMINATION: The patient appears to be somewhat confused but knows that she is in the hospital, seems to be disengaged and annoyed with all of this video games storywriter's questions. The patient denied being depressed. Affect was flat. Thought process seems to be concrete. Thought content, the patient denied hearing voices, denied seeing things but obviously the patient presented to be guarded. The patient denied thoughts of harming herself or others. Denied intent or plan. Insight and judgment seems to be limited. Impulses are well controlled. IMPRESSION: Agree with Neurology team that the patient is in delirium stage due to multiple medical issues including sepsis. The patient also has Staph aureus bacteremia, suspicious for endocarditis, rule out NSTEMI. Metastatic breast cancer on chemotherapy. Osteoporosis. The patient has history of drug use. PLAN: Seroquel was started for periods of confusion and delirium 12.5 mg at the nighttime as needed. Continue current management. Continue Infectious Disease followup. Continue Neurology followup. Continue Cardiology followup, Hematology and Oncology. From the psychiatric standpoint, there are no acute issues going on and periods of confusion and paranoia related to medical issues and delirium stage. Overall, prognosis is very poor. Family involved. The patient is on full code. The patient was seen by Palliative Care. This video games storywriter signed off. Should you have any questions, give me a call back. There are no acute psychiatric issues going on. Aretha Garcia MD
[2018-01-26] MEDS: Nitroglycerin 2% Ointment Foilpak UD TOP SCH ×2 (06:15→10:54)
[2018-01-26 07:53] LABS: BASO # 0.04 K/mm3 (0.0-2.0); BASO % 0.3 % (0.0-3.0); EOS # 1.2 (0.0-0.7); EOS % 8.7 % (1.5-5.0); GRAN # 8.12 (1.4-6.5); GRAN % 59.1 % (50.0-68.0); HEMOGLOBIN 9.4 g/dL (12.0-16.0); LYMPH % 21.9 % (22.0-35.0); MEAN CELL VOLUME 85.5 fl (80.0-105.0); MEAN CORPUSCULAR HEMOGLOBIN 27.2 pg (25.0-35.0); MEAN CORPUSCULAR HGB CONC 31.9 g/dl (31.0-37.0); MEAN PLATELET VOLUME 9.9 fl (7.0-11.0); MONO # 1.4 (0.1-0.6); RBC 3.45 10^6/uL (3.5-6.1); RED CELL DISTRIBUTION WIDTH 17.8 % (11.5-14.5); WHITE BLOOD COUNT 13.7 10^3/ul (4.5-11.0)
[2018-01-26 08:09] LABS: ALB/GLOB RATIO 0.8 (1.1-1.8); ALBUMIN 2.7 g/dL (3.0-4.8); ALT/SGPT 49 U/L (7-56); AST/SGOT 63 U/L (14-36); BLOOD UREA NITROGEN 9 mg/dL (7-21); GFR NON-AFRICAN AMERICAN > 60
[2018-01-26] MEDS: Pantoprazole 40 mg EC Tab PO SCH (08:31)
[2018-01-26] MEDS ORDERED: Potassium Chloride 20 mEq ER Tab PO STA (08:36)
[2018-01-26] MEDS: oxyCODONE 10 mg Immediate Release Tab PO PRN ×2 (08:45→16:31)
--- NOTE | 2018-01-26 10:28 | CP.PCM.PN ---
<Nima Shaffer - Last Filed: 01/26/18 15:10> Subjective - Date & Time of Evaluation Date of Evaluation: 01/26/18 Time of Evaluation: 10:25 - Subjective Subjective: Nima Shaffer DO PGY1 - Internal Medicine [facility] - Hospital Progress Note Patient seen and examined at bedside this morning Pt. c/o pain overnight; pain regimen reasssed; long acting opiate started; will reassess within 24H Communicated to patient that regimen has been adjusted. Pain is located in R hip and L ankle and reports its secondary to orthopedic procedures in the past. Objective - Vital Signs/Intake and Output Vital Signs (last 24 hours): Temp Pulse Resp BP Pulse Ox 97.8 F 99 H 20 116/70 96 01/26/18 06:00 01/26/18 06:00 01/26/18 06:00 01/26/18 06:00 01/26/18 06:00 Intake and Output: 01/26/18 01/26/18 06:59 18:59 Intake Total 2360 Output Total 3600 Balance -1240 - Medications Medications: Current Medications Acetaminophen (Tylenol 325mg Tab) 650 mg PO Q6H PRN PRN Reason: Pain, moderate (4-7) Last Admin: 01/25/18 21:51 Dose: 650 mg Aspirin (Aspirin Chewable) 81 mg PO DAILY [facility] Last Admin: 01/23/18 10:38 Dose: 81 mg Atorvastatin Calcium (Lipitor) 40 mg PO DIN [facility] Last Admin: 01/25/18 17:31 Dose: 40 mg Clopidogrel Bisulfate (Plavix) 75 mg PO DAILY [facility] Last Admin: 01/25/18 10:34 Dose: 75 mg Docusate Sodium (Colace) 100 mg PO BID PRN PRN Reason: Constipation Gabapentin (Neurontin) 300 mg PO TID [facility]; Protocol Last Admin: 01/25/18 17:31 Dose: 300 mg Hydralazine HCl (Apresoline) 10 mg IVP Q6 PRN PRN Reason: for SBP>160 Last Admin: 01/20/18 09:23 Dose: 10 mg Hydralazine HCl (Apresoline) 50 mg PO TID [facility] Acyclovir 600 mg/ Sodium (Chloride) 100 mls @ 100 mls/hr IV Q8 [facility]; Protocol Last Admin: 01/26/18 05:15 Dose: 100 mls/hr Daptomycin 390 mg/ Sodium (Chloride) 100 mls @ 200 mls/hr IV Q24H [facility] Stop: 01/27/18 15:16 Last Admin: 01/25/18 15:41 Dose: 200 mls/hr Lisinopril (Zestril) 20 mg PO DAILY [facility] Last Admin: 01/25/18 10:35 Dose: 20 mg Lorazepam (Ativan) 1 mg IVP Q6 PRN; Protocol PRN Reason: Anxiety Last Admin: 01/24/18 22:39 Dose: 1 mg Metoprolol Tartrate (Lopressor) 25 mg PO BID [facility] Last Admin: 01/25/18 17:30 Dose: 25 mg Nitroglycerin (Nitro-Bid 2% Oint) 1 ea TOP Q6H [facility] Last Admin: 01/26/18 06:15 Dose: Not Given Ondansetron HCl (Zofran Inj) 4 mg IVP Q6H PRN PRN Reason: Nausea/Vomiting Oxycodone HCl (Oxycontin Extended Release Tab) 10 mg PO Q12 [facility] Stop: 01/29/18 10:31 Oxycodone HCl (Oxycodone Immediate Release Tab) 10 mg PO Q6H PRN PRN Reason: Pain, severe (8-10) Pantoprazole Sodium (Protonix Ec Tab) 40 mg PO ACB [facility] Last Admin: 01/26/18 08:31 Dose: 40 mg Quetiapine Fumarate (Seroquel) 12.5 mg PO HS PRN; Protocol PRN Reason: confusion/agitation/psychosis Last Admin: 01/25/18 21:51 Dose: 12.5 mg - Labs Labs: 01/26/18 06:30 01/26/18 06:30 PT 21.6 SECONDS (9.4-12.5) H 01/19/18 05:00 INR 1.85 01/19/18 05:00 APTT 60.7 Seconds (25.1-36.5) H 01/23/18 07:00 - Constitutional Appears: Non-toxic, Chronically Ill - Head Exam Head Exam: ATRAUMATIC, NORMAL INSPECTION - Eye Exam Eye Exam: EOMI, Normal appearance - ENT Exam ENT Exam: Mucous Membranes Moist, Normal Exam - Neck Exam Neck Exam: Normal Inspection. absent: Meningismus - Respiratory Exam Respiratory Exam: Clear to Ausculation Bilateral, NORMAL BREATHING PATTERN - Cardiovascular Exam Cardiovascular Exam: REGULAR RHYTHM, +S1, +S2 - GI/Abdominal Exam GI & Abdominal Exam: Soft, Normal Bowel Sounds - Extremities Exam Extremities Exam: Normal Inspection. absent: Calf Tenderness - Back Exam Back Exam: NORMAL INSPECTION - Neurological Exam Neurological Exam: Alert, Awake - Psychiatric Exam Psychiatric exam: calm - Skin Skin Exam: Dry, Intact, Warm Assessment and Plan - Assessment and Plan (Free Text) Assessment: Patient is a 62-year-old female past medical history significant for age for invasive ductal carcinoma of the breast with metastases to the bone on chemotherapy, MSSA bacteremia, hypertension, coronary artery disease, osteoarthritis, history of right hip fracture, and ankle fracture that presented to the emergency room with altered mental status. Patient is clinically stable w/o s/s of infection/ sepsis at this time. Will get PURVI on 01/26 to evaluate for vegetation. Plan: Severe sepsis with lactic acidosis. Patient afebrile w/ improving leukocytosis maintaining pressure well Blood cultures positive for staph aureus. Follow up repeat blood cultures. Repeat Cx negative UCx negative ID following, recommendations appreciated. Continue daptomycin and acyclovir. CT head per radiologist showed no acute intracranial findings. CT abdomen and pelvis per radiologist shows there is distention of the stomach with an air-fluid level, duodenum is also distended, remainder small bowel with normal caliber, there is mural thickening of the distal esophagus, possible esophagitis. PURVI tomorrow. Toxic metabolic encephalopathy -Resolved Most likely 2/2 Sepsis Chronic Pain: Oxycontin 10 - ER Q12 PRN Oxycodone 10 - IR Q6 PRN Anemia. H&H downtrending. Stool for occult blood on 01/18/2018 positive. Discussed with auto washer Dr. Alford. Heparin drip stopped per Dr. Alford. GI consulted, Dr Briggs * Suggest conservative GI treatment - last seen by GI 01/19 Status post [place] in a patient with history of coronary artery disease. Cardiology following, recommendations appreciated. 2-D echo per auto washer showed EF of 20%, mitral regurgitation mild to moderate, mild tricuspid regurgitation, trace to small pericardial effusion. Heparin drip held secondary to downtrending H&H per cardio Dr. Alford. Continue aspirin and Plavix. Continue Lipitor. Continue metoprolol and lisinopril. Cardiology consulted, Dr Alford * Treat her [place] medically - continue aspirin, beta-blockers, clopidogrel. Acute on chronic systolic CHF exacerbation. EF of 20%. Continue with metoprolol and lisinopril. Cardiology following, recommendations appreciated. Hypertension. Continue metoprolol and lisinopril. Continue hydralazine prn. Cardiology following, recommendations appreciated. Esophagitis on CT abd/pelvis. Recent diarrhea. GI following, recommendations appreciated. C-Diff negative Pt. asymptomatic GI prophylaxis w/ Protonix 40 PO QD Hypokalemia. Replace Potassium. Follow up repeat labs in AM. History of metastatic breast cancer. Patient follows at [facility] for chemotherapy. GI and DVT prophylaxis. Protonix and SCD Patient is a full code Patient was seen, examined and discussed w/ attending physician Dr. Yamilex Shaffer DO PGY1 Internal Medicine [employer] [facility] - Pager [phone] <Ld Kaminski - Last Filed: 01/26/18 17:40> Objective - Vital Signs/Intake and Output Vital Signs (last 24 hours): Temp Pulse Resp BP Pulse Ox 99.5 F 91 H 18 149/87 96 01/26/18 12:00 01/26/18 14:00 01/26/18 12:00 01/26/18 12:00 01/26/18 06:00 Intake and Output: 01/26/18 01/26/18 06:59 18:59 Intake Total 2360 Output Total 3600 Balance -1240 - Medications Medications: Current Medications Acetaminophen (Tylenol 325mg Tab) 650 mg PO Q6H PRN PRN Reason: Pain, moderate (4-7) Last Admin: 01/25/18 21:51 Dose: 650 mg Aspirin (Aspirin Chewable) 81 mg PO DAILY [facility] Last Admin: 01/23/18 10:38 Dose: 81 mg Atorvastatin Calcium (Lipitor) 40 mg PO DIN [facility] Last Admin: 01/25/18 17:31 Dose: 40 mg Docusate Sodium (Colace) 100 mg PO BID PRN PRN Reason: Constipation Gabapentin (Neurontin) 300 mg PO TID [facility]; Protocol Last Admin: 01/26/18 14:36 Dose: 300 mg Hydralazine HCl (Apresoline) 10 mg IVP Q6 PRN PRN Reason: for SBP>160 Last Admin: 01/20/18 09:23 Dose: 10 mg Acyclovir 600 mg/ Sodium (Chloride) 100 mls @ 100 mls/hr IV Q8 [facility]; Protocol Last Admin: 01/26/18 14:39 Dose: 100 mls/hr Daptomycin 390 mg/ Sodium (Chloride) 100 mls @ 200 mls/hr IV Q24H [facility] Stop: 01/27/18 15:16 Last Admin: 01/25/18 15:41 Dose: 200 mls/hr Lisinopril (Zestril) 20 mg PO DAILY [facility] Last Admin: 01/26/18 10:53 Dose: 20 mg Lorazepam (Ativan) 1 mg IVP Q6 PRN; Protocol PRN Reason: Anxiety Last Admin: 01/24/18 22:39 Dose: 1 mg Metoprolol Tartrate (Lopressor) 25 mg PO BID [facility] Last Admin: 01/26/18 10:53 Dose: 25 mg Ondansetron HCl (Zofran Inj) 4 mg IVP Q6H PRN PRN Reason: Nausea/Vomiting Oxycodone HCl (Oxycontin Extended Release Tab) 10 mg PO Q12 [facility] Stop: 01/29/18 10:31 Last Admin: 01/26/18 12:07 Dose: 10 mg Oxycodone HCl (Oxycodone Immediate Release Tab) 10 mg PO Q6H PRN PRN Reason: Pain, severe (8-10) Last Admin: 01/26/18 16:31 Dose: 10 mg Quetiapine Fumarate (Seroquel) 12.5 mg PO HS PRN; Protocol PRN Reason: confusion/agitation/psychosis Last Admin: 01/25/18 21:51 Dose: 12.5 mg - Labs Labs: 01/26/18 06:30 01/26/18 06:30 PT 21.6 SECONDS (9.4-12.5) H 01/19/18 05:00 INR 1.85 01/19/18 05:00 APTT 60.7 Seconds (25.1-36.5) H 01/23/18 07:00 Attending/Attestation - Attestation I have personally seen and examined this patient.: Yes I have fully participated in the care of the patient.: Yes I have reviewed all pertinent clinical information, including history, physical exam and plan: Yes
[2018-01-26] MEDS: oxyCODONE 10 mg ER Tab (oxyCONTIN) PO SCH ×2 (12:07→21:11)
--- NOTE | 2018-01-26 16:06 | CP.PCM.PN ---
Subjective - Date & Time of Evaluation Date of Evaluation: 01/26/18 Time of Evaluation: 16:04 - Subjective Subjective: Mrs. Strauss was seen and examined at bedside today. She was having her lunch. She was previously complaining of headache, but said that it is better now. Objective - Vital Signs/Intake and Output Vital Signs (last 24 hours): Temp Pulse Resp BP Pulse Ox 99.5 F 86 18 149/87 96 01/26/18 12:00 01/26/18 12:00 01/26/18 12:00 01/26/18 12:00 01/26/18 06:00 Intake and Output: 01/26/18 01/26/18 06:59 18:59 Intake Total 2360 Output Total 3600 Balance -1240 - Medications Medications: Current Medications Acetaminophen (Tylenol 325mg Tab) 650 mg PO Q6H PRN PRN Reason: Pain, moderate (4-7) Last Admin: 01/25/18 21:51 Dose: 650 mg Aspirin (Aspirin Chewable) 81 mg PO DAILY [facility] Last Admin: 01/23/18 10:38 Dose: 81 mg Atorvastatin Calcium (Lipitor) 40 mg PO DIN [facility] Last Admin: 01/25/18 17:31 Dose: 40 mg Docusate Sodium (Colace) 100 mg PO BID PRN PRN Reason: Constipation Gabapentin (Neurontin) 300 mg PO TID [facility]; Protocol Last Admin: 01/26/18 14:36 Dose: 300 mg Hydralazine HCl (Apresoline) 10 mg IVP Q6 PRN PRN Reason: for SBP>160 Last Admin: 01/20/18 09:23 Dose: 10 mg Acyclovir 600 mg/ Sodium (Chloride) 100 mls @ 100 mls/hr IV Q8 [facility]; Protocol Last Admin: 01/26/18 14:39 Dose: 100 mls/hr Daptomycin 390 mg/ Sodium (Chloride) 100 mls @ 200 mls/hr IV Q24H [facility] Stop: 01/27/18 15:16 Last Admin: 01/25/18 15:41 Dose: 200 mls/hr Lisinopril (Zestril) 20 mg PO DAILY [facility] Last Admin: 01/26/18 10:53 Dose: 20 mg Lorazepam (Ativan) 1 mg IVP Q6 PRN; Protocol PRN Reason: Anxiety Last Admin: 01/24/18 22:39 Dose: 1 mg Metoprolol Tartrate (Lopressor) 25 mg PO BID [facility] Last Admin: 01/26/18 10:53 Dose: 25 mg Ondansetron HCl (Zofran Inj) 4 mg IVP Q6H PRN PRN Reason: Nausea/Vomiting Oxycodone HCl (Oxycontin Extended Release Tab) 10 mg PO Q12 [facility] Stop: 01/29/18 10:31 Last Admin: 01/26/18 12:07 Dose: 10 mg Oxycodone HCl (Oxycodone Immediate Release Tab) 10 mg PO Q6H PRN PRN Reason: Pain, severe (8-10) Quetiapine Fumarate (Seroquel) 12.5 mg PO HS PRN; Protocol PRN Reason: confusion/agitation/psychosis Last Admin: 01/25/18 21:51 Dose: 12.5 mg - Labs Labs: 01/26/18 06:30 01/26/18 06:30 PT 21.6 SECONDS (9.4-12.5) H 01/19/18 05:00 INR 1.85 01/19/18 05:00 APTT 60.7 Seconds (25.1-36.5) H 01/23/18 07:00 - Neurological Exam Neurological Exam: Alert, Awake, CN II-XII Intact, Oriented x3, Reflexes Normal Neuro motor strength exam: Left Upper Extremity: 4, Right Upper Extremity: 4, Left Lower Extremity: 4, Right Lower Extremity: 4 Assessment and Plan - Assessment and Plan (Free Text) Assessment: The patient had toxic-metabolic encephalopathy and complains of headache intermittently. No neck stiffness or meningeal signs noted. Plan: Will order MRI of the brain for further evaluation of headache, and previous enc ephalopathy.
[2018-01-26] MEDS ORDERED: Gadodiamide 287 MG/ML VIAL (15ML) IV ONE (17:22)
--- NOTE | 2018-01-26 17:47 | PN ---
DATE: 01/26/2018 The patient's breathing is much improved, but no chest pain noted. PHYSICAL EXAMINATION: VITAL SIGNS: Blood pressure is 132/79, heart rate is in the 90s. NECK: Negative JVD. LUNGS: Without rales. HEART: S1, S2. EXTREMITIES: Without edema. LABORATORIES: BUN and creatinine are unremarkable. Hemoglobin is 9.4. IMPRESSION: 1. Status post anteroseptal myocardial infarction. 2. Xop-GS-hsjhinlse myocardial infarction. 3. History of delirium 4. Ischemic cardiomyopathy. 5. Diabetes mellitus. 6. Hypertension. Given these findings, there are no immediate plans for cardiac catheterization. We will change her medications today. We will continue aspirin and beta-blockers. We will discontinue her topical nitrates. We will stop her Plavix and stop her hydralazine, instead we will start her on an BRIANNA inhibitor. Riki Alford MD
--- NOTE | 2018-01-26 17:50 | PN ---
DATE: 01/26/2018 The patient is seen early this morning. She continues to have headaches. Her fever has responded, no chills. She has overall improved, but the headaches persist as per the patient. PHYSICAL EXAMINATION: Temperature is 97, T-max was 100.5, 48 hours ago, blood pressure is 132/70, respiratory rate of 20, heart rate of 104. Examination of HEENT is unremarkable. Neck is supple. Lungs have decreased breath sounds. Heart exam, normal S1, S2. Abdominal examination is soft, nontender. LABORATORY EXAMINATION: Reveals the white count is down to 13,700, hemoglobin of 9, platelets of 287. The patient has a sed rate of 85 and BUN of 9, creatinine of 0.6. Troponins are elevated. Procalcitonin is 0.69 on 01/18/2018. Urinalysis is noted. Stool for occult is positive. Vanco trough of 12.5. Influenza is negative. Microbiology reveals the patient has Staph aureus. Blood cultures, it is pansensitive Staph aureus. Repeat cultures from 01/20/2018, growing one bottle at this time Staph aureus, same organism, pansensitive, repeat clump cultures. Third set of cultures from the 01/24/2018 now is no growth. The patient had an echo on 01/19/2018, which reveals no area of valvular stenosis and no regurgitation, mitral valve prolapse, no stenosis, no vegetations. The patient had a CAT scan of the head, which was negative. The patient is currently on daptomycin. ASSESSMENT/PLAN: This is a 62-year-old female seen earlier today in [facility], bed 1, who was admitted with sepsis with a sensitive Staph aureus bacteremia and [id number] myocardial infarction. The patient with metastatic breast cancer, questionable rash to an antibiotic and currently on daptomycin with concern about endocarditis on repeat cultures, one bottle still positive with the persistent headaches in a patient with hypertension and diabetes. Source of the staph bacteremia is not clear and sed rate of 85 and C-reactive protein of 27.5. Today is day #2 of 28 days of antibiotic therapy. We will speak to Neurology regarding the headaches and we will follow with you. Jamel Valencia MD
[2018-01-27] MEDS: oxyCODONE 10 mg Immediate Release Tab PO PRN ×3 (03:32→20:49)
[2018-01-27] MEDS: oxyCODONE 10 mg ER Tab (oxyCONTIN) PO SCH ×2 (09:39→22:30)
--- NOTE | 2018-01-27 10:13 | MRI ---
Date of service: 01/26/2018 PROCEDURE: MRI BRAIN WITH AND WITHOUT CONTRAST HISTORY: headache and sepsis COMPARISON: 12/13/2016 TECHNIQUE: Multiplanar, multisequence MR images of the brain were obtained with and without intravenous contrast enhancement. 15 cc of Omniscan FINDINGS: HEMORRHAGE: None DWI: No evidence of an acute or early subacute infarction. BRAIN PARENCHYMA: No mass,mass effect or edema. Chronic microvascular changes are seen in the periventricular white matter. ENHANCEMENT: No abnormal intracranial enhancement. VENTRICLES: Unremarkable. No hydrocephalus. CRANIUM: Unremarkable. ORBITS: Grossly unremarkable. PARANASAL SINUSES/MASTOIDS: Clear VASCULAR SYSTEM: Skull base flow voids intact. OTHER FINDINGS: None . IMPRESSION: No acute intracranial findings
[2018-01-27 11:40] LABS: BASO # 0.05 K/mm3 (0.0-2.0); BASO % 0.3 % (0.0-3.0); EOS % 5.9 % (1.5-5.0); GRAN # 10.71 (1.4-6.5); GRAN % 64.4 % (50.0-68.0); HEMOGLOBIN 9.4 g/dL (12.0-16.0); LYMPH # 3.7 (1.2-3.4); LYMPH % 22.1 % (22.0-35.0); MEAN CORPUSCULAR HEMOGLOBIN 27.7 pg (25.0-35.0); MEAN CORPUSCULAR HGB CONC 31.9 g/dl (31.0-37.0); MEAN PLATELET VOLUME 9.6 fl (7.0-11.0); MONO # 1.2 (0.1-0.6); MONO % 7.3 % (1.0-6.0); RBC 3.39 10^6/uL (3.5-6.1); RED CELL DISTRIBUTION WIDTH 17.7 % (11.5-14.5); WHITE BLOOD COUNT 16.6 10^3/ul (4.5-11.0)
[2018-01-27 11:51] LABS: ALB/GLOB RATIO 0.8 (1.1-1.8); ALBUMIN 3.2 g/dL (3.0-4.8); ALT/SGPT 35 U/L (7-56); AST/SGOT 51 U/L (14-36); BLOOD UREA NITROGEN 8 mg/dL (7-21); CALCIUM 8.7 mg/dL (8.4-10.5); GFR NON-AFRICAN AMERICAN > 60
--- NOTE | 2018-01-27 12:38 | CP.PCM.PN ---
<Shannan Avina - Last Filed: 01/27/18 12:32> Subjective - Date & Time of Evaluation Date of Evaluation: 01/27/18 Time of Evaluation: 12:32 - Subjective Subjective: Shannan Avina, PGY2, Neurology Progress Note for Dr. Hare: Patient seen and examined at bedside. No acute events overnight. Patient awake, alert, orientedx3. Currently, patient denies headaches, neck pain, dizziness, focal weakness, paresthesia, fever, chills. Patient states that she most had headache in the right frontal region, intermittently over the weekend. Patient states that it is likely related to stress. Objective - Vital Signs/Intake and Output Vital Signs (last 24 hours): Temp Pulse Resp BP Pulse Ox 99.6 F 107 H 18 119/62 99 01/27/18 06:00 01/27/18 10:57 01/27/18 06:00 01/27/18 10:57 01/27/18 06:00 Intake and Output: 01/27/18 01/27/18 06:59 18:59 Intake Total 2420 Output Total 1900 Balance 520 - Medications Medications: Current Medications Acetaminophen (Tylenol 325mg Tab) 650 mg PO Q6H PRN PRN Reason: Pain, moderate (4-7) Last Admin: 01/25/18 21:51 Dose: 650 mg Aspirin (Aspirin Chewable) 81 mg PO DAILY [facility] Last Admin: 01/23/18 10:38 Dose: 81 mg Atorvastatin Calcium (Lipitor) 40 mg PO DIN [facility] Last Admin: 01/26/18 18:10 Dose: 40 mg Docusate Sodium (Colace) 100 mg PO BID PRN PRN Reason: Constipation Gabapentin (Neurontin) 300 mg PO TID [facility]; Protocol Last Admin: 01/27/18 10:55 Dose: 300 mg Hydralazine HCl (Apresoline) 10 mg IVP Q6 PRN PRN Reason: for SBP>160 Last Admin: 01/20/18 09:23 Dose: 10 mg Acyclovir 600 mg/ Sodium (Chloride) 100 mls @ 100 mls/hr IV Q8 [facility]; Protocol Last Admin: 01/27/18 05:06 Dose: 100 mls/hr Daptomycin 390 mg/ Sodium (Chloride) 100 mls @ 200 mls/hr IV Q24H [facility] Stop: 01/27/18 15:16 Last Admin: 01/26/18 18:18 Dose: 200 mls/hr Lisinopril (Zestril) 20 mg PO DAILY [facility] Last Admin: 01/27/18 10:54 Dose: 20 mg Lorazepam (Ativan) 1 mg IVP Q6 PRN; Protocol PRN Reason: Anxiety Last Admin: 01/26/18 23:38 Dose: 1 mg Metoprolol Tartrate (Lopressor) 25 mg PO BID [facility] Last Admin: 01/27/18 10:57 Dose: 25 mg Ondansetron HCl (Zofran Inj) 4 mg IVP Q6H PRN PRN Reason: Nausea/Vomiting Oxycodone HCl (Oxycontin Extended Release Tab) 10 mg PO Q12 [facility] Stop: 01/29/18 10:31 Last Admin: 01/27/18 09:39 Dose: 10 mg Oxycodone HCl (Oxycodone Immediate Release Tab) 10 mg PO Q6H PRN PRN Reason: Pain, severe (8-10) Last Admin: 01/27/18 03:32 Dose: 10 mg Quetiapine Fumarate (Seroquel) 12.5 mg PO HS PRN; Protocol PRN Reason: confusion/agitation/psychosis Last Admin: 01/25/18 21:51 Dose: 12.5 mg - Labs Labs: 01/27/18 11:30 01/27/18 11:30 PT 21.6 SECONDS (9.4-12.5) H 01/19/18 05:00 INR 1.85 01/19/18 05:00 APTT 60.7 Seconds (25.1-36.5) H 01/23/18 07:00 - Additional Findings Additional findings: - Constitutional Appears: Non-toxic, Older Than Stated Age, Chronically Ill - Head Exam Head Exam: ATRAUMATIC, NORMOCEPHALIC - Eye Exam Eye Exam: EOMI, PERRL. absent: Conjunctival injection, Nystagmus, Scleral icterus Pupil Exam: NORMAL ACCOMODATION, PERRL. absent: Irregular, Miosis, Mydriatic, Unequal - ENT Exam ENT Exam: Mucous Membranes Moist - Neck Exam Neck exam: Positive for: Full Rom, Normal Inspection. Negative for: Lymphadenopathy, Meningismus, Tenderness, Thyromegaly Additional comments: negative Kernigs and Brudzinskis signs - Respiratory Exam Respiratory Exam: Clear to Auscultation Bilateral, NORMAL BREATHING PATTERN. absent: Accessory Muscle Use, Prolonged Expiratory Phase, Rales, Rhonchi, Wheezes, Respiratory Distress, Stridor - Cardiovascular Exam Cardiovascular Exam: RRR, +S1, +S2, Systolic Murmur - GI/Abdominal Exam GI & Abdominal Exam: Normal Bowel Sounds, Soft. absent: Distended, Organomegaly, Tenderness - Extremities Exam Extremities exam: Positive for: normal inspection. Negative for: calf tenderness, pedal edema - Back Exam Back exam: NORMAL INSPECTION - Neurological Exam Neurological exam: AAOx3, PERRL, Reflexes Normal, CN II-XII intact Additional comments: Strength 4/5 all extremities - Skin Skin Exam: Normal Color, Warm Assessment and Plan - Assessment and Plan (Free Text) Assessment: 62 F with PMH stage IV invasive ductal carcinoma/breast cancer with bone mets on chemo (last session 1.5 weeks ago at [facility]), MSSA bacteremia, HTN, CAD, metal screws in right hip and left ankle, and OA, admitted for severe sepsis, altered mental status, and STEMI. Neurology consulted for AMS: - likely toxic metabolic encephalopathy (severe sepsis) - Patient's mental status has improved. - Head CT 01/18 negative - Blood cultures 2/2 grew Staph aureus - 2D echo reviewed, EF 20%, no thrombus seen. Recommend PURVI. - MRI brain showed no acute changes; T2 hyperinstensity lesions seen in white matter. - neuro checks - passed swallow eval, c/w diet as per speech - palliative nurse Rosetta Matamoros spoke with patient, family. Patient states that she "wants everything done and wants to remain full code." - Thank you for your consult. Case seen and discussed with Dr Hare. <Robinson Hare - Last Filed: 01/31/18 23:01> Objective - Vital Signs/Intake and Output Vital Signs (last 24 hours): Temp Pulse Resp BP Pulse Ox 97.8 F 93 H 18 105/63 100 01/30/18 14:00 01/31/18 10:00 01/30/18 14:00 01/31/18 10:00 01/30/18 14:00 - Labs Labs: 01/31/18 11:45 01/31/18 06:30 PT 21.6 SECONDS (9.4-12.5) H 10/07/18 05:00 INR 1.85 01/19/18 05:00 APTT 60.7 Seconds (25.1-36.5) H 01/23/18 07:00 Attending/Attestation - Attestation I have personally seen and examined this patient.: Yes I have fully participated in the care of the patient.: Yes I have reviewed all pertinent clinical information, including history, physical exam and plan: Yes Notes (Text): 01/31/18 23:00 I agree with the assessment and plan. Likely toxic-metabolic encephalopathy. MRI does not show any acute findings. Continue medical management.
--- NOTE | 2018-01-27 15:55 | CP.PCM.PN ---
<Srinivasa Posadas - Last Filed: 01/27/18 17:30> Subjective - Date & Time of Evaluation Date of Evaluation: 01/27/18 Time of Evaluation: 12:00 - Subjective Subjective: INTERNAL MEDICINE PROGRESS NOTE FOR DR. LEE Posadas PGY-1 Pt seen and examined at bedside this am. Pt was awake, alert and oriented and conversing well. She was seen prior to leaving for echocardiogram. She had no acute complaints this am. She reports a non-bloody, soft consistency bowel movement last night. She denies fevers, chills, headache, dizziness, chest pain, palpitations, shortness of breath, nausea, vomiting, constipation, diarrhea, dysuria. Objective - Vital Signs/Intake and Output Vital Signs (last 24 hours): Temp Pulse Resp BP Pulse Ox 98.5 F 79 94 H 113/69 99 01/27/18 12:00 01/27/18 12:00 01/27/18 12:00 01/27/18 12:00 01/27/18 06:00 Intake and Output: 01/27/18 01/27/18 06:59 18:59 Intake Total 2420 Output Total 1900 Balance 520 - Medications Medications: Current Medications Acetaminophen (Tylenol 325mg Tab) 650 mg PO Q6H PRN PRN Reason: Pain, moderate (4-7) Last Admin: 01/25/18 21:51 Dose: 650 mg Aspirin (Aspirin Chewable) 81 mg PO DAILY [facility] Last Admin: 01/23/18 10:38 Dose: 81 mg Atorvastatin Calcium (Lipitor) 40 mg PO DIN [facility] Last Admin: 01/26/18 18:10 Dose: 40 mg Docusate Sodium (Colace) 100 mg PO BID PRN PRN Reason: Constipation Gabapentin (Neurontin) 300 mg PO TID [facility]; Protocol Last Admin: 01/27/18 14:14 Dose: 300 mg Hydralazine HCl (Apresoline) 10 mg IVP Q6 PRN PRN Reason: for SBP>160 Last Admin: 01/20/18 09:23 Dose: 10 mg Acyclovir 600 mg/ Sodium (Chloride) 100 mls @ 100 mls/hr IV Q8 [facility]; Protocol Last Admin: 01/27/18 14:13 Dose: 100 mls/hr Lisinopril (Zestril) 20 mg PO DAILY [facility] Last Admin: 01/27/18 10:54 Dose: 20 mg Lorazepam (Ativan) 1 mg IVP Q6 PRN; Protocol PRN Reason: Anxiety Last Admin: 01/26/18 23:38 Dose: 1 mg Metoprolol Tartrate (Lopressor) 25 mg PO BID [facility] Last Admin: 01/27/18 10:57 Dose: 25 mg Ondansetron HCl (Zofran Inj) 4 mg IVP Q6H PRN PRN Reason: Nausea/Vomiting Oxycodone HCl (Oxycontin Extended Release Tab) 10 mg PO Q12 [facility] Stop: 01/29/18 10:31 Last Admin: 01/27/18 09:39 Dose: 10 mg Oxycodone HCl (Oxycodone Immediate Release Tab) 10 mg PO Q6H PRN PRN Reason: Pain, severe (8-10) Last Admin: 01/27/18 14:13 Dose: 10 mg Quetiapine Fumarate (Seroquel) 12.5 mg PO HS PRN; Protocol PRN Reason: confusion/agitation/psychosis Last Admin: 01/25/18 21:51 Dose: 12.5 mg - Labs Labs: 01/27/18 11:30 01/27/18 11:30 PT 21.6 SECONDS (9.4-12.5) H 01/19/18 05:00 INR 1.85 01/19/18 05:00 APTT 60.7 Seconds (25.1-36.5) H 01/23/18 07:00 - Constitutional Appears: Well, Non-toxic, No Acute Distress - Head Exam Head Exam: NORMAL INSPECTION, NORMOCEPHALIC - Eye Exam Eye Exam: EOMI, Normal appearance - ENT Exam ENT Exam: Mucous Membranes Moist, Normal Exam - Neck Exam Neck Exam: Normal Inspection - Respiratory Exam Respiratory Exam: Clear to Ausculation Bilateral, NORMAL BREATHING PATTERN - Cardiovascular Exam Cardiovascular Exam: Tachycardia, +S1, +S2 - GI/Abdominal Exam GI & Abdominal Exam: Soft, Normal Bowel Sounds. absent: Tenderness - Extremities Exam Extremities Exam: Normal Inspection - Back Exam Back Exam: NORMAL INSPECTION - Neurological Exam Neurological Exam: Alert, Awake, Oriented x3 - Psychiatric Exam Psychiatric exam: Normal Affect, Normal Mood - Skin Skin Exam: Dry, Intact, Warm Assessment and Plan - Assessment and Plan (Free Text) Assessment: Patient is a 62-year-old female past medical history significant for age for invasive ductal carcinoma of the breast with metastases to the bone on chemother apy, MSSA bacteremia, hypertension, coronary artery disease, osteoarthritis, history of right hip fracture, and ankle fracture that presented to the emergency room with altered mental status. Patient is clinically stable w/o s/s of infection/ sepsis at this time. Pt underwent echo today for persistent bacteremia. Plan: Severe sepsis with lactic acidosis. Patient afebrile Leukocytosis increased to 13.7-->16.6 Continue acyclovir per ID recs. Blood cultures positive for staph aureus. Repeat Cx negative UCx negative ID following, recommendations appreciated. CT head per radiologist showed no acute intracranial findings. CT abdomen and pelvis per radiologist shows there is distention of the stomach with an air-fluid level, duodenum is also distended, remainder small bowel with normal caliber, there is mural thickening of the distal esophagus, possible esophagitis. MRI Head: Negative Echocardiogram: report pending Toxic metabolic encephalopathy Mental status improving. Most likely 2/2 Sepsis Pt evaluated by psychiatry. No acute psychiatric issues, signed off. Status post DE in a patient with history of coronary artery disease. Cardiology following, recommendations appreciated. 2-D echo per inspector watch assembly showed EF of 20%, mitral regurgitation mild to moderate, mild tricuspid regurgitation, trace to small pericardial effusion. Heparin drip held secondary to downtrending H&H per cardio Dr. Alford. Hold aspirin and Plavix. Continue Lipitor. Continue metoprolol and lisinopril. Cardiology consulted, Dr Alford * Treat her DE medically - continue beta-blockers Chronic Pain: Oxycontin 10 - ER Q12 PRN Oxycodone 10 - IR Q6 PRN Anemia. H&H downtrending. Stool for occult blood on 01/18/2018 positive. F/u repeat FOBT Discussed with inspector watch assembly Dr. Alford. Heparin drip, plavix stopped per Dr. Alford. Aspirin on hold GI consulted, Dr Briggs * Suggest conservative GI treatment - last seen by GI 01/19 Acute on chronic systolic CHF exacerbation. EF of 20%. Continue with metoprolol and lisinopril. Cardiology following, recommendations appreciated. Hypertension. Continue metoprolol and lisinopril. Continue hydralazine prn. Cardiology following, recommendations appreciated. Esophagitis on CT abd/pelvis. Recent diarrhea. GI following, recommendations appreciated. C-Diff negative Pt. asymptomatic GI prophylaxis w/ Protonix 40 PO QD History of metastatic breast cancer. Patient follows at [facility] for chemotherapy. GI and DVT prophylaxis. Protonix and SCD Patient is a full code <Fabiola Anne - Last Filed: 01/28/18 17:13> Objective - Vital Signs/Intake and Output Vital Signs (last 24 hours): Temp Pulse Resp BP Pulse Ox 97.9 F 100 H 19 108/60 96 01/28/18 11:48 01/28/18 11:48 01/28/18 11:48 01/28/18 11:48 01/28/18 06:00 Intake and Output: 01/28/18 01/28/18 06:59 18:59 Intake Total 240 Output Total 1200 Balance -960 - Medications Medications: Current Medications Acetaminophen (Tylenol 325mg Tab) 650 mg PO Q6H PRN PRN Reason: Pain, moderate (4-7) Last Admin: 01/25/18 21:51 Dose: 650 mg Aspirin (Aspirin Chewable) 81 mg PO DAILY [facility] Last Admin: 01/28/18 10:55 Dose: 81 mg Atorvastatin Calcium (Lipitor) 40 mg PO DIN [facility] Last Admin: 01/27/18 18:06 Dose: 40 mg Docusate Sodium (Colace) 100 mg PO BID PRN PRN Reason: Constipation Doxycycline Hyclate (Doryx) 100 mg PO Q12 [facility]; Protocol Stop: 02/06/18 10:01 Last Admin: 01/28/18 10:55 Dose: 100 mg Gabapentin (Neurontin) 300 mg PO TID [facility]; Protocol Last Admin: 01/28/18 14:18 Dose: 300 mg Hydralazine HCl (Apresoline) 10 mg IVP Q6 PRN PRN Reason: for SBP>160 Last Admin: 01/20/18 09:23 Dose: 10 mg Daptomycin 400 mg/ Sodium (Chloride) 100 mls @ 200 mls/hr IV Q24H [facility] Stop: 02/11/18 18:01 Cefepime HCl (Maxipime 1gm) 1 gm in 100 mls @ 25 mls/hr IVPB Q8 [facility]; Protocol Stop: 02/06/18 09:35 Last Admin: 01/28/18 14:18 Dose: 25 mls/hr Lisinopril (Zestril) 10 mg PO DAILY [facility] Metoprolol Tartrate (Lopressor) 50 mg PO BID [facility] Ondansetron HCl (Zofran Inj) 4 mg IVP Q6H PRN PRN Reason: Nausea/Vomiting Oxycodone HCl (Oxycontin Extended Release Tab) 10 mg PO Q12 [facility] Stop: 01/29/18 10:31 Last Admin: 01/28/18 10:55 Dose: 10 mg Oxycodone HCl (Oxycodone Immediate Release Tab) 10 mg PO Q6H PRN PRN Reason: Pain, severe (8-10) Last Admin: 01/28/18 14:17 Dose: 10 mg Pantoprazole Sodium (Protonix Inj) 40 mg IVP DAILY [facility] Last Admin: 01/28/18 10:54 Dose: 40 mg Quetiapine Fumarate (Seroquel) 12.5 mg PO HS PRN; Protocol PRN Reason: confusion/agitation/psychosis Last Admin: 01/25/18 21:51 Dose: 12.5 mg - Labs Labs: 01/28/18 06:30 01/28/18 06:30 PT 21.6 SECONDS (9.4-12.5) H 01/19/18 05:00 INR 1.85 01/19/18 05:00 APTT 60.7 Seconds (25.1-36.5) H 01/23/18 07:00 Attending/Attestation - Attestation I have personally seen and examined this patient.: Yes I have fully participated in the care of the patient.: Yes I have reviewed all pertinent clinical information, including history, physical exam and plan: Yes Notes (Text): 01/28/18 17:05 Attending note; Patient seen and examined with resident. patient is alert and awake. Sitting in the chair. Denies any fevers, chills. Tolerating diet well. Complaining of generalized weakness. Patient is a 62-year-old female past medical history significant for invasive ductal carcinoma of the breast with metastases to the bone on chemotherapy, MSSA bacteremia, hypertension, coronary artery disease, osteoarthritis, history of right hip fracture, and ankle fracture that presented to the emergency room with altered mental status. 1. Severe sepsis with lactic acidosis. resolving slowly. Currently on IV daptomycin and acyclovir. Initial blood culture showed staph aureus bacteremia. MSSA. Repeat blood cultureIs negative since 01/25/18. Urine culture is negative. Urine culture with no growth. Patient afebrile. Leukocytosis is improving. CT abdomen and pelvis shows there is distention of the stomach with an air-fluid level, duodenum is also distended, remainder small bowel with normal caliber, there is mural thickening of the distal esophagus, possible esophagitis. 2. Toxic metabolic encephalopathy. Secondary to severe sepsis. patient is alert and awake today. CT head showed no acute intracranial findings. neurology evaluation appreciated. Psychiatry evaluation appreciated. 3. Anemia. H&H stable. Stool for occult blood on 01/18/2018 positive. Currently no active bleeding. On aspirin. 4. non-ST elevation DE;; treated medically. Cardiology evaluation appreciated. echo showed EF of 20%, mitral regurgitation mild to moderate, mild tricuspid regurgitation, trace to small pericardial effusion. Continue Lipitor. Continue metoprolol and lisinopril. 5. Acute on chronic systolic CHF exacerbation. EF of 20%. currently off milrinone drip. 6. Esophagitis on CT abd/pelvis. Recent diarrhea. C-Diff negative. case discussed with GI in detail. Needs close outpatient follow-up. 7. History of metastatic breast cancer. Patient follows at [facility] for chemotherapy. we will try to get records. 8. GI and DVT prophylaxis. Protonix and SCDs palliative care evaluation appreciated. Case discussed in detail with the patient regarding current diagnosis and treatment plan.
--- NOTE | 2018-01-27 17:47 | CARD ---
APPROVED REPORT Date of service: 01/27/2018 EXAM: Two-dimensional and M-mode echocardiogram with Doppler and color Doppler. 2D DIMENSIONS Left Atrium (2D)4.8 (1.6-4.0cm)IVSd1.2 (0.7-1.1cm) LVDd4.8 (3.9-5.9cm)PWd1.3 (0.7-1.1cm) LVDs3.1 (2.5-4.0cm)FS (%) 35.5 % LVEF (%)65.0 (>50%) M-Mode DIMENSIONS Aortic Root3.00 (2.2-3.7cm)Aortic Cusp Exc.1.90 (1.5-2.0cm) Aortic Valve AoV Peak Tivcnjza527.0cm/sAoV VTI33.7cmAO Peak GR.17mmHg LVOT Peak Sgqzsyld433.0cm/sLVOT VTI22.30cmAO Mean GR.10mmHg Mitral Valve MV E Kvojzzwi44.7cm/sMV A Vaofslwa25.5cm/sE/A ratio0.7 TDI Lateral E' Peak V10.70cm/sMedial E' Peak V6.24cm/sE/Lateral E'5.8 E/Medial E'9.9 Pulmonary Valve PV Peak Vmvwlfed20.4cm/sPV Peak Grad.3mmHg Tricuspid Valve TR Peak [id number]/sRAP [id number] Peak Gr.20mmHg [id number] LEFT VENTRICLE The left ventricle is normal size. There is borderline concentric left ventricular hypertrophy. The left ventricular function is normal. The left ventricular ejection fraction is within the normal range. There is normal LV segmental wall motion. Transmitral Doppler flow pattern is Grade I-abnormal relaxation pattern. RIGHT VENTRICLE The right ventricle is normal size. There is normal right ventricular wall thickness. The right ventricular systolic function is normal. ATRIA The left atrium is moderately dilated. The right atrium is borderline dilated. AORTIC VALVE The aortic valve is not well visualized. No aortic regurgitation is present. There is no aortic valvular stenosis. MITRAL VALVE The mitral valve is mildly thickened. There is no mitral valve regurgitation noted. There is no mitral valve stenosis. TRICUSPID VALVE The tricuspid valve is normal in structure. There is trace tricuspid regurgitation. GREAT VESSELS The aortic root is normal in size. The IVC is normal in size and collapses >50% with inspiration. <Conclusion> The left ventricle is normal size. There is borderline concentric left ventricular hypertrophy. The left ventricular function is normal. The left ventricular ejection fraction is within the normal range. There is normal LV segmental wall motion. Transmitral Doppler flow pattern is Grade I-abnormal relaxation pattern. No vegitation seen
[2018-01-27] MEDS ORDERED: DAPTOmycin 500 mg Inj (Cubicin) IV SCH (19:15)
--- NOTE | 2018-01-27 22:16 | PN ---
DATE: 01/27/2018 SUBJECTIVE: The patient is in bed, in no acute distress, nontoxic. PHYSICAL EXAMINATION: VITAL SIGNS: Temperature is 98, blood pressure is 113/60, respiratory rate of 20. HEENT: Unremarkable. NECK: Supple. LUNGS: Decreased breath sounds. HEART: Normal S1, S2. ABDOMEN: Soft, nontender. LABORATORY DATA: Reveals the blood cultures of Staph aureus, which is pansensitive. Repeat cultures from 01/20/2018, are Staph aureus and pansensitive. Another *------* culture done here from 01/24/2018, no growth at 48 hours. Review of orders reveals the patient's daptomycin has been discontinued by pharmacy. We will restart daptomycin. The patient also had an MRI of the brain, which was reported to be negative. ASSESSMENT AND PLAN: This is a 62-year-old female with sepsis, sensitive Staphylococcus aureus bacteremia, [id number] myocardial infarction, metastatic breast cancer with a questionable rash to an antibiotic, currently on daptomycin, day #3 of 28 days. The patient's MRI is negative. The patient is on acyclovir on day #10. We will discontinue the acyclovir. The patient's mental status is much improved. Repeat cultures are negative. MRI is negative. Jamel Valencia MD
[2018-01-28] MEDS: oxyCODONE 10 mg Immediate Release Tab PO PRN ×3 (02:09→14:17)
--- NOTE | 2018-01-28 07:01 | CP.PCM.PN ---
<Srinivasa Posadas - Last Filed: 01/28/18 23:43> Subjective - Date & Time of Evaluation Date of Evaluation: 01/28/18 Time of Evaluation: 07:00 - Subjective Subjective: Pt seen and examined at bedside this am. Pt had 100.4 fever with associated chills overnight. This am pt reports no fevers, or chills. She complains of tender submandibular glands. She denies fevers, chills, headache, dizziness, chest pain, palpitations, shortness of breath, nausea, vomiting, diarrhea, dysuria. Objective - Vital Signs/Intake and Output Vital Signs (last 24 hours): Temp Pulse Resp BP Pulse Ox 97.9 F 85 19 134/81 96 01/28/18 06:00 01/28/18 06:00 01/28/18 06:00 01/28/18 06:00 01/28/18 06:00 Intake and Output: 01/28/18 01/28/18 06:59 18:59 Intake Total 240 Output Total 1200 Balance -960 - Medications Medications: Current Medications Acetaminophen (Tylenol 325mg Tab) 650 mg PO Q6H PRN PRN Reason: Pain, moderate (4-7) Last Admin: 01/25/18 21:51 Dose: 650 mg Aspirin (Aspirin Chewable) 81 mg PO DAILY [facility] Last Admin: 01/23/18 10:38 Dose: 81 mg Atorvastatin Calcium (Lipitor) 40 mg PO DIN [facility] Last Admin: 01/27/18 18:06 Dose: 40 mg Docusate Sodium (Colace) 100 mg PO BID PRN PRN Reason: Constipation Gabapentin (Neurontin) 300 mg PO TID [facility]; Protocol Last Admin: 01/27/18 18:07 Dose: 300 mg Hydralazine HCl (Apresoline) 10 mg IVP Q6 PRN PRN Reason: for SBP>160 Last Admin: 01/20/18 09:23 Dose: 10 mg Daptomycin 400 mg/ Sodium (Chloride) 100 mls @ 200 mls/hr IV Q24H [facility] Stop: 02/11/18 18:01 Lisinopril (Zestril) 20 mg PO DAILY [facility] Last Admin: 01/27/18 10:54 Dose: 20 mg Lorazepam (Ativan) 1 mg IVP Q6 PRN; Protocol PRN Reason: Anxiety Last Admin: 01/28/18 03:02 Dose: 1 mg Metoprolol Tartrate (Lopressor) 25 mg PO BID [facility] Last Admin: 01/27/18 18:07 Dose: 25 mg Ondansetron HCl (Zofran Inj) 4 mg IVP Q6H PRN PRN Reason: Nausea/Vomiting Oxycodone HCl (Oxycontin Extended Release Tab) 10 mg PO Q12 [facility] Stop: 01/29/18 10:31 Last Admin: 01/27/18 22:30 Dose: Not Given Oxycodone HCl (Oxycodone Immediate Release Tab) 10 mg PO Q6H PRN PRN Reason: Pain, severe (8-10) Last Admin: 01/28/18 02:09 Dose: 10 mg Pantoprazole Sodium (Protonix Inj) 40 mg IVP DAILY [facility] Quetiapine Fumarate (Seroquel) 12.5 mg PO HS PRN; Protocol PRN Reason: confusion/agitation/psychosis Last Admin: 01/25/18 21:51 Dose: 12.5 mg - Labs Labs: 01/27/18 11:30 01/27/18 11:30 PT 21.6 SECONDS (9.4-12.5) H 01/19/18 05:00 INR 1.85 01/19/18 05:00 APTT 60.7 Seconds (25.1-36.5) H 01/23/18 07:00 - Constitutional Appears: Well, Non-toxic, No Acute Distress - Head Exam Head Exam: NORMAL INSPECTION - Eye Exam Eye Exam: EOMI, Normal appearance - ENT Exam ENT Exam: Mucous Membranes Moist, Normal Exam - Neck Exam Neck Exam: Normal Inspection - Respiratory Exam Respiratory Exam: Clear to Ausculation Bilateral, NORMAL BREATHING PATTERN - Cardiovascular Exam Cardiovascular Exam: REGULAR RHYTHM, +S1, +S2 - GI/Abdominal Exam GI & Abdominal Exam: Soft. absent: Tenderness - Extremities Exam Extremities Exam: absent: Calf Tenderness - Back Exam Back Exam: absent: NORMAL INSPECTION - Neurological Exam Neurological Exam: Alert, Awake, Oriented x3 - Psychiatric Exam Psychiatric exam: Normal Affect, Normal Mood - Skin Skin Exam: Dry, Intact, Warm Assessment and Plan - Assessment and Plan (Free Text) Assessment: Patient is a 62-year-old female past medical history significant for age for invasive ductal carcinoma of the breast with metastases to the bone on chemotherapy, MSSA bacteremia, hypertension, coronary artery disease, osteoarthritis, history of right hip fracture, and ankle fracture that presented to the emergency room with altered mental status. Patient is clinically stable w/o s/s of infection/ sepsis at this time. Repeat echo showed improvement from previous echo. Pt had fever/chills overnight, ID workup was done. Plan: Severe sepsis with lactic acidosis. Patient afebrile this am Pt had 100.4 fever overnight. MRI lumbar spine to r/o abscess F/u repeat chest xray f/u repeat urine/blood/sputum cultures Leukocytosis increased Continue doxy & cefepime per ID recs Continue daptomycin per ID recs. ID following, recommendations appreciated. CT head per radiologist showed no acute intracranial findings. CT abdomen and pelvis per radiologist shows there is distention of the stomach with an air-fluid level, duodenum is also distended, remainder small bowel with normal caliber, there is mural thickening of the distal esophagus, possible esophagitis. MRI Head: Negative Echocardiogram: report pending Toxic metabolic encephalopathy Mental status improving. Most likely 2/2 Sepsis Pt evaluated by psychiatry. No acute psychiatric issues, signed off. Status post CA in a patient with history of coronary artery disease. Cardiology following, recommendations appreciated. 2-D echo per fisheries management biologist showed EF of 20%, mitral regurgitation mild to moderate, mild tricuspid regurgitation. Repeat Echo showed improved EF Heparin drip held secondary to downtrending H&H per cardio Dr. Alford. Hold aspirin and Plavix. Continue Lipitor. Continue metoprolol and lisinopril. Cardiology consulted, Dr Alford * Treat her CA medically - continue beta-blockers Chronic Pain: Oxycontin 10 - ER Q12 PRN Oxycodone 10 - IR Q6 PRN Anemia. H&H downtrending. Stool for occult blood on 01/18/2018 positive. F/u repeat FOBT Discussed with fisheries management biologist Dr. Alford. Heparin drip, plavix stopped per Dr. Alford. Aspirin on hold GI consulted, Dr Briggs * Suggest conservative GI treatment - last seen by GI 01/19 Acute on chronic systolic CHF exacerbation. EF of 20%. Repeat Echo: LVEF 65% Continue with metoprolol and lisinopril. Cardiology following, recommendations appreciated. Hypertension. Continue metoprolol and lisinopril. Continue hydralazine prn. Cardiology following, recommendations appreciated. Esophagitis on CT abd/pelvis. Recent diarrhea. GI following, recommendations appreciated. C-Diff negative Pt. asymptomatic GI prophylaxis w/ Protonix 40 PO QD History of metastatic breast cancer. Patient follows at [facility] for chemotherapy. GI and DVT prophylaxis. Protonix and SCD Patient is a full code <Fabiola Anne - Last Filed: 01/31/18 14:34> Objective - Vital Signs/Intake and Output Vital Signs (last 24 hours): Temp Pulse Resp BP Pulse Ox 97.8 F 93 H 18 105/63 100 01/30/18 14:00 01/31/18 10:00 01/30/18 14:00 01/31/18 10:00 01/30/18 14:00 Intake and Output: 01/31/18 01/31/18 06:59 18:59 Intake Total 620 Balance 620 - Medications Medications: Current Medications Acetaminophen (Tylenol 325mg Tab) 650 mg PO Q6H PRN PRN Reason: Pain, moderate (4-7) Last Admin: 01/29/18 21:17 Dose: 650 mg Alprazolam (Xanax) 0.5 mg PO ONCE PRN; Protocol PRN Reason: Anxiety Aspirin (Aspirin Chewable) 81 mg PO DAILY [facility] Last Admin: 01/31/18 09:57 Dose: 81 mg Atorvastatin Calcium (Lipitor) 40 mg PO DIN [facility] Last Admin: 01/30/18 17:15 Dose: 40 mg Docusate Sodium (Colace) 100 mg PO BID PRN PRN Reason: Constipation Gabapentin (Neurontin) 300 mg PO TID [facility]; Protocol Last Admin: 01/31/18 09:56 Dose: 300 mg Hydralazine HCl (Apresoline) 10 mg IVP Q6 PRN PRN Reason: for SBP>160 Last Admin: 01/20/18 09:23 Dose: 10 mg Daptomycin 400 mg/ Sodium (Chloride) 100 mls @ 200 mls/hr IV Q24H [facility] Stop: 02/11/18 18:01 Last Admin: 01/30/18 19:27 Dose: Not Given Lisinopril (Zestril) 10 mg PO DAILY [facility] Last Admin: 01/31/18 09:59 Dose: 10 mg Lorazepam (Ativan) 1 mg IVP ONCE PRN; Protocol PRN Reason: Anxiety Metoprolol Tartrate (Lopressor) 50 mg PO BID [facility] Last Admin: 01/31/18 10:00 Dose: 50 mg Ondansetron HCl (Zofran Inj) 4 mg IVP Q6H PRN PRN Reason: Nausea/Vomiting Oxycodone HCl (Oxycodone Immediate Release Tab) 30 mg PO Q6H PRN PRN Reason: Pain, severe (8-10) Last Admin: 01/31/18 11:18 Dose: 30 mg Pantoprazole Sodium (Protonix Ec Tab) 40 mg PO ACB [facility] Last Admin: 01/31/18 09:57 Dose: 40 mg Quetiapine Fumarate (Seroquel) 12.5 mg PO HS PRN; Protocol PRN Reason: confusion/agitation/psychosis Last Admin: 01/30/18 21:13 Dose: 12.5 mg Silver Sulfadiazine (Silvadene 1% 25 Gm) 0 gm TP DAILY [facility] - Labs Labs: 01/31/18 11:45 01/31/18 06:30 PT 21.6 SECONDS (9.4-12.5) H 01/19/18 05:00 INR 1.85 01/19/18 05:00 APTT 60.7 Seconds (25.1-36.5) H 01/23/18 07:00 Attending/Attestation - Attestation I have personally seen and examined this patient.: Yes I have fully participated in the care of the patient.: Yes I have reviewed all pertinent clinical information, including history, physical exam and plan: Yes Notes (Text): 01/31/18 14:31 Attending note; Patient seen and examined with resident. patient is alert and awake. Had low-grade temperature last night. Denies any fevers, chills. Tolerating diet well. Patient is a 62-year-old female past medical history significant for invasive ductal carcinoma of the breast with metastases to the bone on chemotherapy, MSSA bacteremia, hypertension, coronary artery disease, osteoarthritis, history of right hip fracture, and ankle fracture that presented to the emergency room with altered mental status. 1. Severe sepsis with lactic acidosis. resolving slowly. Currently on IV daptomycin. Initial blood culture showed staph aureus bacteremia. MSSA. Repeat blood culture Is negative since 01/25/18. Urine culture is negative. Urine culture with no growth. still with leukocytosis. Follow-up fever trend. CT abdomen and pelvis shows there is distention of the stomach with an air- fluid level, duodenum is also distended, remainder small bowel with normal caliber, there is mural thickening of the distal esophagus, possible esophagitis. 2. Toxic metabolic encephalopathy. Secondary to severe sepsis. patient is alert and awake today. CT head showed no acute intracranial findings. neurology evaluation appreciated. Psychiatry evaluation appreciated. 3. Anemia. H&H stable. Stool for occult blood on 01/18/2018 positive. Currently no active bleeding. On aspirin. 4. non-ST elevation CA;; treated medically. Cardiology evaluation appreciated. echo showed EF of 20%, mitral regurgitation mild to moderate, mild tricuspid regurgitation, trace to small pericardial effusion. Continue Lipitor. Continue metoprolol and lisinopril. 5. Acute on chronic systolic CHF exacerbation. EF of 20%. currently off milrinone drip. 6. Esophagitis on CT abd/pelvis. Recent diarrhea. C-Diff negative. case discussed with GI in detail. Needs close outpatient follow-up. 7. History of metastatic breast cancer. Patient follows at [facility] for chemotherapy. we will try to get records. 8. GI and DVT prophylaxis. Protonix and SCDs palliative care evaluation appreciated. Case discussed in detail with the patient regarding current diagnosis and treatment plan. 01/31/18 14:33
[2018-01-28 07:16] LABS: BASO # 0.06 K/mm3 (0.0-2.0); BASO % 0.4 % (0.0-3.0); EOS # 0.9 (0.0-0.7); EOS % 5.7 % (1.5-5.0); GRAN # 7.98 (1.4-6.5); HEMOGLOBIN 8.9 g/dL (12.0-16.0); LYMPH # 4.9 (1.2-3.4); MEAN CELL VOLUME 87.4 fl (80.0-105.0); MEAN CORPUSCULAR HEMOGLOBIN 27.4 pg (25.0-35.0); MEAN CORPUSCULAR HGB CONC 31.3 g/dl (31.0-37.0); MEAN PLATELET VOLUME 9.7 fl (7.0-11.0); MONO # 1.5 (0.1-0.6); MONO % 9.9 % (1.0-6.0); RBC 3.25 10^6/uL (3.5-6.1); RED CELL DISTRIBUTION WIDTH 17.6 % (11.5-14.5); WHITE BLOOD COUNT 15.3 10^3/ul (4.5-11.0)
[2018-01-28 07:44] LABS: ALB/GLOB RATIO 0.8 (1.1-1.8); ALBUMIN 2.8 g/dL (3.0-4.8); ALT/SGPT 44 U/L (7-56); AST/SGOT 59 U/L (14-36); BLOOD UREA NITROGEN 11 mg/dL (7-21); CALCIUM 8.5 mg/dL (8.4-10.5); GFR NON-AFRICAN AMERICAN > 60
--- NOTE | 2018-01-28 10:34 | PN ---
DATE: 01/28/2018 SUBJECTIVE: The patient is in bed, in no acute distress, nontoxic. No fevers. She did have a fever last night and she is awake and alert. Mild shortness of breath. No chest pain. PHYSICAL EXAMINATION: VITAL SIGNS: On exam, temperature is 100.4, blood pressure is 130/80, respiratory rate of 20, heart rate of 92. HEENT: Examination of HEENT is unremarkable. NECK: Supple. LUNGS: Have decreased breath sounds. HEART: Normal S1, S2. ABDOMEN: Soft. LABORATORY DATA: Laboratory examination reveals the white count is noted to be at the 15,000 and the sed rate is 85. Chemistries are noted. Microbiology reveals the repeat cultures from 11/25/2017 are no growth. Blood cultures from 01/20/2018 was positive. ASSESSMENT AND PLAN: A 62-year-old female who was seen earlier this morning, had another temperature last night, was admitted with sepsis, sensitive Staphylococcus aureus bacteremia, [id number] myocardial infarction, metastatic breast cancer and had a questionable rash beta-lactam. Currently, on daptomycin, day #4 of 28. MRI of the head was negative. Acyclovir was discontinued. Now, had a new fever. We will repeat blood cultures, urine cultures, sputum cultures, procalcitonin chest x-ray. We will add cefepime and doxycycline for empiric healthcare-associated pneumonia therapy. Pending procalcitonin and pancultures and chest x-ray. Case discussed with primary medical doctor. We will follow with you. Jamel Valencia MD
[2018-01-28] MEDS: Cefepime 1gm in NS 100ml 1 GM/100 ML BAG IVPB SCH ×3 (10:54→22:31)
[2018-01-28] MEDS: oxyCODONE 10 mg ER Tab (oxyCONTIN) PO SCH ×2 (10:55→21:52)
--- NOTE | 2018-01-28 15:03 | PN ---
DATE: 01/28/2018 CARDIOLOGY FOLLOWUP SUBJECTIVE: The patient remains confused. PHYSICAL EXAMINATION: VITAL SIGNS: Blood pressure 108/60. The patient is afebrile. Heart rate is sinus tachycardia at 100. NECK: Negative JVD. LUNGS: Without rales. HEART: Reveals S1 and S2. EXTREMITIES: Without edema. LABORATORY DATA: White count is 15,000, hemoglobin is 8.9. Chemistries: BUN and creatinine are unremarkable. IMPRESSION: 1. [id number] myocardial infarction, treated medically. 2. Coronary artery disease. 3. Sinus tachycardia. 4. Diabetes mellitus. 5. Hypertension. 6. Confusion. PLAN: Given these findings, we will be treating her non-STEMI medically. Her LV function on echocardiogram is unremarkable. Echocardiogram reveals no vegetations. Given these findings, we will continue her on her aspirin and beta blockers. We will decreased her lisinopril and increase her beta blockers. I will discontinue telemetry today. Riki Alford MD
[2018-01-29] MEDS: Cefepime 1gm in NS 100ml 1 GM/100 ML BAG IVPB SCH ×3 (07:24→21:08)
[2018-01-29 07:50] LABS: BASO # 0.09 K/mm3 (0.0-2.0); BASO % 0.6 % (0.0-3.0); EOS # 0.7 (0.0-0.7); EOS % 4.3 % (1.5-5.0); GRAN # 9.12 (1.4-6.5); GRAN % 56.2 % (50.0-68.0); HEMOGLOBIN 8.7 g/dL (12.0-16.0); LYMPH # 4.7 (1.2-3.4); MEAN CELL VOLUME 87.2 fl (80.0-105.0); MEAN CORPUSCULAR HEMOGLOBIN 27.1 pg (25.0-35.0); MEAN CORPUSCULAR HGB CONC 31.1 g/dl (31.0-37.0); MEAN PLATELET VOLUME 9.4 fl (7.0-11.0); MONO # 1.6 (0.1-0.6); MONO % 9.9 % (1.0-6.0); RBC 3.21 10^6/uL (3.5-6.1); RED CELL DISTRIBUTION WIDTH 17.3 % (11.5-14.5); WHITE BLOOD COUNT 16.2 10^3/ul (4.5-11.0)
[2018-01-29 08:10] LABS: ALB/GLOB RATIO 0.8 (1.1-1.8); ALBUMIN 3.1 g/dL (3.0-4.8); ALT/SGPT 44 U/L (7-56); AST/SGOT 59 U/L (14-36); BLOOD UREA NITROGEN 11 mg/dL (7-21); GFR NON-AFRICAN AMERICAN > 60
[2018-01-29] MEDS: oxyCODONE 10 mg ER Tab (oxyCONTIN) PO SCH (09:05)
--- NOTE | 2018-01-29 13:05 | RAD ---
Date of service: 01/29/2018 HISTORY: FEVER COMPARISON: 01/21/2018 TECHNIQUE: Chest PA and lateral FINDINGS: LUNGS: Resolution of previously identified pulmonary vascular congestion. PLEURA: No significant pleural effusion identified. No pneumothorax apparent. CARDIOVASCULAR: No radiographic findings to suggest acute or significant cardiovascular disease. OSSEOUS STRUCTURES: No significant abnormalities. VISUALIZED UPPER ABDOMEN: Normal. OTHER FINDINGS: None. IMPRESSION: No active disease. Resolved CHF/pulmonary edema.
--- NOTE | 2018-01-29 14:35 | CP.PCM.PN ---
Subjective - Date & Time of Evaluation Date of Evaluation: 01/29/18 Time of Evaluation: 14:00 - Subjective Subjective: Alert, oriented. Complains of fatigue Objective - Vital Signs/Intake and Output Vital Signs (last 24 hours): Temp Pulse Resp BP Pulse Ox 97.8 F 94 H 20 133/79 97 01/29/18 06:00 01/29/18 06:00 01/29/18 06:00 01/29/18 06:00 01/29/18 06:00 Intake and Output: 01/29/18 01/29/18 06:59 18:59 Intake Total 360 Balance 360 - Medications Medications: Current Medications Acetaminophen (Tylenol 325mg Tab) 650 mg PO Q6H PRN PRN Reason: Pain, moderate (4-7) Last Admin: 01/25/18 21:51 Dose: 650 mg Alprazolam (Xanax) 0.5 mg PO ONCE PRN; Protocol PRN Reason: Anxiety Aspirin (Aspirin Chewable) 81 mg PO DAILY [facility] Last Admin: 01/29/18 09:05 Dose: 81 mg Atorvastatin Calcium (Lipitor) 40 mg PO DIN [facility] Last Admin: 01/28/18 18:02 Dose: 40 mg Docusate Sodium (Colace) 100 mg PO BID PRN PRN Reason: Constipation Doxycycline Hyclate (Doryx) 100 mg PO Q12 [facility]; Protocol Stop: 02/06/18 10:01 Last Admin: 01/29/18 09:05 Dose: 100 mg Gabapentin (Neurontin) 300 mg PO TID [facility]; Protocol Last Admin: 01/29/18 09:05 Dose: 300 mg Hydralazine HCl (Apresoline) 10 mg IVP Q6 PRN PRN Reason: for SBP>160 Last Admin: 01/20/18 09:23 Dose: 10 mg Daptomycin 400 mg/ Sodium (Chloride) 100 mls @ 200 mls/hr IV Q24H [facility] Stop: 02/11/18 18:01 Last Admin: 01/28/18 18:57 Dose: 200 mls/hr Cefepime HCl (Maxipime 1gm) 1 gm in 100 mls @ 25 mls/hr IVPB Q8 [facility]; Protocol Stop: 02/06/18 09:35 Last Admin: 01/29/18 07:24 Dose: 25 mls/hr Lisinopril (Zestril) 10 mg PO DAILY [facility] Last Admin: 01/29/18 09:05 Dose: 10 mg Metoprolol Tartrate (Lopressor) 50 mg PO BID [facility] Last Admin: 01/29/18 09:05 Dose: 50 mg Ondansetron HCl (Zofran Inj) 4 mg IVP Q6H PRN PRN Reason: Nausea/Vomiting Oxycodone HCl (Oxycodone Immediate Release Tab) 10 mg PO Q6H PRN PRN Reason: Pain, severe (8-10) Last Admin: 01/28/18 14:17 Dose: 10 mg Pantoprazole Sodium (Protonix Inj) 40 mg IVP DAILY [facility] Last Admin: 01/29/18 09:05 Dose: 40 mg Quetiapine Fumarate (Seroquel) 12.5 mg PO HS PRN; Protocol PRN Reason: confusion/agitation/psychosis Last Admin: 01/28/18 21:59 Dose: 12.5 mg - Labs Labs: 01/29/18 07:30 01/29/18 07:30 PT 21.6 SECONDS (9.4-12.5) H 01/19/18 05:00 INR 1.85 01/19/18 05:00 APTT 60.7 Seconds (25.1-36.5) H 01/23/18 07:00 - Constitutional Appears: No Acute Distress, Chronically Ill - Head Exam Head Exam: NORMOCEPHALIC - Eye Exam Eye Exam: Normal appearance, PERRL - ENT Exam ENT Exam: Normal Exam - Neck Exam Neck Exam: Normal Inspection - Respiratory Exam Respiratory Exam: Clear to Ausculation Bilateral, NORMAL BREATHING PATTERN - Cardiovascular Exam Cardiovascular Exam: REGULAR RHYTHM, +S1, +S2 - GI/Abdominal Exam GI & Abdominal Exam: Soft, Normal Bowel Sounds - Extremities Exam Extremities Exam: Full ROM, Normal Capillary Refill - Neurological Exam Neurological Exam: Alert, Oriented x3 - Skin Skin Exam: Dry, Warm Assessment and Plan - Assessment and Plan (Free Text) Assessment: 62 year old female with history of invasive ductal breast cancer/bone metastasis who was admitted with sepsis, bacteremia, CAD, AMS. The patient is alert and oriented. Advance care planning revisited. The patient does not want to appoint anyone as her health care surrogate. She also does not want to discuss resuscitation wishes.She allowed me to explain the benefits and burdens of resuscitation but did nor want to discuss any further. [facility] [place] once released form hospital. State she does not want to go to rehab. Explained that she was to weak and deconditioned to return home. Encouraged to try rehab for OT/PT. Time spent in goals of care discussion, 30 minutes Plan: Goals of care and advance care planning: Patient not willing to discuss.Will sign off for now
[2018-01-29] MEDS: oxyCODONE 10 mg Immediate Release Tab PO PRN ×2 (17:02→23:03)
--- NOTE | 2018-01-29 17:40 | CP.PCM.PN ---
<Srinivasa Posadas - Last Filed: 01/29/18 17:33> Subjective - Date & Time of Evaluation Date of Evaluation: 01/29/18 Time of Evaluation: 17:33 - Subjective Subjective: INTERNAL MEDICINE PROGRESS NOTE Srinivasa Posadas PGY-1 Pt seen and examined at bedside this am. Alert and oriented. Pt had went down for MRI, however was agitated and was not able to complete the test. 12 point ROS is negative. Objective - Vital Signs/Intake and Output Vital Signs (last 24 hours): Temp Pulse Resp BP Pulse Ox 99.6 F 84 19 106/61 98 01/29/18 14:00 01/29/18 17:02 01/29/18 14:00 01/29/18 17:02 01/29/18 14:00 Intake and Output: 01/29/18 01/29/18 06:59 18:59 Intake Total 360 Balance 360 - Medications Medications: Current Medications Acetaminophen (Tylenol 325mg Tab) 650 mg PO Q6H PRN PRN Reason: Pain, moderate (4-7) Last Admin: 01/29/18 15:12 Dose: 650 mg Alprazolam (Xanax) 0.5 mg PO ONCE PRN; Protocol PRN Reason: Anxiety Aspirin (Aspirin Chewable) 81 mg PO DAILY [facility] Last Admin: 01/29/18 09:05 Dose: 81 mg Atorvastatin Calcium (Lipitor) 40 mg PO DIN [facility] Last Admin: 01/29/18 17:03 Dose: 40 mg Docusate Sodium (Colace) 100 mg PO BID PRN PRN Reason: Constipation Doxycycline Hyclate (Doryx) 100 mg PO Q12 OLGA; Protocol Stop: 02/06/18 10:01 Last Admin: 01/29/18 09:05 Dose: 100 mg Gabapentin (Neurontin) 300 mg PO TID OLGA; Protocol Last Admin: 01/29/18 17:03 Dose: 300 mg Hydralazine HCl (Apresoline) 10 mg IVP Q6 PRN PRN Reason: for SBP>160 Last Admin: 01/20/18 09:23 Dose: 10 mg Daptomycin 400 mg/ Sodium (Chloride) 100 mls @ 200 mls/hr IV Q24H OLGA Stop: 02/11/18 18:01 Last Admin: 01/28/18 18:57 Dose: 200 mls/hr Cefepime HCl (Maxipime 1gm) 1 gm in 100 mls @ 25 mls/hr IVPB Q8 [facility]; Protocol Stop: 02/06/18 09:35 Last Admin: 01/29/18 13:00 Dose: 25 mls/hr Lisinopril (Zestril) 10 mg PO DAILY [facility] Last Admin: 01/29/18 09:05 Dose: 10 mg Metoprolol Tartrate (Lopressor) 50 mg PO BID [facility] Last Admin: 01/29/18 17:02 Dose: 50 mg Ondansetron HCl (Zofran Inj) 4 mg IVP Q6H PRN PRN Reason: Nausea/Vomiting Oxycodone HCl (Oxycodone Immediate Release Tab) 10 mg PO Q6H PRN PRN Reason: Pain, severe (8-10) Last Admin: 01/29/18 17:02 Dose: 10 mg Pantoprazole Sodium (Protonix Inj) 40 mg IVP DAILY [facility] Last Admin: 01/29/18 09:05 Dose: 40 mg Quetiapine Fumarate (Seroquel) 12.5 mg PO HS PRN; Protocol PRN Reason: confusion/agitation/psychosis Last Admin: 01/28/18 21:59 Dose: 12.5 mg - Labs Labs: 01/29/18 07:30 01/29/18 07:30 PT 21.6 SECONDS (9.4-12.5) H 01/19/18 05:00 INR 1.85 01/19/18 05:00 APTT 60.7 Seconds (25.1-36.5) H 01/23/18 07:00 - Constitutional Appears: Well, Non-toxic, No Acute Distress - Head Exam Head Exam: NORMAL INSPECTION, NORMOCEPHALIC - Eye Exam Eye Exam: EOMI, Normal appearance - ENT Exam ENT Exam: Mucous Membranes Moist, Normal Exam - Neck Exam Neck Exam: Normal Inspection. absent: Lymphadenopathy - Respiratory Exam Respiratory Exam: Clear to Ausculation Bilateral, NORMAL BREATHING PATTERN - Cardiovascular Exam Cardiovascular Exam: REGULAR RHYTHM, +S1, +S2 - GI/Abdominal Exam GI & Abdominal Exam: Soft. absent: Tenderness - Extremities Exam Extremities Exam: Normal Inspection. absent: Calf Tenderness - Back Exam Back Exam: NORMAL INSPECTION - Neurological Exam Neurological Exam: Alert, Awake, Oriented x3 - Psychiatric Exam Psychiatric exam: Normal Affect, Normal Mood - Skin Skin Exam: Dry, Intact, Warm Assessment and Plan - Assessment and Plan (Free Text) Assessment: Pt is a 62-year-old female past medical history significant for age for invasive ductal carcinoma of the breast with metastases to the bone on chemotherapy, MSSA bacteremia, hypertension, coronary artery disease, osteoarthritis, history of right hip fracture, and ankle fracture that presented to the emergency room with altered mental status. Patient is clinically stable w/o s/s of infection/ sepsis at this time. Repeat echo showed improvement from previous echo. Pt had f ever/chills overnight, ID workup was done. Plan: Severe sepsis with lactic acidosis. Patient afebrile this am MRI lumbar spine to r/o abscess- pending f/u repeat urine/blood/sputum cultures Leukocytosis increased Continue doxy & cefepime per ID recs Continue daptomycin per ID recs. ID following, recommendations appreciated. Chest xray: negative CT head per radiologist showed no acute intracranial findings. CT abdomen and pelvis per radiologist shows there is distention of the stomach with an air-fluid level, duodenum is also distended, remainder small bowel with normal caliber, there is mural thickening of the distal esophagus, possible esophagitis. MRI Head: Negative Echocardiogram: report pending Toxic metabolic encephalopathy Mental status improving. Most likely 2/2 Sepsis Pt evaluated by psychiatry. No acute psychiatric issues, signed off. Status post LA in a patient with history of coronary artery disease. Cardiology following, recommendations appreciated. 2-D echo per grounds maintenance worker showed EF of 20%, mitral regurgitation mild to moderate, mild tricuspid regurgitation. Repeat Echo showed improved EF Continue aspirin Hold plavix Continue Lipitor. Continue metoprolol and lisinopril. Cardiology consulted, Dr Alford Treat her LA medically - continue beta-blockers Chronic Pain: Oxycontin 10 - ER Q12 PRN Oxycodone 10 - IR Q6 PRN Anemia. H&H downtrending. Stool for occult blood on 01/18/2018 positive. F/u repeat FOBT Discussed with grounds maintenance worker Dr. Alford. Heparin drip, plavix stopped per Dr. Alford. GI consulted, Dr Briggs Suggest conservative GI treatment - last seen by GI 01/19 Acute on chronic systolic CHF exacerbation. EF of 20%. Repeat Echo: LVEF 65% Continue with metoprolol and lisinopril. Cardiology following, recommendations appreciated. Hypertension. Continue metoprolol and lisinopril. Continue hydralazine prn. Cardiology following, recommendations appreciated. Esophagitis on CT abd/pelvis. Recent diarrhea. GI following, recommendations appreciated. C-Diff negative Pt. asymptomatic GI prophylaxis w/ Protonix 40 PO QD History of metastatic breast cancer. Patient follows at [facility] for chemotherapy. GI and DVT prophylaxis. Protonix and SCD Patient is a full code <Fabiola Anne - Last Filed: 01/31/18 14:37> Objective - Vital Signs/Intake and Output Vital Signs (last 24 hours): Temp Pulse Resp BP Pulse Ox 97.8 F 93 H 18 105/63 100 01/30/18 14:00 01/31/18 10:00 01/30/18 14:00 01/31/18 10:00 01/30/18 14:00 Intake and Output: 01/31/18 01/31/18 06:59 18:59 Intake Total 620 Balance 620 - Medications Medications: Current Medications Acetaminophen (Tylenol 325mg Tab) 650 mg PO Q6H PRN PRN Reason: Pain, moderate (4-7) Last Admin: 01/29/18 21:17 Dose: 650 mg Alprazolam (Xanax) 0.5 mg PO ONCE PRN; Protocol PRN Reason: Anxiety Aspirin (Aspirin Chewable) 81 mg PO DAILY [facility] Last Admin: 01/31/18 09:57 Dose: 81 mg Atorvastatin Calcium (Lipitor) 40 mg PO DIN [facility] Last Admin: 01/30/18 17:15 Dose: 40 mg Docusate Sodium (Colace) 100 mg PO BID PRN PRN Reason: Constipation Gabapentin (Neurontin) 300 mg PO TID [facility]; Protocol Last Admin: 01/31/18 09:56 Dose: 300 mg Hydralazine HCl (Apresoline) 10 mg IVP Q6 PRN PRN Reason: for SBP>160 Last Admin: 01/20/18 09:23 Dose: 10 mg Daptomycin 400 mg/ Sodium (Chloride) 100 mls @ 200 mls/hr IV Q24H [facility] Stop: 02/11/18 18:01 Last Admin: 01/30/18 19:27 Dose: Not Given Lisinopril (Zestril) 10 mg PO DAILY [facility] Last Admin: 01/31/18 09:59 Dose: 10 mg Lorazepam (Ativan) 1 mg IVP ONCE PRN; Protocol PRN Reason: Anxiety Metoprolol Tartrate (Lopressor) 50 mg PO BID OLGA Last Admin: 01/31/18 10:00 Dose: 50 mg Ondansetron HCl (Zofran Inj) 4 mg IVP Q6H PRN PRN Reason: Nausea/Vomiting Oxycodone HCl (Oxycodone Immediate Release Tab) 30 mg PO Q6H PRN PRN Reason: Pain, severe (8-10) Last Admin: 01/31/18 11:18 Dose: 30 mg Pantoprazole Sodium (Protonix Ec Tab) 40 mg PO ACB OLGA Last Admin: 01/31/18 09:57 Dose: 40 mg Quetiapine Fumarate (Seroquel) 12.5 mg PO HS PRN; Protocol PRN Reason: confusion/agitation/psychosis Last Admin: 01/30/18 21:13 Dose: 12.5 mg Silver Sulfadiazine (Silvadene 1% 25 Gm) 0 gm TP DAILY OLGA - Labs Labs: 01/31/18 11:45 01/31/18 06:30 PT 21.6 SECONDS (9.4-12.5) H 01/19/18 05:00 INR 1.85 01/19/18 05:00 APTT 60.7 Seconds (25.1-36.5) H 01/23/18 07:00 Attending/Attestation - Attestation I have personally seen and examined this patient.: Yes I have fully participated in the care of the patient.: Yes I have reviewed all pertinent clinical information, including history, physical exam and plan: Yes Notes (Text): 01/31/18 14:34 Attending note; Patient seen and examined with resident. patient is alert and awake. fever resolved. Patient is a 62-year-old female past medical history significant for invasive ductal carcinoma of the breast with metastases to the bone on chemotherapy, MSSA bacteremia, hypertension, coronary artery disease, osteoarthritis, history of right hip fracture, and ankle fracture that presented to the emergency room with altered mental status. 1. Severe sepsis with lactic acidosis. resolving slowly. Currently on IV daptomycin. Initial blood culture showed staph aureus bacteremia. MSSA. Repeat blood culture Is negative since 01/25/18. Urine culture is negative. Urine culture with no growth. still with leukocytosis. Started on cefepime and doxycycline by ID. Repeat blood culture ordered. Chest x-ray showed resolved CHF and pulmonary edema. CT abdomen and pelvis shows there is distention of the stomach with an air- fluid level, duodenum is also distended, remainder small bowel with normal caliber, there is mural thickening of the distal esophagus, possible esophagitis. 2. Toxic metabolic encephalopathy. resolved. patient is alert and awake today. CT head showed no acute intracranial findings. 3. Anemia. H&H stable. Stool for occult blood on 01/18/2018 positive. Currently no active bleeding. On aspirin. 4. non-ST elevation LA;; treated medically. Cardiology evaluation appreciated. echo showed EF of 20%, mitral regurgitation mild to moderate, mild tricuspid regurgitation, trace to small pericardial effusion. Continue Lipitor. Continue metoprolol and lisinopril. 5. Acute on chronic systolic CHF exacerbation. EF of 20%. resolved. 6. History of metastatic breast cancer. Patient follows at [facility] for chemotherapy. we will try to get records. 7. GI and DVT prophylaxis. Protonix and SCDs 8. chronic opiate seeking behavior; continue oxycodone and OxyContin. Case discussed in detail with the patient regarding current diagnosis and treatment plan. 01/31/18 14:35
--- NOTE | 2018-01-29 20:20 | CP.PCM.PCO ---
Physician Communication Note - Physician Communication Note Physician Communication Note: Resident Paged: Patient Refusing Scans Addendum Addendum: 01/29/18 20:14 I was paged for patient refusing MRI of spinal canal to r/o abscess as ordered by ID team. Patient had reportedly refused imaging earlier in the morning. Upon evaluation, Patient stated " I don't want to get no MRI at night" and "that little xanax won't do anything for me". Patient reported that she will get the MRI when she is ready. Patient was offered xanax for anxiety during imaging, and I explained the risks of continuing to postpone getting an MRI to the patient with verbal understanding demonstrated by patient. Patient is still refusing MRI at this time. -Nima Shaffer DO PGY1 01/29/18201901/29/18 20:24
[2018-01-30] MEDS: oxyCODONE 10 mg Immediate Release Tab PO PRN ×3 (05:04→17:18)
--- NOTE | 2018-01-30 05:41 | PN ---
DATE: 01/29/2018 SUBJECTIVE: The patient is in bed, no acute distress, nontoxic. PHYSICAL EXAMINATION: VITAL SIGNS: Temperature is 98, blood pressure is 100/50, respiratory rate of 16. HEENT: Unremarkable. NECK: Supple. LUNGS: Have decreased breath sounds. HEART: Normal S1, S2. ABDOMEN: Soft. LABORATORY EXAMINATION: Reveals a white count of 15,000, hemoglobin of . Chemistries reveals a BUN of 11, creatinine of 0.8. Microbiology is reviewed with staph aureus in the blood. Repeat cultures are negative. Sed rate of 85 and chemistries reveals a C-reactive protein of 27. Review of orders reveals the patient to be on doxycycline, daptomycin, and cefepime. ASSESSMENT AND PLAN: A 62-year-old female who is admitted with sepsis, sensitive to staph aureus bacteremia, [id number] myocardial infarction, metastatic breast cancer and questionable rash, and daptomycin, day #5 of 28. The patient was on acyclovir. Repeat blood cultures are negative. We will follow with you. Jamel Valencia MD
[2018-01-30] MEDS: Cefepime 1gm in NS 100ml 1 GM/100 ML BAG IVPB SCH ×3 (05:51→21:11)
[2018-01-30] MEDS ORDERED: oxyCODONE 10 mg ER Tab (oxyCONTIN) PO ONE (12:00)
[2018-01-30 12:36] LABS: BASO # 0.11 K/mm3 (0.0-2.0); BASO % 0.9 % (0.0-3.0); EOS # 0.7 (0.0-0.7); EOS % 5.6 % (1.5-5.0); GRAN # 6.67 (1.4-6.5); HEMOGLOBIN 8.8 g/dL (12.0-16.0); LYMPH # 2.6 (1.2-3.4); LYMPH % 22.5 % (22.0-35.0); MEAN CELL VOLUME 87.6 fl (80.0-105.0); MEAN CORPUSCULAR HEMOGLOBIN 27.2 pg (25.0-35.0); MEAN CORPUSCULAR HGB CONC 31.1 g/dl (31.0-37.0); MEAN PLATELET VOLUME 9.3 fl (7.0-11.0); MONO # 1.6 (0.1-0.6); RBC 3.23 10^6/uL (3.5-6.1); RED CELL DISTRIBUTION WIDTH 17.3 % (11.5-14.5); WHITE BLOOD COUNT 11.7 10^3/ul (4.5-11.0)
[2018-01-30 12:58] LABS: ALB/GLOB RATIO 0.8 (1.1-1.8); ALBUMIN 3.4 g/dL (3.0-4.8); ALT/SGPT 43 U/L (7-56); AST/SGOT 62 U/L (14-36); BLOOD UREA NITROGEN 17 mg/dL (7-21); CALCIUM 9.2 mg/dL (8.4-10.5); GFR NON-AFRICAN AMERICAN > 60
[2018-01-30 15:02] VITALS: RESP 18; TEMP 97.8; O2SAT 100
--- NOTE | 2018-01-30 16:51 | CP.PCM.PN ---
<Srinivasa Posadas - Last Filed: 01/30/18 17:05> Subjective - Date & Time of Evaluation Date of Evaluation: 01/30/18 Time of Evaluation: 16:48 - Subjective Subjective: Pt seen and examined at bedside this am. No acute complaints this am. Pt is refusing MRI without anxiety medication. No complaints of back pain. 12 point ROS is negative Objective - Vital Signs/Intake and Output Vital Signs (last 24 hours): Temp Pulse Resp BP Pulse Ox 97.8 F 75 18 91/48 L 100 01/30/18 14:00 01/30/18 14:00 01/30/18 14:00 01/30/18 14:00 01/30/18 14:00 Intake and Output: 01/30/18 01/30/18 06:59 18:59 Intake Total 360 Balance 360 - Medications Medications: Current Medications Acetaminophen (Tylenol 325mg Tab) 650 mg PO Q6H PRN PRN Reason: Pain, moderate (4-7) Last Admin: 01/29/18 21:17 Dose: 650 mg Alprazolam (Xanax) 0.5 mg PO ONCE PRN; Protocol PRN Reason: Anxiety Aspirin (Aspirin Chewable) 81 mg PO DAILY [facility] Last Admin: 01/30/18 10:19 Dose: 81 mg Atorvastatin Calcium (Lipitor) 40 mg PO DIN [facility] Last Admin: 01/29/18 17:03 Dose: 40 mg Docusate Sodium (Colace) 100 mg PO BID PRN PRN Reason: Constipation Doxycycline Hyclate (Doryx) 100 mg PO Q12 [facility]; Protocol Stop: 02/06/18 10:01 Last Admin: 01/30/18 10:18 Dose: 100 mg Gabapentin (Neurontin) 300 mg PO TID [facility]; Protocol Last Admin: 01/30/18 15:07 Dose: 300 mg Hydralazine HCl (Apresoline) 10 mg IVP Q6 PRN PRN Reason: for SBP>160 Last Admin: 01/20/18 09:23 Dose: 10 mg Daptomycin 400 mg/ Sodium (Chloride) 100 mls @ 200 mls/hr IV Q24H [facility] Stop: 02/11/18 18:01 Last Admin: 01/29/18 17:42 Dose: 200 mls/hr Cefepime HCl (Maxipime 1gm) 1 gm in 100 mls @ 25 mls/hr IVPB Q8 [facility]; Protocol Stop: 02/06/18 09:35 Last Admin: 01/30/18 14:56 Dose: 25 mls/hr Lisinopril (Zestril) 10 mg PO DAILY [facility] Last Admin: 01/30/18 10:18 Dose: 10 mg Lorazepam (Ativan) 1 mg IVP ONCE PRN; Protocol PRN Reason: Anxiety Metoprolol Tartrate (Lopressor) 50 mg PO BID [facility] Last Admin: 01/30/18 10:18 Dose: 50 mg Ondansetron HCl (Zofran Inj) 4 mg IVP Q6H PRN PRN Reason: Nausea/Vomiting Oxycodone HCl (Oxycodone Immediate Release Tab) 10 mg PO Q6H PRN PRN Reason: Pain, moderate (4-7) Last Admin: 01/30/18 11:06 Dose: 10 mg Oxycodone HCl (Oxycontin Extended Release Tab) 10 mg PO Q12 [facility] Stop: 02/02/18 22:01 Pantoprazole Sodium (Protonix Ec Tab) 40 mg PO ACB [facility] Quetiapine Fumarate (Seroquel) 12.5 mg PO HS PRN; Protocol PRN Reason: confusion/agitation/psychosis Last Admin: 01/28/18 21:59 Dose: 12.5 mg - Labs Labs: 01/30/18 12:30 01/30/18 12:30 PT 21.6 SECONDS (9.4-12.5) H 01/19/18 05:00 INR 1.85 01/19/18 05:00 APTT 60.7 Seconds (25.1-36.5) H 01/23/18 07:00 - Constitutional Appears: Well, Non-toxic, No Acute Distress - Head Exam Head Exam: NORMAL INSPECTION, NORMOCEPHALIC - Eye Exam Eye Exam: EOMI, Normal appearance - ENT Exam ENT Exam: Mucous Membranes Moist, Normal Exam - Neck Exam Neck Exam: Normal Inspection. absent: Meningismus - Respiratory Exam Respiratory Exam: Clear to Ausculation Bilateral, NORMAL BREATHING PATTERN - Cardiovascular Exam Cardiovascular Exam: REGULAR RHYTHM, +S1, +S2 - GI/Abdominal Exam GI & Abdominal Exam: Soft, Normal Bowel Sounds. absent: Distended - Extremities Exam Extremities Exam: absent: Calf Tenderness - Back Exam Back Exam: NORMAL INSPECTION - Neurological Exam Neurological Exam: Alert, Awake, Oriented x3 - Psychiatric Exam Psychiatric exam: Normal Affect, Normal Mood - Skin Skin Exam: Dry, Intact, Warm Assessment and Plan - Assessment and Plan (Free Text) Assessment: Pt is a 62-year-old female past medical history significant for age for invasive ductal carcinoma of the breast with metastases to the bone on ch emotherapy, MSSA bacteremia, hypertension, coronary artery disease, osteoarthritis, history of right hip fracture, and ankle fracture that presented to the emergency room with altered mental status. Patient is clinically stable w/o s/s of infection/ sepsis at this time. Repeat echo showed improvement from previous echo. Pt had fever/chills overnight, ID workup was done. Pt still pending MRI to r/u epidural abscess Plan: Sepsis with lactic acidosis. Patient afebrile this am MRI lumbar spine to r/o abscess- pending f/u repeat urine/blood/sputum cultures Leukocytosis increased Continue doxy & cefepime per ID recs Continue daptomycin per ID recs. ID following, recommendations appreciated. Pt refusing lumbar MRI despite numerous recs from ID. xanax ordered for pre- medication for MRI Chest xray: negative CT head per radiologist showed no acute intracranial findings. CT abdomen and pelvis per radiologist shows there is distention of the stomach with an air-fluid level, duodenum is also distended, remainder small bowel with normal caliber, there is mural thickening of the distal esophagus, possible esophagitis. MRI Head: Negative Echocardiogram: report pending Toxic metabolic encephalopathy Mental status improving. Most likely 2/2 Sepsis Pt evaluated by psychiatry. No acute psychiatric issues, signed off. Status post NC in a patient with history of coronary artery disease. Cardiology following, recommendations appreciated. 2-D echo per houseperson showed EF of 20%, mitral regurgitation mild to moderate, mild tricuspid regurgitation. Repeat Echo showed improved EF. No signs of vegetations Continue aspirin Hold plavix Continue Lipitor. Continue metoprolol and lisinopril. Cardiology consulted, Dr Alford Treat her NC medically - continue beta-blockers Chronic Pain: Oxycontin 10 - ER Q12 PRN Oxycodone 10 - IR Q6 PRN Anemia. H&H downtrending. Stool for occult blood on 01/18/2018 positive. F/u repeat FOBT Discussed with houseperson Dr. Alford. Heparin drip, plavix stopped per Dr. Alford. GI consulted, Dr Briggs Suggest conservative GI treatment - last seen by GI 01/19 Acute on chronic systolic CHF exacerbation. EF of 20%. Repeat Echo: LVEF 65% Continue with metoprolol and lisinopril. Cardiology following, recommendations appreciated. Hypertension. Continue metoprolol and lisinopril. Continue hydralazine prn. Cardiology following, recommendations appreciated. Esophagitis on CT abd/pelvis. Recent diarrhea. GI following, recommendations appreciated. C-Diff negative Pt. asymptomatic GI prophylaxis w/ Protonix 40 PO QD History of metastatic breast cancer. Patient follows at [facility] for chemotherapy. Pending documents to be sent GI and DVT prophylaxis. Protonix and SCD Patient is a full code <Fabiola Anne - Last Filed: 01/31/18 14:41> Objective - Vital Signs/Intake and Output Vital Signs (last 24 hours): Temp Pulse Resp BP Pulse Ox 97.8 F 93 H 18 105/63 100 01/30/18 14:00 01/31/18 10:00 01/30/18 14:00 01/31/18 10:00 01/30/18 14:00 Intake and Output: 01/31/18 01/31/18 06:59 18:59 Intake Total 620 Balance 620 - Medications Medications: Current Medications Acetaminophen (Tylenol 325mg Tab) 650 mg PO Q6H PRN PRN Reason: Pain, moderate (4-7) Last Admin: 01/29/18 21:17 Dose: 650 mg Alprazolam (Xanax) 0.5 mg PO ONCE PRN; Protocol PRN Reason: Anxiety Aspirin (Aspirin Chewable) 81 mg PO DAILY [facility] Last Admin: 01/31/18 09:57 Dose: 81 mg Atorvastatin Calcium (Lipitor) 40 mg PO DIN [facility] Last Admin: 01/30/18 17:15 Dose: 40 mg Docusate Sodium (Colace) 100 mg PO BID PRN PRN Reason: Constipation Gabapentin (Neurontin) 300 mg PO TID [facility]; Protocol Last Admin: 01/31/18 09:56 Dose: 300 mg Hydralazine HCl (Apresoline) 10 mg IVP Q6 PRN PRN Reason: for SBP>160 Last Admin: 01/20/18 09:23 Dose: 10 mg Daptomycin 400 mg/ Sodium (Chloride) 100 mls @ 200 mls/hr IV Q24H [facility] Stop: 02/11/18 18:01 Last Admin: 01/30/18 19:27 Dose: Not Given Lisinopril (Zestril) 10 mg PO DAILY [facility] Last Admin: 01/31/18 09:59 Dose: 10 mg Lorazepam (Ativan) 1 mg IVP ONCE PRN; Protocol PRN Reason: Anxiety Metoprolol Tartrate (Lopressor) 50 mg PO BID [facility] Last Admin: 01/31/18 10:00 Dose: 50 mg Ondansetron HCl (Zofran Inj) 4 mg IVP Q6H PRN PRN Reason: Nausea/Vomiting Oxycodone HCl (Oxycodone Immediate Release Tab) 30 mg PO Q6H PRN PRN Reason: Pain, severe (8-10) Last Admin: 01/31/18 11:18 Dose: 30 mg Pantoprazole Sodium (Protonix Ec Tab) 40 mg PO ACB [facility] Last Admin: 01/31/18 09:57 Dose: 40 mg Quetiapine Fumarate (Seroquel) 12.5 mg PO HS PRN; Protocol PRN Reason: confusion/agitation/psychosis Last Admin: 01/30/18 21:13 Dose: 12.5 mg Silver Sulfadiazine (Silvadene 1% 25 Gm) 0 gm TP DAILY [facility] - Labs Labs: 01/31/18 11:45 01/31/18 06:30 PT 21.6 SECONDS (9.4-12.5) H 01/19/18 05:00 INR 1.85 01/19/18 05:00 APTT 60.7 Seconds (25.1-36.5) H 01/23/18 07:00 Attending/Attestation - Attestation I have personally seen and examined this patient.: Yes I have fully participated in the care of the patient.: Yes I have reviewed all pertinent clinical information, including history, physical exam and plan: Yes Notes (Text): 01/31/18 14:37 Attending note; Patient seen and examined with resident. patient is alert and awake. fever resolved. Patient is a 62-year-old female past medical history significant for invasive ductal carcinoma of the breast with metastases to the bone on chemotherapy, MSSA bacteremia, hypertension, coronary artery disease, osteoarthritis, history of right hip fracture, and ankle fracture that presented to the emergency room with altered mental status. 1. Severe sepsis with lactic acidosis. resolving slowly. Currently on IV daptomycin. Dayy 6 of 28 day therapy. needs to complete 28 days of antibiotics. on cefepime and doxycycline by ID. Repeat blood culture is negative. Chest x-ray showed resolved CHF and pulmonary edema. MRI of the spine ordered by ID. Patient refused multiple times. Currently denies any back pain. 2. Toxic metabolic encephalopathy. resolved. patient is alert and awake today. CT head showed no acute intracranial findings. 3. Anemia. H&H stable.Currently no active bleeding. On aspirin. 4. non-ST elevation NC;; treated medically. Cardiology evaluation appreciated. echo showed EF of 20%, mitral regurgitation mild to moderate, mild tricuspid regurgitation, trace to small pericardial effusion. Continue Lipitor. Continue metoprolol and lisinopril. 5. Acute on chronic systolic CHF exacerbation. EF of 20%. resolved. 6. History of metastatic breast cancer. Patient follows at [facility] for chemotherapy. 7. GI and DVT prophylaxis. Protonix and SCDs 8. chronic opiate seeking behavior; continue oxycodone and OxyContin. PT evaluation appreciated. case discussed with case technician for discharge planning. Prognosis is poor secondary to multiple medical problems, noncompliance with fo llow-up and psychiatric disorder. Case discussed in detail with the patient regarding current diagnosis and treatment plan.
[2018-01-30] MEDS: oxyCODONE 10 mg ER Tab (oxyCONTIN) PO SCH (21:10)
--- NOTE | 2018-01-30 23:15 | PN ---
DATE: 01/30/2018 SUBJECTIVE: The patient is in bed in room 577. PHYSICAL EXAMINATION: VITAL SIGNS: On exam, the patient's temperature is 97, blood pressure is 113/50, respiratory rate of 18. HEENT: Examination of HEENT is unremarkable. NECK: Supple. LUNGS: Have decreased breath sounds. HEART: Normal S1 and S2. ABDOMEN: Soft. LABORATORY DATA: Laboratory examination reveals a white count of 11,700, hemoglobin of 8, platelets of 352. BUN of 17, creatinine of 0.7, procalcitonin is 0.34. Urinalysis is noted. Vanco trough is 12.5. Influenza is negative. Blood cultures are positive for Staph aureus. A repeat one . ASSESSMENT AND PLAN: A 62-year-old female, admitted with sepsis, found to have sensitive Staphylococcus aureus bacteremia, [id number] myocardial infarction, metastatic breast cancer, had a questionable rash, treated with beta-lactam. Now on daptomycin day #6 of 28 days. We will discontinue the Maxipime and doxycycline. The patient's white count this morning is down to 11,700. Jamel Valencia MD
[2018-01-31 07:05] LABS: BASO # 0.1 K/mm3 (0.0-2.0); BASO % 0.9 % (0.0-3.0); EOS # 0.7 (0.0-0.7); EOS % 6.2 % (1.5-5.0); GRAN # 5.92 (1.4-6.5); GRAN % 52.1 % (50.0-68.0); HEMOGLOBIN 7.4 g/dL (12.0-16.0); LYMPH # 3.3 (1.2-3.4); LYMPH % 28.6 % (22.0-35.0); MEAN CELL VOLUME 87.5 fl (80.0-105.0); MEAN CORPUSCULAR HEMOGLOBIN 27.3 pg (25.0-35.0); MEAN CORPUSCULAR HGB CONC 31.2 g/dl (31.0-37.0); MEAN PLATELET VOLUME 9.6 fl (7.0-11.0); MONO # 1.4 (0.1-0.6); MONO % 12.2 % (1.0-6.0); RBC 2.71 10^6/uL (3.5-6.1); RED CELL DISTRIBUTION WIDTH 17.3 % (11.5-14.5); WHITE BLOOD COUNT 11.4 10^3/ul (4.5-11.0)
[2018-01-31] MEDS ORDERED: Pantoprazole 40 mg EC Tab PO SCH (07:30)
[2018-01-31 07:58] LABS: ALB/GLOB RATIO 0.8 (1.1-1.8); ALBUMIN 2.7 g/dL (3.0-4.8); ALT/SGPT 35 U/L (7-56); AST/SGOT 57 U/L (14-36); BLOOD UREA NITROGEN 21 mg/dL (7-21); CALCIUM 8.6 mg/dL (8.4-10.5); GFR NON-AFRICAN AMERICAN > 60
[2018-01-31] MEDS: oxyCODONE 10 mg ER Tab (oxyCONTIN) PO SCH (09:57)
[2018-01-31 10:05] VITALS: BP 105/63; PULSE 93
[2018-01-31] MEDS ORDERED: oxyCODONE 30 mg Immediate Release Tab PO PRN (11:09)
--- NOTE | 2018-01-31 11:15 | CP.PCM.PN ---
Subjective - Subjective Subjective: pt refusing medical treatment. Pt refusing mri Pt refusing blood transfusion Pt refusing IV antibiotics PT only interested in increased pain medications dosage Numerous extensive conversations already had regarding medical conditions, pt refuses treatment Objective - Vital Signs/Intake and Output Vital Signs (last 24 hours): Temp Pulse Resp BP Pulse Ox 97.8 F 93 H 18 105/63 100 01/30/18 14:00 01/31/18 10:00 01/30/18 14:00 01/31/18 10:00 01/30/18 14:00 Intake and Output: 01/31/18 01/31/18 06:59 18:59 Intake Total 620 Balance 620 - Medications Medications: Current Medications Acetaminophen (Tylenol 325mg Tab) 650 mg PO Q6H PRN PRN Reason: Pain, moderate (4-7) Last Admin: 01/29/18 21:17 Dose: 650 mg Alprazolam (Xanax) 0.5 mg PO ONCE PRN; Protocol PRN Reason: Anxiety Aspirin (Aspirin Chewable) 81 mg PO DAILY [facility] Last Admin: 01/31/18 09:57 Dose: 81 mg Atorvastatin Calcium (Lipitor) 40 mg PO DIN [facility] Last Admin: 01/30/18 17:15 Dose: 40 mg Docusate Sodium (Colace) 100 mg PO BID PRN PRN Reason: Constipation Gabapentin (Neurontin) 300 mg PO TID [facility]; Protocol Last Admin: 01/31/18 09:56 Dose: 300 mg Hydralazine HCl (Apresoline) 10 mg IVP Q6 PRN PRN Reason: for SBP>160 Last Admin: 01/20/18 09:23 Dose: 10 mg Daptomycin 400 mg/ Sodium (Chloride) 100 mls @ 200 mls/hr IV Q24H [facility] Stop: 02/11/18 18:01 Last Admin: 01/30/18 19:27 Dose: Not Given Lisinopril (Zestril) 10 mg PO DAILY [facility] Last Admin: 01/31/18 09:59 Dose: 10 mg Lorazepam (Ativan) 1 mg IVP ONCE PRN; Protocol PRN Reason: Anxiety Metoprolol Tartrate (Lopressor) 50 mg PO BID [facility] Last Admin: 01/31/18 10:00 Dose: 50 mg Ondansetron HCl (Zofran Inj) 4 mg IVP Q6H PRN PRN Reason: Nausea/Vomiting Oxycodone HCl (Oxycodone Immediate Release Tab) 30 mg PO Q6H PRN PRN Reason: Pain, severe (8-10) Pantoprazole Sodium (Protonix Ec Tab) 40 mg PO ACB [facility] Last Admin: 01/31/18 09:57 Dose: 40 mg Quetiapine Fumarate (Seroquel) 12.5 mg PO HS PRN; Protocol PRN Reason: confusion/agitation/psychosis Last Admin: 01/30/18 21:13 Dose: 12.5 mg - Labs Labs: 01/31/18 06:30 01/31/18 06:30 PT 21.6 SECONDS (9.4-12.5) H 01/19/18 05:00 INR 1.85 01/19/18 05:00 APTT 60.7 Seconds (25.1-36.5) H 01/23/18 07:00
[2018-01-31] MEDS ORDERED: Silver Sulfadiazine 1% Cream (25 gm) TP SCH (11:30)
[2018-01-31 12:14] LABS: BASO % 0.9 % (0.0-3.0); EOS % 6.2 % (1.5-5.0); GRAN # 5.46 (1.4-6.5); GRAN % 53.9 % (50.0-68.0); HEMOGLOBIN 7.7 g/dL (12.0-16.0); LYMPH % 25.6 % (22.0-35.0); MEAN CELL VOLUME 89.9 fl (80.0-105.0); MEAN CORPUSCULAR HEMOGLOBIN 27.7 pg (25.0-35.0); MEAN CORPUSCULAR HGB CONC 30.8 g/dl (31.0-37.0); MEAN PLATELET VOLUME 10.2 fl (7.0-11.0); MONO % 13.4 % (1.0-6.0); RBC 2.78 10^6/uL (3.5-6.1); RED CELL DISTRIBUTION WIDTH 17.7 % (11.5-14.5); WHITE BLOOD COUNT 10.1 10^3/ul (4.5-11.0)
[2018-01-31 12:15] LABS: BASO # 0.09 K/mm3 (0.0-2.0); EOS # 0.6 (0.0-0.7); LYMPH # 2.6 (1.2-3.4); MONO # 1.4 (0.1-0.6)
--- NOTE | 2018-01-31 20:20 | CP.PCM.DIS ---
<Srinivasa Posadas - Last Filed: 02/01/18 18:10> Provider - Provider Date of Admission: 01/18/18 18:21 Attending physician: Fabiola Anne MD Primary care physician: Mellissa Crooks MD Consults: ID: Sav Chung MD GI: Daniel Briggs DO Cardio: Ignacio Perry MD Palliative Care: Joanne Matamoros RN, READING ASSISTANT Neurology: Robinson Hare MD Cardiology: Riik Alford MD Psychiatry: Aretha Garcia MD Time Spent in preparation of Discharge (in minutes): 45 Hospital Course - Lab Results Lab Results: Micro Results 01/28/18 10:30 Blood Blood Culture - Preliminary NO GROWTH AFTER 3 DAYS 01/28/18 10:20 Blood Blood Culture - Preliminary NO GROWTH AFTER 3 DAYS 01/25/18 16:00 Blood Blood Culture - Final NO GROWTH AFTER 5 DAYS 01/25/18 16:00 Blood Gram Stain - Final TEST NOT PERFORMED 01/25/18 15:30 Blood Blood Culture - Final NO GROWTH AFTER 5 DAYS 01/25/18 15:30 Blood Gram Stain - Final TEST NOT PERFORMED 01/24/18 21:31 Blood-Venous Blood Culture - Final NO GROWTH AFTER 5 DAYS 01/24/18 21:31 Blood-Venous Gram Stain - Final TEST NOT PERFORMED 01/24/18 21:31 Blood-Venous Blood Culture - Final NO GROWTH AFTER 5 DAYS 01/24/18 21:31 Blood-Venous Gram Stain - Final TEST NOT PERFORMED 01/20/18 09:50 Blood-Venous Blood Culture - Final NO GROWTH AFTER 5 DAYS 01/20/18 09:50 Blood-Venous Gram Stain - Final TEST NOT PERFORMED 01/20/18 10:00 Blood-Venous S.aureus & Coag-Neg Staph PNA FISH - Final 01/20/18 10:00 Blood-Venous Blood Culture - Final Staphylococcus Aureus 01/20/18 10:00 Blood-Venous Gram Stain - Final 01/19/18 14:00 Blood-Venous Blood Culture - Final NO GROWTH AFTER 5 DAYS 01/19/18 14:00 Blood-Venous Gram Stain - Final TEST NOT PERFORMED 01/19/18 13:30 Blood-Thru Central Line Blood Culture - Final NO GROWTH AFTER 5 DAYS 01/19/18 13:30 Blood-Thru Central Line Gram Stain - Final TEST NOT PERFORMED 01/18/18 15:15 Blood Blood Culture - Final Staphylococcus Aureus 01/18/18 15:15 Blood Gram Stain - Final 01/18/18 14:48 Blood S.aureus & Coag-Neg Staph PNA FISH - Final 01/18/18 14:48 Blood Blood Culture - Final Staphylococcus Aureus 01/18/18 14:48 Blood Gram Stain - Final 01/18/18 21:30 Nose MRSA Culture (Admit) - Final MRSA NOT DETECTED 01/18/18 14:48 Urine,Catheterized Urine Culture - Final No Growth (<1,000 CFU/ML) 01/18/18 22:30 Stool C. difficile Antigen & Toxins A,B - Final Most Recent Lab Values WBC 10.1 10^3/ul (4.5-11.0) 01/31/18 11:45 RBC 2.78 10^6/uL (3.5-6.1) L 01/31/18 11:45 Hgb 7.7 g/dL (12.0-16.0) L 01/31/18 11:45 Hct 25.0 % (36.0-48.0) L 01/31/18 11:45 MCV 89.9 fl (80.0-105.0) 01/31/18 11:45 MCH 27.7 pg (25.0-35.0) 01/31/18 11:45 MCHC 30.8 g/dl (31.0-37.0) L 01/31/18 11:45 RDW 17.7 % (11.5-14.5) H 01/31/18 11:45 Plt Count 299 10^3/uL (120.0-450.0) 01/31/18 11:45 MPV 10.2 fl (7.0-11.0) 01/31/18 11:45 Gran % 53.9 % (50.0-68.0) 01/31/18 11:45 Lymph % (Auto) 25.6 % (22.0-35.0) 01/31/18 11:45 [place] % (Auto) 13.4 % (1.0-6.0) H 01/31/18 11:45 Eos % (Auto) 6.2 % (1.5-5.0) H 01/31/18 11:45 Baso % (Auto) 0.9 % (0.0-3.0) 01/31/18 11:45 Gran # 5.46 (1.4-6.5) 01/31/18 11:45 Lymph # (Auto) 2.6 (1.2-3.4) 01/31/18 11:45 [place] # (Auto) 1.4 (0.1-0.6) H 01/31/18 11:45 Eos # (Auto) 0.6 (0.0-0.7) 01/31/18 11:45 Baso # (Auto) 0.09 K/mm3 (0.0-2.0) 01/31/18 11:45 Neutrophils % (Manual) 88 % (50.0-70.0) H 01/20/18 06:40 Band Neutrophils % 4 % (0-2) H 01/18/18 14:48 Lymphocytes % (Manual) 11 % (22.0-35.0) L 01/20/18 06:40 Monocytes % (Manual) 1 % (1.0-6.0) 01/20/18 06:40 Platelet Evaluation Normal (NORMAL) 01/20/18 06:40 Large Platelets Present 01/20/18 06:40 Anisocytosis (manual) 1+ 01/18/18 14:48 Microcytosis (manual) 1+ 01/18/18 14:48 Ovalocytes Slight 01/18/18 14:48 ESR 85 mm/hr (0.0-20.0) H 01/25/18 16:00 PT 21.6 SECONDS (9.4-12.5) H 01/19/18 05:00 INR 1.85 01/19/18 05:00 APTT 60.7 Seconds (25.1-36.5) H 01/23/18 07:00 pCO2 17 mm/Hg (35-45) L* 01/19/18 17:00 pO2 69.0 mm/Hg (80-100) L 01/19/18 17:00 HCO3 15.9 mmol/L (21-28) L 01/19/18 17:00 ABG pH 7.58 (7.35-7.45) H 01/19/18 17:00 ABG Total CO2 16.4 mmol.L (22-28) L 01/19/18 17:00 ABG O2 Saturation 97.9 % (95-98) 01/19/18 17:00 ABG Base Excess -3.2 mmol/L (-2.0-3.0) L 01/19/18 17:00 ABG Potassium 2.8 mmol/L (3.6-5.2) L 01/19/18 17:00 VBG pH 7.61 (7.32-7.43) H 01/18/18 17:22 VBG pCO2 24.0 (40-60) L 01/18/18 17:22 VBG HCO3 24.1 mmol/l (21-28) 01/18/18 17:22 VBG Total CO2 24.8 mmol.L (22-28) 01/18/18 17:22 VBG O2 Sat (Calc) 93.3 % (40-65) H 01/18/18 17:22 VBG Base Excess 4.0 mmol/L (0.0-2.0) H 01/18/18 17:22 VBG Potassium 2.1 mmol/L (3.6-5.2) L* 01/18/18 17:22 Sodium 142.0 mmol/L (132-148) 01/19/18 17:00 Chloride 116.0 mmol/L (98-107) H 01/19/18 17:00 Glucose 110 mg/dl (65-105) H 01/19/18 17:00 Lactate 1.9 mmol/L (0.7-2.1) 01/19/18 17:00 FiO2 30.0 % 01/19/18 17:00 Sodium 136 mmol/L (132-148) 01/31/18 06:30 Potassium 4.3 mmol/L (3.6-5.0) 01/31/18 06:30 Chloride 103 mmol/L (98-107) 01/31/18 06:30 Carbon Dioxide 28 mmol/L (21-33) 01/31/18 06:30 Anion Gap 9 (10-20) L 01/31/18 06:30 BUN 21 mg/dL (7-21) 01/31/18 06:30 Creatinine 0.8 mg/dl (0.7-1.2) 01/31/18 06:30 Est GFR ( Amer) > 60 01/31/18 06:30 Est GFR (Non-Af Amer) > 60 01/31/18 06:30 POC Glucose (mg/dL) 98 mg/dL (65-110) 01/20/18 16:32 Random Glucose 95 mg/dL (70-110) 01/31/18 06:30 Hemoglobin A1c 5.1 % (4.2-6.5) 01/20/18 06:40 Calcium 8.6 mg/dL (8.4-10.5) 01/31/18 06:30 Phosphorus 3.4 mg/dL (2.5-4.5) 01/31/18 06:30 Magnesium 1.7 mg/dL (1.7-2.2) 01/31/18 06:30 Total Bilirubin 0.4 mg/dL (0.2-1.3) 01/31/18 06:30 AST 57 U/L (14-36) H 01/31/18 06:30 ALT 35 U/L (7-56) 01/31/18 06:30 Alkaline Phosphatase 78 U/L (38-126) 01/31/18 06:30 Ammonia < 9 umol/L (9-33) L 01/20/18 10:00 Lactate Dehydrogenase 687 U/L (333-699) 01/24/18 06:30 Total Creatine Kinase 28 U/L (35-230) L 01/25/18 16:00 CK-MB (CK-2) 19.1 ng/mL (0.0-3.6) H 01/19/18 13:00 CK-MB (CK-2) % 4.9 % (2.5-3.0) H 01/19/18 13:00 Troponin I 0.19 ng/mL H* D 01/24/18 06:30 C-Reactive Protein 27.50 mg/L (0.0-9.9) H 01/25/18 16:00 NT-Pro-B Natriuret Pep 50223 pg/mL (0-450) H 01/19/18 13:00 Total Protein 6.2 g/dL (5.8-8.3) 01/31/18 06:30 Albumin 2.7 g/dL (3.0-4.8) L 01/31/18 06:30 Globulin 3.6 gm/dL 01/31/18 06:30 Albumin/Globulin Ratio 0.8 (1.1-1.8) L 01/31/18 06:30 Triglycerides 85 mg/dL (35-160) 01/20/18 06:40 Cholesterol 153 mg/dL (130-200) 01/20/18 06:40 LDL Cholesterol Direct 74 mg/dL (0-129) 01/20/18 06:40 HDL Cholesterol 39 mg/dL (29-60) 01/20/18 06:40 Lipase 146 U/L (23-300) 01/19/18 13:00 Procalcitonin 0.34 NG/ML (0.19-0.49) 01/28/18 10:30 TSH 3rd Generation 0.57 mIU/mL (0.46-4.68) 01/20/18 06:40 Arterial Blood Potassium 2.8 mmol/L (3.6-5.2) L 01/19/18 17:00 Venous Blood Potassium 2.1 mmol/L (3.6-5.2) L* 01/18/18 17:22 Urine Color Dark yellow (YELLOW) 01/18/18 14:48 Urine Appearance Sl cloudy (CLEAR) 01/18/18 14:48 Urine pH 6.0 (4.7-8.0) 01/18/18 14:48 Ur Specific [place] >= 1.030 (1.005-1.035) 01/18/18 14:48 Urine Protein >=300 mg/dL (<30 mg/dL) H 01/18/18 14:48 Urine Glucose (UA) Negative mg/dL (NEGATIVE) 01/18/18 14:48 Urine Ketones Negative mg/dL (NEGATIVE) 01/18/18 14:48 Urine Blood Large (NEGATIVE) H 01/18/18 14:48 Urine Nitrate Negative (NEGATIVE) 01/18/18 14:48 Urine Bilirubin Negative (NEGATIVE) 01/18/18 14:48 Urine Urobilinogen 0.2 E.U./dL (<1 E.U./dL) 01/18/18 14:48 Ur Leukocyte Esterase Negative [place]/uL (NEGATIVE) 01/18/18 14:48 Urine RBC 20 - 25 /hpf (0-2) 01/18/18 14:48 Urine WBC 1 - 3 /hpf (0-6) 01/18/18 14:48 Ur Epithelial Cells 4 - 5 /hpf (0-5) 01/18/18 14:48 Amorphous Sediment Few 01/18/18 14:48 Urine Bacteria Many (NEG) 01/18/18 14:48 Coarse Granular Casts Trace /hpf (0-2) H 01/18/18 14:48 Urine Other [place] 01/18/18 14:48 Stool Occult Blood Positive (NEGATIVE) H 01/18/18 22:30 Vancomycin Trough 12.5 ug/mL (5.0-10.0) H 01/20/18 06:40 Urine Opiates Screen Negative (NEGATIVE) 01/18/18 17:49 Urine Methadone Screen Negative (NEGATIVE) 01/18/18 17:49 Ur Barbiturates Screen Negative (NEGATIVE) 01/18/18 17:49 Ur Phencyclidine Scrn Negative (NEGATIVE) 01/18/18 17:49 Ur Amphetamines Screen Negative (NEGATIVE) 01/18/18 17:49 U Benzodiazepines Scrn Negative (NEGATIVE) 01/18/18 17:49 U Oth Cocaine Metabols Negative (NEGATIVE) 01/18/18 17:49 U Cannabinoids Screen Negative (NEGATIVE) 01/18/18 17:49 Influenza Typ A,B (EIA) Negative for flu a/b (NEGATIVE) 01/19/18 08:15 Blood Type A POSITIVE 01/19/18 05:50 Antibody Screen Negative 01/19/18 05:50 BBK History Checked Patient has bt 01/19/18 05:50 - Hospital Course Hospital Course: Upon Admission: Ms. Strauss is a 62 year old F with a PMH of stage IV invasive ductal carcinoma/breast cancer with bone mets on chemotherapy (last session 1.5 wks ago at [facility]), MSSA bacteremia, HTN, CAD, and OA presenting to the [facility] altered from home because home health aide found her to be confused today. Dr. Anne contacted Ady Her (son-in-law; contact info listed under summary in [employer]) and Riki Vazquez (other relative; [phone]) for more collateral information. They state that the patient lives at home with a 12hr home health aide, who found the patient to be more confused today but has been experiencing nausea/vomting/diarrhea x3 days, as well as decreased appetite. They state that the patient's last chemo infusion was 1.5 weeks ago at [facility]. Further HPI And ROS were attempted but are limited due to AMS. Hospital Course: Pt was initially admitted to the ICU for severe sepsis with lactic acidosis after she found to be febrile at 102.8 with AMS and leukocytosis of 14.9. Initial blood cultures grew MSSA. ID was consulted and she was started on empiric antibiotics of vancomycin, merrem, ampicillin, acyclovir and tamiflu. with recommendations for MRI brain. MRI brain showed no acute intracranial findings. Head CT was negative. CT abdomen showed signs of esophagitis. FOBT reavealed occult blood. GI was consulted and agreed with IV antibiotics, without endoscopic intervention at the time. Chest xray showed moderate cardiomegaly and moderate vascular and interstitial congestion.. EKG showed global ST elevations in V1-V6 as well as II, III, aVF. Pt had elevated troponins with the initial level at 1.5. Cardiology deemed her poor candidate for cardiac cath due to comorbidities. She was started on heparin drip as well as aspirin, plavix, lipitor, metoprolol and milrinone. Echocardiogram was done on 01/19/18 showing normal chamber size with an EF 20%, and trace pericardial effusion. Neurology was consulted for AMS, and recommended PURVI for possible endocarditis. She was continued on the medication management recommended by the specalists involved, and showed significant improvement in mental status. She became more verbal, however at some points, she began reporting hallucinations, psychiatry was consulted. Leukocytosis was trending down, however repeat blood cultures also grew MSSA, however no source was identified. As per ID recs lumbar MRI was ordered in order to rule out abscess but pt refused. She was AxO and demonstrat ed capable decision making capacity. A repeat echo was also ordered on 01/27/18 which showed LVEF within normal range with EF ~65%. Repeat chest xray showed resolved cardiomegaly and pulmonary vascular congestion. As she improved mentally, PT consult was placed and pt was able to tolerate therapy sessions. She was refusing further medical treatment, a lumbar MRI, blood transfusions for her anemia, and continued IV antibiotics. She demonstrated symptoms of chronic opiate dependence and was mainly concerned that she was receiving her oxycontin. Numerous extensive conversations were done regarding her medical condition however she refused treatment She was approved for subacute rehab placement and agreed to be discharged to [facility]. Son-in-law was involved with care, pt requested full code. Upon Discharge: Vital signs were stable, and pt was AXO x 3 and demonstrated decision-making ability. She was making good progress in PT with discharge recommendations for subacute rehab. Pt agreed with plan. Discharge Exam - Head Exam Head Exam: ATRAUMATIC, NORMAL INSPECTION, NORMOCEPHALIC - Eye Exam Eye Exam: EOMI, Normal appearance - ENT Exam ENT Exam: Mucous Membranes Moist, Normal Exam - Neck Exam Neck exam: Normal Inspection - Respiratory Exam Respiratory Exam: Clear to PA & Lateral, NORMAL BREATHING PATTERN - Cardiovascular Exam Cardiovascular Exam: REGULAR RHYTHM, +S1, +S2 - GI/Abdominal Exam GI & Abdominal Exam: Normal Bowel Sounds, Unremarkable - Extremities Exam Extremities exam: normal inspection - Back Exam Back exam: NORMAL INSPECTION - Neurological Exam Neurological exam: Alert, Oriented x3 - Psychiatric Exam Psychiatric exam: Normal Affect, Normal Mood - Skin Skin Exam: Dry, Intact, Warm Discharge Plan - Follow Up Plan Condition: FAIR Disposition: REHAB FACILITY/REHAB UNIT Instructions: Sepsis in Adults Additional Instructions: You are being discharged to a Subacute Rehab ([facility]). Please continue current medications (a list has been printed and placed in chart) once patient arrives to [facility]. Please follow up with your Primary Care Doctor Dr. Lama within 3 to 5 days Please follow up with your Rn Community/Oncologist within 1 week: Dr. Cedeno. [place], [place]. Please note that you are going to [facility] Facility for IV antibiotics (daptomycin) treatment for 28 days. Patient is welcomed to return to [facility] if you happen to experience new or changes in symptoms. Referrals: Mellissa Crooks MD [Primary Care Provider] - Sav Chung MD [Staff Provider] - Daniel Briggs DO [Staff Provider] - Ignacio Perry MD [Staff Provider] - Joanne Matamoros, SCOTTIE, READING ASSISTANT [Staff Provider] - Robinson Hare MD [Staff Provider] - Riki Alford MD [Staff Provider] - Aretha Garcia MD [Staff Provider] - <Fabiola Anne - Last Filed: 02/02/18 10:45> Provider - Provider Date of Admission: 01/18/18 18:21 Attending physician: Fabiola nAne MD Primary care physician: Mellissa Crooks MD Hospital Course - Lab Results Lab Results: Micro Results 01/28/18 10:30 Blood Blood Culture - Preliminary NO GROWTH AFTER 4 DAYS 01/28/18 10:20 Blood Blood Culture - Preliminary NO GROWTH AFTER 4 DAYS 01/25/18 16:00 Blood Blood Culture - Final NO GROWTH AFTER 5 DAYS 01/25/18 16:00 Blood Gram Stain - Final TEST NOT PERFORMED 01/25/18 15:30 Blood Blood Culture - Final NO GROWTH AFTER 5 DAYS 01/25/18 15:30 Blood Gram Stain - Final TEST NOT PERFORMED 01/24/18 21:31 Blood-Venous Blood Culture - Final NO GROWTH AFTER 5 DAYS 01/24/18 21:31 Blood-Venous Gram Stain - Final TEST NOT PERFORMED 01/24/18 21:31 Blood-Venous Blood Culture - Final NO GROWTH AFTER 5 DAYS 01/24/18 21:31 Blood-Venous Gram Stain - Final TEST NOT PERFORMED 01/20/18 09:50 Blood-Venous Blood Culture - Final NO GROWTH AFTER 5 DAYS 01/20/18 09:50 Blood-Venous Gram Stain - Final TEST NOT PERFORMED 01/20/18 10:00 Blood-Venous S.aureus & Coag-Neg Staph PNA FISH - Final 01/20/18 10:00 Blood-Venous Blood Culture - Final Staphylococcus Aureus 01/20/18 10:00 Blood-Venous Gram Stain - Final 01/19/18 14:00 Blood-Venous Blood Culture - Final NO GROWTH AFTER 5 DAYS 01/19/18 14:00 Blood-Venous Gram Stain - Final TEST NOT PERFORMED 01/19/18 13:30 Blood-Thru Central Line Blood Culture - Final NO GROWTH AFTER 5 DAYS 01/19/18 13:30 Blood-Thru Central Line Gram Stain - Final TEST NOT PERFORMED 01/18/18 15:15 Blood Blood Culture - Final Staphylococcus Aureus 01/18/18 15:15 Blood Gram Stain - Final 01/18/18 14:48 Blood S.aureus & Coag-Neg Staph PNA FISH - Final 01/18/18 14:48 Blood Blood Culture - Final Staphylococcus Aureus 01/18/18 14:48 Blood Gram Stain - Final 01/18/18 21:30 Nose MRSA Culture (Admit) - Final MRSA NOT DETECTED 01/18/18 14:48 Urine,Catheterized Urine Culture - Final No Growth (<1,000 CFU/ML) 01/18/18 22:30 Stool C. difficile Antigen & Toxins A,B - Final Most Recent Lab Values WBC 10.1 10^3/ul (4.5-11.0) 01/31/18 11:45 RBC 2.78 10^6/uL (3.5-6.1) L 01/31/18 11:45 Hgb 7.7 g/dL (12.0-16.0) L 01/31/18 11:45 Hct 25.0 % (36.0-48.0) L 01/31/18 11:45 MCV 89.9 fl (80.0-105.0) 01/31/18 11:45 MCH 27.7 pg (25.0-35.0) 01/31/18 11:45 MCHC 30.8 g/dl (31.0-37.0) L 01/31/18 11:45 RDW 17.7 % (11.5-14.5) H 01/31/18 11:45 Plt Count 299 10^3/uL (120.0-450.0) 01/31/18 11:45 MPV 10.2 fl (7.0-11.0) 01/31/18 11:45 Gran % 53.9 % (50.0-68.0) 01/31/18 11:45 Lymph % (Auto) 25.6 % (22.0-35.0) 01/31/18 11:45 [place] % (Auto) 13.4 % (1.0-6.0) H 01/31/18 11:45 Eos % (Auto) 6.2 % (1.5-5.0) H 01/31/18 11:45 Baso % (Auto) 0.9 % (0.0-3.0) 01/31/18 11:45 Gran # 5.46 (1.4-6.5) 01/31/18 11:45 Lymph # (Auto) 2.6 (1.2-3.4) 01/31/18 11:45 [place] # (Auto) 1.4 (0.1-0.6) H 01/31/18 11:45 Eos # (Auto) 0.6 (0.0-0.7) 01/31/18 11:45 Baso # (Auto) 0.09 K/mm3 (0.0-2.0) 01/31/18 11:45 Neutrophils % (Manual) 88 % (50.0-70.0) H 01/20/18 06:40 Band Neutrophils % 4 % (0-2) H 01/18/18 14:48 Lymphocytes % (Manual) 11 % (22.0-35.0) L 01/20/18 06:40 Monocytes % (Manual) 1 % (1.0-6.0) 01/20/18 06:40 Platelet Evaluation Normal (NORMAL) 01/20/18 06:40 Large Platelets Present 01/20/18 06:40 Anisocytosis (manual) 1+ 01/18/18 14:48 Microcytosis (manual) 1+ 01/18/18 14:48 Ovalocytes Slight 01/18/18 14:48 ESR 85 mm/hr (0.0-20.0) H 01/25/18 16:00 PT 21.6 SECONDS (9.4-12.5) H 01/19/18 05:00 INR 1.85 01/19/18 05:00 APTT 60.7 Seconds (25.1-36.5) H 01/23/18 07:00 pCO2 17 mm/Hg (35-45) L* 01/19/18 17:00 pO2 69.0 mm/Hg (80-100) L 01/19/18 17:00 HCO3 15.9 mmol/L (21-28) L 01/19/18 17:00 ABG pH 7.58 (7.35-7.45) H 01/19/18 17:00 ABG Total CO2 16.4 mmol.L (22-28) L 01/19/18 17:00 ABG O2 Saturation 97.9 % (95-98) 01/19/18 17:00 ABG Base Excess -3.2 mmol/L (-2.0-3.0) L 01/19/18 17:00 ABG Potassium 2.8 mmol/L (3.6-5.2) L 01/19/18 17:00 VBG pH 7.61 (7.32-7.43) H 01/18/18 17:22 VBG pCO2 24.0 (40-60) L 01/18/18 17:22 VBG HCO3 24.1 mmol/l (21-28) 01/18/18 17:22 VBG Total CO2 24.8 mmol.L (22-28) 01/18/18 17:22 VBG O2 Sat (Calc) 93.3 % (40-65) H 01/18/18 17:22 VBG Base Excess 4.0 mmol/L (0.0-2.0) H 01/18/18 17:22 VBG Potassium 2.1 mmol/L (3.6-5.2) L* 01/18/18 17:22 Sodium 142.0 mmol/L (132-148) 01/19/18 17:00 Chloride 116.0 mmol/L (98-107) H 01/19/18 17:00 Glucose 110 mg/dl (65-105) H 01/19/18 17:00 Lactate 1.9 mmol/L (0.7-2.1) 01/19/18 17:00 FiO2 30.0 % 01/19/18 17:00 Sodium 136 mmol/L (132-148) 01/31/18 06:30 Potassium 4.3 mmol/L (3.6-5.0) 01/31/18 06:30 Chloride 103 mmol/L (98-107) 01/31/18 06:30 Carbon Dioxide 28 mmol/L (21-33) 01/31/18 06:30 Anion Gap 9 (10-20) L 01/31/18 06:30 BUN 21 mg/dL (7-21) 01/31/18 06:30 Creatinine 0.8 mg/dl (0.7-1.2) 01/31/18 06:30 Est GFR ( Amer) > 60 01/31/18 06:30 Est GFR (Non-Af Amer) > 60 01/31/18 06:30 POC Glucose (mg/dL) 98 mg/dL (65-110) 01/20/18 16:32 Random Glucose 95 mg/dL (70-110) 01/31/18 06:30 Hemoglobin A1c 5.1 % (4.2-6.5) 01/20/18 06:40 Calcium 8.6 mg/dL (8.4-10.5) 01/31/18 06:30 Phosphorus 3.4 mg/dL (2.5-4.5) 01/31/18 06:30 Magnesium 1.7 mg/dL (1.7-2.2) 01/31/18 06:30 Total Bilirubin 0.4 mg/dL (0.2-1.3) 01/31/18 06:30 AST 57 U/L (14-36) H 01/31/18 06:30 ALT 35 U/L (7-56) 01/31/18 06:30 Alkaline Phosphatase 78 U/L (38-126) 01/31/18 06:30 Ammonia < 9 umol/L (9-33) L 01/20/18 10:00 Lactate Dehydrogenase 687 U/L (333-699) 01/24/18 06:30 Total Creatine Kinase 28 U/L (35-230) L 01/25/18 16:00 CK-MB (CK-2) 19.1 ng/mL (0.0-3.6) H 01/19/18 13:00 CK-MB (CK-2) % 4.9 % (2.5-3.0) H 01/19/18 13:00 Troponin I 0.19 ng/mL H* D 01/24/18 06:30 C-Reactive Protein 27.50 mg/L (0.0-9.9) H 01/25/18 16:00 NT-Pro-B Natriuret Pep 48217 pg/mL (0-450) H 01/19/18 13:00 Total Protein 6.2 g/dL (5.8-8.3) 01/31/18 06:30 Albumin 2.7 g/dL (3.0-4.8) L 01/31/18 06:30 Globulin 3.6 gm/dL 01/31/18 06:30 Albumin/Globulin Ratio 0.8 (1.1-1.8) L 01/31/18 06:30 Triglycerides 85 mg/dL (35-160) 01/20/18 06:40 Cholesterol 153 mg/dL (130-200) 01/20/18 06:40 LDL Cholesterol Direct 74 mg/dL (0-129) 01/20/18 06:40 HDL Cholesterol 39 mg/dL (29-60) 01/20/18 06:40 Lipase 146 U/L (23-300) 01/19/18 13:00 Procalcitonin 0.34 NG/ML (0.19-0.49) 01/28/18 10:30 TSH 3rd Generation 0.57 mIU/mL (0.46-4.68) 01/20/18 06:40 Arterial Blood Potassium 2.8 mmol/L (3.6-5.2) L 01/19/18 17:00 Venous Blood Potassium 2.1 mmol/L (3.6-5.2) L* 01/18/18 17:22 Urine Color Dark yellow (YELLOW) 01/18/18 14:48 Urine Appearance Sl cloudy (CLEAR) 01/18/18 14:48 Urine pH 6.0 (4.7-8.0) 01/18/18 14:48 Ur Specific [place] >= 1.030 (1.005-1.035) 01/18/18 14:48 Urine Protein >=300 mg/dL (<30 mg/dL) H 01/18/18 14:48 Urine Glucose (UA) Negative mg/dL (NEGATIVE) 01/18/18 14:48 Urine Ketones Negative mg/dL (NEGATIVE) 01/18/18 14:48 Urine Blood Large (NEGATIVE) H 01/18/18 14:48 Urine Nitrate Negative (NEGATIVE) 01/18/18 14:48 Urine Bilirubin Negative (NEGATIVE) 01/18/18 14:48 Urine Urobilinogen 0.2 E.U./dL (<1 E.U./dL) 01/18/18 14:48 Ur Leukocyte Esterase Negative [place]/uL (NEGATIVE) 01/18/18 14:48 Urine RBC 20 - 25 /hpf (0-2) 01/18/18 14:48 Urine WBC 1 - 3 /hpf (0-6) 01/18/18 14:48 Ur Epithelial Cells 4 - 5 /hpf (0-5) 01/18/18 14:48 Amorphous Sediment Few 01/18/18 14:48 Urine Bacteria Many (NEG) 01/18/18 14:48 Coarse Granular Casts Trace /hpf (0-2) H 01/18/18 14:48 Urine Other Uyeast 01/18/18 14:48 Stool Occult Blood Positive (NEGATIVE) H 01/18/18 22:30 Vancomycin Trough 12.5 ug/mL (5.0-10.0) H 01/20/18 06:40 Urine Opiates Screen Negative (NEGATIVE) 01/18/18 17:49 Urine Methadone Screen Negative (NEGATIVE) 01/18/18 17:49 Ur Barbiturates Screen Negative (NEGATIVE) 01/18/18 17:49 Ur Phencyclidine Scrn Negative (NEGATIVE) 01/18/18 17:49 Ur Amphetamines Screen Negative (NEGATIVE) 01/18/18 17:49 U Benzodiazepines Scrn Negative (NEGATIVE) 01/18/18 17:49 U Oth Cocaine Metabols Negative (NEGATIVE) 01/18/18 17:49 U Cannabinoids Screen Negative (NEGATIVE) 01/18/18 17:49 Influenza Typ A,B (EIA) Negative for flu a/b (NEGATIVE) 01/19/18 08:15 Blood Type A POSITIVE 01/19/18 05:50 Antibody Screen Negative 01/19/18 05:50 BBK History Checked Patient has bt 01/19/18 05:50 Attending/Attestation - Attestation I have personally seen and examined this patient.: Yes I have fully participated in the care of the patient.: Yes I have reviewed all pertinent clinical information, including history, physical exam and plan: Yes Notes (Text): 02/02/18 10:43 Attending note; Patient seen and examined with resident. patient is alert and awake. fever resolved. Patient is a 62-year-old female past medical history significant for invasive ductal carcinoma of the breast with metastases to the bone on chemotherapy, MSSA bacteremia, hypertension, coronary artery disease, osteoarthritis, history of right hip fracture, and ankle fracture that presented to the emergency room with altered mental status. 1.MSSA bacteremia.Severe sepsis with lactic acidosis. resolved. Currently on IV daptomycin. Day 7 of 28 day therapy. needs to complete 28 days of antibiotics. Repeat blood culture is negative. Chest x-ray showed resolved CHF and pulmonary edema. MRI of the spine ordered by ID. Patient refused multiple times. Currently denies any back pain. 2. Toxic metabolic encephalopathy. resolved. patient is alert and awake today. CT head showed no acute intracranial findings. 3. Anemia. H&H stable.Currently no active bleeding. HB dropped. Patient denied any active bleeding. Refused blood transfusion. 4. non-ST elevation [place];; treated medically. Cardiology evaluation appreciated. echo showed EF of 20%, mitral regurgitation mild to moderate, mild tricuspid regurgitation, trace to small pericardial effusion. Continue Lipitor. Continue metoprolol and lisinopril. 5. Acute on chronic systolic CHF exacerbation. EF of 20%. resolved. 6. History of metastatic breast cancer. Patient follows at [facility] for chemotherapy. Case discussed with oncologist in [facility]. Patient gets PDM therapy. Patient has metastatic breast cancer to sternum. other bones are not affecte as per oncologist. 7. GI and DVT prophylaxis. Protonix and SCDs 8. chronic opiate seeking behavior; continue oxycodone. PT evaluation appreciated. case discussed with correctional casework specialist for discharge planning. Patient will be transferred to rehabilitation today. Prognosis is poor secondary to multiple medical problems, noncompliance with follow-up and psychiatric disorder. Case discussed in detail with the patient regarding current diagnosis and treatment plan.
--- NOTE | 2018-01-31 23:38 | PN ---
DATE: 01/31/2018 SUBJECTIVE: The patient is in bed, in no acute distress, nontoxic. PHYSICAL EXAMINATION: VITAL SIGNS: Temperature is 98, blood pressure is 100/60, respiratory rate of 18. HEENT: Unremarkable. NECK: Supple. LUNGS: Have decreased breath sounds. HEART: Normal S1, S2. ABDOMEN: Soft. LABORATORY EXAMINATION: Reveals a white count is down to 10,000 and the patient's sed rate is 85. Chemistries are noted. Creatinine is 0.8. C-reactive protein is 27. ASSESSMENT AND PLAN: A 62-year-old female, admitted with sepsis, found to have sensitive Staphylococcus aureus bacteremia, [id number] myocardial infarction, metastatic breast cancer, questionable rash, with beta-lactam, on daptomycin day #7 of at least 28 days ideally. The patient should have an MRI of the spine. She has intermittently had complained of back pain; however, she has refused that. We will also order a sed rate and C-reactive protein and a CPK. We will follow with you. We will continue treatment beyond the correction of the inflammatory markers. The patient has had MRI of the head, has not had MRI or CAT scan of the spine, she has got intermittent complaints of back pain, she reports concern about vertebral osteomyelitis with either osteomyelitis or an abscess formation, white count is now normalized. We will continue to follow with you. Case discussed with Dr. Anne this morning. Jamel Valencia MD
== END 2018-01-31 17:50 | DRG 584 ==
LOC: ED 14:11 → ERH 18:21 → CCU 21:11 → 2RSO 01-20 21:45 → 5RSO 01-28 19:50
PROVIDERS: ADMIT Internal Medicine; ATTEND Internal Medicine
PROC: 05HY33Z Insertion of Infusion Device into Upper Vein, Percutaneous Approach (ICD-10-PCS; principal; 2018-01-22)
DX: A41.02 Sepsis due to Methicillin resistant Staphylococcus aureus (principal); G92 Toxic encephalopathy; I21.09 ST elevation (STEMI) myocardial infarction involving other coronary artery of anterior wall; I21.4 Non-ST elevation (NSTEMI) myocardial infarction; I50.23 Acute on chronic systolic (congestive) heart failure; J18.9 Pneumonia, unspecified organism; R65.21 Severe sepsis with septic shock; E87.2 Acidosis; C79.51 Secondary malignant neoplasm of bone; E87.6 Hypokalemia; I08.1 Rheumatic disorders of both mitral and tricuspid valves; I11.0 Hypertensive heart disease with heart failure; I42.0 Dilated cardiomyopathy; C50.919 Malignant neoplasm of unspecified site of unspecified female breast; D64.9 Anemia, unspecified; E11.9 Type 2 diabetes mellitus without complications; E78.00 Pure hypercholesterolemia, unspecified; E86.0 Dehydration; F41.9 Anxiety disorder, unspecified; I25.110 Atherosclerotic heart disease of native coronary artery with unstable angina pectoris; I25.5 Ischemic cardiomyopathy; K20.9 Esophagitis, unspecified; K52.9 Noninfective gastroenteritis and colitis, unspecified; M19.90 Unspecified osteoarthritis, unspecified site; M81.0 Age-related osteoporosis without current pathological fracture; Y95 Nosocomial condition; Z53.20 Procedure and treatment not carried out because of patient's decision for unspecified reasons; Z76.5 Malingerer [conscious simulation]; Z79.02 Long term (current) use of antithrombotics/antiplatelets; Z79.82 Long term (current) use of aspirin; Z85.3 Personal history of malignant neoplasm of breast; Z85.830 Personal history of malignant neoplasm of bone; Z91.19 Patient's noncompliance with other medical treatment and regimen; Z92.21 Personal history of antineoplastic chemotherapy; G89.29 Other chronic pain

== ENCOUNTER 2018-02-28 17:46 | Inpatient (IN) | payer OTHER ==
[2018-02-28 18:14] VITALS: BMI 25.2
--- NOTE | 2018-02-28 19:07 | ED PDOC ---
Arrival/HPI - General Chief Complaint: Lower Extremity Problem/Injury Time Seen by Provider: 02/28/18 17:55 Historian: Patient - History of Present Illness Narrative History of Present Illness (Text): 02/28/18 19:05 A 62 year old female presents to the emergency department with a complaint of 3 week duration lower extremity swelling. The patient notes that she is being treated at a rehabilitation facility because she developed an infection and is being treated with IV antibiotics. She notes that she had an ultrasound done 1 week ago with was negative for clots. The patient denies fevers, chills, headache, dizziness, chest pain, shortness of breath, dyspnea on exertion, cough, abdominal pain, nausea, vomiting, diarrhea, back pain, neck pain, urinary/bowel changes, trauma/injury, or any other complaint. Time/Duration: Other (3 weeks) Symptom Onset: Gradual Symptom Course: Unchanged Activities at Onset: Rest, Light Context: Home Past Medical History - Provider Review Nursing Documentation Reviewed: Yes - Past History Past History: No Previous - Infectious Disease Hx of Infectious Diseases: None - Tetanus Immunization Tetanus Immunization: Unknown - Past Medical History Past Medical History: Non-Contributing - Cardiac Hx Hypertension: Yes - Pulmonary Hx Respiratory Disorders: No - Neurological Hx Neurological Disorder: No - HEENT Hx HEENT Disorder: No - Renal Hx Renal Disorder: No - Endocrine/Metabolic Hx Endocrine Disorders: No - Hematological/Oncological Hx Cancer: Yes (stage 4 breast CA with mets) - Integumentary Hx Dermatological Disorder: No - Musculoskeletal/Rheumatological Hx Falls: No - Gastrointestinal Hx Gastrointestinal Disorders: No - Genitourinary/Gynecological Hx Genitourinary Disorders: No - Psychiatric Hx Anxiety: Yes Hx Substance Use: No - Surgical History Hx Joint Replacement: Yes (right hip (3 screws)) Hx Mastectomy: No - Anesthesia Hx Anesthesia: Yes Hx Anesthesia Reactions: No Hx Malignant Hyperthermia: No - Suicidal Assessment Feels Threatened In Home Enviroment: No Family/Social History - Physician Review Nursing Documentation Reviewed: Yes Family/Social History: No Known Family HX Smoking Status: Never Smoked Hx Alcohol Use: No Amount per day: 3 Hx Substance Use: No Hx Substance Use Treatment: No Allergies/Home Meds Allergies/Adverse Reactions: Allergies apple Allergy (Verified 01/29/18 13:22) ITCHING Review of Systems - Physician Review All systems were reviewed & negative as marked: Yes - Review of Systems Constitutional: absent: Fevers Respiratory: absent: SOB, Cough Cardiovascular: absent: Chest Pain, TERESA Gastrointestinal: absent: Abdominal Pain, Stool Changes, Diarrhea, Nausea, Vomiting Genitourinary Female: absent: Urine Output Changes Musculoskeletal: Other (Lower extremity swelling x 3 weeks). absent: Back Pain, Neck Pain Neurological: absent: Headache, Dizziness Physical Exam Vital Signs Reviewed: Yes Vital Signs Temp Pulse Resp BP Pulse Ox 02/28/18 18:08 61 16 103/57 L 93 L 02/28/18 17:54 98.0 F 66 18 103/57 L 99 Temperature: Afebrile Blood Pressure: Hypotensive Pulse: Regular Respiratory Rate: Normal Appearance: Positive for: Well-Appearing, Non-Toxic, Comfortable Pain Distress: None Mental Status: Positive for: Alert and Oriented X 3 - Systems Exam Head: Present: Atraumatic, Normocephalic Pupils: Present: PERRL Extroacular Muscles: Present: EOMI Conjunctiva: Present: Normal Mouth: Present: Moist Mucous Membranes Neck: Present: Normal Range of Motion Respiratory/Chest: Present: Clear to Auscultation, Good Air Exchange. No: Respiratory Distress, Accessory Muscle Use Cardiovascular: Present: Regular Rate and Rhythm, Normal S1, S2. No: Murmurs Abdomen: No: Tenderness, Distention, Peritoneal Signs Back: Present: Normal Inspection Upper Extremity: Present: Normal Inspection. No: Cyanosis, Edema Lower Extremity: Present: Edema (2+ lower leg pitting edema extending to her feet.), NORMAL PULSES, Neurovascularly Intact, Capillary Refill < 2 s. No: Tenderness, Erythema Neurological: Present: GCS=15, CN II-XII Intact, Speech Normal Skin: Present: Warm, Dry, Normal Color. No: Rashes Psychiatric: Present: Alert, Oriented x 3, Normal Insight, Normal Concentration Medical Decision Making ED Course and Treatment: 02/28/18 19:10 Impression: A 62 year old female presents to the emergency department with a complaint of 3 week duration lower extremity swelling. Plan: -- EKG -- Lower Extremity Ultrasound -- Chest X-ray -- Labs -- Urinalysis -- Urine Culture -- Reassess and disposition Prior Visits: Notes and results from previous visits were reviewed. It is documented in her last admission that the patient had an EF of 20% and h/o pulmonary congestion. Progress Notes: CXR : NAD, compared to prior CXR. EKG: NSR at 68 bpm, T wave inversions noted on leads V3-V5 which is not new and present on prior EKG on 01/21/18, (-) acute ST changes. US doppler b/l LE : no DVT, as per US tech. Labs reviewed : hgb is stable at 8.4, no elevated wbc, K 3.2, bun/creat is nl, trop (-), bnp 330. On re-evaluation, patient is resting in bed comfortably in no acute distress. Reports no CP or SOB. Diagnostic results d/w the patient and plan for further observation discussed with the patient, which she agrees to. Case d/w medical malpractice paralegal and Dr. Gimenez, agree with plan for observation under the hospitalist service. - Lab Interpretations I have reviewed the lab results: Yes - RAD Interpretation Radiology Orders: 02/28/18 18:39 CHEST PORTABLE [RAD] Stat 02/28/18 18:41 DUPLEX LOWER EXTRM VEIN BILAT [US] Stat - EKG Interpretation Interpreted by ED Physician: Yes Type: 12 lead EKG - PA / PEST MANAGEMENT SUPERVISOR / Resident Statement MD/DO has reviewed & agrees with the documentation as recorded. - Scribe Statement The provider has reviewed the documentation as recorded by the Betoibsabas Alves Provider Scribe Attestation: All medical record entries made by the Scribe were at my direction and personally dictated by me. I have reviewed the chart and agree that the record accurately reflects my personal performance of the history, physical exam, medical decision making, and the department course for this patient. I have also personally directed, reviewed, and agree with the discharge instructions and disposition. Disposition/Present on Arrival - Present on Arrival Any Indicators Present on Arrival: Yes History of DVT/PE: No History of Uncontrolled Diabetes: No Urinary Catheter: Yes History of Decub. Ulcer: No History Surgical Site Infection Following: None - Disposition Have Diagnosis and Disposition been Completed?: Yes Diagnosis: Lower extremity edema Disposition: HOSPITALIZED Disposition Time: 20:30 Patient Plan: Observation Patient Problems: Current Active Problems Problem Status Onset Lower extremity edema Acute Condition: STABLE
[2018-02-28 19:10] LABS: BASO # 0.06 K/mm3 (0.0-2.0); BASO % 0.8 % (0.0-3.0); EOS # 0.3 (0.0-0.7); EOS % 4.1 % (1.5-5.0); GRAN # 4.22 (1.4-6.5); GRAN % 55.2 % (50.0-68.0); HEMOGLOBIN 8.4 g/dL (12.0-16.0); LYMPH # 2.1 (1.2-3.4); LYMPH % 27.1 % (22.0-35.0); MEAN CELL VOLUME 81.7 fl (80.0-105.0); MEAN CORPUSCULAR HGB CONC 31.8 g/dl (31.0-37.0); MEAN PLATELET VOLUME 9.4 fl (7.0-11.0); MONO % 12.8 % (1.0-6.0); RBC 3.23 10^6/uL (3.5-6.1); RED CELL DISTRIBUTION WIDTH 16.4 % (11.5-14.5); WHITE BLOOD COUNT 7.6 10^3/uL (4.5-11.0)
[2018-02-28 19:36] LABS: INR 1.21; PARTIAL THROMBOPLASTIN TIME 38.8 Seconds (25.1-36.5); PROTHROMBIN TIME 13.9 SECONDS (9.4-12.5)
[2018-02-28 19:39] LABS: B-TYPE NATRIURETIC PEPTIDE 330 pg/mL (0-450); TROPONIN I 0.01 ng/mL
[2018-02-28 19:41] LABS: ALB/GLOB RATIO 0.9 (1.1-1.8); ALBUMIN 3.5 g/dL (3.0-4.8); ALT/SGPT 50 U/L (7-56); AST/SGOT 57 U/L (14-36); BLOOD UREA NITROGEN 12 mg/dL (7-21); CALCIUM 9.3 mg/dL (8.4-10.5); GFR NON-AFRICAN AMERICAN > 60
[2018-02-28] MEDS ORDERED: Potassium Chloride 20 mEq/15 ml LIQ UD PO STA (19:44)
[2018-02-28] MEDS ORDERED: Potassium Chloride 20 mEq/15 ml LIQ UD PO ONE (21:00)
--- NOTE | 2018-02-28 22:22 | CP.PCM.HP ---
<Félix Gomes - Last Filed: 03/01/18 01:36> History of Present Illness - History of Present Illness History of Present Illness: Félix Gomes PGY1 History and Physical for Dr Gimenez Pt is a 62 year old female presents to the emergency department with a complaint of 3 week duration lower extremity swelling. Pt states she was treated at a rehab facility where she developed an infection and was treated with antibiotics. Pt notes the swelling has gotten worse. She denies anything which alleviates or exacerbates the swelling. Pt denies fever, chest pain, a history of CHF or DVT. Pt states she has been treated with antibiotics for while in the rehab, and is unsure why she is still having edema. A 12 point ROS was obtained and added to the HPI where appropriate. PMH: HTN, HLD, Breast CA PSH: hip surgery, ankle surgery FH: Mother 73, heart problems. Father 73, CA. SH: Denies tobacco, alcohol, illicit drugs. Allergies: denies Present on Admission - Present on Admission Any Indicators Present on Admission: No Review of Systems - Review of Systems Review of Systems: a 12 point ROS was obtained and added to the HPI where appropriate. Past Patient History - Infectious Disease Hx of Infectious Diseases: None - Tetanus Immunizations Tetanus Immunization: Unknown - Past Social History Smoking Status: Never Smoked - CARDIAC Hx Hypertension: Yes - PULMONARY Hx Respiratory Disorders: No - NEUROLOGICAL Hx Neurological Disorder: No - HEENT Hx HEENT Problems: No - RENAL Hx Chronic Kidney Disease: No - ENDOCRINE/METABOLIC Hx Endocrine Disorders: No - HEMATOLOGICAL/ONCOLOGICAL Hx Cancer: Yes (stage 4 breast CA with mets) - INTEGUMENTARY Hx Dermatological Problems: No - MUSCULOSKELETAL/RHEUMATOLOGICAL Hx Falls: No - GASTROINTESTINAL Hx Gastrointestinal Disorders: No - GENITOURINARY/GYNECOLOGICAL Hx Genitourinary Disorders: No - PSYCHIATRIC Hx Anxiety: Yes Hx Substance Use: No - SURGICAL HISTORY Hx Joint Replacement: Yes (right hip (3 screws)) Hx Mastectomy: No - ANESTHESIA Hx Anesthesia: Yes Hx Anesthesia Reactions: No Hx Malignant Hyperthermia: No Meds Allergies/Adverse Reactions: Allergies Allergy/AdvReac Type Severity Reaction Status Date / Time apple Allergy ITCHING Verified 01/29/18 13:22 Physical Exam - Constitutional Appears: Non-toxic, No Acute Distress - Head Exam Head Exam: ATRAUMATIC, NORMAL INSPECTION, NORMOCEPHALIC - Eye Exam Eye Exam: EOMI - ENT Exam ENT Exam: Mucous Membranes Moist - Respiratory Exam Respiratory Exam: Clear to Auscultation Bilateral, NORMAL BREATHING PATTERN. absent: Accessory Muscle Use, Wheezes, Respiratory Distress - Cardiovascular Exam Cardiovascular Exam: RRR, +S1, +S2. absent: Diastolic murmur, Systolic Murmur - GI/Abdominal Exam GI & Abdominal Exam: Normal Bowel Sounds, Soft - Extremities Exam Extremities exam: Positive for: full ROM, pedal edema, tenderness, pedal pulses present Additional comments: bl edema, warm to the touch - Neurological Exam Neurological exam: Alert, Oriented x3 - Skin Skin Exam: Dry, Intact, Warm Results - Vital Signs Recent Vital Signs: Last Vital Signs Temp 98.0 F 02/28/18 17:54 Pulse 61 02/28/18 18:08 Resp 16 02/28/18 18:08 BP 103/57 L 02/28/18 18:08 Pulse Ox 93 L 02/28/18 18:08 - Labs Result Diagrams: 02/28/18 19:04 02/28/18 19:04 Labs: Laboratory Results - last 24 hr 02/28/18 02/28/18 02/28/18 19:04 19:04 19:04 WBC 7.6 RBC 3.23 L Hgb 8.4 L Hct 26.4 L MCV 81.7 D MCH 26.0 MCHC 31.8 RDW 16.4 H Plt Count 305 MPV 9.4 Gran % 55.2 Lymph % (Auto) 27.1 [place] % (Auto) 12.8 H Eos % (Auto) 4.1 Baso % (Auto) 0.8 Gran # 4.22 Lymph # (Auto) 2.1 [place] # (Auto) 1.0 H Eos # (Auto) 0.3 Baso # (Auto) 0.06 PT 13.9 H INR 1.21 APTT 38.8 H Sodium 136 Potassium 3.2 L Chloride 97 L Carbon Dioxide 28 Anion Gap 14 BUN 12 Creatinine 0.6 L Est GFR ( Amer) > 60 Est GFR (Non-Af Amer) > 60 Random Glucose 123 H Calcium 9.3 Magnesium 1.8 Total Bilirubin 1.2 AST 57 H ALT 50 Alkaline Phosphatase 114 Lactate Dehydrogenase 730 H Total Creatine Kinase 45 Troponin I 0.01 D NT-Pro-B Natriuret Pep 330 Total Protein 7.5 Albumin 3.5 Globulin 4.1 Albumin/Globulin Ratio 0.9 L Assessment & Plan - Assessment and Plan (Free Text) Assessment: Pt is a 62 year old female presents to the emergency department with a complaint of 3 week duration lower extremity swelling. Pt states she was treated at a rehab facility where she developed an infection and was treated with antibiotics. Pt notes the swelling has gotten worse. Plan: LE Edema - ?cellulitis - urine cultures - blood cultures - vancomycin - procal - BL LE US, arterial and venous - elevate LE - ID consulted, Dr Rodriguez Anemia - Hgb 11.7, stable CHF - Continue with metoprolol and lisinopril. Hypertension - Continue metoprolol and lisinopril. Hypokalemia - Replace Potassium. - Follow up repeat labs in AM. History of metastatic breast cancer - Patient follows at [facility] for chemotherapy. Ppx - protonix Pt seen, examined, assessment and plan discussed with Dr Pernell Gomes PGY1 - Date & Time Date: 03/01/18 Time: 00:50 <Fauzia Gimenez - Last Filed: 03/02/18 00:52> Results - Vital Signs Recent Vital Signs: Last Vital Signs Temp 98.4 F 03/01/18 22:13 Pulse 60 03/01/18 22:13 Resp 18 03/01/18 22:13 BP 107/59 L 03/01/18 22:13 Pulse Ox 98 03/01/18 22:13 - Labs Result Diagrams: 03/01/18 06:00 03/01/18 06:00 Labs: Laboratory Results - last 24 hr 03/01/18 03/01/18 03/01/18 06:00 06:00 06:00 WBC 5.5 D RBC 3.11 L Hgb 7.8 L Hct 25.5 L MCV 82.0 MCH 25.1 MCHC 30.6 L RDW 16.6 H Plt Count 271 MPV 9.1 Gran % 42.2 L Lymph % (Auto) 38.1 H [place] % (Auto) 12.1 H Eos % (Auto) 6.5 H Baso % (Auto) 1.1 Gran # 2.34 Lymph # (Auto) 2.1 [place] # (Auto) 0.7 H Eos # (Auto) 0.4 Baso # (Auto) 0.06 Sodium 137 Potassium 3.4 L Chloride 101 Carbon Dioxide 30 Anion Gap 9 L BUN 13 Creatinine 0.8 Est GFR ( Amer) > 60 Est GFR (Non-Af Amer) > 60 Random Glucose 92 Calcium 9.0 Total Bilirubin 1.0 AST 48 H ALT 40 Alkaline Phosphatase 99 Total Protein 6.8 Albumin 2.9 L Globulin 3.9 Albumin/Globulin Ratio 0.8 L Procalcitonin < 0.05 L Attending/Attestation - Attestation I have personally seen and examined this patient.: Yes I have fully participated in the care of the patient.: Yes I have reviewed all pertinent clinical information: Yes
[2018-02-28 22:32] LABS: URINE BILIRUBIN NEGATIVE (NEGATIVE); URINE BLOOD NEGATIVE (NEGATIVE); URINE GLUCOSE (UA) NEGATIVE (NEGATIVE); URINE LEUKOCYTE ESTERASE TRACE Leu/uL (NEGATIVE); URINE PROTEIN NEGATIVE mg/dL (<30 mg/dL); URINE UROBILINOGEN 0.2 E.U./dL (<1 E.U./dL)
[2018-02-28 22:33] LABS: URINE APPEARANCE CLEAR (CLEAR); URINE COLOR YELLOW (YELLOW)
[2018-03-01 07:05] LABS: ALB/GLOB RATIO 0.8 (1.1-1.8); ALBUMIN 2.9 g/dL (3.0-4.8); ALT/SGPT 40 U/L (7-56); AST/SGOT 48 U/L (14-36); BLOOD UREA NITROGEN 13 mg/dL (7-21); GFR NON-AFRICAN AMERICAN > 60
[2018-03-01] MEDS ORDERED: Potassium Chloride 20 mEq ER Tab PO STA (07:13)
[2018-03-01 07:22] LABS: BASO # 0.06 K/mm3 (0.0-2.0); BASO % 1.1 % (0.0-3.0); EOS # 0.4 (0.0-0.7); EOS % 6.5 % (1.5-5.0); GRAN # 2.34 (1.4-6.5); GRAN % 42.2 % (50.0-68.0); HEMOGLOBIN 7.8 g/dL (12.0-16.0); LYMPH # 2.1 (1.2-3.4); LYMPH % 38.1 % (22.0-35.0); MEAN CORPUSCULAR HEMOGLOBIN 25.1 pg (25.0-35.0); MEAN CORPUSCULAR HGB CONC 30.6 g/dl (31.0-37.0); MEAN PLATELET VOLUME 9.1 fl (7.0-11.0); MONO # 0.7 (0.1-0.6); MONO % 12.1 % (1.0-6.0); RBC 3.11 10^6/uL (3.5-6.1); RED CELL DISTRIBUTION WIDTH 16.6 % (11.5-14.5); WHITE BLOOD COUNT 5.5 10^3/uL (4.5-11.0)
--- NOTE | 2018-03-01 08:40 | RAD ---
HISTORY: edema COMPARISON: Chest x-ray performed 01/29/18 TECHNIQUE: Chest, one view. FINDINGS: LUNGS: Prominent interstitial markings may be chronic. No focal consolidation. Please note that chest x-ray has limited sensitivity for the detection of pulmonary masses. PLEURA: No significant pleural effusion identified. No definite pneumothorax . CARDIOVASCULAR: Cardiomegaly. Atherosclerotic atherosclerotic calcification present. OSSEOUS STRUCTURES: Degenerative changes of the spine. VISUALIZED UPPER ABDOMEN: Unremarkable. OTHER FINDINGS: None. IMPRESSION: Cardiomegaly. Prominent interstitial markings may be chronic.
[2018-03-01] MEDS ORDERED: Potassium Chloride 20 mEq ER Tab PO ONE (10:00)
[2018-03-01] MEDS ORDERED: Vancomycin 1gm in NS 250ml 1 GM/250 ML BAG IVPB SCH (10:00)
--- NOTE | 2018-03-01 11:38 | CP.PCM.CON ---
History of Present Illness - History of Present Illness History of Present Illness: 62 year old female with PMH of breast cancer with bone metastases on chemotherapy, HTN, osteoporosis, former drug user was recently admitted in [facility] because MSSA bacteremia and she finished 4-6 weeks of antibiotics (Daptomycin). She was staying in a rehab center and the patient was doing well but the patient noted that both her feet and legs were getting swollen. She denies animal contacts, no specific trauma to the legs, no insect bites. She denies fever or chills, no nausea or vomiting, no chest pain, no SOB, no headache or dizziness, no abdominal pain, no diarrhea, no dysuria. Infectious diseases consult is reuqested to further evaluate and manage. Review of Systems - Review of Systems All systems: reviewed and no additional remarkable complaints except (as per HPI) Past Patient History - Infectious Disease Hx of Infectious Diseases: None - Tetanus Immunizations Tetanus Immunization: Unknown - Past Social History Smoking Status: Never Smoked - CARDIAC Hx Hypertension: Yes - PULMONARY Hx Respiratory Disorders: No - NEUROLOGICAL Hx Neurological Disorder: No - HEENT Hx HEENT Problems: No - RENAL Hx Chronic Kidney Disease: No - ENDOCRINE/METABOLIC Hx Endocrine Disorders: No - HEMATOLOGICAL/ONCOLOGICAL Hx Cancer: Yes (stage 4 breast CA with mets) - INTEGUMENTARY Hx Dermatological Problems: No - MUSCULOSKELETAL/RHEUMATOLOGICAL Hx Falls: No - GASTROINTESTINAL Hx Gastrointestinal Disorders: No - GENITOURINARY/GYNECOLOGICAL Hx Genitourinary Disorders: No - PSYCHIATRIC Hx Anxiety: Yes Hx Substance Use: No - SURGICAL HISTORY Hx Joint Replacement: Yes (right hip (3 screws)) Hx Mastectomy: No - ANESTHESIA Hx Anesthesia: Yes Hx Anesthesia Reactions: No Hx Malignant Hyperthermia: No Meds Allergies/Adverse Reactions: Allergies Allergy/AdvReac Type Severity Reaction Status Date / Time apple Allergy ITCHING Verified 01/29/18 13:22 - Medications Medications: Current Medications Atorvastatin Calcium (Lipitor) 40 mg PO DIN OLGA Vancomycin HCl (Vancomycin 1gm) 1 gm in 250 mls @ 167 mls/hr IVPB DAILY OLGA; Protocol Lisinopril (Zestril) 10 mg PO DAILY OLGA Metoprolol Tartrate (Lopressor) 50 mg PO BID OLGA Physical Exam - Constitutional Appears: No Acute Distress, Chronically Ill - Head Exam Head Exam: NORMAL INSPECTION - Neck Exam Neck exam: Negative for: Meningismus - Respiratory Exam Respiratory Exam: Decreased Breath Sounds. absent: Rales - Cardiovascular Exam Cardiovascular Exam: +S1, +S2 - GI/Abdominal Exam GI & Abdominal Exam: Soft. absent: Tenderness - Extremities Exam Additional comments: both feet with swelling noted but no erythema, no tenderness, no open wounds, no discharge or bleeding Results - Vital Signs Recent Vital Signs: Last Vital Signs Temp 98 F 02/28/18 23:00 Pulse 60 02/28/18 23:00 Resp 18 02/28/18 23:32 BP 110/62 02/28/18 23:00 Pulse Ox 98 02/28/18 23:00 - Labs Result Diagrams: 03/01/18 06:00 03/01/18 06:00 Labs: Laboratory Results - last 24 hr 02/28/18 02/28/18 02/28/18 19:04 19:04 19:04 WBC 7.6 RBC 3.23 L Hgb 8.4 L Hct 26.4 L MCV 81.7 D MCH 26.0 MCHC 31.8 RDW 16.4 H Plt Count 305 MPV 9.4 Gran % 55.2 Lymph % (Auto) 27.1 [place] % (Auto) 12.8 H Eos % (Auto) 4.1 Baso % (Auto) 0.8 Gran # 4.22 Lymph # (Auto) 2.1 [place] # (Auto) 1.0 H Eos # (Auto) 0.3 Baso # (Auto) 0.06 PT 13.9 H INR 1.21 APTT 38.8 H D-Dimer, Quantitative Sodium 136 Potassium 3.2 L Chloride 97 L Carbon Dioxide 28 Anion Gap 14 BUN 12 Creatinine 0.6 L Est GFR ( Amer) > 60 Est GFR (Non-Af Amer) > 60 Random Glucose 123 H Calcium 9.3 Magnesium 1.8 Total Bilirubin 1.2 AST 57 H ALT 50 Alkaline Phosphatase 114 Lactate Dehydrogenase 730 H Total Creatine Kinase 45 Troponin I 0.01 D NT-Pro-B Natriuret Pep 330 Total Protein 7.5 Albumin 3.5 Globulin 4.1 Albumin/Globulin Ratio 0.9 L Urine Color Urine Appearance Urine pH Ur Specific [place] Urine Protein Urine Glucose (UA) Urine Ketones Urine Blood Urine Nitrate Urine Bilirubin Urine Urobilinogen Ur Leukocyte Esterase Urine RBC Urine WBC Ur Epithelial Cells 02/28/18 02/28/18 22:25 22:28 WBC RBC Hgb Hct MCV MCH MCHC RDW Plt Count MPV Gran % Lymph % (Auto) [place] % (Auto) Eos % (Auto) Baso % (Auto) Gran # Lymph # (Auto) [place] # (Auto) Eos # (Auto) Baso # (Auto) PT INR APTT D-Dimer, Quantitative 873 H Sodium Potassium Chloride Carbon Dioxide Anion Gap BUN Creatinine Est GFR ( Amer) Est GFR (Non-Af Amer) Random Glucose Calcium Magnesium Total Bilirubin AST ALT Alkaline Phosphatase Lactate Dehydrogenase Total Creatine Kinase Troponin I NT-Pro-B Natriuret Pep Total Protein Albumin Globulin Albumin/Globulin Ratio Urine Color Yellow Urine Appearance Clear Urine pH 6.0 Ur Specific [place] 1.010 Urine Protein Negative Urine Glucose (UA) Negative Urine Ketones Negative Urine Blood Negative Urine Nitrate Negative Urine Bilirubin Negative Urine Urobilinogen 0.2 Ur Leukocyte Esterase Trace H Urine RBC TEST NOT PERFORMED Urine WBC 2 - 5 Ur Epithelial Cells 6 - 8 Assessment & Plan - Assessment and Plan (Free Text) Plan: Assessment bilateral lower extremity edema probably due to venous stasis, no evidence of cellulitis history of severe sepsis due to methicillin-sensitive Staph aureus bacteremia, S/P treatment with 4-6 weeks of IV antibiotics elevated troponins R/O NSTEMI metastatic breast cancer on chemotherapy history of maculopapular rash with eosinophilia, consider allergic reaction R/O drug-induced history of sepsis due to Methicillin-sensitive Staph aureus bacteremia HTN osteoporosis former drug user Plan will monitor off antibiotics follow up blood cx will need work up for leg swelling - medical team to do work up will monitor clinically
--- NOTE | 2018-03-01 13:25 | CARD ---
APPROVED REPORT Date of service: 02/28/2018 EKG Measurement Heart [id number] <Conclusion> Normal sinus rhythm T wave abnormality, consider anterolateral ischemia Abnormal ECG
[2018-03-01] MEDS ORDERED: oxyCODONE 20 mg ER Tab (oxyCONTIN) PO PRN (13:40)
--- NOTE | 2018-03-01 14:53 | CP.PCM.PN ---
<Andres Martinez - Last Filed: 03/01/18 16:41> Subjective - Date & Time of Evaluation Date of Evaluation: 03/01/18 Time of Evaluation: 14:48 - Subjective Subjective: Andres Martinez DO PGY-1 Medicine Progress Note for Dr. Silva Pt was seen and examined this AM at bedside. Pt denies any acute overnight ev ents. She states that her leg swelling is still the same from when it came in and has been like this since she was [place] from the rehab facility yesterday. She is currently denying any fevers, chills, chest pain, palpitions, SOB, cough, n/v, abd pain, dysuria, hematuria or frequency. She denies any other acute complaints at this time. Objective - Vital Signs/Intake and Output Vital Signs (last 24 hours): Temp Pulse Resp BP Pulse Ox 98 F 58 L 18 89/46 L 97 03/01/18 14:39 03/01/18 14:39 03/01/18 14:39 03/01/18 14:39 03/01/18 14:39 Intake and Output: 03/01/18 03/01/18 06:59 18:59 Intake Total 0 Balance 0 - Medications Medications: Current Medications Atorvastatin Calcium (Lipitor) 40 mg PO DIN [facility] Furosemide (Lasix) 20 mg IVP Q12 [facility] Last Admin: 03/01/18 11:24 Dose: 20 mg Lisinopril (Zestril) 10 mg PO DAILY [facility] Metoprolol Tartrate (Lopressor) 50 mg PO BID [facility] Last Admin: 03/01/18 11:27 Dose: 50 mg Oxycodone HCl (Oxycodone Immediate Release Tab) 30 mg PO Q6H PRN PRN Reason: Pain, severe (8-10) - Labs Labs: 03/01/18 06:00 03/01/18 06:00 PT 13.9 SECONDS (9.4-12.5) H 02/28/18 19:04 INR 1.21 02/28/18 19:04 APTT 38.8 Seconds (25.1-36.5) H 02/28/18 19:04 - Constitutional Appears: Well, Non-toxic, No Acute Distress - Head Exam Head Exam: ATRAUMATIC, NORMAL INSPECTION, NORMOCEPHALIC - Eye Exam Eye Exam: EOMI, Normal appearance, PERRL - Respiratory Exam Respiratory Exam: Clear to Ausculation Bilateral, NORMAL BREATHING PATTERN. absent: Accessory Muscle Use, Decreased Breath Sounds, Rales, Rhonchi, Wheezes, Respiratory Distress, Stridor - Cardiovascular Exam Cardiovascular Exam: RRR, +S1, +S2. absent: Gallop, Rubs - GI/Abdominal Exam GI & Abdominal Exam: Soft, Normal Bowel Sounds. absent: Tenderness - Extremities Exam Extremities Exam: Full ROM, Pedal Edema (2+). absent: Joint Swelling, Tenderness Additional comments: b/l edema and warm to touch - Back Exam Back Exam: NORMAL INSPECTION. absent: CVA tenderness (L), CVA tenderness (R) - Neurological Exam Neurological Exam: Alert, Awake, Oriented x3 - Psychiatric Exam Psychiatric exam: Normal Affect, Normal Mood - Skin Skin Exam: Dry, Normal Color, Warm Assessment and Plan - Assessment and Plan (Free Text) Assessment: Pt is a 62 year old female presents to the emergency department with a complaint of 3 week duration lower extremity swelling. Pt states she was treated at a rehab facility where she developed an infection and was treated with antibiotics. Pt notes the swelling is the same as admission. Plan: 1. LE Edema - ?cellulitis - urine cultures - blood cultures - vancomycin - per ID will attempt to monitor off abx - procal - BL LE US: (-) for DVT - elevate LE - ID consulted, Dr Rodriguez - Lasix 20 IV BID - PT eval 2. Anemia - Hgb 7.8 - f/u retic count - Will continue to monitor 3. CHF - Continue with metoprolol and lisinopril. - Lasix 20 IV BID 4. Hypertension - Continue metoprolol and lisinopril. 5. Hypokalemia - Replace Potassium. - Follow up repeat labs in AM. 6. History of metastatic breast cancer - Patient follows at [facility] for chemotherapy. 7. Ppx - protonix Pt seen, examined, assessment and plan discussed with Dr Shira Martinez DO, Internal Medicine Resident PGY1 <Ignacio Silva - Last Filed: 03/02/18 13:46> Objective - Vital Signs/Intake and Output Vital Signs (last 24 hours): Temp Pulse Resp BP Pulse Ox 98.1 F 62 20 123/69 97 03/02/18 06:00 03/02/18 10:23 03/02/18 06:00 03/02/18 10:23 03/02/18 06:00 Intake and Output: 03/02/18 03/02/18 06:59 18:59 Intake Total 740 Balance 740 - Medications Medications: Current Medications Atorvastatin Calcium (Lipitor) 40 mg PO DIN [facility] Last Admin: 03/01/18 17:34 Dose: 40 mg Furosemide (Lasix) 20 mg PO DAILY [facility] Gabapentin (Neurontin) 300 mg PO Q8 [facility]; Protocol Last Admin: 03/02/18 13:18 Dose: 300 mg Lisinopril (Zestril) 10 mg PO DAILY [facility] Last Admin: 03/02/18 10:23 Dose: 10 mg Metoprolol Tartrate (Lopressor) 50 mg PO BID [facility] Last Admin: 03/02/18 10:22 Dose: 50 mg Oxycodone HCl (Oxycodone Immediate Release Tab) 30 mg PO Q6H PRN PRN Reason: Pain, severe (8-10) Last Admin: 03/02/18 11:15 Dose: 30 mg - Labs Labs: 03/02/18 06:30 03/02/18 06:30 PT 13.9 SECONDS (9.4-12.5) H 02/28/18 19:04 INR 1.21 02/28/18 19:04 APTT 38.8 Seconds (25.1-36.5) H 02/28/18 19:04 Attending/Attestation - Attestation I have personally seen and examined this patient.: Yes I have fully participated in the care of the patient.: Yes I have reviewed all pertinent clinical information, including history, physical exam and plan: Yes Notes (Text): 03/02/18 13:45 Medical record note made by the resident after discussion with my direction and input after the patient was personally seen and examined by me. I have reviewed the chart and agree that the record accurately reflects by personal performance of the history, physical exam, data review, and medical decision-making, in the course for the patient. I have also personally directed the plan of care.
[2018-03-01] MEDS: oxyCODONE 30 mg Immediate Release Tab PO PRN ×2 (15:07→21:42)
[2018-03-02] MEDS: oxyCODONE 30 mg Immediate Release Tab PO PRN ×4 (04:52→23:15)
[2018-03-02 06:44] LABS: BASO # 0.07 K/mm3 (0.0-2.0); EOS # 0.4 (0.0-0.7); EOS % 5.8 % (1.5-5.0); GRAN # 3.23 (1.4-6.5); GRAN % 47.1 % (50.0-68.0); LYMPH # 2.4 (1.2-3.4); LYMPH % 35.2 % (22.0-35.0); MEAN CELL VOLUME 82.7 fl (80.0-105.0); MEAN CORPUSCULAR HEMOGLOBIN 25.6 pg (25.0-35.0); MEAN PLATELET VOLUME 9.2 fl (7.0-11.0); MONO # 0.8 (0.1-0.6); MONO % 10.9 % (1.0-6.0); RBC 3.12 10^6/uL (3.5-6.1); RED CELL DISTRIBUTION WIDTH 16.3 % (11.5-14.5); WHITE BLOOD COUNT 6.9 10^3/uL (4.5-11.0)
[2018-03-02 07:43] LABS: ALB/GLOB RATIO 0.8 (1.1-1.8); ALBUMIN 3.2 g/dL (3.0-4.8); ALT/SGPT 40 U/L (7-56); AST/SGOT 51 U/L (14-36); BLOOD UREA NITROGEN 12 mg/dL (7-21); CALCIUM 9.1 mg/dL (8.4-10.5); GFR NON-AFRICAN AMERICAN > 60
--- NOTE | 2018-03-02 11:34 | CP.PCM.PN ---
Subjective - Date & Time of Evaluation Date of Evaluation: 03/02/18 Time of Evaluation: 08:50 - Subjective Subjective: Comfortable, still with feet swelling, no fevers. Objective - Vital Signs/Intake and Output Vital Signs (last 24 hours): Temp Pulse Resp BP Pulse Ox 98.7 F 70 18 109/53 L 95 03/01/18 07:00 03/01/18 07:00 03/01/18 07:00 03/01/18 11:24 03/01/18 07:00 Intake and Output: 03/01/18 03/01/18 06:59 18:59 Intake Total 0 Balance 0 - Medications Medications: Current Medications Atorvastatin Calcium (Lipitor) 40 mg PO DIN [facility] Furosemide (Lasix) 20 mg IVP Q12 [facility] Last Admin: 03/01/18 11:24 Dose: 20 mg Lisinopril (Zestril) 10 mg PO DAILY [facility] Metoprolol Tartrate (Lopressor) 50 mg PO BID [facility] Last Admin: 03/01/18 11:27 Dose: 50 mg - Labs Labs: 03/01/18 06:00 03/01/18 06:00 PT 13.9 SECONDS (9.4-12.5) H 02/28/18 19:04 INR 1.21 02/28/18 19:04 APTT 38.8 Seconds (25.1-36.5) H 02/28/18 19:04 - Constitutional Appears: Chronically Ill - Head Exam Head Exam: NORMAL INSPECTION - Respiratory Exam Respiratory Exam: Decreased Breath Sounds - Cardiovascular Exam Cardiovascular Exam: +S1, +S2 - GI/Abdominal Exam GI & Abdominal Exam: Soft. absent: Tenderness Assessment and Plan - Assessment and Plan (Free Text) Plan: Assessment bilateral lower extremity edema probably due to venous stasis, no evidence of cellulitis history of severe sepsis due to methicillin-sensitive Staph aureus bacteremia, S/P treatment with 4-6 weeks of IV antibiotics elevated troponins R/O NSTEMI metastatic breast cancer on chemotherapy history of maculopapular rash with eosinophilia, consider allergic reaction R/O drug-induced history of sepsis due to Methicillin-sensitive Staph aureus bacteremia HTN osteoporosis former drug user Plan will continue to monitor off antibiotics blood cx this admission are negative so far will need work up for leg swelling - medical team to do work up will continue to monitor clinically
--- NOTE | 2018-03-02 14:51 | CP.PCM.PN ---
<Andres Martinez - Last Filed: 03/02/18 16:19> Subjective - Date & Time of Evaluation Date of Evaluation: 03/02/18 Time of Evaluation: 14:53 - Subjective Subjective: Andres Martinez DO PGY-1 Medicine Progress Note for Dr. Silva Pt was seen and examined this AM at bedside. Pt denies any acute overnight ev ents. She states that her leg swelling is much improved from yesterday and is no longer bothering her. She is currently denying any fevers, chills, chest pain, palpitions, SOB, cough, n/v, abd pain, dysuria, hematuria or frequency. She denies any other acute complaints at this time. Objective - Vital Signs/Intake and Output Vital Signs (last 24 hours): Temp Pulse Resp BP Pulse Ox 98.1 F 62 20 123/69 97 03/02/18 06:00 03/02/18 10:23 03/02/18 06:00 03/02/18 10:23 03/02/18 06:00 Intake and Output: 03/02/18 03/02/18 06:59 18:59 Intake Total 740 Balance 740 - Medications Medications: Current Medications Atorvastatin Calcium (Lipitor) 40 mg PO DIN [facility] Last Admin: 03/01/18 17:34 Dose: 40 mg Furosemide (Lasix) 20 mg PO DAILY [facility] Gabapentin (Neurontin) 300 mg PO Q8 [facility]; Protocol Last Admin: 03/02/18 13:18 Dose: 300 mg Lisinopril (Zestril) 10 mg PO DAILY [facility] Last Admin: 03/02/18 10:23 Dose: 10 mg Metoprolol Tartrate (Lopressor) 50 mg PO BID [facility] Last Admin: 03/02/18 10:22 Dose: 50 mg Oxycodone HCl (Oxycodone Immediate Release Tab) 30 mg PO Q6H PRN PRN Reason: Pain, severe (8-10) Last Admin: 03/02/18 11:15 Dose: 30 mg - Labs Labs: 03/02/18 06:30 03/02/18 06:30 PT 13.9 SECONDS (9.4-12.5) H 02/28/18 19:04 INR 1.21 02/28/18 19:04 APTT 38.8 Seconds (25.1-36.5) H 02/28/18 19:04 - Constitutional Appears: Well, Non-toxic, No Acute Distress - Head Exam Head Exam: ATRAUMATIC, NORMAL INSPECTION, NORMOCEPHALIC - Eye Exam Eye Exam: EOMI, Normal appearance, PERRL - Respiratory Exam Respiratory Exam: Clear to Ausculation Bilateral, NORMAL BREATHING PATTERN. absent: Accessory Muscle Use, Decreased Breath Sounds, Rales, Rhonchi, Wheezes, Respiratory Distress, Stridor - Cardiovascular Exam Cardiovascular Exam: RRR, +S1, +S2. absent: Gallop, Rubs, Murmur - GI/Abdominal Exam GI & Abdominal Exam: Soft, Normal Bowel Sounds. absent: Tenderness - Extremities Exam Extremities Exam: Full ROM, Normal Capillary Refill, Pedal Edema (1+). absent: Calf Tenderness - Back Exam Back Exam: NORMAL INSPECTION. absent: CVA tenderness (L), CVA tenderness (R) - Neurological Exam Neurological Exam: Alert, Awake, Oriented x3 - Psychiatric Exam Psychiatric exam: Normal Affect, Normal Mood - Skin Skin Exam: Dry, Intact, Normal Color, Warm Assessment and Plan - Assessment and Plan (Free Text) Assessment: Pt is a 62 year old female presents to the emergency department with a complaint of 3 week duration lower extremity swelling. Pt states she was treated at a rehab facility where she developed an infection and was treated with antibiotics. Pt notes the swelling is improved from admission. Pending home PT per case management. Plan: 1. LE Edema - ?cellulitis - urine cultures - no growth - blood cultures - no growth - vancomycin - per ID will attempt to monitor off abx - procal - low - BL LE US: (-) for DVT - elevate LE - ID consulted, Dr Rodriguez - Lasix 20 PO QD - PT eval - Home with home services, - Case management - pending home services 2. Anemia - Hgb improved to 8.0 - retic count - high at 2.03 - Will continue to monitor 3. CHF - Continue with metoprolol and lisinopril. - Lasix 20 PO QD 4. Hypertension - Continue metoprolol and lisinopril. 5. Hypokalemia: Resolved - Follow up repeat labs in AM. 6. History of metastatic breast cancer - Patient follows at [facility] for chemotherapy. 7. Ppx - protonix Dispo: Pending home services set up by case management Pt seen, examined, assessment and plan discussed with Dr Shira Martinez DO, Internal Medicine Resident PGY1 <Ignacio Silva - Last Filed: 03/03/18 18:41> Objective - Vital Signs/Intake and Output Vital Signs (last 24 hours): Temp Pulse Resp BP Pulse Ox 98.7 F 60 18 120/52 L 99 03/03/18 14:00 03/03/18 14:00 03/03/18 14:00 03/03/18 14:00 03/03/18 14:00 Intake and Output: 03/03/18 03/03/18 06:59 18:59 Intake Total 840 Output Total 500 Balance 340 - Labs Labs: 03/03/18 06:15 03/03/18 06:15 PT 13.9 SECONDS (9.4-12.5) H 02/28/18 19:04 INR 1.21 02/28/18 19:04 APTT 38.8 Seconds (25.1-36.5) H 02/28/18 19:04 Attending/Attestation - Attestation I have personally seen and examined this patient.: Yes I have fully participated in the care of the patient.: Yes I have reviewed all pertinent clinical information, including history, physical exam and plan: Yes Notes (Text): 03/03/18 18:41 Medical record note made by the resident after discussion with my direction and input after the patient was personally seen and examined by me. I have reviewed the chart and agree that the record accurately reflects by personal performance of the history, physical exam, data review, and medical decision-making, in the course for the patient. I have also personally directed the plan of care
[2018-03-03] MEDS: oxyCODONE 30 mg Immediate Release Tab PO PRN ×2 (05:26→11:21)
[2018-03-03 06:44] LABS: BASO # 0.07 K/mm3 (0.0-2.0); BASO % 0.9 % (0.0-3.0); EOS # 0.5 (0.0-0.7); EOS % 6.5 % (1.5-5.0); GRAN # 3.26 (1.4-6.5); GRAN % 43.5 % (50.0-68.0); HEMOGLOBIN 8.1 g/dL (12.0-16.0); LYMPH # 2.6 (1.2-3.4); LYMPH % 35.2 % (22.0-35.0); MEAN CELL VOLUME 82.3 fl (80.0-105.0); MEAN CORPUSCULAR HEMOGLOBIN 25.6 pg (25.0-35.0); MEAN PLATELET VOLUME 9.1 fl (7.0-11.0); MONO % 13.9 % (1.0-6.0); RBC 3.17 10^6/uL (3.5-6.1); RED CELL DISTRIBUTION WIDTH 16.3 % (11.5-14.5); WHITE BLOOD COUNT 7.5 10^3/uL (4.5-11.0)
[2018-03-03 07:05] LABS: ALB/GLOB RATIO 0.8 (1.1-1.8); ALBUMIN 3.3 g/dL (3.0-4.8); ALT/SGPT 33 U/L (7-56); AST/SGOT 56 U/L (14-36); BLOOD UREA NITROGEN 12 mg/dL (7-21); CALCIUM 9.2 mg/dL (8.4-10.5); GFR NON-AFRICAN AMERICAN > 60
[2018-03-03 07:54] VITALS: RESP 18
[2018-03-03] MEDS ORDERED: Potassium Chloride 20 mEq ER Tab PO STA (08:22)
--- NOTE | 2018-03-03 12:06 | CP.PCM.PN ---
Subjective - Date & Time of Evaluation Date of Evaluation: 03/03/18 Time of Evaluation: 08:10 - Subjective Subjective: No fevers, no more feet swelling, no abdominal pain, no nausea. Objective - Vital Signs/Intake and Output Vital Signs (last 24 hours): Temp Pulse Resp BP Pulse Ox 98.1 F 62 20 123/69 97 03/02/18 06:00 03/02/18 10:23 03/02/18 06:00 03/02/18 10:23 03/02/18 06:00 Intake and Output: 03/02/18 03/02/18 06:59 18:59 Intake Total 740 Balance 740 - Medications Medications: Current Medications Atorvastatin Calcium (Lipitor) 40 mg PO DIN [facility] Last Admin: 03/01/18 17:34 Dose: 40 mg Furosemide (Lasix) 20 mg IVP Q12 [facility] Last Admin: 03/02/18 10:22 Dose: 20 mg Lisinopril (Zestril) 10 mg PO DAILY [facility] Last Admin: 03/02/18 10:23 Dose: 10 mg Metoprolol Tartrate (Lopressor) 50 mg PO BID [facility] Last Admin: 03/02/18 10:22 Dose: 50 mg Oxycodone HCl (Oxycodone Immediate Release Tab) 30 mg PO Q6H PRN PRN Reason: Pain, severe (8-10) Last Admin: 03/02/18 11:15 Dose: 30 mg - Labs Labs: 03/02/18 06:30 03/02/18 06:30 PT 13.9 SECONDS (9.4-12.5) H 02/28/18 19:04 INR 1.21 02/28/18 19:04 APTT 38.8 Seconds (25.1-36.5) H 02/28/18 19:04 - Constitutional Appears: No Acute Distress, Chronically Ill - Head Exam Head Exam: NORMAL INSPECTION - Respiratory Exam Respiratory Exam: Decreased Breath Sounds - Cardiovascular Exam Cardiovascular Exam: +S1, +S2 - GI/Abdominal Exam GI & Abdominal Exam: Soft. absent: Tenderness Assessment and Plan - Assessment and Plan (Free Text) Plan: Assessment bilateral lower extremity edema probably due to venous stasis, no evidence of cellulitis history of severe sepsis due to methicillin-sensitive Staph aureus bacteremia, S/P treatment with 4-6 weeks of IV antibiotics elevated troponins R/O NSTEMI metastatic breast cancer on chemotherapy history of maculopapular rash with eosinophilia, consider allergic reaction R/O drug-induced history of sepsis due to Methicillin-sensitive Staph aureus bacteremia HTN osteoporosis former drug user Plan will continue to monitor off antibiotics blood cx this admission are negative will continue to monitor clinically
--- NOTE | 2018-03-03 13:00 | CP.PCM.DIS ---
<Srinivasa Posadas - Last Filed: 03/03/18 13:48> Provider - Provider Date of Admission: 03/01/18 11:17 Attending physician: Ignacio Sivla MD Primary care physician: Dr. Crooks Time Spent in preparation of Discharge (in minutes): 45 Hospital Course - Lab Results Lab Results: Micro Results 03/01/18 07:30 Blood-Venous Blood Culture - Preliminary NO GROWTH AFTER 48 HOURS 03/01/18 07:00 Blood-Venous Blood Culture - Preliminary NO GROWTH AFTER 48 HOURS 02/28/18 22:25 Urine Urine Culture - Final No Growth (<1,000 CFU/ML) Most Recent Lab Values WBC 7.5 10^3/uL (4.5-11.0) 03/03/18 06:15 RBC 3.17 10^6/uL (3.5-6.1) L 03/03/18 06:15 Hgb 8.1 g/dL (12.0-16.0) L 03/03/18 06:15 Hct 26.1 % (36.0-48.0) L 03/03/18 06:15 MCV 82.3 fl (80.0-105.0) 03/03/18 06:15 MCH 25.6 pg (25.0-35.0) 03/03/18 06:15 MCHC 31.0 g/dl (31.0-37.0) 03/03/18 06:15 RDW 16.3 % (11.5-14.5) H 03/03/18 06:15 Plt Count 285 10^3/uL (120.0-450.0) 03/03/18 06:15 MPV 9.1 fl (7.0-11.0) 03/03/18 06:15 Gran % 43.5 % (50.0-68.0) L 03/03/18 06:15 Lymph % (Auto) 35.2 % (22.0-35.0) H 03/03/18 06:15 [place] % (Auto) 13.9 % (1.0-6.0) H 03/03/18 06:15 Eos % (Auto) 6.5 % (1.5-5.0) H 03/03/18 06:15 Baso % (Auto) 0.9 % (0.0-3.0) 03/03/18 06:15 Gran # 3.26 (1.4-6.5) 03/03/18 06:15 Lymph # (Auto) 2.6 (1.2-3.4) 03/03/18 06:15 [place] # (Auto) 1.0 (0.1-0.6) H 03/03/18 06:15 Eos # (Auto) 0.5 (0.0-0.7) 03/03/18 06:15 Baso # (Auto) 0.07 K/mm3 (0.0-2.0) 03/03/18 06:15 Retic Count 2.03 % (0.5-1.5) H 03/02/18 06:30 PT 13.9 SECONDS (9.4-12.5) H 02/28/18 19:04 INR 1.21 02/28/18 19:04 APTT 38.8 Seconds (25.1-36.5) H 02/28/18 19:04 D-Dimer, Quantitative 873 ng/mlDDU (0-243) H 02/28/18 22:28 Sodium 135 mmol/L (132-148) 03/03/18 06:15 Potassium 3.5 mmol/L (3.6-5.0) L 03/03/18 06:15 Chloride 100 mmol/L (98-107) 03/03/18 06:15 Carbon Dioxide 29 mmol/L (21-33) 03/03/18 06:15 Anion Gap 10 (10-20) 03/03/18 06:15 BUN 12 mg/dL (7-21) 03/03/18 06:15 Creatinine 0.8 mg/dl (0.7-1.2) 03/03/18 06:15 Est GFR ( Amer) > 60 03/03/18 06:15 Est GFR (Non-Af Amer) > 60 03/03/18 06:15 Random Glucose 86 mg/dL (70-110) 03/03/18 06:15 Calcium 9.2 mg/dL (8.4-10.5) 03/03/18 06:15 Magnesium 1.8 mg/dL (1.7-2.2) 02/28/18 19:04 Total Bilirubin 1.0 mg/dL (0.2-1.3) 03/03/18 06:15 AST 56 U/L (14-36) H 03/03/18 06:15 ALT 33 U/L (7-56) 03/03/18 06:15 Alkaline Phosphatase 103 U/L (38-126) 03/03/18 06:15 Lactate Dehydrogenase 730 U/L (333-699) H 02/28/18 19:04 Total Creatine Kinase 45 U/L (35-230) 02/28/18 19:04 Troponin I 0.01 ng/mL D 02/28/18 19:04 NT-Pro-B Natriuret Pep 330 pg/mL (0-450) 02/28/18 19:04 Total Protein 7.4 g/dL (5.8-8.3) 03/03/18 06:15 Albumin 3.3 g/dL (3.0-4.8) 03/03/18 06:15 Globulin 4.1 gm/dL 03/03/18 06:15 Albumin/Globulin Ratio 0.8 (1.1-1.8) L 03/03/18 06:15 Procalcitonin < 0.05 NG/ML (0.19-0.49) L 03/01/18 06:00 Urine Color Yellow (YELLOW) 02/28/18 22:25 Urine Appearance Clear (CLEAR) 02/28/18 22:25 Urine pH 6.0 (4.7-8.0) 02/28/18 22:25 Ur Specific [place] 1.010 (1.005-1.035) 02/28/18 22:25 Urine Protein Negative mg/dL (<30 mg/dL) 02/28/18 22:25 Urine Glucose (UA) Negative mg/dL (NEGATIVE) 02/28/18 22:25 Urine Ketones Negative mg/dL (NEGATIVE) 02/28/18 22:25 Urine Blood Negative (NEGATIVE) 02/28/18 22:25 Urine Nitrate Negative (NEGATIVE) 02/28/18 22:25 Urine Bilirubin Negative (NEGATIVE) 02/28/18 22:25 Urine Urobilinogen 0.2 E.U./dL (<1 E.U./dL) 02/28/18 22:25 Ur Leukocyte Esterase Trace [place]/uL (NEGATIVE) H 02/28/18 22:25 Urine RBC TEST NOT PERFORMED 02/28/18 22:25 Urine WBC 2 - 5 /hpf (0-6) 02/28/18 22:25 Ur Epithelial Cells 6 - 8 /hpf (0-5) 02/28/18 22:25 - Hospital Course Hospital Course: Upon admission: Pt is a 62 year old female presents to the emergency department with a complaint of 3 week duration lower extremity swelling. Pt states she was treated at a rehab facility where she developed an infection and was treated with antibiotics. Pt notes the swelling has gotten worse. She denies anything which alleviates or exacerbates the swelling. Pt denies fever, chest pain, a history of CHF or DVT. Pt states she has been treated with antibiotics for while in the rehab, and is unsure why she is still having edema. A 12 point ROS was obtained and added to the HPI where appropriate. Hospital course: Pt was evaluated for cellulitis, DVT, anemia, CHF, and hypertension. Urine cultures and blood cultures were negative. She was started on vancomycin initially however was monitored off of her antibiotics as procalcitonin was within normal limits. Lower extremity ultrasound was negative for DVT bilaterally. She was treated for fluid overload with lasix daily. She refused evaluation and treatment for her anemia. She was evaluated by physical therapy who recommended home services. Upon discharge: Pt reported no acute complaints. She was ambulating well and undergoing physical therapy and tolerating her diet. She is hemodynamically stable. He LE swelling has improved. She denies 12 point ROS. She will be discharged home with home health services 3-5 times a week for 2 weeks. Discharge Exam - Head Exam Head Exam: ATRAUMATIC, NORMAL INSPECTION - Eye Exam Eye Exam: EOMI, Normal appearance - ENT Exam ENT Exam: Mucous Membranes Dry - Respiratory Exam Respiratory Exam: NORMAL BREATHING PATTERN. absent: Accessory Muscle Use, Rhonchi, Wheezes, Respiratory Distress - Cardiovascular Exam Cardiovascular Exam: REGULAR RHYTHM, +S1, +S2 - GI/Abdominal Exam GI & Abdominal Exam: Normal Bowel Sounds. absent: Rigid - Extremities Exam Extremities exam: normal inspection - Back Exam Back exam: NORMAL INSPECTION - Neurological Exam Neurological exam: Alert, CN II-XII Intact, Oriented x3 - Psychiatric Exam Psychiatric exam: Normal Affect, Normal Mood - Skin Skin Exam: Dry, Intact, Warm Discharge Plan - Discharge Medications Prescriptions: RX: Atorvastatin [Lipitor] 40 mg PO DIN #14 tab RX: Docusate [Colace] 100 mg PO TID PRN #30 cap PRN Reason: Constipation Furosemide [Lasix] 20 mg PO Q12 #28 tablet RX: Gabapentin [Neurontin] 300 mg PO TID #42 cap RX: Lisinopril [Zestril] 10 mg PO DAILY #14 tab RX: Metoprolol Tartrate [Lopressor] 50 mg PO BID #28 tab RX: Pantoprazole [Protonix EC Tab] 40 mg PO ACB #14 ect - Follow Up Plan Condition: STABLE Disposition: HOME/ ROUTINE Instructions: Heart Healthy Diet, Swelling, Chronic Pain, Hip Pain Additional Instructions: Follow up with primary care provider, Dr Crooks for (1) this hospitalization, (2) your chronic anemia with baseline hemoglobin 8. Patient refuses anemia workup while at the hospital and pt does not have symptomatic anemia. We have stopped your aspirin because of your moderate anemia. Please follow up with your primary care doctor when to restart the aspirin Follow up with Dr. Dr. Charles at [facility] for chemotherapy Please continue to take the same medications that you were taking at home You will be discharged home with health services 3-5 times a week for 2 weeks. Please return to local ER if symptoms return or worsen Referrals: Mellissa Crooks MD [Staff Provider] - <Ignacio Silva - Last Filed: 03/03/18 18:41> Provider - Provider Date of Admission: 03/01/18 11:17 Attending physician: Ignacio Silva MD Primary care physician: NO [facility] PROVIDER Hospital Course - Lab Results Lab Results: Micro Results 03/01/18 07:30 Blood-Venous Blood Culture - Preliminary NO GROWTH AFTER 48 HOURS 03/01/18 07:00 Blood-Venous Blood Culture - Preliminary NO GROWTH AFTER 48 HOURS 02/28/18 22:25 Urine Urine Culture - Final No Growth (<1,000 CFU/ML) Most Recent Lab Values WBC 7.5 10^3/uL (4.5-11.0) 03/03/18 06:15 RBC 3.17 10^6/uL (3.5-6.1) L 03/03/18 06:15 Hgb 8.1 g/dL (12.0-16.0) L 03/03/18 06:15 Hct 26.1 % (36.0-48.0) L 03/03/18 06:15 MCV 82.3 fl (80.0-105.0) 03/03/18 06:15 MCH 25.6 pg (25.0-35.0) 03/03/18 06:15 MCHC 31.0 g/dl (31.0-37.0) 03/03/18 06:15 RDW 16.3 % (11.5-14.5) H 03/03/18 06:15 Plt Count 285 10^3/uL (120.0-450.0) 03/03/18 06:15 MPV 9.1 fl (7.0-11.0) 03/03/18 06:15 Gran % 43.5 % (50.0-68.0) L 03/03/18 06:15 Lymph % (Auto) 35.2 % (22.0-35.0) H 03/03/18 06:15 [place] % (Auto) 13.9 % (1.0-6.0) H 03/03/18 06:15 Eos % (Auto) 6.5 % (1.5-5.0) H 03/03/18 06:15 Baso % (Auto) 0.9 % (0.0-3.0) 03/03/18 06:15 Gran # 3.26 (1.4-6.5) 03/03/18 06:15 Lymph # (Auto) 2.6 (1.2-3.4) 03/03/18 06:15 [place] # (Auto) 1.0 (0.1-0.6) H 03/03/18 06:15 Eos # (Auto) 0.5 (0.0-0.7) 03/03/18 06:15 Baso # (Auto) 0.07 K/mm3 (0.0-2.0) 03/03/18 06:15 Retic Count 2.03 % (0.5-1.5) H 03/02/18 06:30 PT 13.9 SECONDS (9.4-12.5) H 02/28/18 19:04 INR 1.21 02/28/18 19:04 APTT 38.8 Seconds (25.1-36.5) H 02/28/18 19:04 D-Dimer, Quantitative 873 ng/mlDDU (0-243) H 02/28/18 22:28 Sodium 135 mmol/L (132-148) 03/03/18 06:15 Potassium 3.5 mmol/L (3.6-5.0) L 03/03/18 06:15 Chloride 100 mmol/L (98-107) 03/03/18 06:15 Carbon Dioxide 29 mmol/L (21-33) 03/03/18 06:15 Anion Gap 10 (10-20) 03/03/18 06:15 BUN 12 mg/dL (7-21) 03/03/18 06:15 Creatinine 0.8 mg/dl (0.7-1.2) 03/03/18 06:15 Est GFR ( Amer) > 60 03/03/18 06:15 Est GFR (Non-Af Amer) > 60 03/03/18 06:15 Random Glucose 86 mg/dL (70-110) 03/03/18 06:15 Calcium 9.2 mg/dL (8.4-10.5) 03/03/18 06:15 Magnesium 1.8 mg/dL (1.7-2.2) 02/28/18 19:04 Total Bilirubin 1.0 mg/dL (0.2-1.3) 03/03/18 06:15 AST 56 U/L (14-36) H 03/03/18 06:15 ALT 33 U/L (7-56) 03/03/18 06:15 Alkaline Phosphatase 103 U/L (38-126) 03/03/18 06:15 Lactate Dehydrogenase 730 U/L (333-699) H 02/28/18 19:04 Total Creatine Kinase 45 U/L (35-230) 02/28/18 19:04 Troponin I 0.01 ng/mL D 02/28/18 19:04 NT-Pro-B Natriuret Pep 330 pg/mL (0-450) 02/28/18 19:04 Total Protein 7.4 g/dL (5.8-8.3) 03/03/18 06:15 Albumin 3.3 g/dL (3.0-4.8) 03/03/18 06:15 Globulin 4.1 gm/dL 03/03/18 06:15 Albumin/Globulin Ratio 0.8 (1.1-1.8) L 03/03/18 06:15 Procalcitonin < 0.05 NG/ML (0.19-0.49) L 03/01/18 06:00 Urine Color Yellow (YELLOW) 02/28/18 22:25 Urine Appearance Clear (CLEAR) 02/28/18 22:25 Urine pH 6.0 (4.7-8.0) 02/28/18 22:25 Ur Specific [place] 1.010 (1.005-1.035) 02/28/18 22:25 Urine Protein Negative mg/dL (<30 mg/dL) 02/28/18 22:25 Urine Glucose (UA) Negative mg/dL (NEGATIVE) 02/28/18 22:25 Urine Ketones Negative mg/dL (NEGATIVE) 02/28/18 22:25 Urine Blood Negative (NEGATIVE) 02/28/18 22:25 Urine Nitrate Negative (NEGATIVE) 02/28/18 22:25 Urine Bilirubin Negative (NEGATIVE) 02/28/18 22:25 Urine Urobilinogen 0.2 E.U./dL (<1 E.U./dL) 02/28/18 22:25 Ur Leukocyte Esterase Trace [place]/uL (NEGATIVE) H 02/28/18 22:25 Urine RBC TEST NOT PERFORMED 02/28/18 22:25 Urine WBC 2 - 5 /hpf (0-6) 02/28/18 22:25 Ur Epithelial Cells 6 - 8 /hpf (0-5) 02/28/18 22:25 Attending/Attestation - Attestation I have personally seen and examined this patient.: Yes I have fully participated in the care of the patient.: Yes I have reviewed all pertinent clinical information, including history, physical exam and plan: Yes Notes (Text): 03/03/18 18:37 Medical record note made by the resident after discussion with my direction and input after the patient was personally seen and examined by me. I have reviewed the chart and agree that the record accurately reflects by personal performance of the history, physical exam, data review, and medical decision-making, in the course for the patient. I have also personally directed the plan of care. 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 Patient was evaluated by physical therapy and was discharged home with home services. Management plan was discussed in detail with patient. Education was provided.
--- NOTE | 2018-03-03 20:22 | US ---
PROCEDURE: Lower extremity CORINNA exam HISTORY: Peripheral vascular disease with pain. PHYSICIAN(S): Riki Cox MD. FINDINGS: The resting CORINNA's are normal: right, 1.13and left, 1.14 The brachial systolic pressures are symmetric. The high thigh pressures and waveforms are relatively normal. The calf PVR waveforms augment normally. No significant gradients are noted across the thighs. The ankle and metatarsal waveforms are relatively normal and symmetric. No significant pressure gradients are noted across the lower legs. IMPRESSION: 1. Normal CORINNA and PVR examination at rest.
--- NOTE | 2018-03-03 20:29 | US ---
HISTORY: Leg pain and swelling. Evaluate for DVT PHYSICIAN(S): Riki Cox MD. TECHNIQUE: Duplex sonography and color-flow Doppler with graded compression were used to evaluate the deep venous systems of both lower extremities. FINDINGS: The visualized deep venous systems of both lower extremities are sonographically normal and compressible. Normal wave forms and augmentation are seen. There is no sonographic evidence for deep venous thrombosis in the visualized segments of both lower extremities. IMPRESSION: No sonographic evidence for deep venous thrombosis in the visualized segments of both lower extremities.
[2018-03-04 00:13] VITALS: BP 120/52; PULSE 60; TEMP 98.7; O2SAT 99
== END 2018-03-03 18:20 | disposition home health service (06) ==
LOC: ED 17:46 → ERH 20:41 → 5RNO 22:54 → OBSVTOIN 03-01 11:17
PROVIDERS: ADMIT Internal Medicine; ATTEND Internal Medicine
DX: I11.0 Hypertensive heart disease with heart failure (principal); C79.51 Secondary malignant neoplasm of bone; E87.6 Hypokalemia; I50.30 Unspecified diastolic (congestive) heart failure; C50.919 Malignant neoplasm of unspecified site of unspecified female breast; I87.2 Venous insufficiency (chronic) (peripheral); I25.10 Atherosclerotic heart disease of native coronary artery without angina pectoris; M81.0 Age-related osteoporosis without current pathological fracture; E78.5 Hyperlipidemia, unspecified

== ENCOUNTER 2018-04-14 13:41 | Inpatient (IN) | payer OTHER ==
[2018-04-14] MEDS ORDERED: Sodium Chloride 0.9% 1,000 ML IV STA (14:48)
--- NOTE | 2018-04-14 15:01 | ED PDOC ---
Arrival/HPI - General Chief Complaint: Lower Extremity Problem/Injury Time Seen by Provider: 04/14/18 14:26 Historian: Patient - History of Present Illness Narrative History of Present Illness (Text): 04/14/18 14:46 62 year old female, with past medical history of HTN, HLD, Stage IV breast CA with metastases to bones and left hip replacement (10 years ago), presents to the ED via EMS for medical evaluation today. As per son-in law patient lives alone and was found to be confused and in pain this morning, after which patient was subsequently brought to the ED for evaluation. Upon arrival, patient is crying and asking for help for her pain but is unable to fully explain the location of the discomfort. Patient denies any fall and is able to follow commands. HPI and ROS limited secondary to clinical presentation. Time/Duration: Prior to Arrival Symptom Onset: Gradual Symptom Course: Unchanged Activities at Onset: Light Context: Home Past Medical History - Provider Review Nursing Documentation Reviewed: Yes - Past History Past History: No Previous - Infectious Disease Hx of Infectious Diseases: None - Tetanus Immunization Tetanus Immunization: Unknown - Reproductive Menopause: Yes - Past Medical History Past Medical History: Non-Contributing - Cardiac Hx Hypertension: Yes - Pulmonary Hx Respiratory Disorders: No - Neurological Hx Neurological Disorder: No - HEENT Hx HEENT Disorder: No - Renal Hx Renal Disorder: No - Endocrine/Metabolic Hx Endocrine Disorders: No - Hematological/Oncological Hx Cancer: Yes (stage 4 breast CA with mets) - Integumentary Hx Dermatological Disorder: No - Musculoskeletal/Rheumatological Hx Falls: No - Gastrointestinal Hx Gastrointestinal Disorders: No - Genitourinary/Gynecological Hx Genitourinary Disorders: No - Psychiatric Hx Anxiety: Yes Hx Substance Use: No - Surgical History Hx Joint Replacement: Yes (right hip (3 screws)) Hx Mastectomy: No - Anesthesia Hx Anesthesia: Yes Hx Anesthesia Reactions: No Hx Malignant Hyperthermia: No - Suicidal Assessment Feels Threatened In Home Enviroment: No Family/Social History - Physician Review Nursing Documentation Reviewed: Yes Family/Social History: Unknown Family HX Smoking Status: Never Smoked Hx Alcohol Use: No Amount per day: 3 Hx Substance Use: No Hx Substance Use Treatment: No Allergies/Home Meds Allergies/Adverse Reactions: Allergies No Known Allergies Allergy (Verified 03/03/18 12:47) Review of Systems - Review of Systems Systems not reviewed;Unavailable: Acuity of Condition (Crying in pain) Musculoskeletal: Other (right hip pain) Physical Exam Vital Signs Reviewed: Yes Vital Signs Temp Pulse Resp BP Pulse Ox 04/14/18 13:47 102.1 F H 98 H 20 125/71 98 Temperature: Febrile Blood Pressure: Normal Pulse: Tachycardic Respiratory Rate: Normal Appearance: Positive for: Uncomfortable (crying in pain) Pain Distress: Mild Mental Status: Positive for: other (Awake and alert) - Systems Exam Head: Present: Atraumatic, Normocephalic Pupils: Present: PERRL Extroacular Muscles: Present: EOMI Conjunctiva: Present: Normal Mouth: Present: Dry (Very dry) Neck: Present: Normal Range of Motion. No: Meningeal Signs, JVD Respiratory/Chest: Present: Clear to Auscultation, Good Air Exchange. No: Respiratory Distress, Accessory Muscle Use Cardiovascular: Present: Normal S1, S2, Tachycardic. No: Murmurs Abdomen: No: Tenderness, Distention, Peritoneal Signs Back: Present: Normal Inspection Upper Extremity: Present: Tenderness (tenderness to right anterior hip). No: Cyanosis, Edema Lower Extremity: Present: Edema (right lower extremity), Erythema (Right lower extremity) Neurological: Present: GCS=15, CN II-XII Intact, Speech Normal Skin: Present: Warm, Dry, Normal Color. No: Rashes Psychiatric: Present: Alert Medical Decision Making ED Course and Treatment: 04/14/18 14:46 Impression: 62 year old female presents to the ED for medical evaluation of pain. Plan: -- CT of Abdomen/Pelvis -- CT of head -- EKG -- Labs -- Chest X-ray -- IV Fluids -- Tylenol -- Blood Culture -- Urine Culture -- Rapid Flu A/B -- Urinalysis -- US of Lower Extremity -- Reassess and disposition Prior Visits: Notes and results from previous visits were reviewed. Progress Notes: 04/14/18 17:04 CT of Abdomen/Pelvis and CT of head reviewed by radiologist, shows no acute findings. 04/14/18 17:25 EKG: Ordered, reviewed, and independently interpreted the EKG. Rate : 133 BPM Rhythm : Sinus Tachycardia Interpretation : Normal interval, normal axis, nonspecific ST/T wave changes, some artifact present. 04/14/18 17:47 Chest X-ray reviewed by radiologist, shows no active disease. - RAD Interpretation Radiology Orders: 04/14/18 14:45 DUPLEX LOWER EXTRM VEIN BILAT [US] Stat 04/14/18 14:46 HEAD W/O CONTRAST [CT] Stat 04/14/18 14:47 CHEST PORTABLE [RAD] Stat 04/14/18 14:49 ABD & PELVIS IV CONTRAST ONLY [CT] Stat Panel Maker: Radiologist - EKG Interpretation Interpreted by ED Physician: Yes Type: 12 lead EKG - Medication Orders Current Medication Orders: Sodium Chloride (Sodium Chloride 0.9%) 1,000 mls @ 999 mls/hr IV .Q1H1M STA Stop: 04/14/18 15:48 Discontinued Medications Acetaminophen (Tylenol 325mg Tab) 975 mg PO STAT STA Stop: 04/14/18 14:46 - Scribe Statement The provider has reviewed the documentation as recorded by the Scribe Alexander Koenig. All medical record entries made by the Scribe were at my direction and personally dictated by me. I have reviewed the chart and agree that the record accurately reflects my personal performance of the history, physical exam, medical decision making, and the department course for this patient. I have also personally directed, reviewed, and agree with the discharge instructions and disposition. Disposition/Present on Arrival - Present on Arrival Any Indicators Present on Arrival: No History of DVT/PE: No History of Uncontrolled Diabetes: No Urinary Catheter: No History of Decub. Ulcer: No History Surgical Site Infection Following: None - Disposition Have Diagnosis and Disposition been Completed?: Yes Diagnosis: Altered mental status, Lower extremity edema, Cellulitis Disposition: HOSPITALIZED Disposition Time: 17:16 Patient Plan: Admission Patient Problems: Current Active Problems Problem Status Onset Altered mental status Acute Cellulitis Acute Lower extremity edema Acute Condition: STABLE Discharge Instructions (ExitCare): Cellulitis (ED) Forms: [employer] (German)
[2018-04-14 15:33] LABS: BASO # 0.02 K/mm3 (0.0-2.0); BASO % 0.1 % (0.0-3.0); HEMOGLOBIN 8.6 g/dL (12.0-16.0); LYMPH # 0.6 (1.2-3.4); LYMPH % 3.7 % (22.0-35.0); MEAN CELL VOLUME 78.6 fl (80.0-105.0); MEAN CORPUSCULAR HEMOGLOBIN 25.2 pg (25.0-35.0); MEAN CORPUSCULAR HGB CONC 32.1 g/dl (31.0-37.0); MEAN PLATELET VOLUME 9.4 fl (7.0-11.0); MONO # 2.1 (0.1-0.6); MONO % 13.2 % (1.0-6.0); PLATELET COUNT 265 10^3/uL (120.0-450.0); RBC 3.41 10^6/uL (3.5-6.1); RED CELL DISTRIBUTION WIDTH 16.8 % (11.5-14.5)
[2018-04-14 15:37] LABS: URINE APPEARANCE CLEAR (CLEAR); URINE BILIRUBIN NEGATIVE (NEGATIVE); URINE BLOOD NEGATIVE (NEGATIVE); URINE COLOR YELLOW (YELLOW); URINE GLUCOSE (UA) NEGATIVE (NEGATIVE); URINE LEUKOCYTE ESTERASE NEGATIVE Leu/uL (NEGATIVE); URINE PROTEIN NEGATIVE mg/dL (<30 mg/dL); URINE UROBILINOGEN 0.2 E.U./dL (<1 E.U./dL)
[2018-04-14 15:45] LABS: ALBUMIN 3.9 g/dL (3.0-4.8); ALT/SGPT 22 U/L (7-56); AST/SGOT 43 U/L (14-36); BLOOD UREA NITROGEN 22 mg/dL (7-21); CALCIUM 9.4 mg/dL (8.4-10.5); GFR NON-AFRICAN AMERICAN > 60
[2018-04-14 15:46] LABS: INR 1.26; PARTIAL THROMBOPLASTIN TIME 33.5 Seconds (25.1-36.5); PROTHROMBIN TIME 14.4 SECONDS (9.4-12.5)
[2018-04-14] MEDS ORDERED: Iohexol 350 MG/100 ML VIAL ONE (15:53)
[2018-04-14 15:54] LABS: ANISOCYTOSIS SLIGHT; LYMPHOCYTE 2 % (22.0-35.0); MONOCYTE 8 % (1.0-6.0); NEUTROPHIL 90 % (50.0-70.0); PLATELET ESTIMATE NORMAL (NORMAL)
[2018-04-14 15:56] LABS: TROPONIN I 0.01 ng/mL
[2018-04-14 16:02] LABS: VENOUS BLOOD GAS BASE EXCESS 1.9 mmol/L (0.0-2.0); VENOUS BLOOD GAS PO2 113 mm/Hg (30-55); VENOUS BLOOD PH 7.42 (7.32-7.43)
[2018-04-14] MEDS ORDERED: Morphine 4 mg/ml ISec IVP STA (16:06)
[2018-04-14 16:15] LABS: BARBITURATES, UR NEGATIVE (NEGATIVE); BENZODIAZEPINES, UR NEGATIVE (NEGATIVE); OPIATES, UR POSITIVE (NEGATIVE); PHENCYCLIDINE, UR NEGATIVE (NEGATIVE)
[2018-04-14] MEDS ORDERED: Piperacill/Tazo 4.5gm in NS 4.5 GM/100 ML BAG IVPB STA (16:15)
[2018-04-14] MEDS ORDERED: Vancomycin 1gm in NS 250ml 1 GM/250 ML BAG IVPB STA (16:15)
--- NOTE | 2018-04-14 16:54 | CT ---
Date of service: 04/14/2018 PROCEDURE: CT HEAD WITHOUT CONTRAST. HISTORY: ams COMPARISON: 01/18/2018 TECHNIQUE: Axial computed tomography images were obtained through the head/brain without intravenous contrast. Radiation dose: Total exam DLP = 845.14 mGy-cm. This CT exam was performed using one or more of the following dose reduction techniques: Automated exposure control, adjustment of the mA and/or kV according to patient size, and/or use of iterative reconstruction technique. FINDINGS: HEMORRHAGE: No intracranial hemorrhage. BRAIN: No mass effect or edema. Chronic microvascular changes are seen. No acute findings VENTRICLES: Unremarkable. No hydrocephalus. CALVARIUM: Unremarkable. PARANASAL SINUSES: Unremarkable as visualized. No significant inflammatory changes. MASTOID AIR CELLS: Unremarkable as visualized. No inflammatory changes. OTHER FINDINGS: None. IMPRESSION: No acute intracranial findings
[2018-04-14] MEDS ORDERED: oxyCODONE 30 mg Immediate Release Tab PO STA (17:01)
--- NOTE | 2018-04-14 17:02 | CT ---
Date of service: 04/14/2018 PROCEDURE: CT Abdomen and Pelvis with contrast HISTORY: fever COMPARISON: None. TECHNIQUE: Contrast dose: 100 cc of Omni 350 Radiation dose: Total exam DLP = 580.28 mGy-cm. This CT exam was performed using one or more of the following dose reduction techniques: Automated exposure control, adjustment of the mA and/or kV according to patient size, and/or use of iterative reconstruction technique. FINDINGS: LOWER THORAX: Unremarkable. LIVER: Unremarkable. No gross lesion or ductal dilatation. GALLBLADDER AND BILE DUCTS: Multiple gallstones PANCREAS: Unremarkable. No gross lesion or ductal dilatation. SPLEEN: Unremarkable. ADRENALS: Unremarkable. No mass. KIDNEYS AND URETERS: Unremarkable. No hydronephrosis. No solid mass. VASCULATURE: Unremarkable. No aortic aneurysm. Aortic calcification BOWEL: Unremarkable. No obstruction. No gross mural thickening. APPENDIX: Normal appendix. PERITONEUM: Unremarkable. No free fluid. No free air. LYMPH NODES: Unremarkable. No enlarged lymph nodes. BLADDER: Unremarkable. REPRODUCTIVE: Unremarkable. BONES: No acute fracture. OTHER FINDINGS: None. IMPRESSION: No acute intra-abdominal findings.
--- NOTE | 2018-04-14 17:04 | RAD ---
Date of service: 04/14/2018 HISTORY: fever COMPARISON: 02/28/2018 FINDINGS: LUNGS: No active pulmonary disease. PLEURA: No significant pleural effusion identified, no pneumothorax apparent. CARDIOVASCULAR: No aortic atherosclerotic calcification present. Mild cardiomegaly no pulmonary vascular congestion. OSSEOUS STRUCTURES: No significant abnormalities. VISUALIZED UPPER ABDOMEN: Normal. OTHER FINDINGS: None. IMPRESSION: No active disease.
--- NOTE | 2018-04-14 17:50 | CP.PCM.HP ---
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 Patient is altered during evaluation and history is limited. She states she began developing leg swelling yesterday associated with right leg pain but otherwise denies all other complaints at this time including CP, SOB, fevers, headaches, nausea, vomiting, back pain, abdominal pain, urinary complaints, numbness, tingling, diarrhea, constipation, nausea and vomiting. She states she gets infusions for chemotherapy every 3 weeks at [facility]. She states her next appointment is this week on April 17. She states she typically has a weekly home agent but she has not come this week due to the holidays. She was admi tted to the hospital last month for a 3 day hospital course of LE edema and admitted to the hospital two months ago for AMS and found to have severe sepsis treated in the ICU for a total stay of 13 days. 12 point ROS noted here, otherwise unremarkable. 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 Lives alone Sx: left hip surgery 10 yearsd ago, ankle surgery FH: father had unknown pelvic cancer, mother had CVA SH: Denies tobacco, alcohol, illicit drugs. Allergies: denies Meds: as per MAR, verified with [facility] in [place] Ady Her (son-in-law; contact info listed under summary in [employer]) and Riki Vazquez (other relative; [phone]) Present on Admission - Present on Admission Any Indicators Present on Admission: No Past Patient History - Infectious Disease Hx of Infectious Diseases: None - Tetanus Immunizations Tetanus Immunization: Unknown - Past Social History Smoking Status: Never Smoked - CARDIAC Hx Hypertension: Yes - PULMONARY Hx Respiratory Disorders: No - NEUROLOGICAL Hx Neurological Disorder: No - HEENT Hx HEENT Problems: No - RENAL Hx Chronic Kidney Disease: No - ENDOCRINE/METABOLIC Hx Endocrine Disorders: No - HEMATOLOGICAL/ONCOLOGICAL Hx Cancer: Yes (stage 4 breast CA with mets) - INTEGUMENTARY Hx Dermatological Problems: No - MUSCULOSKELETAL/RHEUMATOLOGICAL Hx Falls: No - GASTROINTESTINAL Hx Gastrointestinal Disorders: No - GENITOURINARY/GYNECOLOGICAL Hx Genitourinary Disorders: No - PSYCHIATRIC Hx Anxiety: Yes Hx Substance Use: No - SURGICAL HISTORY Hx Joint Replacement: Yes (right hip (3 screws)) Hx Mastectomy: No - ANESTHESIA Hx Anesthesia: Yes Hx Anesthesia Reactions: No Hx Malignant Hyperthermia: No Meds Allergies/Adverse Reactions: Allergies Allergy/AdvReac Type Severity Reaction Status Date / Time No Known Allergies Allergy Verified 03/03/18 12:47 Physical Exam - Constitutional Appears: No Acute Distress, Unkempt, Agitated, Confused - Head Exam Head Exam: ATRAUMATIC, NORMAL INSPECTION - Eye Exam Eye Exam: EOMI Pupil Exam: PERRL - ENT Exam ENT Exam: Mucous Membranes Moist - Neck Exam Neck exam: Positive for: Normal Inspection - Respiratory Exam Respiratory Exam: Clear to Auscultation Bilateral. absent: Accessory Muscle Use, Wheezes, Respiratory Distress - Cardiovascular Exam Cardiovascular Exam: Tachycardia, +S1, +S2 - GI/Abdominal Exam GI & Abdominal Exam: Normal Bowel Sounds, Soft. absent: Firm, Guarding, Tenderness - Extremities Exam Extremities exam: Positive for: pedal pulses present Additional comments: B/L +2 edema present R>L. RLE has anterior erythematous area measuring 20cm by 5 cm with no clear demarcation border. No drainage/bleeding/pus appreciated. - Back Exam Back exam: NORMAL INSPECTION - Neurological Exam Neurological exam: Alert, CN II-XII Intact Additional comments: Alert to person and place, not time. - Skin Skin Exam: Normal Color, Warm Results - Vital Signs Recent Vital Signs: Last Vital Signs Temp 99.3 F 04/14/18 16:56 Pulse 120 H 04/14/18 16:56 Resp 17 04/14/18 16:56 BP 124/64 04/14/18 16:56 Pulse Ox 96 04/14/18 16:56 - Labs Result Diagrams: 04/14/18 15:20 04/14/18 15:20 Labs: Laboratory Results - last 24 hr 04/14/18 04/14/18 04/14/18 15:20 15:20 15:20 WBC 16.0 H D RBC 3.41 L Hgb 8.6 L Hct 26.8 L MCV 78.6 L D MCH 25.2 MCHC 32.1 RDW 16.8 H Plt Count 265 MPV 9.4 Gran % 83.0 H Lymph % (Auto) 3.7 L [place] % (Auto) 13.2 H Eos % (Auto) 0.0 L Baso % (Auto) 0.1 Gran # 13.30 H Lymph # (Auto) 0.6 L [place] # (Auto) 2.1 H Eos # (Auto) 0.0 Baso # (Auto) 0.02 Neutrophils % (Manual) 90 H Lymphocytes % (Manual) 2 L Monocytes % (Manual) 8 H Platelet Evaluation Normal Anisocytosis (manual) Slight PT 14.4 H INR 1.26 APTT 33.5 pO2 VBG pH VBG pCO2 VBG HCO3 VBG Total CO2 VBG O2 Sat (Calc) VBG Base Excess VBG Potassium Glucose Lactate FiO2 Sodium Potassium Chloride Carbon Dioxide Anion Gap BUN Creatinine Est GFR ( Amer) Est GFR (Non-Af Amer) Random Glucose Calcium Phosphorus Magnesium Total Bilirubin AST ALT Alkaline Phosphatase Ammonia Lactate Dehydrogenase Total Creatine Kinase Troponin I Total Protein Albumin Globulin Albumin/Globulin Ratio Venous Blood Potassium Urine Color Urine Appearance Urine pH Ur Specific [place] Urine Protein Urine Glucose (UA) Urine Ketones Urine Blood Urine Nitrate Urine Bilirubin Urine Urobilinogen Ur Leukocyte Esterase Urine Opiates Screen Urine Methadone Screen Ur Barbiturates Screen Ur Phencyclidine Scrn Ur Amphetamines Screen U Benzodiazepines Scrn U Oth Cocaine Metabols U Cannabinoids Screen Alcohol, Quantitative Influenza Typ A,B (EIA) Negative for flu a/b 04/14/18 04/14/18 04/14/18 15:20 15:20 15:20 WBC RBC Hgb Hct MCV MCH MCHC RDW Plt Count MPV Gran % Lymph % (Auto) [place] % (Auto) Eos % (Auto) Baso % (Auto) Gran # Lymph # (Auto) [place] # (Auto) Eos # (Auto) Baso # (Auto) Neutrophils % (Manual) Lymphocytes % (Manual) Monocytes % (Manual) Platelet Evaluation Anisocytosis (manual) PT INR APTT pO2 VBG pH VBG pCO2 VBG HCO3 VBG Total CO2 VBG O2 Sat (Calc) VBG Base Excess VBG Potassium Glucose Lactate FiO2 Sodium 132 Potassium 3.7 Chloride 98 Carbon Dioxide 26 Anion Gap 12 BUN 22 H Creatinine 0.9 Est GFR ( Amer) > 60 Est GFR (Non-Af Amer) > 60 Random Glucose 124 H Calcium 9.4 Phosphorus 2.3 L Magnesium 1.8 Total Bilirubin 1.8 H AST 43 H D ALT 22 Alkaline Phosphatase 102 Ammonia < 9 L Lactate Dehydrogenase 548 Total Creatine Kinase 130 Troponin I 0.01 Total Protein 7.9 Albumin 3.9 Globulin 4.0 Albumin/Globulin Ratio 1.0 L Venous Blood Potassium Urine Color Yellow Urine Appearance Clear Urine pH 6.0 Ur Specific [place] 1.020 Urine Protein Negative Urine Glucose (UA) Negative Urine Ketones Negative Urine Blood Negative Urine Nitrate Negative Urine Bilirubin Negative Urine Urobilinogen 0.2 Ur Leukocyte Esterase Negative Urine Opiates Screen Urine Methadone Screen Ur Barbiturates Screen Ur Phencyclidine Scrn Ur Amphetamines Screen U Benzodiazepines Scrn U Oth Cocaine Metabols U Cannabinoids Screen Alcohol, Quantitative Influenza Typ A,B (EIA) 04/14/18 04/14/18 04/14/18 15:20 15:20 15:57 WBC RBC Hgb Hct MCV MCH MCHC RDW Plt Count MPV Gran % Lymph % (Auto) [place] % (Auto) Eos % (Auto) Baso % (Auto) Gran # Lymph # (Auto) [place] # (Auto) Eos # (Auto) Baso # (Auto) Neutrophils % (Manual) Lymphocytes % (Manual) Monocytes % (Manual) Platelet Evaluation Anisocytosis (manual) PT INR APTT pO2 113 H VBG pH 7.42 VBG pCO2 41.0 VBG HCO3 26.6 VBG Total CO2 27.9 VBG O2 Sat (Calc) 100.0 H VBG Base Excess 1.9 VBG Potassium 3.7 Glucose 123 H Lactate 1.5 FiO2 21.0 Sodium 132.0 Potassium Chloride 100.0 Carbon Dioxide Anion Gap BUN Creatinine Est GFR ( Amer) Est GFR (Non-Af Amer) Random Glucose Calcium Phosphorus Magnesium Total Bilirubin AST ALT Alkaline Phosphatase Ammonia Lactate Dehydrogenase Total Creatine Kinase Troponin I Total Protein Albumin Globulin Albumin/Globulin Ratio Venous Blood Potassium 3.7 Urine Color Urine Appearance Urine pH Ur Specific [place] Urine Protein Urine Glucose (UA) Urine Ketones Urine Blood Urine Nitrate Urine Bilirubin Urine Urobilinogen Ur Leukocyte Esterase Urine Opiates Screen Positive H Urine Methadone Screen Negative Ur Barbiturates Screen Negative Ur Phencyclidine Scrn Negative Ur Amphetamines Screen Negative U Benzodiazepines Scrn Negative U Oth Cocaine Metabols Negative U Cannabinoids Screen Negative Alcohol, Quantitative < 10 Influenza Typ A,B (EIA) Assessment & Plan - Assessment and Plan (Free Text) Assessment: This is a 62 year female with PMH of 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 Ady Her (son-in-law; contact info listed under summary in [employer]) and Riki Vazquez (other relative; [phone]) Plan: Leukocytosis -WBC of 16 -fever 102.1, procalc pending -U/A is unremarkable -CT head is unremarkable -CXR is unremarkable -CTAP is unremarkable -UDS positive for opiates (oxycodone) -influenza is negative -blood/urine cx pending -vanc, zosyn day 1 -ID on consult, Dr. Juliet LANDON pain -consider statis vs cellulitis -LE doppler negative for DVT B/L -Xray right hip pending -PT eval -criminal justice social worker home eval Hx of breast cancer -on chemotherapy at [facility], next session is April 17 -oxycodone 30mg q6 prn, neurontin 300mg TID -history of chronic anemia likely 2/2 malignancy -type and screen Depression -Psych on consult, Dr. Valderrama Hx of HLD -lipitor Hx of HTN -lopressor 50mg BID, lasix 20 BID PPX/Diet -SCD -HHD Patient seen and case discussed with attending, Dr. Shaffer <Summer Shaffer R - Last Filed: 04/15/18 11:04> Results - Vital Signs Recent Vital Signs: Last Vital Signs Temp 98.4 F 04/15/18 06:00 Pulse 98 H 04/15/18 06:00 Resp 19 04/15/18 06:00 BP 123/51 L 04/15/18 10:27 Pulse Ox 94 L 04/15/18 06:00 - Labs Result Diagrams: 04/15/18 06:45 04/15/18 06:45 Labs: Laboratory Results - last 24 hr 04/14/18 04/14/18 04/14/18 15:20 15:20 15:20 WBC 16.0 H D RBC 3.41 L Hgb 8.6 L Hct 26.8 L MCV 78.6 L D MCH 25.2 MCHC 32.1 RDW 16.8 H Plt Count 265 MPV 9.4 Gran % 83.0 H Lymph % (Auto) 3.7 L [place] % (Auto) 13.2 H Eos % (Auto) 0.0 L Baso % (Auto) 0.1 Gran # 13.30 H Lymph # (Auto) 0.6 L [place] # (Auto) 2.1 H Eos # (Auto) 0.0 Baso # (Auto) 0.02 Neutrophils % (Manual) 90 H Lymphocytes % (Manual) 2 L Monocytes % (Manual) 8 H Platelet Evaluation Normal Anisocytosis (manual) Slight PT 14.4 H INR 1.26 APTT 33.5 pO2 VBG pH VBG pCO2 VBG HCO3 VBG Total CO2 VBG O2 Sat (Calc) VBG Base Excess VBG Potassium Glucose Lactate FiO2 Sodium Potassium Chloride Carbon Dioxide Anion Gap BUN Creatinine Est GFR ( Amer) Est GFR (Non-Af Amer) Random Glucose Calcium Phosphorus Magnesium Total Bilirubin AST ALT Alkaline Phosphatase Ammonia Lactate Dehydrogenase Total Creatine Kinase Troponin I Total Protein Albumin Globulin Albumin/Globulin Ratio Free T4 TSH 3rd Generation Venous Blood Potassium Urine Color Urine Appearance Urine pH Ur Specific [place] Urine Protein Urine Glucose (UA) Urine Ketones Urine Blood Urine Nitrate Urine Bilirubin Urine Urobilinogen Ur Leukocyte Esterase Urine Opiates Screen Urine Methadone Screen Ur Barbiturates Screen Ur Phencyclidine Scrn Ur Amphetamines Screen U Benzodiazepines Scrn U Oth Cocaine Metabols U Cannabinoids Screen Alcohol, Quantitative Influenza Typ A,B (EIA) Negative for flu a/b Blood Type Antibody Screen BBK History Checked 04/14/18 04/14/18 04/14/18 15:20 15:20 15:20 WBC RBC Hgb Hct MCV MCH MCHC RDW Plt Count MPV Gran % Lymph % (Auto) [place] % (Auto) Eos % (Auto) Baso % (Auto) Gran # Lymph # (Auto) [place] # (Auto) Eos # (Auto) Baso # (Auto) Neutrophils % (Manual) Lymphocytes % (Manual) Monocytes % (Manual) Platelet Evaluation Anisocytosis (manual) PT INR APTT pO2 VBG pH VBG pCO2 VBG HCO3 VBG Total CO2 VBG O2 Sat (Calc) VBG Base Excess VBG Potassium Glucose Lactate FiO2 Sodium 132 Potassium 3.7 Chloride 98 Carbon Dioxide 26 Anion Gap 12 BUN 22 H Creatinine 0.9 Est GFR ( Amer) > 60 Est GFR (Non-Af Amer) > 60 Random Glucose 124 H Calcium 9.4 Phosphorus 2.3 L Magnesium 1.8 Total Bilirubin 1.8 H AST 43 H D ALT 22 Alkaline Phosphatase 102 Ammonia < 9 L Lactate Dehydrogenase 548 Total Creatine Kinase 130 Troponin I 0.01 Total Protein 7.9 Albumin 3.9 Globulin 4.0 Albumin/Globulin Ratio 1.0 L Free T4 TSH 3rd Generation Venous Blood Potassium Urine Color Yellow Urine Appearance Clear Urine pH 6.0 Ur Specific [place] 1.020 Urine Protein Negative Urine Glucose (UA) Negative Urine Ketones Negative Urine Blood Negative Urine Nitrate Negative Urine Bilirubin Negative Urine Urobilinogen 0.2 Ur Leukocyte Esterase Negative Urine Opiates Screen Urine Methadone Screen Ur Barbiturates Screen Ur Phencyclidine Scrn Ur Amphetamines Screen U Benzodiazepines Scrn U Oth Cocaine Metabols U Cannabinoids Screen Alcohol, Quantitative Influenza Typ A,B (EIA) Blood Type Antibody Screen BBK History Checked 04/14/18 04/14/18 04/14/18 15:20 15:20 15:57 WBC RBC Hgb Hct MCV MCH MCHC RDW Plt Count MPV Gran % Lymph % (Auto) [place] % (Auto) Eos % (Auto) Baso % (Auto) Gran # Lymph # (Auto) [place] # (Auto) Eos # (Auto) Baso # (Auto) Neutrophils % (Manual) Lymphocytes % (Manual) Monocytes % (Manual) Platelet Evaluation Anisocytosis (manual) PT INR APTT pO2 113 H VBG pH 7.42 VBG pCO2 41.0 VBG HCO3 26.6 VBG Total CO2 27.9 VBG O2 Sat (Calc) 100.0 H VBG Base Excess 1.9 VBG Potassium 3.7 Glucose 123 H Lactate 1.5 FiO2 21.0 Sodium 132.0 Potassium Chloride 100.0 Carbon Dioxide Anion Gap BUN Creatinine Est GFR ( Amer) Est GFR (Non-Af Amer) Random Glucose Calcium Phosphorus Magnesium Total Bilirubin AST ALT Alkaline Phosphatase Ammonia Lactate Dehydrogenase Total Creatine Kinase Troponin I Total Protein Albumin Globulin Albumin/Globulin Ratio Free T4 TSH 3rd Generation Venous Blood Potassium 3.7 Urine Color Urine Appearance Urine pH Ur Specific [place] Urine Protein Urine Glucose (UA) Urine Ketones Urine Blood Urine Nitrate Urine Bilirubin Urine Urobilinogen Ur Leukocyte Esterase Urine Opiates Screen Positive H Urine Methadone Screen Negative Ur Barbiturates Screen Negative Ur Phencyclidine Scrn Negative Ur Amphetamines Screen Negative U Benzodiazepines Scrn Negative U Oth Cocaine Metabols Negative U Cannabinoids Screen Negative Alcohol, Quantitative < 10 Influenza Typ A,B (EIA) Blood Type Antibody Screen BBK History Checked 04/14/18 04/15/18 04/15/18 20:19 06:45 06:45 WBC 14.1 H RBC 3.50 Hgb 8.7 L Hct 27.5 L MCV 78.6 L MCH 24.9 L MCHC 31.6 RDW 17.1 H Plt Count 235 MPV 9.6 Gran % 92.7 H Lymph % (Auto) 2.2 L [place] % (Auto) 4.8 Eos % (Auto) 0.2 L Baso % (Auto) 0.1 Gran # 13.03 H Lymph # (Auto) 0.3 L [place] # (Auto) 0.7 H Eos # (Auto) 0.0 Baso # (Auto) 0.02 Neutrophils % (Manual) Lymphocytes % (Manual) Monocytes % (Manual) Platelet Evaluation Anisocytosis (manual) PT INR APTT pO2 VBG pH VBG pCO2 VBG HCO3 VBG Total CO2 VBG O2 Sat (Calc) VBG Base Excess VBG Potassium Glucose Lactate FiO2 Sodium 135 Potassium 3.0 L Chloride 102 Carbon Dioxide 25 Anion Gap 11 BUN 16 Creatinine 0.8 Est GFR ( Amer) > 60 Est GFR (Non-Af Amer) > 60 Random Glucose 85 Calcium 8.9 Phosphorus Magnesium Total Bilirubin 1.5 H AST 46 H ALT 25 Alkaline Phosphatase 92 Ammonia Lactate Dehydrogenase Total Creatine Kinase Troponin I Total Protein 6.9 Albumin 3.2 Globulin 3.7 Albumin/Globulin Ratio 0.9 L Free T4 TSH 3rd Generation Venous Blood Potassium Urine Color Urine Appearance Urine pH Ur Specific [place] Urine Protein Urine Glucose (UA) Urine Ketones Urine Blood Urine Nitrate Urine Bilirubin Urine Urobilinogen Ur Leukocyte Esterase Urine Opiates Screen Urine Methadone Screen Ur Barbiturates Screen Ur Phencyclidine Scrn Ur Amphetamines Screen U Benzodiazepines Scrn U Oth Cocaine Metabols U Cannabinoids Screen Alcohol, Quantitative Influenza Typ A,B (EIA) Blood Type A POSITIVE Antibody Screen Negative BBK History Checked Patient has bt 04/15/18 04/15/18 06:45 07:00 WBC RBC Hgb Hct MCV MCH MCHC RDW Plt Count MPV Gran % Lymph % (Auto) [place] % (Auto) Eos % (Auto) Baso % (Auto) Gran # Lymph # (Auto) [place] # (Auto) Eos # (Auto) Baso # (Auto) Neutrophils % (Manual) Lymphocytes % (Manual) Monocytes % (Manual) Platelet Evaluation Anisocytosis (manual) PT INR APTT pO2 VBG pH VBG pCO2 VBG HCO3 VBG Total CO2 VBG O2 Sat (Calc) VBG Base Excess VBG Potassium Glucose Lactate FiO2 Sodium Potassium Chloride Carbon Dioxide Anion Gap BUN Creatinine Est GFR ( Amer) Est GFR (Non-Af Amer) Random Glucose Calcium Phosphorus Magnesium Total Bilirubin AST ALT Alkaline Phosphatase Ammonia Lactate Dehydrogenase Total Creatine Kinase Troponin I Total Protein Albumin Globulin Albumin/Globulin Ratio Free T4 1.50 TSH 3rd Generation 0.41 L Venous Blood Potassium Urine Color Urine Appearance Urine pH Ur Specific [place] Urine Protein Urine Glucose (UA) Urine Ketones Urine Blood Urine Nitrate Urine Bilirubin Urine Urobilinogen Ur Leukocyte Esterase Urine Opiates Screen Urine Methadone Screen Ur Barbiturates Screen Ur Phencyclidine Scrn Ur Amphetamines Screen U Benzodiazepines Scrn U Oth Cocaine Metabols U Cannabinoids Screen Alcohol, Quantitative Influenza Typ A,B (EIA) Blood Type Antibody Screen BBK History Checked Attending/Attestation - Attestation I have personally seen and examined this patient.: Yes I have fully participated in the care of the patient.: Yes I have reviewed all pertinent clinical information: Yes Notes (Text): Patient seen and examined by me with resident at 5:25PM on 04/14/18. Case including HPI, physical exam, and assessment and plan discussed with resident. Agree with above with following additions/corrections. Patient is a 62-year-old female past medical history significant for Stage 4 invasive ductal carcinoma of the breast with metastases to the bone on chemotherapy, MSSA bacteremia, hypertension, coronary artery disease, osteoarthritis, history of right hip fracture, ankle fracture, sepsis, toxic metabolic encephalopathy, anemia, and systolic CHF that presented to the emergency room with right lower extremity erythema and pain after patient's son-in-law found patient altered and crying. Patient is a poor historian. Cries intermittently throughout interview. Patient also goes on tangents. Patient states her son-in-law called the ambulance because he wants "me in the [facility]." Patient then states she called her son-in-law to help her with her TV and he came over and saw that her right leg was swollen and red and that's why he called the ambulance. Patient states that the redness and swelling started one day prior to arrival to ED. She states she was pacing in her walking back and forth because it's the one year anniversary of her daughter's . She believe's this aggravated her leg. Patient states she normally uses a can or walker to ambulate. Patient states she also took lasix to she if it helped. Patient also complains of right hip pain which is chronic. Patient states she took her home oxycodone with little relief. Patient states she goes every 3 weeks to [facility] for "infusions for my breast cancer." She states her next appointment is April 17. Patient is oriented x 2, not oriented to time. Patient denies any chest pain or shortness of breath. No headaches or dizziness. No fevers or chills. No nausea, vomiting, or abdominal pain. No dysuria. No diarrhea or constipation. No nausea, vomiting, or abdominal pain. 12 point review of systems reviewed by me. Please see above HPI, all other systems negative. Family History. Mother from heart attack. Father had an unknown pelvic/urinary cancer. General: Awake and alert sitting up in bed in no acute distress HEENT: Normocephalic, atraumatic. Extraocular muscles intact, pupils equal and reactive, no scleral icterus. Oropharynx is pink and moist. No pharyngeal erythema or exudate appreciated. Neck is supple. Hearing grossly intact. Ears and nose externally unremarkable. Cardiovascular: Regular rhythm. Normal S1 and S2. No murmurs, rubs, or gallops appreciated Pulmonary: Normal respiratory effort. No rhonchi, rales, or wheezing appreciated. Gastrointestinal: Soft, nondistended. Nontender. Positive bowel sounds all 4 quadrants. No guarding. Musculoskeletal: Moves all extremities. No calf tenderness. Right lower extremity with mild edema and erythema. Positive right hip and groin tenderness. Decreased range of motion at right hip. Right leg externally rotated. No CVA tenderness. Central nervous system: AAOx 2, not oriented to time. CN 2-12 grossly intact.Dermatologic: Skin warm and dry. Assessment and plan: Patient is a 62-year-old female past medical history significant for Stage 4 invasive ductal carcinoma of the breast with metastases to the bone on chemotherapy, MSSA bacteremia, hypertension, coronary artery disease, osteoarthritis, history of right hip fracture, ankle fracture, sepsis, toxic metabolic encephalopathy, anemia, and systolic CHF that presented to the emergency room with right lower extremity erythema and pain after patient's son-in-law found patient altered and crying. 1. Fever of unknown origin. Also with leukocytosis. Right lower extremity slightly erythematous, ? cellulitis. Pending blood cultures. Urinalysis does not show UTI. Chest xray as read by me shows not active disease. Pending right hip xray. Continue with zosyn and vanco or now. Patient does have history of bacteremia. Pending procalcitonin. Influenza negative. ID consulted, follow up recommendations. 2. Right hip and lower extremity pain. Lower extremity venous dopplers negative for DVT. Right hip xray pending. Patient is s/p right hip replacement. Likely chronic pain 3. Depression. Patient tearful throughout conversation. Also with tangential thoughts. Psychiatry consulted, follow up recommendations. 4. Anemia. H&H stable. Continue to monitor. No signs of acute bleeding. 5. CAD. No chest pain. Continue home Lipitor, Lisinopril, and metoprolol 6. Chronic systolic CHF exacerbation. Not in acute exacerbation. Continue lasix, metoprolol, and lisinopril 7. Hypertension. Continue metoprolol and lisinopril. 8 8. History of metastatic breast cancer. Patient follows at [facility] for "infusions." next appt April 17, 2018. 9. GI/DVT prophylaxis. Protonix/heparin. 10. Patient is a full code. Case discussed in detail with patient regarding current diagnosis and treatment plan. All questions answered.
[2018-04-14] MEDS: Piperacillin/Tazobact 3.375 gm 100 ML IVPB SCH (22:19)
[2018-04-15 00:55] VITALS: BMI 26.7
[2018-04-15] MEDS: Piperacillin/Tazobact 3.375 gm 100 ML IVPB SCH (04:49)
[2018-04-15 07:50] LABS: BASO # 0.02 K/mm3 (0.0-2.0); BASO % 0.1 % (0.0-3.0); EOS % 0.2 % (1.5-5.0); GRAN # 13.03 (1.4-6.5); GRAN % 92.7 % (50.0-68.0); HEMOGLOBIN 8.7 g/dL (12.0-16.0); LYMPH # 0.3 (1.2-3.4); LYMPH % 2.2 % (22.0-35.0); MEAN CELL VOLUME 78.6 fl (80.0-105.0); MEAN CORPUSCULAR HEMOGLOBIN 24.9 pg (25.0-35.0); MEAN CORPUSCULAR HGB CONC 31.6 g/dl (31.0-37.0); MEAN PLATELET VOLUME 9.6 fl (7.0-11.0); MONO # 0.7 (0.1-0.6); MONO % 4.8 % (1.0-6.0); RBC 3.5 10^6/uL (3.5-6.1); RED CELL DISTRIBUTION WIDTH 17.1 % (11.5-14.5); WHITE BLOOD COUNT 14.1 10^3/uL (4.5-11.0)
[2018-04-15 08:20] LABS: ALB/GLOB RATIO 0.9 (1.1-1.8); ALBUMIN 3.2 g/dL (3.0-4.8); ALT/SGPT 25 U/L (7-56); AST/SGOT 46 U/L (14-36); BLOOD UREA NITROGEN 16 mg/dL (7-21); CALCIUM 8.9 mg/dL (8.4-10.5); GFR NON-AFRICAN AMERICAN > 60
[2018-04-15] MEDS ORDERED: Potassium Chloride 20 mEq ER Tab PO STA (08:28)
--- NOTE | 2018-04-15 08:31 | CP.PCM.PN ---
<Vandana Newell - Last Filed: 04/15/18 10:49> Subjective - Date & Time of Evaluation Date of Evaluation: 04/15/18 Time of Evaluation: 07:00 - Subjective Subjective: Medicine Progress Note for Viviana Bai PGY3 Patient seen and examined at bedside. There were acute overnight events as per nursing staff. Patient is resting in bed. She denies chest pain, shortness of breath, nausea/vomiting/diarrhea, fever/chills, numbness/tingling, dysuria/hematuria. Patient A&Ox 2-3. Objective - Vital Signs/Intake and Output Vital Signs (last 24 hours): Temp Pulse Resp BP Pulse Ox 98.4 F 98 H 19 123/51 L 94 L 04/15/18 06:00 04/15/18 06:00 04/15/18 06:00 04/15/18 06:00 04/15/18 06:00 Intake and Output: 04/15/18 04/15/18 06:59 18:59 Intake Total 120 Output Total 800 Balance -680 - Medications Medications: Current Medications Atorvastatin Calcium (Lipitor) 40 mg PO DIN OLGA Docusate Sodium (Colace) 100 mg PO TID PRN PRN Reason: Constipation Furosemide (Lasix) 20 mg PO Q12 OLGA Last Admin: 04/14/18 22:19 Dose: 20 mg Gabapentin (Neurontin) 300 mg PO TID OLGA; Protocol Last Admin: 04/14/18 18:30 Dose: 300 mg Piperacillin Sod/Tazobactam Sod (Zosyn 3.375 In Ns 100ml) 100 mls @ 200 mls/hr IVPB Q6H OLGA; Protocol Last Admin: 04/15/18 04:49 Dose: 200 mls/hr Vancomycin HCl (Vancomycin 1gm) 1 gm in 250 mls @ 167 mls/hr IVPB Q12 OLGA; Protocol Metoprolol Tartrate (Lopressor) 50 mg PO BID OLGA Last Admin: 04/14/18 18:30 Dose: 50 mg Pantoprazole Sodium (Protonix Ec Tab) 40 mg PO ACB OLGA Potassium Chloride (K-Dur 20 Meq Er Tab) 20 meq PO ONCE ONE Stop: 04/15/18 13:01 - Labs Labs: 04/15/18 06:45 04/15/18 06:45 PT 14.4 SECONDS (9.4-12.5) H 04/14/18 15:20 INR 1.26 04/14/18 15:20 APTT 33.5 Seconds (25.1-36.5) 04/14/18 15:20 - Constitutional Appears: No Acute Distress - Head Exam Head Exam: ATRAUMATIC, NORMAL INSPECTION, NORMOCEPHALIC - Eye Exam Eye Exam: Normal appearance, PERRL Pupil Exam: NORMAL ACCOMODATION, PERRL - ENT Exam ENT Exam: Mucous Membranes Moist - Neck Exam Neck Exam: Full ROM - Respiratory Exam Respiratory Exam: Clear to Ausculation Bilateral, NORMAL BREATHING PATTERN. absent: Rales, Rhonchi, Wheezes - Cardiovascular Exam Cardiovascular Exam: REGULAR RHYTHM, +S1, +S2. absent: Gallop, Rubs, Murmur - GI/Abdominal Exam GI & Abdominal Exam: Soft, Normal Bowel Sounds. absent: Rigid, Tenderness, Mass, Rebound - Extremities Exam Extremities Exam: Normal Capillary Refill Additional comments: peripheral pulses intact - Neurological Exam Neurological Exam: Alert, Awake, CN II-XII Intact - Psychiatric Exam Psychiatric exam: Flat Affect, Normal Mood - Skin Skin Exam: Dry, Intact, Warm Additional comments: diffuse erythema on skin exam Assessment and Plan - Assessment and Plan (Free Text) Assessment: This is a 62 year female with PMH of stage IV invasive ductal carcinoma/breast cancer with bone mets on chemotherapy (last session earlier in the month at [facility]), MSSA bacteremia, HTN, PAD, and OA who was found to have 1. Sepsis - Secondary to bacteremia (Gram + cocci) - source can be from chemotherapy (pt does not have port), endocarditis (due to previous hx of MSSA bactermia), will rule out hardware infection (Arvin in R hip and L ankle) - CXR negative, UA negative, CT A/P showed no acute abnormalities, cellulitis unlikely - ID consulted - Repeat blood cultures in AM - Will check ESR, CRP - Pt had redness once started on Vanco. Vanco was dc - Pt started on Azactam and Dapto - Echo ordered - CT of R hip ordered as well as imaging of L ankle 2. R LE pain (improved) - Patient denies any pain in her extremities at this time - Hip XR on R showed degenerative changes with pins - CT of L ankle and R hip ordered to rule out hardware infection - Duplex negative for DVT - Continue pain control - Physical therapy 3. HTN - Continue home medications: Lopressor, Lisinopril, Lasix (all with holding parameters) 4. Depression - Psych consulted - Continue home med: Cymbalta 5. Hx of breast Ca stage IV - Currently on chemotherapy (monthly) - no port in place - Continue pain management with Oxycodone and neurotin (Home med) - Pain management doctor is Dr. Catrachito Mustafa 6. Hyperlipidemia - Continue home med: Lipitor 7. Anemia of chronic disease - Hgb stable without over signs of bleeding - Continue to monitor DVT ppx: Heparin SC Spoke with [employer] pharmacy on 04/15/18 and confirmed all home medication. Dispo: Spoke with son in [place] in detail today and would like patient to be evaluated for detention. He would also like to be notified about patient's clinical course. PT eval and social work eval pending. Case seen, discussed and reviewed with Dr. Edmund Newell PGY3 <Summer Shaffer R - Last Filed: 04/19/18 06:56> Objective - Vital Signs/Intake and Output Vital Signs (last 24 hours): Temp Pulse Resp BP Pulse Ox 98.7 F 70 20 115/64 98 04/18/18 06:00 04/18/18 09:10 04/18/18 06:00 04/18/18 09:10 04/18/18 06:00 - Labs Labs: 04/18/18 06:20 04/18/18 06:20 PT 14.4 SECONDS (9.4-12.5) H 04/14/18 15:20 INR 1.26 04/14/18 15:20 APTT 33.5 Seconds (25.1-36.5) 04/14/18 15:20 Attending/Attestation - Attestation I have personally seen and examined this patient.: Yes I have fully participated in the care of the patient.: Yes I have reviewed all pertinent clinical information, including history, physical exam and plan: Yes Notes (Text): Patient seen and examined by me with resident at 8:30 AM on 04/15/18. Case including HPI, physical exam, and assessment and plan discussed with resident. Agree with above with following additions/corrections. Patient is a 62-year-old female past medical history significant for Stage 4 invasive ductal carcinoma of the breast with metastases to the bone on chemotherapy, MSSA bacteremia, hypertension, coronary artery disease, osteoarthritis, history of right hip fracture, ankle fracture, sepsis, toxic metabolic encephalopathy, anemia, and systolic CHF that presented to the emergency room with right lower extremity erythema and pain after patient's son-in-law found patient altered and crying. Patient states that she is feeling better today. States her right leg pain has improved. Patient denies any chest pain or shortness of breath. No headaches or dizziness. No fevers or chills. No nausea, vomiting, or abdominal pain. No dysuria. Physical exam: General: Awake and alert sitting up in bed in no acute distress HEENT: Normocephalic, atraumatic. Extraocular muscles intact, pupils equal and reactive, no scleral icterus. Oropharynx is pink and moist. Neck is supple. Cardiovascular: Regular rhythm. Normal S1 and S2. No murmurs, rubs, or gallops appreciated Pulmonary: Normal respiratory effort. No rhonchi, rales, or wheezing appreciated. Gastrointestinal: Soft, nondistended. Nontender. Positive bowel sounds all 4 quadrants. No guarding. Musculoskeletal: Moves all extremities. No calf tenderness. Trace right lower extremity edema. Decreased range of motion at right hip. Central nervous system: AAOx 3. Dermatologic: Skin warm and dry. Assessment and plan: Patient is a 62-year-old female past medical history significant for Stage 4 invasive ductal carcinoma of the breast with metastases to the bone on chemotherapy, MSSA bacteremia, hypertension, coronary artery disease, osteoarthritis, history of right hip fracture, ankle fracture, sepsis, toxic metabolic encephalopathy, anemia, and systolic CHF that presented to the emergency room with right lower extremity erythema and pain after patient's son-in-law found patient altered and crying. 1. Sepsis secondary to Gram-positive cocci bacteremia. Fever resolved. Leukocytosis downtrending. Pending final blood culture results. ID following, recommendations appreciated. Patient started on Azactam and daptomycin. Follow up 2-D echo. CT of right hip ordered and pending. Chest xray showed no active disease. CT abdomen and pelvis per radiologist showed no acute intra-abdominal findings. 2. Right hip and lower extremity pain. Lower extremity venous dopplers negative for DVT. Right hip xray per radiologist showed prior pen fixation of the right hip with severe degenerative change. Patient is s/p right hip replacement. Yolis ruanoy chronic pain 3. Depression. Psychiatry following, recommendations appreciated. Per psychiatrist, patient declines any psychiatric management at this time. Continue home Cymbalta. 4. Anemia. H&H stable. Continue to monitor CBC. No signs of acute bleeding. 5. CAD. No chest pain. Continue home Lipitor, Lisinopril, and metoprolol 6. Chronic systolic CHF exacerbation. Not in acute exacerbation. Continue lasix, metoprolol, and lisinopril 7. Hypertension. Continue metoprolol and lisinopril. 8. History of metastatic breast cancer. Patient follows at [facility] for "infusions." next appt April 17, 2018. 9. GI/DVT prophylaxis. Protonix/heparin. 10. Patient is a full code. Case discussed in detail with patient regarding current diagnosis and treatment plan. All questions answered.
--- NOTE | 2018-04-15 09:54 | RAD ---
PROCEDURE: Right Hip Radiographs. HISTORY: right hip pain COMPARISON: Correlations made to CT scan of the abdomen and pelvis performed earlier the same day FINDINGS: BONES: Prior pin fixation of the right hip JOINTS: Severe right hip degenerative change SOFT TISSUES: Normal. OTHER FINDINGS: Miller catheter in place.. IMPRESSION: Prior pin fixation of the right hip with severe degenerative change.
[2018-04-15] MEDS ORDERED: DAPTOmycin 500 mg Inj (Cubicin) IV SCH (10:00)
[2018-04-15] MEDS ORDERED: Vancomycin 1gm in NS 250ml 1 GM/250 ML BAG IVPB SCH (10:00)
[2018-04-15] MEDS: Pantoprazole 40 mg EC Tab PO SCH (10:25)
--- NOTE | 2018-04-15 10:40 | CARD ---
APPROVED REPORT Date of service: 04/14/2018 EKG Measurement Heart [id number] <Conclusion> Sinus tachycardia Nonspecific ST and T wave abnormality Abnormal ECG
--- NOTE | 2018-04-15 10:56 | CP.PCM.PCO ---
Addendum Addendum: I reviewed recent notes including prior consultation by Dr. Garcia. Patient declines any psychiatric management at this time. she denies SI/HI or AVH. She is oriented to month, year and location. Psychiatry will respect patient's request and sign off. Please reconsult prn if there are any urgent psychiatric issues that require attention. 04/15/18 10:54
[2018-04-15] MEDS: Aztreonam 1 Gm in NS 100mL 100 ML IVPB SCH ×2 (13:00→21:12)
[2018-04-15] MEDS ORDERED: Potassium Chloride 20 mEq ER Tab PO ONE (13:00)
[2018-04-15] MEDS: oxyCODONE 30 mg Immediate Release Tab PO PRN ×2 (13:01→21:03)
--- NOTE | 2018-04-15 14:57 | US ---
HISTORY: Leg pain and swelling. Evaluate for DVT PHYSICIAN(S): Riki Cox MD. TECHNIQUE: Duplex sonography and color-flow Doppler with graded compression were used to evaluate the deep venous systems of both lower extremities. The exam is limited by the patient's inability to cooperate. The left tibial vein evaluation could not be completed FINDINGS: The visualized deep venous systems of both lower extremities are sonographically normal and compressible. Normal wave forms and augmentation are seen. There is no sonographic evidence for deep venous thrombosis in the visualized segments of both lower extremities. IMPRESSION: No sonographic evidence for deep venous thrombosis in the visualized segments of both lower extremities. Very limited study
--- NOTE | 2018-04-15 18:14 | CON ---
DATE OF CONSULTATION: 04/15/2018 The patient is seen in Room 261, Bed 2. CHIEF COMPLAINT: Temperature of 102 x1 day. HISTORY OF PRESENT ILLNESS: This is a 62-year-old female with breast cancer with mets to the bone, hypertension, osteoporosis, history of MSSA bacteremia, history of [id number] myocardial infarction, history of hypertension and anxiety, who in 01/2018 had evidence of a bacteremia, source was not clear, it was given 4 weeks of daptomycin and the patient had a questionable beta-lactam reaction. PAST MEDICAL HISTORY: Significant for stage IV breast cancer, hypertension, osteoporosis, sensitive Staph aureus bacteremia, coronary artery disease, myocardial infarction. PAST SURGICAL HISTORY: Significant for right hip surgery with hardware with three screws and . MEDICATIONS AT HOME: Lipitor and Lasix. ALLERGIES: THE PATIENT HAS NO KNOWN ALLERGIES PER RECORD. REVIEW OF SYSTEMS: A 12-point review of systems is performed. PHYSICAL EXAMINATION: GENERAL: The patient is seen in bed. VITAL SIGNS: Temperature of 102, heart rate of 120, respiratory rate of 18, blood pressure is 123/50. HEENT: Unremarkable. NECK: Supple. LUNGS: Decreased breath sounds. HEART: Normal S1 and S2. ABDOMEN: Soft. LABORATORY EXAMINATION: White count of 16,000, hemoglobin of 8, platelets of 265,000. Chemistries are noted. Coagulation is noted. BUN of 22 and creatinine of 0.9. Urinalysis is noted. Influenza is negative. Chest x-ray is reported to be negative. CT scan of the head is negative. CT scan of the abdomen is negative. ASSESSMENT/PLAN: This is a 62-year-old female with #1 is systemic inflammatory response syndrome. Source of the fever is not clear. Because of a questionable beta-lactam rash in the past, we will give the patient daptomycin and Azactam. The patient does have diffuse erythema on exam at this time. May have been on vancomycin. We will discontinue the vancomycin and the Zosyn, pending pancultures in this patient who has stage IV breast cancer and overall prognosis quite poor. Jamel Valencia MD
[2018-04-16] MEDS: oxyCODONE 30 mg Immediate Release Tab PO PRN ×2 (05:04→17:32)
[2018-04-16] MEDS: Aztreonam 1 Gm in NS 100mL 100 ML IVPB SCH ×3 (05:05→21:04)
[2018-04-16 05:48] LABS: BASO # 0.03 K/mm3 (0.0-2.0); BASO % 0.2 % (0.0-3.0); EOS % 7.3 % (1.5-5.0); GRAN # 9.49 (1.4-6.5); GRAN % 67.9 % (50.0-68.0); HEMOGLOBIN 7.9 g/dL (12.0-16.0); LYMPH # 1.7 (1.2-3.4); LYMPH % 11.8 % (22.0-35.0); MEAN CELL VOLUME 79.7 fl (80.0-105.0); MEAN CORPUSCULAR HEMOGLOBIN 24.7 pg (25.0-35.0); MEAN PLATELET VOLUME 9.7 fl (7.0-11.0); MONO # 1.8 (0.1-0.6); MONO % 12.8 % (1.0-6.0); RBC 3.2 10^6/uL (3.5-6.1); RED CELL DISTRIBUTION WIDTH 17.1 % (11.5-14.5)
[2018-04-16 06:28] LABS: ALB/GLOB RATIO 0.9 (1.1-1.8); ALBUMIN 3.1 g/dL (3.0-4.8); ALT/SGPT 26 U/L (7-56); AST/SGOT 35 U/L (14-36); BLOOD UREA NITROGEN 20 mg/dL (7-21); CALCIUM 8.9 mg/dL (8.4-10.5); GFR NON-AFRICAN AMERICAN > 60
[2018-04-16] MEDS ORDERED: Potassium Chloride 20 mEq ER Tab PO ONE ×4 (07:02→14:00)
[2018-04-16] MEDS ORDERED: oxyCODONE 15 mg Immediate Release Tab PO ONE (09:35)
[2018-04-16] MEDS: Pantoprazole 40 mg EC Tab PO SCH (09:58)
--- NOTE | 2018-04-16 12:06 | CARD ---
APPROVED REPORT Date of service: 04/16/2018 EXAM: Two-dimensional and M-mode echocardiogram with Doppler and color Doppler. INDICATION Infection:Rule out subacute bacterial endocarditis 2D DIMENSIONS Left Atrium (2D)4.0 (1.6-4.0cm)IVSd1.4 (0.7-1.1cm) LVDd4.4 (3.9-5.9cm)PWd1.2 (0.7-1.1cm) LVDs3.2 (2.5-4.0cm)LVEF (%)51.0 (>50%) M-Mode DIMENSIONS Aortic Root2.90 (2.2-3.7cm)Aortic Cusp Exc.1.90 (1.5-2.0cm) Aortic Valve AoV Peak Fvsfumti421.0cm/Meghana Peak GR.11mmHg Mitral Valve E/A ratio0.0 TDI E/Lateral E'0.0E/Medial E'0.0 Tricuspid Valve TR Peak [id number] [id number] Peak Gr.9mmHg [id number] LEFT VENTRICLE The left ventricle is normal size. There is mild concentric left ventricular hypertrophy. LV Systolic Function Low Normal. Ej>Fr: 51%. RIGHT VENTRICLE The right ventricle is normal size. The right ventricular systolic function is normal. ATRIA The left atrium size is normal. The right atrium size is normal. AORTIC VALVE The aortic valve is normal in structure. Aortic Valve Opening Normal. MITRAL VALVE The mitral valve is normal in structure. Mitral regurgitation is trace to mild. TRICUSPID VALVE The tricuspid valve is normal in structure. There is trace tricuspid regurgitation. PERICARDIAL EFFUSION There is no pericardial effusion. <Conclusion> The left ventricle is normal size. There is mild concentric left ventricular hypertrophy. LV Systolic Function Low Normal. Ej>Fr: 51%. The right ventricle is normal size. The right ventricular systolic function is normal. The left atrium size is normal. The right atrium size is normal. The aortic valve is normal in structure. Aortic Valve Opening Normal. The mitral valve is normal in structure. Mitral regurgitation is trace to mild. The tricuspid valve is normal in structure. There is trace tricuspid regurgitation. There is no pericardial effusion.
--- NOTE | 2018-04-16 13:36 | CP.PCM.PN ---
<Félix Gomes - Last Filed: 04/16/18 14:02> Subjective - Date & Time of Evaluation Date of Evaluation: 04/16/18 Time of Evaluation: 07:00 - Subjective Subjective: Pt seen and examined this morning. Pt denies chest pain, SOB or abdominal pain. Pt has no new complaints at this time. Objective - Vital Signs/Intake and Output Vital Signs (last 24 hours): Temp Pulse Resp BP Pulse Ox 97.1 F L 96 H 19 112/52 L 94 L 04/15/18 18:00 04/15/18 22:00 04/15/18 18:00 04/15/18 21:11 04/15/18 06:00 Intake and Output: 04/16/18 04/16/18 06:59 18:59 Intake Total 200 Output Total 200 Balance 0 - Medications Medications: Current Medications Atorvastatin Calcium (Lipitor) 40 mg PO DIN [facility] Last Admin: 04/15/18 18:11 Dose: 40 mg Docusate Sodium (Colace) 100 mg PO TID PRN PRN Reason: Constipation Duloxetine HCl (Cymbalta) 20 mg PO DAILY [facility] Last Admin: 04/15/18 13:01 Dose: 20 mg Furosemide (Lasix) 20 mg PO Q12 [facility] Last Admin: 04/15/18 21:11 Dose: 20 mg Gabapentin (Neurontin) 300 mg PO TID [facility]; Protocol Last Admin: 04/15/18 18:11 Dose: 300 mg Heparin Sodium (Porcine) (Heparin) 5,000 units SC Q8 [facility]; Protocol Last Admin: 04/16/18 05:05 Dose: 5,000 units Aztreonam (Azactam 1 Gm) 100 mls @ 100 mls/hr IVPB Q8 [facility]; Protocol Stop: 04/24/18 14:01 Last Admin: 04/16/18 05:05 Dose: 100 mls/hr Daptomycin 420 mg/ Sodium (Chloride) 100 mls @ 200 mls/hr IV Q24H [facility] Stop: 04/24/18 12:01 Last Admin: 04/15/18 14:56 Dose: 200 mls/hr Lisinopril (Zestril) 2.5 mg PO DAILY [facility] Metoprolol Tartrate (Lopressor) 50 mg PO BID [facility] Last Admin: 04/15/18 18:11 Dose: 50 mg Oxycodone HCl (Oxycodone Immediate Release Tab) 30 mg PO Q8H PRN PRN Reason: Pain, severe (8-10) Pantoprazole Sodium (Protonix Ec Tab) 40 mg PO ACB [facility] Last Admin: 04/16/18 09:58 Dose: 40 mg Quetiapine Fumarate (Seroquel) 12.5 mg PO HS PRN; Protocol PRN Reason: Agitation - Labs Labs: 04/16/18 05:30 04/16/18 05:30 PT 14.4 SECONDS (9.4-12.5) H 04/14/18 15:20 INR 1.26 04/14/18 15:20 APTT 33.5 Seconds (25.1-36.5) 04/14/18 15:20 - Constitutional Appears: No Acute Distress - Head Exam Head Exam: ATRAUMATIC, NORMOCEPHALIC - Eye Exam Eye Exam: EOMI - ENT Exam ENT Exam: Mucous Membranes Moist - Neck Exam Neck Exam: Full ROM - Respiratory Exam Respiratory Exam: Clear to Ausculation Bilateral, NORMAL BREATHING PATTERN. absent: Accessory Muscle Use, Wheezes - Cardiovascular Exam Cardiovascular Exam: +S1, +S2. absent: Diastolic murmur - GI/Abdominal Exam GI & Abdominal Exam: Soft, Normal Bowel Sounds. absent: Distended, Rebound - Extremities Exam Extremities Exam: Full ROM - Neurological Exam Neurological Exam: Alert, Awake, Oriented x3 - Psychiatric Exam Psychiatric exam: Normal Affect, Normal Mood - Skin Skin Exam: Dry, Intact, Normal Color, Warm Assessment and Plan - Assessment and Plan (Free Text) Assessment: This is a 62 year female with PMH of stage IV invasive ductal carcinoma/breast cancer with bone mets on chemotherapy (last session earlier in the month at [facility]), MSSA bacteremia, HTN, PAD, and OA who was found to have sepsis. Plan: Sepsis - Secondary to bacteremia (Gram + cocci) - source can be from chemotherapy (pt does not have port), endocarditis (due to previous hx of MSSA bactermia), will r ule out hardware infection (Arvin in R hip and L ankle) - CXR negative, UA negative, CT A/P showed no acute abnormalities, cellulitis unlikely - follow up blood cultures - ESR 79, CRP 204 - Pt had redness once started on Vanc. Vanc was discontinued - Pt started on Azactam and Daptomycin - ECHO EF 51%, - CT of Right hip ordered - ID consulted R LE pain (improved) - Hip Xray on Right showed degenerative changes with pins - CT of L ankle and R hip ordered to rule out hardware infection - Duplex negative for DVT - Continue current pain control - Physical therapy HTN - Continue home medications: (all with holding parameters) - Lopressor - decrease Lisinopril to 2.5mg - Lasix, decrease to once daily Hypokalemia - 3.4 - replete PRN Depression - Psych consulted - Continue home Cymbalta Hx of breast Ca stage IV - Currently on chemotherapy (monthly) - no port in place - Continue pain management with Oxycodone and neurotin (Home med) - Pain management doctor is Dr. Catrachito Mustafa Hyperlipidemia - Continue home Lipitor Anemia of chronic disease - Hgb stable without over signs of bleeding - Continue to monitor Ppx - Heparin SC Pt seen, examined, assessment and plan discussed with Dr Summer Gomes PGY1, Internal Medicine Resident <Summer Shaffer R - Last Filed: 04/19/18 07:02> Objective - Vital Signs/Intake and Output Vital Signs (last 24 hours): Temp Pulse Resp BP Pulse Ox 98.7 F 70 20 115/64 98 04/18/18 06:00 04/18/18 09:10 04/18/18 06:00 04/18/18 09:10 04/18/18 06:00 - Labs Labs: 04/18/18 06:20 04/18/18 06:20 PT 14.4 SECONDS (9.4-12.5) H 04/14/18 15:20 INR 1.26 04/14/18 15:20 APTT 33.5 Seconds (25.1-36.5) 04/14/18 15:20 Attending/Attestation - Attestation I have personally seen and examined this patient.: Yes I have fully participated in the care of the patient.: Yes I have reviewed all pertinent clinical information, including history, physical exam and plan: Yes Notes (Text): Patient seen and examined by me with resident at 9:15 AM on 04/16/18. Case including HPI, physical exam, and assessment and plan discussed with resident. Agree with above with following additions/corrections. Patient is a 62-year-old female past medical history significant for Stage 4 invasive ductal carcinoma of the breast with metastases to the bone on chemotherapy, MSSA bacteremia, hypertension, coronary artery disease, osteoarthritis, history of right hip fracture, ankle fracture, sepsis, toxic metabolic encephalopathy, anemia, and systolic CHF that presented to the emergency room with right lower extremity erythema and pain after patient's son-in-law found patient altered and crying. Patient states that she is feeling ok. Complains of some right hip and leg pain. Patient is refusing CT scan of her hip. She states "I dont believe I need any scans." Importance discussed with patient and patient agrees to scan. She denies chest pain or shortness of breath. No headaches or dizziness. No fevers or chills. No nausea, vomiting, or abdominal pain. No dysuria. Physical exam: General: Awake and alert sitting up in bed in no acute distress HEENT: Normocephalic, atraumatic. Extraocular muscles intact, pupils equal and reactive, no scleral icterus. Oropharynx is pink and moist. Neck is supple. Cardiovascular: Regular rhythm. Normal S1 and S2. No murmurs, rubs, or gallops appreciated Pulmonary: Normal respiratory effort. No rhonchi, rales, or wheezing appreciated. Gastrointestinal: Soft, nondistended. Nontender. Positive bowel sounds all 4 quadrants. No guarding. Musculoskeletal: Moves all extremities. No calf tenderness. Trace right lower extremity edema. Decreased range of motion at right hip. Central nervous system: AAOx 3. Dermatologic: Skin warm and dry. Assessment and plan: Patient is a 62-year-old female past medical history s ignificant for Stage 4 invasive ductal carcinoma of the breast with metastases to the bone on chemotherapy, MSSA bacteremia, hypertension, coronary artery disease, osteoarthritis, history of right hip fracture, ankle fracture, sepsis, toxic metabolic encephalopathy, anemia, and systolic CHF that presented to the emergency room with right lower extremity erythema and pain after patient's son-in-law found patient altered and crying. 1. Sepsis secondary to Gram-positive cocci bacteremia. Fever resolved. Leukocytosis downtrending. Pending final blood culture results. ID following, recommendations appreciated. Continue Azactam and daptomycin. 2-D echo results pending. CT of right hip pending as patient has been refusing. Importance of test discussed at length with patient, patient agrees to test. Chest xray showed no active disease. CT abdomen and pelvis per radiologist showed no acute intra- abdominal findings. 2. Right hip and lower extremity pain. Lower extremity venous dopplers negative for DVT. Right hip xray per radiologist showed prior pen fixation of the right hip with severe degenerative change. Patient is s/p right hip replacement. Likely chronic pain. Continue home pain medication, SNOW REMOVING SUPERVISOR reviewed. 3. Depression. Psychiatry following, recommendations appreciated. Per psychiat rist, patient declines any psychiatric management at this time. Continue home Cymbalta. 4. Anemia. H&H downtrended. Continue to monitor CBC. No signs of acute bleeding. 5. CAD. No chest pain. Continue home Lipitor, Lisinopril, and metoprolol 6. Chronic systolic CHF exacerbation. Not in acute exacerbation. Continue lasix, metoprolol, and lisinopril 7. Hypertension. Continue metoprolol and lisinopril. 8. History of metastatic breast cancer. Patient follows at [facility] for "infusions." Next appointment is April 17, 2018 per patient, patient advised that she will need to reschedule as she is in the hospital. 9. GI/DVT prophylaxis. Protonix/heparin. 10. Patient is a full code. Case discussed in detail with patient regarding current diagnosis and treatment plan. All questions answered.
--- NOTE | 2018-04-17 01:33 | PN ---
DATE: 04/16/2018 SUBJECTIVE: The patient is in bed. The patient is seen earlier this morning, in no acute distress. Temperature is down. PHYSICAL EXAMINATION VITAL SIGNS: Temperature is 97, blood pressure is 108/60, and respiratory rate of 18. HEENT: Unremarkable. NECK: Supple. LUNGS: Have decreased breath sounds. HEART: Normal S1, S2. ABDOMEN: Soft and nontender. LABORATORY EXAMINATION: Reveals a white count of 14,000, hemoglobin of 7, and platelets of 265. BUN of 20 and creatinine of 0.9. Procalcitonin is 1.02. Urinalysis is noted. Toxicology is noted. Serology is noted. Microbiology reveals a gram-positive cocci. Identification and sensitivity is pending. ASSESSMENT AND PLAN: This is a 62-year-old female with history of breast cancer, mets to the bone, hypertension, osteoporosis, history of sensitive Staphylococcus aureus bacteremia, history of [id number] myocardial infarction, and anxiety. In 01/2018, the patient had sensitive Staphylococcus aureus bacteremia with no clear source, was given 4 weeks of daptomycin at that time, now recurred and returns with gram-positive cocci bacteremia. Currently on daptomycin and Azactam. Awaiting for repeat cultures. The patient notes to have an echo today. We will check identification and sensitivity. Jamel Valencia MD
[2018-04-17] MEDS: oxyCODONE 30 mg Immediate Release Tab PO PRN ×3 (02:27→20:43)
[2018-04-17] MEDS: Aztreonam 1 Gm in NS 100mL 100 ML IVPB SCH ×2 (05:31→14:17)
[2018-04-17 07:07] LABS: BASO # 0.02 K/mm3 (0.0-2.0); BASO % 0.2 % (0.0-3.0); EOS # 1.1 (0.0-0.7); EOS % 10.3 % (1.5-5.0); GRAN % 55.6 % (50.0-68.0); LYMPH # 2.1 (1.2-3.4); LYMPH % 19.6 % (22.0-35.0); MEAN CELL VOLUME 80.1 fl (80.0-105.0); MEAN CORPUSCULAR HEMOGLOBIN 24.5 pg (25.0-35.0); MEAN CORPUSCULAR HGB CONC 30.5 g/dl (31.0-37.0); MEAN PLATELET VOLUME 9.3 fl (7.0-11.0); MONO # 1.5 (0.1-0.6); MONO % 14.3 % (1.0-6.0); RBC 3.27 10^6/uL (3.5-6.1); RED CELL DISTRIBUTION WIDTH 17.1 % (11.5-14.5); WHITE BLOOD COUNT 10.8 10^3/uL (4.5-11.0)
[2018-04-17 07:29] LABS: ALB/GLOB RATIO 0.8 (1.1-1.8); ALBUMIN 3.1 g/dL (3.0-4.8); ALT/SGPT 28 U/L (7-56); AST/SGOT 39 U/L (14-36); BLOOD UREA NITROGEN 16 mg/dL (7-21); GFR NON-AFRICAN AMERICAN > 60
[2018-04-17] MEDS: Pantoprazole 40 mg EC Tab PO SCH (08:36)
--- NOTE | 2018-04-17 15:50 | CP.PCM.PN ---
<Félix Gomes - Last Filed: 04/17/18 15:51> Subjective - Date & Time of Evaluation Date of Evaluation: 04/17/18 Time of Evaluation: 07:00 - Subjective Subjective: Pt seen and examined this morning. Pt has no new complaints at this time. Pt denies chest pain, SOB, abdominal pain, fever or chills. Objective - Vital Signs/Intake and Output Vital Signs (last 24 hours): Temp Pulse Resp BP Pulse Ox 99.5 F 76 20 106/67 94 L 04/17/18 14:00 04/17/18 14:00 04/17/18 14:00 04/17/18 14:00 04/17/18 14:00 Intake and Output: 04/17/18 04/17/18 06:59 18:59 Output Total 650 Balance -650 - Medications Medications: Current Medications Atorvastatin Calcium (Lipitor) 40 mg PO DIN [facility] Last Admin: 04/16/18 17:33 Dose: 40 mg Docusate Sodium (Colace) 100 mg PO TID PRN PRN Reason: Constipation Duloxetine HCl (Cymbalta) 20 mg PO DAILY [facility] Last Admin: 04/17/18 10:19 Dose: 20 mg Furosemide (Lasix) 20 mg PO Q12 [facility] Last Admin: 04/17/18 10:20 Dose: 20 mg Gabapentin (Neurontin) 300 mg PO TID [facility]; Protocol Last Admin: 04/17/18 14:18 Dose: 300 mg Heparin Sodium (Porcine) (Heparin) 5,000 units SC Q8 [facility]; Protocol Last Admin: 04/17/18 14:18 Dose: 5,000 units Aztreonam (Azactam 1 Gm) 100 mls @ 100 mls/hr IVPB Q8 [facility]; Protocol Stop: 04/24/18 14:01 Last Admin: 04/17/18 14:17 Dose: 100 mls/hr Daptomycin 420 mg/ Sodium (Chloride) 100 mls @ 200 mls/hr IV Q24H [facility] Stop: 04/24/18 12:01 Last Admin: 04/17/18 12:28 Dose: 200 mls/hr Lisinopril (Zestril) 2.5 mg PO DAILY [facility] Last Admin: 04/17/18 10:19 Dose: 2.5 mg Metoprolol Tartrate (Lopressor) 50 mg PO BID [facility] Last Admin: 04/17/18 10:19 Dose: 50 mg Oxycodone HCl (Oxycodone Immediate Release Tab) 30 mg PO Q8H PRN PRN Reason: Pain, severe (8-10) Last Admin: 04/17/18 10:20 Dose: 30 mg Pantoprazole Sodium (Protonix Ec Tab) 40 mg PO ACB [facility] Last Admin: 04/17/18 08:36 Dose: 40 mg Quetiapine Fumarate (Seroquel) 12.5 mg PO HS PRN; Protocol PRN Reason: Agitation - Labs Labs: 04/17/18 06:20 04/17/18 06:20 PT 14.4 SECONDS (9.4-12.5) H 04/14/18 15:20 INR 1.26 04/14/18 15:20 APTT 33.5 Seconds (25.1-36.5) 04/14/18 15:20 - Head Exam Head Exam: ATRAUMATIC, NORMOCEPHALIC - Eye Exam Eye Exam: EOMI - ENT Exam ENT Exam: Mucous Membranes Moist - Neck Exam Neck Exam: Full ROM - Respiratory Exam Respiratory Exam: Clear to Ausculation Bilateral, NORMAL BREATHING PATTERN. absent: Accessory Muscle Use, Wheezes, Respiratory Distress - Cardiovascular Exam Cardiovascular Exam: +S1, +S2. absent: Diastolic murmur, Murmur - GI/Abdominal Exam GI & Abdominal Exam: Soft, Normal Bowel Sounds - Extremities Exam Extremities Exam: Full ROM. absent: Pedal Edema - Neurological Exam Neurological Exam: Alert, Awake, Oriented x3 - Psychiatric Exam Psychiatric exam: Normal Affect, Normal Mood - Skin Skin Exam: Dry, Intact, Warm Assessment and Plan - Assessment and Plan (Free Text) Assessment: This is a 62 year female with PMH of stage IV invasive ductal carcinoma/breast cancer with bone mets on chemotherapy (last session earlier in the month at [facility]), MSSA bacteremia, HTN, PAD, and OA who presented with AMS and hip pain. Plan: Sepsis, improved - Secondary to bacteremia (Gram + cocci) - Blood cultures NGTD - ESR 79, CRP 204 - Vanc was discontinued, after pt had allergic reaction, skin redness - Pt started on Azactam and Daptomycin - ECHO EF 51%, - CT of Right hip ordered, pt has refused multiple times, CT has not been obtained - ID consulted R LE pain (improved) - Duplex negative for DVT - Continue current pain control - Physical therapy HTN - Lopressor - Lisinopril, dose decreased to 2.5mg - Lasix, decrease to once daily Hypokalemia - 3.9 - replete PRN Depression - Psych consulted - Continue home Cymbalta Hx of breast Ca stage IV - Currently on chemotherapy - Continue pain management with Oxycodone and neurotin Hyperlipidemia - Continue home Lipitor Anemia of chronic disease - Hgb 8.0, stable - Continue to monitor Ppx - Heparin SC Pt seen, examined, assessment and plan discussed with Dr Summer Gomes PGY1, Internal Medicine Resident <Summer Shaffer R - Last Filed: 04/19/18 07:14> Objective - Vital Signs/Intake and Output Vital Signs (last 24 hours): Temp Pulse Resp BP Pulse Ox 98.7 F 70 20 115/64 98 04/18/18 06:00 04/18/18 09:10 04/18/18 06:00 04/18/18 09:10 04/18/18 06:00 - Labs Labs: 04/18/18 06:20 04/18/18 06:20 PT 14.4 SECONDS (9.4-12.5) H 04/14/18 15:20 INR 1.26 04/14/18 15:20 APTT 33.5 Seconds (25.1-36.5) 04/14/18 15:20 Attending/Attestation - Attestation I have personally seen and examined this patient.: Yes I have fully participated in the care of the patient.: Yes I have reviewed all pertinent clinical information, including history, physical exam and plan: Yes Notes (Text): Patient seen and examined by me with resident at 9:40 AM on 04/17/18. Case including HPI, physical exam, and assessment and plan discussed with resident. Agree with above with following additions/corrections. Patient is a 62-year-old female past medical history significant for Stage 4 invasive ductal carcinoma of the breast with metastases to the bone on chemotherapy, MSSA bacteremia, hypertension, coronary artery disease, osteoarthritis, history of right hip fracture, ankle fracture, sepsis, toxic metabolic encephalopathy, anemia, and systolic CHF that presented to the emergency room with right lower extremity erythema and pain after patient's son-in-law found patient altered and crying. Patient states that she feels fine. Patient still refusing CT of right hip. She states "I dont need the scan." Importance of scan once again discussed with patient. Patient still refusing. Patient denies chest pain or shortness of breath. No palpitations. No headaches or dizziness. No fevers or chills. No nausea, vomiting, or abdominal pain. No dysuria. Physical exam: General: Awake and alert sitting up in bed in no acute distress HEENT: Normocephalic, atraumatic. Extraocular muscles intact, pupils equal and reactive, no scleral icterus. Oropharynx is pink and moist. Neck is supple. Cardiovascular: Regular rhythm. Normal S1 and S2. No murmurs, rubs, or gallops appreciated Pulmonary: Normal respiratory effort. No rhonchi, rales, or wheezing appreciated. Gastrointestinal: Soft, nondistended. Nontender. Positive bowel sounds all 4 quadrants. No guarding. Musculoskeletal: Moves all extremities. No calf tenderness. Trace right lower extremity edema. Decreased range of motion at right hip. Central nervous system: AAOx 3. Dermatologic: Skin warm and dry. Assessment and plan: Patient is a 62-year-old female past medical history significant for Stage 4 invasive ductal carcinoma of the breast with metastases to the bone on chemotherapy, MSSA bacteremia, hypertension, coronary artery disease, osteoarthritis, history of right hip fracture, ankle fracture, sepsis, toxic metabolic encephalopathy, anemia, and systolic CHF that presented to the emergency room with right lower extremity erythema and pain after patient's son-in-law found patient altered and crying. 1. Sepsis secondary to staph aureus bacteremia. Fever resolved. Leukocytosis resolved. Final blood cultures positive for staph aureus. Repeat blood cultures with no growth. ID following, recommendations appreciated. Continue daptomycin day #2 of 28 per ID. 2-D echo per director field services showed left ventricle is normal size, mild concentric left ventricular hypertrophy, left ventricular systolic function is low normal with an ejection fraction of 51%, right ventricular systolic function is normal, there is no pericardial effusion. CT of right hip pending as patient has been refusing. Importance of test discussed at length with patient, patient continues to refuse. Chest xray showed no active disease. CT abdomen and pelvis per radiologist showed no acute intra-abdominal findings. 2. Right hip and lower extremity pain. Likely chronic pain. Continue home pain medication, CR[employer] ANALYTICS MANAGER reviewed. Lower extremity venous dopplers negative for DVT. Right hip xray per radiologist showed prior pen fixation of the right hip with severe degenerative change. Patient is s/p right hip replacement. 3. Depression. Continue home Cymbalta. Psychiatry following, recommendations appreciated. Per psychiatrist, patient declines any psychiatric management at this time. 4. Anemia. H&H stable. Continue to monitor CBC. No signs of acute bleeding. 5. CAD. No chest pain. Continue home Lipitor, Lisinopril, and metoprolol 6. Chronic systolic CHF exacerbation. Not in acute exacerbation. Continue lasix, metoprolol, and lisinopril 7. Hypertension. Continue metoprolol and lisinopril. 8. History of metastatic breast cancer. Patient follows at [facility] for "infusions." Next appointment is today April 17, 2018 per patient, patient advised that she will need to reschedule as she is in the hospital. 9. GI/DVT prophylaxis. Protonix/heparin. 10. Patient is a full code. Case discussed in detail with patient regarding current diagnosis and treatment plan. All questions answered.
--- NOTE | 2018-04-18 00:41 | PN ---
DATE: 04/17/2018 SUBJECTIVE: The patient is in bed, in no acute distress, nontoxic. PHYSICAL EXAMINATION VITAL SIGNS: Temperature is 99, blood pressure is 120/60, respiratory rate 20, heart rate of 76. HEENT: Unremarkable. NECK: Supple. LUNGS: Decreased breath sounds. HEART: Normal S1 and S2. ABDOMEN: Soft, nontender. LABORATORY EXAMINATION: Reveals white count down to 10,000, hemoglobin of 8, platelets of 281. Chemistries reveal a BUN of 16 and creatinine of 0.7. Urinalysis is noted. Toxicology is noted. Serology is noted. Influenza is negative. The patient had an HIV in 2017, which was negative. Microbiology reveals oxacillin-sensitive Staph aureus in both bottles of blood cultures. Repeat blood cultures from yesterday, no growth. The patient had an echo today with no evidence of vegetations. MEDICATIONS: Review of orders reveals the patient to be on daptomycin. ASSESSMENT AND PLAN: A 62-year-old female with a history of breast cancer, metastasis to the bone; hypertension; osteoporosis; history of sensitive Staphylococcus aureus bacteremia, history of non-ST elevation myocardial infarction, anxiety. Sensitive Staphylococcus aureus with no clear source in the past, was treated for four weeks with daptomycin and now returns with sensitive Staphylococcus aureus bacteremia again. There is a questionable history of beta-lactam reaction in the past and currently on daptomycin, today is day #2 of 28 days, with a sedimentation rate of 79 and C-reactive protein of 204, although the patient does have malignancy which also . The source of bacteremia is not clear. Overall, prognosis is poor. Jamel Valencia MD
[2018-04-18] MEDS: oxyCODONE 30 mg Immediate Release Tab PO PRN ×2 (05:40→14:22)
[2018-04-18 06:27] VITALS: BP 115/64
[2018-04-18 06:50] LABS: BASO # 0.02 K/mm3 (0.0-2.0); BASO % 0.2 % (0.0-3.0); EOS # 0.9 (0.0-0.7); EOS % 8.9 % (1.5-5.0); GRAN # 5.19 (1.4-6.5); GRAN % 54.5 % (50.0-68.0); LYMPH # 1.9 (1.2-3.4); LYMPH % 20.4 % (22.0-35.0); MEAN CELL VOLUME 79.8 fl (80.0-105.0); MEAN CORPUSCULAR HEMOGLOBIN 24.8 pg (25.0-35.0); MEAN CORPUSCULAR HGB CONC 31.1 g/dl (31.0-37.0); MEAN PLATELET VOLUME 9.3 fl (7.0-11.0); MONO # 1.5 (0.1-0.6); RBC 3.22 10^6/uL (3.5-6.1); RED CELL DISTRIBUTION WIDTH 17.2 % (11.5-14.5); WHITE BLOOD COUNT 9.5 10^3/uL (4.5-11.0)
[2018-04-18 07:19] LABS: ALB/GLOB RATIO 0.8 (1.1-1.8); ALT/SGPT 32 U/L (7-56); AST/SGOT 41 U/L (14-36); BLOOD UREA NITROGEN 15 mg/dL (7-21); CALCIUM 8.8 mg/dL (8.4-10.5); GFR NON-AFRICAN AMERICAN > 60
[2018-04-18] MEDS: Pantoprazole 40 mg EC Tab PO SCH (07:23)
[2018-04-18] MEDS ORDERED: Potassium Chloride 20 mEq ER Tab PO STA (07:33)
[2018-04-18 09:12] VITALS: PULSE 70
[2018-04-18 09:55] VITALS: RESP 20; TEMP 98.7; O2SAT 98
--- NOTE | 2018-04-18 13:35 | CP.PCM.PN ---
Subjective - Date & Time of Evaluation Date of Evaluation: 04/18/18 Time of Evaluation: 09:40 - Subjective Subjective: Still having intermittent aches and pains all over her body, no fevers, non- toxic. Objective - Vital Signs/Intake and Output Vital Signs (last 24 hours): Temp Pulse Resp BP Pulse Ox 98.1 F 69 18 115/64 99 04/18/18 06:00 04/18/18 06:00 04/18/18 06:00 04/18/18 06:00 04/18/18 06:00 Intake and Output: 04/17/18 04/18/18 18:59 06:59 Intake Total 200 540 Balance 200 540 - Medications Medications: Current Medications Atorvastatin Calcium (Lipitor) 40 mg PO DIN [facility] Last Admin: 04/17/18 17:41 Dose: 40 mg Docusate Sodium (Colace) 100 mg PO TID PRN PRN Reason: Constipation Duloxetine HCl (Cymbalta) 20 mg PO DAILY [facility] Last Admin: 04/17/18 10:19 Dose: 20 mg Furosemide (Lasix) 20 mg PO Q12 [facility] Last Admin: 04/17/18 10:20 Dose: 20 mg Gabapentin (Neurontin) 300 mg PO TID [facility]; Protocol Last Admin: 04/17/18 17:41 Dose: 300 mg Heparin Sodium (Porcine) (Heparin) 5,000 units SC Q8 [facility]; Protocol Last Admin: 04/18/18 05:40 Dose: 5,000 units Daptomycin 420 mg/ Sodium (Chloride) 100 mls @ 200 mls/hr IV Q24H [facility] Stop: 04/24/18 12:01 Last Admin: 04/17/18 12:28 Dose: 200 mls/hr Lisinopril (Zestril) 2.5 mg PO DAILY [facility] Last Admin: 04/17/18 10:19 Dose: 2.5 mg Metoprolol Tartrate (Lopressor) 50 mg PO BID [facility] Last Admin: 04/17/18 17:42 Dose: 50 mg Oxycodone HCl (Oxycodone Immediate Release Tab) 30 mg PO Q8H PRN PRN Reason: Pain, severe (8-10) Last Admin: 04/18/18 05:40 Dose: 30 mg Pantoprazole Sodium (Protonix Ec Tab) 40 mg PO ACB [facility] Last Admin: 04/17/18 08:36 Dose: 40 mg Quetiapine Fumarate (Seroquel) 12.5 mg PO HS PRN; Protocol PRN Reason: Agitation Last Admin: 04/17/18 20:42 Dose: 12.5 mg - Labs Labs: 04/17/18 06:20 04/17/18 06:20 PT 14.4 SECONDS (9.4-12.5) H 04/14/18 15:20 INR 1.26 04/14/18 15:20 APTT 33.5 Seconds (25.1-36.5) 04/14/18 15:20 - Constitutional Appears: No Acute Distress, Chronically Ill - Head Exam Head Exam: NORMAL INSPECTION - Neck Exam Neck Exam: absent: Meningismus - Respiratory Exam Respiratory Exam: Decreased Breath Sounds - Cardiovascular Exam Cardiovascular Exam: +S1, +S2 - GI/Abdominal Exam GI & Abdominal Exam: Soft. absent: Tenderness Assessment and Plan - Assessment and Plan (Free Text) Plan: Assessment MSSA bacteremia, source is unclear, R/O endovascular infection questionable beta lactam allergy bilateral lower extremity edema probably due to venous stasis, no evidence of cellulitis history of severe sepsis due to methicillin-sensitive Staph aureus bacteremia, S/P treatment with 4-6 weeks of IV antibiotics elevated troponins R/O NSTEMI metastatic breast cancer on chemotherapy history of maculopapular rash with eosinophilia, consider allergic reaction R/O drug-induced history of sepsis due to Methicillin-sensitive Staph aureus bacteremia HTN osteoporosis former drug user Plan will continue Daptomycin day 3 of at least 28 days 2D echo is negative blood cx repeated on are negative will continue to monitor clinically discussed with medical team
--- NOTE | 2018-04-18 18:14 | CP.PCM.DIS ---
Provider - Provider Date of Admission: 04/14/18 17:21 Attending physician: Summer Shaffer DO Primary care physician: MARIA DE JESUS FAMILY PROVIDER Consults: 04/15/18 00:35 Nursing Referral for Palliative Care Routine Comment: palliative care score 8 Physician Instructions: Reason For Exam: protocol 04/15/18 00:36 Social Work Referral Routine Comment: baylock risk assessment score Physician Instructions: Reason For Exam: protocol 04/14/18 17:35 Infectious Disease Consult Routine Comment: Consulting Provider: Sav Chung Consulting Physician: Sav Chung Reason for Consult: fever+leukocytosis; hx of mssa bacteremia 04/14/18 17:46 Psychiatry Consult Routine Comment: Consulting Provider: Sandra Valderrama Consulting Physician: Sandra Valderrama Reason for Consult: depression 04/14/18 19:16 Case Management Referral Routine Comment: Physician Instructions: Reason For Exam: skilled nursing placement? Reason for Referral: [place] Machine Operator Eval Time Spent in preparation of Discharge (in minutes): 35 Diagnosis - Discharge Diagnosis (1) HTN (hypertension) Status: Acute Priority: High (2) Sepsis Status: Acute Priority: High (3) Hypokalemia Status: Acute Priority: High (4) Hyperlipemia Status: Chronic Priority: High Hospital Course - Lab Results Lab Results: Micro Results 04/16/18 06:15 Blood Blood Culture - Preliminary NO GROWTH AFTER 48 HOURS 04/16/18 05:30 Blood Blood Culture - Preliminary NO GROWTH AFTER 48 HOURS 04/14/18 15:58 Blood-Venous Blood Culture - Final Staphylococcus Aureus 04/14/18 15:58 Blood-Venous Gram Stain - Final 04/14/18 15:20 Blood-Venous Blood Culture - Final Staphylococcus Aureus 04/14/18 15:20 Blood-Venous Gram Stain - Final 04/14/18 15:20 Urine,Miller Urine Culture - Final MULTIPLE SPECIES. SUGGEST REPEAT SPECIMEN. Most Recent Lab Values WBC 9.5 10^3/uL (4.5-11.0) 04/18/18 06:20 RBC 3.22 10^6/uL (3.5-6.1) L 04/18/18 06:20 Hgb 8.0 g/dL (12.0-16.0) L 04/18/18 06:20 Hct 25.7 % (36.0-48.0) L 04/18/18 06:20 MCV 79.8 fl (80.0-105.0) L 04/18/18 06:20 MCH 24.8 pg (25.0-35.0) L 04/18/18 06:20 MCHC 31.1 g/dl (31.0-37.0) 04/18/18 06:20 RDW 17.2 % (11.5-14.5) H 04/18/18 06:20 Plt Count 239 10^3/uL (120.0-450.0) 04/18/18 06:20 MPV 9.3 fl (7.0-11.0) 04/18/18 06:20 Gran % 54.5 % (50.0-68.0) 04/18/18 06:20 Lymph % (Auto) 20.4 % (22.0-35.0) L 04/18/18 06:20 Darke % (Auto) 16.0 % (1.0-6.0) H 04/18/18 06:20 Eos % (Auto) 8.9 % (1.5-5.0) H 04/18/18 06:20 Baso % (Auto) 0.2 % (0.0-3.0) 04/18/18 06:20 Gran # 5.19 (1.4-6.5) 04/18/18 06:20 Lymph # (Auto) 1.9 (1.2-3.4) 04/18/18 06:20 Darke # (Auto) 1.5 (0.1-0.6) H 04/18/18 06:20 Eos # (Auto) 0.9 (0.0-0.7) H 04/18/18 06:20 Baso # (Auto) 0.02 K/mm3 (0.0-2.0) 04/18/18 06:20 Neutrophils % (Manual) 90 % (50.0-70.0) H 04/14/18 15:20 Lymphocytes % (Manual) 2 % (22.0-35.0) L 04/14/18 15:20 Monocytes % (Manual) 8 % (1.0-6.0) H 04/14/18 15:20 Platelet Evaluation Normal (NORMAL) 04/14/18 15:20 Anisocytosis (manual) Slight 04/14/18 15:20 ESR 79 mm/hr (0.0-20.0) H 04/15/18 07:00 PT 14.4 SECONDS (9.4-12.5) H 04/14/18 15:20 INR 1.26 04/14/18 15:20 APTT 33.5 Seconds (25.1-36.5) 04/14/18 15:20 pO2 113 mm/Hg (30-55) H 04/14/18 15:57 VBG pH 7.42 (7.32-7.43) 04/14/18 15:57 VBG pCO2 41.0 (40-60) 04/14/18 15:57 VBG HCO3 26.6 mmol/l (21-28) 04/14/18 15:57 VBG Total CO2 27.9 mmol.L (22-28) 04/14/18 15:57 VBG O2 Sat (Calc) 100.0 % (40-65) H 04/14/18 15:57 VBG Base Excess 1.9 mmol/L (0.0-2.0) 04/14/18 15:57 VBG Potassium 3.7 mmol/L (3.6-5.2) 04/14/18 15:57 Sodium 132.0 mmol/L (132-148) 04/14/18 15:57 Chloride 100.0 mmol/L (98-107) 04/14/18 15:57 Glucose 123 mg/dl (65-105) H 04/14/18 15:57 Lactate 1.5 mmol/L (0.7-2.1) 04/14/18 15:57 FiO2 21.0 % 04/14/18 15:57 Sodium 134 mmol/L (132-148) 04/18/18 06:20 Potassium 3.4 mmol/L (3.6-5.0) L 04/18/18 06:20 Chloride 104 mmol/L (98-107) 04/18/18 06:20 Carbon Dioxide 28 mmol/L (21-33) 04/18/18 06:20 Anion Gap 7 (10-20) L 04/18/18 06:20 BUN 15 mg/dL (7-21) 04/18/18 06:20 Creatinine 0.7 mg/dl (0.7-1.2) 04/18/18 06:20 Est GFR ( Amer) > 60 04/18/18 06:20 Est GFR (Non-Af Amer) > 60 04/18/18 06:20 Random Glucose 104 mg/dL (70-110) 04/18/18 06:20 Calcium 8.8 mg/dL (8.4-10.5) 04/18/18 06:20 Phosphorus 2.3 mg/dL (2.5-4.5) L 04/14/18 15:20 Magnesium 1.8 mg/dL (1.7-2.2) 04/14/18 15:20 Total Bilirubin 0.7 mg/dL (0.2-1.3) 04/18/18 06:20 AST 41 U/L (14-36) H 04/18/18 06:20 ALT 32 U/L (7-56) 04/18/18 06:20 Alkaline Phosphatase 72 U/L (38-126) 04/18/18 06:20 Ammonia < 9 umol/L (9-33) L 04/14/18 15:20 Lactate Dehydrogenase 548 U/L (333-699) 04/14/18 15:20 Total Creatine Kinase 130 U/L (35-230) 04/14/18 15:20 Troponin I 0.01 ng/mL 04/14/18 15:20 C-Reactive Protein 204.00 mg/L (0.0-9.9) H 04/15/18 07:00 Total Protein 6.7 g/dL (5.8-8.3) 04/18/18 06:20 Albumin 3.0 g/dL (3.0-4.8) 04/18/18 06:20 Globulin 3.6 gm/dL 04/18/18 06:20 Albumin/Globulin Ratio 0.8 (1.1-1.8) L 04/18/18 06:20 Procalcitonin 1.02 NG/ML (0.19-0.49) H 04/14/18 20:19 Free T4 1.50 ng/dL (0.78-2.19) 04/15/18 07:00 TSH 3rd Generation 0.41 mIU/mL (0.46-4.68) L 01/01/19 06:45 Venous Blood Potassium 3.7 mmol/L (3.6-5.2) 04/14/18 15:57 Urine Color Yellow (YELLOW) 04/14/18 15:20 Urine Appearance Clear (CLEAR) 04/14/18 15:20 Urine pH 6.0 (4.7-8.0) 04/14/18 15:20 Ur Specific [place] 1.020 (1.005-1.035) 04/14/18 15:20 Urine Protein Negative mg/dL (<30 mg/dL) 04/14/18 15:20 Urine Glucose (UA) Negative mg/dL (NEGATIVE) 04/14/18 15:20 Urine Ketones Negative mg/dL (NEGATIVE) 04/14/18 15:20 Urine Blood Negative (NEGATIVE) 04/14/18 15:20 Urine Nitrate Negative (NEGATIVE) 04/14/18 15:20 Urine Bilirubin Negative (NEGATIVE) 04/14/18 15:20 Urine Urobilinogen 0.2 E.U./dL (<1 E.U./dL) 04/14/18 15:20 Ur Leukocyte Esterase Negative [place]/uL (NEGATIVE) 04/14/18 15:20 Urine Opiates Screen Positive (NEGATIVE) H 04/14/18 15:20 Urine Methadone Screen Negative (NEGATIVE) 04/14/18 15:20 Ur Barbiturates Screen Negative (NEGATIVE) 04/14/18 15:20 Ur Phencyclidine Scrn Negative (NEGATIVE) 04/14/18 15:20 Ur Amphetamines Screen Negative (NEGATIVE) 04/14/18 15:20 U Benzodiazepines Scrn Negative (NEGATIVE) 04/14/18 15:20 U Oth Cocaine Metabols Negative (NEGATIVE) 04/14/18 15:20 U Cannabinoids Screen Negative (NEGATIVE) 04/14/18 15:20 Alcohol, Quantitative < 10 mg/dL (0-10) 04/14/18 15:20 Influenza Typ A,B (EIA) Negative for flu a/b (NEGATIVE) 04/14/18 15:20 Blood Type A POSITIVE 04/14/18 20:19 Antibody Screen Negative 04/14/18 20:19 BBK History Checked Patient has bt 04/14/18 20:19 - Hospital Course Hospital Course: Upon Admission Pt is a 62 year female with PMH of stage IV invasive ductal carcinoma/breast cancer with bone mets on chemotherapy, MSSA bacteremia, HTN, CAD, and OA presenting to the hospital via EMS after son in law found patient altered and crying in pain. She states she began developing leg swelling associated with right leg pain but otherwise denies all other complaints at this time including CP, SOB, fevers, headaches, nausea, vomiting, back pain, abdominal pain, urinary complaints, numbness, tingling, diarrhea, constipation, nausea and vomiting. During Hospital Stay Pt was found to be septic and treated with daptomycin. Pt received an ECHO which did not show any vegetations. ID was consulted. CTAP was reviewed and found to be unremarkable. Discharge Pt was discharged to subacute rehab. A midline was placed for the pt 25 remaining days of daptomycin. Pt was aContinue to take your medications as prescribed: - Cymbalta 20 daily - Oxycodone 30 every 6 hours as needed for pain - lipitor 40 with dinner - lasix 20mg TWICE PER DAY. - Gabapentin 300 TID - Lisinopril 2.5 daily (THIS HAS BEEN DECREASED FROM YOUR PREVIOUS DOSE OF 5mg DAILY) - metoprolol tartrate 50 twice a day - protonix 40 daily - Seroquel 12.5 HS NEEDED FOR AGITATION Pt given script for weekly CBC, CMP, CPK, ESR, CRP. Pt advised to follow up with her oncologist and her primary care physician. - Date & Time of H&P Date of H&P: 04/18/18 Time of H&P: 09:00 Discharge Exam - Head Exam Head Exam: NORMAL INSPECTION - Eye Exam Eye Exam: EOMI - ENT Exam ENT Exam: Mucous Membranes Moist - Respiratory Exam Respiratory Exam: NORMAL BREATHING PATTERN. absent: Accessory Muscle Use - Cardiovascular Exam Cardiovascular Exam: +S1, +S2. absent: Diastolic murmur, Systolic Murmur - GI/Abdominal Exam GI & Abdominal Exam: Normal Bowel Sounds, Unremarkable. absent: Tenderness - Neurological Exam Neurological exam: Alert, Oriented x3 - Psychiatric Exam Psychiatric exam: Normal Affect, Normal Mood - Skin Skin Exam: Dry, Intact, Normal Color Discharge Plan - Discharge Medications Prescriptions: Lisinopril [Zestril] 2.5 mg PO DAILY #10 tab - Follow Up Plan Condition: STABLE Disposition: HOME/ ROUTINE Instructions: Sepsis in Adults, Blood Culture, Chronic Pain (DC), Altered Mental Status (DC), Breast Cancer (DC), Cellulitis (Skin Infection), Adult (DC), Fecal Impaction (DC), Daptomycin Additional Instructions: You are being discharged to subacute rehab. You will continue to be monitored while in subacute rehab. You are having a MID line placed for IV antibiotics. You will need 25 days of IV Daptomycin 420mg IVPB once daily. Your PICC LINE WILL NEED TO BE REMOVED after completing your course of antibiotics (AFTER 25 days from 04/18/18 which is on 05/14/18) Continue to take your medications as prescribed: - Cymbalta 20 daily - Oxycodone 30 every 6 hours as needed for pain - lipitor 40 with dinner - lasix 20mg TWICE PER DAY. - Gabapentin 300 TID - Lisinopril 2.5 daily (THIS HAS BEEN DECREASED FROM YOUR PREVIOUS DOSE OF 5mg DAILY) - metoprolol tartrate 50 twice a day - protonix 40 daily - Seroquel 12.5 HS NEEDED FOR AGITATION NOTE HOLD BLOOD PRESSURE MEDICATION IF BLOOD PRESSURE IS LESS THAN 105 systolic YOU WILL NEED WEEKLY LABS WHILE ON DAPTOMYCIN. THIS INCLUDES CBC, CMP, CPK, ESR, CRP. Please follow up with a primary care physician within 3-5 days after discharge from subacute rehab. If you do not have one, YOU WILL NEED TO CALL YOUR INSURANCE COMPANY TO SET YOU UP WITH A PRIMARY CARE DOCTOR THAT IS COVERED BY YOUR INSURANCE COMPANY Please follow up with your oncologist within 1 week of being discharged from subacute rehab and follow their instructions If your symptoms return, please go to the nearest emergency room as soon as possible Referrals: FAMILY PROVIDER,NO [Primary Care Provider] -
== END 2018-04-18 19:19 | DRG 584 ==
LOC: ED 13:41 → ERH 17:21 → 2RNO 20:35 → 5RNO 04-16 13:15
PROVIDERS: ADMIT Internal Medicine; ATTEND Hospitalist
PROC: 05HY33Z Insertion of Infusion Device into Upper Vein, Percutaneous Approach (ICD-10-PCS; principal; 2018-04-18)
DX: A41.01 Sepsis due to Methicillin susceptible Staphylococcus aureus (principal); I50.23 Acute on chronic systolic (congestive) heart failure; I11.0 Hypertensive heart disease with heart failure; C79.51 Secondary malignant neoplasm of bone; E87.6 Hypokalemia; C50.919 Malignant neoplasm of unspecified site of unspecified female breast; D63.8 Anemia in other chronic diseases classified elsewhere; I25.10 Atherosclerotic heart disease of native coronary artery without angina pectoris; E78.5 Hyperlipidemia, unspecified; F32.9 Major depressive disorder, single episode, unspecified; G89.29 Other chronic pain; I25.2 Old myocardial infarction; M81.0 Age-related osteoporosis without current pathological fracture; Z96.641 Presence of right artificial hip joint; I87.8 Other specified disorders of veins

== ENCOUNTER 2018-07-04 10:04 | Inpatient (IN) | payer MEDICARE, OTHER ==
--- NOTE | 2018-07-04 10:26 | ED PDOC ---
Arrival/HPI - General Chief Complaint: Hip Pain Time Seen by Provider: 07/04/18 10:06 Historian: Patient - History of Present Illness Narrative History of Present Illness (Text): 07/04/18 10:22 62 year old female, whose past medical history of hypertension, hyperlipidemia, stage IV breast cancer with metastases to bones, and left hip replacement (10 years ago), presents to the emergency department complaining of right knee and hip pain s/p fall earlier this morning. Patient states she ambulates with a walker on baseline. Of note, she states she had a PIC line that fell out by itself a few days ago. Patient denies any fevers, chills, headache, dizziness, chest pain, shortness of breath, dyspnea on exertion, cough, diaphoresis, abdominal pain, nausea, vomiting, diarrhea, back pain, neck pain, or any other complaint. Time/Duration: Prior to Arrival Symptom Onset: Gradual Symptom Course: Unchanged Activities at Onset: Light Context: Home Past Medical History - Provider Review Nursing Documentation Reviewed: Yes - Past History Past History: No Previous - Infectious Disease Hx of Infectious Diseases: None - Tetanus Immunization Tetanus Immunization: Unknown - Past Medical History Past Medical History: Non-Contributing - Cardiac Hx Pacemaker: No - Pulmonary Hx Respiratory Disorders: No - Neurological Hx Neurological Disorder: No - HEENT Hx HEENT Disorder: No - Renal Hx Renal Disorder: No - Endocrine/Metabolic Hx Endocrine Disorders: No - Hematological/Oncological Hx Cancer: Yes (Stage 4, breast CA mets to bone) - Integumentary Hx Dermatological Disorder: No - Musculoskeletal/Rheumatological Hx Arthritis: Yes - Gastrointestinal Hx Gastrointestinal Disorders: No - Genitourinary/Gynecological Hx Genitourinary Disorders: No - Psychiatric Hx Anxiety: Yes Hx Substance Use: No - Surgical History Hx Mastectomy: No - Anesthesia Hx Anesthesia: Yes Hx Anesthesia Reactions: No Hx Malignant Hyperthermia: No - Suicidal Assessment Feels Threatened In Home Enviroment: No Family/Social History - Physician Review Nursing Documentation Reviewed: Yes Family/Social History: No Known Family HX Smoking Status: Former Smoker Hx Alcohol Use: No Amount per day: 3 Hx Substance Use: No Hx Substance Use Treatment: No Allergies/Home Meds Allergies/Adverse Reactions: Allergies No Known Allergies Allergy (Verified 03/03/18 12:47) Home Medications: Home Meds Medication Instructions Recorded Confirmed Calcium Carbonate [Caltrate] 600 mg PO DAILY 04/15/18 04/15/18 Cholecalciferol (Vitamin D3) 1,000 unit PO DAILY 04/15/18 04/15/18 [Vitamin D3] DULoxetine [Cymbalta] 20 mg PO DAILY 04/15/18 04/15/18 Vitamin B Complex [Super B-50 1 cap PO DAILY 04/15/18 04/15/18 Complex] Review of Systems - Physician Review All systems were reviewed & negative as marked: Yes - Review of Systems Constitutional: absent: Fevers Respiratory: absent: SOB Cardiovascular: absent: Chest Pain Gastrointestinal: absent: Abdominal Pain, Diarrhea, Nausea, Vomiting Musculoskeletal: Other (right knee pain and right hip pain ). absent: Back Pain, Neck Pain Neurological: absent: Headache, Dizziness Physical Exam Vital Signs Reviewed: Yes Vital Signs Temp Pulse Resp BP Pulse Ox 07/04/18 10:19 98.2 F 107 H 18 164/89 H 100 Temperature: Afebrile Blood Pressure: Hypertensive Pulse: Tachycardic Respiratory Rate: Normal Appearance: Positive for: Non-Toxic, Unkept, Other (tearful and tremulous on exam) Pain Distress: None Mental Status: Positive for: Alert and Oriented X 3 - Systems Exam Head: Present: Atraumatic, Normocephalic Pupils: Present: PERRL Extroacular Muscles: Present: EOMI Conjunctiva: Present: Normal Mouth: Present: Dry. No: Moist Mucous Membranes, Normal Teeth (poor dentition) Neck: Present: Normal Range of Motion Respiratory/Chest: Present: Clear to Auscultation, Good Air Exchange. No: Respiratory Distress, Accessory Muscle Use Cardiovascular: Present: Regular Rate and Rhythm, Normal S1, S2. No: Murmurs Abdomen: No: Tenderness, Distention, Peritoneal Signs Back: Present: Normal Inspection Upper Extremity: Present: Normal Inspection. No: Cyanosis, Edema Lower Extremity: No: Edema, Normal ROM (inability to extend the right knee, knee kept in passive flexion ) Neurological: Present: GCS=15, CN II-XII Intact, Speech Normal Skin: Present: Warm, Dry, Normal Color. No: Rashes Psychiatric: Present: Alert, Oriented x 3, Normal Insight, Normal Concentration Medical Decision Making ED Course and Treatment: 07/04/18 10:22 Impression: 62 year old female who presents to the emergency department complaining of right knee and right hip pain. Plan: -- Labs -- Toradol -- Right hip X-ray -- Right knee X-ray -- Urinalysis -- Reassess and disposition Prior Visits: Notes and results from previous visits were reviewed. Progress Notes: 07/04/18 13:17 Labs reviewed with leukocytosis of 14 noted with no localized source. When interrogated, patient states she is being treated on oral antibiotics for an infection from her last admission from another hospital. She is initially noted to be sleeping at the bedside and awakened, requesting additional analgesics. 07/04/18 13:19 Jarrod the psychotherapist social worker saw patient at bed side and has arranged for a home health aid to assist the patient at home. She does not meet admission criteria at this time and will be seen at home by pastoral care services once she is discharged. 07/04/18 14:[address] Silva(hospitalist) who accepts patient into his care. - Lab Interpretations Lab Results: 07/04/18 10:35 07/04/18 10:35 Lab Results 07/04/18 11:27: Urine Color Yellow, Urine Appearance Clear, Urine pH 8.0, Ur Specific [place] 1.015, Urine Protein Negative, Urine Glucose (UA) Negative, Uri ne Ketones Negative, Urine Blood Trace-intact H, Urine Nitrate Negative, Urine Bilirubin Negative, Urine Urobilinogen 0.2, Ur Leukocyte Esterase Negative, Urine RBC 1 - 3 H, Urine WBC 0 - 2, Ur Epithelial Cells 4 - 5, Urine Bacteria Few 07/04/18 10:35: Sodium 140, Potassium 3.5 L, Chloride 106, Carbon Dioxide 24, Anion Gap 14, BUN 15, Creatinine 0.5 L, Est GFR ( Amer) > 60, Est GFR (Non-Af Amer) > 60, Random Glucose 89, Calcium 9.7, Total Bilirubin 1.0, AST 46 H, ALT 8, Alkaline Phosphatase 108, Total Protein 8.5 H, Albumin 4.0, Globulin 4.5, Albumin/Globulin Ratio 0.9 L 07/04/18 10:35: WBC 14.1 H D, RBC 4.27, Hgb 10.6 L D, Hct 33.9 L, MCV 79.4 L, MCH 24.8 L, MCHC 31.3, RDW 16.9 H, Plt Count 164, MPV 9.7, Neut % (Auto) 78.5 H, Lymph % (Auto) 6.7 L, [place] % (Auto) 14.7 H, Eos % (Auto) 0.0 L, Baso % (Auto) 0.1, Lymph # (Auto) 0.9 L, [place] # (Auto) 2.1 H, Eos # (Auto) 0.0, Baso # (Auto) 0.02, Absolute Neuts (auto) 11.09 H I have reviewed the lab results: Yes - RAD Interpretation Narrative RAD Interpretations (Text): 07/04/18 13:10 Right hip X-ray reviewed by radiologist, shows: IMPRESSION: No acute fracture Left knee X-ray reviewed by radiologist, shows: IMPRESSION: Normal radiographs of the left knee. Chest X-ray reviewed by radiologist, shows: IMPRESSION: No active disease. Right knee X-ray reviewed by radiologist, shows: IMPRESSION: No evidence of fracture Salvage Engineer: Radiologist - Medication Orders Current Medication Orders: 07/04/18 13:25 Discontinued Medications Ketorolac Tromethamine (Toradol) 30 mg IVP STAT STA Stop: 07/04/18 10:30 Last Admin: 07/04/18 10:41 Dose: 30 mg MAR Pain Assessment Document 07/04/18 10:41 GMD (Rec: 07/04/18 10:41 [place]MD [facility] [place] Pain Reassessment Is this a pain reassessment? No IVP Administration Document 07/04/18 10:41 GMD (Rec: 07/04/18 10:41 [place] [facility] [place] Charges for Administration # of IVP Administrations 1 Oxycodone/Acetaminophen (Percocet 5/325 Mg Tab) 1 tab PO STAT STA Stop: 07/04/18 11:02 Last Admin: 07/04/18 11:07 Dose: 1 tab MAR Pain Assessment Document 07/04/18 11:07 GMD (Rec: 07/04/18 11:07 GMD [facility] [place] Pain Reassessment Is this a pain reassessment? No - Scribe Statement The provider has reviewed the documentation as recorded by the Scribsabas Tolbert Provider Scribe Attestation: All medical record entries made by the Scribe were at my direction and personally dictated by me. I have reviewed the chart and agree that the record accurately reflects my personal performance of the history, physical exam, medical decision making, and the department course for this patient. I have also personally directed, reviewed, and agree with the discharge instructions and disposition. Disposition/Present on Arrival - Present on Arrival Any Indicators Present on Arrival: No History of DVT/PE: No History of Uncontrolled Diabetes: No Urinary Catheter: No History of Decub. Ulcer: No History Surgical Site Infection Following: None - Disposition Have Diagnosis and Disposition been Completed?: Yes Diagnosis: Fall, Chronic hip pain Disposition: HOSPITALIZED Disposition Time: 14:00 Patient Plan: Admission Condition: FAIR
[2018-07-04 10:48] LABS: BASO # 0.02 K/mm3 (0.0-2.0); BASO % 0.1 % (0.0-3.0); HEMOGLOBIN 10.6 g/dL (12.0-16.0); LYMPH # 0.9 (1.2-3.4); LYMPH % 6.7 % (22.0-35.0); MEAN CELL VOLUME 79.4 fl (80.0-105.0); MEAN CORPUSCULAR HEMOGLOBIN 24.8 pg (25.0-35.0); MEAN CORPUSCULAR HGB CONC 31.3 g/dl (31.0-37.0); MEAN PLATELET VOLUME 9.7 fl (7.0-11.0); MONO # 2.1 (0.1-0.6); MONO % 14.7 % (1.0-6.0); RBC 4.27 10^6/uL (3.5-6.1); RED CELL DISTRIBUTION WIDTH 16.9 % (11.5-14.5); WHITE BLOOD COUNT 14.1 10^3/uL (4.5-11.0)
[2018-07-04 10:53] LABS: ALB/GLOB RATIO 0.9 (1.1-1.8); ALT/SGPT 8 U/L (7-56); AST/SGOT 46 U/L (14-36); BLOOD UREA NITROGEN 15 mg/dL (7-21); CALCIUM 9.7 mg/dL (8.4-10.5); GFR NON-AFRICAN AMERICAN > 60
[2018-07-04] MEDS ORDERED: Oxycodone/Acetaminophen 5/325 mg Tab PO STA (11:01)
[2018-07-04 11:38] LABS: URINE BILIRUBIN NEGATIVE (NEGATIVE); URINE BLOOD TRACE-INTACT (NEGATIVE); URINE GLUCOSE (UA) NEGATIVE (NEGATIVE); URINE LEUKOCYTE ESTERASE NEGATIVE Leu/uL (NEGATIVE); URINE PROTEIN NEGATIVE mg/dL (<30 mg/dL); URINE UROBILINOGEN 0.2 E.U./dL (<1 E.U./dL)
[2018-07-04 11:45] LABS: URINE APPEARANCE CLEAR (CLEAR); URINE COLOR YELLOW (YELLOW)
[2018-07-04 11:53] LABS: URINE BACTERIA FEW /hpf; URINE WBC 0 - 2 /hpf (0-6)
--- NOTE | 2018-07-04 12:26 | RAD ---
Date of service: 07/04/2018 PROCEDURE: CHEST RADIOGRAPH, 1 VIEW HISTORY: pain COMPARISON: 04/14/2018 FINDINGS: LUNGS: Mild chronic interstitial changes PLEURA: No pneumothorax or pleural fluid seen. CARDIOVASCULAR: No aortic atherosclerotic calcification present. Mild cardiomegaly OSSEOUS STRUCTURES: No significant abnormalities. VISUALIZED UPPER ABDOMEN: Normal. OTHER FINDINGS: None. IMPRESSION: No active disease.
--- NOTE | 2018-07-04 12:27 | RAD ---
Date of service: 07/04/2018 PROCEDURE: Left Knee Radiographs. HISTORY: Pain. COMPARISON: None. FINDINGS: BONES: Normal. No fracture. JOINTS: Normal. No osteoarthritis. JOINT EFFUSION: None. OTHER FINDINGS: None. IMPRESSION: Normal radiographs of the left knee.
--- NOTE | 2018-07-04 12:28 | RAD ---
Date of service: 07/04/2018 PROCEDURE: Right Knee Radiographs. HISTORY: fall COMPARISON: None. FINDINGS: BONES: Normal. No fracture. JOINTS: Normal. No osteoarthritis. JOINT EFFUSION: None. OTHER FINDINGS: None. IMPRESSION: No evidence of fracture
--- NOTE | 2018-07-04 12:31 | RAD ---
Date of service: 07/04/2018 PROCEDURE: Pelvis and right hip HISTORY: pain s/p fall COMPARISON: TECHNIQUE: Three views FINDINGS: There is chronic pin fixation in the right hip. The right femoral head is small in size and has a flattened contour. There is widening of the acetabulum. The findings are unchanged. There is no acute fracture IMPRESSION: No acute fracture
[2018-07-04] MEDS ORDERED: Morphine 4 mg/ml ISec IVP STA (14:21)
--- NOTE | 2018-07-04 16:35 | CP.PCM.HP ---
<Yonatan Lamb - Last Filed: 07/04/18 16:23> History of Present Illness - History of Present Illness History of Present Illness: IM H&P for Dr. Anne Service CC: fall with rt hip pain HPI: 62 F with a past medical history of HTN, HLD, stage 4 breast ca with bony mets, MSSA bacteremia, CAD, and OA presenting to the hospital via EMS after patient contacted her son in law s/p fall this morning. Patient is unaware of how she fell, only that she woke up on the floor. Patient subsequently called her son in law explaining that she couldn't get up on account of the pain she was in when she woke up. She usually has a home health aide visit her. She is complaining of right knee and hip pain s/p fall earlier this morning. Patient states she ambulates with a walker on baseline. Patient denies any fevers, chills, headache, dizziness, chest pain, shortness of breath, dyspnea on exertion, cough, diaphoresis, abdominal pain, nausea, vomiting, diarrhea, back pain, neck pain, or any other complaint. PMHx: stage IV invasive ductal carcinoma/breast cancer with bony, MSSA bacteremia, HTN, CAD, and OA SHx: denies etoh, smoking and drugs. Lives alone, has contact with Son in law PSHx: left hip surgery 10 yearsd ago, ankle surgery FamHx: father had unknown pelvic cancer, mother had CVA Allergies: denies Meds: gabapentin 600 mg TID, risperdone 0.5mg BID, cymbalta 20mg daily, methadone 5mg TID, Oxycodone 20 mg BID, ropinirole 0.25 mg HS prn, Ambien 10mg HS prn Present on Admission - Present on Admission Any Indicators Present on Admission: No Review of Systems - Review of Systems Review of Systems: As per HPI otherwise negative Past Patient History - Infectious Disease Hx of Infectious Diseases: None - Tetanus Immunizations Tetanus Immunization: Unknown - Past Social History Smoking Status: Former Smoker - CARDIAC Hx Pacemaker: No - PULMONARY Hx Respiratory Disorders: No - NEUROLOGICAL Hx Neurological Disorder: No - HEENT Hx HEENT Problems: No - RENAL Hx Chronic Kidney Disease: No - ENDOCRINE/METABOLIC Hx Endocrine Disorders: No - HEMATOLOGICAL/ONCOLOGICAL Hx Cancer: Yes (Stage 4, breast CA mets to bone) - INTEGUMENTARY Hx Dermatological Problems: No - MUSCULOSKELETAL/RHEUMATOLOGICAL Hx Arthritis: Yes - GASTROINTESTINAL Hx Gastrointestinal Disorders: No - GENITOURINARY/GYNECOLOGICAL Hx Genitourinary Disorders: No - PSYCHIATRIC Hx Anxiety: Yes Hx Substance Use: No - SURGICAL HISTORY Hx Mastectomy: No - ANESTHESIA Hx Anesthesia: Yes Hx Anesthesia Reactions: No Hx Malignant Hyperthermia: No Meds Allergies/Adverse Reactions: Allergies Allergy/AdvReac Type Severity Reaction Status Date / Time No Known Allergies Allergy Verified 03/03/18 12:47 Physical Exam - Constitutional Appears: No Acute Distress - Head Exam Head Exam: ATRAUMATIC, NORMAL INSPECTION, NORMOCEPHALIC - Eye Exam Eye Exam: EOMI, Normal appearance, PERRL Pupil Exam: NORMAL ACCOMODATION, PERRL - ENT Exam ENT Exam: Mucous Membranes Dry - Neck Exam Neck exam: Positive for: Normal Inspection - Respiratory Exam Respiratory Exam: Clear to Auscultation Bilateral, NORMAL BREATHING PATTERN - Cardiovascular Exam Cardiovascular Exam: Tachycardia, REGULAR RHYTHM - GI/Abdominal Exam GI & Abdominal Exam: Normal Bowel Sounds, Soft. absent: Tenderness - Extremities Exam Extremities exam: Positive for: normal inspection - Back Exam Back exam: absent: paraspinal tenderness, vertebral tenderness - Neurological Exam Neurological exam: Alert, CN II-XII Intact, Oriented x3 - Psychiatric Exam Psychiatric exam: Agitated, Anxious, Depressed - Skin Skin Exam: Dry, Intact, Normal Color, Warm Results - Vital Signs Recent Vital Signs: Last Vital Signs Temp 98.2 F 07/04/18 10:19 Pulse 96 H 07/04/18 15:43 Resp 18 07/04/18 15:43 BP 140/77 07/04/18 15:43 Pulse Ox 99 07/04/18 15:43 - Labs Result Diagrams: 07/04/18 10:35 07/04/18 10:35 Labs: Laboratory Results - last 24 hr 07/04/18 07/04/18 07/04/18 10:35 10:35 11:27 WBC 14.1 H D RBC 4.27 Hgb 10.6 L D Hct 33.9 L MCV 79.4 L MCH 24.8 L MCHC 31.3 RDW 16.9 H Plt Count 164 MPV 9.7 Neut % (Auto) 78.5 H Lymph % (Auto) 6.7 L [place] % (Auto) 14.7 H Eos % (Auto) 0.0 L Baso % (Auto) 0.1 Lymph # (Auto) 0.9 L [place] # (Auto) 2.1 H Eos # (Auto) 0.0 Baso # (Auto) 0.02 Absolute Neuts (auto) 11.09 H Sodium 140 Potassium 3.5 L Chloride 106 Carbon Dioxide 24 Anion Gap 14 BUN 15 Creatinine 0.5 L Est GFR ( Amer) > 60 Est GFR (Non-Af Amer) > 60 Random Glucose 89 Calcium 9.7 Total Bilirubin 1.0 AST 46 H ALT 8 Alkaline Phosphatase 108 Total Protein 8.5 H Albumin 4.0 Globulin 4.5 Albumin/Globulin Ratio 0.9 L Urine Color Yellow Urine Appearance Clear Urine pH 8.0 Ur Specific Agenda 1.015 Urine Protein Negative Urine Glucose (UA) Negative Urine Ketones Negative Urine Blood Trace-intact H Urine Nitrate Negative Urine Bilirubin Negative Urine Urobilinogen 0.2 Ur Leukocyte Esterase Negative Urine RBC 1 - 3 H Urine WBC 0 - 2 Ur Epithelial Cells 4 - 5 Urine Bacteria Few Assessment & Plan - Assessment and Plan (Free Text) Assessment: 62 F with a past medical history of HTN, HLD, stage 4 breast ca with bony mets, MSSA bacteremia, CAD, and OA presenting to the hospital via EMS after patient contacted her son in law s/p fall this morning. Hip/knee pain - knee xray, hip xray negative for fractures - Oxycodone 20mg q12 prn - gabapentin 600 TID - toradol and morphine in ED - PT eval and treat Leukocytosis - negative ua cxr - fu blood cx, ucx - afebrile - vss - continue to monitor HTN - lisinopril - continue to monitor Anxiety/depression/behavior adjustment - risperdone - cymbalta - depakote - Dr. Valderrama, Psych consulted GI/DVT ppx Seen discussed and reviewed with Dr. Anne <Fabiola Anne - Last Filed: 07/05/18 15:20> Results - Vital Signs Recent Vital Signs: Last Vital Signs Temp 99.5 F 07/05/18 06:00 Pulse 90 07/05/18 09:58 Resp 20 07/04/18 22:00 BP 141/73 07/05/18 09:58 Pulse Ox 96 07/04/18 22:00 - Labs Result Diagrams: 07/05/18 06:30 03/23/19 06:30 Labs: Laboratory Results - last 24 hr 07/05/18 07/05/18 06:30 06:30 WBC 14.1 H RBC 3.78 Hgb 9.2 L Hct 31.0 L MCV 82.0 MCH 24.3 L MCHC 29.7 L RDW 17.1 H Plt Count 170 MPV 9.9 Neut % (Auto) 74.7 H Lymph % (Auto) 9.5 L [place] % (Auto) 15.1 H Eos % (Auto) 0.5 L Baso % (Auto) 0.2 Lymph # (Auto) 1.3 [place] # (Auto) 2.1 H Eos # (Auto) 0.1 Baso # (Auto) 0.03 Absolute Neuts (auto) 10.52 H Sodium 140 Potassium 4.2 Chloride 107 Carbon Dioxide 27 Anion Gap 12 BUN 32 H Creatinine 0.8 Est GFR ( Amer) > 60 Est GFR (Non-Af Amer) > 60 Random Glucose 76 Calcium 8.9 Phosphorus 3.6 Magnesium 1.9 Total Bilirubin 1.0 AST 43 H ALT 7 Alkaline Phosphatase 87 Total Protein 7.4 Albumin 3.1 Globulin 4.4 Albumin/Globulin Ratio 0.7 L Attending/Attestation - Attestation I have personally seen and examined this patient.: Yes I have fully participated in the care of the patient.: Yes I have reviewed all pertinent clinical information: Yes Notes (Text): 07/05/18 14:49 Attending note; Patient seen and examined with resident and ER. Patient is alert and awake. Crying during the whole interview. Complaining of pain. Patient with extensive psychiatric history/anxiety. Not in any acute distress. Patient is a 62 Female with a past medical history of HTN, HLD, stage 4 breast cancer with bony mets, recent MSSA bacteremia, CAD, and arthritis presenting to the hospital via EMS after a fall. 1. Fall; significant gait instability. Patient also has right hip pain secondary to surgery. Patient had left ankle surgery in the past. Patient was recently released from rehab. Currently patient is not able to stand up. Significant pain in both legs. Will get physical therapy evaluation. X-ray of the right hip and both knees negative for any fracture. 2. Metastatic breast CA ; patient follows up with [facility]. 3. Leukocytosis; patient was recently treated with IV daptomycin 4 weeks for MSSA bacteremia. Currently afebrile and nontoxic. Monitor closely. 4. Hypertension; Continue lisinopril metoprolol. 5. Chronic pain syndrome; continue Tylenol, OxyContin. 6. Severe neuropathy; continue Neurontin. 7. Psychiatric disorder; continue Cymbalta, Depakote and Seroquel. psychiatric evaluation requested. Prognosis is poor secondary to multiple medical problems, noncompliance with follow-up and psychiatric disorder. Case discussed in detail with the patient regarding current diagnosis and treatment plan. \
[2018-07-04] MEDS ORDERED: Potassium Chloride 20 mEq ER Tab PO ONE (16:45)
[2018-07-04] MEDS: oxyCODONE 20 mg Immediate Release Tab PO PRN (17:05)
[2018-07-04] MEDS: Divalproex 250 mg DR (BID formulation) PO SCH (18:25)
[2018-07-04 20:45] VITALS: BMI 25.2
[2018-07-05] MEDS: oxyCODONE 20 mg Immediate Release Tab PO PRN ×2 (01:49→17:47)
[2018-07-05 07:28] LABS: BASO # 0.03 K/mm3 (0.0-2.0); BASO % 0.2 % (0.0-3.0); EOS # 0.1 (0.0-0.7); EOS % 0.5 % (1.5-5.0); HEMOGLOBIN 9.2 g/dL (12.0-16.0); LYMPH # 1.3 (1.2-3.4); LYMPH % 9.5 % (22.0-35.0); MEAN CORPUSCULAR HEMOGLOBIN 24.3 pg (25.0-35.0); MEAN CORPUSCULAR HGB CONC 29.7 g/dl (31.0-37.0); MEAN PLATELET VOLUME 9.9 fl (7.0-11.0); MONO # 2.1 (0.1-0.6); MONO % 15.1 % (1.0-6.0); RBC 3.78 10^6/uL (3.5-6.1); RED CELL DISTRIBUTION WIDTH 17.1 % (11.5-14.5); WHITE BLOOD COUNT 14.1 10^3/uL (4.5-11.0)
[2018-07-05] MEDS: Pantoprazole 40 mg EC Tab PO SCH (08:10)
[2018-07-05 09:04] LABS: ALB/GLOB RATIO 0.7 (1.1-1.8); ALBUMIN 3.1 g/dL (3.0-4.8); ALT/SGPT 7 U/L (7-56); AST/SGOT 43 U/L (14-36); BLOOD UREA NITROGEN 32 mg/dL (7-21); CALCIUM 8.9 mg/dL (8.4-10.5); GFR NON-AFRICAN AMERICAN > 60
[2018-07-05] MEDS: Cholecalciferol 1,000 INTLU TAB PO SCH (09:56)
[2018-07-05] MEDS: Divalproex 250 mg DR (BID formulation) PO SCH ×2 (09:56→21:14)
--- NOTE | 2018-07-05 11:42 | CP.PCM.PN ---
<Taurus Saavedra - Last Filed: 07/05/18 11:39> Subjective - Date & Time of Evaluation Date of Evaluation: 07/05/18 Time of Evaluation: 09:00 - Subjective Subjective: Taurus Saavedra PGY-1 Progress Note for Hospitalist Service Patient seen and evaluated at bedside. No acute events reported overnight. Febrile with Tmax 102.5 late yesterday. Resting comfortably upon presentation, but then becomes tearful when describing her physical ailments. When asked if she completed antibiotics in rehab, patient was unsure. Objective - Vital Signs/Intake and Output Vital Signs (last 24 hours): Temp Pulse Resp BP Pulse Ox 102.5 F H 90 20 141/73 96 07/05/18 05:36 07/05/18 09:58 07/04/18 22:00 07/05/18 09:58 07/04/18 22:00 - Medications Medications: Current Medications Acetaminophen (Tylenol 325mg Tab) 650 mg PO Q6H PRN PRN Reason: Fever >100.4 F Atorvastatin Calcium (Lipitor) 40 mg PO DIN [facility] Last Admin: 07/04/18 18:24 Dose: 40 mg Calcium Carbonate (Caltrate) 600 mg PO DAILY [facility] Last Admin: 07/05/18 09:55 Dose: 600 mg Cholecalciferol (Vitamin D) 1,000 intlu PO DAILY [facility] Last Admin: 07/05/18 09:56 Dose: 1,000 intlu Divalproex Sodium (Depakote Dr (*Bid*)) 250 mg PO AMHS [facility]; Protocol Duloxetine HCl (Cymbalta) 20 mg PO DAILY [facility] Last Admin: 07/05/18 09:55 Dose: 20 mg Gabapentin (Neurontin) 600 mg PO TID [facility]; Protocol Last Admin: 07/05/18 09:56 Dose: 600 mg Heparin Sodium (Porcine) (Heparin) 5,000 units SC Q12 [facility]; Protocol Last Admin: 07/05/18 09:57 Dose: 5,000 units Daptomycin 420 mg/ Sodium (Chloride) 100 mls @ 200 mls/hr IV Q24H [facility]; Protocol Stop: 07/10/18 09:16 Lisinopril (Zestril) 2.5 mg PO DAILY [facility] Last Admin: 07/05/18 09:57 Dose: 2.5 mg Metoprolol Tartrate (Lopressor) 50 mg PO BID [facility] Last Admin: 07/05/18 09:58 Dose: 50 mg Oxycodone HCl (Oxycodone Immediate Release Tab) 20 mg PO Q12 PRN PRN Reason: Pain, severe (8-10) Last Admin: 07/05/18 01:49 Dose: 20 mg Pantoprazole Sodium (Protonix Ec Tab) 40 mg PO ACB [facility] Last Admin: 07/05/18 08:10 Dose: 40 mg Quetiapine Fumarate (Seroquel) 12.5 mg PO HS [facility]; Protocol Ropinirole HCl (Requip) 0.25 mg PO HS PRN PRN Reason: Restlessness - Labs Labs: 07/05/18 06:30 07/05/18 06:30 - Additional Findings Additional findings: - Constitutional Appears: No Acute Distress - Head Exam Head Exam: ATRAUMATIC, NORMAL INSPECTION, NORMOCEPHALIC - Eye Exam Eye Exam: EOMI, Normal appearance Pupil Exam: NORMAL ACCOMODATION, PERRL - ENT Exam ENT Exam: Mucous Membranes Dry - Neck Exam Neck exam: Positive for: Normal Inspection - Respiratory Exam Respiratory Exam: Clear to Auscultation Bilateral, NORMAL BREATHING PATTERN - Cardiovascular Exam Cardiovascular Exam: Tachycardia, REGULAR RHYTHM - GI/Abdominal Exam GI & Abdominal Exam: Normal Bowel Sounds, Soft. absent: Tenderness - Extremities Exam Extremities exam: Positive for: normal inspection - Back Exam Back exam: absent: paraspinal tenderness, vertebral tenderness, R or L CVA tenderness - Neurological Exam Neurological exam: Alert, CN II-XII Intact, Oriented x3 - Psychiatric Exam Psychiatric exam: Agitated, Anxious, Depressed - Skin Skin Exam: Dry, Intact, Normal Color, Warm Assessment and Plan - Assessment and Plan (Free Text) Assessment: 62 F with a past medical history of HTN, HLD, stage 4 breast ca with bony mets, MSSA bacteremia, CAD, and OA presenting to the hospital via EMS s/p fall. Leukocytosis - Stable at 14, febrile overnight. Tylenol started as antipyretic - Negative ua and cxr, VSS - Gram pos cocci in clusters on blood cx, f/u ID and sensitivities - Begin Daptomycin - F/u urine cx - ID consulted - Dr. Valencia - recs appreciated - Continue to monitor Hip/knee pain - Knee xray, hip xray negative for fractures - Home Oxycodone 20mg q12 prn - Gabapentin 600 TID - PT eval and treat Normocytic Anemia - Seems to be at baseline today with Hgb 9.2 - Will continue to monitor HTN - Lisinopril - Continue to monitor Anxiety/depression/behavior adjustment - Ropinirole - Cymbalta - Noah Conley - Dr. Valderrama, Psych consulted - recs appreciated GI/DVT ppx Patient seen, case reviewed and plan approved by Dr. Anne. Taurus Saavedra, PGY-1 <Fabiola Anne - Last Filed: 07/05/18 15:23> Objective - Vital Signs/Intake and Output Vital Signs (last 24 hours): Temp Pulse Resp BP Pulse Ox 99.5 F 90 20 141/73 96 07/05/18 06:00 07/05/18 09:58 07/04/18 22:00 07/05/18 09:58 07/04/18 22:00 Intake and Output: 07/05/18 07/05/18 06:59 18:59 Intake Total 420 Balance 420 - Medications Medications: Current Medications Acetaminophen (Tylenol 325mg Tab) 650 mg PO Q6H PRN PRN Reason: Fever >100.4 F Atorvastatin Calcium (Lipitor) 40 mg PO DIN [facility] Last Admin: 07/04/18 18:24 Dose: 40 mg Calcium Carbonate (Caltrate) 600 mg PO DAILY [facility] Last Admin: 07/05/18 09:55 Dose: 600 mg Cholecalciferol (Vitamin D) 1,000 intlu PO DAILY [facility] Last Admin: 07/05/18 09:56 Dose: 1,000 intlu Divalproex Sodium (Yael Cho (*Bid*)) 250 mg PO AMHS [facility]; Protocol Duloxetine HCl (Cymbalta) 20 mg PO DAILY [facility] Last Admin: 07/05/18 09:55 Dose: 20 mg Gabapentin (Neurontin) 600 mg PO TID [facility]; Protocol Last Admin: 07/05/18 14:30 Dose: Not Given Heparin Sodium (Porcine) (Heparin) 5,000 units SC Q12 [facility]; Protocol Last Admin: 07/05/18 09:57 Dose: 5,000 units Daptomycin 420 mg/ Sodium (Chloride) 100 mls @ 200 mls/hr IV Q24H [facility]; Protocol Stop: 07/10/18 09:16 Last Admin: 07/05/18 11:58 Dose: 200 mls/hr Lisinopril (Zestril) 2.5 mg PO DAILY [facility] Last Admin: 07/05/18 09:57 Dose: 2.5 mg Metoprolol Tartrate (Lopressor) 50 mg PO BID [facility] Last Admin: 07/05/18 09:58 Dose: 50 mg Oxycodone HCl (Oxycodone Immediate Release Tab) 20 mg PO Q12 PRN PRN Reason: Pain, severe (8-10) Last Admin: 07/05/18 01:49 Dose: 20 mg Pantoprazole Sodium (Protonix Ec Tab) 40 mg PO ACB [facility] Last Admin: 07/05/18 08:10 Dose: 40 mg Quetiapine Fumarate (Seroquel) 12.5 mg PO HS [facility]; Protocol Ropinirole HCl (Requip) 0.25 mg PO HS PRN PRN Reason: Restlessness - Labs Labs: 07/05/18 06:30 07/05/18 06:30 Attending/Attestation - Attestation I have personally seen and examined this patient.: Yes I have fully participated in the care of the patient.: Yes I have reviewed all pertinent clinical information, including history, physical exam and plan: Yes Notes (Text): 07/05/18 15:20 Attending note; Patient seen and examined with resident. Patient is alert and awake. Patient is very anxious. Had a T-max of 102.5 last night. Patient is afebrile. still complaining of leg pain. Patient is a 62 Female with a past medical history of HTN, HLD, stage 4 breast cancer with bony mets, recent MSSA bacteremia, CAD, and arthritis presenting to the hospital via EMS after a fall. 1. Fall; significant gait instability. Patient also has right hip pain secondary to surgery. Patient had left ankle surgery in the past. Patient was recently released from rehab. Currently patient is not able to stand up. Significant pain in both legs. Will get physical therapy evaluation. X-ray of the right hip and both knees negative for any fracture. 2. Metastatic breast CA ; patient follows up with [facility]. 3. Fever/ leukocytosis; patient was recently treated with IV daptomycin 4 weeks for MSSA bacteremia. Started on IV daptomycin. Blood, urine culture ordered. ID evaluation requested. 4. Hypertension; Continue lisinopril metoprolol. 5. Chronic pain syndrome; continue Tylenol, OxyContin. 6. Severe neuropathy; continue Neurontin. 7. Psychiatric disorder; continue Cymbalta, Depakote and Seroquel. psychiatric evaluation requested. PT evaluation requested. Prognosis is poor secondary to multiple medical problems, noncompliance with follow-up and psychiatric disorder. Case discussed in detail with the patient regarding current diagnosis and treatment plan.
--- NOTE | 2018-07-05 16:55 | CON ---
DATE: 07/05/2018 HISTORY OF PRESENT ILLNESS: The patient is a 62-year-old female with serious medical issues. Please refer to medical note for further details, history of depression and anxiety, who is being treated on the medical floor after she presented status post fall on 07/04/2018. Psychiatry was contacted due to the patient's history of depression and anxiety; however, upon review of notes, it does not state that least concern at this time is her altered mental status. I met with the patient at bedside and she is really not oriented to current circumstance. She does not know what the current month or year, although she is superficially aware she is in the hospital. She repeats many of my questions and she cannot answer simple questions about her psychiatric history of current social history with any consistency. When I asked about depression, she indicates she does know when she struggles to respond and at times comes the rales when responding. The patient does not want to ; however, she consistent regarding that and does not appear to be responding to internal stimuli at this time unless her insight and judgment are poor due to her current disorientation. PAST PSYCHIATRIC HISTORY: Is unclear as the patient is unable to respond consistently and reliably; however, she denies any psychiatric inpatient hospitalizations and does report her psychiatric history do not know current psychiatric treatment, clear this is . SOCIAL HISTORY: The patient reports that she is not and that she lost her daughter and her daughter had . She has "no one." RELEVANT PSYCHIATRIC MEDICATIONS: Include; Cymbalta 2 mg daily, Depakote 250 mg two times a day, Seroquel 12.5 mg p.o. at bedtime, and Risperdal 0.5 mg b.i.d. scheduled. IMPRESSION: Delirium is that main concern at this time, although the patient does have a history of depression, anxiety, also that she can be elusive due to her altered mental status. RECOMMENDATIONS: We will continue with Cymbalta at current dose as well as, Depakote, although it is unclear why Depakote was initiated for her. The patient is on Seroquel and Risperdal and this pharmacy and this provider will optimize Seroquel and discontinue Risperdal to help with organization sleep and mood and psychiatry will continue to follow up. Next followup at 07/06/2018. Sandra Valderrama MD
[2018-07-06] MEDS: oxyCODONE 20 mg Immediate Release Tab PO PRN ×2 (05:44→19:23)
[2018-07-06 07:36] LABS: BASO # 0.05 K/mm3 (0.0-2.0); BASO % 0.4 % (0.0-3.0); EOS # 0.2 (0.0-0.7); EOS % 1.7 % (1.5-5.0); HEMOGLOBIN 9.4 g/dL (12.0-16.0); LYMPH # 1.3 (1.2-3.4); MEAN CELL VOLUME 82.8 fl (80.0-105.0); MEAN CORPUSCULAR HEMOGLOBIN 24.5 pg (25.0-35.0); MEAN CORPUSCULAR HGB CONC 29.7 g/dl (31.0-37.0); MEAN PLATELET VOLUME 9.8 fl (7.0-11.0); MONO # 1.5 (0.1-0.6); MONO % 11.9 % (1.0-6.0); RBC 3.83 10^6/uL (3.5-6.1); RED CELL DISTRIBUTION WIDTH 17.1 % (11.5-14.5); WHITE BLOOD COUNT 12.8 10^3/uL (4.5-11.0)
[2018-07-06] MEDS: Pantoprazole 40 mg EC Tab PO SCH (07:53)
[2018-07-06 07:57] LABS: ALB/GLOB RATIO 0.7 (1.1-1.8); ALBUMIN 3.1 g/dL (3.0-4.8); ALT/SGPT 11 U/L (7-56); AST/SGOT 32 U/L (14-36); BLOOD UREA NITROGEN 26 mg/dL (7-21); CALCIUM 8.9 mg/dL (8.4-10.5); GFR NON-AFRICAN AMERICAN > 60
[2018-07-06] MEDS: Cholecalciferol 1,000 INTLU TAB PO SCH (09:28)
[2018-07-06] MEDS: Divalproex 250 mg DR (BID formulation) PO SCH ×2 (09:28→21:11)
--- NOTE | 2018-07-06 11:43 | CP.PCM.PN ---
<Taurus Saavedra - Last Filed: 07/06/18 11:44> Subjective - Date & Time of Evaluation Date of Evaluation: 07/06/18 Time of Evaluation: 08:00 - Subjective Subjective: Taurus Saavedra PGY-1 Progress Note for Hospitalist Service Patient seen and evaluated at bedside. No acute events reported overnight. Febrile with Tmax 101.6 overnight. Resting comfortably upon presentation, but then cries out when asked to describe how she is feeling. Reports generalized pain, worse in her legs. Objective - Vital Signs/Intake and Output Vital Signs (last 24 hours): Temp Pulse Resp BP Pulse Ox 100.2 F H 95 H 20 141/73 94 L 07/06/18 07:53 07/06/18 09:28 07/06/18 06:00 07/06/18 09:28 07/06/18 06:00 Intake and Output: 07/06/18 07/06/18 06:59 18:59 Intake Total 360 Balance 360 - Medications Medications: Current Medications Acetaminophen (Tylenol 325mg Tab) 650 mg PO Q6H PRN PRN Reason: Fever >100.4 F Last Admin: 07/06/18 07:53 Dose: 650 mg Calcium Carbonate (Caltrate) 600 mg PO DAILY [facility] Last Admin: 07/06/18 09:28 Dose: 600 mg Cholecalciferol (Vitamin D) 1,000 intlu PO DAILY [facility] Last Admin: 07/06/18 09:28 Dose: 1,000 intlu Divalproex Sodium (Depakote Dr (*Bid*)) 250 mg PO AMHS [facility]; Protocol Last Admin: 07/06/18 09:28 Dose: 250 mg Duloxetine HCl (Cymbalta) 20 mg PO DAILY [facility] Last Admin: 07/06/18 09:28 Dose: 20 mg Gabapentin (Neurontin) 600 mg PO TID [facility]; Protocol Last Admin: 07/06/18 09:29 Dose: 600 mg Heparin Sodium (Porcine) (Heparin) 5,000 units SC Q12 [facility]; Protocol Last Admin: 07/06/18 09:29 Dose: 5,000 units Daptomycin 420 mg/ Sodium (Chloride) 100 mls @ 200 mls/hr IV Q24H [facility]; Protocol Stop: 07/10/18 09:16 Last Admin: 07/06/18 09:32 Dose: 200 mls/hr Lisinopril (Zestril) 2.5 mg PO DAILY [facility] Last Admin: 07/06/18 09:27 Dose: 2.5 mg Metoprolol Tartrate (Lopressor) 50 mg PO BID [facility] Last Admin: 07/06/18 09:28 Dose: 50 mg Oxycodone HCl (Oxycodone Immediate Release Tab) 20 mg PO Q12 PRN PRN Reason: Pain, severe (8-10) Last Admin: 07/06/18 05:44 Dose: 20 mg Pantoprazole Sodium (Protonix Ec Tab) 40 mg PO ACB [facility] Last Admin: 07/06/18 07:53 Dose: 40 mg Quetiapine Fumarate (Seroquel) 12.5 mg PO HS [facility]; Protocol Last Admin: 07/05/18 21:14 Dose: 12.5 mg Ropinirole HCl (Requip) 0.25 mg PO HS PRN PRN Reason: Restlessness - Labs Labs: 07/06/18 07:00 07/06/18 07:00 - Additional Findings Additional findings: - Constitutional Appears: No Acute Distress - Head Exam Head Exam: ATRAUMATIC, NORMAL INSPECTION, NORMOCEPHALIC - Eye Exam Eye Exam: EOMI, Normal appearance Pupil Exam: NORMAL ACCOMODATION, PERRL - ENT Exam ENT Exam: Mucous Membranes Dry - Neck Exam Neck exam: Positive for: Normal Inspection - Respiratory Exam Respiratory Exam: Clear to Auscultation Bilateral, NORMAL BREATHING PATTERN - Cardiovascular Exam Cardiovascular Exam: Tachycardia, REGULAR RHYTHM - GI/Abdominal Exam GI & Abdominal Exam: Normal Bowel Sounds, Soft. absent: Tenderness - Extremities Exam Extremities exam: Positive for: normal inspection - Back Exam Back exam: absent: paraspinal tenderness, vertebral tenderness, R or L CVA tenderness - Neurological Exam Neurological exam: Alert, CN II-XII Intact, Oriented x3 - Psychiatric Exam Psychiatric exam: Agitated, Anxious, Depressed - Skin Skin Exam: Dry, Intact, Normal Color, Warm Assessment and Plan - Assessment and Plan (Free Text) Assessment: 62 F with a past medical history of HTN, HLD, stage 4 breast ca with bony mets, MSSA bacteremia, CAD, and OA presenting to the hospital via EMS s/p fall. Leukocytosis - Stable, febrile overnight. Tylenol started as antipyretic - Negative ua and cxr, VSS - Gram pos cocci in clusters on blood cx, f/u ID and sensitivities - C/w Daptomycin - F/u urine cx - rapid flu negative - ID consulted - Dr. Valencia - recs appreciated. F/U UDS - ESR 114, CRP pending - Continue to monitor Hip/knee pain - Knee xray, hip xray negative for fractures - Home Oxycodone 20mg q12 prn - Gabapentin 600 TID - PT- unsteady gait, rec for MARYJANE Normocytic Anemia - Stable at baseline with Hgb 9.4 - Will continue to monitor HTN - Lisinopril - Continue to monitor Anxiety/depression/behavior adjustment - Ropinirole, Cymbalta, Depakote, Seroquel - Dr. Valderrama, Psych consulted - recs appreciated GI/DVT ppx with Protonix/Heparin Dispo: MARYJANE per PT, appreciate CM input Patient seen, case reviewed and plan approved by Dr. Anne. Taurus Saavedra, PGY-1 <Fabiola Anne - Last Filed: 07/06/18 13:03> Objective - Vital Signs/Intake and Output Vital Signs (last 24 hours): Temp Pulse Resp BP Pulse Ox 100.2 F H 95 H 20 141/73 94 L 07/06/18 07:53 07/06/18 09:28 07/06/18 06:00 07/06/18 09:28 07/06/18 06:00 Intake and Output: 07/06/18 07/06/18 06:59 18:59 Intake Total 360 Balance 360 - Medications Medications: Current Medications Acetaminophen (Tylenol 325mg Tab) 650 mg PO Q6H PRN PRN Reason: Fever >100.4 F Last Admin: 07/06/18 07:53 Dose: 650 mg Calcium Carbonate (Caltrate) 600 mg PO DAILY [facility] Last Admin: 07/06/18 09:28 Dose: 600 mg Cholecalciferol (Vitamin D) 1,000 intlu PO DAILY [facility] Last Admin: 07/06/18 09:28 Dose: 1,000 intlu Divalproex Sodium (Depakote Dr (*Bid*)) 250 mg PO [facility]; Protocol Last Admin: 07/06/18 09:28 Dose: 250 mg Duloxetine HCl (Cymbalta) 20 mg PO DAILY [facility] Last Admin: 07/06/18 09:28 Dose: 20 mg Gabapentin (Neurontin) 600 mg PO TID [facility]; Protocol Last Admin: 07/06/18 09:29 Dose: 600 mg Heparin Sodium (Porcine) (Heparin) 5,000 units SC Q12 [facility]; Protocol Last Admin: 07/06/18 09:29 Dose: 5,000 units Daptomycin 420 mg/ Sodium (Chloride) 100 mls @ 200 mls/hr IV Q24H [facility]; Protocol Stop: 07/10/18 09:16 Last Admin: 07/06/18 09:32 Dose: 200 mls/hr Lisinopril (Zestril) 2.5 mg PO DAILY [facility] Last Admin: 07/06/18 09:27 Dose: 2.5 mg Metoprolol Tartrate (Lopressor) 50 mg PO BID [facility] Last Admin: 07/06/18 09:28 Dose: 50 mg Oxycodone HCl (Oxycodone Immediate Release Tab) 20 mg PO Q12 PRN PRN Reason: Pain, severe (8-10) Last Admin: 07/06/18 05:44 Dose: 20 mg Pantoprazole Sodium (Protonix Ec Tab) 40 mg PO ACB [facility] Last Admin: 07/06/18 07:53 Dose: 40 mg Quetiapine Fumarate (Seroquel) 12.5 mg PO HS [facility]; Protocol Last Admin: 07/05/18 21:14 Dose: 12.5 mg Ropinirole HCl (Requip) 0.25 mg PO HS PRN PRN Reason: Restlessness - Labs Labs: 07/06/18 07:00 07/06/18 07:00 Attending/Attestation - Attestation I have personally seen and examined this patient.: Yes I have fully participated in the care of the patient.: Yes I have reviewed all pertinent clinical information, including history, physical exam and plan: Yes Notes (Text): 07/06/18 13:00 Attending note; Patient seen and examined with resident. Patient is alert and awake. Patient is very anxious. crying at times. Had a T-max of 101.6 last night. Patient is afebrile. still complaining of leg pain. Patient is a 62 Female with a past medical history of HTN, HLD, stage 4 breast cancer with bony mets, recent MSSA bacteremia, CAD, and arthritis presenting to the hospital via EMS after a fall. 1. Fall; significant gait instability. Currently patient is not able to stand up. Significant pain in both legs. physical therapy appreciated. subacute rehab recommended. X-ray of the right hip and both knees negative for any fracture. 2. Metastatic breast CA ; patient follows up with [facility]. 3. Fever/ leukocytosis; patient was recently treated with IV daptomycin 4 weeks for MSSA bacteremia. Started on IV daptomycin. Blood cultures positive for gram-positive cocci. Identification pending. ID evaluation appreciated. Echocardiogram ordered. 4. Hypertension; Continue lisinopril metoprolol. 5. Chronic pain syndrome; continue Tylenol, OxyContin. 6. Severe neuropathy; continue Neurontin. 7. Psychiatric disorder; continue Cymbalta, Depakote and Seroquel. psychiatric evaluation appreciated. Medication adjusted. Follow-up with psychiatrist closely. Prognosis is poor secondary to multiple medical problems, noncompliance with follow-up and psychiatric disorder. Case discussed in detail with the patient regarding current diagnosis and treatment plan. we will Discuss with rifle case repairer for discharge planning.
--- NOTE | 2018-07-06 12:24 | CT ---
Date of service: 07/06/2018 PROCEDURE: CT HEAD WITHOUT CONTRAST. HISTORY: change of mental status COMPARISON: 04/14/2018. TECHNIQUE: Axial computed tomography images were obtained through the head/brain without intravenous contrast. Radiation dose: Total exam DLP = 890.43 mGy-cm. This CT exam was performed using one or more of the following dose reduction techniques: Automated exposure control, adjustment of the mA and/or kV according to patient size, and/or use of iterative reconstruction technique. FINDINGS: HEMORRHAGE: No intracranial hemorrhage. BRAIN: Suboptimal evaluation due to patient positioning. There are mild chronic microangiopathic changes. There is no mass, mass effect or abnormal extra-axial fluid collection. There is no territorial infarction. The midline sagittal structures are normal. VENTRICLES: There is mild age-related global parenchymal volume loss and proportionate enlargement of the ventricles and cortical sulci. CALVARIUM: There is no calvarial fracture or extracranial soft tissue swelling. PARANASAL SINUSES: Predominantly clear. MASTOID AIR CELLS: Predominantly clear. OTHER FINDINGS: None. IMPRESSION: Suboptimal examination due to patient positioning. No acute intracranial abnormality.
--- NOTE | 2018-07-06 12:41 | CON ---
DATE: 07/06/2018 The patient is seen earlier today in 572, bed 2. CHIEF COMPLAINT: Positive blood cultures x1 day. HISTORY OF PRESENT ILLNESS: This is a 62-year-old female with past medical history of recurrent sensitive Staph aureus bacteremia. She has had PICC lines in the past. She also had recently a PICC line, which fell out and she has breast cancer with bone metastases and has been on chemotherapy in the past. The patient with hypertension and osteoporosis, ex-drug user, who is admitted on this admission. Blood cultures were done, which were reported to be positive. Infectious disease consultation requested. The patient this morning is a poor historian. She is lethargic. She is not communicating and unable to give any history. The history is obtained from nursing staff and in chart that is available to us at this time. There have been fevers reported. The patient continued to have fevers, had fever yesterday up to 102 according to nursing staff. She is not communicating. She is lethargic and in poor condition. REVIEW OF SYSTEMS: A 12-point review of systems is performed. PAST MEDICAL HISTORY: Significant for recurrent sensitive Staph aureus bacteremia. The patient had Staph aureus bacteremia in March 2018, which was sensitive Staph aureus bacteremia. The patient also had sensitive Staph aureus bacteremia in January 2018 and the patient also had recurrent bacteremia in June 2017, which was also sensitive Staph aureus bacteremia and in 2017, the patient had 3 episodes of Staph aureus bacteremia. Past medical history is significant for breast cancer with bone metastasis, had chemotherapy, hypertension, osteoporosis, cardiac arrhythmia, high cholesterol. PAST SURGICAL HISTORY: Significant for right hip surgery with 3 screws and . ALLERGIES: THE PATIENT HAS NO KNOWN ALLERGIES. MEDICATIONS AT HOME: Include Seroquel, pantoprazole, metoprolol, lisinopril, gabapentin, Cymbalta, and Lipitor. PHYSICAL EXAMINATION: GENERAL: She is lethargic. She is unable to answer questions. VITAL SIGNS: Temperature of 100.2, T max was 102.5, heart rate of 95, it was up to 107, respiratory rate of 20, blood pressure is 113/60. Patient is saturating on O2 at 94%. HEENT: Unremarkable. NECK: Supple. LUNGS: Have decreased breath sounds. HEART: Normal S1, S2. ABDOMEN: Soft, nontender. No rebound or guarding. LABORATORY EXAMINATION: Reveals a white count of 14,000; hemoglobin of 10; MCV is 79; platelets of 164; 78% neutrophils. The patient's sed rate is 114. Chemistries reveal a BUN of 15, creatinine of 0.5. Procalcitonin is 3.03. C-reactive protein is pending. Urinalysis is noncontributory. The patient had influenza negative and she has had HIV test done in 2017, which was negative and HIV PCR was negative. Urine Legionella antigen last year was negative. Microbiology reveals 2 bottles are positive for gram-positive cocci, Staph aureus by DNA-FISH. Sensitivity is pending. The patient had a questionable beta-lactam reaction or vancomycin reaction in the past. The patient was on vanco and Zosyn, had a rash and hence the patient was treated with daptomycin in the past and Dr. Anne's note is reviewed from yesterday. History and physical examination is reviewed. ASSESSMENT AND PLAN: A 62-year-old female with recurrent sensitive Staph bacteremia, had a PICC line that fell out, it is unclear when, history of breast cancer with bone metastases, had chemotherapy, history of hypertension, osteoporosis, cardiac arrhythmia, high cholesterol, now presenting with fevers. 1. Sepsis with Staph aureus bacteremia, had a questionable allergic reaction to either vancomycin or Zosyn. We will treat the patient with daptomycin. The patient is on Cymbalta and the patient is also on Lipitor. We will discontinue the Lipitor, it is the recommendation if you are using daptomycin. We will check on an echocardiogram to rule out endocarditis. Repeat blood cultures x2. Concerned about the mental status. We will order a CAT scan of the head. Does have change in mental status. We will check on the echo and culture results. Overall prognosis is quite poor for this patient. We will make further recommendation in a patient who was a former drug user. Jamel Valencia MD
--- NOTE | 2018-07-06 21:00 | CON ---
DATE: 07/06/2018 HISTORY OF PRESENT ILLNESS: The patient is a 62-year-old female with a history of depression and anxiety, who is being treated on the medical floor. The patient presented status post fall on 07/04/2018. Psychiatrist contacted due to the patient's history of depression and anxiety; however, it is apparent that the major concern is patient's current altered mental status. I met with the patient yesterday as well as today and she continues to be disoriented, aware that she is in the hospital, she does not know the current month or year and she keeps repeating that I am in the hospital, I am in the hospital regardless of what I ask her. The patient is unable to respond consistently regarding questions on hallucinations or depression or anxiety symptoms. She does workup here. Her thought process is disorganized and her focus is poor and her behavior remains unpredictable due to poor insight and judgment. MEDICATIONS: Relevant psychiatric medications includes Cymbalta 20 mg daily, Depakote 250 mg b.i.d., and Seroquel 12.5 mg at bedtime. IMPRESSION: Delirium is the main concern at this time, rule out depression and anxiety when the patient's mental status clears up. RECOMMENDATIONS: We will continue with Cymbalta and Depakote. Risperdal was discontinued yesterday and this provider and other psychiatric consultants will optimize Seroquel to help with organization of sleep and mood control. Psychiatry will continue to follow up. Next follow up would be on 07/07/2018. Sandra Valderrama MD
[2018-07-07] MEDS: Pantoprazole 40 mg EC Tab PO SCH (07:55)
[2018-07-07 08:09] LABS: BASO # 0.03 K/mm3 (0.0-2.0); BASO % 0.3 % (0.0-3.0); EOS # 0.3 (0.0-0.7); EOS % 2.6 % (1.5-5.0); HEMOGLOBIN 8.7 g/dL (12.0-16.0); LYMPH # 1.2 (1.2-3.4); LYMPH % 12.4 % (22.0-35.0); MEAN CORPUSCULAR HEMOGLOBIN 24.3 pg (25.0-35.0); MEAN PLATELET VOLUME 9.5 fl (7.0-11.0); MONO # 1.6 (0.1-0.6); RBC 3.58 10^6/uL (3.5-6.1); WHITE BLOOD COUNT 9.9 10^3/uL (4.5-11.0)
[2018-07-07 08:35] LABS: ALB/GLOB RATIO 0.8 (1.1-1.8); ALBUMIN 3.3 g/dL (3.0-4.8); ALT/SGPT < 6 U/L (7-56); AST/SGOT 39 U/L (14-36); BLOOD UREA NITROGEN 23 mg/dL (7-21); GFR NON-AFRICAN AMERICAN > 60
--- NOTE | 2018-07-07 09:26 | CP.PCM.PN ---
<Nima Shaffer - Last Filed: 07/07/18 21:41> Subjective - Date & Time of Evaluation Date of Evaluation: 07/07/18 Time of Evaluation: 09:02 - Subjective Subjective: Nima Shaffer DO PGY1 - Internal Medicine Middleware Consultant - Hospitalist Progress Note Patient was seen and examined at bedside this morning, complaining of chronic R leg pain No further complaints voiced at bedside; Remainder 12 system ROS is otherwise negative. Objective - Vital Signs/Intake and Output Vital Signs (last 24 hours): Temp Pulse Resp BP Pulse Ox 102.0 F H 89 20 138/64 94 L 07/07/18 06:11 07/07/18 06:00 07/07/18 06:00 07/07/18 06:00 07/07/18 06:00 - Medications Medications: Current Medications Acetaminophen (Tylenol 325mg Tab) 650 mg PO Q6H PRN PRN Reason: Fever >100.4 F Last Admin: 07/07/18 06:11 Dose: 650 mg Calcium Carbonate (Caltrate) 600 mg PO DAILY [facility] Last Admin: 07/06/18 09:28 Dose: 600 mg Cholecalciferol (Vitamin D) 1,000 intlu PO DAILY [facility] Last Admin: 07/06/18 09:28 Dose: 1,000 intlu Divalproex Sodium (Depakote Dr (*Bid*)) 250 mg PO [facility]; Protocol Last Admin: 07/06/18 21:11 Dose: 250 mg Duloxetine HCl (Cymbalta) 20 mg PO DAILY [facility] Last Admin: 07/06/18 09:28 Dose: 20 mg Gabapentin (Neurontin) 600 mg PO TID [facility]; Protocol Last Admin: 07/06/18 18:07 Dose: 600 mg Heparin Sodium (Porcine) (Heparin) 5,000 units SC Q12 [facility]; Protocol Last Admin: 07/06/18 21:12 Dose: 5,000 units Daptomycin 420 mg/ Sodium (Chloride) 100 mls @ 200 mls/hr IV Q24H [facility]; Protocol Stop: 07/10/18 09:16 Last Admin: 07/06/18 09:32 Dose: 200 mls/hr Lisinopril (Zestril) 2.5 mg PO DAILY [facility] Last Admin: 07/06/18 09:27 Dose: 2.5 mg Metoprolol Tartrate (Lopressor) 50 mg PO BID [facility] Last Admin: 07/06/18 18:07 Dose: 50 mg Oxycodone HCl (Oxycodone Immediate Release Tab) 20 mg PO Q12 PRN PRN Reason: Pain, severe (8-10) Last Admin: 07/06/18 19:23 Dose: 20 mg Pantoprazole Sodium (Protonix Ec Tab) 40 mg PO ACB [facility] Last Admin: 07/07/18 07:55 Dose: 40 mg Quetiapine Fumarate (Seroquel) 12.5 mg PO HS [facility]; Protocol Last Admin: 07/06/18 21:12 Dose: 12.5 mg Ropinirole HCl (Requip) 0.25 mg PO HS PRN PRN Reason: Restlessness Last Admin: 07/06/18 19:24 Dose: 0.25 mg - Labs Labs: 07/07/18 07:45 07/07/18 07:45 - Constitutional Appears: Non-toxic - Head Exam Head Exam: ATRAUMATIC, NORMOCEPHALIC - Eye Exam Eye Exam: EOMI, Normal appearance, PERRL - Respiratory Exam Respiratory Exam: Clear to Ausculation Bilateral, NORMAL BREATHING PATTERN - Cardiovascular Exam Cardiovascular Exam: REGULAR RHYTHM, RRR, +S1, +S2. absent: Murmur - GI/Abdominal Exam GI & Abdominal Exam: Soft. absent: Tenderness - Extremities Exam Extremities Exam: Normal Capillary Refill, Normal Inspection - Back Exam Back Exam: NORMAL INSPECTION. 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 Fall Most likely 2/2 gait instability/ weakness Xray of Right hip, BL knees negative for fracture PT Eval - Reccs DC to SUB Acute Rehab Fever + Leukocytosis Patient Febrile this morning; Leukocytosis improving Blood Cultures - 07/04 - 2/2 Positive Gram Positive Cocci - Sensitivities pending Previously tx w/ daptomycin in March 2018 C/w IV Daptomycin - Started 07/05 ID Following, appreciate reccs Acetaminophen 650 Q6 PRN Hx Breast CA w/ bony mets Oxycodone Q12 PRN Neuron 600 TID Hx Depression 20 Cymbalta daily 250 Depakote daily 12.5 Seroqeul HS 0.25 Ropinirole HS PRN Psych following, appreciate reccs Hx CAD Previously on Metoprolol 50BID, ASA 81 QD C/w Lisnopril 2.5 Daily GI/DVT Protonix 40 Heparin 5000 Q12 Dispo: Once medically optimized, PT reccomends [facility], Further reccs per CM Patient was seen, examined, and discussed w/ attending Dr. Summer Shaffer DO PGy1 - Internal Medicine Middleware Consultant <Summer Shaffer R - Last Filed: 07/08/18 06:44> Objective - Vital Signs/Intake and Output Vital Signs (last 24 hours): Temp Pulse Resp BP Pulse Ox 98.6 F 93 H 20 143/71 96 07/07/18 22:45 07/07/18 22:45 07/07/18 22:45 07/07/18 22:45 07/07/18 22:45 Intake and Output: 07/07/18 07/08/18 18:59 06:59 Intake Total 220 Output Total 550 Balance -330 - Medications Medications: Current Medications Acetaminophen (Tylenol 325mg Tab) 650 mg PO Q6H PRN PRN Reason: Fever >100.4 F Last Admin: 07/07/18 06:11 Dose: 650 mg Calcium Carbonate (Caltrate) 600 mg PO DAILY [facility] Last Admin: 07/07/18 09:27 Dose: 600 mg Cholecalciferol (Vitamin D) 1,000 intlu PO DAILY [facility] Last Admin: 07/07/18 09:30 Dose: 1,000 intlu Divalproex Sodium (Depakote Dr (*Bid*)) 250 mg PO AMHS [facility]; Protocol Last Admin: 07/07/18 21:34 Dose: 250 mg Duloxetine HCl (Cymbalta) 20 mg PO DAILY [facility] Last Admin: 07/07/18 09:30 Dose: 20 mg Gabapentin (Neurontin) 600 mg PO TID [facility]; Protocol Last Admin: 07/07/18 18:15 Dose: 600 mg Heparin Sodium (Porcine) (Heparin) 5,000 units SC Q12 [facility]; Protocol Last Admin: 07/07/18 21:34 Dose: 5,000 units Daptomycin 420 mg/ Sodium (Chloride) 100 mls @ 200 mls/hr IV Q24H [facility]; Protocol Stop: 07/10/18 09:16 Last Admin: 07/07/18 10:06 Dose: 200 mls/hr Lisinopril (Zestril) 2.5 mg PO DAILY [facility] Last Admin: 07/07/18 09:31 Dose: Not Given Metoprolol Tartrate (Lopressor) 50 mg PO BID [facility] Last Admin: 07/07/18 18:14 Dose: 50 mg Oxycodone HCl (Oxycodone Immediate Release Tab) 20 mg PO Q12 PRN PRN Reason: Pain, severe (8-10) Last Admin: 07/07/18 21:38 Dose: 20 mg Pantoprazole Sodium (Protonix Ec Tab) 40 mg PO ACB [facility] Last Admin: 07/07/18 07:55 Dose: 40 mg Quetiapine Fumarate (Seroquel) 12.5 mg PO HS [facility]; Protocol Last Admin: 07/07/18 21:34 Dose: 12.5 mg Ropinirole HCl (Requip) 0.25 mg PO HS PRN PRN Reason: Restlessness Last Admin: 07/07/18 21:35 Dose: 0.25 mg - Labs Labs: 07/07/18 07:45 07/07/18 07:45 Attending/Attestation - Attestation I have personally seen and examined this patient.: Yes I have fully participated in the care of the patient.: Yes I have reviewed all pertinent clinical information, including history, physical exam and plan: Yes Notes (Text): Patient seen and examined by me with resident at approximately 10:20 AM on 07/07/18. Case including HPI, physical exam, and assessment and plan discussed with resident. Agree with above with following additions/corrections. Patient is a 62-year-old female past medical history significant for hypertensi on, hyperlipidemia, stage IV breast cancer with metastases to the bone, MSSA bacteremia, coronary artery disease, and osteoarthritis on chronic pain medications that presented to the emergency room for a fall with right hip pain. Patient states she is having a lot of pain in her right knee. Patient is tearful but stops crying when asked a question. Patient denies any chest pain or palpitations. No nausea, vomiting, or abdominal pain. No headaches or dizziness. No dysuria. No diarrhea or constipation. Patient febrile this morning. Physical exam: General: Awake and alert sitting up in bed in no acute distress. HEENT: Normocephalic, atraumatic. Extraocular muscles intact, pupils equal and reactive, no scleral icterus. Oropharynx is pink and moist. No pharyngeal erythema or exudate appreciated. Neck is supple. Cardiovascular: Normal rhythm. Normal S1 and S2. No murmurs, rubs, or gallops appreciated Pulmonary: Normal respiratory effort. No rhonchi, rales, or wheezing appreciated. Gastrointestinal: Soft, nondistended. Nontender. Positive bowel sounds all 4 quadrants. No guarding. Musculoskeletal: Moves all extremities. No calf tenderness. No edema. Central nervous system: AAOx3. Dermatologic: Skin warm and dry. Assessment and plan: Patient is a 62-year-old female past medical history significant for hypertension, hyperlipidemia, stage IV breast cancer with metastases to the bone, MSSA bacteremia, coronary artery disease, and osteoarthritis on chronic pain medications that presented to the emergency room for a fall with right hip pain. 1. Bacteremia. Blood cultures positive for staph aureus. Leukocytosis resolved. Still febrile. ID following, recommendations appreciated. Continue daptomycin. 2. Hip and knee pain s/p fall. Continue with pain managment. Right hip and pelv ic xray per radiologist shows no acute fracture. Right knee xray per radiologist shows no evidence of fracture. Left knee xray per radiologist shows normal radiographs of left knee. Head CT per radiologist showed suboptimal examination due to patient positioning, no acute intracranial abnormality. Continue physical therapy. 3. Essential Hypertension. Continue lisinopril and lopressor 4. Chronic pain. Neuropathy. Continue oxycodone as needed. Continue Neurontin. 5. Chronic anemia. H&H downtrending. Continue to monitor for now. No signs of bleeding. 6. Metastatic breast cancer. Patient gets infusions at [facility]. Patient to continue follow up with her doctor. 7. Psychiatric disorder. Continue Seroquel, Cymbalta, and Depakote. Psychiatry following, recommendations appreciated. 8. Restless leg syndrome. Continue requip prn 9. GI/DVT prophylaxis. Protonix/heparin. Case discussed in detail with the patient regarding current diagnosis and treatment plan. All questions answered.
[2018-07-07] MEDS: Divalproex 250 mg DR (BID formulation) PO SCH ×2 (09:30→21:34)
[2018-07-07] MEDS: Cholecalciferol 1,000 INTLU TAB PO SCH (09:30)
[2018-07-07] MEDS: oxyCODONE 20 mg Immediate Release Tab PO PRN ×2 (10:41→21:38)
--- NOTE | 2018-07-07 14:27 | CARD ---
APPROVED REPORT Date of service: 07/07/2018 EXAM: Two-dimensional and M-mode echocardiogram with Doppler and color Doppler. INDICATION Infection:Rule out subacute bacterial endocarditis 2D DIMENSIONS Left Atrium (2D)4.7 (1.6-4.0cm)IVSd1.2 (0.7-1.1cm) LVDd4.8 (3.9-5.9cm)PWd1.1 (0.7-1.1cm) LVDs3.5 (2.5-4.0cm)FS (%) 27.9 % LVEF (%)54.1 (>50%) M-Mode DIMENSIONS Aortic Root3.00 (2.2-3.7cm)Aortic Cusp Exc.1.60 (1.5-2.0cm) Aortic Valve AoV Peak Ppyozrih369.0cm/Meghana Peak GR.16mmHg Mitral Valve MV E Gonvyoej74.9cm/sMV A Fgzfhcos88.3cm/sE/A ratio1.0 TDI Lateral E' Peak V12.30cm/sMedial E' Peak V8.68cm/sE/Lateral E'7.5 E/Medial E'10.6 Pulmonary Valve PV Peak Hkqchmen95.1cm/sPV Peak Grad.1mmHg Tricuspid Valve TR Peak Atvnkdnn993nd/sRAP MYSSDEPX92zjIlSB Peak Gr.20mmHg [id number] LEFT VENTRICLE The left ventricle is normal size. There is mild concentric left ventricular hypertrophy. The left ventricular function is normal.EF-55-60% There is normal LV segmental wall motion. Transmitral Doppler flow pattern is Grade II-pseudonormal filling dynamics. No left ventricle thrombus noted on this study. There is no ventricular septal defect visualized. There is no left ventricular aneurysm. There is no mass noted in the left ventricle. RIGHT VENTRICLE The right ventricle is normal size. There is normal right ventricular wall thickness. The right ventricular systolic function is normal. ATRIA The left atrium size is normal. The right atrium size is normal. The interatrial septum is intact with no evidence for an atrial septal defect. AORTIC VALVE The aortic valve is thickened but opens well. The aortic valve is mildly sclerotic. Trivial AR There is no aortic valvular stenosis. There is no aortic valvular vegetation. MITRAL VALVE The mitral valve is thickened but opens well. Mitral regurgitation is mild to moderate ( more towards mild) There is no mitral valve stenosis. There is no evidence of mitral valve prolapse. TRICUSPID VALVE The tricuspid valve leaflets are thickened , but open well. There is mild tricuspid regurgitation.RVSP-30 mmof JHg. There is no tricuspid valve stenosis. There is no tricuspid valve prolapse or vegetation. PULMONIC VALVE The pulmonary valve is normal in structure. There is no pulmonic valvular regurgitation. There is no pulmonic valvular stenosis. GREAT VESSELS The aortic root is normal in size. The ascending aorta is normal in size. The pulmonary artery is normal. The IVC is normal in size and collapses >50% with inspiration. PERICARDIAL EFFUSION There is no pleural effusion. There is no pericardial effusion. <Conclusion> The left ventricle is normal size. There is mild concentric left ventricular hypertrophy. The left ventricular function is normal.EF-55-60% Trivial AR Mitral regurgitation is mild to moderate ( more towards mild) There is mild tricuspid regurgitation.RVSP-30 mmof JHg. The IVC is normal in size and collapses >50% with inspiration. There is no pericardial effusion. No vegetation or thrombus noted in this study.
--- NOTE | 2018-07-07 22:59 | PN ---
DATE: 07/07/2018 SUBJECTIVE: The patient is seen earlier today. She is awake and alert, doing well. PHYSICAL EXAMINATION VITAL SIGNS: Temperature is 99, T-max of 102, blood pressure is 140/70, respiratory rate of 18. HEENT: Unremarkable. NECK: Supple. LUNGS: Have decreased breath sounds. HEART: Normal S1, S2. ABDOMEN: Soft and nontender. LABORATORY DATA: Reveals the patient's blood cultures are positive for Staphylococcus aureus, it is oxacillin sensitive, it is a sensitive Staphylococcus aureus. The patient had an echo which revealed no vegetation seen. CAT scan of the head; no acute abnormalities. ASSESSMENT AND PLAN: A 62-year-old female with three episodes of highly recurrent sensitive Staphylococcus aureus bacteremia in 2018, now returns with sensitive Staphylococcus aureus bacteremia in a patient who has breast cancer with bone metastases on chemotherapy, hypertension, osteoporosis, ex-drug user. Sepsis with sensitive Staphylococcus aureus bacteremia, QUESTIONABLE ALLERGY TO VANCOMYCIN AND ZOSYN, currently on daptomycin. We will check on the repeat blood cultures. Will need 4 to 6 weeks of antibiotics. Repeat blood cultures have been ordered. On daptomycin. Jamel Valencia MD
[2018-07-08 07:10] LABS: BASO # 0.03 K/mm3 (0.0-2.0); BASO % 0.3 % (0.0-3.0); EOS # 0.4 (0.0-0.7); EOS % 3.7 % (1.5-5.0); HEMOGLOBIN 9.1 g/dL (12.0-16.0); LYMPH # 1.7 (1.2-3.4); LYMPH % 18.4 % (22.0-35.0); MEAN CELL VOLUME 80.4 fl (80.0-105.0); MEAN CORPUSCULAR HEMOGLOBIN 24.5 pg (25.0-35.0); MEAN CORPUSCULAR HGB CONC 30.4 g/dl (31.0-37.0); MEAN PLATELET VOLUME 10.2 fl (7.0-11.0); MONO # 1.7 (0.1-0.6); MONO % 17.9 % (1.0-6.0); RBC 3.72 10^6/uL (3.5-6.1); RED CELL DISTRIBUTION WIDTH 16.8 % (11.5-14.5); WHITE BLOOD COUNT 9.4 10^3/uL (4.5-11.0)
[2018-07-08 07:34] LABS: ALB/GLOB RATIO 0.8 (1.1-1.8); ALBUMIN 3.2 g/dL (3.0-4.8); ALT/SGPT 11 U/L (7-56); AST/SGOT 68 U/L (14-36); BLOOD UREA NITROGEN 14 mg/dL (7-21); GFR NON-AFRICAN AMERICAN > 60
[2018-07-08] MEDS: Pantoprazole 40 mg EC Tab PO SCH (08:00)
--- NOTE | 2018-07-08 10:09 | CP.PCM.PCO ---
Physician Communication Note - Physician Communication Note Physician Communication Note: Pending repeat blood cx.
[2018-07-08] MEDS: oxyCODONE 20 mg Immediate Release Tab PO PRN (11:22)
[2018-07-08] MEDS: Cholecalciferol 1,000 INTLU TAB PO SCH (11:25)
[2018-07-08] MEDS: Divalproex 250 mg DR (BID formulation) PO SCH ×2 (11:25→22:23)
--- NOTE | 2018-07-08 13:22 | CP.PCM.PCO ---
Physician Communication Note - Physician Communication Note Physician Communication Note: Pt was at CT scan 07/07/18, will fllow 07/08/18
--- NOTE | 2018-07-08 19:37 | CP.PCM.PN ---
<Nima Shaffer - Last Filed: 07/08/18 20:26> Subjective - Date & Time of Evaluation Date of Evaluation: 07/08/18 Time of Evaluation: 10:00 - Subjective Subjective: Nima Shaffer DO PGY1 - Internal Medicine Protective Signal Repairer - Hospitalist Progress Note Patient was seen and evaluated at bedside this morning No acute events reported overnight. Patient still complaining of pain in her RLE. No further complaints voiced at bedside. Objective - Vital Signs/Intake and Output Vital Signs (last 24 hours): Temp Pulse Resp BP Pulse Ox 99 F 76 14 134/75 96 07/08/18 17:00 07/08/18 17:31 07/08/18 14:00 07/08/18 17:31 07/08/18 14:00 - Medications Medications: Current Medications Acetaminophen (Tylenol 325mg Tab) 650 mg PO Q6H PRN PRN Reason: Fever >100.4 F Last Admin: 07/07/18 06:11 Dose: 650 mg Calcium Carbonate (Caltrate) 600 mg PO DAILY [facility] Last Admin: 07/08/18 11:25 Dose: 600 mg Cholecalciferol (Vitamin D) 1,000 intlu PO DAILY [facility] Last Admin: 07/08/18 11:25 Dose: 1,000 intlu Divalproex Sodium (Depakote Dr (*Bid*)) 250 mg PO AMHS [facility]; Protocol Last Admin: 07/08/18 11:25 Dose: 250 mg Duloxetine HCl (Cymbalta) 20 mg PO DAILY [facility] Last Admin: 07/08/18 11:24 Dose: 20 mg Gabapentin (Neurontin) 600 mg PO TID [facility]; Protocol Last Admin: 07/08/18 17:30 Dose: 600 mg Heparin Sodium (Porcine) (Heparin) 5,000 units SC Q12 [facility]; Protocol Last Admin: 07/08/18 11:25 Dose: 5,000 units Daptomycin 420 mg/ Sodium (Chloride) 100 mls @ 200 mls/hr IV Q24H [facility]; Protocol Stop: 07/10/18 09:16 Last Admin: 07/08/18 10:36 Dose: 200 mls/hr Lisinopril (Zestril) 2.5 mg PO DAILY [facility] Last Admin: 07/08/18 13:23 Dose: Not Given Metoprolol Tartrate (Lopressor) 50 mg PO BID [facility] Last Admin: 07/08/18 17:31 Dose: 50 mg Oxycodone HCl (Oxycodone Immediate Release Tab) 20 mg PO Q12 PRN PRN Reason: Pain, severe (8-10) Last Admin: 07/08/18 11:22 Dose: 20 mg Pantoprazole Sodium (Protonix Ec Tab) 40 mg PO ACB [facility] Last Admin: 07/08/18 08:00 Dose: Not Given Quetiapine Fumarate (Seroquel) 12.5 mg PO HS [facility]; Protocol Last Admin: 07/07/18 21:34 Dose: 12.5 mg Ropinirole HCl (Requip) 0.25 mg PO HS PRN PRN Reason: Restlessness Last Admin: 07/07/18 21:35 Dose: 0.25 mg - Labs Labs: 07/08/18 06:45 07/08/18 06:45 - Constitutional Appears: Non-toxic, Uncomfortable - Head Exam Head Exam: ATRAUMATIC, NORMOCEPHALIC - Eye Exam Eye Exam: EOMI, Normal appearance, PERRL - Respiratory Exam Respiratory Exam: Clear to Ausculation Bilateral, NORMAL BREATHING PATTERN - Cardiovascular Exam Cardiovascular Exam: REGULAR RHYTHM, RRR, +S1, +S2. absent: Murmur - GI/Abdominal Exam GI & Abdominal Exam: Soft. absent: Tenderness - Extremities Exam Extremities Exam: Normal Capillary Refill, Normal Inspection - Back Exam Back Exam: NORMAL INSPECTION. absent: CVA tenderness (L), CVA tenderness (R) - Neurological Exam Neurological Exam: Alert, Awake, CN II-XII Intact - Psychiatric Exam Psychiatric exam: Anxious - Skin Skin Exam: Dry, Intact, Normal Color, Warm Assessment and Plan - Assessment and Plan (Free Text) Plan: 62F w/ PMH of HTN, HLD, Stage IV Breast CA w/ bony metastasis, MSSA Bacteremia, CAD, OA, Depression presenting to [facility] on 07/04 s/p fall. Plan: Fall: Most likely 2/2 gait instability/ weakness Xray of Right hip, BL knees negative for fracture PT Eval - Reccs DC to SUB Acute Rehab Sepsis 2/2 MSSA Bacteremia - resolved Afebrile throughout the day; No Leukocytosis MSSA Bacteremia: Blood Cultures - 07/04 - 2/2 Positive Gram Positive Cocci Repeat Cultures ordered 07/08 Previously tx w/ daptomycin in March 2018 C/w IV Daptomycin - Started 07/05 - x4-6 weeks as per ID ID Following, appreciate reccs Acetaminophen 650 Q6 PRN Chronic Pain 2/2 Hx Breast CA w/ bony mets Continue Oxycodone 20 Q12 PRN Continue Neuron 600 TID Palliative consulted Nutritional Support Poor appetite - boost supplement w/ meals Hx Depression C/w 20 Cymbalta daily C/w 250 Depakote daily C/w 12.5 Seroqeul HS C/w 0.25 Ropinirole HS PRN Psych following, appreciate reccs Hx CAD Previously on Metoprolol 50BID, C/w ASA 81 QD C/w Lisnopril 2.5 Daily GI/DVT Protonix 40 Heparin 5000 Q12 Dispo: Once medically optimized, PT reccomends [facility], Further reccs per CM Patient was seen, examined, and discussed w/ attending Dr. Summer Shaffer DO PGy1 - Internal Medicine Protective Signal Repairer <Summer Shaffer R - Last Filed: 07/09/18 07:14> Objective - Vital Signs/Intake and Output Vital Signs (last 24 hours): Temp Pulse Resp BP Pulse Ox 99.9 F H 80 20 134/69 98 07/08/18 22:44 07/08/18 22:44 07/08/18 22:44 07/08/18 22:44 07/08/18 22:44 - Medications Medications: Current Medications Acetaminophen (Tylenol 325mg Tab) 650 mg PO Q6H PRN PRN Reason: Fever >100.4 F Last Admin: 07/07/18 06:11 Dose: 650 mg Aspirin (Ecotrin) 81 mg PO DAILY [facility] Calcium Carbonate (Caltrate) 600 mg PO DAILY [facility] Last Admin: 07/08/18 11:25 Dose: 600 mg Cholecalciferol (Vitamin D) 1,000 intlu PO DAILY [facility] Last Admin: 07/08/18 11:25 Dose: 1,000 intlu Divalproex Sodium (Depakote Dr (*Bid*)) 250 mg PO AMHS [facility]; Protocol Last Admin: 07/08/18 22:23 Dose: 250 mg Duloxetine HCl (Cymbalta) 20 mg PO DAILY [facility] Last Admin: 07/08/18 11:24 Dose: 20 mg Gabapentin (Neurontin) 600 mg PO TID [facility]; Protocol Last Admin: 07/08/18 17:30 Dose: 600 mg Heparin Sodium (Porcine) (Heparin) 5,000 units SC Q12 [facility]; Protocol Last Admin: 07/08/18 22:24 Dose: 5,000 units Daptomycin 420 mg/ Sodium (Chloride) 100 mls @ 200 mls/hr IV Q24H [facility]; Protocol Stop: 07/10/18 09:16 Last Admin: 07/08/18 10:36 Dose: 200 mls/hr Lisinopril (Zestril) 2.5 mg PO DAILY [facility] Last Admin: 07/08/18 13:23 Dose: Not Given Metoprolol Tartrate (Lopressor) 50 mg PO BID [facility] Last Admin: 07/08/18 17:31 Dose: 50 mg Oxycodone HCl (Oxycodone Immediate Release Tab) 20 mg PO Q12 PRN PRN Reason: Pain, severe (8-10) Last Admin: 07/09/18 02:32 Dose: 20 mg Pantoprazole Sodium (Protonix Ec Tab) 40 mg PO ACB [facility] Last Admin: 07/08/18 08:00 Dose: Not Given Quetiapine Fumarate (Seroquel) 12.5 mg PO HS [facility]; Protocol Last Admin: 07/08/18 22:23 Dose: 12.5 mg Ropinirole HCl (Requip) 0.25 mg PO HS PRN PRN Reason: Restlessness Last Admin: 07/08/18 22:42 Dose: 0.25 mg - Labs Labs: 07/08/18 06:45 07/08/18 06:45 Attending/Attestation - Attestation I have personally seen and examined this patient.: Yes I have fully participated in the care of the patient.: Yes I have reviewed all pertinent clinical information, including history, physical exam and plan: Yes Notes (Text): Patient seen and examined by me with resident at approximately 12:10PM on 07/08/18. Case including HPI, physical exam, and assessment and plan discussed with resident. Agree with above with following additions/corrections. Patient is a 62-year-old female past medical history significant for hypertension, hyperlipidemia, stage IV breast cancer with metastases to the bone, MSSA bacteremia, coronary artery disease, and osteoarthritis on chronic pain medications that presented to the emergency room for a fall with right hip pain. Patient states she is feeling ok. Feels tired today. Complains of pain in her legs. Patient denies any chest pain or palpitations. No nausea, vomiting, or abdominal pain. No headaches or dizziness. No dysuria. No diarrhea or constipation. Patient afebrile today. Physical exam: General: Awake and alert sitting up in bed in no acute distress. HEENT: Normocephalic, atraumatic. Extraocular muscles intact, pupils equal and reactive, no scleral icterus. Oropharynx is pink and moist. No pharyngeal erythema or exudate appreciated. Neck is supple. Cardiovascular: Normal rhythm. Normal S1 and S2. No murmurs, rubs, or gallops appreciated Pulmonary: Normal respiratory effort. No rhonchi, rales, or wheezing appreciated. Gastrointestinal: Soft, nondistended. Nontender. Positive bowel sounds all 4 quadrants. No guarding. Musculoskeletal: Moves all extremities. No calf tenderness. No edema. Central nervous system: AAOx3. Dermatologic: Skin warm and dry. Assessment and plan: Patient is a 62-year-old female past medical history significant for hypertension, hyperlipidemia, stage IV breast cancer with metastases to the bone, MSSA bacteremia, coronary artery disease, and osteoarthritis on chronic pain medications that presented to the emergency room for a fall with right hip pain. 1. Sepsis secondary to Bacteremia. Blood cultures positive for staph aureus. Leukocytosis resolved. Afebrile today. ID following, recommendations appreciated. Continue daptomycin. 2. Hip and knee pain s/p fall. Continue with pain managment. Continue physical therapy. Right hip and pelvic xray per radiologist shows no acute fracture. Right knee xray per radiologist shows no evidence of fracture. Left knee xray per radiologist shows normal radiographs of left knee. Head CT per radiologist showed suboptimal examination due to patient positioning, no acute intracranial abnormality. 3. Essential Hypertension. Continue lisinopril and lopressor 4. Chronic pain. Neuropathy. Continue home oxycodone as needed. Continue Neurontin. 5. Chronic anemia. H&H stable. Continue to monitor for now. No signs of bleeding. 6. Metastatic breast cancer. Patient gets infusions at [facility]. Patient to continue follow up with her doctor. 7. Psychiatric disorder. Continue Seroquel, Cymbalta, and Depakote. Psychiatry recommendations appreciated. 8. Restless leg syndrome. Continue requip prn 9. GI/DVT prophylaxis. Protonix/heparin. Case discussed in detail with the patient regarding current diagnosis and treatment plan. All questions answered.
--- NOTE | 2018-07-08 19:58 | PN ---
DATE: 07/08/2018 SUBJECTIVE: The patient was admitted on the medical site, status post fall, considering the fact that the patient has history of depression and anxiety. Psych consult was called. The patient was seen by Dr. Valderrama over the weekend. This scientific technical writer is taking over. The patient presented to be sleepy, easily arousable, and appears to be confused. The patient is poor and unreliable historian, reported that she does not want to talk to this scientific technical writer. The patient had difficulty to stay focus and pay attention during the interview because the patient was keeps falling back asleep. Based on report from the medical site and from the medical team as well as Dr. Valderrama, the patient has episodes of delirium and the main concern is delirium at this point. The patient is on Cymbalta, Depakote, and Seroquel which the patient seems to be compliant with. LABORATORY DATA: Reviewed. MEDICATIONS: Reviewed. MENTAL STATUS EXAMINATION: The patient presented to be sleepy, but easily arousable. The patient had difficult to stay focus and concentrate. Mood described as okay, "I do not want to talk about it." Affect was flat. Thought process seems to be concrete. Thought content, the patient has episodes of confusion and the patient appears to be delirious. Insight and judgment seems to be limited. Impulses are unpredictable. IMPRESSION: At present moment, the patient is in delirium stage. The patient has a history of depression and anxiety. PLAN: Continue current management. Continue current medications. The patient might benefit from antipsychotic medications Seroquel 12.5 mg at the nighttime. We will follow up and advise accordingly. Should you have any questions. give me a call back. Aretha Garcia MD
--- NOTE | 2018-07-08 23:04 | PN ---
DATE: 07/08/2018 SUBJECTIVE: Patient seen in bed, no acute distress, nontoxic. PHYSICAL EXAMINATION VITAL SIGNS: Temperature is 100, blood pressure is 130/70, respiratory rate of 18. HEENT: Unremarkable. NECK: Supple. LUNGS: Have decreased breath sounds. HEART: Normal S1 and S2. ABDOMEN: Soft, nontender. LABORATORY DATA: Reveals a white count of 9.4, hemoglobin of 9, BUN of 14, creatinine of 0.6. Urinalysis is noted. Serology is noted. Microbiology reveals there is sensitive Staphylococcus aureus. Nasal MRSA is negative. Repeat blood cultures are pending. Review of orders. ASSESSMENT AND PLAN: This 62-year-old female with 3 episodes of recurrent sensitive Staphylococcus aureus bacteremia in 2018, now with sensitive Staphylococcus aureus bacteremia patient with breast cancer with bone metastases and chemotherapy. No obvious source. QUESTIONABLE ALLERGY TO VANCOMYCIN AND ZOSYN, one or the other not sure of which. At this time, on daptomycin. We will check on the repeat cultures and will need 4 to 6 weeks of antibiotics intravenously. Jamel Valencia MD
[2018-07-09] MEDS: oxyCODONE 20 mg Immediate Release Tab PO PRN ×2 (02:32→14:27)
[2018-07-09 07:46] LABS: BASO # 0.05 K/mm3 (0.0-2.0); BASO % 0.4 % (0.0-3.0); EOS # 0.5 (0.0-0.7); EOS % 4.1 % (1.5-5.0); HEMOGLOBIN 8.8 g/dL (12.0-16.0); LYMPH % 17.7 % (22.0-35.0); MEAN CELL VOLUME 79.7 fl (80.0-105.0); MEAN CORPUSCULAR HEMOGLOBIN 24.1 pg (25.0-35.0); MEAN CORPUSCULAR HGB CONC 30.2 g/dl (31.0-37.0); MEAN PLATELET VOLUME 9.4 fl (7.0-11.0); MONO # 2.3 (0.1-0.6); MONO % 20.1 % (1.0-6.0); PLATELET COUNT 244 10^3/uL (120.0-450.0); RBC 3.65 10^6/uL (3.5-6.1); RED CELL DISTRIBUTION WIDTH 16.3 % (11.5-14.5); WHITE BLOOD COUNT 11.2 10^3/uL (4.5-11.0)
[2018-07-09 08:16] LABS: ALB/GLOB RATIO 0.7 (1.1-1.8); ALBUMIN 3.1 g/dL (3.0-4.8); ALT/SGPT 14 U/L (7-56); AST/SGOT 80 U/L (14-36); BLOOD UREA NITROGEN 15 mg/dL (7-21); CALCIUM 9.2 mg/dL (8.4-10.5); GFR NON-AFRICAN AMERICAN > 60
[2018-07-09 08:36] LABS: EOSINOPHIL 3 % (0.0-3.0); LYMPHOCYTE 24 % (22.0-35.0); MONOCYTE 9 % (1.0-6.0); NEUTROPHIL 64 % (50.0-70.0)
[2018-07-09 08:38] LABS: MICROCYTOSIS 1+; PLATELET ESTIMATE NORMAL (NORMAL)
[2018-07-09] MEDS ORDERED: ceFAZolin IV 2 gm in Dextrose 2 GM/50 ML BAG IVPB ONE (10:15)
[2018-07-09] MEDS: Divalproex 250 mg DR (BID formulation) PO SCH ×2 (10:22→21:31)
[2018-07-09] MEDS: Cholecalciferol 1,000 INTLU TAB PO SCH (10:23)
--- NOTE | 2018-07-09 15:21 | CP.PCM.PN ---
<Nima Shaffer - Last Filed: 07/09/18 15:13> Subjective - Date & Time of Evaluation Date of Evaluation: 07/09/18 Time of Evaluation: 10:00 - Subjective Subjective: Nima Shaffer DO PGY1 -Internal Medicine Post Office Manager - Hospitalist Progress Note Patient was seen and evaluated at bedside this morning NO acute events reported overnight. Patient was tearful during examination, reassurance of acute disease process offered to patient. Still complaining of chronic lower extremity pain. Encouraged patient to work w/ PT Objective - Vital Signs/Intake and Output Vital Signs (last 24 hours): Temp Pulse Resp BP Pulse Ox 99.9 F H 69 18 106/64 95 07/09/18 06:00 07/09/18 10:26 07/09/18 06:00 07/09/18 10:26 07/09/18 06:00 Intake and Output: 07/09/18 07/09/18 06:59 18:59 Intake Total 240 Balance 240 - Medications Medications: Current Medications Acetaminophen (Tylenol 325mg Tab) 650 mg PO Q6H PRN PRN Reason: Fever >100.4 F Last Admin: 07/07/18 06:11 Dose: 650 mg Aspirin (Ecotrin) 81 mg PO DAILY [facility] Last Admin: 07/09/18 10:23 Dose: 81 mg Calcium Carbonate (Caltrate) 600 mg PO DAILY [facility] Last Admin: 07/09/18 10:23 Dose: 600 mg Cholecalciferol (Vitamin D) 1,000 intlu PO DAILY [facility] Last Admin: 07/09/18 10:23 Dose: 1,000 intlu Divalproex Sodium (Depakote Dr (*Bid*)) 250 mg PO AMHS [facility]; Protocol Last Admin: 07/09/18 10:22 Dose: 250 mg Duloxetine HCl (Cymbalta) 20 mg PO DAILY [facility] Last Admin: 07/09/18 10:23 Dose: 20 mg Gabapentin (Neurontin) 600 mg PO TID [facility]; Protocol Last Admin: 07/09/18 14:27 Dose: 600 mg Heparin Sodium (Porcine) (Heparin) 5,000 units SC Q12 [facility]; Protocol Last Admin: 07/09/18 10:23 Dose: 5,000 units Daptomycin 420 mg/ Sodium (Chloride) 100 mls @ 200 mls/hr IV Q24H [facility]; Protocol Stop: 07/10/18 09:16 Last Admin: 07/08/18 10:36 Dose: 200 mls/hr Lisinopril (Zestril) 2.5 mg PO DAILY [facility] Last Admin: 07/09/18 10:25 Dose: 2.5 mg Metoprolol Tartrate (Lopressor) 50 mg PO BID [facility] Last Admin: 07/09/18 10:26 Dose: 50 mg Oxycodone HCl (Oxycodone Immediate Release Tab) 20 mg PO Q12 PRN PRN Reason: Pain, severe (8-10) Last Admin: 07/09/18 14:27 Dose: 20 mg Pantoprazole Sodium (Protonix Ec Tab) 40 mg PO ACB [facility] Last Admin: 07/08/18 08:00 Dose: Not Given Quetiapine Fumarate (Seroquel) 12.5 mg PO HS [facility]; Protocol Last Admin: 07/08/18 22:23 Dose: 12.5 mg Ropinirole HCl (Requip) 0.25 mg PO HS PRN PRN Reason: Restlessness Last Admin: 07/08/18 22:42 Dose: 0.25 mg - Labs Labs: 07/09/18 06:45 07/09/18 06:45 - Constitutional Appears: Non-toxic, Uncomfortable, Tearful - Head Exam Head Exam: ATRAUMATIC, NORMOCEPHALIC - Eye Exam Eye Exam: EOMI, Normal appearance, PERRL - Respiratory Exam Respiratory Exam: Clear to Ausculation Bilateral, NORMAL BREATHING PATTERN - Cardiovascular Exam Cardiovascular Exam: REGULAR RHYTHM, RRR, +S1, +S2. absent: Murmur - GI/Abdominal Exam GI & Abdominal Exam: Soft. absent: Tenderness - Extremities Exam Extremities Exam: Normal Capillary Refill, Normal Inspection - Back Exam Back Exam: NORMAL INSPECTION. absent: CVA tenderness (L), CVA tenderness (R) - Neurological Exam Neurological Exam: Alert, Awake, CN II-XII Intact - Psychiatric Exam Psychiatric exam: Anxious, Sad - Skin Skin Exam: Dry, Intact, Normal Color, Warm Assessment and Plan - Assessment and Plan (Free Text) Assessment: 62F w/ PMH of HTN, HLD, Stage IV Breast CA w/ bony metastasis, MSSA Bacteremia, CAD, OA, Depression presenting to [facility] on 07/04 s/p fall. Plan: Sepsis 2/2 MSSA Bacteremia Afebrile throughout the day; No Leukocytosis 07/04 BCX - 2/2 Positive Gram Positive Cocci 07/08 BCX - 2/2 Negative to date IV Daptomycin started - 07/05; Will be held to trial cefazolin Cefazolin 2gm admin today will monitor for hypersensitivity as per ID Will need 4-6 weeks of antibiotic therapy as per ID Can insert picc line once 2/2 BCX negative for 48 Hours ID Following, appreciate reccs Acetaminophen 650 Q6 PRN Fall: Most likely 2/2 gait instability/ weakness Xray of Right hip, BL knees negative for fracture PT Eval - Reccs DC to SUB Acute Rehab Chronic Pain 2/2 Hx Breast CA w/ bony mets Continue Oxycodone 20 Q12 PRN Continue Neuron 600 TID Palliative consulted Nutritional Support Poor appetite - boost supplement w/ meals Hx Depression C/w 20 Cymbalta daily C/w 250 Depakote daily C/w 12.5 Seroqeul HS C/w 0.25 Ropinirole HS PRN Psych following, appreciate reccs Hx CAD Previously on Metoprolol 50BID, C/w ASA 81 QD C/w Lisnopril 2.5 Daily GI/DVT Protonix 40 Heparin 5000 Q12 Dispo: Once medically optimized, PT reccomends [facility], Patient being denied [facility] placement at this time due to metz of dapto. Will trial ANCEF as per ID as an alternative. Once 2/2 BCX negative @ 48hours will insert PICC for tentative discharge if medically optimized. Further placement reccs by [facility]. Patient was seen, examined, and discussed w/ attending Dr. Summer Shaffer DO PGY1 - Internal Medicine Post Office Manager <Summer Shaffer R - Last Filed: 07/09/18 16:58> Objective - Vital Signs/Intake and Output Vital Signs (last 24 hours): Temp Pulse Resp BP Pulse Ox 99.9 F H 69 18 106/64 95 07/09/18 06:00 07/09/18 10:07/09/18 06:00 07/09/18 10:07/09/18 06:00 Intake and Output: 07/09/18 07/09/18 06:59 18:59 Intake Total 240 Balance 240 - Medications Medications: Current Medications Acetaminophen (Tylenol 325mg Tab) 650 mg PO Q6H PRN PRN Reason: Fever >100.4 F Last Admin: 07/07/18 06:11 Dose: 650 mg Aspirin (Ecotrin) 81 mg PO DAILY [facility] Last Admin: 07/09/18 10:23 Dose: 81 mg Calcium Carbonate (Caltrate) 600 mg PO DAILY [facility] Last Admin: 07/09/18 10:23 Dose: 600 mg Cholecalciferol (Vitamin D) 1,000 intlu PO DAILY [facility] Last Admin: 07/09/18 10:23 Dose: 1,000 intlu Divalproex Sodium (Depakote Dr (*Bid*)) 250 mg PO AMHS [facility]; Protocol Last Admin: 07/09/18 10:22 Dose: 250 mg Duloxetine HCl (Cymbalta) 20 mg PO DAILY [facility] Last Admin: 07/09/18 10:23 Dose: 20 mg Gabapentin (Neurontin) 600 mg PO TID [facility]; Protocol Last Admin: 07/09/18 14:27 Dose: 600 mg Heparin Sodium (Porcine) (Heparin) 5,000 units SC Q12 [facility]; Protocol Last Admin: 07/09/18 10:23 Dose: 5,000 units Daptomycin 420 mg/ Sodium (Chloride) 100 mls @ 200 mls/hr IV Q24H [facility]; Protocol Stop: 07/10/18 09:16 Last Admin: 07/08/18 10:36 Dose: 200 mls/hr Lisinopril (Zestril) 2.5 mg PO DAILY [facility] Last Admin: 07/09/18 10:25 Dose: 2.5 mg Metoprolol Tartrate (Lopressor) 50 mg PO BID [facility] Last Admin: 07/09/18 10:26 Dose: 50 mg Oxycodone HCl (Oxycodone Immediate Release Tab) 20 mg PO Q12 PRN PRN Reason: Pain, severe (8-10) Last Admin: 07/09/18 14:27 Dose: 20 mg Pantoprazole Sodium (Protonix Ec Tab) 40 mg PO ACB [facility] Last Admin: 07/08/18 08:00 Dose: Not Given Quetiapine Fumarate (Seroquel) 12.5 mg PO HS [facility]; Protocol Last Admin: 07/08/18 22:23 Dose: 12.5 mg Ropinirole HCl (Requip) 0.25 mg PO HS PRN PRN Reason: Restlessness Last Admin: 07/08/18 22:42 Dose: 0.25 mg - Labs Labs: 07/09/18 06:45 07/09/18 06:45 Attending/Attestation - Attestation I have personally seen and examined this patient.: Yes I have fully participated in the care of the patient.: Yes I have reviewed all pertinent clinical information, including history, physical exam and plan: Yes Notes (Text): Patient seen and examined by me with resident at approximately 11:30AM on 07/09/18. Case including HPI, physical exam, and assessment and plan discussed with resident. Agree with above with following additions/corrections. Patient is a 62-year-old female past medical history significant for hypertension, hyperlipidemia, stage IV breast cancer with metastases to the bone, MSSA bacteremia, coronary artery disease, and osteoarthritis on chronic pain medications that presented to the emergency room for a fall with right hip pain. Patient states she is thought she was feeling better yesterday but is not feeling well today. She is unable to explain why. She hortensia any chest pain or palpitations. No nausea, vomiting, or abdominal pain. No headaches or dizziness. No dysuria. Patient with low grade fevers. Patient is not complaining of knee or hip pain today. Physical exam: General: Awake and alert lying in bed in no acute distress. HEENT: Normocephalic, atraumatic. Extraocular muscles intact, pupils equal and reactive, no scleral icterus. Oropharynx is pink and moist. No pharyngeal erythema or exudate appreciated. Neck is supple. Cardiovascular: Normal rhythm. Normal S1 and S2. No murmurs, rubs, or gallops appreciated Pulmonary: Normal respiratory effort. No rhonchi, rales, or wheezing appreciated. Gastrointestinal: Soft, nondistended. Nontender. Positive bowel sounds all 4 quadrants. No guarding. Musculoskeletal: Moves all extremities. No calf tenderness. No edema. Central nervous system: AAOx3. Dermatologic: Skin warm and dry. Assessment and plan: Patient is a 62-year-old female past medical history significant for hypertension, hyperlipidemia, stage IV breast cancer with metastases to the bone, MSSA bacteremia, coronary artery disease, and osteoarthritis on chronic pain medications that presented to the emergency room for a fall with right hip pain. 1. Sepsis secondary to Bacteremia. Blood cultures positive for staph aureus. Leukocytosis resolved. With low grade temps ID following, recommendations appreciated. Antibiotics changed to Ancef. Pending blood cultures with no growth for [address] PICC line. 2. Hip and knee pain s/p fall. Continue with pain management. Continue physical therapy. Pending [facility]. Right hip and pelvic xray per radiologist shows no acute fracture. Right knee xray per radiologist shows no evidence of fracture. Left knee xray per radiologist shows normal radiographs of left knee. Head CT per radiologist showed suboptimal examination due to patient positioning, no acute i ntracranial abnormality. 3. Essential Hypertension. Continue lisinopril and lopressor 4. Chronic pain. Neuropathy. Continue home oxycodone as needed. Continue Neurontin. 5. Chronic anemia. H&H stable. Continue to monitor for now. No signs of bleeding. 6. Metastatic breast cancer. Patient gets infusions at [facility]. Patient to continue follow up with her doctor. 7. Psychiatric disorder. Continue Seroquel, Cymbalta, and Depakote. Psychiatry recommendations appreciated. 8. Restless leg syndrome. Continue requip prn 9. GI/DVT prophylaxis. Protonix/heparin. Case discussed in detail with the patient regarding current diagnosis and treatment plan. All questions answered.
--- NOTE | 2018-07-09 18:40 | PN ---
DATE: 07/09/2018 SUBJECTIVE: The patient was seen today. The patient presented the same way. The patient is disengaged, poor eye contact. The patient reported that she feels annoyed and irritable because of her medical issues. At the same time, the patient appears to be disengaged and did not want to continue conversation, turned her head on the side and closed her eyes. Collaterals were obtained from nursing staff. There is no acute events. The patient did not verbalize any thoughts of harming herself or others. The patient presented to be apathetic. PHYSICAL EXAMINATION VITAL SIGNS: Reviewed. Temperature 99.9, pulse 69, blood pressure 106/64, respiration 18. LABORATORY DATA: Labs reviewed. The patient has leukocytosis, today is 11.2. Coagulation reviewed. Blood gas reviewed. Chemistry reviewed. Urinalysis reviewed. Toxicology reviewed. Serology reviewed. Based on the medical team report, the patient was diagnosed with sepsis secondary to MSSA bacteremia, chronic pain, history of breast cancer with bony metastasis, history of depression. Physical therapy recommended subacute rehab. MEDICATIONS: Medications reviewed. The patient is on Depakote 250 mg twice a day, Cymbalta 20 mg daily, Neurontin 500 mg three times a day, Seroquel 12.5 mg at the nighttime. MENTAL STATUS EXAMINATION: The patient presented to be disengaged, sleepy, intermittent eye contact. Mood described as okay. Affect was flat. Thought process, concrete. Thought content, the patient denied visual, auditory or tactile hallucinations. Denies paranoid ideation. The patient denied thoughts of harming herself or others. Denied intent or plan. Insight and judgment seems to be limited. Impulses are well controlled. IMPRESSION: The patient was diagnosed with sepsis, metastatic breast carcinoma, multiple medical issues, rule out mood disorder due to general medical condition, rule out delirium. PLAN: Continue current medication. Continue current management. This caption writer will follow up on this patient, but at the same time, there are no acute issues from the psychiatric standpoint. Should you have any questions give me a call back. Aretha Garcia MD PEG
--- NOTE | 2018-07-09 22:06 | CP.PCM.PN ---
Subjective - Date & Time of Evaluation Date of Evaluation: 07/09/18 Time of Evaluation: 07:55 - Subjective Subjective: Patient still feels occasionally tired, but not in distress, still with low grade fevers. Objective - Vital Signs/Intake and Output Vital Signs (last 24 hours): Temp Pulse Resp BP Pulse Ox 99.9 F H 80 20 134/69 98 07/08/18 22:44 07/08/18 22:44 07/08/18 22:44 07/08/18 22:44 07/08/18 22:44 - Medications Medications: Current Medications Acetaminophen (Tylenol 325mg Tab) 650 mg PO Q6H PRN PRN Reason: Fever >100.4 F Last Admin: 07/07/18 06:11 Dose: 650 mg Aspirin (Ecotrin) 81 mg PO DAILY [facility] Calcium Carbonate (Caltrate) 600 mg PO DAILY [facility] Last Admin: 07/08/18 11:25 Dose: 600 mg Cholecalciferol (Vitamin D) 1,000 intlu PO DAILY [facility] Last Admin: 07/08/18 11:25 Dose: 1,000 intlu Divalproex Sodium (Depakote Dr (*Bid*)) 250 mg PO AMHS [facility]; Protocol Last Admin: 07/08/18 22:23 Dose: 250 mg Duloxetine HCl (Cymbalta) 20 mg PO DAILY [facility] Last Admin: 07/08/18 11:24 Dose: 20 mg Gabapentin (Neurontin) 600 mg PO TID [facility]; Protocol Last Admin: 07/08/18 17:30 Dose: 600 mg Heparin Sodium (Porcine) (Heparin) 5,000 units SC Q12 [facility]; Protocol Last Admin: 07/08/18 22:24 Dose: 5,000 units Daptomycin 420 mg/ Sodium (Chloride) 100 mls @ 200 mls/hr IV Q24H [facility]; Protocol Stop: 07/10/18 09:16 Last Admin: 07/08/18 10:36 Dose: 200 mls/hr Lisinopril (Zestril) 2.5 mg PO DAILY [facility] Last Admin: 07/08/18 13:23 Dose: Not Given Metoprolol Tartrate (Lopressor) 50 mg PO BID [facility] Last Admin: 07/08/18 17:31 Dose: 50 mg Oxycodone HCl (Oxycodone Immediate Release Tab) 20 mg PO Q12 PRN PRN Reason: Pain, severe (8-10) Last Admin: 07/08/18 11:22 Dose: 20 mg Pantoprazole Sodium (Protonix Ec Tab) 40 mg PO ACB [facility] Last Admin: 07/08/18 08:00 Dose: Not Given Quetiapine Fumarate (Seroquel) 12.5 mg PO HS [facility]; Protocol Last Admin: 07/08/18 22:23 Dose: 12.5 mg Ropinirole HCl (Requip) 0.25 mg PO HS PRN PRN Reason: Restlessness Last Admin: 07/08/18 22:42 Dose: 0.25 mg - Labs Labs: 07/08/18 06:45 07/08/18 06:45 - Constitutional Appears: Chronically Ill - Head Exam Head Exam: NORMAL INSPECTION - Respiratory Exam Respiratory Exam: Decreased Breath Sounds - Cardiovascular Exam Cardiovascular Exam: +S1, +S2 - GI/Abdominal Exam GI & Abdominal Exam: Soft. absent: Tenderness Assessment and Plan - Assessment and Plan (Free Text) Plan: Assessment MSSA bacteremia, source is unclear, R/O endovascular infection questionable beta lactam allergy bilateral lower extremity edema probably due to venous stasis, no evidence of cellulitis history of severe sepsis due to methicillin-sensitive Staph aureus bacteremia, S/P treatment with 4-6 weeks of IV antibiotics elevated troponins R/O NSTEMI metastatic breast cancer on chemotherapy history of maculopapular rash with eosinophilia, consider allergic reaction R/O drug-induced history of sepsis due to Methicillin-sensitive Staph aureus bacteremia HTN osteoporosis former drug user Plan on Daptomycin for at least 28-42 days, but since beta lactam allergy is questionable, will try Cefazolin and observe 2D echo is negative, may consider [facility] will continue to monitor clinically
[2018-07-09] MEDS: ceFAZolin IV 2 gm in Dextrose 2 GM/50 ML BAG IVPB SCH (22:29)
[2018-07-10] MEDS: ceFAZolin IV 2 gm in Dextrose 2 GM/50 ML BAG IVPB SCH ×3 (06:04→23:39)
[2018-07-10 07:26] LABS: BASO # 0.08 K/mm3 (0.0-2.0); BASO % 0.8 % (0.0-3.0); EOS # 0.4 (0.0-0.7); EOS % 3.8 % (1.5-5.0); HEMOGLOBIN 8.8 g/dL (12.0-16.0); LYMPH # 2.2 (1.2-3.4); LYMPH % 21.5 % (22.0-35.0); MEAN CORPUSCULAR HEMOGLOBIN 24.4 pg (25.0-35.0); MEAN PLATELET VOLUME 8.8 fl (7.0-11.0); MONO % 19.8 % (1.0-6.0); RBC 3.61 10^6/uL (3.5-6.1); RED CELL DISTRIBUTION WIDTH 16.3 % (11.5-14.5); WHITE BLOOD COUNT 10.1 10^3/uL (4.5-11.0)
[2018-07-10 07:56] LABS: ALB/GLOB RATIO 0.7 (1.1-1.8); ALT/SGPT 24 U/L (7-56); AST/SGOT 95 U/L (14-36); BLOOD UREA NITROGEN 26 mg/dL (7-21); CALCIUM 9.3 mg/dL (8.4-10.5); GFR NON-AFRICAN AMERICAN > 60
[2018-07-10 08:48] LABS: MEAN CELL VOLUME 79.9 fl (80.0-105.0)
[2018-07-10] MEDS: Divalproex 250 mg DR (BID formulation) PO SCH ×2 (09:47→23:40)
[2018-07-10] MEDS: Pantoprazole 40 mg EC Tab PO SCH (09:49)
[2018-07-10] MEDS: Cholecalciferol 1,000 INTLU TAB PO SCH (09:50)
[2018-07-10] MEDS: oxyCODONE 20 mg Immediate Release Tab PO PRN ×2 (11:01→23:39)
--- NOTE | 2018-07-10 13:46 | CP.PCM.PCO ---
Physician Communication Note - Physician Communication Note Physician Communication Note: Pending [facility]
[2018-07-10] MEDS: POLYETHYLENE GLYCOL 3350 17 GM/Dose PACKET PO SCH (14:04)
--- NOTE | 2018-07-10 14:47 | CON ---
DATE: 07/10/2018 HISTORY OF PRESENT ILLNESS: The patient is a 62 year old female with history of depression and anxiety, who is being seen by Psychiatry on the medical floor due to altered mental status and history of depression and anxiety. I met with the patient over the weekend and Dr. Garcia met with her yesterday and found the patient to be disengaged, poor eye contact and juarez. I reviewed nursing notes and met with the patient at bedside. The patient had a difficult night, she was yelling because of pain. She has been taking medications on the unit. Patient does appear dysphoric consistent with Dr. Garcia's observation. The patient reports that she remembers me from a prior visit and her focus is improved since the weekend. She says she reports she feels better. Her eye contact and focus are improved though still inconsistent. She reports continued depression and she is agreeable to increase Cymbalta to help with the symptoms. Thought process is scattered, but less disorganized. She denies any hallucinations, does not appear to respond to internal stimuli. Insight and judgment are improving, but still considered to be poor due to intermittent confusion. MEDICATIONS: Include Seroquel 12.5 at bedtime, Cymbalta 20 mg daily, Depakote 250 a.m. and at bedtime. Labs and vitals were reviewed. IMPRESSION: Delirium with some improvement as well as history of depression and anxiety. The patient did appear to have difficult night, she had pain overnight and had been yelling due to pain, however, she presents calm and no apparent distress as of my interview with her this morning. RECOMMENDATIONS: At this time, we will increase to Cymbalta 20 mg p.o. b.i.d., for depression. Continue other medications as there is no acute indication to change. The patient reports that she is sleeping well currently, does not appear to be overtly hallucinating and her thought process is presenting with more clarity than prior interviews 3-4 days ago. Psychiatric will continue to followup. Next followup will be on July 12, 2018. Please request earlier f/u if there any acute changes and we will be happy to help. Sandra Valderrama MD MTDD
--- NOTE | 2018-07-10 15:48 | CP.PCM.PN ---
<Nima Shaffer - Last Filed: 07/10/18 15:43> Subjective - Date & Time of Evaluation Date of Evaluation: 07/10/18 Time of Evaluation: 10:00 - Subjective Subjective: Nima Shaffer DO PGY1 - Internal Medicine Donor Services Team Leader - Hospitalist Progress Note Patient was seen and examined this morning at bedside. Comfortably resting prior to examination No acute events reported overnight Denies any fevers, chills, chest pain, abd pain, n/v/d/c No complaints of rash, wheezing, sob. Objective - Vital Signs/Intake and Output Vital Signs (last 24 hours): Temp Pulse Resp BP Pulse Ox 99.3 F 79 18 113/67 97 07/10/18 14:00 07/10/18 14:00 07/10/18 14:00 07/10/18 14:00 07/10/18 14:00 Intake and Output: 07/10/18 07/10/18 06:59 18:59 Intake Total 360 Balance 360 - Medications Medications: Current Medications Acetaminophen (Tylenol 325mg Tab) 650 mg PO Q6H PRN PRN Reason: Fever >100.4 F Last Admin: 07/07/18 06:11 Dose: 650 mg Aspirin (Ecotrin) 81 mg PO DAILY [facility] Last Admin: 07/10/18 09:47 Dose: 81 mg Calcium Carbonate (Caltrate) 600 mg PO DAILY [facility] Last Admin: 07/10/18 09:46 Dose: 600 mg Cholecalciferol (Vitamin D) 1,000 intlu PO DAILY [facility] Last Admin: 07/10/18 09:50 Dose: 1,000 intlu Divalproex Sodium (Depakote Dr (*Bid*)) 250 mg PO AMHS [facility]; Protocol Last Admin: 07/10/18 09:47 Dose: 250 mg Duloxetine HCl (Cymbalta) 20 mg PO BID [facility] Last Admin: 07/10/18 09:51 Dose: 20 mg Gabapentin (Neurontin) 600 mg PO TID [facility]; Protocol Last Admin: 07/10/18 13:43 Dose: 600 mg Heparin Sodium (Porcine) (Heparin) 5,000 units SC Q12 [facility]; Protocol Last Admin: 07/10/18 09:47 Dose: 5,000 units Cefazolin Sodium/Dextrose (Ancef Iv 2 Gm Duplex) 2 gm in 50 mls @ 50 mls/hr IVPB Q8 [facility]; Protocol Last Admin: 07/10/18 13:42 Dose: 50 mls/hr Lisinopril (Zestril) 2.5 mg PO DAILY [facility] Last Admin: 07/10/18 09:50 Dose: Not Given Metoprolol Tartrate (Lopressor) 50 mg PO BID [facility] Last Admin: 07/10/18 09:47 Dose: Not Given Oxycodone HCl (Oxycodone Immediate Release Tab) 20 mg PO Q12 PRN PRN Reason: Pain, severe (8-10) Last Admin: 07/10/18 11:01 Dose: 20 mg Pantoprazole Sodium (Protonix Ec Tab) 40 mg PO ACB [facility] Last Admin: 07/10/18 09:49 Dose: 40 mg Polyethylene Glycol (Miralax) 17 gm PO DAILY [facility] Last Admin: 07/10/18 14:04 Dose: 17 gm Quetiapine Fumarate (Seroquel) 12.5 mg PO HS [facility]; Protocol Last Admin: 07/09/18 21:31 Dose: 12.5 mg Ropinirole HCl (Requip) 0.25 mg PO HS PRN PRN Reason: Restlessness Last Admin: 07/09/18 21:31 Dose: 0.25 mg - Labs Labs: 07/10/18 07:00 07/10/18 07:00 Assessment and Plan - Assessment and Plan (Free Text) Assessment: Depression: increasing cymbalta to 20 mg BID 62F w/ PMH of HTN, HLD, Stage IV Breast CA w/ bony metastasis, MSSA Bacteremia, CAD, OA, Depression presenting to [facility] on 07/04 s/p fall. Plan: Sepsis 2/2 MSSA Bacteremia Afebrile; Without leukocytosis 07/04 BCX - 2/2 Positive Gram Positive Cocci 07/08 BCX - 2/2 Negative to date IV Daptomycin started - 07/05 - Started Cefazolin 2gm 07/09 per ID Will need 4-6 weeks of antibiotic therapy as per ID Picc Line ordered this AM ID Recommending [facility]VI to r/o infectious vegetation Cardiology Consulted for [facility] ID Following, appreciate reccs Acetaminophen 650 Q6 PRN Fall: Most likely 2/2 gait instability/ weakness Xray of Right hip, BL knees negative for fracture PT Eval - Reccs DC to SUB Acute Rehab Chronic Pain 2/2 Hx Breast CA w/ bony mets Continue Oxycodone 20 Q12 PRN Continue Neuron 600 TID Palliative Care? Nutritional Support Poor appetite - boost supplement w/ meals Hx Depression Inc Cymbalta to 20 BID from 20 Daily per psych C/w 250 Depakote daily C/w 12.5 Seroqeul HS C/w 0.25 Ropinirole HS PRN Psych following, appreciate reccs Hx CAD Previously on Metoprolol 50BID, C/w ASA 81 QD C/w Lisnopril 2.5 Daily GI/DVT Protonix 40 Heparin 5000 Q12 Dispo: Once medically optimized, PT reccomends MARYJANE, Patient being denied MARYJANE placement at this time due to metz of dapto. Patient tolerated Cefazolin trial well yesterday; PICC inserted today; Will followup [facility] at this time Patient was seen, examined, and discussed w/ attending Dr. Summer Shaffer DO PGY1 - Internal Medicine Donor Services Team Leader <Summer Shaffer R - Last Filed: 07/11/18 07:41> Objective - Vital Signs/Intake and Output Vital Signs (last 24 hours): Temp Pulse Resp BP Pulse Ox 99.4 F 90 18 116/69 97 07/10/18 21:29 07/10/18 21:29 07/10/18 21:29 07/10/18 21:29 07/10/18 21:29 Intake and Output: 07/11/18 07/11/18 06:59 18:59 Intake Total 120 Output Total 1 Balance 119 - Medications Medications: Current Medications Acetaminophen (Tylenol 325mg Tab) 650 mg PO Q6H PRN PRN Reason: Fever >100.4 F Last Admin: 07/07/18 06:11 Dose: 650 mg Aspirin (Ecotrin) 81 mg PO DAILY [facility] Last Admin: 07/10/18 09:47 Dose: 81 mg Calcium Carbonate (Caltrate) 600 mg PO DAILY [facility] Last Admin: 07/10/18 09:46 Dose: 600 mg Cholecalciferol (Vitamin D) 1,000 intlu PO DAILY [facility] Last Admin: 07/10/18 09:50 Dose: 1,000 intlu Divalproex Sodium (Depakote Dr (*Bid*)) 250 mg PO [facility]; Protocol Last Admin: 07/10/18 23:40 Dose: 250 mg Duloxetine HCl (Cymbalta) 20 mg PO BID [facility] Last Admin: 07/10/18 17:48 Dose: 20 mg Gabapentin (Neurontin) 600 mg PO TID [facility]; Protocol Last Admin: 07/10/18 17:47 Dose: 600 mg Heparin Sodium (Porcine) (Heparin) 5,000 units SC Q12 [facility]; Protocol Last Admin: 07/10/18 23:40 Dose: 5,000 units Cefazolin Sodium/Dextrose (Ancef Iv 2 Gm Duplex) 2 gm in 50 mls @ 50 mls/hr IVPB Q8 [facility]; Protocol Last Admin: 07/11/18 05:27 Dose: 50 mls/hr Lisinopril (Zestril) 2.5 mg PO DAILY [facility] Last Admin: 07/10/18 09:50 Dose: Not Given Metoprolol Tartrate (Lopressor) 50 mg PO BID [facility] Last Admin: 07/10/18 17:48 Dose: 50 mg Oxycodone HCl (Oxycodone Immediate Release Tab) 20 mg PO Q12 PRN PRN Reason: Pain, severe (8-10) Last Admin: 07/10/18 23:39 Dose: 20 mg Pantoprazole Sodium (Protonix Ec Tab) 40 mg PO ACB [facility] Last Admin: 07/10/18 09:49 Dose: 40 mg Polyethylene Glycol (Miralax) 17 gm PO DAILY [facility] Last Admin: 07/10/18 14:04 Dose: 17 gm Quetiapine Fumarate (Seroquel) 12.5 mg PO HS [facility]; Protocol Last Admin: 07/10/18 23:40 Dose: 12.5 mg Ropinirole HCl (Requip) 0.25 mg PO HS PRN PRN Reason: Restlessness Last Admin: 07/10/18 23:40 Dose: 0.25 mg - Labs Labs: 07/11/18 05:42 07/11/18 05:42 Attending/Attestation - Attestation I have personally seen and examined this patient.: Yes I have fully participated in the care of the patient.: Yes I have reviewed all pertinent clinical information, including history, physical exam and plan: Yes Notes (Text): Patient seen and examined by me with resident at approximately 11:10AM on 07/10/18. Case including HPI, physical exam, and assessment and plan discussed with resident. Agree with above with following additions/corrections. Patient is a 62-year-old female past medical history significant for hypertension, hyperlipidemia, stage IV breast cancer with metastases to the bone, MSSA bacteremia, coronary artery disease, and osteoarthritis on chronic pain medications that presented to the emergency room for a fall with right hip pain. Patient states she is feeling ok. Complains of pain in her right hip. Patient with poor appetite. Encouraged to increase PO intake. Patient denies chest pain or palpitations. No nausea, vomiting, or abdominal pain. No headaches or dizziness. No dysuria. Patient afebrile. Physical exam: General: Awake and alert lying in bed in no acute distress. HEENT: Normocephalic, atraumatic. Extraocular muscles intact, pupils equal and reactive, no scleral icterus. Oropharynx is pink and moist. No pharyngeal erythema or exudate appreciated. Neck is supple. Cardiovascular: Normal rhythm. Normal S1 and S2. No murmurs, rubs, or gallops appreciated Pulmonary: Normal respiratory effort. No rhonchi, rales, or wheezing appreciated. Gastrointestinal: Soft, nondistended. Nontender. Positive bowel sounds all 4 quadrants. No guarding. Musculoskeletal: Moves all extremities. No calf tenderness. No edema. Central nervous system: AAOx3. Dermatologic: Skin warm and dry. Assessment and plan: Patient is a 62-year-old female past medical history significant for hypertension, hyperlipidemia, stage IV breast cancer with metastases to the bone, MSSA bacteremia, coronary artery disease, and osteo arthritis on chronic pain medications that presented to the emergency room for a fall with right hip pain. 1. Sepsis secondary to Bacteremia. Blood cultures positive for staph aureus. Leukocytosis resolved. Afebrile. ID following, recommendations appreciated. Antibiotics changed to Ancef. PICC team consulted. Cardiology consulted for [facility] for recurrent MSSA bacteremia. 2. Hip and knee pain s/p fall. Gait instablity. Pending MARY[facility]ANE. Continue with pain managment. Continue physical therapy. Right hip and pelvic xray per radiologist shows no acute fracture. Right knee xray per radiologist shows no evidence of fracture. Left knee xray per radiologist shows normal radiographs of left knee. Head CT per radiologist showed suboptimal examination due to patient positioning, no acute intracranial abnormality. 3. Essential Hypertension. Continue lisinopril and lopressor 4. Chronic pain. Neuropathy. Continue home oxycodone as needed. Continue Neurontin. 5. Chronic anemia. H&H stable. No signs of bleeding. Continue to monitor. 6. Metastatic breast cancer. Patient gets infusions at [facility]. Patient to continue follow up with her doctor. 7. Psychiatric disorder. Continue Seroquel, Cymbalta, and Depakote. Psychiatry recommendations appreciated. 8. Restless leg syndrome. Continue requip prn 9. GI/DVT prophylaxis. Protonix/heparin. Case discussed in detail with the patient regarding current diagnosis and treatment plan. All questions answered.
--- NOTE | 2018-07-10 22:29 | CP.PCM.PN ---
Subjective - Date & Time of Evaluation Date of Evaluation: 07/10/18 Time of Evaluation: 07:40 - Subjective Subjective: Comfortable in bed, still with low grade temperatures, still feels weak. Objective - Vital Signs/Intake and Output Vital Signs (last 24 hours): Temp Pulse Resp BP Pulse Ox 99.0 F 72 18 108/61 96 07/09/18 14:00 07/09/18 14:00 07/09/18 14:00 07/09/18 14:00 07/09/18 14:00 Intake and Output: 07/09/18 07/10/18 18:59 06:59 Intake Total 240 360 Balance 240 360 - Medications Medications: Current Medications Acetaminophen (Tylenol 325mg Tab) 650 mg PO Q6H PRN PRN Reason: Fever >100.4 F Last Admin: 07/07/18 06:11 Dose: 650 mg Aspirin (Ecotrin) 81 mg PO DAILY [facility] Last Admin: 07/09/18 10:23 Dose: 81 mg Calcium Carbonate (Caltrate) 600 mg PO DAILY [facility] Last Admin: 07/09/18 10:23 Dose: 600 mg Cholecalciferol (Vitamin D) 1,000 intlu PO DAILY [facility] Last Admin: 07/09/18 10:23 Dose: 1,000 intlu Divalproex Sodium (Depakote Dr (*Bid*)) 250 mg PO [facility]; Protocol Last Admin: 07/09/18 21:31 Dose: 250 mg Duloxetine HCl (Cymbalta) 20 mg PO DAILY [facility] Last Admin: 07/09/18 10:23 Dose: 20 mg Gabapentin (Neurontin) 600 mg PO TID [facility]; Protocol Last Admin: 07/09/18 17:47 Dose: 600 mg Heparin Sodium (Porcine) (Heparin) 5,000 units SC Q12 [facility]; Protocol Last Admin: 07/09/18 21:31 Dose: 5,000 units Daptomycin 420 mg/ Sodium (Chloride) 100 mls @ 200 mls/hr IV Q24H [facility]; Protocol Stop: 07/10/18 09:16 Last Admin: 07/08/18 10:36 Dose: 200 mls/hr Cefazolin Sodium/Dextrose (Ancef Iv 2 Gm Duplex) 2 gm in 50 mls @ 50 mls/hr IVPB Q8 [facility]; Protocol Lisinopril (Zestril) 2.5 mg PO DAILY [facility] Last Admin: 07/09/18 10:25 Dose: 2.5 mg Metoprolol Tartrate (Lopressor) 50 mg PO BID [facility] Last Admin: 07/09/18 17:47 Dose: 50 mg Oxycodone HCl (Oxycodone Immediate Release Tab) 20 mg PO Q12 PRN PRN Reason: Pain, severe (8-10) Last Admin: 07/09/18 14:27 Dose: 20 mg Pantoprazole Sodium (Protonix Ec Tab) 40 mg PO ACB [facility] Last Admin: 07/08/18 08:00 Dose: Not Given Quetiapine Fumarate (Seroquel) 12.5 mg PO HS [facility]; Protocol Last Admin: 07/09/18 21:31 Dose: 12.5 mg Ropinirole HCl (Requip) 0.25 mg PO HS PRN PRN Reason: Restlessness Last Admin: 07/09/18 21:31 Dose: 0.25 mg - Labs Labs: 07/09/18 06:45 07/09/18 06:45 - Constitutional Appears: Chronically Ill - Head Exam Head Exam: NORMAL INSPECTION - Respiratory Exam Respiratory Exam: Decreased Breath Sounds - Cardiovascular Exam Cardiovascular Exam: +S1, +S2 - GI/Abdominal Exam GI & Abdominal Exam: Soft. absent: Tenderness Assessment and Plan - Assessment and Plan (Free Text) Plan: Assessment MSSA bacteremia, source is unclear, R/O endovascular infection questionable beta lactam allergy bilateral lower extremity edema probably due to venous stasis, no evidence of cellulitis history of severe sepsis due to methicillin-sensitive Staph aureus bacteremia, S/P treatment with 4-6 weeks of IV antibiotics elevated troponins R/O NSTEMI metastatic breast cancer on chemotherapy history of maculopapular rash with eosinophilia, consider allergic reaction R/O drug-induced history of sepsis due to Methicillin-sensitive Staph aureus bacteremia HTN osteoporosis former drug user Plan on Cefazolin for at least 28-42 days; repeat blood cx are negative so far 2D echo is negative, should consider [facility] will continue to monitor clinically
[2018-07-11] MEDS: ceFAZolin IV 2 gm in Dextrose 2 GM/50 ML BAG IVPB SCH ×3 (05:27→21:44)
[2018-07-11 05:52] LABS: BASO # 0.08 K/mm3 (0.0-2.0); BASO % 0.8 % (0.0-3.0); EOS # 0.4 (0.0-0.7); EOS % 3.7 % (1.5-5.0); HEMOGLOBIN 8.7 g/dL (12.0-16.0); LYMPH % 20.2 % (22.0-35.0); MEAN CELL VOLUME 80.1 fl (80.0-105.0); MEAN CORPUSCULAR HEMOGLOBIN 24.4 pg (25.0-35.0); MEAN CORPUSCULAR HGB CONC 30.4 g/dl (31.0-37.0); MEAN PLATELET VOLUME 9.6 fl (7.0-11.0); MONO # 1.9 (0.1-0.6); MONO % 19.3 % (1.0-6.0); RBC 3.57 10^6/uL (3.5-6.1); RED CELL DISTRIBUTION WIDTH 16.1 % (11.5-14.5)
[2018-07-11 05:58] LABS: ALB/GLOB RATIO 0.7 (1.1-1.8); ALBUMIN 3.1 g/dL (3.0-4.8); ALT/SGPT 22 U/L (7-56); AST/SGOT 98 U/L (14-36); BLOOD UREA NITROGEN 22 mg/dL (7-21); CALCIUM 9.1 mg/dL (8.4-10.5); GFR NON-AFRICAN AMERICAN > 60
--- NOTE | 2018-07-11 07:13 | CP.PCM.PCO ---
Physician Communication Note - Physician Communication Note Physician Communication Note: [facility] scheduled for Saturday AM
[2018-07-11] MEDS: Divalproex 250 mg DR (BID formulation) PO SCH ×2 (09:48→21:36)
[2018-07-11] MEDS: POLYETHYLENE GLYCOL 3350 17 GM/Dose PACKET PO SCH (09:49)
[2018-07-11] MEDS: Pantoprazole 40 mg EC Tab PO SCH (09:49)
[2018-07-11] MEDS: Cholecalciferol 1,000 INTLU TAB PO SCH (09:49)
--- NOTE | 2018-07-11 10:25 | CP.PCM.CON ---
History of Present Illness - History of Present Illness History of Present Illness: Palliative consult requested by Dr Kaci Silva Reason: Goals of care This is a 62 year old female with history of HTN, HLD, metastatic breast cancer, CAD and OA who presented to the hospital on 07/04/18 via EMS after falling at home. The patient was unaware of how she fell, only that she woke up on the floor. She relies on a walker to ambulate and usually has a home health aide. She is complained of right knee and hip pain arrival. Patient denied any fever, chills, headache, dizziness, chest pain, shortness of breath, dyspnea on e xertion, cough, diaphoresis, abdominal pain, nausea, vomiting, diarrhea, back pain, neck pain, or other complaints. X ray's of knees, R hip and pelvis: Negative for fracture Head CT: Negative Initial Labs :Wbc 12.8, Hgb 9.4, K 3.5, AST 46, BNP 229.60, Procalitonin 3.03. H flu negative. Blood cultures + Staph A ECHO: LV mild hypertrophy, EF 55-60%, trivial AR, mild/mod MR, mild TR, no effusions or thrombus. PMHx: stage IV invasive ductal carcinoma/breast cancer with bony, MSSA bacteremia, HTN, CAD, OA,peripheral neuropathy,restless leg syndrome, seizure disorder, anxiety/depression. PSHx: left hip surgery, ankle surgery Social History: Non smoker,denies alcohol and drugs. Lives alone. Family History: Father>pelvic cancer, mother > CVA. Advance Care Planning: The patient does not have an Advanced Directive Review of Systems: As per HPI, 12 point ROS otherwise negative. Past Patient History - Infectious Disease Hx of Infectious Diseases: None - Tetanus Immunizations Tetanus Immunization: Unknown - Past Social History Smoking Status: Unknown If Ever Smoked - CARDIAC Hx Cardiac Disorders: Yes (CAD) Hx Hypercholesterolemia: Yes Hx Hypertension: Yes - PULMONARY Hx Respiratory Disorders: No - NEUROLOGICAL Hx Neurological Disorder: No - HEENT Hx HEENT Problems: No - RENAL Hx Chronic Kidney Disease: No - ENDOCRINE/METABOLIC Hx Endocrine Disorders: No - HEMATOLOGICAL/ONCOLOGICAL Hx Cancer: Yes - INTEGUMENTARY Hx Dermatological Problems: No - MUSCULOSKELETAL/RHEUMATOLOGICAL Hx Arthritis: Yes - GASTROINTESTINAL Hx Gastrointestinal Disorders: No - GENITOURINARY/GYNECOLOGICAL Hx Genitourinary Disorders: No - PSYCHIATRIC Hx Anxiety: Yes Hx Depression: Yes - SURGICAL HISTORY Hx Orthopedic Surgery: Yes - ANESTHESIA Hx Anesthesia: Yes Hx Anesthesia Reactions: No Hx Malignant Hyperthermia: No Meds Allergies/Adverse Reactions: Allergies Allergy/AdvReac Type Severity Reaction Status Date / Time No Known Allergies Allergy Verified 03/03/18 12:47 - Medications Medications: Current Medications Acetaminophen (Tylenol 325mg Tab) 650 mg PO Q6H PRN PRN Reason: Fever >100.4 F Last Admin: 07/07/18 06:11 Dose: 650 mg Aspirin (Ecotrin) 81 mg PO DAILY [facility] Last Admin: 07/11/18 09:48 Dose: 81 mg Calcium Carbonate (Caltrate) 600 mg PO DAILY [facility] Last Admin: 07/11/18 09:48 Dose: 600 mg Cholecalciferol (Vitamin D) 1,000 intlu PO DAILY [facility] Last Admin: 07/11/18 09:49 Dose: Not Given Divalproex Sodium (Depakote Dr (*Bid*)) 250 mg PO AMHS [facility]; Protocol Last Admin: 07/11/18 09:48 Dose: 250 mg Duloxetine HCl (Cymbalta) 20 mg PO BID [facility] Last Admin: 07/11/18 10:14 Dose: 20 mg Gabapentin (Neurontin) 600 mg PO TID [facility]; Protocol Last Admin: 07/11/18 09:52 Dose: 600 mg Heparin Sodium (Porcine) (Heparin) 5,000 units SC Q12 [facility]; Protocol Last Admin: 07/11/18 09:48 Dose: 5,000 units Cefazolin Sodium/Dextrose (Ancef Iv 2 Gm Duplex) 2 gm in 50 mls @ 50 mls/hr IVPB Q8 [facility]; Protocol Last Admin: 07/11/18 05:27 Dose: 50 mls/hr Lisinopril (Zestril) 2.5 mg PO DAILY [facility] Last Admin: 07/11/18 09:49 Dose: Not Given Metoprolol Tartrate (Lopressor) 50 mg PO BID [facility] Last Admin: 07/11/18 09:48 Dose: Not Given Oxycodone HCl (Oxycodone Immediate Release Tab) 20 mg PO Q12 PRN PRN Reason: Pain, severe (8-10) Last Admin: 07/10/18 23:39 Dose: 20 mg Pantoprazole Sodium (Protonix Ec Tab) 40 mg PO ACB [facility] Last Admin: 07/11/18 09:49 Dose: Not Given Polyethylene Glycol (Miralax) 17 gm PO DAILY [facility] Last Admin: 07/11/18 09:49 Dose: Not Given Quetiapine Fumarate (Seroquel) 12.5 mg PO HS [facility]; Protocol Last Admin: 07/10/18 23:40 Dose: 12.5 mg Ropinirole HCl (Requip) 0.25 mg PO HS PRN PRN Reason: Restlessness Last Admin: 07/10/18 23:40 Dose: 0.25 mg Physical Exam - Constitutional Appears: Chronically Ill - Head Exam Head Exam: NORMOCEPHALIC - Eye Exam Eye Exam: Normal appearance, PERRL - ENT Exam ENT Exam: Mucous Membranes Moist, Normal Oropharynx - Respiratory Exam Respiratory Exam: Clear to Auscultation Bilateral, NORMAL BREATHING PATTERN - Cardiovascular Exam Cardiovascular Exam: REGULAR RHYTHM, +S1, +S2 - GI/Abdominal Exam GI & Abdominal Exam: Normal Bowel Sounds, Soft - Neurological Exam Neurological exam: Alert Additional comments: oriented to place and self - Skin Skin Exam: Dry, Pallor - Additional Findings Additional findings: Palliative performance scale rating 40% Results - Vital Signs Recent Vital Signs: Last Vital Signs Temp 98.7 F 07/11/18 06:00 Pulse 69 07/11/18 09:49 Resp 18 07/11/18 06:00 BP 99/61 L 07/11/18 09:49 Pulse Ox 95 07/11/18 06:00 - Labs Result Diagrams: 07/11/18 05:42 07/11/18 05:42 Labs: Laboratory Results - last 24 hr 07/11/18 07/11/18 05:42 05:42 WBC 10.0 RBC 3.57 Hgb 8.7 L Hct 28.6 L MCV 80.1 MCH 24.4 L MCHC 30.4 L RDW 16.1 H Plt Count 313 MPV 9.6 Neut % (Auto) 56.0 Lymph % (Auto) 20.2 L Edwards % (Auto) 19.3 H Eos % (Auto) 3.7 Baso % (Auto) 0.8 Lymph # (Auto) 2.0 Edwards # (Auto) 1.9 H Eos # (Auto) 0.4 Baso # (Auto) 0.08 Absolute Neuts (auto) 5.58 Sodium 136 Potassium 4.3 Chloride 97 L Carbon Dioxide 31 Anion Gap 12 BUN 22 H Creatinine 0.7 Est GFR ( Amer) > 60 Est GFR (Non-Af Amer) > 60 Random Glucose 90 Calcium 9.1 Total Bilirubin 0.3 AST 98 H ALT 22 Alkaline Phosphatase 125 Total Protein 7.5 Albumin 3.1 Globulin 4.5 Albumin/Globulin Ratio 0.7 L Assessment & Plan - Assessment and Plan (Free Text) Assessment: 62 year old female with history of metastatic breast cancer, CAT,HTN, josselyn teremia, OA, peripheral neuropathy who is admitted after a fall at home with sepsis, bacteramia, right hip/knee pain, deconditioning. The patient is known to me from pervious admission(01/2018). During previous visit I tried to initiate medical POA and advance care planning. The patient was very resistant. Patient has a son in law and brother Riki Duncan who offered to help but patient declined I saw the patient this morning. She isl lethargic, denies pain/dyspnea. She states that her brother Raza Duncan is her POA. She was made aware of the benefits and burdens of CPR/intubation. She does not want to discuss advance care planning at this time. She intends to continue treatment under the care of her oncologist in [place]. Time spent in goals of care and advance care planning, 20 minutes. Plan: Goals of care and advance care planning Sepsis/bacteremia:ID recs reviewed was on Daptomysin now switched to Ancef Cardiology recs for [facility] Hip /knee pain s/p fall: continue PT/OT, transfer to [facility]. Oxydodone, Neurontin. Breast cancer: Will f/u with her oncologist as [facility] HTN: continue Lopressor and Isinoptril Restless Leg Syndrome; continue Requip
--- NOTE | 2018-07-11 10:29 | PN ---
DATE: 07/11/2018 SUBJECTIVE: The patient is seen earlier today in 572, bed two. No fevers and no chills. PHYSICAL EXAMINATION: VITAL SIGNS: Temperature is 99, blood pressure is 100/60, respiratory rate of 16. HEENT: Unremarkable. NECK: Supple. LUNGS: Have decreased breath sounds. HEART: Normal S1 and S2. ABDOMEN: Soft, nontender. LABORATORY DATA: Reveals the white count of 10,000, hemoglobin of 8. Chemistries are noted including a procalcitonin which is 3.30. Influenza is negative. Microbiology reveals the repeat blood cultures negative from 07/08/2018, the initial one from 07/04/2018 is positive. ASSESSMENT AND PLAN: This is a 62-year-old female who was admitted with fever, tachycardia, and sepsis sensitive to staph aureus bacteremia, question rule out a deep seated infection, in a patient who has had a history of pansensitive staph aureus bacteremia x3 episodes last year, will need 28 days to 42 days of antibiotics. Currently on cefazolin tolerating it well, today is day number 4 of 28-42 days with a weekly CBC, SMA , sed rate and C-reactive protein and repeat echo and close followup. Jamel Valencia MD
[2018-07-11] MEDS ORDERED: Sodium Chloride 0.9% 500 ML IV STA (14:14)
[2018-07-11] MEDS: oxyCODONE 20 mg Immediate Release Tab PO PRN (17:55)
--- NOTE | 2018-07-11 21:56 | CP.PCM.PN ---
<Nima Shaffer - Last Filed: 07/11/18 21:50> Subjective - Date & Time of Evaluation Date of Evaluation: 07/11/18 Time of Evaluation: 21:50 - Subjective Subjective: Nima Shaffer DO PGY1 - Internal Medicine Sports Athletic Trainer - Hospitalist Progress Note Patient was seen and examined at bedside; no acute events reported overnight Denies any chest pain, sob, abd pain, n/v/d/c. Objective - Vital Signs/Intake and Output Vital Signs (last 24 hours): Temp Pulse Resp BP Pulse Ox 99.1 F 80 20 124/68 95 07/11/18 21:27 07/11/18 21:27 07/11/18 21:27 07/11/18 21:27 07/11/18 21:27 - Medications Medications: Current Medications Acetaminophen (Tylenol 325mg Tab) 650 mg PO Q6H PRN PRN Reason: Fever >100.4 F Last Admin: 07/07/18 06:11 Dose: 650 mg Aspirin (Ecotrin) 81 mg PO DAILY [facility] Last Admin: 07/11/18 09:48 Dose: 81 mg Calcium Carbonate (Caltrate) 600 mg PO DAILY [facility] Last Admin: 07/11/18 09:48 Dose: 600 mg Cholecalciferol (Vitamin D) 1,000 intlu PO DAILY [facility] Last Admin: 07/11/18 09:49 Dose: Not Given Divalproex Sodium (Depakote Dr (*Bid*)) 250 mg PO AMHS [facility]; Protocol Last Admin: 07/11/18 21:36 Dose: 250 mg Duloxetine HCl (Cymbalta) 20 mg PO BID [facility] Last Admin: 07/11/18 17:55 Dose: 20 mg Gabapentin (Neurontin) 600 mg PO TID [facility]; Protocol Last Admin: 07/11/18 17:54 Dose: 600 mg Heparin Sodium (Porcine) (Heparin) 5,000 units SC Q12 [facility]; Protocol Last Admin: 07/11/18 21:37 Dose: 5,000 units Cefazolin Sodium/Dextrose (Ancef Iv 2 Gm Duplex) 2 gm in 50 mls @ 50 mls/hr IVPB Q8 [facility]; Protocol Last Admin: 07/11/18 21:44 Dose: 50 mls/hr Lisinopril (Zestril) 2.5 mg PO DAILY [facility] Last Admin: 07/11/18 09:49 Dose: Not Given Metoprolol Tartrate (Lopressor) 50 mg PO BID [facility] Last Admin: 07/11/18 18:57 Dose: 50 mg Oxycodone HCl (Oxycodone Immediate Release Tab) 20 mg PO Q12 PRN PRN Reason: Pain, severe (8-10) Last Admin: 07/11/18 17:55 Dose: 20 mg Pantoprazole Sodium (Protonix Ec Tab) 40 mg PO ACB [facility] Last Admin: 07/11/18 09:49 Dose: Not Given Polyethylene Glycol (Miralax) 17 gm PO DAILY [facility] Last Admin: 07/11/18 09:49 Dose: Not Given Quetiapine Fumarate (Seroquel) 12.5 mg PO HS [facility]; Protocol Last Admin: 07/11/18 21:36 Dose: 12.5 mg Ropinirole HCl (Requip) 0.25 mg PO HS PRN PRN Reason: Restlessness Last Admin: 07/10/18 23:40 Dose: 0.25 mg - Labs Labs: 07/11/18 05:42 07/11/18 05:42 - Constitutional Appears: Non-toxic, Comfortable, No acute distress - Head Exam Head Exam: ATRAUMATIC, NORMOCEPHALIC - Eye Exam Eye Exam: EOMI, Normal appearance, PERRL - Respiratory Exam Respiratory Exam: Clear to Ausculation Bilateral, NORMAL BREATHING PATTERN - Cardiovascular Exam Cardiovascular Exam: REGULAR RHYTHM, RRR, +S1, +S2. absent: Murmur - GI/Abdominal Exam GI & Abdominal Exam: Soft. absent: Tenderness - Extremities Exam Extremities Exam: Normal Capillary Refill, Trace edema - Back Exam Back Exam: NORMAL INSPECTION. 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 Plan: Sepsis 2/2 MSSA Bacteremia Afebrile; Without leukocytosis 07/04 BCX - 2/2 Positive Gram Positive Cocci 07/08 BCX - 2/2 Negative to date IV Daptomycin 07/05- Cefazolin 2gm started 07/09 per ID Will need 4-6 weeks of antibiotic therapy as per ID ID Recommending [facility] to r/o infectious vegetation - [facility] scheduled for saturday - / [facility] Consulted for [facility] ID Following, appreciate reccs Acetaminophen 650 Q6 PRN Fall: Most likely 2/2 gait instability/ weakness Xray of Right hip, BL knees negative for fracture PT Eval - Reccs DC to SUB Acute Rehab Chronic Pain 2/2 Hx Breast CA w/ bony mets Continue Oxycodone 20 Q12 PRN Continue Neuron 600 TID Palliative Care: Patient resistant for advance care planning; Nutritional Support Poor appetite - boost supplement w/ meals Hx Depression C/w Cymbalta to 20 BID C/w 250 Depakote daily C/w 12.5 Seroqeul HS C/w 0.25 Ropinirole HS PRN Psych following, appreciate reccs Hx CAD Previously on Metoprolol 50BID, C/w ASA 81 QD C/w Lisnopril 2.5 Daily GI/DVT Protonix 40 Heparin 5000 Q12 Dispo: Once medically optimized, PT reccomends MARYJANE, Patient being denied MARYJANE placement at this time due to metz of dapto. Patient was seen, examined, and discussed w/ attending Dr. Summer Shaffer DO PGY1 - Internal Medicine Sports Athletic Trainer <Summer Shaffer R - Last Filed: 07/12/18 07:27> Objective - Vital Signs/Intake and Output Vital Signs (last 24 hours): Temp Pulse Resp BP Pulse Ox 99.1 F 80 20 124/68 95 07/11/18 21:27 07/11/18 21:27 07/11/18 21:27 07/11/18 21:27 07/11/18 21:27 - Medications Medications: Current Medications Acetaminophen (Tylenol 325mg Tab) 650 mg PO Q6H PRN PRN Reason: Fever >100.4 F Last Admin: 07/07/18 06:11 Dose: 650 mg Aspirin (Ecotrin) 81 mg PO DAILY [facility] Last Admin: 07/11/18 09:48 Dose: 81 mg Calcium Carbonate (Caltrate) 600 mg PO DAILY [facility] Last Admin: 07/11/18 09:48 Dose: 600 mg Cholecalciferol (Vitamin D) 1,000 intlu PO DAILY [facility] Last Admin: 07/11/18 09:49 Dose: Not Given Divalproex Sodium (Depakote Dr (*Bid*)) 250 mg PO AMHS [facility]; Protocol Last Admin: 07/11/18 21:36 Dose: 250 mg Duloxetine HCl (Cymbalta) 20 mg PO BID [facility] Last Admin: 07/11/18 17:55 Dose: 20 mg Gabapentin (Neurontin) 600 mg PO TID [facility]; Protocol Last Admin: 07/11/18 17:54 Dose: 600 mg Heparin Sodium (Porcine) (Heparin) 5,000 units SC Q12 [facility]; Protocol Last Admin: 07/11/18 21:37 Dose: 5,000 units Cefazolin Sodium/Dextrose (Ancef Iv 2 Gm Duplex) 2 gm in 50 mls @ 50 mls/hr IVPB Q8 [facility]; Protocol Last Admin: 07/12/18 05:46 Dose: 50 mls/hr Lisinopril (Zestril) 2.5 mg PO DAILY [facility] Last Admin: 07/11/18 09:49 Dose: Not Given Metoprolol Tartrate (Lopressor) 50 mg PO BID [facility] Last Admin: 07/11/18 18:57 Dose: 50 mg Oxycodone HCl (Oxycodone Immediate Release Tab) 20 mg PO Q12 PRN PRN Reason: Pain, severe (8-10) Last Admin: 07/12/18 06:22 Dose: 20 mg Pantoprazole Sodium (Protonix Ec Tab) 40 mg PO ACB [facility] Last Admin: 07/11/18 09:49 Dose: Not Given Polyethylene Glycol (Miralax) 17 gm PO DAILY [facility] Last Admin: 07/11/18 09:49 Dose: Not Given Quetiapine Fumarate (Seroquel) 12.5 mg PO HS [facility]; Protocol Last Admin: 07/11/18 21:36 Dose: 12.5 mg Ropinirole HCl (Requip) 0.25 mg PO HS PRN PRN Reason: Restlessness Last Admin: 07/10/18 23:40 Dose: 0.25 mg - Labs Labs: 07/12/18 05:40 07/12/18 05:40 Attending/Attestation - Attestation I have personally seen and examined this patient.: Yes I have fully participated in the care of the patient.: Yes I have reviewed all pertinent clinical information, including history, physical exam and plan: Yes Notes (Text): Patient seen and examined by me with resident at approximately 10:40AM on 07/11/18. Case including HPI, physical exam, and assessment and plan discussed with resident. Agree with above with following additions/corrections. Patient is a 62-year-old female past medical history significant for hypertension, hyperlipidemia, stage IV breast cancer with metastases to the bone, MSSA bacteremia, coronary artery disease, and osteoarthritis on chronic pain medications that presented to the emergency room for a fall with right hip pain. Patient states sleeping but easily arousable. States she is feeling ok. Patient feels tired. Patient denies chest pain or palpitations. No nausea, vomiting, or abdominal pain. No headaches or dizziness. No dysuria. Patient afebrile. Physical exam: General: Awake and alert lying in bed in no acute distress. HEENT: Normocephalic, atraumatic. Extraocular muscles intact, pupils equal and reactive, no scleral icterus. Oropharynx is pink and moist. No pharyngeal erythema or exudate appreciated. Neck is supple. Cardiovascular: Normal rhythm. Normal S1 and S2. No murmurs, rubs, or gallops appreciated Pulmonary: Normal respiratory effort. No rhonchi, rales, or wheezing a ppreciated. Gastrointestinal: Soft, nondistended. Nontender. Positive bowel sounds all 4 quadrants. No guarding. Musculoskeletal: Moves all extremities. No calf tenderness. No edema. Central nervous system: AAOx3. Dermatologic: Skin warm and dry. Assessment and plan: Patient is a 62-year-old female past medical history significant for hypertension, hyperlipidemia, stage IV breast cancer with m etastases to the bone, MSSA bacteremia, coronary artery disease, and osteoarthritis on chronic pain medications that presented to the emergency room for a fall with right hip pain. 1. Sepsis secondary to MSSA Bacteremia. Blood cultures positive for staph aureus. Leukocytosis resolved. Afebrile. ID following, recommendations appreciated. Contiunue Ancef. PICC placed. Cardiology consulted for PURVI for recurrent MSSA bacteremia, [facility] on 07/14/18. 2. Hip and knee pain s/p fall. Gait instablity. Pending MARYJANE after [facility] completed. Continue with pain management. Continue physical therapy. Right hip and pelvic xray per radiologist shows no acute fracture. Right knee xray per radiologist shows no evidence of fracture. Left knee xray per radiologist shows normal radiographs of left knee. Head CT per radiologist showed suboptimal examination due to patient positioning, no acute intracranial abnormality. 3. Essential Hypertension. Continue lisinopril and lopressor 4. Chronic pain. Neuropathy. Continue home oxycodone as needed. Continue Neurontin. 5. Chronic anemia. H&H stable. No signs of bleeding. Continue to monitor. 6. Metastatic breast cancer. Patient gets infusions at [facility]. Patient to continue follow up with her doctor. 7. Psychiatric disorder. Continue Seroquel, Cymbalta, and Depakote. Psychiatry recommendations appreciated. 8. Restless leg syndrome. Continue requip prn 9. GI/DVT prophylaxis. Protonix/heparin. Case discussed in detail with the patient regarding current diagnosis and treatment plan. All questions answered.
[2018-07-12] MEDS: ceFAZolin IV 2 gm in Dextrose 2 GM/50 ML BAG IVPB SCH ×3 (05:46→22:59)
[2018-07-12 06:17] LABS: BASO # 0.04 K/mm3 (0.0-2.0); BASO % 0.4 % (0.0-3.0); EOS # 0.6 (0.0-0.7); EOS % 6.6 % (1.5-5.0); HEMOGLOBIN 8.8 g/dL (12.0-16.0); LYMPH # 2.2 (1.2-3.4); LYMPH % 22.9 % (22.0-35.0); MEAN CELL VOLUME 80.3 fl (80.0-105.0); MEAN CORPUSCULAR HEMOGLOBIN 24.1 pg (25.0-35.0); MEAN PLATELET VOLUME 9.3 fl (7.0-11.0); MONO # 1.6 (0.1-0.6); RBC 3.65 10^6/uL (3.5-6.1); RED CELL DISTRIBUTION WIDTH 16.1 % (11.5-14.5); WHITE BLOOD COUNT 9.5 10^3/uL (4.5-11.0)
[2018-07-12] MEDS: oxyCODONE 20 mg Immediate Release Tab PO PRN ×2 (06:22→18:03)
[2018-07-12 06:30] LABS: ALB/GLOB RATIO 0.7 (1.1-1.8); ALBUMIN 3.1 g/dL (3.0-4.8); ALT/SGPT 21 U/L (7-56); AST/SGOT 111 U/L (14-36); BLOOD UREA NITROGEN 24 mg/dL (7-21); CALCIUM 9.5 mg/dL (8.4-10.5); GFR NON-AFRICAN AMERICAN > 60
[2018-07-12] MEDS: Divalproex 250 mg DR (BID formulation) PO SCH ×2 (10:26→23:05)
[2018-07-12] MEDS: POLYETHYLENE GLYCOL 3350 17 GM/Dose PACKET PO SCH (10:26)
[2018-07-12] MEDS: Cholecalciferol 1,000 INTLU TAB PO SCH (10:26)
--- NOTE | 2018-07-12 13:12 | CP.PCM.PN ---
<Nima Shaffer - Last Filed: 07/12/18 13:19> Subjective - Date & Time of Evaluation Date of Evaluation: 07/12/18 Time of Evaluation: 13:04 - Subjective Subjective: Nima Shaffer DO PGY1 - Internal Medicine Tool Drawing Checker - Hospitalist Progress Note Patient was seen and examined this morning at bedside; Overnight, patient complaining of leg pain - Given 30mg Toradol No complaints upon evaluation this morning; No fevers, chills, chest pain, sob, abd pain, n/v Objective - Vital Signs/Intake and Output Vital Signs (last 24 hours): Temp Pulse Resp BP Pulse Ox 97.5 F L 70 17 130/79 96 07/12/18 06:00 07/12/18 10:27 07/12/18 06:00 07/12/18 10:27 07/12/18 06:00 - Medications Medications: Current Medications Acetaminophen (Tylenol 325mg Tab) 650 mg PO Q6H PRN PRN Reason: Fever >100.4 F Last Admin: 07/07/18 06:11 Dose: 650 mg Aspirin (Ecotrin) 81 mg PO DAILY COUNTS INCLUDE 234 BEDS AT THE [facility] Last Admin: 07/12/18 10:26 Dose: 81 mg Calcium Carbonate (Caltrate) 600 mg PO DAILY COUNTS INCLUDE 234 BEDS AT THE [facility] Last Admin: 07/12/18 10:26 Dose: 600 mg Cholecalciferol (Vitamin D) 1,000 intlu PO DAILY OLGA Last Admin: 07/12/18 10:26 Dose: 1,000 intlu Divalproex Sodium (Depakote Dr (*Bid*)) 250 mg PO AMHS OLGA; Protocol Last Admin: 07/12/18 10:26 Dose: 250 mg Duloxetine HCl (Cymbalta) 20 mg PO BID OLGA Last Admin: 07/12/18 10:27 Dose: 20 mg Gabapentin (Neurontin) 600 mg PO TID OLGA; Protocol Last Admin: 07/12/18 10:26 Dose: 600 mg Heparin Sodium (Porcine) (Heparin) 5,000 units SC Q12 OLGA; Protocol Last Admin: 07/12/18 10:27 Dose: 5,000 units Cefazolin Sodium/Dextrose (Ancef Iv 2 Gm Duplex) 2 gm in 50 mls @ 50 mls/hr IVPB Q8 OLGA; Protocol Last Admin: 07/12/18 05:46 Dose: 50 mls/hr Lisinopril (Zestril) 2.5 mg PO DAILY COUNTS INCLUDE 234 BEDS AT THE [facility] Last Admin: 07/12/18 10:26 Dose: 2.5 mg Metoprolol Tartrate (Lopressor) 50 mg PO BID COUNTS INCLUDE 234 BEDS AT THE [facility] Last Admin: 07/12/18 10:27 Dose: 50 mg Oxycodone HCl (Oxycodone Immediate Release Tab) 20 mg PO Q12 PRN PRN Reason: Pain, severe (8-10) Last Admin: 07/12/18 06:22 Dose: 20 mg Pantoprazole Sodium (Protonix Ec Tab) 40 mg PO ACB COUNTS INCLUDE 234 BEDS AT THE [facility] Last Admin: 07/11/18 09:49 Dose: Not Given Polyethylene Glycol (Miralax) 17 gm PO DAILY COUNTS INCLUDE 234 BEDS AT THE [facility] Last Admin: 07/12/18 10:26 Dose: 17 gm Quetiapine Fumarate (Seroquel) 12.5 mg PO HS COUNTS INCLUDE 234 BEDS AT THE [facility]; Protocol Last Admin: 07/11/18 21:36 Dose: 12.5 mg Ropinirole HCl (Requip) 0.25 mg PO HS PRN PRN Reason: Restlessness Last Admin: 07/10/18 23:40 Dose: 0.25 mg - Labs Labs: 07/12/18 05:40 07/12/18 05:40 - Constitutional Appears: Non-toxic, Comfortable, No acute distress - Head Exam Head Exam: ATRAUMATIC, NORMOCEPHALIC - Eye Exam Eye Exam: EOMI, Normal appearance, PERRL - Respiratory Exam Respiratory Exam: Clear to Ausculation Bilateral, NORMAL BREATHING PATTERN - Cardiovascular Exam Cardiovascular Exam: REGULAR RHYTHM, RRR, +S1, +S2. absent: Murmur - GI/Abdominal Exam GI & Abdominal Exam: Soft. absent: Tenderness - Extremities Exam Extremities Exam: Normal Capillary Refill, Trace edema - Back Exam Back Exam: NORMAL INSPECTION - Neurological Exam Neurological Exam: Alert, Awake, CN II-XII Intact - Psychiatric Exam Psychiatric exam: Normal Affect, Normal Mood - Skin Skin Exam: Dry, Intact, Normal Color, Warm Assessment and Plan (1) Staphylococcus aureus bacteremia with sepsis Assessment & Plan: Afebrile; Without leukocytosis 07/04 BCX - 2/2 Positive Gram Positive Cocci 07/08 BCX - 2/2 Negative to date IV Daptomycin 07/05- Cefazolin 2gm started 07/09 per ID Will need 4-6 weeks of antibiotic therapy as per ID ID Recommending PURVI to r/o infectious vegetation - PURVI scheduled for saturday - Dr. Millan, Cardiology ID Following, appreciate reccs Acetaminophen 650 Q6 PRN Status: Acute (2) Fall Assessment & Plan: Most likely 2/2 gait instability/ weakness in setting of active infection/sepsis Xray of Right hip, BL knees negative for fracture PT Eval - Reccs DC to [facility] Acute Rehab Status: Acute (3) Chronic pain due to malignant neoplastic disease Assessment & Plan: Given Toradol overnight Continue Oxycodone 20 Q12 PRN Continue Neuron 600 TID Status: Chronic (4) Depression Assessment & Plan: C/w Cymbalta to 20 BID C/w 250 Depakote daily C/w 12.5 Seroqeul HS C/w 0.25 Ropinirole HS PRN Psych following, appreciate reccs Status: Chronic (5) CAD (coronary artery disease) Assessment & Plan: Previously on Metoprolol 50BID, C/w ASA 81 QD C/w Lisnopril 2.5 Daily Status: Chronic (6) Stage IV breast cancer in female Assessment & Plan: Patient reports she receives tx at [facility] Palliative Care: Patient resistant for advance care planning; Status: Chronic - Assessment and Plan (Free Text) Assessment: 62F w/ PMH of HTN, HLD, Stage IV Breast CA w/ bony metastasis, MSSA Bacteremia, CAD, OA, Depression presenting to [facility] on 07/04 s/p fall. Plan as above; GI/DVT Protonix 40 Heparin 5000 Q12 Dispo: PT reccs MARYJANE; Will DC to [facility] once PURVI complete and no further inpatient management required Patient was seen, examined, and discussed w/ attending Dr. Summer Shaffer DO PGY1 - Internal Medicine Tool Drawing Checker Plan: GI/DVT Protonix 40 Heparin 5000 Q12 Dispo: PT reccs MARYJANE; Will DC to [facility] once PURVI complete and no further inpatient management required Patient was seen, examined, and discussed w/ attending Dr. Summer Shaffer DO PGY1 - Internal Medicine Tool Drawing Checker <Summer Shaffer R - Last Filed: 07/12/18 18:37> Objective - Vital Signs/Intake and Output Vital Signs (last 24 hours): Temp Pulse Resp BP Pulse Ox 98.3 F 73 18 126/76 97 07/12/18 14:00 07/12/18 14:00 07/12/18 14:00 07/12/18 14:00 07/12/18 14:00 - Medications Medications: Current Medications Acetaminophen (Tylenol 325mg Tab) 650 mg PO Q6H PRN PRN Reason: Fever >100.4 F Last Admin: 07/07/18 06:11 Dose: 650 mg Aspirin (Ecotrin) 81 mg PO DAILY COUNTS INCLUDE 234 BEDS AT [facility] Last Admin: 07/12/18 10:26 Dose: 81 mg Calcium Carbonate (Caltrate) 600 mg PO DAILY COUNTS INCLUDE 234 BEDS AT [facility] Last Admin: 07/12/18 10:26 Dose: 600 mg Cholecalciferol (Vitamin D) 1,000 intlu PO DAILY COUNTS INCLUDE 234 BEDS AT [facility] Last Admin: 07/12/18 10:26 Dose: 1,000 intlu Divalproex Sodium (Depakote Dr (*Bid*)) 250 mg PO AMHS COUNTS INCLUDE 234 BEDS AT THE [facility]; Protocol Last Admin: 07/12/18 10:26 Dose: 250 mg Duloxetine HCl (Cymbalta) 20 mg PO BID COUNTS INCLUDE 234 BEDS AT THE [facility] Last Admin: 07/12/18 17:56 Dose: 20 mg Gabapentin (Neurontin) 600 mg PO TID COUNTS INCLUDE 234 BEDS AT THE [facility]; Protocol Last Admin: 07/12/18 17:57 Dose: 600 mg Heparin Sodium (Porcine) (Heparin) 5,000 units SC Q12 COUNTS INCLUDE 234 BEDS AT THE [facility]; Protocol Last Admin: 07/12/18 10:27 Dose: 5,000 units Cefazolin Sodium/Dextrose (Ancef Iv 2 Gm Duplex) 2 gm in 50 mls @ 50 mls/hr IVPB Q8 COUNTS INCLUDE 234 BEDS AT THE [facility]; Protocol Last Admin: 07/12/18 13:49 Dose: 50 mls/hr Lisinopril (Zestril) 2.5 mg PO DAILY COUNTS INCLUDE 234 BEDS AT THE [facility] Last Admin: 07/12/18 10:26 Dose: 2.5 mg Metoprolol Tartrate (Lopressor) 50 mg PO BID COUNTS INCLUDE 234 BEDS AT THE [facility] Last Admin: 07/12/18 17:56 Dose: 50 mg Oxycodone HCl (Oxycodone Immediate Release Tab) 20 mg PO Q12 PRN PRN Reason: Pain, severe (8-10) Last Admin: 07/12/18 18:03 Dose: 20 mg Pantoprazole Sodium (Protonix Ec Tab) 40 mg PO ACB COUNTS INCLUDE 234 BEDS AT THE [facility] Last Admin: 07/11/18 09:49 Dose: Not Given Polyethylene Glycol (Miralax) 17 gm PO DAILY OLGA Last Admin: 07/12/18 10:26 Dose: 17 gm Quetiapine Fumarate (Seroquel) 12.5 mg PO HS OLGA; Protocol Last Admin: 07/11/18 21:36 Dose: 12.5 mg Ropinirole HCl (Requip) 0.25 mg PO HS PRN PRN Reason: Restlessness Last Admin: 07/10/18 23:40 Dose: 0.25 mg - Labs Labs: 07/12/18 05:40 07/12/18 05:40 Attending/Attestation - Attestation I have personally seen and examined this patient.: Yes I have fully participated in the care of the patient.: Yes I have reviewed all pertinent clinical information, including history, physical exam and plan: Yes Notes (Text): Patient seen and examined by me with resident at approximately 9:45AM on 07/12/18. Case including HPI, physical exam, and assessment and plan discussed with resident. Agree with above with following additions/corrections. Patient is a 62-year-old female past medical history significant for hypertension, hyperlipidemia, stage IV breast cancer with metastases to the bone, MSSA bacteremia, coronary artery disease, and osteoarthritis on chronic pain medications that presented to the emergency room for a fall with right hip pain. Patient much more awake and alert today. Ate all of her breakfast. Patient states she is a little concerned about PURVI on Saturday. Patient denies chest pain or palpitations. No nausea, vomiting, or abdominal pain. No headaches or dizziness. No dysuria. Patient afebrile. Patient is having bowel movements. Physical exam: General: Awake and alert lying in bed in no acute distress. HEENT: Normocephalic, atraumatic. Extraocular muscles intact, pupils equal and reactive, no scleral icterus. Oropharynx is pink and moist. No pharyngeal erythema or exudate appreciated. Neck is supple. Cardiovascular: Normal rhythm. Normal S1 and S2. No murmurs, rubs, or gallops appreciated Pulmonary: Normal respiratory effort. No rhonchi, rales, or wheezing appreciated. Gastrointestinal: Soft, nondistended. Nontender. Positive bowel sounds all 4 quadrants. No guarding. Musculoskeletal: Moves all extremities. No calf tenderness. No edema. Central nervous system: AAOx3. Dermatologic: Skin warm and dry. Assessment and plan: Patient is a 62-year-old female past medical history significant for hypertension, hyperlipidemia, stage IV breast cancer with metastases to the bone, MSSA bacteremia, coronary artery disease, and osteoarthritis on chronic pain medications that presented to the emergency room for a fall with right hip pain. 1. Sepsis secondary to MSSA Bacteremia. Blood cultures positive for staph aureus. ID following, recommendations appreciated. Contiunue Ancef. Leukocytosis resolved. Afebrile. PICC placed. Patient for PURVI on 07/14/18 with cardiology 2. Hip and knee pain s/p fall. Gait instablity. Pending MARYJANE after PURVI completed. Continue with pain managment. Continue physical therapy. Right hip and pelvic xray per radiologist shows no acute fracture. Right knee xray per radiologist shows no evidence of fracture. Left knee xray per radiologist shows normal radiographs of left knee. Head CT per radiologist showed suboptimal examination due to patient positioning, no acute intracranial abnormality. 3. Essential Hypertension. Continue lisinopril and lopressor 4. Chronic pain. Neuropathy. Continue home oxycodone as needed. Continue home Neurontin. 5. Chronic anemia. H&H stable. No signs of bleeding. Continue to monitor. 6. Metastatic breast cancer. Patient gets infusions at [facility], states she has not been this year. Patient to continue follow up with her doctor. 7. Psychiatric disorder. Continue Seroquel, Cymbalta, and Depakote. Psychiatry recommendations appreciated. 8. Restless leg syndrome. Continue requip prn 9. GI/DVT prophylaxis. Protonix/heparin. Case discussed in detail with the patient regarding current diagnosis and treatment plan. All questions answered.
--- NOTE | 2018-07-12 18:15 | CON ---
DATE: 07/12/2018 REQUESTING PHYSICIAN: Dr. Shaffer. REASON FOR CONSULTATION: Persistent bacteremia. HISTORY OF PRESENT ILLNESS: This is a 62-year-old woman with stage IV breast cancer and bony metastasis, admitted with recent fall. She has been found to have methicillin-sensitive Staphylococcal aureus bacteremia and she has been referred for evaluation for possible endocarditis. She is seen lying in bed on 5R. She is comfortable at the present time. She is currently afebrile. A transthoracic echocardiogram had revealed no clear evidence of vegetation. Left ventricular function was normal. [id number] mitral regurgitation and mild tricuspid regurgitation were seen. PAST MEDICAL HISTORY: Notable for problems mentioned above. She has been undergoing treatment for her breast cancer at [facility]. She reportedly has a history of hypertension, arthritis, hyperlipidemia and prior coronary artery disease. She has had no recent chest pain. She also has a history of anxiety and depression disorder. PAST SURGICAL HISTORY: She has had prior hip and ankle surgery. CURRENT MEDICATIONS: Include cefazolin, Cymbalta, Depakote, Ecotrin, subcutaneous heparin, metoprolol 50 mg b.i.d., MiraLax, Neurontin, oxycodone, Protonix, Requip, Seroquel. ALLERGIES: NONE. SOCIAL HISTORY: She is a former smoker. She denies alcohol use. FAMILY HISTORY: Mother from complications of cerebrovascular accident. Father from cancer. No family history of premature heart disease. REVIEW OF SYSTEMS: A 10-point review of systems is notable mainly for the problems mentioned above. PHYSICAL EXAMINATION: GENERAL: She is a chronically ill-appearing middle-aged woman. VITAL SIGNS: Blood pressure is 124/70 with a pulse of 80, respirations are 14. She is currently afebrile. HEENT: Normocephalic, atraumatic. NECK: Supple. No JVD noted. CHEST: Few scattered rhonchi heard. HEART: PMI in normal position with soft systolic murmur at the lower left sternal border and apex. ABDOMEN: Soft and nontender with normoactive bowel sounds. EXTREMITIES: Revealed no clubbing, cyanosis, or edema. SKIN: Warm and dry. PSYCHIATRIC: Appears somewhat anxious, but otherwise normal mood and affect. NEUROLOGIC: Alert and oriented x3. No gross motor or sensory deficits notable. DIAGNOSTIC DATA: Potassium is 4.4, BUN and creatinine is 24 and 0.6. White count 9.5, hemoglobin and hematocrit are 8.8 and 29.3 with a platelet count of 358,000. Initial blood cultures were positive for methicillin-sensitive Staphylococcal aureus. Repeat blood cultures are negative after four days. Chest x-ray reveals normal cardiac silhouette with mildly increased interstitial markings. Electrocardiogram is not found on the chart. IMPRESSION: 1. Methicillin-sensitive Staphylococcus bacteremia with some underlying valvular heart disease of mitral and tricuspid regurgitation. 2. Metastatic breast cancer. 3. Anemia of chronic illness. 4. Rest of problems as noted. RECOMMENDATIONS: Arrangements will be made for transesophageal echocardiogram to exclude bacterial endocarditis. Should a vegetation be seen, a prolonged course of antibiotics will be necessary. If the PURVI shows no evidence of vegetation, a shorter course can be planned. The procedure is scheduled for Saturday morning. Thank you for this consultation. Hardy Millan MD MTDAnu
--- NOTE | 2018-07-12 22:17 | PN ---
DATE: 07/12/2018 SUBJECTIVE: The patient is seen earlier today in room 572, bed two. No fevers, no chills. The patient is awake. PHYSICAL EXAMINATION: VITAL SIGNS: Temperature is 98, blood pressure is 126/70, respiratory rate of 18. HEENT: Unremarkable. NECK: Supple. LUNGS: Decreased breath sounds. HEART: Normal S1 and S2. ABDOMEN: Soft. LABORATORY EXAMINATION: Reveals the patient's white count is 9.4, sed rate is 114, hemoglobin of 8, platelets of 358. Chemistries reveal a BUN of 24, creatinine of 0.6. Urinalysis is noted. Serology is negative. Microbiology reveals the repeat blood cultures are negative from 07/08/2018. The initial blood cultures are positive for oxacillin-sensitive Staph, and review of orders reveals the patient to be on cefazolin. ASSESSMENT AND PLAN: A 62-year-old female with fever and tachycardia, admitted with sepsis and sensitive Staphylococcus aureus bacteremia, questionable deep-seated infection, unclear of the source. The patient has had three pansensitive episodes of Staphylococcus aureus bacteremia last year. Would recommend continuing the Ancef, today is day #5 of 28 to 42 days, with weekly CBC, SMA-18, sedimentation rate, C-reactive protein and repeating the echocardiogram and close observation. Jamel Valencia MD
[2018-07-13] MEDS: ceFAZolin IV 2 gm in Dextrose 2 GM/50 ML BAG IVPB SCH ×3 (05:01→22:09)
[2018-07-13] MEDS: Pantoprazole 40 mg EC Tab PO SCH (08:24)
[2018-07-13] MEDS: oxyCODONE 20 mg Immediate Release Tab PO PRN ×2 (09:30→18:03)
[2018-07-13] MEDS: Divalproex 250 mg DR (BID formulation) PO SCH ×2 (09:30→22:09)
[2018-07-13] MEDS: POLYETHYLENE GLYCOL 3350 17 GM/Dose PACKET PO SCH (09:31)
[2018-07-13 09:52] LABS: BASO # 0.06 K/mm3 (0.0-2.0); BASO % 0.6 % (0.0-3.0); EOS # 0.7 (0.0-0.7); EOS % 7.4 % (1.5-5.0); HEMOGLOBIN 9.2 g/dL (12.0-16.0); LYMPH # 1.8 (1.2-3.4); LYMPH % 18.8 % (22.0-35.0); MEAN CELL VOLUME 81.1 fl (80.0-105.0); MEAN CORPUSCULAR HEMOGLOBIN 24.5 pg (25.0-35.0); MEAN CORPUSCULAR HGB CONC 30.3 g/dl (31.0-37.0); MEAN PLATELET VOLUME 9.2 fl (7.0-11.0); MONO # 1.3 (0.1-0.6); RBC 3.75 10^6/uL (3.5-6.1); RED CELL DISTRIBUTION WIDTH 16.1 % (11.5-14.5); WHITE BLOOD COUNT 9.5 10^3/uL (4.5-11.0)
[2018-07-13 10:11] LABS: ALB/GLOB RATIO 0.8 (1.1-1.8); ALBUMIN 3.5 g/dL (3.0-4.8); ALT/SGPT 18 U/L (7-56); AST/SGOT 102 U/L (14-36); BLOOD UREA NITROGEN 21 mg/dL (7-21); CALCIUM 10.1 mg/dL (8.4-10.5); GFR NON-AFRICAN AMERICAN > 60
[2018-07-13] MEDS: Cholecalciferol 1,000 INTLU TAB PO SCH (12:24)
--- NOTE | 2018-07-13 14:40 | PN ---
DATE: 07/13/2018 SUBJECTIVE: The patient is seen in bed, in no acute distress, nontoxic. She is comfortable on exam. PHYSICAL EXAMINATION: VITAL SIGNS: Temperature is 98, blood pressure is 140/70, respiratory rate of 18. HEENT: Unremarkable. NECK: Supple. LUNGS: Decreased breath sounds. HEART: Normal S1 and S2. ABDOMEN: Soft and nontender. LABORATORY EXAMINATION: White count of 9.5, hemoglobin of 9, BUN of 21, creatinine of 0.6. Urinalysis is noted. Serology is negative. Microbiology reveals blood cultures are positive on admission, the repeat cultures are negative. Review of orders reveals the patient to be on cefazolin. ASSESSMENT AND PLAN: She is a 62-year-old female, admitted with sepsis with a sensitive Staphylococcus aureus bacteremia, source is unclear, and today is day# 6 of 28 to 42 days of antibiotics with a weekly CBC, SMA-18, sedimentation rate, C-reactive protein and repeat echocardiogram. Jamel Valencia MD
--- NOTE | 2018-07-13 18:28 | CP.PCM.PN ---
<Nima Shaffer - Last Filed: 07/13/18 19:31> Subjective - Date & Time of Evaluation Date of Evaluation: 07/13/18 Time of Evaluation: 09:00 - Subjective Subjective: Nima Shaffer DO PGY1 - Internal Medicine [employer] - Hospitalist Progress Note Patient was seen and examined this morning at bedside; Continues to complain of RLE pain Denies fevers, chills, chest pain, sob, abd pain, n/v/d/c, Objective - Vital Signs/Intake and Output Vital Signs (last 24 hours): Temp Pulse Resp BP Pulse Ox 98.6 F 71 18 131/70 95 07/13/18 14:00 07/13/18 14:00 07/13/18 14:00 07/13/18 14:00 07/13/18 14:00 Intake and Output: 07/13/18 07/13/18 06:59 18:59 Intake Total 240 640 Balance 240 640 - Medications Medications: Current Medications Acetaminophen (Tylenol 325mg Tab) 650 mg PO Q6H PRN PRN Reason: Fever >100.4 F Last Admin: 07/12/18 23:17 Dose: 650 mg Aspirin (Ecotrin) 81 mg PO DAILY [facility] Last Admin: 07/13/18 09:30 Dose: 81 mg Calcium Carbonate (Caltrate) 600 mg PO DAILY [facility] Last Admin: 07/13/18 09:30 Dose: 600 mg Cholecalciferol (Vitamin D) 1,000 intlu PO DAILY [facility] Last Admin: 07/13/18 12:24 Dose: 1,000 intlu Divalproex Sodium (Depakote Dr (*Bid*)) 250 mg PO AMHS [facility]; Protocol Last Admin: 07/13/18 09:30 Dose: 250 mg Duloxetine HCl (Cymbalta) 20 mg PO BID [facility] Last Admin: 07/13/18 18:05 Dose: 20 mg Gabapentin (Neurontin) 600 mg PO TID [facility]; Protocol Last Admin: 07/13/18 18:03 Dose: 600 mg Cefazolin Sodium/Dextrose (Ancef Iv 2 Gm Duplex) 2 gm in 50 mls @ 50 mls/hr IVPB Q8 [facility]; Protocol Last Admin: 07/13/18 15:52 Dose: 50 mls/hr Lisinopril (Zestril) 2.5 mg PO DAILY [facility] Last Admin: 07/13/18 09:31 Dose: 2.5 mg Metoprolol Tartrate (Lopressor) 50 mg PO BID [facility] Last Admin: 07/13/18 09:30 Dose: 50 mg Oxycodone HCl (Oxycodone Immediate Release Tab) 20 mg PO Q12 PRN PRN Reason: Pain, severe (8-10) Last Admin: 07/13/18 18:03 Dose: 20 mg Pantoprazole Sodium (Protonix Ec Tab) 40 mg PO ACB [facility] Last Admin: 07/13/18 08:24 Dose: 40 mg Polyethylene Glycol (Miralax) 17 gm PO DAILY [facility] Last Admin: 07/13/18 09:31 Dose: 17 gm Quetiapine Fumarate (Seroquel) 12.5 mg PO HS [facility]; Protocol Last Admin: 07/12/18 23:00 Dose: 12.5 mg Ropinirole HCl (Requip) 0.25 mg PO HS PRN PRN Reason: Restlessness Last Admin: 07/12/18 23:17 Dose: 0.25 mg - Labs Labs: 07/13/18 09:00 07/13/18 09:00 - Constitutional Appears: Non-toxic, Comfortable, No acute distress - Head Exam Head Exam: ATRAUMATIC, NORMOCEPHALIC - Eye Exam Eye Exam: EOMI, Normal appearance, PERRL - Respiratory Exam Respiratory Exam: Clear to Ausculation Bilateral, NORMAL BREATHING PATTERN - Cardiovascular Exam Cardiovascular Exam: REGULAR RHYTHM, RRR, +S1, +S2. absent: Murmur - GI/Abdominal Exam GI & Abdominal Exam: Soft. absent: Tenderness - Extremities Exam Extremities Exam: Normal Capillary Refill, Trace edema - Back Exam Back Exam: NORMAL INSPECTION - Neurological Exam Neurological Exam: Alert, Awake, CN II-XII Intact - Psychiatric Exam Psychiatric exam: Normal Affect, Normal Mood - Skin Skin Exam: Dry, Intact, Normal Color, Warm Assessment and Plan (1) Staphylococcus aureus bacteremia with sepsis Assessment & Plan: Remains Afebrile; Without leukocytosis 07/04 BCX - 2/2 Positive Gram Positive Cocci 07/08 BCX - 2/2 Negative IV Daptomycin 07/05-06/18 Cefazolin 2gm started 07/09 per ID Will need 4-6 weeks of antibiotic therapy as per ID ID Recommending PURVI to r/o infectious vegetation - PURVI scheduled for saturday - Dr. Millan, Cardiology Will attempt to get CT scan of the R hip; However patient refusing ID Following, appreciate reccs Acetaminophen 650 Q6 PRN Status: Acute (2) Fall Assessment & Plan: Most likely 2/2 gait instability/ weakness in setting of active infection/sepsis Xray of Right hip, BL knees negative for fracture PT Eval - Reccs DC to SUB Acute Rehab Status: Acute (3) Chronic pain due to malignant neoplastic disease Assessment & Plan: She refuses and asks for more oxycodone and methadone instead of going for imaging; Says she follows up w/ pain management however she does not provide name of pain management when asked further Prior to entering the room patient is seen resting comfortably in bed Continue Oxycodone 20 Q12 PRN Continue Neuron 600 TID Status: Chronic (4) Depression Assessment & Plan: C/w Cymbalta to 20 BID C/w 250 Depakote daily C/w 12.5 Seroqeul HS C/w 0.25 Ropinirole HS PRN Psych following, appreciate reccs Status: Chronic (5) CAD (coronary artery disease) Assessment & Plan: Previously on Metoprolol 50BID, C/w ASA 81 QD C/w Lisnopril 2.5 Daily Status: Chronic (6) Stage IV breast cancer in female Assessment & Plan: Patient reports she receives tx at [facility] Palliative Care: Patient resistant for advance care planning; Status: Chronic - Assessment and Plan (Free Text) Assessment: 62F w/ PMH of HTN, HLD, Stage IV Breast CA w/ bony metastasis, MSSA Bacteremia, CAD, OA, Depression [place] [facility] [place]/p [place]. Source of MSSA Bacteremia uncertain at this time; pending PURVI; Pending CT R Hip GI/DVT Protonix 40 Heparin 5000 Q12 Dispo: PT reccs MARYJANE; Will DC to [facility] once PURVI complete and no further inpatient management required Patient was seen, examined, and discussed w/ attending Dr. Summer Shaffer DO PGY1 - Internal Medicine [employer] <Summer Shaffer R - Last Filed: 07/14/18 12:03> Objective - Vital Signs/Intake and Output Vital Signs (last 24 hours): Temp Pulse Resp BP Pulse Ox 98.8 F 73 18 119/77 98 07/14/18 06:00 07/14/18 06:00 07/14/18 06:00 07/14/18 06:00 07/14/18 06:00 Intake and Output: 07/14/18 07/14/18 06:59 18:59 Intake Total 580 Output Total 1540 Balance -960 - Medications Medications: Current Medications Acetaminophen (Tylenol 325mg Tab) 650 mg PO Q6H PRN PRN Reason: Fever >100.4 F Last Admin: 07/12/18 23:17 Dose: 650 mg Aspirin (Ecotrin) 81 mg PO DAILY [facility] Last Admin: 07/14/18 11:27 Dose: Not Given Calcium Carbonate (Caltrate) 600 mg PO DAILY [facility] Last Admin: 07/14/18 11:27 Dose: Not Given Cholecalciferol (Vitamin D) 1,000 intlu PO DAILY [facility] Last Admin: 07/14/18 11:30 Dose: Not Given Divalproex Sodium (Depakote Dr (*Bid*)) 250 mg PO AMHS [facility]; Protocol Last Admin: 07/14/18 11:27 Dose: Not Given Duloxetine HCl (Cymbalta) 20 mg PO BID [facility] Last Admin: 07/14/18 11:27 Dose: Not Given Gabapentin (Neurontin) 600 mg PO TID [facility]; Protocol Last Admin: 07/14/18 11:29 Dose: Not Given Cefazolin Sodium/Dextrose (Ancef Iv 2 Gm Duplex) 2 gm in 50 mls @ 50 mls/hr IVPB Q8 [facility]; Protocol Last Admin: 07/14/18 06:06 Dose: 50 mls/hr Lisinopril (Zestril) 2.5 mg PO DAILY [facility] Last Admin: 07/14/18 11:30 Dose: Not Given Metoprolol Tartrate (Lopressor) 50 mg PO BID [facility] Last Admin: 07/14/18 11:28 Dose: Not Given Oxycodone HCl (Oxycodone Immediate Release Tab) 20 mg PO Q12 PRN PRN Reason: Pain, severe (8-10) Last Admin: 07/13/18 18:03 Dose: 20 mg Pantoprazole Sodium (Protonix Ec Tab) 40 mg PO ACB [facility] Last Admin: 07/14/18 11:30 Dose: Not Given Polyethylene Glycol (Miralax) 17 gm PO DAILY [facility] Last Admin: 07/14/18 11:28 Dose: Not Given Quetiapine Fumarate (Seroquel) 12.5 mg PO HS [facility]; Protocol Last Admin: 07/13/18 22:09 Dose: 12.5 mg Ropinirole HCl (Requip) 0.25 mg PO HS PRN PRN Reason: Restlessness Last Admin: 07/12/18 23:17 Dose: 0.25 mg - Labs Labs: 07/14/18 07:00 07/14/18 07:00 Attending/Attestation - Attestation I have personally seen and examined this patient.: Yes I have fully participated in the care of the patient.: Yes I have reviewed all pertinent clinical information, including history, physical exam and plan: Yes Notes (Text): Patient seen and examined by me with resident at approximately 9:25AM on 07/13/18. Case including HPI, physical exam, and assessment and plan discussed with resident. Agree with above with following additions/corrections. Patient is a 62-year-old female past medical history significant for hypertension, hyperlipidemia, stage IV breast cancer with metastases to the bone, MSSA bacteremia, coronary artery disease, and osteoarthritis on chronic pain medications that presented to the emergency room for a fall with right hip pain. Patient states she is not feeling that great today. States she is having pain in her right hip. Patient denies chest pain or palpitations. No shortness of breath. No nausea, vomiting, or abdominal pain. No headaches or dizziness. No dysuria. Patient afebrile. Patient is having bowel movements. Physical exam: General: Awake and alert lying in bed in no acute distress. HEENT: Normocephalic, atraumatic. Extraocular muscles intact, pupils equal and reactive, no scleral icterus. Oropharynx is pink and moist. No pharyngeal erythema or exudate appreciated. Neck is supple. Cardiovascular: Normal rhythm. Normal S1 and S2. No murmurs, rubs, or gallops appreciated Pulmonary: Normal respiratory effort. No rhonchi, rales, or wheezing appreciated. Gastrointestinal: Soft, nondistended. Nontender. Positive bowel sounds all 4 quadrants. No guarding. Musculoskeletal: Moves all extremities. No calf tenderness. No edema. Central nervous system: AAOx3. Dermatologic: Skin warm and dry. Assessment and plan: Patient is a 62-year-old female past medical history significant for hypertension, hyperlipidemia, stage IV breast cancer with metastases to the bone, MSSA bacteremia, coronary artery disease, and osteoarthritis on chronic pain medications that presented to the emergency room for a fall with right hip pain. 1. Sepsis secondary to MSSA Bacteremia. Blood cultures positive for staph aureus. ID following, recommendations appreciated. Contiunue Ancef. Leukocytosis resolved. Afebrile. PICC placed. Patient for PURVI on 07/14/18 with cardiology. 2. Hip and knee pain s/p fall. Gait instablity. Pending MARYJANE after PURVI completed. Continue with pain managment. Continue physical therapy. Will get CT of right hip. Right hip and pelvic xray per radiologist shows no acute fracture. Right knee xray per radiologist shows no evidence of fracture. Left knee xray per radiologist shows normal radiographs of left knee. Head CT per radiologist showed suboptimal examination due to patient positioning, no acute intracranial abnormality. 3. Essential Hypertension. Continue lisinopril and lopressor 4. Chronic pain. Neuropathy. Continue home oxycodone as needed. Continue home Neurontin. 5. Chronic anemia. H&H stable. No signs of bleeding. Continue to monitor. 6. Metastatic breast cancer. Patient gets infusions at [facility], states she has not been this year. Patient to continue follow up with her doctor. 7. Psychiatric disorder. Continue Seroquel, Cymbalta, and Depakote. Psychiatry recommendations appreciated. 8. Restless leg syndrome. Continue requip prn 9. GI/DVT prophylaxis. Protonix/heparin. Case discussed in detail with the patient regarding current diagnosis and treatment plan. All questions answered.
--- NOTE | 2018-07-13 21:52 | CON ---
DATE: 07/13/2018 HISTORY OF PRESENT ILLNESS: The patient is a 62-year-old female with a history of depression and anxiety, who is being seen by Psychiatry on the medical floor due to altered mental status and aforementioned symptoms. The patient has been compliant with prescribed Seroquel, Cymbalta, and Depakote and Cymbalta was increased by this provider few days ago due to depression. I met with the patient at the bedside this morning and reviewed nursing notes. The patient appears to be calmer in the unit, but appears to be in less pain and less labile. The patient is still depressed; however, she is more worried about her medical issues and her " secondary to everything going on." She does not appear to be in any distress. She is not hallucinating. She is oriented x3. Denies any side effects from her medications. Her insight and judgement are improving. Thought process is still that she does exhibit much better focus than my initial interview with her last week. Labs and vitals were reviewed. IMPRESSION: Improving delirium. Depression and anxiety likely adjustment disorder with anxiety as a component. RECOMMENDATIONS: We will continue with current medications, there is no acute indication to change them at this time. Psychiatry will sign off at this time as there are no new psychiatric issues. Please reconsult p.r.n. if her presentation changes. Sandra Valderrama MD
[2018-07-14] MEDS: ceFAZolin IV 2 gm in Dextrose 2 GM/50 ML BAG IVPB SCH ×2 (06:06→14:01)
[2018-07-14 07:30] LABS: BASO # 0.06 K/mm3 (0.0-2.0); BASO % 0.6 % (0.0-3.0); EOS # 0.7 (0.0-0.7); EOS % 6.3 % (1.5-5.0); HEMOGLOBIN 8.8 g/dL (12.0-16.0); LYMPH # 2.3 (1.2-3.4); LYMPH % 22.2 % (22.0-35.0); MEAN CELL VOLUME 81.9 fl (80.0-105.0); MEAN CORPUSCULAR HEMOGLOBIN 24.1 pg (25.0-35.0); MEAN CORPUSCULAR HGB CONC 29.4 g/dl (31.0-37.0); MONO # 1.3 (0.1-0.6); MONO % 12.1 % (1.0-6.0); RBC 3.65 10^6/uL (3.5-6.1); RED CELL DISTRIBUTION WIDTH 16.2 % (11.5-14.5); WHITE BLOOD COUNT 10.4 10^3/uL (4.5-11.0)
[2018-07-14 07:48] LABS: ALB/GLOB RATIO 0.7 (1.1-1.8); ALBUMIN 3.2 g/dL (3.0-4.8); ALT/SGPT 17 U/L (7-56); AST/SGOT 91 U/L (14-36); BLOOD UREA NITROGEN 21 mg/dL (7-21); CALCIUM 9.8 mg/dL (8.4-10.5); GFR NON-AFRICAN AMERICAN > 60
[2018-07-14] MEDS ORDERED: Midazolam 2 MG/2 ML VIAL ONE (08:42)
[2018-07-14] MEDS ORDERED: Midazolam 2 MG/2 ML VIAL IV ONE ×2 (08:42→08:50)
[2018-07-14] MEDS ORDERED: Flumazenil 0.1 mg/ml Inj (5ml) IVP ONE (08:42)
[2018-07-14] MEDS ORDERED: Naloxone 0.4 mg/ml Inj (Adult) ONE (08:43)
--- NOTE | 2018-07-14 11:13 | CARD ---
APPROVED REPORT Date of service: 07/14/2018 EXAM: Two-dimensional and M-mode echocardiogram with Doppler and color Doppler. Other Information Quality : AverageRhythm : INDICATION Bacteremia LEFT VENTRICLE The left ventricle is normal size. There is normal left ventricular wall thickness. The left ventricular function is normal. The left ventricular ejection fraction is within the normal range. There is normal LV segmental wall motion. RIGHT VENTRICLE The right ventricle is normal size. The right ventricular systolic function is normal. ATRIA The left atrium size is normal. The right atrium size is normal. The interatrial septum is intact with no evidence for an atrial septal defect. AORTIC VALVE The aortic valve is normal in structure. No aortic regurgitation is present. There is no aortic valvular stenosis. There is no aortic valvular vegetation. MITRAL VALVE The mitral valve is normal in structure. There is no mitral valve regurgitation noted. No vegetation is seen on the mitral valve. TRICUSPID VALVE The tricuspid valve is normal in structure. There is no tricuspid valve regurgitation noted. There is no vegetation on the tricuspid valve. PULMONIC VALVE The pulmonary valve is normal in structure. GREAT VESSELS The aortic root is normal in size. The ascending aorta is normal in size. No plaque noted in ascending or descending thoracic aorta. The IVC is normal in size and collapses >50% with inspiration. PERICARDIAL EFFUSION There is no pleural effusion. There is no pericardial effusion. <Conclusion> No PURVI evidence of endocarditis. Normal study.
[2018-07-14] MEDS: Divalproex 250 mg DR (BID formulation) PO SCH (11:27)
[2018-07-14] MEDS: POLYETHYLENE GLYCOL 3350 17 GM/Dose PACKET PO SCH (11:28)
[2018-07-14] MEDS: Pantoprazole 40 mg EC Tab PO SCH (11:30)
[2018-07-14] MEDS: Cholecalciferol 1,000 INTLU TAB PO SCH (11:30)
--- NOTE | 2018-07-14 11:49 | CP.PCM.DIS ---
Provider - Provider Date of Admission: 07/05/18 09:12 Attending physician: Fabiola Anne MD Consults: 07/04/18 15:26 Physician Consult Routine Comment: Consulting Provider: Sandra Valderrama Consulting Physician: Sandra Valderrama Reason for Consult: anxiety/depression 07/05/18 09:10 Infectious Disease Consult Routine Comment: Consulting Provider: Jamel Valencia Consulting Physician: Jamel Valencia Reason for Consult: fever, h/o bacteremia 07/08/18 09:24 Palliative Care Consult Routine Comment: Consulting Provider: Joanne Matamoros Physician Instructions: Reason For Exam: Breast Ca with met to the bones 07/10/18 12:44 Cardiology Consult Routine Comment: Consulting Provider: Hardy Millan Consulting Physician: Hardy Millan Reason for Consult: PURVI - persistent bacteremia Time Spent in preparation of Discharge (in minutes): 45 Diagnosis - Discharge Diagnosis (1) Staphylococcus aureus bacteremia with sepsis Status: Acute (2) Fall Status: Acute (3) Chronic pain due to malignant neoplastic disease Status: Chronic (4) Depression Status: Chronic (5) CAD (coronary artery disease) Status: Chronic (6) Stage IV breast cancer in female Status: Chronic Hospital Course - Lab Results Lab Results: Micro Results 07/08/18 06:30 Blood Blood Culture - Final NO GROWTH AFTER 5 DAYS 07/08/18 06:30 Blood Gram Stain - Final TEST NOT PERFORMED 07/08/18 06:15 Blood Blood Culture - Final NO GROWTH AFTER 5 DAYS 07/08/18 06:15 Blood Gram Stain - Final TEST NOT PERFORMED 07/04/18 16:45 Blood Blood Culture - Final Staphylococcus Aureus 07/04/18 16:45 Blood Gram Stain - Final 07/04/18 16:25 Blood S.aureus & Coag-Neg Staph PNA FISH - Final 07/04/18 16:25 Blood Blood Culture - Final Staphylococcus Aureus 07/04/18 16:25 Blood Gram Stain - Final 07/05/18 12:00 Urine,Catheterized Urine Culture - Final No Growth (<1,000 CFU/ML) 07/04/18 19:37 Naris MRSA Culture (Admit) - Final MRSA NOT DETECTED Most Recent Lab Values WBC 10.4 10^3/uL (4.5-11.0) 07/14/18 07:00 RBC 3.65 10^6/uL (3.5-6.1) 07/14/18 07:00 Hgb 8.8 g/dL (12.0-16.0) L 07/14/18 07:00 Hct 29.9 % (36.0-48.0) L 07/14/18 07:00 MCV 81.9 fl (80.0-105.0) 07/14/18 07:00 MCH 24.1 pg (25.0-35.0) L 07/14/18 07:00 MCHC 29.4 g/dl (31.0-37.0) L 07/14/18 07:00 RDW 16.2 % (11.5-14.5) H 07/14/18 07:00 Plt Count 418 10^3/uL (120.0-450.0) 07/14/18 07:00 MPV 9.0 fl (7.0-11.0) 07/14/18 07:00 Neut % (Auto) 58.8 % (50.0-68.0) 07/14/18 07:00 Lymph % (Auto) 22.2 % (22.0-35.0) 07/14/18 07:00 Coal % (Auto) 12.1 % (1.0-6.0) H 07/14/18 07:00 Eos % (Auto) 6.3 % (1.5-5.0) H 07/14/18 07:00 Baso % (Auto) 0.6 % (0.0-3.0) 07/14/18 07:00 Lymph # (Auto) 2.3 (1.2-3.4) 07/14/18 07:00 Coal # (Auto) 1.3 (0.1-0.6) H 07/14/18 07:00 Eos # (Auto) 0.7 (0.0-0.7) 07/14/18 07:00 Baso # (Auto) 0.06 K/mm3 (0.0-2.0) 07/14/18 07:00 Absolute Neuts (auto) 6.10 (1.4-6.5) 07/14/18 07:00 Neutrophils % (Manual) 64 % (50.0-70.0) 07/09/18 06:45 Lymphocytes % (Manual) 24 % (22.0-35.0) 07/09/18 06:45 Monocytes % (Manual) 9 % (1.0-6.0) H 07/09/18 06:45 Eosinophils % (Manual) 3 % (0.0-3.0) 07/09/18 06:45 Platelet Evaluation Normal (NORMAL) 07/09/18 06:45 Microcytosis (manual) 1+ 07/09/18 06:45 ESR 114 mm/hr (0.0-20.0) H 07/06/18 07:00 Sodium 140 mmol/L (132-148) 07/14/18 07:00 Potassium 4.4 mmol/L (3.6-5.0) 07/14/18 07:00 Chloride 98 mmol/L (98-107) 07/14/18 07:00 Carbon Dioxide 32 mmol/L (21-33) 07/14/18 07:00 Anion Gap 13 (10-20) 07/14/18 07:00 BUN 21 mg/dL (7-21) 07/14/18 07:00 Creatinine 0.7 mg/dl (0.7-1.2) 07/14/18 07:00 Est GFR ( Amer) > 60 07/14/18 07:00 Est GFR (Non-Af Amer) > 60 07/14/18 07:00 Random Glucose 94 mg/dL (70-110) 07/14/18 07:00 Calcium 9.8 mg/dL (8.4-10.5) 07/14/18 07:00 Phosphorus 3.8 mg/dL (2.5-4.5) 07/07/18 07:45 Magnesium 2.2 mg/dL (1.7-2.2) 07/07/18 07:45 Total Bilirubin 0.2 mg/dL (0.2-1.3) 07/14/18 07:00 AST 91 U/L (14-36) H 07/14/18 07:00 ALT 17 U/L (7-56) 07/14/18 07:00 Alkaline Phosphatase 114 U/L (38-126) 07/14/18 07:00 C-Reactive Protein 229.60 mg/L (0.0-9.9) H 07/06/18 07:00 Total Protein 7.6 g/dL (5.8-8.3) 07/14/18 07:00 Albumin 3.2 g/dL (3.0-4.8) 07/14/18 07:00 Globulin 4.5 gm/dL 07/14/18 07:00 Albumin/Globulin Ratio 0.7 (1.1-1.8) L 07/14/18 07:00 Procalcitonin 3.03 NG/ML (0.19-0.49) H 07/05/18 06:30 Urine Color Yellow (YELLOW) 07/04/18 11:27 Urine Appearance Clear (CLEAR) 07/04/18 11:27 Urine pH 8.0 (4.7-8.0) 07/04/18 11:27 Ur Specific [place] 1.015 (1.005-1.035) 07/04/18 11:27 Urine Protein Negative mg/dL (<30 mg/dL) 07/04/18 11:27 Urine Glucose (UA) Negative mg/dL (NEGATIVE) 07/04/18 11:27 Urine Ketones Negative mg/dL (NEGATIVE) 07/04/18 11:27 Urine Blood Trace-intact (NEGATIVE) H 07/04/18 11:27 Urine Nitrate Negative (NEGATIVE) 07/04/18 11:27 Urine Bilirubin Negative (NEGATIVE) 07/04/18 11:27 Urine Urobilinogen 0.2 E.U./dL (<1 E.U./dL) 07/04/18 11:27 Ur Leukocyte Esterase Negative [place]/uL (NEGATIVE) 07/04/18 11:27 Urine RBC 1 - 3 /hpf (0-2) H 07/04/18 11:27 Urine WBC 0 - 2 /hpf (0-6) 07/04/18 11:27 Ur Epithelial Cells 4 - 5 /hpf (0-5) 07/04/18 11:27 Urine Bacteria Few /hpf (NONE) 07/04/18 11:27 Influenza Typ A,B (EIA) Negative for flu a/b (NEGATIVE) 07/05/18 15:00 - Hospital Course Hospital Course: Nima Shaffer DO PGY1 - Internal Medicine [employer] Hospitalist Progress Note 62 F with a past medical history of HTN, HLD, stage 4 breast ca with bony mets, MSSA bacteremia, CAD, and OA presenting to the hospital via EMS after patient contacted her son in law s/p fall this morning. Patient is unaware of how she fell, only that she woke up on the floor. Upon initial presentation the following evaluation was performed: Hip/Pelvis X-Ray 07/04/18 10:22 IMPRESSION: No acute fracture Knee X-Ray 07/04/18 10:22 IMPRESSION: No evidence of fracture Chest X-Ray 07/04/18 11:02 IMPRESSION: No active disease. Knee X-Ray 07/04/18 11:02 IMPRESSION: Normal radiographs of the left knee. Head CT 07/06/18 10:17 IMPRESSION: Suboptimal examination due to patient positioning. No acute intracranial abnormality. During initial assessment patient was found to be septic w/ leukocytosis and fever; Patient was started on daptomycin as she had previously had been on daptomycin for MSSA bacteremia. ID was consulted, and blood cx from 07/04 grew S. Aureus + Coag-Neg Staph. Patient was continued on daptomycin until 07/08 at which time she was switched to Cefazolin. Her most recent blood culture from 07/08 was negative x5 days. PURVI was performed 07/14 to r/o infectious vegetation; PURVI negative for endocarditis/ vegetation. As per ID patient is to complete 4-6 weeks of IV Antibiotics from date of last n egative blood culture (07/08) Patient will be discharged to [facility] to continue IV ABX therapy for remaining duration Given her Hx of Stage IV Breast CA w/ bony mets; palliative care was consulted however Patient was resistant for advance care planning. Morning prior to discharge, patient was seen and evaluated at bedside. No acute events reported overnight Patient reported no fevers, chills, shortness of breath, abd pain, n/v/d/c, urinary discomfort Discharge medications, and discharge plans were reviewed with patient Patient verbalized understanding of discharge plan as written below Patient was seen, evaluated, and discussed w/ attending physician Dr. Anne prior to discharge - Date & Time of H&P Date of H&P: 07/04/18 Time of H&P: 16:23 Discharge Exam - Head Exam Head Exam: ATRAUMATIC, NORMOCEPHALIC - Eye Exam Eye Exam: EOMI, PERRL - Respiratory Exam Respiratory Exam: Clear to PA & Lateral, UNREMARKABLE - Cardiovascular Exam Cardiovascular Exam: REGULAR RHYTHM, RRR. absent: Systolic Murmur - GI/Abdominal Exam GI & Abdominal Exam: Normal Bowel Sounds. absent: Tenderness - Neurological Exam Neurological exam: Alert, CN II-XII Intact, Oriented x3 - Psychiatric Exam Psychiatric exam: Normal Affect, Normal Mood - Skin Skin Exam: Dry, Normal Color, Warm Discharge Plan - Discharge Medications Prescriptions: Cefazolin Sodium in 0.9 % NaCl [Cefazolin 2 G/50 ml-0.9% NaCl] 2 gm IV Q8 36 Days #108 piggyback - Follow Up Plan Condition: FAIR Disposition: TRANSF TO SNF Instructions: Depression, Sepsis, Adult (DC), Preventing Falls, Peripherally- Inserted Central Catheter (DC) Additional Instructions: You are being discharged to subacute rehab. You will continue to be monitored while in subacute rehab. You have a picc line placed for IV antibiotics You will be receiving IV Cefazolin 2gm IVPB every 8 hours for the next 36 days Your PICC LINE WILL NEED TO BE REMOVED after completing your course of antibiotics (August 19) Continue to take your medications as prescribed: NOTE HOLD BLOOD PRESSURE MEDICATION IF BLOOD PRESSURE IS LESS THAN 105 systolic Please follow up with a primary care physician within 3-5 days after discharge from subacute rehab. If you do not have one, YOU WILL NEED TO CALL YOUR INSURANCE COMPANY TO SET YOU UP WITH A PRIMARY CARE DOCTOR THAT IS COVERED BY YOUR INSURANCE COMPANY If your symptoms return, please go to the nearest emergency room as soon as possible
--- NOTE | 2018-07-14 12:11 | PN ---
DATE: 07/14/2018 SUBJECTIVE: The patient is seen lying in bed on 5R. She is scheduled transesophageal echocardiogram this morning. She remains afebrile. CURRENT MEDICATIONS: Include cefazolin, calcium supplement, Cymbalta, Depakote, Ecotrin, Lopressor 50 mg b.i.d., Neurontin, oxycodone, Protonix, ReQuip, Seroquel, and Zestril. OBJECTIVE: GENERAL: She is a middle-aged woman who appears comfortable at rest. VITAL SIGNS: Blood pressure is 114/70 with a pulse of 70, respirations are 14. She is afebrile. HEENT: No JVD. CHEST: Few scattered rhonchi heard. HEART: PMI in normal position. No pathological gallops noted. ABDOMEN: Soft and nontender with normoactive bowel sounds. EXTREMITIES: No edema. DIAGNOSTIC DATA: Potassium 4.4, BUN and creatinine 21 and 0.7, white count 10.4, hemoglobin and hematocrit 8.8 and 29.2, platelet count 418,000. IMPRESSION: 1. Staphylococcus bacteremia for transesophageal echocardiogram today. There was exclude any significant evidence of endocarditis. 2. Metastatic breast cancer. 3. Chronic anemia. 4. Rest of problems as noted. RECOMMENDATIONS: The patient want to go transthoracic echocardiogram this morning. Further recommendations will be made based upon those results. I will follow along as needed. Hardy Millan MD
[2018-07-14 15:08] VITALS: RESP 18; TEMP 97.6; O2SAT 96
[2018-07-14] MEDS: oxyCODONE 20 mg Immediate Release Tab PO PRN (17:16)
[2018-07-14 17:17] VITALS: BP 156/75; PULSE 79
--- NOTE | 2018-07-15 02:51 | PN ---
DATE: 07/14/2018 SUBJECTIVE: The patient was seen earlier this morning. No fevers. No chills. No nausea. PHYSICAL EXAMINATION: VITAL SIGNS: Temperature is 98, blood pressure is 150/70, respiratory rate of 18, heart rate of 57. HEENT: Unremarkable. NECK: Supple. LUNGS: Decreased breath sounds. HEART: Normal S1 and S2. ABDOMEN: Soft. Nontender. LABORATORY DATA: Reviewed. ASSESSMENT AND PLAN: This is a 62-year-old female who was seen earlier this morning, who was admitted with sepsis with sensitive Staphylococcus aureus bacteremia. Source is unclear. On day #7 of 28 to 42 days with weekly CBC, SMA-18, sedimentation rate and C-reactive protein. The patient had an echocardiogram today. No evidence of endocarditis in the transthoracic echocardiogram. She will have weekly labs. We will follow with you. Jamel Valencia MD
== END 2018-07-14 19:34 | DRG 872 ==
LOC: ED 10:04 → ERH 14:24 → 5RSO 16:39 → OBSVTOIN 07-05 09:12 → UNDODISIN 07-08 17:54
PROVIDERS: ADMIT Internal Medicine; ATTEND Internal Medicine
PROC: 02HV33Z Insertion of Infusion Device into Superior Vena Cava, Percutaneous Approach (ICD-10-PCS; principal; 2018-07-10)
PROC: B548ZZA Ultrasonography of Superior Vena Cava, Guidance (ICD-10-PCS; 2018-07-10)
PROC: B24BZZ4 Ultrasonography of Heart with Aorta, Transesophageal (ICD-10-PCS; 2018-07-14)
DX: A41.01 Sepsis due to Methicillin susceptible Staphylococcus aureus (principal); C79.51 Secondary malignant neoplasm of bone; C50.919 Malignant neoplasm of unspecified site of unspecified female breast; G89.3 Neoplasm related pain (acute) (chronic); G62.9 Polyneuropathy, unspecified; I10 Essential (primary) hypertension; G89.4 Chronic pain syndrome; I25.10 Atherosclerotic heart disease of native coronary artery without angina pectoris; D63.8 Anemia in other chronic diseases classified elsewhere; E78.5 Hyperlipidemia, unspecified; E78.00 Pure hypercholesterolemia, unspecified; M25.561 Pain in right knee; M81.0 Age-related osteoporosis without current pathological fracture; R41.0 Disorientation, unspecified; F32.9 Major depressive disorder, single episode, unspecified; F41.9 Anxiety disorder, unspecified; G25.81 Restless legs syndrome; R26.81 Unsteadiness on feet; W19.XXXA Unspecified fall, initial encounter; Z91.19 Patient's noncompliance with other medical treatment and regimen; Z92.21 Personal history of antineoplastic chemotherapy; Z79.899 Other long term (current) drug therapy; Z96.642 Presence of left artificial hip joint; Z87.891 Personal history of nicotine dependence

== ENCOUNTER 2018-08-24 06:45 | Emergency (ER) | payer MEDICARE, OTHER ==
[2018-08-24 06:58] VITALS: BMI 25.8
[2018-08-24 07:02] VITALS: TEMP 99; O2SAT 96
--- NOTE | 2018-08-24 08:24 | ED PDOC ---
Arrival/HPI - General Chief Complaint: Lower Extremity Problem/Injury Time Seen by Provider: 08/24/18 08:00 - History of Present Illness Narrative History of Present Illness (Text): 08/24/18 08:27 63 year old F with pmh of Stage IV Breast CA w/ bony mets, coronary artery disease, hypertension, and osteoarthritis presents complaining of chronic right groin pain radiating to right leg. Patient report she was discharged from a subacute rehab last saturday without prescription. [place] umbrella frame maker aware was reviewed and noted that the patient was last prescribed oxycodone 20mg. Patient has an upcoming appointment with her pain management doctor this Saturday. Patient has no other somatic complaints at the moment. Past Medical History - Provider Review Nursing Documentation Reviewed: Yes - Past History Past History: No Previous - Infectious Disease Hx of Infectious Diseases: None - Tetanus Immunization Tetanus Immunization: Unknown - Past Medical History Past Medical History: Non-Contributing - Cardiac Hx Pacemaker: No - Pulmonary Hx Respiratory Disorders: No - Neurological Hx Neurological Disorder: No - HEENT Hx HEENT Disorder: No - Renal Hx Renal Disorder: No - Endocrine/Metabolic Hx Endocrine Disorders: No - Hematological/Oncological Hx Cancer: Yes (Stage 4, breast CA mets to bone) - Integumentary Hx Dermatological Disorder: No - Musculoskeletal/Rheumatological Hx Arthritis: Yes - Gastrointestinal Hx Gastrointestinal Disorders: No - Genitourinary/Gynecological Hx Genitourinary Disorders: No - Psychiatric Hx Anxiety: Yes Hx Substance Use: No - Surgical History Hx Mastectomy: No - Anesthesia Hx Anesthesia: Yes Hx Anesthesia Reactions: No Hx Malignant Hyperthermia: No - Suicidal Assessment Feels Threatened In Home Enviroment: No Family/Social History - Physician Review Nursing Documentation Reviewed: Yes Family/Social History: Unknown Family HX Smoking Status: Former Smoker Hx Alcohol Use: No Amount per day: 3 Hx Substance Use: No Hx Substance Use Treatment: No Allergies/Home Meds Allergies/Adverse Reactions: Allergies No Known Allergies Allergy (Verified 08/24/18 06:58) Home Medications: Home Meds Medication Instructions Recorded Confirmed Calcium Carbonate [Caltrate] 600 mg PO DAILY 04/15/18 04/15/18 Cholecalciferol (Vitamin D3) 1,000 unit PO DAILY 04/15/18 04/15/18 [Vitamin D3] DULoxetine [Cymbalta] 20 mg PO DAILY 04/15/18 04/15/18 Vitamin B Complex [Super B-50 1 cap PO DAILY 04/15/18 04/15/18 Complex] Review of Systems - Physician Review All systems were reviewed & negative as marked: Yes - Review of Systems Constitutional: absent: Fevers Respiratory: absent: SOB, Cough, Wheezing Gastrointestinal: absent: Abdominal Pain, Diarrhea, Nausea, Vomiting, Hematochez ia, Hematemesis Genitourinary Female: absent: Dysuria, Hematuria Musculoskeletal: Arthralgias (right leg) Skin: absent: Rash, Laceration Neurological: absent: Headache, Dizziness Physical Exam - Physical Exam Narrative Physical Exam (Text): 08/24/18 08:39 Gen: VS reviewed, alert, well developed, well nourished, nontoxic, mild distress. ENT: normal pharynx. Eye: EOMI, PERRL. Neck: no JVD, supple, no adenopathy. CV: regular rate, regular rhythm, no rubs, no murmur, no gallops, S1, S2, pulses equal and strong. Pulm: no distress, clear to auscultation, no wheeze, no rhonchi, breath sounds equal, no rales. Abd: soft, nontender, no guarding, no rebound, no rigidity, normal bowel sounds. Ext: no edema. Skin: good color, no rash, no cyanosis. Psych: responds appropriately to questions, normal affect. Neuro: oriented x 3, CN2-12 intact grossly, motor intact, sensation intact. Vital Signs Temp Pulse Resp BP Pulse Ox 08/24/18 06:59 99.0 F 82 18 161/99 H 96 Medical Decision Making ED Course and Treatment: 08/24/18 08:18 Impression: 63 year old F seen for chronic pain, [place] umbrella frame maker aware was reviewed and noted that the patient was last prescribed oxycodone 20mg. Patient has an upcoming appointment with her pain management doctor this Saturday. Plan: -- Reassess and disposition Prior Visits: Notes and results from previous visits were reviewed. Progress Notes: I will only refill this prescription for three days. - Scribe Statement The provider has reviewed the documentation as recorded by the Macy Goetz All medical record entries made by the Betoibsabas were at my direction and personally dictated by me. I have reviewed the chart and agree that the record accurately reflects my personal performance of the history, physical exam, medical decision making, and the department course for this patient. I have also personally directed, reviewed, and agree with the discharge instructions and disposition. Disposition/Present on Arrival - Present on Arrival Any Indicators Present on Arrival: No History of DVT/PE: No History of Uncontrolled Diabetes: No Urinary Catheter: No History of Decub. Ulcer: No History Surgical Site Infection Following: None - Disposition Have Diagnosis and Disposition been Completed?: Yes Diagnosis: Chronic hip pain Disposition: HOME/ ROUTINE Disposition Time: 08:24 Patient Plan: Discharge Condition: STABLE Discharge Instructions (ExitCare): Chronic Pain (DC) Additional Instructions: keep your appointment with your doctor. Prescriptions: Oxycodone HCl 20 mg PO BID 3 Days #6 tablet Forms: [facility] (Togolese)
[2018-08-24 08:34] VITALS: BP 152/81; PULSE 81; RESP 16
== END 2018-08-24 08:37 | disposition home or self-care (01) ==
LOC: ED 06:45
DX: M25.551 Pain in right hip (principal); G89.29 Other chronic pain

== ENCOUNTER 2018-09-12 21:39 | Inpatient (IN) | payer MEDICARE, OTHER ==
[2018-09-12 21:40] VITALS: BMI 25.8
[2018-09-12 22:23] LABS: VENOUS BLOOD GAS BASE EXCESS -2.4 mmol/L (0.0-2.0); VENOUS BLOOD GAS PO2 37 mm/Hg (30-55); VENOUS BLOOD PH 7.41 (7.32-7.43)
[2018-09-12 22:31] LABS: BASO # 0.02 K/mm3 (0.0-2.0); BASO % 0.3 % (0.0-3.0); EOS # 0.1 (0.0-0.7); HEMOGLOBIN 7.9 g/dL (12.0-16.0); LYMPH # 1.2 (1.2-3.4); LYMPH % 18.2 % (22.0-35.0); MEAN CELL VOLUME 77.3 fl (80.0-105.0); MEAN CORPUSCULAR HEMOGLOBIN 23.9 pg (25.0-35.0); MEAN CORPUSCULAR HGB CONC 30.9 g/dl (31.0-37.0); MONO # 1.4 (0.1-0.6); MONO % 20.8 % (1.0-6.0); PLATELET COUNT 193 10^3/uL (120.0-450.0); RBC 3.31 10^6/uL (3.5-6.1); RED CELL DISTRIBUTION WIDTH 16.4 % (11.5-14.5); WHITE BLOOD COUNT 6.5 10^3/uL (4.5-11.0)
[2018-09-12 22:36] LABS: INR 1.33; PARTIAL THROMBOPLASTIN TIME 37.2 Seconds (26.9-38.3); PROTHROMBIN TIME 14.8 SECONDS (9.4-12.5)
[2018-09-12 22:48] LABS: B-TYPE NATRIURETIC PEPTIDE 252 pg/mL (0-450); TROPONIN I < 0.01 ng/mL
[2018-09-12 22:49] LABS: ALB/GLOB RATIO 0.8 (1.1-1.8); ALBUMIN 3.1 g/dL (3.0-4.8); ALT/SGPT 14 U/L (7-56); AST/SGOT 39 U/L (14-36); BLOOD UREA NITROGEN 14 mg/dL (7-21); CALCIUM 7.4 mg/dL (8.4-10.5); GFR NON-AFRICAN AMERICAN > 60
--- NOTE | 2018-09-12 23:39 | ED PDOC ---
Arrival/HPI - General Chief Complaint: Altered Mental Status Time Seen by Provider: 09/12/18 21:44 Historian: Patient - History of Present Illness Narrative History of Present Illness (Text): 09/12/18 23:36 63 year old female, whose past medical history includes HTN, HLD, stage 4 breast ca with bony mets, MSSA bacteremia, CAD, and OA, presents to the emergency department by EMS for lethargy and weakness. Patient is a poor historian and offers no other complaints or history. Patient denies any fever, chills, chest pain, shortness of breath, nausea, vomiting, diarrhea, urinary symptoms, back pain, neck pain, headache, dizziness, or any other complaints. Symptom Onset: Gradual Symptom Course: Unchanged Activities at Onset: Light Past Medical History - Provider Review Nursing Documentation Reviewed: Yes - Past History Past History: No Previous - Infectious Disease Hx of Infectious Diseases: None - Tetanus Immunization Tetanus Immunization: Unknown - Past Medical History Past Medical History: Non-Contributing - Cardiac Hx Pacemaker: No - Pulmonary Hx Respiratory Disorders: No - Neurological Hx Neurological Disorder: No - HEENT Hx HEENT Disorder: No - Renal Hx Renal Disorder: No - Endocrine/Metabolic Hx Endocrine Disorders: No - Hematological/Oncological Hx Blood Disorders: Yes Hx Cancer: Yes (Stage 4, breast CA mets to bone) - Integumentary Hx Dermatological Disorder: No - Musculoskeletal/Rheumatological Hx Musculoskeletal Disorders: Yes Hx Arthritis: Yes - Gastrointestinal Hx Gastrointestinal Disorders: No - Genitourinary/Gynecological Hx Genitourinary Disorders: No - Psychiatric Hx Psychophysiologic Disorder: Yes Hx Anxiety: Yes Hx Substance Use: No - Surgical History Hx Mastectomy: No - Anesthesia Hx Anesthesia: Yes Hx Anesthesia Reactions: No Hx Malignant Hyperthermia: No - Suicidal Assessment Feels Threatened In Home Enviroment: No Family/Social History - Physician Review Nursing Documentation Reviewed: Yes Family/Social History: No Known Family HX Smoking Status: Former Smoker Hx Alcohol Use: No Amount per day: 3 Hx Substance Use: No Hx Substance Use Treatment: No Allergies/Home Meds Allergies/Adverse Reactions: Allergies No Known Allergies Allergy (Verified 08/24/18 06:58) Home Medications: Home Meds Medication Instructions Recorded Confirmed Calcium Carbonate [Caltrate] 600 mg PO DAILY 04/15/18 04/15/18 Cholecalciferol (Vitamin D3) 1,000 unit PO DAILY 04/15/18 04/15/18 [Vitamin D3] DULoxetine [Cymbalta] 20 mg PO DAILY 04/15/18 04/15/18 Vitamin B Complex [Super B-50 1 cap PO DAILY 04/15/18 04/15/18 Complex] Review of Systems - Physician Review All systems were reviewed & negative as marked: Yes - Review of Systems Constitutional: absent: Fevers, Other (chills) Respiratory: absent: SOB Cardiovascular: absent: Chest Pain Gastrointestinal: absent: Diarrhea, Nausea, Vomiting Genitourinary Female: absent: Dysuria, Frequency, Hematuria Musculoskeletal: absent: Back Pain, Neck Pain Neurological: Other (weakness). absent: Headache, Dizziness Physical Exam Vital Signs Reviewed: Yes Vital Signs Temp Pulse Resp BP Pulse Ox 09/12/18 21:47 99.0 F 93 H 14 137/73 97 Temperature: Afebrile Blood Pressure: Normal Pulse: Regular Respiratory Rate: Normal Appearance: Positive for: Well-Appearing, Non-Toxic, Comfortable Pain Distress: None Mental Status: Positive for: Alert and Oriented X 3 Finger Stick Blood Glucose: 148 - Systems Exam Head: Present: Atraumatic, Normocephalic Pupils: Present: PERRL Extroacular Muscles: Present: EOMI Conjunctiva: Present: Normal Mouth: Present: Dry (slightly ) Neck: Present: Normal Range of Motion Respiratory/Chest: Present: Clear to Auscultation, Good Air Exchange. No: Respiratory Distress, Accessory Muscle Use Cardiovascular: Present: Regular Rate and Rhythm, Normal S1, S2. No: Murmurs Abdomen: No: Tenderness, Distention, Peritoneal Signs Back: Present: Normal Inspection Upper Extremity: Present: Normal Inspection. No: Cyanosis, Edema Lower Extremity: Present: Normal Inspection. No: Edema Neurological: Present: GCS=15, CN II-XII Intact, Speech Normal Skin: Present: Warm, Dry, Normal Color. No: Rashes Psychiatric: Present: Alert, Oriented x 3 Medical Decision Making ED Course and Treatment: 09/12/18 23:39 Impression: 63 year old female presents for evaluation of lethargy and weakness. Plan: -- VBG -- EKG -- Labs -- Chest X-ray -- Blood Culture, Urine Culture -- Procalcitonin serum -- Urinalysis -- Reassess and disposition Prior Visits: Notes and results from previous visits were reviewed. Progress Notes: EKG shows Sinus at 92 BPM with normal axis, normal intervals. Interpreted by me. CXR Impression: As read by me, no change from pervious 09/13/18 00:56 Case discussed with the rn medical inpatient services and Dr. Turner who is aware and agrees with the plan/ Patient will be admitted to hospitalist service. He recommends holding blood transfusion at this point. - Lab Interpretations Lab Results: pO2 37 mm/Hg (30-55) 09/12/18 22:20 VBG pH 7.41 (7.32-7.43) 09/12/18 22:20 VBG pCO2 34.0 (40-60) L 09/12/18 22:20 VBG HCO3 21.6 mmol/l (21-28) 09/12/18 22:20 VBG Total CO2 22.6 mmol.L (22-28) 09/12/18 22:20 VBG O2 Sat (Calc) 71.4 % (40-65) H 09/12/18 22:20 VBG Base Excess -2.4 mmol/L (0.0-2.0) L 09/12/18 22:20 VBG Potassium 3.0 mmol/L (3.6-5.2) L 09/12/18 22:20 Sodium 139.0 mmol/L (132-148) 09/12/18 22:20 Chloride 110.0 mmol/L (98-107) H 09/12/18 22:20 Glucose 115 mg/dl (65-105) H 09/12/18 22:20 Lactate 1.6 mmol/L (0.7-2.1) 09/12/18 22:20 FiO2 21.0 % 09/12/18 22:20 PT 14.8 SECONDS (9.4-12.5) H 09/12/18 22:15 INR 1.33 09/12/18 22:15 APTT 37.2 Seconds (26.9-38.3) 09/12/18 22:15 Troponin I < 0.01 ng/mL 09/12/18 22:15 NT-Pro-B Natriuret Pep 252 pg/mL (0-450) 09/12/18 22:15 Total Bilirubin 0.7 mg/dL (0.2-1.3) 09/12/18 22:15 AST 39 U/L (14-36) H D 09/12/18 22:15 ALT 14 U/L (7-56) 09/12/18 22:15 Alkaline Phosphatase 90 U/L (38-126) 09/12/18 22:15 Total Protein 6.9 g/dL (5.8-8.3) 09/12/18 22:15 Albumin 3.1 g/dL (3.0-4.8) 09/12/18 22:15 Globulin 3.8 gm/dL 09/12/18 22:15 Albumin/Globulin Ratio 0.8 (1.1-1.8) L 09/12/18 22:15 I have reviewed the lab results: Yes - RAD Interpretation Radiology Orders: 09/12/18 21:55 CHEST PORTABLE [RAD] Stat Insurance Verification Rep: ED Physician - EKG Interpretation Interpreted by ED Physician: Yes Type: 12 lead EKG - Scribe Statement The provider has reviewed the documentation as recorded by the Macy Baig Provider Scribe Attestation: All medical record entries made by the Macy were at my direction and personally dictated by me. I have reviewed the chart and agree that the record accurately reflects my personal performance of the history, physical exam, medical decision making, and the department course for this patient. I have also personally directed, reviewed, and agree with the discharge instructions and disposition. Disposition/Present on Arrival - Present on Arrival Any Indicators Present on Arrival: No History of DVT/PE: No History of Uncontrolled Diabetes: No Urinary Catheter: No History of Decub. Ulcer: No History Surgical Site Infection Following: None - Disposition Have Diagnosis and Disposition been Completed?: Yes Diagnosis: Weakness, Hypokalemia Disposition: HOSPITALIZED Disposition Time: 23:40 Condition: STABLE
[2018-09-13 00:18] LABS: NEUTROPHIL 62 % (50.0-70.0)
[2018-09-13 00:19] LABS: EOSINOPHIL 2 % (0.0-3.0); LYMPHOCYTE 20 % (22.0-35.0); MONOCYTE 16 % (1.0-6.0); PLATELET ESTIMATE NORMAL (NORMAL)
[2018-09-13 00:38] LABS: URINE BILIRUBIN NEGATIVE (NEGATIVE); URINE BLOOD NEGATIVE (NEGATIVE); URINE GLUCOSE (UA) NEGATIVE (NEGATIVE); URINE LEUKOCYTE ESTERASE NEGATIVE Leu/uL (NEGATIVE); URINE PROTEIN TRACE mg/dL (<30 mg/dL)
[2018-09-13] MEDS ORDERED: Potassium Chloride 20 mEq ER Tab PO STA (00:55)
[2018-09-13] MEDS ORDERED: Sodium Chloride 0.9% 1,000 ML IV SCH (01:00)
[2018-09-13 01:04] LABS: URINE APPEARANCE CLEAR (CLEAR); URINE COLOR YELLOW (YELLOW); URINE RBC 0 - 2 /hpf (0-2); URINE WBC 0 - 2 /hpf (0-6)
[2018-09-13 01:05] LABS: URINE BACTERIA OCC /hpf
--- NOTE | 2018-09-13 03:39 | CP.PCM.HP ---
<Severino Alcantar - Last Filed: 09/13/18 04:50> History of Present Illness - History of Present Illness History of Present Illness: Severino Alcantar, PGY1 H&P for Dr. Turner cc: "weakness" Patient is a 63 year old female, whose past medical history includes stage IV invasive ductal carcinoma/breast cancer with bony mets, MSSA bacteremia, HTN, CAD, and OA presents to the emergency department complaining of weakness. Patient is AAOx3. However, she states that her family brought her here and does not understand why. Family was not present during time of interview. Patient does not offer any complaints at this time. She mentions that she has been eating and drinking less water lately. She denies headache, fever, chills, n/v/d, urinary frequency/urgency/dysuria, blood stool or other bowel changes. Last hospital admission was for fall and gait instability. A full 12 point ROS was conducted and unremarkable except as stated above. PMD: none Pharm: [facility] PMHx: stage IV invasive ductal carcinoma/breast cancer with bony, MSSA bacteremia, HTN, CAD, and OA SHx: denies etoh, smoking and drugs. Lives alone, has contact with Son in law PSHx: left hip surgery 10 yearsd ago, ankle surgery FamHx: father had unknown pelvic cancer, mother had CVA Allergies: denies Meds: unobtainable at this time. Will need to confirm in the morning. Present on Admission - Present on Admission Any Indicators Present on Admission: No Review of Systems - Review of Systems All systems: reviewed and no additional remarkable complaints except (as per H PI) Past Patient History - Infectious Disease Hx of Infectious Diseases: None - Tetanus Immunizations Tetanus Immunization: Unknown - Past Social History Smoking Status: Former Smoker - CARDIAC Hx Pacemaker: No - PULMONARY Hx Respiratory Disorders: No - NEUROLOGICAL Hx Neurological Disorder: No - HEENT Hx HEENT Problems: No - RENAL Hx Chronic Kidney Disease: No - ENDOCRINE/METABOLIC Hx Endocrine Disorders: No - HEMATOLOGICAL/ONCOLOGICAL Hx Blood Disorders: Yes Hx Cancer: Yes (Stage 4, breast CA mets to bone) - INTEGUMENTARY Hx Dermatological Problems: No - MUSCULOSKELETAL/RHEUMATOLOGICAL Hx Musculoskeletal Disorders: Yes Hx Arthritis: Yes - GASTROINTESTINAL Hx Gastrointestinal Disorders: No - GENITOURINARY/GYNECOLOGICAL Hx Genitourinary Disorders: No - PSYCHIATRIC Hx Psychophysiologic Disorder: Yes Hx Anxiety: Yes Hx Substance Use: No - SURGICAL HISTORY Hx Mastectomy: No - ANESTHESIA Hx Anesthesia: Yes Hx Anesthesia Reactions: No Hx Malignant Hyperthermia: No Meds Allergies/Adverse Reactions: Allergies Allergy/AdvReac Type Severity Reaction Status Date / Time No Known Allergies Allergy Verified 08/24/18 06:58 Physical Exam - Constitutional Additional comments: Fatigued - Head Exam Head Exam: ATRAUMATIC, NORMAL INSPECTION - Eye Exam Eye Exam: EOMI, Normal appearance - ENT Exam ENT Exam: Mucous Membranes Dry - Respiratory Exam Respiratory Exam: Clear to Auscultation Bilateral. absent: Chest Wall Tenderness, Rales, Rhonchi, Wheezes, Respiratory Distress - Cardiovascular Exam Cardiovascular Exam: RRR, +S1, +S2 - GI/Abdominal Exam GI & Abdominal Exam: Normal Bowel Sounds, Soft. absent: Firm, Guarding, Pulsatile Mass, Rebound, Rigid, Tenderness Additional comments: No suprapubic tenderness - Extremities Exam Extremities exam: Positive for: normal capillary refill, normal inspection, pedal pulses present - Back Exam Back exam: NORMAL INSPECTION - Neurological Exam Neurological exam: Alert, CN II-XII Intact, Oriented x3, Reflexes Normal - Psychiatric Exam Psychiatric exam: Normal Affect, Normal Mood - Skin Skin Exam: Dry, Intact, Normal Color, Warm Results - Vital Signs Recent Vital Signs: Last Vital Signs Temp 99.0 F 09/12/18 21:47 Pulse 89 09/13/18 00:19 Resp 18 09/13/18 00:19 BP 145/67 09/13/18 00:19 Pulse Ox 98 09/13/18 00:19 - Labs Result Diagrams: 09/12/18 22:15 09/12/18 22:15 Labs: Laboratory Results - last 24 hr 09/12/18 09/12/18 09/12/18 22:15 22:15 22:15 WBC 6.5 D RBC 3.31 L Hgb 7.9 L Hct 25.6 L MCV 77.3 L D MCH 23.9 L MCHC 30.9 L RDW 16.4 H Plt Count 193 MPV 9.0 Neut % (Auto) 58.7 Lymph % (Auto) 18.2 L [place] % (Auto) 20.8 H Eos % (Auto) 2.0 Baso % (Auto) 0.3 Lymph # (Auto) 1.2 [place] # (Auto) 1.4 H Eos # (Auto) 0.1 Baso # (Auto) 0.02 Absolute Neuts (auto) 3.83 Neutrophils % (Manual) 62 Lymphocytes % (Manual) 20 L Monocytes % (Manual) 16 H Eosinophils % (Manual) 2 Platelet Evaluation Normal PT 14.8 H INR 1.33 APTT 37.2 pO2 VBG pH VBG pCO2 VBG HCO3 VBG Total CO2 VBG O2 Sat (Calc) VBG Base Excess VBG Potassium Glucose Lactate FiO2 Sodium 138 Potassium 2.8 L* D Chloride 110 H Carbon Dioxide 20 L Anion Gap 11 BUN 14 Creatinine 0.7 Est GFR ( Amer) > 60 Est GFR (Non-Af Amer) > 60 Random Glucose 115 H Calcium 7.4 L Phosphorus 3.4 Magnesium 1.8 Total Bilirubin 0.7 AST 39 H D ALT 14 Alkaline Phosphatase 90 Ammonia Troponin I < 0.01 NT-Pro-B Natriuret Pep 252 Total Protein 6.9 Albumin 3.1 Globulin 3.8 Albumin/Globulin Ratio 0.8 L Venous Blood Potassium Urine Color Urine Appearance Urine pH Ur Specific [place] Urine Protein Urine Glucose (UA) Urine Ketones Urine Blood Urine Nitrate Urine Bilirubin Urine Urobilinogen Ur Leukocyte Esterase Urine RBC Urine WBC Ur Epithelial Cells Urine Bacteria 09/12/18 09/12/18 09/13/18 22:20 23:45 00:30 WBC RBC Hgb Hct MCV MCH MCHC RDW Plt Count MPV Neut % (Auto) Lymph % (Auto) [place] % (Auto) Eos % (Auto) Baso % (Auto) Lymph # (Auto) [place] # (Auto) Eos # (Auto) Baso # (Auto) Absolute Neuts (auto) Neutrophils % (Manual) Lymphocytes % (Manual) Monocytes % (Manual) Eosinophils % (Manual) Platelet Evaluation PT INR APTT pO2 37 VBG pH 7.41 VBG pCO2 34.0 L VBG HCO3 21.6 VBG Total CO2 22.6 VBG O2 Sat (Calc) 71.4 H VBG Base Excess -2.4 L VBG Potassium 3.0 L Glucose 115 H Lactate 1.6 FiO2 21.0 Sodium 139.0 Potassium Chloride 110.0 H Carbon Dioxide Anion Gap BUN Creatinine Est GFR ( Amer) Est GFR (Non-Af Amer) Random Glucose Calcium Phosphorus Magnesium Total Bilirubin AST ALT Alkaline Phosphatase Ammonia 37 H Troponin I NT-Pro-B Natriuret Pep Total Protein Albumin Globulin Albumin/Globulin Ratio Venous Blood Potassium 3.0 L Urine Color Yellow Urine Appearance Clear Urine pH 6.0 Ur Specific [place] 1.025 Urine Protein Trace H Urine Glucose (UA) Negative Urine Ketones Trace H Urine Blood Negative Urine Nitrate Negative Urine Bilirubin Negative Urine Urobilinogen 1.0 H Ur Leukocyte Esterase Negative Urine RBC 0 - 2 Urine WBC 0 - 2 Ur Epithelial Cells 3 - 4 Urine Bacteria Occ Assessment & Plan - Assessment and Plan (Free Text) Assessment: Patient is a 63 year old female, whose past medical history includes stage IV invasive ductal carcinoma/breast cancer with bony mets, MSSA bacteremia, HTN, CAD, and OA presents to the emergency department complaining of weakness. Plan: Weakness 2/2 Hypokalemia vs Poor PO Intake vs Normocytic Anemia - IVF NS @ 100 cc/hr - HHD - K was 2.8 on admission, repleted - Corrected Calcium was 8.1, repleted - Replete all electrolyte derangements - frequent vital checks - frequent neuro checks - Hgb 7.9 (baseline around 8.8); no active bleeding at this time - Iron studies - FOBT as Hgb lower than baseline - UDS - procal - UCx and BCx - UA: negative for UTI - CXR: no consolidation/infiltrate HTN - normotensive at this time - Resume home BP meds once confirmed CAD - ASA 81mg daily Stage IV Invasive Ductal Carcinoma/Breast Cancer with Bony Mets - no active issues at this time ppx: - Lovenox Diet: HHD Dispo: Will observe patient on remote tele. Will need to confirm home meds in the morning. Case was discussed and reviewed with Attending Physician, Dr. Turner <Nelly Turner - Last Filed: 09/13/18 19:03> Results - Vital Signs Recent Vital Signs: Last Vital Signs Temp 98.0 F 09/13/18 16:28 Pulse 100 H 09/13/18 18:00 Resp 20 09/13/18 16:28 BP 166/71 H 09/13/18 18:00 Pulse Ox 97 09/13/18 16:28 - Labs Result Diagrams: 09/13/18 06:00 09/13/18 08:30 Labs: Laboratory Results - last 24 hr 09/12/18 09/12/18 09/12/18 22:15 22:15 22:15 WBC 6.5 D RBC 3.31 L Hgb 7.9 L Hct 25.6 L MCV 77.3 L D MCH 23.9 L MCHC 30.9 L RDW 16.4 H Plt Count 193 MPV 9.0 Neut % (Auto) 58.7 Lymph % (Auto) 18.2 L [place] % (Auto) 20.8 H Eos % (Auto) 2.0 Baso % (Auto) 0.3 Lymph # (Auto) 1.2 [place] # (Auto) 1.4 H Eos # (Auto) 0.1 Baso # (Auto) 0.02 Absolute Neuts (auto) 3.83 Neutrophils % (Manual) 62 Lymphocytes % (Manual) 20 L Monocytes % (Manual) 16 H Eosinophils % (Manual) 2 Platelet Evaluation Normal PT 14.8 H INR 1.33 APTT 37.2 pO2 VBG pH VBG pCO2 VBG HCO3 VBG Total CO2 VBG O2 Sat (Calc) VBG Base Excess VBG Potassium Glucose Lactate FiO2 Sodium Potassium Chloride Carbon Dioxide Anion Gap BUN Creatinine Est GFR ( Amer) Est GFR (Non-Af Amer) Random Glucose Calcium Phosphorus Magnesium Iron TIBC % Saturation Transferrin Ferritin Total Bilirubin AST ALT Alkaline Phosphatase Ammonia Troponin I C-React Prot High Sens NT-Pro-B Natriuret Pep Total Protein Albumin Globulin Albumin/Globulin Ratio Vitamin B12 Folate Procalcitonin < 0.05 L Venous Blood Potassium Urine Color Urine Appearance Urine pH Ur Specific [place] Urine Protein Urine Glucose (UA) Urine Ketones Urine Blood Urine Nitrate Urine Bilirubin Urine Urobilinogen Ur Leukocyte Esterase Urine RBC Urine WBC Ur Epithelial Cells Urine Bacteria 09/12/18 09/12/18 09/12/18 22:15 22:15 22:20 WBC RBC Hgb Hct MCV MCH MCHC RDW Plt Count MPV Neut % (Auto) Lymph % (Auto) [place] % (Auto) Eos % (Auto) Baso % (Auto) Lymph # (Auto) [place] # (Auto) Eos # (Auto) Baso # (Auto) Absolute Neuts (auto) Neutrophils % (Manual) Lymphocytes % (Manual) Monocytes % (Manual) Eosinophils % (Manual) Platelet Evaluation PT INR APTT pO2 37 VBG pH 7.41 VBG pCO2 34.0 L VBG HCO3 21.6 VBG Total CO2 22.6 VBG O2 Sat (Calc) 71.4 H VBG Base Excess -2.4 L VBG Potassium 3.0 L Glucose 115 H Lactate 1.6 FiO2 21.0 Sodium 138 139.0 Potassium 2.8 L* D Chloride 110 H 110.0 H Carbon Dioxide 20 L Anion Gap 11 BUN 14 Creatinine 0.7 Est GFR ( Amer) > 60 Est GFR (Non-Af Amer) > 60 Random Glucose 115 H Calcium 7.4 L Phosphorus 3.4 Magnesium 1.8 Iron TIBC % Saturation Transferrin Ferritin Total Bilirubin 0.7 AST 39 H D ALT 14 Alkaline Phosphatase 90 Ammonia Troponin I < 0.01 C-React Prot High Sens > 15.00 H NT-Pro-B Natriuret Pep 252 Total Protein 6.9 Albumin 3.1 Globulin 3.8 Albumin/Globulin Ratio 0.8 L Vitamin B12 Folate Procalcitonin Venous Blood Potassium 3.0 L Urine Color Urine Appearance Urine pH Ur Specific [place] Urine Protein Urine Glucose (UA) Urine Ketones Urine Blood Urine Nitrate Urine Bilirubin Urine Urobilinogen Ur Leukocyte Esterase Urine RBC Urine WBC Ur Epithelial Cells Urine Bacteria 09/12/18 09/13/18 09/13/18 23:45 00:30 06:00 WBC 6.6 RBC 3.79 Hgb 8.9 L Hct 29.3 L MCV 77.3 L MCH 23.5 L MCHC 30.4 L RDW 16.5 H Plt Count 214 MPV 9.5 Neut % (Auto) Lymph % (Auto) [place] % (Auto) Eos % (Auto) Baso % (Auto) Lymph # (Auto) [place] # (Auto) Eos # (Auto) Baso # (Auto) Absolute Neuts (auto) Neutrophils % (Manual) Lymphocytes % (Manual) Monocytes % (Manual) Eosinophils % (Manual) Platelet Evaluation PT INR APTT pO2 VBG pH VBG pCO2 VBG HCO3 VBG Total CO2 VBG O2 Sat (Calc) VBG Base Excess VBG Potassium Glucose Lactate FiO2 Sodium Potassium Chloride Carbon Dioxide Anion Gap BUN Creatinine Est GFR ( Amer) Est GFR (Non-Af Amer) Random Glucose Calcium Phosphorus Magnesium Iron TIBC % Saturation Transferrin Ferritin Total Bilirubin AST ALT Alkaline Phosphatase Ammonia 37 H Troponin I C-React Prot High Sens NT-Pro-B Natriuret Pep Total Protein Albumin Globulin Albumin/Globulin Ratio Vitamin B12 Folate Procalcitonin Venous Blood Potassium Urine Color Yellow Urine Appearance Clear Urine pH 6.0 Ur Specific [place] 1.025 Urine Protein Trace H Urine Glucose (UA) Negative Urine Ketones Trace H Urine Blood Negative Urine Nitrate Negative Urine Bilirubin Negative Urine Urobilinogen 1.0 H Ur Leukocyte Esterase Negative Urine RBC 0 - 2 Urine WBC 0 - 2 Ur Epithelial Cells 3 - 4 Urine Bacteria Occ 09/13/18 09/13/18 09/13/18 06:00 06:00 06:00 WBC RBC Hgb Hct MCV MCH MCHC RDW Plt Count MPV Neut % (Auto) Lymph % (Auto) [place] % (Auto) Eos % (Auto) Baso % (Auto) Lymph # (Auto) [place] # (Auto) Eos # (Auto) Baso # (Auto) Absolute Neuts (auto) Neutrophils % (Manual) Lymphocytes % (Manual) Monocytes % (Manual) Eosinophils % (Manual) Platelet Evaluation PT INR APTT pO2 VBG pH VBG pCO2 VBG HCO3 VBG Total CO2 VBG O2 Sat (Calc) VBG Base Excess VBG Potassium Glucose Lactate FiO2 Sodium Potassium Chloride Carbon Dioxide Anion Gap BUN Creatinine Est GFR ( Amer) Est GFR (Non-Af Amer) Random Glucose Calcium Phosphorus Magnesium Iron 26 L TIBC 305 % Saturation 9 L Transferrin 200.99 L Ferritin 377.0 Total Bilirubin AST ALT Alkaline Phosphatase Ammonia Troponin I C-React Prot High Sens NT-Pro-B Natriuret Pep Total Protein Albumin Globulin Albumin/Globulin Ratio Vitamin B12 682 Folate > 20.0 Procalcitonin Venous Blood Potassium Urine Color Urine Appearance Urine pH Ur Specific [place] Urine Protein Urine Glucose (UA) Urine Ketones Urine Blood Urine Nitrate Urine Bilirubin Urine Urobilinogen Ur Leukocyte Esterase Urine RBC Urine WBC Ur Epithelial Cells Urine Bacteria 09/13/18 08:30 WBC RBC Hgb Hct MCV MCH MCHC RDW Plt Count MPV Neut % (Auto) Lymph % (Auto) [place] % (Auto) Eos % (Auto) Baso % (Auto) Lymph # (Auto) [place] # (Auto) Eos # (Auto) Baso # (Auto) Absolute Neuts (auto) Neutrophils % (Manual) Lymphocytes % (Manual) Monocytes % (Manual) Eosinophils % (Manual) Platelet Evaluation PT INR APTT pO2 VBG pH VBG pCO2 VBG HCO3 VBG Total CO2 VBG O2 Sat (Calc) VBG Base Excess VBG Potassium Glucose Lactate FiO2 Sodium 141 Potassium 3.7 Chloride 108 H Carbon Dioxide 24 Anion Gap 13 BUN 11 Creatinine 0.7 Est GFR ( Amer) > 60 Est GFR (Non-Af Amer) > 60 Random Glucose 78 Calcium 9.1 Phosphorus Magnesium Iron TIBC % Saturation Transferrin Ferritin Total Bilirubin 0.8 AST 57 H D ALT 13 Alkaline Phosphatase 124 Ammonia Troponin I C-React Prot High Sens NT-Pro-B Natriuret Pep Total Protein 8.0 Albumin 3.7 Globulin 4.4 Albumin/Globulin Ratio 0.8 L Vitamin B12 Folate Procalcitonin Venous Blood Potassium Urine Color Urine Appearance Urine pH Ur Specific [place] Urine Protein Urine Glucose (UA) Urine Ketones Urine Blood Urine Nitrate Urine Bilirubin Urine Urobilinogen Ur Leukocyte Esterase Urine RBC Urine WBC Ur Epithelial Cells Urine Bacteria Attending/Attestation - Attestation I have personally seen and examined this patient.: Yes I have fully participated in the care of the patient.: Yes I have reviewed all pertinent clinical information: Yes Notes (Text): 09/13/18 19:03 Seen and examined. Discussed with resident. A&P as above
[2018-09-13] MEDS ORDERED: Calcium Gluconate in NS 1 GM/50 ML BAG IV ONE (04:21)
[2018-09-13 06:47] LABS: HEMOGLOBIN 8.9 g/dL (12.0-16.0); MEAN CELL VOLUME 77.3 fl (80.0-105.0); MEAN CORPUSCULAR HEMOGLOBIN 23.5 pg (25.0-35.0); MEAN CORPUSCULAR HGB CONC 30.4 g/dl (31.0-37.0); MEAN PLATELET VOLUME 9.5 fl (7.0-11.0); RBC 3.79 10^6/uL (3.5-6.1); RED CELL DISTRIBUTION WIDTH 16.5 % (11.5-14.5); WHITE BLOOD COUNT 6.6 10^3/uL (4.5-11.0)
[2018-09-13 06:51] LABS: IRON 26 ug/dL (45-180)
[2018-09-13 07:01] LABS: % IRON SATURATION 9 % (20-55); TOTAL IRON BINDING CAPACITY 305 ug/dL (265-497)
[2018-09-13] MEDS: Enoxaparin 40 mg Syringe SC SCH (09:27)
[2018-09-13 09:33] LABS: ALB/GLOB RATIO 0.8 (1.1-1.8); ALBUMIN 3.7 g/dL (3.0-4.8); ALT/SGPT 13 U/L (7-56); AST/SGOT 57 U/L (14-36); BLOOD UREA NITROGEN 11 mg/dL (7-21); CALCIUM 9.1 mg/dL (8.4-10.5); GFR NON-AFRICAN AMERICAN > 60
--- NOTE | 2018-09-13 10:45 | RAD ---
Date of service: 09/12/2018 HISTORY: Sepsis Patient COMPARISON: Chest radiograph dated 07/04/2018. TECHNIQUE: 1 view obtained. FINDINGS: LUNGS: Pulmonary vascular congestion. No focal consolidation. PLEURA: No significant pleural effusion identified, no pneumothorax apparent. CARDIOVASCULAR: Atherosclerotic calcifications. Cardiomediastinal silhouette stably enlarged. OSSEOUS STRUCTURES: Unchanged. VISUALIZED UPPER ABDOMEN: Normal. OTHER FINDINGS: None. IMPRESSION: Pulmonary vascular congestion. No focal consolidation or pleural effusion.
[2018-09-13] MEDS ORDERED: oxyCODONE 20 mg Immediate Release Tab PO PRN (11:37)
[2018-09-13] MEDS ORDERED: oxyCODONE 10 mg Immediate Release Tab PO PRN (11:59)
[2018-09-13 13:32] LABS: FOLATE > 20.0 ng/mL
[2018-09-13] MEDS: oxyCODONE 30 mg Immediate Release Tab PO PRN ×2 (17:09→23:24)
--- NOTE | 2018-09-13 19:08 | CARD ---
APPROVED REPORT Date of service: 09/12/2018 EKG Measurement Heart [id number] <Conclusion> Normal sinus rhythm Possible Anterior infarct, age undetermined Abnormal ECG
[2018-09-13] MEDS: Divalproex 250 mg DR (BID formulation) PO SCH (21:21)
[2018-09-14] MEDS: oxyCODONE 30 mg Immediate Release Tab PO PRN ×4 (05:15→23:58)
[2018-09-14 07:02] LABS: HEMOGLOBIN 8.5 g/dL (12.0-16.0); MEAN CELL VOLUME 78.6 fl (80.0-105.0); MEAN CORPUSCULAR HEMOGLOBIN 23.9 pg (25.0-35.0); MEAN CORPUSCULAR HGB CONC 30.5 g/dl (31.0-37.0); MEAN PLATELET VOLUME 9.4 fl (7.0-11.0); RBC 3.55 10^6/uL (3.5-6.1); RED CELL DISTRIBUTION WIDTH 16.5 % (11.5-14.5); WHITE BLOOD COUNT 7.6 10^3/uL (4.5-11.0)
[2018-09-14 08:02] LABS: ALB/GLOB RATIO 0.8 (1.1-1.8); ALBUMIN 3.4 g/dL (3.0-4.8); ALT/SGPT 16 U/L (7-56); AST/SGOT 54 U/L (14-36); BLOOD UREA NITROGEN 9 mg/dL (7-21); CALCIUM 8.9 mg/dL (8.4-10.5); GFR NON-AFRICAN AMERICAN > 60
[2018-09-14] MEDS ORDERED: Potassium Chloride 20 mEq ER Tab PO STA (08:04)
[2018-09-14] MEDS: Divalproex 250 mg DR (BID formulation) PO SCH ×2 (09:35→21:25)
[2018-09-14] MEDS: Multivitamin Therapeutic Tab PO SCH (09:37)
[2018-09-14] MEDS: Enoxaparin 40 mg Syringe SC SCH (09:39)
[2018-09-14] MEDS: Non Formulary Medication (Cholecalciferol (Vitamin D3) [Vitamin D3] 1,000 UNIT) PO SCH (09:48)
--- NOTE | 2018-09-14 11:29 | CP.PCM.PN ---
<Andres Martinez - Last Filed: 09/14/18 14:52> Subjective - Date & Time of Evaluation Date of Evaluation: 09/14/18 Time of Evaluation: 08:30 - Subjective Subjective: Andres Martinez, PGY1 Medicine Progress Note: Pt was seen and examined this AM at bedside. Pt states that she is still having some weakness. Overnight she had some pain which was managed by night team. PT will walk with the pt today. Objective - Vital Signs/Intake and Output Vital Signs (last 24 hours): Temp Pulse Resp BP Pulse Ox 98.3 F 98 H 20 124/80 95 09/14/18 08:42 09/14/18 09:38 09/14/18 08:42 09/14/18 09:38 09/14/18 08:42 - Medications Medications: Current Medications Aspirin (Ecotrin) 81 mg PO DAILY [facility] Last Admin: 09/14/18 09:35 Dose: 81 mg Calcium Carbonate (Caltrate) 600 mg PO DAILY [facility] Last Admin: 09/14/18 09:39 Dose: 600 mg Divalproex Sodium (Depakote Dr (*Bid*)) 250 mg PO AMHS [facility]; Protocol Last Admin: 09/14/18 09:35 Dose: 250 mg Duloxetine HCl (Cymbalta) 20 mg PO DAILY [facility] Last Admin: 09/14/18 09:36 Dose: 20 mg Enoxaparin Sodium (Lovenox) 40 mg SC DAILY [facility]; Protocol Last Admin: 09/14/18 09:39 Dose: 40 mg Gabapentin (Neurontin) 600 mg PO TID [facility]; Protocol Last Admin: 09/14/18 09:35 Dose: 600 mg Ketorolac Tromethamine (Toradol) 15 mg IVP Q4 PRN PRN Reason: Pain, moderate (4-7) Last Admin: 09/14/18 10:14 Dose: 15 mg Lisinopril (Zestril) 2.5 mg PO DAILY [facility] Last Admin: 09/14/18 09:38 Dose: 2.5 mg Multivitamins (Thera Tab) 1 tab PO DAILY [facility] Last Admin: 09/14/18 09:37 Dose: 1 tab Non-Formulary Medication (Cholecalciferol (Vitamin D3) [Vitamin D3]) 1,000 unit PO DAILY [facility] Last Admin: 09/14/18 09:48 Dose: Not Given Oxycodone HCl (Oxycodone Immediate Release Tab) 30 mg PO Q6H PRN PRN Reason: Pain, severe (8-10) Last Admin: 09/14/18 05:15 Dose: 30 mg Ropinirole HCl (Requip) 0.25 mg PO HS PRN PRN Reason: Restlessness Last Admin: 09/13/18 21:22 Dose: 0.25 mg - Labs Labs: 09/14/18 06:30 09/14/18 06:30 PT 14.8 SECONDS (9.4-12.5) H 09/12/18 22:15 INR 1.33 09/12/18 22:15 APTT 37.2 Seconds (26.9-38.3) 09/12/18 22:15 - Constitutional Additional comments: Fatigued - Head Exam Head Exam: ATRAUMATIC, NORMAL INSPECTION - Eye Exam Eye Exam: EOMI, Normal appearance - ENT Exam ENT Exam: Mucous Membranes Dry - Respiratory Exam Respiratory Exam: Clear to Auscultation Bilateral. absent: Chest Wall Tenderness, Rales, Rhonchi, Wheezes, Respiratory Distress - Cardiovascular Exam Cardiovascular Exam: RRR, +S1, +S2 - GI/Abdominal Exam GI & Abdominal Exam: Normal Bowel Sounds, Soft. absent: Firm, Guarding, Pulsatile Mass, Rebound, Rigid, Tenderness Additional comments: No suprapubic tenderness - Extremities Exam Extremities exam: Positive for: normal capillary refill, normal inspection, pedal pulses present - Back Exam Back exam: NORMAL INSPECTION - Neurological Exam Neurological exam: Alert, CN II-XII Intact, Oriented x3, Reflexes Normal - Psychiatric Exam Psychiatric exam: Normal Affect, Normal Mood - Skin Skin Exam: Dry, Intact, Normal Color, Warm Assessment & Plan - Assessment and Plan (Free Text) Assessment: Patient is a 63 year old female, whose past medical history includes stage IV invasive ductal carcinoma/breast cancer with bony mets, MSSA bacteremia, HTN, CAD, and OA presents to the emergency department complaining of weakness. Plan: Weakness 2/2 Hypokalemia vs Poor PO Intake vs Normocytic Anemia - HHD - K was 3.5, repleted - Replete all electrolyte derangements - frequent vital checks - frequent neuro checks - Hgb 8.5 (baseline around 8.8); no active bleeding at this time - Iron studies - FOBT as Hgb lower than baseline - UDS - procal - UCx and BCx - UA: negative for UTI - CXR: no consolidation/infiltrate - Oxy 30 q6 for pain - Toradol 15 q4 PRN - Gabapentin 600 TID - PT eval HTN - Cont home zestril 2.5 CAD - ASA 81mg daily Stage IV Invasive Ductal Carcinoma/Breast Cancer with Bony Mets - Will cont to monitor ppx: - Lovenox Diet: HHD Dispo: PT recommends TCU for pt, awaiting eval and placement. Case was seen and discussed with Dr. Shira Martinez, PGY1 <Ignacio Silva - Last Filed: 09/14/18 15:11> Objective - Vital Signs/Intake and Output Vital Signs (last 24 hours): Temp Pulse Resp BP Pulse Ox 98.3 F 98 H 20 124/80 95 09/14/18 08:42 09/14/18 09:38 09/14/18 08:42 09/14/18 09:38 09/14/18 08:42 - Medications Medications: Current Medications Aspirin (Ecotrin) 81 mg PO DAILY [facility] Last Admin: 09/14/18 09:35 Dose: 81 mg Calcium Carbonate (Caltrate) 600 mg PO DAILY [facility] Last Admin: 09/14/18 09:39 Dose: 600 mg Divalproex Sodium (Depakote Dr (*Bid*)) 250 mg PO AMHS [facility]; Protocol Last Admin: 09/14/18 09:35 Dose: 250 mg Duloxetine HCl (Cymbalta) 20 mg PO DAILY [facility] Last Admin: 09/14/18 09:36 Dose: 20 mg Enoxaparin Sodium (Lovenox) 40 mg SC DAILY [facility]; Protocol Last Admin: 09/14/18 09:39 Dose: 40 mg Gabapentin (Neurontin) 600 mg PO TID [facility]; Protocol Last Admin: 09/14/18 14:42 Dose: 600 mg Ketorolac Tromethamine (Toradol) 15 mg IVP Q4 PRN PRN Reason: Pain, moderate (4-7) Last Admin: 09/14/18 10:14 Dose: 15 mg Lisinopril (Zestril) 2.5 mg PO DAILY [facility] Last Admin: 09/14/18 09:38 Dose: 2.5 mg Multivitamins (Thera Tab) 1 tab PO DAILY [facility] Last Admin: 09/14/18 09:37 Dose: 1 tab Non-Formulary Medication (Cholecalciferol (Vitamin D3) [Vitamin D3]) 1,000 unit PO DAILY [facility] Last Admin: 09/14/18 09:48 Dose: Not Given Oxycodone HCl (Oxycodone Immediate Release Tab) 30 mg PO Q6H PRN PRN Reason: Pain, severe (8-10) Last Admin: 09/14/18 12:09 Dose: 30 mg Ropinirole HCl (Requip) 0.25 mg PO HS PRN PRN Reason: Restlessness Last Admin: 09/13/18 21:22 Dose: 0.25 mg - Labs Labs: 09/14/18 06:30 09/14/18 06:30 PT 14.8 SECONDS (9.4-12.5) H 09/12/18 22:15 INR 1.33 09/12/18 22:15 APTT 37.2 Seconds (26.9-38.3) 09/12/18 22:15 Attending/Attestation - Attestation I have personally seen and examined this patient.: Yes I have fully participated in the care of the patient.: Yes I have reviewed all pertinent clinical information, including history, physical exam and plan: Yes Notes (Text): 09/14/18 15:09 Patient was seen and examined with medical auditor. 63 year old female, whose past medical history includes stage IV invasive ductal carcinoma/breast cancer with bony mets, MSSA bacteremia, HTN, CAD, and OA presents to the emergency department complaining of weakness. She was found to be confused and hypokalemic, Etiology of confusion is due to Narcotic abuse , took extra medication at home.Mental status is back to base line. Blood cultures are negative for any growth. Hypokalemia is resolved. Patient was recently discharged from [facility], famil;y is requesting assisted living placement.PT is consulted
[2018-09-14 16:15] LABS: BARBITURATES, UR NEGATIVE (NEGATIVE); BENZODIAZEPINES, UR NEGATIVE (NEGATIVE); OPIATES, UR POSITIVE (NEGATIVE); PHENCYCLIDINE, UR NEGATIVE (NEGATIVE)
[2018-09-15 06:37] LABS: HEMOGLOBIN 9.1 g/dL (12.0-16.0); MEAN CELL VOLUME 80.4 fl (80.0-105.0); MEAN CORPUSCULAR HEMOGLOBIN 23.5 pg (25.0-35.0); MEAN CORPUSCULAR HGB CONC 29.2 g/dl (31.0-37.0); MEAN PLATELET VOLUME 9.2 fl (7.0-11.0); RBC 3.88 10^6/uL (3.5-6.1); RED CELL DISTRIBUTION WIDTH 16.9 % (11.5-14.5); WHITE BLOOD COUNT 7.8 10^3/uL (4.5-11.0)
[2018-09-15 07:28] LABS: ALB/GLOB RATIO 0.8 (1.1-1.8); ALBUMIN 3.8 g/dL (3.0-4.8); ALT/SGPT 11 U/L (7-56); AST/SGOT 60 U/L (14-36); BLOOD UREA NITROGEN 13 mg/dL (7-21); CALCIUM 9.4 mg/dL (8.4-10.5); GFR NON-AFRICAN AMERICAN > 60
[2018-09-15] MEDS: oxyCODONE 30 mg Immediate Release Tab PO PRN ×3 (07:32→20:10)
[2018-09-15] MEDS: Enoxaparin 40 mg Syringe SC SCH ×2 (09:42→09:47)
[2018-09-15] MEDS: Divalproex 250 mg DR (BID formulation) PO SCH ×2 (09:43→21:47)
[2018-09-15] MEDS: Multivitamin Therapeutic Tab PO SCH (09:43)
[2018-09-15] MEDS: POLYETHYLENE GLYCOL 3350 17 GM/Dose PACKET PO SCH (09:44)
[2018-09-15] MEDS: Non Formulary Medication (Cholecalciferol (Vitamin D3) [Vitamin D3] 1,000 UNIT) PO SCH (09:44)
--- NOTE | 2018-09-15 13:31 | CP.PCM.PN ---
<Josue Santoyo - Last Filed: 09/15/18 14:42> Subjective - Date & Time of Evaluation Date of Evaluation: 09/15/18 Time of Evaluation: 06:00 - Subjective Subjective: Josue Santoyo DO PGY1 Hospitalist Progress Note for Dr Shaffer Patient seen and examined at bedside. She c/o right thigh pain to the knee level. Getting better with pain meds. Had BM 2 days ago, on oxycodone at home. Denies CP, SOB, palpitation. No acute events overnight Objective - Vital Signs/Intake and Output Vital Signs (last 24 hours): Temp Pulse Resp BP Pulse Ox 98.2 F 75 20 120/70 97 09/15/18 08:32 09/15/18 10:00 09/15/18 08:32 09/15/18 09:42 09/15/18 08:32 Intake and Output: 09/15/18 09/15/18 06:59 18:59 Intake Total 120 Balance 120 - Medications Medications: Current Medications Aspirin (Ecotrin) 81 mg PO DAILY [facility] Last Admin: 09/15/18 09:42 Dose: 81 mg Calcium Carbonate (Caltrate) 600 mg PO DAILY [facility] Last Admin: 09/15/18 09:43 Dose: 600 mg Divalproex Sodium (Depakote Dr (*Bid*)) 250 mg PO [facility]; Protocol Last Admin: 09/15/18 09:43 Dose: 250 mg Docusate Sodium (Colace) 100 mg PO BID [facility] Last Admin: 09/15/18 09:43 Dose: 100 mg Duloxetine HCl (Cymbalta) 20 mg PO DAILY [facility] Last Admin: 09/15/18 09:43 Dose: 20 mg Enoxaparin Sodium (Lovenox) 40 mg SC DAILY [facility]; Protocol Last Admin: 09/15/18 09:47 Dose: Not Given Gabapentin (Neurontin) 600 mg PO TID [facility]; Protocol Last Admin: 09/15/18 09:43 Dose: 600 mg Ketorolac Tromethamine (Toradol) 15 mg IVP Q4 PRN PRN Reason: Pain, moderate (4-7) Last Admin: 09/14/18 21:32 Dose: 15 mg Lisinopril (Zestril) 2.5 mg PO DAILY [facility] Last Admin: 09/15/18 09:42 Dose: 2.5 mg Multivitamins (Thera Tab) 1 tab PO DAILY [facility] Last Admin: 09/15/18 09:43 Dose: 1 tab Non-Formulary Medication (Cholecalciferol (Vitamin D3) [Vitamin D3]) 1,000 unit PO DAILY [facility] Last Admin: 09/15/18 09:44 Dose: Not Given Oxycodone HCl (Oxycodone Immediate Release Tab) 30 mg PO Q6H PRN PRN Reason: Pain, severe (8-10) Last Admin: 09/15/18 07:32 Dose: 30 mg Polyethylene Glycol (Miralax) 17 gm PO DAILY [facility] Last Admin: 09/15/18 09:44 Dose: 17 gm Ropinirole HCl (Requip) 0.25 mg PO HS PRN PRN Reason: Restlessness Last Admin: 09/13/18 21:22 Dose: 0.25 mg - Labs Labs: 09/15/18 06:00 09/15/18 06:00 PT 14.8 SECONDS (9.4-12.5) H 09/12/18 22:15 INR 1.33 09/12/18 22:15 APTT 37.2 Seconds (26.9-38.3) 09/12/18 22:15 - Constitutional Appears: Well, Non-toxic - Head Exam Head Exam: ATRAUMATIC, NORMAL INSPECTION, NORMOCEPHALIC - Eye Exam Eye Exam: Normal appearance, PERRL Pupil Exam: NORMAL ACCOMODATION - ENT Exam ENT Exam: Mucous Membranes Moist, Normal Exam - Neck Exam Neck Exam: Normal Inspection - Respiratory Exam Respiratory Exam: Clear to Ausculation Bilateral, NORMAL BREATHING PATTERN - Cardiovascular Exam Cardiovascular Exam: REGULAR RHYTHM, +S1, +S2. absent: Murmur - GI/Abdominal Exam GI & Abdominal Exam: Soft, Normal Bowel Sounds. absent: Tenderness - Extremities Exam Extremities Exam: Normal Capillary Refill, Pedal Edema - Back Exam Back Exam: NORMAL INSPECTION - Neurological Exam Neurological Exam: Alert, Awake, CN II-XII Intact, Oriented x3 - Psychiatric Exam Psychiatric exam: Normal Affect, Normal Mood - Skin Skin Exam: Dry, Intact, Normal Color, Warm Assessment and Plan - Assessment and Plan (Free Text) Assessment: 63 y/o female with PMH of metastatic invasive ductal carcinoma of the breast, HTN, CAD, OA. Admitted for weakness in the setting of poor oral intake. Plan: Weakness/ deconditioning in the setting of breast cancer: -likely due to opiates use, poor oral intake -patient found to be hypokalemic; now corrected, monitor lytes and replete as needed -evaluated by PT and recommended TSU, waiting for eval -UA negative for UTI, patient afebrile, no leukocytosis, low procal -CXR: pulmonary vascular congestion. no cosolidation Metastatic invasive ductal carcinoma of the breast: -continue home med oxycodone 30 q6 -continue toradol 15 mg q4 prn -continue home med gabapentin -started colace, miralax for constipation Anemia: -H/H stable. continue to monitor -iron studies: low iron, %sat, normal TIBC -folate/vitamin B12 wnl HTN: -continue home med zestril, asa LE edema: -f/u LE US PPX: -DVT: SCD, lovenox -GI: protonix -HHD -TCU eval -rn social services referral Case reviewed and plan discussed with attending Dr Edmund Santoyo, DO <Summer Shaffer R - Last Filed: 09/15/18 18:23> Objective - Vital Signs/Intake and Output Vital Signs (last 24 hours): Temp Pulse Resp BP Pulse Ox 99 F 96 H 19 131/74 95 09/15/18 17:07 09/15/18 17:07 09/15/18 17:07 09/15/18 17:07 09/15/18 17:07 Intake and Output: 09/15/18 09/15/18 06:59 18:59 Intake Total 120 Balance 120 - Medications Medications: Current Medications Aspirin (Ecotrin) 81 mg PO DAILY [facility] Last Admin: 09/15/18 09:42 Dose: 81 mg Calcium Carbonate (Caltrate) 600 mg PO DAILY [facility] Last Admin: 09/15/18 09:43 Dose: 600 mg Divalproex Sodium (Depakote Dr (*Bid*)) 250 mg PO [facility]; Protocol Last Admin: 09/15/18 09:43 Dose: 250 mg Docusate Sodium (Colace) 100 mg PO BID [facility] Last Admin: 09/15/18 17:29 Dose: 100 mg Duloxetine HCl (Cymbalta) 20 mg PO DAILY [facility] Last Admin: 09/15/18 09:43 Dose: 20 mg Enoxaparin Sodium (Lovenox) 40 mg SC DAILY [facility]; Protocol Last Admin: 09/15/18 09:47 Dose: Not Given Gabapentin (Neurontin) 600 mg PO TID [facility]; Protocol Last Admin: 09/15/18 17:29 Dose: 600 mg Lisinopril (Zestril) 2.5 mg PO DAILY [facility] Last Admin: 09/15/18 09:42 Dose: 2.5 mg Multivitamins (Thera Tab) 1 tab PO DAILY [facility] Last Admin: 09/15/18 09:43 Dose: 1 tab Non-Formulary Medication (Cholecalciferol (Vitamin D3) [Vitamin D3]) 1,000 unit PO DAILY [facility] Last Admin: 09/15/18 09:44 Dose: Not Given Oxycodone HCl (Oxycodone Immediate Release Tab) 30 mg PO Q6H PRN PRN Reason: Pain, severe (8-10) Last Admin: 09/15/18 14:03 Dose: 30 mg Polyethylene Glycol (Miralax) 17 gm PO DAILY [facility] Last Admin: 09/15/18 09:44 Dose: 17 gm Ropinirole HCl (Requip) 0.25 mg PO HS PRN PRN Reason: Restlessness Last Admin: 09/13/18 21:22 Dose: 0.25 mg - Labs Labs: 09/15/18 06:00 09/15/18 06:00 PT 14.8 SECONDS (9.4-12.5) H 09/12/18 22:15 INR 1.33 09/12/18 22:15 APTT 37.2 Seconds (26.9-38.3) 09/12/18 22:15 Attending/Attestation - Attestation I have personally seen and examined this patient.: Yes I have fully participated in the care of the patient.: Yes I have reviewed all pertinent clinical information, including history, physical exam and plan: Yes Notes (Text): Patient seen and examined by me with resident at approximately 10:35 AM on 09/15/18. Case including HPI, physical exam, and assessment and plan discussed with resident. Agree with above with following additions/corrections. Patient is a 63-year-old female past medical history significant for hypertension, hyperlipidemia, stage IV breast cancer with metastases to the bone, falls, recurrent MSSA bacteremia, coronary artery disease, and os teoarthritis on chronic pain medications that presented to the emergency room with weakness. Patient states that she is feeling ok. Complains of chronic right hip pain radiating to right knee. States she got her pain medications late and believes thats why it hurts. Patient states that she is working with physical therapy. She denies any chest pain or shortness of breath. No headaches or dizziness. No fevers or chills. No dysuria. No nausea, vomiting, or abdominal pain. Patient states that she has had one bowel movement since being in the hospital. Physical exam: General: Awake and alert sitting up in bed in no acute distress HEENT: Normocephalic, atraumatic. Extraocular muscles intact. Pupils equal and reactive, no scleral icterus. Oropharynx is pink and moist. No pharyngeal erythema or exudate appreciated. Neck is supple. Cardiovascular: Normal rhythm. Normal S1 and S2. No murmurs, rubs, or gallops appreciated Pulmonary: Normal respiratory effort. No rhonchi, rales, or wheezing lucas reciated. Gastrointestinal: Soft. Nondistended. Nontender. Positive bowel sounds all 4 quadrants. No guarding. Musculoskeletal: Moves all extremities. No calf tenderness. Positive right lower extremity pitting edema. Central nervous system: AAO x 3 Dermatologic: Skin warm and dry. Assessment and plan: Patient is a 63-year-old female past medical history significant for hypertension, hyperlipidemia, stage IV breast cancer with metastases to the bone, falls, recurrent MSSA bacteremia, coronary artery disease, and osteoarthritis on chronic pain medications that presented to the emergency room with weakness. 1. Weakness. Likely secondary to poor PO intake and hypokalemia. Improved. S/P IV fluids. Hypokalemis resolved. Continue PT. No leukocytosis. Patient afebrile. Blood cultures with no growth. 2. Lower extremity edema. Follow up venous dopplers to rule out DVT. 3. Essential Hypertension. Continue lisinopril 4. CAD. Continue ASA and Lisinopril 5. Chronic pain. Neuropathy. Continue home oxycodone as needed. Continue home Neurontin. 6. Chronic anemia. H&H stable. No signs of bleeding. Continue to monitor. 7. Metastatic breast cancer. Patient to continue follow up with her doctor. 8. Psychiatric disorder. Continue Cymbalta and Depakote. 9. Restless leg syndrome. Continue requip prn 10. DVT prophylaxis. Lovenox. Case was discussed in detail with the patient regarding diagnosis, study results, and treatment plan. All questions answered.
[2018-09-16] MEDS: oxyCODONE 30 mg Immediate Release Tab PO PRN ×3 (02:08→14:48)
[2018-09-16 08:10] VITALS: BP 133/84; PULSE 108; RESP 20; TEMP 98.8; O2SAT 97
[2018-09-16 08:13] LABS: HEMOGLOBIN 8.5 g/dL (12.0-16.0); MEAN CELL VOLUME 79.6 fl (80.0-105.0); MEAN CORPUSCULAR HEMOGLOBIN 23.5 pg (25.0-35.0); MEAN CORPUSCULAR HGB CONC 29.5 g/dl (31.0-37.0); MEAN PLATELET VOLUME 8.9 fl (7.0-11.0); RBC 3.62 10^6/uL (3.5-6.1); RED CELL DISTRIBUTION WIDTH 16.7 % (11.5-14.5); WHITE BLOOD COUNT 7.9 10^3/uL (4.5-11.0)
[2018-09-16 08:30] LABS: ALB/GLOB RATIO 0.8 (1.1-1.8); ALBUMIN 3.5 g/dL (3.0-4.8); ALT/SGPT 19 U/L (7-56); AST/SGOT 46 U/L (14-36); BLOOD UREA NITROGEN 13 mg/dL (7-21); CALCIUM 9.3 mg/dL (8.4-10.5); GFR NON-AFRICAN AMERICAN > 60
[2018-09-16] MEDS: Non Formulary Medication (Cholecalciferol (Vitamin D3) [Vitamin D3] 1,000 UNIT) PO SCH (10:41)
[2018-09-16] MEDS: Divalproex 250 mg DR (BID formulation) PO SCH (10:42)
[2018-09-16] MEDS: Enoxaparin 40 mg Syringe SC SCH ×2 (10:43→10:49)
[2018-09-16] MEDS: POLYETHYLENE GLYCOL 3350 17 GM/Dose PACKET PO SCH ×2 (10:44→10:50)
[2018-09-16] MEDS: Multivitamin Therapeutic Tab PO SCH (10:45)
--- NOTE | 2018-09-16 12:30 | CP.PCM.DIS ---
Provider - Provider Date of Admission: 09/15/18 16:53 Attending physician: Summer Shaffer DO Primary care physician: MARIA DE JESUS PRIMARY CARE PROVIDER Consults: 09/13/18 03:35 Nursing Referral for Palliative Care Routine Comment: Physician Instructions: Reason For Exam: protocol Social Work Referral Routine Comment: dc planning Physician Instructions: Reason For Exam: dc planning 09/14/18 11:29 Case Management Referral Routine Comment: Physician Instructions: Reason For Exam: Plan for d/c to TCU Reason for Referral: Discharge Planning Evaluation for TRCU Routine Comment: Physician Instructions: Reason For Exam: Weakness, physical deconditioning Time Spent in preparation of Discharge (in minutes): 45 Hospital Course - Lab Results Lab Results: Micro Results 09/12/18 22:45 Blood Blood Culture - Preliminary NO GROWTH AFTER 3 DAYS 09/12/18 22:15 Blood Blood Culture - Preliminary NO GROWTH AFTER 3 DAYS 09/13/18 00:30 Urine Random Urine Culture - Final No Growth (<1,000 CFU/ML) Most Recent Lab Values WBC 7.9 10^3/uL (4.5-11.0) 09/16/18 08:00 RBC 3.62 10^6/uL (3.5-6.1) 09/16/18 08:00 Hgb 8.5 g/dL (12.0-16.0) L 09/16/18 08:00 Hct 28.8 % (36.0-48.0) L 09/16/18 08:00 MCV 79.6 fl (80.0-105.0) L 09/16/18 08:00 MCH 23.5 pg (25.0-35.0) L 09/16/18 08:00 MCHC 29.5 g/dl (31.0-37.0) L 09/16/18 08:00 RDW 16.7 % (11.5-14.5) H 09/16/18 08:00 Plt Count 249 10^3/uL (120.0-450.0) 09/16/18 08:00 MPV 8.9 fl (7.0-11.0) 09/16/18 08:00 Neut % (Auto) 58.7 % (50.0-68.0) 09/12/18 22:15 Lymph % (Auto) 18.2 % (22.0-35.0) L 09/12/18 22:15 Travis % (Auto) 20.8 % (1.0-6.0) H 09/12/18 22:15 Eos % (Auto) 2.0 % (1.5-5.0) 09/12/18 22:15 Baso % (Auto) 0.3 % (0.0-3.0) 09/12/18 22:15 Lymph # (Auto) 1.2 (1.2-3.4) 09/12/18 22:15 Travis # (Auto) 1.4 (0.1-0.6) H 09/12/18 22:15 Eos # (Auto) 0.1 (0.0-0.7) 09/12/18 22:15 Baso # (Auto) 0.02 K/mm3 (0.0-2.0) 09/12/18 22:15 Absolute Neuts (auto) 3.83 (1.4-6.5) 09/12/18 22:15 Neutrophils % (Manual) 62 % (50.0-70.0) 09/12/18 22:15 Lymphocytes % (Manual) 20 % (22.0-35.0) L 09/12/18 22:15 Monocytes % (Manual) 16 % (1.0-6.0) H 09/12/18 22:15 Eosinophils % (Manual) 2 % (0.0-3.0) 09/12/18 22:15 Platelet Evaluation Normal (NORMAL) 09/12/18 22:15 PT 14.8 SECONDS (9.4-12.5) H 09/12/18 22:15 INR 1.33 09/12/18 22:15 APTT 37.2 Seconds (26.9-38.3) 09/12/18 22:15 pO2 37 mm/Hg (30-55) 09/12/18 22:20 VBG pH 7.41 (7.32-7.43) 09/12/18 22:20 VBG pCO2 34.0 (40-60) L 09/12/18 22:20 VBG HCO3 21.6 mmol/l (21-28) 09/12/18 22:20 VBG Total CO2 22.6 mmol.L (22-28) 09/12/18 22:20 VBG O2 Sat (Calc) 71.4 % (40-65) H 09/12/18 22:20 VBG Base Excess -2.4 mmol/L (0.0-2.0) L 09/12/18 22:20 VBG Potassium 3.0 mmol/L (3.6-5.2) L 09/12/18 22:20 Sodium 139.0 mmol/L (132-148) 09/12/18 22:20 Chloride 110.0 mmol/L (98-107) H 09/12/18 22:20 Glucose 115 mg/dl (65-105) H 09/12/18 22:20 Lactate 1.6 mmol/L (0.7-2.1) 09/12/18 22:20 FiO2 21.0 % 09/12/18 22:20 Sodium 138 mmol/L (132-148) 09/16/18 08:00 Potassium 4.3 mmol/L (3.6-5.0) 09/16/18 08:00 Chloride 104 mmol/L (98-107) 09/16/18 08:00 Carbon Dioxide 28 mmol/L (21-33) 09/16/18 08:00 Anion Gap 11 (10-20) 09/16/18 08:00 BUN 13 mg/dL (7-21) 09/16/18 08:00 Creatinine 0.6 mg/dl (0.7-1.2) L 09/16/18 08:00 Est GFR ( Amer) > 60 09/16/18 08:00 Est GFR (Non-Af Amer) > 60 09/16/18 08:00 Random Glucose 93 mg/dL (70-110) 09/16/18 08:00 Calcium 9.3 mg/dL (8.4-10.5) 09/16/18 08:00 Phosphorus 3.4 mg/dL (2.5-4.5) 09/12/18 22:15 Magnesium 1.8 mg/dL (1.7-2.2) 09/12/18 22:15 Iron 26 ug/dL (45-180) L 09/13/18 06:00 TIBC 305 ug/dL (265-497) 09/13/18 06:00 % Saturation 9 % (20-55) L 09/13/18 06:00 Transferrin 200.99 mg/dL (206-381) L 09/13/18 06:00 Ferritin 377.0 ng/mL 09/13/18 06:00 Total Bilirubin 0.6 mg/dL (0.2-1.3) 09/16/18 08:00 AST 46 U/L (14-36) H D 09/16/18 08:00 ALT 19 U/L (7-56) 09/16/18 08:00 Alkaline Phosphatase 112 U/L (38-126) 09/16/18 08:00 Ammonia 37 umol/L (9-33) H 09/12/18 23:45 Troponin I < 0.01 ng/mL 09/12/18 22:15 C-React Prot High Sens > 15.00 mg/L (1.00-3.00) H 09/12/18 22:15 NT-Pro-B Natriuret Pep 252 pg/mL (0-450) 09/12/18 22:15 Total Protein 7.6 g/dL (5.8-8.3) 09/16/18 08:00 Albumin 3.5 g/dL (3.0-4.8) 09/16/18 08:00 Globulin 4.2 gm/dL 09/16/18 08:00 Albumin/Globulin Ratio 0.8 (1.1-1.8) L 09/16/18 08:00 Vitamin B12 682 pg/mL (239-931) 09/13/18 06:00 Folate > 20.0 ng/mL 09/13/18 06:00 Procalcitonin < 0.05 NG/ML (0.19-0.49) L 09/12/18 22:15 Venous Blood Potassium 3.0 mmol/L (3.6-5.2) L 09/12/18 22:20 Urine Color Yellow (YELLOW) 09/13/18 00:30 Urine Appearance Clear (CLEAR) 09/13/18 00:30 Urine pH 6.0 (4.7-8.0) 09/13/18 00:30 Ur Specific Chadwick 1.025 (1.005-1.035) 09/13/18 00:30 Urine Protein Trace mg/dL (<30 mg/dL) H 09/13/18 00:30 Urine Glucose (UA) Negative mg/dL (NEGATIVE) 09/13/18 00:30 Urine Ketones Trace mg/dL (NEGATIVE) H 09/13/18 00:30 Urine Blood Negative (NEGATIVE) 09/13/18 00:30 Urine Nitrate Negative (NEGATIVE) 09/13/18 00:30 Urine Bilirubin Negative (NEGATIVE) 09/13/18 00:30 Urine Urobilinogen 1.0 E.U./dL (<1 E.U./dL) H 09/13/18 00:30 Ur Leukocyte Esterase Negative Simba/uL (NEGATIVE) 09/13/18 00:30 Urine RBC 0 - 2 /hpf (0-2) 09/13/18 00:30 Urine WBC 0 - 2 /hpf (0-6) 09/13/18 00:30 Ur Epithelial Cells 3 - 4 /hpf (0-5) 09/13/18 00:30 Urine Bacteria Occ /hpf (NONE) 09/13/18 00:30 Urine Opiates Screen Positive (NEGATIVE) H 09/14/18 15:00 Urine Methadone Screen Negative (NEGATIVE) 09/14/18 15:00 Ur Barbiturates Screen Negative (NEGATIVE) 09/14/18 15:00 Ur Phencyclidine Scrn Negative (NEGATIVE) 09/14/18 15:00 Ur Amphetamines Screen Negative (NEGATIVE) 09/14/18 15:00 U Benzodiazepines Scrn Negative (NEGATIVE) 09/14/18 15:00 U Oth Cocaine Metabols Negative (NEGATIVE) 09/14/18 15:00 U Cannabinoids Screen Negative (NEGATIVE) 09/14/18 15:00 - Hospital Course Hospital Course: 63 year old female with past medical history of Stage IV ductal carcinoma/breast cancer with bone metastasis, MSSA bacteremia, HTN, CAD, and osteoarthritis presented to the ED with complaint of weakness. Patient was AAOx3 but stated she was dropped off by her family and does not understand why. The patient's family was not present during interview. Patient also mentioned that she's had decreased food and water intake. In the ED, EKG showed NSR @ 92 bpm. CXR showed pulmonary vascular congestins but no focal consolidation, infiltrate, or pleural effusion. UA negative for UTI. Labwork showed low Ca and K, which were both repleted, along with low Hgb but no signs of active bleeding. Iron studies showed low Iron, %sat and transferrin. Blood and urine cultures showed no growth. On admission, patient was started on her home medications as prescribed. Lower extremity ultrasound showed no evidence of DVT bilaterally. It is noted that the patient was recently discharged from [facility] to home with [employer] for 16 hours/wk, but the family requested placement into assisted living facility. Patient was found to be stable and ready for discharge. Patient was told to follow up with her PCP within 3-5 days. Patient was told to continue taking her home medication, listed above, as prescribed. Patient was told to return to the emergency department if she had any new or concerning symptoms. This is a brief summary of the events that transpired at the hospital. For more information, please refer to the hospital documentation. Discharge Exam - Head Exam Head Exam: ATRAUMATIC, NORMAL INSPECTION, NORMOCEPHALIC - Eye Exam Eye Exam: EOMI, Normal appearance Pupil Exam: NORMAL ACCOMODATION - ENT Exam ENT Exam: Normal Exam - Neck Exam Neck exam: Normal Inspection - Respiratory Exam Respiratory Exam: Clear to PA & Lateral, NORMAL BREATHING PATTERN - Cardiovascular Exam Cardiovascular Exam: REGULAR RHYTHM, +S1, +S2 - GI/Abdominal Exam GI & Abdominal Exam: Normal Bowel Sounds, Soft - Extremities Exam Extremities exam: normal capillary refill, pedal pulses present - Neurological Exam Neurological exam: Alert, CN II-XII Intact, Normal Gait, Oriented x3, Reflexes Normal - Psychiatric Exam Psychiatric exam: Normal Affect, Normal Mood - Skin Skin Exam: Dry, Intact, Normal Color, Warm Discharge Plan - Follow Up Plan Condition: STABLE Disposition: HOME/ ROUTINE Instructions: Hypokalemia, Fatigue (DC), Generalized Weakness, Performing Self- Care Activities When You Have Weakness on One Side Additional Instructions: - Please follow up with a primary care physician within 3-5 days of discharge. If you do not have one, YOU WILL NEED TO CALL YOUR INSURANCE COMPANY TO SET YOU UP WITH A PRIMARY CARE DOCTOR THAT IS COVERED BY YOUR INSURANCE COMPANY - Please continue your previous home medications as prescribed by your doctor. - Return to the nearest emergency department if the symptoms recur or you experience new concerning symptoms. Referrals: PCP,NO [Primary Care Provider] -
== END 2018-09-16 19:08 | disposition home or self-care (01) | DRG 641 ==
LOC: ED 21:39 → ERH 09-13 00:56 → 3RSO 09-13 01:50 → OBSVTOIN 09-15 16:53
PROVIDERS: ADMIT Internal Medicine; ATTEND Hospitalist
DX: E87.6 Hypokalemia (principal); C79.51 Secondary malignant neoplasm of bone; C50.919 Malignant neoplasm of unspecified site of unspecified female breast; R53.1 Weakness; I10 Essential (primary) hypertension; E78.5 Hyperlipidemia, unspecified; I25.10 Atherosclerotic heart disease of native coronary artery without angina pectoris; G89.29 Other chronic pain; F11.10 Opioid abuse, uncomplicated; M25.551 Pain in right hip; G62.9 Polyneuropathy, unspecified; G25.81 Restless legs syndrome; D64.9 Anemia, unspecified; K59.00 Constipation, unspecified; Z87.891 Personal history of nicotine dependence; Z79.899 Other long term (current) drug therapy